=== PATIENT | female | born 1990 | race Caucasian/White ===

== ENCOUNTER 2022-12-05 13:57 | Outpatient (OUT) | payer OTHER, SELFPAY ==
--- NOTE | 2022-12-05 14:20 | CONS_ITS ---
CONSULTATION DATE: ??12/05/2022 TO:? Dayna Reeves CNP CHIEF COMPLAINT:? Left forearm pain from a work related injury. HISTORY:? She reports the pain as being 7-8/10 pain, sharp in character, seems to increase with activity such as pushing and pulling maneuvers.? She feels most comfortable in the semi-recumbent position.? Denies any change in bowel and bladder habits or new sensorimotor changes in the upper extremities. EXAM:? Notable for patient having some mild skin color changes overlying her left distal extremity, compared to the right.? She has some mild atrophy of her left thenar muscles compared to the right side.? There was no patchy dysesthesia but no true allodynia was noted in the area of pain.? There were no vascular changes.? I was unable to appreciate any nail growth changes, because the patient is wearing artificial nails.? It appears the patient has point tenderness along the medial and lateral aspect of her scar, and she has some mild myofascial spasm of various flexes of her left forearm compared to the right side. IMPRESSION:? 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 Diagnosis code G56.32 with associated myofascial spasm. PLAN:? I have placed her on baclofen 10 mg pills, half a pill to one pill b.i.d.? We will follow up with patient via telephone next week to monitor her response to the change in medication. As part of providing excellent, safe, comprehensive care, the following was completed at our patient's visit: 1. A medication reconciliation and review to ensure accurate knowledge of current/active medications, including asking our patients to inform us about any gzgj-aeu-dtijhqv medications or herbal remedies/nutritional supplements/alternative remedies. 2. A review to specifically ensure our patients have had annual screening for: elevated body mass index (BMI, see intake chart for exact total), tobacco use, screening for depression, and screening for unhealthy alcohol use.? When screening is concerning, patients are provided with education and the specific recommendation to discuss the concerning health issue and treatment options with their primary care provider. ALEXY
== END 2022-12-05 13:58 ==
PROVIDERS: PCP Nurse Practitioner Family; Visit Provider Anesthesiology Pain Medicine
DX: G56.32 Lesion of radial nerve, left upper limb (principal); G89.29 Other chronic pain; M62.838 Other muscle spasm
CPT/HCPCS: G0463

== ENCOUNTER 2023-08-22 15:29 | Outpatient (OUT) | payer OTHER, SELFPAY ==
--- NOTE | 2023-08-22 16:07 | P.CN_ITS ---
Consult Note: HPI Data of Consult Patient: known to practice within the last 3 years Requesting Physician: Tamar Guevara NP Primary Care Provider: OCTAVIA THOMAS Consult Narrative Reason for consult: f/u Narrative: Joy Arzola a pleasant 32 year old female presents for chronic left arm pain post work related injury. Pain 8/10 increasing to 10/10 with pushing, pulling, arm movement, lifting, activity. Patient has failed to benefit from tylenol, motrin, meloxicam, duloxetine, gabapentin, lyrica. Patient has had injections with orthopedics in the past without benefit. Patient has not trialed stellate ganglion nerve block or botox injections as previously recommended by other providers. Dr Feldman prescribed baclofen 10mg without benefit at last visit. cc:: CC: Tamar Guevara NP Review of Systems ROS Status of ROS 10 or more systems reviewed and unremark able except as noted in history and below Musculoskeletal Reports: extremity pain Neurological Reports: weakness in extremities Exam Narrative Exam Narrative: Notable for patient having some mild skin color changes overlying her left distal extremity, compared to the right.? She has some mild atrophy of her left thenar muscles compared to the right side.? There was no patchy dysesthesia but no true allodynia was noted in the area of pain.? There were no vascular changes. It appears the patient has point tenderness along the medial and lateral aspect of her scar, and she has some mild myofascial spasm of various flexes of her left forearm compared to the right side. Assessment and Plan Assessment and Plan (1) Entrapment of left radial nerve: (2) De Quervain's tenosynovitis: (3) Other synovitis and tenosynovitis, left hand: Plan start zonegran 50mg hs start tens f/u with Dr Feldman
== END 2023-08-22 15:30 | disposition home or self-care (01) ==
PROVIDERS: PCP Nurse Practitioner Family; Visit Provider Nurse Practitioner
DX: G58.8 Other specified mononeuropathies (principal); M65.4 Radial styloid tenosynovitis [de Quervain]
CPT/HCPCS: G0463

== ENCOUNTER 2023-09-18 15:09 | Outpatient (OUT) | payer OTHER, SELFPAY ==
--- NOTE | 2023-09-18 | CONS_ITS ---
CONSULTATION DATE: 09/18/2023 TO: Dr. Holden CHIEF COMPLAINT: Includes left upper extremity pain, left forearm pain. HISTORY: She reports the pain being 7/10, a deep aching pain, which is fairly constant. She states this is exacerbated by lifting maneuvers, pushing/pulling maneuvers. She feels most comfortable in the semi-recumbent position. Denies any change in bowel and bladder habits or new sensorimotor changes in her upper extremities. CURRENT MEDICATION: Includes Zonegran 50 mg at h.s. She denies any side effects and reports she does not see much benefit at this dose currently. She is also taking ibuprofen 400 mg daily p.r.n., which she uses infrequently. EXAM: Her examination is notable for the patient having dysesthesia, actually has allodynia along the dorsal portion of her forearm, along her scar, as well as positive dermatographia in various distributions of her left forearm. She demonstrates nail growth changes and skin color changes of her left upper extremity compared to her right. IMPRESSION: Our impression is patient appears to have chronic pain secondary to a work related injury, radial tunnel syndrome (diagnosis code G56.32). RECOMMENDATIONS: I have recommended she consider increasing her Zonegran 50 mg pills to a total of three pills at h.s. as tolerated, and she is to restart her baclofen 10 mg pills one at h.s. I have asked her to stagger the initiation and increase in the dose of these medication respectively. I will see her back in the office in four weeks? time or sooner if needed. As part of providing excellent, safe, comprehensive care, the following was completed at our patient's visit: 1. A medication reconciliation and review to ensure accurate knowledge of current/active medications, including asking our patients to inform us about any gfzs-wom-zrjwirh medications or herbal remedies/nutritional supplements/alternative remedies. 2. A review to specifically ensure our patients have had annual screening for: elevated body mass index (BMI, see intake chart for exact total), tobacco use, screening for depression, and screening for unhealthy alcohol use. When screening is concerning, patients are provided with education and the specific recommendation to discuss the concerning health issue and treatment options with their primary care provider. ALEXY
== END 2023-09-18 15:10 | disposition home or self-care (01) ==
LOC: PM 15:15
PROVIDERS: PCP Nurse Practitioner Family; Visit Provider Nurse Practitioner
DX: G56.32 Lesion of radial nerve, left upper limb (principal)
CPT/HCPCS: G0463

== ENCOUNTER 2023-12-04 14:59 | Outpatient (OUT) | payer SELFPAY ==
--- NOTE | 2023-12-04 | CONS_ITS ---
CONSULTATION DATE: 12/04/2023 TO: Dr. Holden HISTORY: Patient returns today complaining of pain in her left upper extremity. She describes this as two different kinds of pain; one is a sensitivity pain near the proximal portion of her scar, and one is a deep aching pain, which is in the lateral portion of her scar, involving her forearm. EXAM: She appears to have some very mild dermatographia on the left upper extremity compared to the right. She has some mild dysesthesia and hypoesthesia, as well as allodynia in patchy areas of her left upper extremity compared to the right. She has no appreciable nail growth changes and possibly some mild hair growth changes of her left upper extremity compared to the right. IMPRESSION: Our impression is patient appears to have chronic pain secondary to work related injury. Diagnosis Code: G56.32. RECOMMENDATIONS: At this point, I recommend she consider a left steroid block under fluoroscopic guidance. Gone over the details of the procedure with the patient. All questions answered. She agrees to proceed with the outlined plan. As part of providing excellent, safe, comprehensive care, the following was completed at our patient's visit: 1. A medication reconciliation and review to ensure accurate knowledge of current/active medications, including asking our patients to inform us about any rqeu-xkg-kvqaihj medications or herbal remedies/nutritional supplements/alternative remedies. 2. A review to specifically ensure our patients have had annual screening for: elevated body mass index (BMI, see intake chart for exact total), tobacco use, screening for depression, and screening for unhealthy alcohol use. When screening is concerning, patients are provided with education and the specific recommendation to discuss the concerning health issue and treatment options with their primary care provider. ALEXY
== END 2023-12-04 15:00 | disposition home or self-care (01) ==
LOC: PM 14:59
PROVIDERS: PCP Nurse Practitioner Family; Visit Provider Anesthesiology Pain Medicine
DX: G56.32 Lesion of radial nerve, left upper limb (principal)
CPT/HCPCS: G0463

== ENCOUNTER 2024-04-03 08:08 | Outpatient (OUT) | payer OTHER, SELFPAY ==
--- NOTE | 2024-04-03 08:08 | NM_ITS ---
[address] [address] Patient Name: TORREY ANTONY MRN: [id number] date: 1990 Sex: F Assigned Patient Location: [place] Current Patient Location: [place] Accession/Order Number: [id number] Exam Date: 04/03/2024 08:08 Report Date: 04/03/2024 14:14 At the request of: MIRIAM MADRID Procedure: NE bone 3 phase EXAMINATION: NE bone 3 phase HISTORY: CELLULITIS OF THE LEFT UPPER LIMB COMPARISON: No relevant comparison available. TECHNIQUE: 24.8 mCi Technetium 99m MDP was injected intravenously followed by acquisition of dynamic flow, immediate blood pool, and delayed static images. FINDINGS: IMAGED AREA: Chest and left arm FLOW PHASE: Normal. BLOOD POOL PHASE: Normal. DELAYED IMAGES: Normal. OTHER: Negative. NE/NE bone 3 phase IMPRESSION: No abnormality Electronically authenticated by: MAURO POSADAS Date: 04/03/2024 14:14
--- OUTSIDE RECORDS SUMMARY | 2024-04-03 08:13 | XMS_ITS | CCD ---
Author Organization [facility] Care Team Providers Care Irrigationist Designer Name Role Phone Turowski, Mani Unavailable Unavailable UNKNOWN, PROVIDER Unavailable Unavailable Petrilla, Andrés Unavailable Unavailable Turowski, Mani Unavailable Unavailable UNKNOWN, PROVIDER Unavailable Unavailable Petrilla, Andrés Unavailable Unavailable UNKNOWN, PROVIDER Unavailable Unavailable Petrilla, Andrés Unavailable Unavailable Turowski, Mani Unavailable Unavailable UNKNOWN, PROVIDER Unavailable Unavailable Petrilla, Andrés Unavailable Unavailable Turowski, Mani Unavailable Unavailable UNKNOWN, PROVIDER Unavailable Unavailable Petrilla, Andrés Unavailable Unavailable Turowski, Mani Unavailable Unavailable UNKNOWN, PROVIDER Unavailable Unavailable Petrilla, Andrés Unavailable Unavailable PROVIDER, UNKNOWN Unavailable Unavailable UNKNOWN, PROVIDER Unavailable Unavailable Petrilla, Andrés Unavailable Unavailable PROVIDER, UNKNOWN Unavailable Unavailable UNKNOWN, PROVIDER Unavailable Unavailable Petrilla, Andrés Unavailable Unavailable Sands, Nile Unavailable Unavailable UNKNOWN, PROVIDER Unavailable Unavailable Petrilla, Andrés Unavailable Unavailable PROVIDER, UNKNOWN Unavailable Unavailable UNKNOWN, PROVIDER Unavailable Unavailable Petrilla, Andrés Unavailable Unavailable PROVIDER, UNKNOWN Unavailable Unavailable UNKNOWN, PROVIDER Unavailable Unavailable Petrilla, Andrés Unavailable Unavailable Turowski, Mani Unavailable Unavailable UNKNOWN, PROVIDER Unavailable Unavailable Petrilla, Andrés Unavailable Unavailable Gabriel Oscar Unavailable Unavailable KAMRAN WALLIS (MARCIN-C) Unavailable Unavai lable Turowski, Mani Unavailable Unavailable UNKNOWN, PROVIDER Unavailable Unavailable Petrilla, Andrés Unavailable Unavailable PETRILLA, ANDRÉS Unavailable Unavailable PETRILLA, ANDRÉS Unavailable Unavailable GAICH, POLINA A Unavailable Unavailable GAICH, POLINA A Unavailable Unavailable BONNIE, ABDULAZIM Attending Unavailable BONNIE, ABDULAZIM Surgeon Unavailable BONNIE, ABDULAZIM Admitting Unavailable JULIUS, MIRIAM Primary Care Unavailable JULIUS, MIRIAM Referring Unavailable MN Procedure Practitioner Unavailab le BONNIE, ABDULAZIM Attending Unavailable BONNIE, ABDULAZIM Surgeon Unavailable BONNIE, ABDULAZIM Admitting Unavailable JULIUS, MIRIAM Referring Unavailable JULIUS, MIRIAM Primary Care Unavailable MN Procedure Practitioner Unavailab Mark Llanos Unavailable Dorina Latif Unavailable JoseFabiánel Unavailable Arely Jackman Unavailable Devi Tiki Unavailable WILLIAM, TIKI Primary Care Unavailable WILLIAM, TIKI Attending Unavailable WILLIAM, TIKI Admitting Unavailable LAKSHMIPATHY ., NARENDRANATH Attending Ada vailable WILLIAM, TIKI Primary Care Unavailable LAKSHMIPATHY ., NARENDRANATH Admitting Ada vailable PRACHI ., DR DIMPLE Melendrez Admitting Unavailable VELARDE ., DR DIMPLE Melendrez Consulting Unavailable VELARDE ., DR DIMPLE Melendrez Attending Unavailable WILLIAM, TIKI Primary Care Unavailable VELARDE ., DR DIMPLE Melendrez Attending Unavailable VELARDE ., DR DIMPLE Melendrez Admitting Unavailable SHANTELLE MILLER Consulting Unavailable WILLIAM, TIKI Primary Care Unavailable ROSA, HOME Consulting Unavailable ROSA, HOME Attending Unavailable WILLIAM, TIKI Primary Care Unavailable ROSA, HOME Admitting Unavailable ROSA, HOME Admitting Unavailable ROSA, HOME Attending Unavailable WILLIAM, TIKI Primary Care Unavailable BRIAN ., MARCIN MORENO Consulting UnavailMAURO Lr Unavailable TANI ., SHALA Attending Unavailable WILLIAM, TIKI Primary Care Unavailable TANI Jones, SHALA Admitting Unavailable DR MAURO POSADAS V Consulting Unavailable BRIAN Jones, MARCIN MORENO Consulting Unavailabl e WILLIAM, TIKI Primary Care Unavailable MIRIAM REEVES Attending Unavailable MIRIAM REEVES Admitting Unavailable RAMEZ, MARK Attending Unavailable WILLIAM, TIKI Primary Care Unavailable RAMEZ, MARK Admitting Unavailable WILLIAM, TIKI Primary Care Unavailable WILLIAM, TIKI Consulting Unavailable WILLIAM, TIKI Attending Unavailable WILLIAM, TIKI Admitting Unavailable WILLIAM, TIKI Consulting Unavailable WILLIAM, TIKI Primary Care Unavailable DR RUSS MARTIN Attending Unavailable DR RUSS MARTIN Admitting Unavailable WILLIAM, TIKI Consulting Unavailable WILLIAM, TIKI Attending Unavailable WILLIAM, TIKI Admitting Unavailable WILLIAM, TIKI Primary Care Unavailable Han Aronld Consulting Unavailable KEVIN JAMIL Attending Unavailable DR MAURO POSADAS V Consulting Unavailable KEVIN JAMIL Admitting Unavailable TIKI THOMAS Primary Care Unavailable KEVIN JAMIL Consulting Unavailable TIKI THOMAS Attending Unavailable TIKI THOMAS Admitting Unavailable TIKI THOMAS Primary Care Unavailable DARYL NICOLE Attending Unavailable NITZA Thomas Primary Care Provider MD Mark Myrick Attending Provider NITZA Thomas Primary Care Provider DO Oh Aparicio Emergency Provider [phone] Tiki Thomas Primary Care Unavailable Mark Myrick Attending Unavailable Mark Myrick Admitting Unavailable Oh Aparicio Attending Unavailable Oh Aparicio Admitting Unavailable Tiki Thomas Primary Care Unavailable Allergies Allergy Classification Reported Allergen(s) Allergy Type Date of Onset Reaction(s) Facility Penicillins (antibiotic) (1 source) Penicillin; Translations: [PENICILLIN] Drug Allergy 0 [facility] Repository (20 sources) Bee/Wasp/Ant venom Propensity to adverse reactions localized reaction [facility] Other (20 sources) Penicillin Drug Allergy [employer] [facility] Other (5 sources) Penicillins; Translations: [PENICILLINS] Drug allergy (disorder) 9 [facility] Repository (4 sources) BEE VENOM PROTEIN (HONEY BEE); Translations: [BEE VENOM PROTEIN (HONEY BEE)] Propensity to adverse reactions to drug (disorder) 5 localized reaction [facility] Repository (1 source) Penicillins Drug allergy (disorder) [address] [facility] Repository Medications Current Medications Medication Drug Class(es) Dates Sig (Normalized) Sig (Original) amphetamine aspartate 3.75 mg / amphetamine sulfate 3.75 mg / dextroamphetamine saccharate 3.75 mg / dextroamphetamine sulfate 3.75 mg oral tablet (1 source) Central Nervous System Stimulant Start: 10-16-2023 take 15 mg by mouth once daily Dextroamphetamine- Amphetamine Active 15 MG PO Daily October 16, 2023 12:00am 24 hr desvenlafaxine succinate 25 mg extended release oral tablet (1 source) Serotonin and Norepinephrine Reuptake Inhibitor Start: 10-16-2023 take 25 mg by mouth once daily Desvenlafaxine Succinate Active 25 MG PO Daily October 16, 2023 12:00am metoprolol tartrate 25 mg oral tablet (20 sources) beta-Adrenergic David Start: 07-13-2021 take 25 mg by mouth twice daily Metoprolol Tartrate Active 25 MG PO Twice daily July 13, 2021 1:00am take 1 tablet by mary th every twelve hours Lopressor 50 MG 1 tablet with food Orall y Twice a day Active Multivitamin preparation (3 sources) Start: 07-13-2021 take 1 tablet by mouth once daily Multivitamin Active 1 TAB PO Daily July 13, 2021 1:00am ondansetron 4 mg oral tablet (8 sources) Serotonin-3 Receptor Antagonist Start: 10-16-2023 take 4 mg by mouth every six hours Ondansetron Active 4 MG PO Q6H 14 October 16, 2023 12:00am Start: 10-16-2023 take 4 mg by mouth once daily Ondansetron Hcl Active 4 MG PO Daily October 16, 2023 12:00am Start: 01-18-2020 End: 07-13-2021 Ondansetron Discontinued 4 M G PO every 6 to 8 hours January 18, 2020 12:00am January 19, 2020 3:47pm predniSONE 20 mg oral tablet (2 sources) predniSONE 20 MG 1 tablet Orally bid for 4 days, then once daily for 8 days Active rimegepant 75 mg disintegrating oral tablet (1 source) Start: 10-16-19 take 1 tablet by mouth once daily Rimegepant (Nurtec Odt) 75 mg tablet,disintegrati ng Active 75 MG PO Daily October 16, 2023 12:00am Semaglutide (Ozempic) 2 mg/dose (8 mg/3 mL) pen injector (1 source) Start: 10-16-19 inject 2 mg by subcutaneous injection every week Semaglutide (Ozempic) 2 mg/dose (8 mg/3 mL) pen injector Active 2 MG SUBCUT every week October 16, 2023 12:00am SUMAtriptan 25 mg oral tablet (20 sources) Serotonin-1b and Serotonin-1d Receptor Agonist take 1 tablet by mouth every two hours as needed, then take 1 tablet by mouth twice daily as needed Imitrex 25 MG 1 tablet at least 2 hours between doses as needed Orally Twice a day Active Thyroid (Pork) (Tyler Thyroid) 90 mg tablet (1 source) Start: 12-07-19 take 1 tablet by mouth once daily Thyroid (Pork) (Tyler Thyroid) 90 mg tablet Active 90 MG PO Daily December 06, 2022 12:00am thyroid (prison) 90 mg oral tablet (2 sources) Start: 12-07-19 take 1 tablet by mouth once daily Thyroid (Pork) (Tyler Thyroid) 90 mg tablet Active 90 MG PO Daily December 06, 2022 12:00am Completed/Discontinued Medications Medication Drug Class(es) Dates Sig (Normalized) Sig (Original) acetaminophen 325 mg / HYDROcodone bitartrate 5 mg oral tablet (3 sources) Opioid Agonist Start: 01-18-2020 End: 07-13-2021 take 1 tablet by mouth every four to six hours Hydrocodone-Acetam inophen ([place]) 5-325 mg Tablet Discontinued 1 TAB PO EVERY 4-6 HOURS 7 3 January 18, 2020 July 13, 2021 11:53am Botulinum Toxin Type A (20 sources) Acetylcholine Release Inhibitor Start: 03-22-2023 Botox Mar, 10 mL Start: 12-14-2022 Botox Nov, 155 units Start: 12-14-2022 Botox Nov, 155 U Start: 08-24-2022 Botox Aug, 10 mL Start: 11-24-2021 Botox Nov, 10 mL 24 hr buPROPion hydrochloride 150 mg extended release oral tablet (3 sources) Aminoketone Start: 01-19-2020 End: 07-13-2021 take 1 tablet by mouth once daily Bupropion Hcl (Wellbutrin Xl) 150 mg tablet extended release 24 hr Discontinued 150 MG PO Daily January 19, 2020 12:00am July 13, 2021 11:53am cephalexin 500 mg oral capsule (20 sources) Cephalosporin Antibacterial take 2 capsules by mouth every twelve hours Cephalexin 500 MG 2 cap(s) Orally bid Not-Taking/PRN cetirizine hydrochloride 10 mg oral tablet (20 sources) Histamine-1 Receptor Antagonist Start: 09-28-2021 End: 10-16-2023 take 1 tablet by mouth once daily Cetirizine (Zyrtec) 10 mg Tablet Discontinued 10 MG PO Daily September 28, 2021 12:00am October 16, 2023 12:13pm citalopram 10 mg oral tablet (3 sources) Serotonin Reuptake Inhibitor Start: 01-19-2020 End: 07-13-2021 take 1 tablet by mouth once daily Citalopram (Celexa) 10 mg tablet Discontinued 10 MG PO Daily January 19, 2020 12:00am July 13, 2021 11:53am doxycycline hyclate 100 mg oral capsule (3 sources) Tetracycline-class Drug Start: 09-07-2021 End: 12-06-2022 take 100 mg by mouth once daily Doxycycline Hyclate Discontinued 100 MG PO Daily September 07, 2021 12:00am December 06, 2022 9:35am escitalopram 20 mg oral tablet (3 sources) Serotonin Reuptake Inhibitor Start: 07-13-2021 End: 07-13-2021 take 1 tablet by mouth once daily Escitalopram Oxalate (Lexapro) 20 mg Tablet Discontinued 20 MG PO Daily July 13, 2021 1:00am July 13, 2021 11:59am fexofenadine hydrochloride 180 mg oral tablet (3 sources) Histamine-1 Receptor Antagonist Start: 09-28-2021 End: 12-06-2022 take 1 tablet by mouth once daily Fexofenadine (Lorena Allergy) 180 mg Tablet Discontinued 180 MG PO Daily September 28, 2021 12:00am December 06, 2022 9:35am ibuprofen 800 mg oral tablet (3 sources) Nonsteroidal Anti-inflammatory Drug Start: 07-02-2018 End: 01-15-2020 take 800 mg by mouth three times daily Ibuprofen Discontinued 800 MG PO Three times daily July 02, 2018 1:00am January 15, 2020 8:18am levonorgestrel 0.898224 mg/hr intrauterine system (3 sources) Progestin, Progestin-containin g Intrauterine Device Start: 01-15-2020 End: 07-13-2021 Levonorgestrel (Anjana) 14 mcg/24 hrs (3 yrs) 13.5 mg Intrauterine Device Discontinued 1 DEVICE INTRAUTERI Once January 15, 2020 12:00am July 13, 2021 11:54am methylPREDNISolone (20 sources) Corticosteroid Start: 03-13-2019 Depo-Medrol 80 mg Feb, 80 mg phentermine hydrochloride 37.5 mg oral tablet (6 sources) Sympathomimetic Amine Anorectic Start: 09-07-2021 End: 10-16-2023 take 1 tablet by mouth once daily Phentermine (Adipex-P) 37.5 mg tablet Discontinued 37.5 MG PO Daily September 07, 2021 12:00am October 16, 2023 12:17pm Start: 01-15-2020 End: 07-13-2021 take 1 tablet by mouth once daily Phentermine (Adipex-P) 37.5 mg Tablet Discontinued 37.5 MG PO Daily January 15, 2020 12:00am July 13, 2021 11:54am promethazine hydrochloride 25 mg oral tablet (6 sources) Phenothiazine Start: 01-16-2020 End: 07-13-2021 take 25 mg by mouth every four to six hours Promethazine Discontinued 25 MG PO EVERY 4-6 HOURS January 16, 2020 12:00am January 19, 2020 3:47pm [email or web address] Amitriptyline HCL 2%, Capsaicin 0.025%, Clonidine HCL 0.23%, Gabapentin 6%, Lidocaine HCL 5% (20 sources) Start: 04-08-2021 [id number] Amitriptyline HCL 2%, Capsaicin 0.025%, Clonidine HCL 0.23%, Gabapentin 6%, Lidocaine HCL 5% as directed Topical rub 1-2 grams every 6-8 hours as needed for 30 days Mar, Not-Taking/PRN Start: 04-08-2021 [email or web address] Amitr iptyline HCL 2%, Capsaicin 0.025%, Clonidine HCL 0.23%, Gabapentin 6%, Lidocaine HCL 5% as directed Topical rub 1-2 grams every 6-8 hours as needed for 30 days Mar, Not-Taking Start: 04-08-2021 Start: 04-08-2021 [email or web address] Amitr iptyline HCL 2%, Capsaicin 0.025%, Clonidine HCL 0.23%, Gabapentin 6%, Lidocaine HCL 5% as directed Topical rub 1-2 grams every 6-8 hours as needed for 30 days Mar, Active triamcinolone acetonide 40 mg/ml injectable suspension (20 sources) Corticosteroid Start: 01-11-2022 Kenalog-40 Aug, 60 mg Start: 12-23-2020 Kenalog -40 mg Dec, 60 mg Problems Active Problems Problem Classification Problem Date Documented Da te Episodic/Chronic Abdominal pain (9 sources) Epigastric pain; Translations: [Unspecified abdominal pain] Onset: 12-12-2016 10-16-2023 Episodic Adjustment disorders (20 sources) Adjustment disorder with anxious mood; Translations: [Adjustment disorder with anxiety] Chronic Anxiety disorders (20 sources) Anxiety disorder, unspecified; Translations: [Claustrophobia] Onset: 11-13-2017 Chronic Complications of surgical procedures or medical care (6 sources) Headache following lumbar puncture; Translations: [Other reaction to spinal and lumbar puncture] 01-19-2020 Episodic Deficiency and other anemia (2 sources) Iron deficiency anemia secondary to blood loss (chronic); Translations: [Iron deficiency anemia secondary to blood loss (chronic)] Onset: 12-07-2016 Chronic Genitourinary symptoms and ill-defined conditions (1 source) Personal history of urinary (tract) infections; Translations: [PERS HX URINARY TRACT INFECTIONS] Onset: 11-14-2022 Episodic Headache, including migraine (20 sources) Migraine, unspecified, not intractable, without status migrainosus; Translations: [Migraine without aura, intractable, without status migrainosus] Onset: 02-02-2017 Resolved: 02-03-2022 Chronic Headache, including migraine (6 sources) Headache; Translations: [Headache] Onset: 03-08-2017 01-18-2020 Episodic Inflammatory diseases of female pelvic organs (4 sources) Acute vaginitis; Translations: [ACUTE VAGINITIS] Onset: 11-13-2022 Episodic Menstrual disorders (1 source) Excessive and frequent menstruation with irregular cycle; Translations: [Excessive and frequent menstruation with irregular cycle] Onset: 12-08-2016 Chronic Mood disorders (20 sources) Recurrent major depressive episodes, mild ; Translations: [Major depressive disorder, recurrent, mild] Chronic Mood disorders (2 sources) Major depressive disorder, single episode, unspecified; Translations: [Major depressive disorder, single episode, unspecified] Onset: 11-13-2017 Other aftercare (1 source) 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; Translations: [[facility] CURRENT DRUG THERAPY] Onset: 11-14-2022 Episodic Other connective tissue disease (20 sources) Extensor tenosynovitis of wrist; Translations: [Other synovitis and tenosynovitis, left hand] Episodic Other connective tissue disease (20 sources) Radial styloid tenosynovitis; Translations: [Radial styloid tenosynovitis [de Quervain]] Episodic Other connective tissue disease (10 sources) Myalgia, other site Onset: 11-11-2021 Resolved: 01-11-2022 Episodic Other gastrointestinal disorders (2 sources) Irritable bowel syndrome without diarrhea; Translations: [Irritable bowel syndrome without diarrhea] Onset: 12-12-2016 Chronic Other lower respiratory disease (1 source) Personal history of pneumonia (recurrent); Translations: [PERSONAL HX OF PNEUMONIA RECURRENT] Onset: 11-14-2022 Episodic Other nervous system disorders (20 sources) Cerebral cyst; Translations: [Cerebral cysts] Chronic Other nervous system disorders (20 sources) Arachnoid cyst; Translations: [Cerebral cysts] Chronic Other nervous system disorders (20 sources) Chronic pain; Translations: [Other chronic pain] 10-15-2023 Chronic Other nervous system disorders (20 sources) Other chronic pain; Translations: [Other chronic pain] Onset: 03-14-2021 Resolved: 02-03-2022 Chronic Other nervous system disorders (20 sources) Lesion of radial nerve; 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, 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 Other nervous system disorders (5 sources) Lesion of radial nerve, left upper limb; Translations: [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] Onset: 04-08-2021 Resolved: 04-08-2021 Chronic Other nervous system disorders (1 source) Cerebral cysts Onset: 07-06-2021 Resolved: 07-06-2021 Chronic Other non-traumatic joint disorders (2 sources) Pain in left elbow; Translations: [Pain in left elbow] Onset: 11-30-2022 Episodic Other nutritional; endocrine; and metabolic disorders (7 sources) Obesity; Translations: [Obesity, unspecified] Chronic Other upper respiratory infections (1 source) Acute upper respiratory infection, unspecified; Translations: [ACUTE UP RESPIRATORY INFECTION UNS] Onset: 11-04-2022 Episodic Spondylosis; intervertebral disc disorders; other back problems (20 sources) Cervical spondylosis; Translations: [Spondylosis without myelopathy or radiculopathy, cervical region] Onset: 06-06-2021 Resolved: 10-20-2021 Chronic Spondylosis; intervertebral disc disorders; other back problems (20 sources) Cervico-occipital neuralgia; Translations: [Occipital neuralgia] Onset: 03-14-2021 Resolved: 02-03-2022 Episodic Sprains and strains (20 sources) Sprain of left wrist; Translations: [Unspecified sprain of left wrist, initial encounter] Onset: 04-08-2021 Resolved: 10-18-2021 Episodic Unclassified (2 sources) Family history of familial hypercholesterolemi a; Translations: [Family history of familial hypercholesterolemi a] Onset: 05-02-2017 Unclassified (3 sources) ACUTE COUGH; Translations: [ACUTE COUGH] Onset: 11-10-2022 Unclassified (3 sources) COUGH, UNSPECIFIED; Translations: [COUGH, UNSPECIFIED] Onset: 11-04-2022 Unclassified (3 sources) CONTACT W/AND (SUSP) EXPOS COVID-19; Translations: [CONTACT W/AND (SUSP) EXPOS COVID-19] Onset: 05-27-2022 Past or Other Problems Problem Classification Problem Date Documented Da te Episodic/Chronic Allergic reactions (2 sources) Bee allergy status; Translations: [Bee allergy status] Onset: 05-02-2017 Episodic Deficiency and other anemia (1 source) Anemia, unspecified; Translations: [ANEMIA UNSPECIFIED] Onset: 04-07-2022 Episodic Fluid and electrolyte disorders (2 sources) Dehydration; Translations: [Dehydration] Onset: 05-22-2017 Episodic Gastritis and duodenitis (3 sources) Gastritis, unspecified, without bleeding; Translations: [Gastritis, unspecified, without bleeding] Onset: 04-07-2017 Episodic Gastrointestinal hemorrhage (4 sources) Hemorrhage of anus and rectum; Translations: [Hematemesis] Onset: 12-12-2016 Episodic Hemorrhoids (2 sources) First degree hemorrhoids; Translations: [First degree hemorrhoids] Onset: 12-12-2016 Episodic Malaise and fatigue (1 source) Other fatigue; Translations: [OTHER FATIGUE] Onset: 04-07-2022 Episodic Nausea and vomiting (8 sources) Nausea; Translations: [Nausea with vomiting, unspecified] Onset: 05-22-2017 Episodic Nonspecific chest pain (2 sources) Chest pain, unspecified; Translations: [Chest pain, unspecified] Onset: 04-07-2017 Episodic Other and unspecified benign neoplasm (1 source) Benign neoplasm of peripheral nerves and autonomic nervous system, unspecified; Translations: [BENIGN YAW PERIPH NERVES AND ANS UNS] Onset: 06-03-2022 Episodic Other connective tissue disease (1 source) Other synovitis and tenosynovitis, left hand; Translations: [Extensor tenosynovitis of left wrist M65.842] Onset: 04-08-2021 Resolved: 04-08-2021 Episodic Other connective tissue disease (1 source) Radial styloid tenosynovitis [de Quervain]; Translations: [De Quervain's disease (tenosynovitis) M65.4] Onset: 04-08-2021 Resolved: 04-08-2021 Episodic Other connective tissue disease (1 source) Pain in left hand Onset: 10-18-2021 Resolved: 10-18-2021 Episodic Other connective tissue disease (4 sources) Other enthesopathies, not elsewhere classified; Translations: [OTHER ENTHESOPATHIES NEC] Onset: 05-30-2022 Episodic Other connective tissue disease (1 source) Other muscle spasm; Translations: [OTHER MUSCLE SPASM] Onset: 06-03-2022 Episodic Other disorders of stomach and duodenum (2 sources) Other diseases of stomach and duodenum; Translations: [Other diseases of stomach and duodenum] Onset: 12-12-2016 Episodic Other gastrointestinal disorders (2 sources) Diarrhea, unspecified; Translations: [Diarrhea, unspecified] Onset: 05-22-2017 Episodic Other nutritional; endocrine; and metabolic disorders (4 sources) Abnormal weight gain; Translations: [ABNORMAL WEIGHT GAIN] Onset: 04-04-2022 Episodic Other screening for suspected conditions (not mental disorders or infectious disease) (4 sources) Abnormal results of thyroid function studies; Translations: [ABNORMAL RESULTS THR FUNCTION STDY] Onset: 07-07-2022 Episodic Other upper respiratory disease (1 source) Nasal congestion; Translations: [NASAL CONGESTION] Onset: 05-27-2022 Episodic Residual codes; unclassified (1 source) Acquired absence of both cervix and uterus; Translations: [ACQUIRED ABSENCE BOTH CERVIX AND UTERUS] Onset: 02-17-2022 Episodic Unclassified (4 sources) Family history of other mental and behavioral disorders; Translations: [Family history of ischemic heart disease and other diseases of the circulatory system] Onset: 02-02-2017 Episodic Unclassified (1 source) ACUTE COUGH; Translations: [ACUTE COUGH] Onset: 11-09-2022 Unclassified (1 source) COUGH, UNSPECIFIED; Translations: [COUGH, UNSPECIFIED] Onset: 11-02-2022 Unclassified (1 source) CONTACT W/AND (SUSP) EXPOS COVID-19; Translations: [CONTACT W/AND (SUSP) EXPOS COVID-19] Onset: 05-22-2022 Results Test Name Value Interpretation Reference Range Facility Alanine aminotransferase [En zymatic activity/volume] in Serum or PlasmaOrdered By: Oh Aparicio on 10-16-2023 ALT [Catalytic activity/Vol] 20 U/L 7-[address] [facility] Albumin [Mass/volume] in Ser um or Plasma by Bromocresol green (BCG) dye binding methoOrdered By: Oh Aparicio on 10-16-2023 Albumin BCG dye [Mass/Vol] 4.3 g/dL 3.5-5.[address] [facility] Alkaline phosphatase [Enzyma tic activity/volume] in Serum or PlasmaOrdered By: Oh Aparicio on 10-16-2023 ALP [Catalytic activity/Vol] 54 U/L 34-[address] [facility] Aspartate aminotransferase [ Enzymatic activity/volume] in Serum or PlasmaOrdered By: Oh Aparicio on 10-16-2023 AST [Catalytic activity/Vol] 17 U/L 13-[address] [facility] Basic Metabolic Panelon 04-3 Anion gap [Moles/Vol] 12.0 mmol/L Normal 6.0-15.0 [facility] Comment on above: Order Comment: helga r Performed By: #### B MP, LIPASE, SCAN CBC, HEPATIC #### [facility] [address] [place] [address] [place] Calcium [Mass/Vol] 9.4 mg/dL Normal 8.6-10.3 [facility] Comment on above: Order Comment: helga r Performed By: #### B MP, LIPASE, SCAN CBC, HEPATIC #### [facility] [address] [place] [id number] [place] Chloride [Moles/Vol] 103 mmol/L Normal 98-107 [facility] Group Comment on above: Order Comment: helga r Performed By: #### B MP, LIPASE, SCAN CBC, HEPATIC #### [facility] [address] CO2 [Moles/Vol] 30.1 mmol/L Normal 21.0-31.0 [facility] Comment on above: Order Comment: helga r Performed By: #### B MP, LIPASE, SCAN CBC, HEPATIC #### [facility] [address] Creatinine [Mass/Vol] 0.67 mg/dL Normal 0.60-1.20 [facility] Comment on above: Order Comment: helga r Performed By: #### B MP, LIPASE, SCAN CBC, HEPATIC #### [facility] [address] Creatinine Clr Calc Pharmacy 110.48 Normal [facility] Comment on above: Order Comment: helga r Performed By: #### B MP, LIPASE, SCAN CBC, HEPATIC #### [facility] [address] [place] [address] [place] GFR/1.73 sq M.predicted MDRD (S/P/Bld) [Vol rate/Area] mL/min/{1.73_m2} Normal [facility] Comment on above: Order Comment: helga r Performed By: #### B MP, LIPASE, SCAN CBC, HEPATIC #### [facility] [address] Glucose [Mass/Vol] 75 mg/dL Normal 70-100 [facility] Comment on above: Order Comment: helga r Result Comment: [place] om Glucose Reference Range is dependent on time and content of last meal. Glucose of more than 200 mg/dL in a nonstressed, ambulatory subject supports the diagnosis of Diabetes Mellitus. ADA recommended reference range Performed By: #### B MP, LIPASE, SCAN CBC, HEPATIC #### [facility] [address] Potassium [Moles/Vol] 4.1 mmol/L Normal 3.5-5.1 [facility] Comment on above: Order Comment: helga r Performed By: #### B MP, LIPASE, SCAN CBC, HEPATIC #### [facility] [address] Sodium [Moles/Vol] 141 mmol/L Normal 136-145 [facility] Comment on above: Order Comment: helga r Performed By: #### B MP, LIPASE, SCAN CBC, HEPATIC #### [facility] [address] Urea nitrogen [Mass/Vol] 8 mg/dL Normal 7-25 [facility] Comment on above: Order Comment: helga r Performed By: #### B MP, LIPASE, SCAN CBC, HEPATIC #### [facility] [address] Basophils Auto (Bld) [#/Vol] Ordered By: Oh Aparicio on 10-16-2023 Basophils (Bld) [#/Vol] 0.0 10*3/uL 0.0-0.[address] [facility] Basophils/100 WBC Auto (Bld) Ordered By: Oh Aparicio on 10-16-2023 Basophils/100 WBC (Bld) 0.3 % . [facility] Bilirubin Test strip Ql (U)O rdered By: Oh Aparicio on 10-16-2023 Bilirubin Ql (U) Negative Negative [facility] Bilirubin.direct [Mass/volum e] in Serum or PlasmaOrdered By: Oh Aparicio on 10-16-2023 Bilirubin.direct [Mass/Vol] 0.10 mg/dL 0.03-0.[address] [facility] Bilirubin.total [Mass/volume ] in Serum or PlasmaOrdered By: Oh Aparicio on 10-16-2023 Bilirubin [Mass/Vol] 0.4 mg/dL 0.3-1.[address] [facility] [address] abdomen pelvis w conon CT abdomen pelvis w [facility] [place] [address] [place] [address] CT Scan Report Signed Patient: Torrey Antony MR#: [id number] : 1990 Acct:[id number] Age/Sex: 32 / F ADM Date: 10/16/23 Loc: ER Room: Type: [facility] ER Attending Dr: Copies to: Oh Aparicio DO Ordering Provider: Oh Aparicio DO Date of Service: 10/16/23 CT/CT abdomen pelvis w con: abd pain CT abdomen and pelvis with contrast COMPARISON: None CLINICAL DATA: Right upper quadrant pain with nausea and vomiting for the past 2 days. Spiral images were obtained through the abdomen and pelvis following 90 mL Isovue-300. This CT exam was performed using one or more following dose reduction techniques: Automated exposure control, adjustment of the mA and/or kV according to patient size, or use of iterative reconstruction technique. Limited cuts through the lung bases show no contributory findings. There is focal fat within the liver near the fossa of the ligamentum teres. There is minimal nonspecific periportal edema. No calcified gallstones are identified. The spleen is slightly heterogeneous. The pancreas and adrenal glands show no acute findings. There are symmetric renal nephrograms, without hydronephrosis. The abdominal aorta is normal caliber. There are small mesenteric and retroperitoneal lymph nodes. No ascites is seen. There is fluid within the stomach. The small bowel loops are not distended. There is stool along the colon. A tiny umbilical hernia is visualized containing fat. Slight levoscoliotic curvature is present at the spine. Images through the pelvis show normal caliber small bowel loops. No appendiceal inflammation is seen. Stool is visualized at the distal colon. No diverticular disease is noted. The uterus is surgically absent. There is a small cystic area within the left ovary with irregular enhancing rim that may be an involuting corpus luteum of menstruation. There is a small amount of fluid at the posterior cul-de-sac that may be physiologic. No bladder abnormalities are seen. CT/CT abdomen pelvis w con IMPRESSION: NO BOWEL OR URINARY TRACT OBSTRUCTION. NO APPENDICITIS. TRACE AMOUNT OF FREE PELVIC FLUID, POTENTIALLY PHYSIOLOGIC. Impression dictated by: Anastasia Nunez M.D.10/16/2023 2:09 PM Dictation Location: [place] [address] Transcribed By: [facility] 10/16/23 1404 Dictated By: Anastasia Nunez MD 10/16/23 1355 Signed By: 10/16/23 1404 Normal [facility] Calcium [Mass/volume] in Ser um or PlasmaOrdered By: Oh Aparicio on 10-16-2023 Calcium [Mass/Vol] 9.4 mg/dL 8.6-10.3 [facility] Carbon dioxide, total [Moles /volume] in Serum or PlasmaOrdered By: Oh Aparicio on 10-16-2023 CO2 [Moles/Vol] 30.1 mmol/L 21.0-31.0 [facility] Chloride [Moles/volume] in S kusum or PlasmaOrdered By: Oh Aparicio on 10-16-2023 Chloride [Moles/Vol] 103 mmol/L 98-107 [facility] Color Auto (U)Ordered By: Lele Aparicio on 10-16-2023 Color (U) Yellow Yellow [facility] Creatinine [Mass/volume] in Serum or PlasmaOrdered By: Oh Aparicio on 10-16-2023 Creatinine [Mass/Vol] 0.67 mg/dL 0.60-1.20 [facility] Eosinophils Auto (Bld) [#/Vo l]Ordered By: Oh Aparicio on 10-16-2023 Eosinophils (Bld) [#/Vol] 0.2 10*3/uL 0.0-0.[address] [facility] Eosinophils/100 WBC Auto (Bl d)Ordered By: Oh Aparicio on 10-16-2023 Eosinophils/100 WBC (Bld) 2.5 % . [facility] Erythrocyte distribution wid th Auto (RBC) [Ratio]Ordered By: Oh Aparicio on 10-16-2023 Erythrocyte distribution width (RBC) [Ratio] 13.7 % 11.9-15.[address] [facility] Globulin Calc (S) [Mass/Vol] Ordered By: Oh Aparicio 10-16-2023 Globulin (S) [Mass/Vol] 2.3 g/dL [facility] Glucose [Mass/volume] in Ser um or PlasmaOrdered By: Oh Aparicio on 10-16-2023 Glucose [Mass/Vol] 75 mg/dL 70-100 [facility] Comment on above: ADA recommended refe rence rangeRandom Glucose Reference Range is dependent on time and content of last meal. Glucose of more than 200 mg/dL in a nonstressed, ambulatory subject supports the diagnosis of Diabetes Mellitus. HCG ( test) IA.rapi d Ql (U)Ordered By: Oh Aparicio on 10-16-2023 HCG ( test) Ql (U) Negative [facility] HCG,Urineon 10-16-2023 Beta HCG ( test) Ql (U) Negative Normal [facility] Comment on above: Order Comment: Name Collection Type:: Voided Result Comment: PERF ORMED BY: [place] [address] PATHOLOGIST [employer]ARING [employer]G TRAINER TAZ DALY M.D. Performed By: #### U HCG, UA #### [address] Hematocrit Auto (Bld) [Volum e fraction]Ordered By: Oh Aparicio on 10-16-2023 Hematocrit (Bld) [Volume fraction] 40.4 % 34.0-46.[address] [facility] Hemoglobin [Mass/volume] in BloodOrdered By: Oh Aparicio on 10-16-2023 Hemoglobin (Bld) [Mass/Vol] 13.7 g/dL 11.8-15.[address] [facility] Hepatic Panelon 10-16-2023 Albumin [Mass/Vol] 4.3 g/dL Normal 3.5-5.7 [facility] Comment on above: Order Comment: helga r Performed By: #### B MP, LIPASE, SCAN CBC, HEPATIC #### [place] [address] [place] Albumin/Globulin [Mass ratio] 1.9 {ratio} Normal [facility] Comment on above: Order Comment: helga r Performed By: #### B MP, LIPASE, SCAN CBC, HEPATIC #### [place] [address] [place] ALP [Catalytic activity/Vol] 54 U/L Normal 34-104 [facility] Comment on above: Order Comment: helga r Performed By: #### B MP, LIPASE, SCAN CBC, HEPATIC #### [address] ALT [Catalytic activity/Vol] 20 U/L Normal 7-52 [facility] Comment on above: Order Comment: helga r Performed By: #### B MP, LIPASE, SCAN CBC, HEPATIC #### [address] AST [Catalytic activity/Vol] 17 U/L Normal 13-39 [facility] Comment on above: Order Comment: helga r Performed By: #### B MP, LIPASE, SCAN CBC, HEPATIC #### [address] Bilirubin [Mass/Vol] 0.4 mg/dL Normal 0.3-1.0 [facility] Comment on above: Order Comment: helga r Performed By: #### B MP, LIPASE, SCAN CBC, HEPATIC #### [address] Bilirubin,Indirect 0.3 mg/dL Normal [facility] Comment on above: Order Comment: helga r Performed By: #### B MP, LIPASE, SCAN CBC, HEPATIC #### [address] Bilirubin.indirect [Mass/Vol] 0.10 mg/dL Normal 0.03-0.18 [facility] Comment on above: Order Comment: helga r Performed By: #### B MP, LIPASE, SCAN CBC, HEPATIC #### [address] Globulin (S) [Mass/Vol] 2.3 g/dL Normal [facility] Comment on above: Order Comment: helga r Performed By: #### B MP, LIPASE, SCAN CBC, HEPATIC #### [address] Protein [Mass/Vol] 6.6 g/dL Normal 6.4-8.9 [facility] Comment on above: Order Comment: helga r Performed By: #### B MP, LIPASE, SCAN CBC, HEPATIC #### [address] Ketones Auto test strip (U) [Mass/Vol]Ordered By: Oh Aparicio on 10-16-2023 Ketones (U) [Mass/Vol] Negative Negative [facility] Leukocytes [#/volume] correc milla for nucleated erythrocytes in Blood by Automated counOrdered By: Oh Aparicio on 10-16-2023 WBC corrected for nucl RBC Auto (Bld) [#/Vol] 6.3 10*3/uL 3.8-11.[address] [facility] Lipaseon 10-16-2023 Lipase [Catalytic activity/Vol] 7.0 U/L Low 11.0-82.0 [facility] Comment on above: Order Comment: helga r Result Comment: PERF ORMED BY: [facility] [address] [place] [address] PATHOLOGIST [employer]ING [employer] TRAINER TAZ DALY M.D. Performed By: #### B MP, LIPASE, SCAN CBC, HEPATIC #### [address] Lipase [Enzymatic activity/v olume] in Serum or PlasmaOrdered By: Oh Aparicio on 10-16-2023 Lipase [Catalytic activity/Vol] 7.0 U/L 11.0-82.[address] [facility] Lymphocytes Auto (Bld) [#/Vo l]Ordered By: Oh Aparicio on 10-16-2023 Lymphocytes (Bld) [#/Vol] 2.2 10*3/uL 1.00-4.[address] [facility] Lymphocytes/100 WBC Auto (Bl d)Ordered By: Oh Aparicio on 10-16-2023 Lymphocytes/100 WBC (Bld) 34.2 % . [facility] MCH Auto (RBC) [Entitic mass ]Ordered By: Oh Aparicio on 10-16-2023 MCH (RBC) [Entitic mass] 31.0 pg 24.7-34.[address] [facility] MCHC Auto (RBC) [Mass/Vol]Or dered By: Oh Aparicio on 10-16-2023 MCHC (RBC) [Mass/Vol] 33.9 g/dL 32.0-35.0 [facility] MCV Auto (RBC) [Entitic vol] Ordered By: Oh Aparicio on 10-16-2023 MCV (RBC) [Entitic vol] 91.5 fL 80-[address] [facility] Monocyte distribution width [Entitic volume] in Blood by AutomatedOrdered By: Oh Aparicio on 10-16-2023 Monocyte distribution width Auto (Bld) [Entitic vol] 17.06 % 0.00-20.[address] [facility] Monocytes Auto (Bld) [#/Vol] Ordered By: Oh Aparicio on 10-16-2023 Monocytes (Bld) [#/Vol] 0.4 10*3/uL 0.0-0.[address] [facility] Monocytes/100 WBC Auto (Bld) Ordered By: Oh Aparicio on 10-16-2023 Monocytes/100 WBC (Bld) 5.9 % . [facility] Neutrophils Auto (Bld) [#/Vo l]Ordered By: Oh Aparicio on 10-16-2023 Neutrophils (Bld) [#/Vol] 3.6 10*3/uL 1.8-7.[address] [facility] Neutrophils/100 WBC Auto (Bl d)Ordered By: Oh Aparicio on 10-16-2023 Neutrophils/100 WBC (Bld) 57.1 % . [facility] Nitrite Test strip Ql (U)Ord ered By: Oh Aparicio on 10-16-2023 Nitrite Ql (U) Negative Negative [facility] No Panel InformationOrdered By: Oh Aparicio on 10-16-2023 Estimated GFR (CKD-EPI) > 60.0 mL/Min [facility] Creatinine Clearance (Chem 110.[address] [facility] Nucleated erythrocytes [Pres ence] in Blood by Automated countOrdered By: Oh Aparicio on 10-16-2023 Nucleated RBC Auto Ql (Bld) 0.2 /100{WBC} 0-0.[address] [facility] Platelet adequacy [Presence] in Blood by Light microscopyOrdered By: Oh Aparicio on 10-16-2023 Platelets LM Ql (Bld) Normal Normal [facility] Platelet mean volume Auto (B ld) [Entitic vol]Ordered By: Oh Aparicio on 10-16-2023 Platelet mean volume (Bld) [Entitic vol] 11.6 fL 6.3-10.[address] [facility] Platelet morphology finding [Identifier] in BloodOrdered By: Oh Aparicio on 10-16-2023 Platelet morphology finding Nom (Bld) N/A [facility] Platelets Auto (Bld) [#/Vol] Ordered By: Oh Aparicio on 10-16-2023 Platelets (Bld) [#/Vol] 174 10*3/uL 150-[address] [facility] Platelets Large [Presence] i n Blood by Light microscopyOrdered By: Oh Aparicio on 10-16-2023 Platelets Large LM Ql (Bld) Slight [facility] Potassium [Moles/volume] in Serum or PlasmaOrdered By: Oh Aparicio on 10-16-2023 Potassium [Moles/Vol] 4.1 mmol/L 3.5-5.1 [facility] Protein Auto test strip (U) [Mass/Vol]Ordered By: Oh Aparicio on 10-16-2023 Protein (U) [Mass/Vol] Negative Negative [facility] Protein [Mass/volume] in Ser um or PlasmaOrdered By: Oh Aparicio on 10-16-2023 Protein [Mass/Vol] 6.6 g/dL 6.4-8.9 [facility] RBC Auto (Bld) [#/Vol]Ordere d By: Oh Aparicio on 10-16-2023 RBC (Bld) [#/Vol] 4.42 10*6/uL 3.60-5.00 [facility] RBC morphologyOrdered By: Lele Aparicio on 10-16-2023 RBC morphology finding Nom (Bld) Normal Normal [facility] Scan and CBCon 10-16-2023 Basophils (Bld) [#/Vol] 0.0 10*3/uL Normal 0.0-0.2 [facility] Comment on above: Order Comment: helga r Performed By: #### B MP, LIPASE, SCAN CBC, HEPATIC #### [facility] [address] [place] [address] [place] Basophils/100 WBC (Bld) 0.3 % Normal . [facility] Comment on above: Order Comment: helga r Performed By: #### B MP, LIPASE, SCAN CBC, HEPATIC #### [facility] [address] [place] [address] [place] Eosinophils (Bld) [#/Vol] 0.2 10*3/uL Normal 0.0-0.45 [facility] Comment on above: Order Comment: helga r Performed By: #### B MP, LIPASE, SCAN CBC, HEPATIC #### [address] Eosinophils/100 WBC (Bld) 2.5 % Normal . [facility] Comment on above: Order Comment: helga r Performed By: #### B MP, LIPASE, SCAN CBC, HEPATIC #### [address] Erythrocyte distribution width (RBC) [Ratio] 13.7 % Normal 11.9-15.3 [facility] Comment on above: Order Comment: helga r Performed By: #### B MP, LIPASE, SCAN CBC, HEPATIC #### [address] Hematocrit (Bld) [Volume fraction] 40.4 % Normal 34.0-46.4 [facility] Comment on above: Order Comment: helga r Performed By: #### B MP, LIPASE, SCAN CBC, HEPATIC #### [address] Hemoglobin (Bld) [Mass/Vol] 13.7 g/dL Normal 11.8-15.4 [facility] Comment on above: Order Comment: helga r Performed By: #### B MP, LIPASE, SCAN CBC, HEPATIC #### [address] Large Platelets Slight Normal The Replaced By [facility] Comment on above: Order Comment: helga r Result Comment: PERF ORMED BY: [place] [address] PATHOLOGIST HEARING DOG TRAINER TAZ DALY M.D. Performed By: #### B MP, LIPASE, SCAN CBC, HEPATIC #### [address] Lymphocytes (Bld) [#/Vol] 2.2 10*3/uL Normal 1.00-4.8 [facility] Comment on above: Order Comment: helga r Performed By: #### B MP, LIPASE, SCAN CBC, HEPATIC #### [address] Lymphocytes/100 WBC (Bld) 34.2 % Normal . [facility] Comment on above: Order Comment: helga r Performed By: #### B MP, LIPASE, SCAN CBC, HEPATIC #### [address] MCH (RBC) [Entitic mass] 31.0 pg Normal 24.7-34.3 [facility] Comment on above: Order Comment: helga r Performed By: #### B MP, LIPASE, SCAN CBC, HEPATIC #### [address] MCV (RBC) [Entitic vol] 91.5 fL Normal 80-100 [facility] Comment on above: Order Comment: helga r Performed By: #### B MP, LIPASE, SCAN CBC, HEPATIC #### [address] Mean Corpuscular HGB Conc 33.9 g/dL Normal 32.0-35.0 [facility] Comment on above: Order Comment: helga r Performed By: #### B MP, LIPASE, SCAN CBC, HEPATIC #### [address] Monocytes (Bld) [#/Vol] 0.4 10*3/uL Normal 0.0-0.8 [facility] Comment on above: Order Comment: helga r Performed By: #### B MP, LIPASE, SCAN CBC, HEPATIC #### [address] Monocytes/100 WBC (Bld) 17.06 % Normal 0.00-20.00 [facility] Comment on above: Order Comment: helga r Performed By: #### B MP, LIPASE, SCAN CBC, HEPATIC #### [address] Monocytes/100 WBC (Bld) 5.9 % Normal . [facility] Comment on above: Order Comment: helga r Performed By: #### B MP, LIPASE, SCAN CBC, HEPATIC #### [address] Neutrophils (Bld) [#/Vol] 3.6 10*3/uL Normal 1.8-7.7 [facility] Comment on above: Order Comment: helga r Performed By: #### B MP, LIPASE, SCAN CBC, HEPATIC #### [address] Neutrophils/100 WBC (Bld) 57.1 % Normal . [facility] Comment on above: Order Comment: helga r Performed By: #### B MP, LIPASE, SCAN CBC, HEPATIC #### [address] NRBC% 0.2 /100{WBC} Normal 0-0.5 [facility] Comment on above: Order Comment: helga r Performed By: #### B MP, LIPASE, SCAN CBC, HEPATIC #### [address] Platelet Estimate Normal Normal Normal [facility] Comment on above: Order Comment: helga r Performed By: #### B MP, LIPASE, SCAN CBC, HEPATIC #### [address] Platelet mean volume (Bld) [Entitic vol] 11.6 fL High 6.3-10.7 [facility] Comment on above: Order Comment: helga r Performed By: #### B MP, LIPASE, SCAN CBC, HEPATIC #### [address] Platelets (Bld) [#/Vol] 174 10*3/uL Normal 150-450 [facility] Comment on above: Order Comment: helga r Performed By: #### B MP, LIPASE, SCAN CBC, HEPATIC #### [address] RBC (Bld) [#/Vol] 4.42 10*6/uL Normal 3.60-5.00 [facility] Comment on above: Order Comment: helga r Performed By: #### B MP, LIPASE, SCAN CBC, HEPATIC #### [facility] [address] RBC morphology finding Nom (Bld) Normal Normal Normal [facility] Comment on above: Order Comment: helga r Performed By: #### B MP, LIPASE, SCAN CBC, HEPATIC #### [facility] [address] WBC (Bld) [#/Vol] 6.3 10*3/uL Normal 3.8-11.6 [facility] Comment on above: Order Comment: helga r Performed By: #### B MP, LIPASE, SCAN CBC, HEPATIC #### [facility] [address] Serum or plasma albumin/glob ulin mass ratioOrdered By: Oh Aparicio on 10-16-2023 Albumin/Globulin [Mass ratio] 1.9 {ratio} [facility] Serum or plasma anion gap de terminationOrdered By: Oh Aparicio on 10-16-2023 Anion gap [Moles/Vol] 12.0 mmol/L 6.0-15.0 [facility] Serum or plasma non-glucuron idated bilirubin measurement (mass/volume)Ordered By: Oh Aparicio on 10-16-2023 Bilirubin.indirect [Mass/Vol] 0.3 mg/dL [facility] Sodium [Moles/volume] in Ser um or PlasmaOrdered By: Oh Aparicio on 10-16-2023 Sodium [Moles/Vol] 141 mmol/L 136-145 [facility] Specific gravity Auto test s trip (U) [Rel density]Ordered By: Oh Aparicio on 10-16-2023 Specific gravity (U) [Rel density] 1.006 1.001-1.[address] [facility] US gall bladderon 10-16-2023 US gall bladder [facility] [place] [address] [place] [address] Ultrasound Report Signed Patient: Torrey Antony MR#: [id number] : 1990 Acct:[id number] Age/Sex: 32 / F ADM Date: 10/16/23 Loc: ER Room: Type: [facility] ER Attending Dr: Ordering Provider: Oh Aparicio DO Date of Service: 10/16/23 US/US gall bladder: upper abd pain Copies to: Oh Aparicio DO LIMITED ABDOMINAL ULTRASOUND - GALLBLADDER CLINICAL HISTORY: Right upper quadrant pain, nausea and vomiting COMPARISON: None The gallbladder is physiologically distended without shadowing calculi, wall thickening or pericholecystic fluid. No intra- or extrahepatic biliary dilatation is evident. The common duct measures 2 - 3 mm. The liver and pancreas show no acute findings. Limited imaging of the right kidney shows no hydronephrosis or perinephric fluid. US/US gall bladder IMPRESSION: NO GALLBLADDER PATHOLOGY. Impression dictated by: Anastasia Nunez M.D.10/16/2023 1:27 PM Dictation Location: [place] [address] Tech: Katharina Melvin Transcribed By: DIANA 10/16/23 1327 Dictated By: Anastasia Nunez MD 10/16/23 1325 Signed By: 10/16/23 1327 Normal [facility] Urea nitrogen [Mass/volume] in Serum or PlasmaOrdered By: Oh Aparicio on 10-16-2023 Urea nitrogen [Mass/Vol] 8 mg/dL 01-[address] [facility] Urinalysison 10-16-2023 Appearance (U) Clear Normal Clear [facility] Comment on above: Order Comment: Name Collection Type:: Voided Performed By: #### U HCG, UA #### [place] [address] [place] Bilirubin,Urine Negative Normal Negative [facility] Comment on above: Order Comment: Name Collection Type:: Voided Performed By: #### U HCG, UA #### [facility] [address] [place] [address] [place] Color (U) Yellow Normal Yellow [facility] Comment on above: Order Comment: Name Collection Type:: Voided Performed By: #### U HCG, UA #### [facility] [address] [place] [id number] [place] Glucose Ql (U) Normal Normal Normal [facility] [facility] Comment on above: Order Comment: Name Collection Type:: Voided Performed By: #### U HCG, UA #### [facility] [address] [place] [address] [place] Ketones Ql (U) Negative Normal Negative The [facility] Comment on above: Order Comment: Name Collection Type:: Voided Performed By: #### U HCG, UA #### [facility] [address] Leukocyte esterase Test strip Ql (U) Negative Normal Negative The [facility] Comment on above: Order Comment: Name Collection Type:: Voided Performed By: #### U HCG, UA #### [place] [address] [place] Nitrite,Urine Negative Normal Negative The [facility] Comment on above: Order Comment: Name Collection Type:: Voided Performed By: #### U HCG, UA #### [address] Occult Blood,Urine Negative Normal Negative The [facility] Comment on above: Order Comment: Name Collection Type:: Voided Performed By: #### U HCG, UA #### [place] [address] [place] pH (U) 7.0 [pH] Normal 5.0-9.0 [facility] Comment on above: Order Comment: Name Collection Type:: Voided Performed By: #### U HCG, UA #### [place] [address] [place] Protein,Urine Negative Normal Negative The [facility] Comment on above: Order Comment: Name Collection Type:: Voided Performed By: #### U HCG, UA #### [place] [address] [place] Specificy [place],Urine 1.006 Normal 1.001-1.030 [facility] Comment on above: Order Comment: Name Collection Type:: Voided Performed By: #### U HCG, UA #### [place] [address] [place] Urobilinogen,Urine Normal Normal Normal The [facility] Comment on above: Order Comment: Name Collection Type:: Voided Performed By: #### U HCG, UA #### [facility] [address] [id number] [facility] [[email or web address]] Urine clarity by refractomet ry automatedOrdered By: Oh Aparicio on 10-16-2023 Clarity Refractometry automated (U) Clear Clear [facility] Urine glucose measurement by automated test strip (mass/volume)Ordered By: Oh Aparicio on 10-16-2023 Glucose Auto test strip (U) [Mass/Vol] Normal mg/dL Normal [facility] Urine hemoglobin detection b y automated test stripOrdered By: Oh Aparicio on 10-16-2023 Hemoglobin Auto test strip Ql (U) Negative Negative [facility] Urine leukocyte esterase det ection by automated test stripOrdered By: Oh Aparicio on 10-16-2023 Leukocyte esterase Auto test strip Ql (U) Negative Negative [facility] Urobilinogen Auto test strip (U) [Mass/Vol]Ordered By: Oh Aparicio on 10-16-2023 Urobilinogen (U) [Mass/Vol] Normal mg/dL Normal [facility] WBC Auto (Bld) [#/Vol]Ordere d By: Oh Aparicio on 10-16-2023 WBC (Bld) [#/Vol] 6.3 10*3/uL 3.8-11.6 [facility] pH Auto test strip (U)Ordere d By: Oh Aparicio on 10-16-2023 pH (U) 7.0 [pH] 5.0-9.[address] [facility] Office Visiton 11-30-2022 Follow-up visit [id number] Torrey Antony 1990 F Date Provider Department Center 11/30/2022 [facility] MP[facility]THO Family History Problem Relation Age of Onset No Known Problems Mother Hypertension Father Hyperlipidemia Father Family Status - Relation Status Age at Mother Alive Father Alive Level of Service:02381 [place] OFFICE/OUTPATIENT ESTABLISHED LOW MDM 20-29 MIN Reason for Visit and Comments: Pain [136] Normal [facility] XR CHEST 2 Von 11-09-2022 XR CHEST 2 V XR CHEST 2 V COMPARISON: October 2022 chest x-ray CLINICAL HISTORY: Cough TECHNIQUE: 2 views FINDINGS: There is a normal cardiac and mediastinal contour. The pulmonary vascular pattern is normal. The lungs are clear and the pleural margins are sharp. There are no significant skeletal abnormalities. IMPRESSION: NO ACUTE RADIOGRAPHIC FINDINGS. Electronically authenticated by: HAN ARNOLD Date: 2022-11-09 17:20 Normal [facility] XR CHEST 1 Von 11-02-2022 XR CHEST 1 V EXAMINATION: XR CHES T 1 V HISTORY: Cough and congestion COMPARISON: X-rays 02/15/2022 TECHNIQUE: Portable chest FINDINGS: The lung parenchyma is free of consolidation or infiltrate. No pneumothorax or pleural effusion. The cardiac, mediastinal and hilar contours are normal. The visualized osseous structures exhibit no gross abnormality. IMPRESSION: No acute cardiopulmonary abnormality. Electronically authenticated by: MAURO NUNEZ Date: 2022-11-02 20:46 Normal [facility] THYROID ANTIBODIESon 023 Thyroglobulin Antibody <1.0 Normal 0.0-0.9 Th e [facility] Comment on above: Result Comment: Thyr oglobulin Antibody measured by [employer] Methodology Performed By: #### T HYSANKET #### [facility] [address] [place] [address] Dr. Rigo Sands Thyroid Peroxidase (TPO) Ab <9 Normal 0-34 [facility] Comment on above: Performed By: #### T HYSANKET #### [facility] [address] [place] [address] Dr. Rigo Sands US THYROIDon 07-10-2022 US THYROID EXAMINATION: US THYR OID HISTORY: Thyroid function tests abnormal COMPARISON: No relevant comparison available. TECHNIQUE: Sonographic images of the thyroid gland were obtained. FINDINGS: The right thyroid lobe is normal in size, contour and homogeneous echotexture measuring 4.8 x 1.2 x 1.6 cm. Single 3 mm area of anechoic echogenicity, cyst. No significant nodules The thyroid isthmus measures 3 mm, homogeneous. No focal nodule The left thyroid lobe is normal in size, contour and homogeneous echotexture measuring 4.5 x 0.8 x 1.5 cm. Single 3 mm area of anechoic echogenicity with an echogenic focus, colloid cyst is favored. No significant nodules IMPRESSION: No significant thyroid nodules Electronically authenticated by: MAURO POSADAS Date: 2022-07-10 06:33 Normal [facility] FREE T3on 07-07-2022 FREE T3 2.99 pg/mlL Normal 2.18-3.98 [facility] Comment on above: Performed By: #### T SH, FT3 #### [facility] [address] [place] [address] Dr. Rigo Sands FREE T4on 07-07-2022 Free T4 [Mass/Vol] 0.64 ng/dL Critically low 0.76-1.46 Th [facility] Comment on above: Performed By: #### F T4 #### [facility] [address] [place] [address] Dr. Rigo Sands TSHon 07-07-2022 TSH 0.764 uIU/mL Normal 0.358-3.740 [facility] Comment on above: Performed By: #### T SH, FT3 #### [facility] [address] [place] [address] Dr. Rigo Sands Covid-19 PCR (CVDTB)on SARS-CoV-2 (COVID-19) RNA OK+probe Ql (Unsp spec) Not detected Normal NOT DETECTED The [facility] Comment on above: Result Comment: When diagnostic testing is negative, the possibility of a false negative should be considered in the context of a patient's recent exposures and the presence of clinical signs and symptoms consistent with SARS-CoV-2. This test is not yet approved or cleared by the [place] FDA. When there are no FDA-approved or cleared tests available, and other criteria are met, FDA can make tests available under an emergency access mechanism called an Emergency Use Authorization (EUA). The EUA for this test is supported by the Annual Giving Manager of Health and Human Service's declaration that circumstances exist to justify the emergency use of in vitro diagnostics for the detection and/or diagnosis of the virus that causes COVID-19. This EUA will remain in effect for the duration of the COVID-19 declaration justifying emergency of IVDs, unless it is terminated or revoked by the FDA (after which the test may no longer be used). Performed By: #### C VDTBH #### [facility] [address] [place] [address] Dr. Rigo Sands CBC AUTO DIFFon 04-04-2022 BASO # 0.0 103/ul Normal 0.0-0.1 The [facility] Comment on above: Performed By: #### C BC ####[facility] [address] [address]Dr. Rigo Sands Basophils/100 WBC (Bld) 0.3 % Normal 0.2-2.0 The [facility] Comment on above: Performed By: #### C BC ####[facility] [address] [place], [place] [address]Dr. Rigo Sands EO # 0.1 103/ul Normal 0.0-0.7 The [facility] Comment on above: Performed By: #### C BC ####[facility] [address] [place], [place] [address]Dr. Hilarygilma Sands Eosinophils/100 WBC (Bld) 0.8 % Critically low 0.9-7.0 The [facility] Comment on above: Performed By: #### C BC ####[facility] [address] [place], [place] [address]Dr. Rigo Sands Erythrocyte distribution width (RBC) [Ratio] 13.2 % Normal 11.0-15.0 The [facility] Comment on above: Performed By: #### C BC ####[facility] [address] [place], [place] [address]Dr. Rigo Sands Hematocrit (Bld) [Volume fraction] 42.0 % Normal 36.0-48.0 The [facility] Comment on above: Performed By: #### C BC ####[facility] [address] [place], [place] [address]Dr. Rigo Sands Hemoglobin (Bld) [Mass/Vol] 13.8 g/dL Normal 12.0-16.0 The [facility] Comment on above: Performed By: #### C BC ####[facility] [address] [place], [place] [address]Dr. Rigo Sands IG # 0.04 10e3/ul Critically high 0.00-0.03 The [facility] Comment on above: Performed By: #### C BC ####[facility] [address] [id number]. Rigo Sands IG % 0.5 % Normal 0.0-0.5 The [facility] Comment on above: Performed By: #### C BC ####[facility] [address] [id number]. Rigo Sands LYMPH # 1.9 103/ul Normal 1.2-3.8 The [facility] Comment on above: Performed By: #### C BC ####[facility] [address] [id number]. Rigo Sands Lymphocytes/100 WBC (Bld) 25.5 % Normal 20.5-60.0 The [facility] Comment on above: Performed By: #### C BC ####[facility] [address] [address]Dr. Rigo Sands MANUAL DIFF REQ NO Normal The [facility] Comment on above: Performed By: #### C BC ####[facility] [address] [address]Dr. Rigo Wicho MCH (RBC) [Entitic mass] 30.4 pg Normal 26.7-34.0 The [facility] Comment on above: Performed By: #### C BC ####[facility] [address] [address]Dr. Rigo Wicho MCHC (RBC) [Mass/Vol] 32.9 g/dL Normal 29.9-35.2 The [facility] Comment on above: Performed By: #### C BC ####[facility] [address] [address]Dr. Hilarygilma Sands MCV (RBC) [Entitic vol] 92.5 fL Normal 81.0-99.0 [facility] Comment on above: Performed By: #### C BC ####[facility] [address] [address]Dr. Rigo Sands MONO # 0.5 103/ul Normal 0.3-0.8 The [facility] Comment on above: Performed By: #### C BC ####[facility] [address] [place], [place] [address]Dr. Rigo Sands Monocytes/100 WBC (Bld) 6.0 % Normal 1.7-12.0 [facility] Comment on above: Performed By: #### C BC ####[facility] [address] [address]Dr. Rigo Sands NEUT # 5.0 103/ul Normal 1.4-6.5 [facility] Comment on above: Performed By: #### C BC ####[facility] [address] [address]Dr. Rigo Sands Neutrophils/100 WBC (Bld) 66.9 % Normal 43.0-75.0 [facility] Comment on above: Performed By: #### C BC ####[facility] [address] [address]Dr. Rigo Sands Platelet mean volume (Bld) [Entitic vol] 12.7 fL Normal 9.5-13.5 [facility] Comment on above: Performed By: #### C BC ####[facility] [address] [place] [address]Dr. Rigo Sands PLT 196 103/ul Normal 150-450 [facility] Comment on above: Performed By: #### C BC ####[facility] [address] [place], [place] [address]Dr. Rigo Sands RBC 4.54 106/ul Normal 4.20-5.40 [facility] Comment on above: Performed By: #### C BC ####[facility] [address] [place], [place] [address]Dr. Rigo Sands WBC 7.5 103/ul Normal 4.0-11.0 [facility] Comment on above: Performed By: #### C BC ####[facility] [address] [address]Dr. Rigo Sands IRONon 04-04-2022 Iron [Mass/Vol] 65.0 ug/dL Normal 50.0-170.0 The [facility] Comment on above: Performed By: #### V ITAD, IRON, VITB12 ####[facility] [address] [address]Dr. Rigo Sands VITAMIN B12on 04-04-2022 Cobalamin (Vitamin B12) [Mass/Vol] 369.0 pg/mL Normal 193.0-986.0 The [facility] Comment on above: Performed By: #### V ITAD, IRON, VITB12 ####[facility] [address] [address]Dr. Rigo Sands VITAMIN D 25 OHon 04-04-2022 VIT D 25-OH 59.2 ng/mL Normal [facility] Comment on above: Performed By: #### V ITAD, IRON, VITB12 ####[facility] [address] [place], [place] [address]Dr. Rigo Sands VIT D RANGES SEE BELOW Normal [facility] Comment on above: Result Comment: <20 ng/mL Vit D deficient 20 - <30 ng/mL Vit D insufficient 30 - 100 ng/mL Vit D sufficient >100 ng/mL Potential Toxicity Performed By: #### V ITAD, IRON, VITB12 ####[facility] [address] [place], [place] [address]Dr. Rigo Sands CBC AUTO DIFFon 02-15-2022 BASO # 0.0 103/ul Normal 0.0-0.1 [facility] Comment on above: Performed By: #### C BC #### [facility] [address] [place] [address] Dr. Rigo Sands Basophils/100 WBC (Bld) 0.2 % Normal 0.2-2.0 [facility] Comment on above: Performed By: #### C BC #### [facility] [address] [place] [address] Dr. Rigo Sands EO # 0.0 103/ul Normal 0.0-0.7 [facility] Comment on above: Performed By: #### C BC #### [facility] [address] [place] [address] Dr. Rigo Sands Eosinophils/100 WBC (Bld) 0.1 % Critically low 0.9-7.0 [facility] Comment on above: Performed By: #### C BC #### [facility] [address] [place] [address] Dr. Rigo Sands Erythrocyte distribution width (RBC) [Ratio] 13.5 % Normal 11.0-15.0 [facility] Comment on above: Performed By: #### C BC #### [facility] [address] [place] [address] Dr. Rigo Sands Hematocrit (Bld) [Volume fraction] 40.0 % Normal 36.0-48.0 [facility] Comment on above: Performed By: #### C BC #### [facility] [address] [place] [address] Dr. Rigo Sands Hemoglobin (Bld) [Mass/Vol] 13.4 g/dL Normal 12.0-16.0 [facility] Comment on above: Performed By: #### C BC #### [facility] [address] [place] [address] Dr. Rigo Sands IG # 0.04 10e3/ul Critically high 0.00-0.03 [facility] Comment on above: Performed By: #### C BC #### [facility] [address] [place] [address] Dr. Rigo Sands IG % 0.4 % Normal 0.0-0.5 [facility] Comment on above: Performed By: #### C BC #### [facility] [address] [place] [address] Dr. Rigo Sands LYMPH # 1.6 103/ul Normal 1.2-3.8 [facility] Comment on above: Performed By: #### C BC #### [facility] [address] [place] [address] Dr. Rigo Sands Lymphocytes/100 WBC (Bld) 17.2 % Critically low 20.5-60.0 [facility] Comment on above: Performed By: #### C BC #### [facility] [address] [place] [address] Dr. Rigo Sands MANUAL DIFF REQ NO Normal [facility] Comment on above: Performed By: #### C BC #### [facility] [address] [address] [address] Rigo Sands MCH (RBC) [Entitic mass] 30.7 pg Normal 26.7-34.0 [facility] Comment on above: Performed By: #### C BC #### [facility] [address] [place] [address] Dr. Rigo Sands MCHC (RBC) [Mass/Vol] 33.5 g/dL Normal 29.9-35.2 [facility] Comment on above: Performed By: #### C BC #### [facility] [address] [place] [address] Dr. Rigo Sands MCV (RBC) [Entitic vol] 91.5 fL Normal 81.0-99.0 [facility] Comment on above: Performed By: #### C BC #### [facility] [address] [place] [address] Dr. Rigo Sands MONO # 0.4 103/ul Normal 0.3-0.8 [facility] Comment on above: Performed By: #### C BC #### [facility] [address] [place] [address] Dr. Rigo Sands Monocytes/100 WBC (Bld) 4.0 % Normal 1.7-12.0 [facility] Comment on above: Performed By: #### C BC #### [facility] [address] [place] [address] Dr. Rigo Sands NEUT # 7.4 103/ul Critically high 1.4-6.5 [facility] Comment on above: Performed By: #### C BC #### [facility] [address] [place] [address] Dr. Rigo Sands Neutrophils/100 WBC (Bld) 78.1 % Critically high 43.0-75.0 [facility] Comment on above: Performed By: #### C BC #### [facility] [address] [place] [address] Dr. Rigo Sands Platelet mean volume (Bld) [Entitic vol] 12.3 fL Normal 9.5-13.5 [facility] Comment on above: Performed By: #### C BC #### [facility] [address] [address] [address] Rigo Sands PLT 199 103/ul Normal 150-450 [facility] Comment on above: Performed By: #### C BC #### [facility] [address] [address] [address] Rigo Sands RBC 4.37 106/ul Normal 4.20-5.40 [facility] Comment on above: Performed By: #### C BC #### [facility] [address] [address] [address] Rigo Sands WBC 9.5 103/ul Normal 4.0-11.0 [facility] Comment on above: Performed By: #### C BC #### [facility] [address] [place] [address] Dr. Rigo Sands ER URINE PROFILEon 2 Bilirubin Ql (U) Negative Normal NEGATIVE [facility] Comment on above: Performed By: #### E RUR ####[facility] [address] [place], [place] [address]Dr. Rigo Sands Clarity (U) CLEAR Normal CLEAR [facility] Comment on above: Performed By: #### E RUR ####[facility] [address] [place], [place] [address]Dr. Rigo Sands Color (U) LT. YELLOW Normal YELLOW [facility] Comment on above: Performed By: #### E RUR ####[facility] [address] [place], [place] [address]Dr. Rigo MINORD A micrscopic examination will be performed if indicated. Normal [facility] Comment on above: Performed By: #### E RUR ####[facility] [address] [address]Dr. Rigo Sands Glucose Ql (U) Negative Normal NEGATIVE [facility] Comment on above: Performed By: #### E RUR ####[facility] [address] [address]Dr. Rigo Sands Hemoglobin Ql (U) Negative Normal NEGATIVE [facility] Comment on above: Performed By: #### E RUR ####[facility] [address] [place] [address]Dr. Rigo Sands Ketones Ql (U) 15 mg/dl Abnormal NEGATIVE [facility] Comment on above: Performed By: #### E RUR ####[facility] [address] [place], [place] [address]Dr. Rigo Sands LEUKOCYTES Negative Normal NEGATIVE [facility] Comment on above: Performed By: #### E RUR ####[facility] [address] [place], [place] [address]Dr. Rigo Wicho Nitrite Ql (U) Negative Normal NEGATIVE [facility] Comment on above: Performed By: #### E RUR ####[facility] [address] [place], [place] [address]Dr. Rigo Sands pH (U) 6.0 [pH] Normal 5-9 [facility] Comment on above: Performed By: #### E RUR ####[facility] [address] [place], [place] [address]Dr. Rigo Sands SPEC GRAVITY <=1.005 Abnormal 1.005-<=1.0 25 [facility] Comment on above: Performed By: #### E RUR ####[facility] [address] [place], [place] [address]Dr. Rigo Sands UA PROTEIN Negative Normal NEGATIVE/ TRACE [facility] Comment on above: Performed By: #### E RUR ####[facility] [address] [place], [place] [address]Dr. Rigo Sands UR MICRO IND NOT INDICATED Normal [facility] Comment on above: Performed By: #### E RUR ####[facility] [address] [place], [place] [address]Dr. Rigo Sands Urobilinogen Qn (U) 0.2 {Keegan'U}/dL Normal 0.2 - 1. 0 [facility] Comment on above: Performed By: #### E RUR ####[facility] [address] [place], [place] [address]Dr. Rigo Sands LIPASEon 02-15-2022 Lipase [Catalytic activity/Vol] 50.0 U/L Critically low 73.0-393.0 [facility] Comment on above: Performed By: #### C MP, LIPA #### [facility] [address] [place] [address] Dr. Rigo Sands PROF 14(COMP METB)on 022 Albumin [Mass/Vol] 3.8 g/dL Normal 3.4-5.0 [facility] Comment on above: Performed By: #### C MP, LIPA #### [facility] [address] [place] [address] Dr. Rigo Sands Albumin/Globulin [Mass ratio] 1.2 {ratio} Normal [facility] Comment on above: Performed By: #### C ANALIA, LIPA #### [facility] [address] [place] [address] Dr. Rigo Sands ALP [Catalytic activity/Vol] 60 U/L Normal 46-116 [facility] Comment on above: Performed By: #### C ANALIA, LIPA #### [facility] [address] [place] [address] Dr. Rigo Sands ALT [Catalytic activity/Vol] 36 U/L Normal 14-59 [facility] Comment on above: Performed By: #### C ANALIA, LIPA #### [facility] [address] [place] [address] Dr. Rigo Sands Anion gap [Moles/Vol] 12.0 mmol/L Normal [facility] Comment on above: Performed By: #### C MP, LIPA #### [facility] [address] [place] [address] Dr. Rigo Sands AST [Catalytic activity/Vol] 16 U/L Normal 15-37 [facility] Comment on above: Performed By: #### C MP, LIPA #### [facility] [address] [place] [address] Dr. Rigo Sands Bilirubin [Mass/Vol] 0.3 mg/dL Normal 0.2-1.0 [facility] Comment on above: Performed By: #### C MP, LIPA #### [facility] [address] [address] [address] Rigo Sands Calcium [Mass/Vol] 8.8 mg/dL Normal 8.5-10.1 [facility] Comment on above: Performed By: #### C MP, LIPA #### [facility] [address] [place] [address] Dr. Rigo Sands Chloride [Moles/Vol] 104 mmol/L Normal 98-107 [facility] Comment on above: Performed By: #### C MP, LIPA #### [facility] [address] [place] [address] Dr. Rigo Sands CO2 [Moles/Vol] 27.6 mmol/L Normal 21.0-32.0 [facility] Comment on above: Performed By: #### C MP, LIPA #### [facility] [address] [place] [address] Dr. Rigo Sands Creatinine [Mass/Vol] 0.78 mg/dL Normal 0.55-1.02 [facility] Comment on above: Performed By: #### C MP, LIPA #### [facility] [address] [place] [address] Dr. Rigo Sands EGFR-AF VINCENTIAN >60 Normal >=60 [facility] Comment on above: Performed By: #### C MP, LIPA #### [facility] [address] [place] [address] Dr. Rigo Sands EGFR-NON AF VINCENTIAN >60 Normal >=60 [facility] Comment on above: Performed By: #### C MP, LIPA #### [facility] [address] [place] [address] Dr. Rigo Sands Globulin (S) [Mass/Vol] 3.2 g/dL Normal [facility] Comment on above: Performed By: #### C MP, LIPA #### [facility] [address] [place] [address] Dr. Rigo Sands Glucose [Mass/Vol] 83 mg/dL Normal 74-106 [facility] Comment on above: Performed By: #### C MP, LIPA #### [facility] [address] [place] [address] Dr. Rigo Sands Potassium [Moles/Vol] 3.6 mmol/L Normal 3.5-5.1 [facility] Comment on above: Performed By: #### C MP, LIPA #### [facility] [address] [address] [address] Rigo Sands Protein [Mass/Vol] 7.0 g/dL Normal 6.4-8.2 [facility] Comment on above: Performed By: #### C MP, LIPA #### [facility] [address] [address] [address] Rigo Sands Sodium [Moles/Vol] 140 mmol/L Normal 136-145 [facility] Comment on above: Performed By: #### C MP, LIPA #### [facility] [address] [address] [address] iRgo Sands Urea nitrogen [Mass/Vol] 16.0 mg/dL Normal 7.0-18.0 [facility] Comment on above: Performed By: #### C MP, LIPA #### [facility] [address] [address] [address] Rigo Sands Urea nitrogen/Creatinine [Mass ratio] 20.5 mg/mg Normal [facility] Comment on above: Performed By: #### C MP, LIPA #### [facility] [address] [address] [address] Rigo Sands PROTIMEon 02-15-2022 INR Coag (PPP) [Relative time] 1.03 {INR} Normal [facility] Comment on above: Performed By: #### P TT, PT ####[facility] [address] [address]Dr. Rigo Sands INR GUIDELINES SEE BELOW Normal The [facility] Comment on above: Result Comment: SERINA RED INR: 2.0 - 3.0 CONDITIONS NOT LISTED BELOW 2.5 - 3.5 FOR PROSTHETIC HEART VALVE REPLACEMENT 2.5 - 3.5 RECURRENT THROMBOSIS Performed By: #### P TT, PT ####[facility] [address] [address]Dr. Rigo Sands PT Coag (PPP) [Time] 11.1 s Normal 9.0-11.6 [facility] Comment on above: Performed By: #### P TT, PT ####[facility] [address] [place], [place] [address]Xe. Rigo Sands PTTon 02-15-2022 aPTT Coag (Bld) [Time] 26.8 s Normal 22.3-36.2 Th [facility] Comment on above: Performed By: #### P TT, PT ####[facility] [address] [place], [place] [address]Os. Rigo Sands XR ABD FLAT UP_PA Jeannette 02-15 XR ABD FLAT UP_PA CH EXAMINATION: XR ABD FLAT UP_PA CH HISTORY: Hematemesis COMPARISON: No relevant comparison available. FINDINGS: LUNGS: No infiltrate, pneumothorax, or pleural effusion. MEDIASTINUM: No abnormal widening. BOWEL GAS PATTERN: Non-obstructed. FREE AIR: None. CALCIFICATIONS: None significant. BONES: No fracture or visible bone lesion. OTHER: Negative. IMPRESSION: Clear lungs Nonobstructive bowel gas pattern Electronically authenticated by: MAURO POSADAS Date: 2022-02-15 14:44 Normal [facility] XR hand LT min 3V*on 022 XR hand LT min 3V* [facility] [employer] Other XR hand LT min 3V* [facility] [employer] Other XR hand LT min 3V* [address] [place] [address] [employer] Other XR hand LT min 3V* [place] [address] [employer] Other XR hand LT min 3V* XRay Report [employer] Other XR hand LT min 3V* Signed [employer] Other XR hand LT min 3V* Patient: Torrey Antony MR#: [id number] [employer] [facility] [employer] Other XR hand LT min 3V* [id number] [employer] [facility] [employer] Other XR hand LT min 3V* : 1990 Acct:[id number] [employer] Other XR hand LT min 3V* Age/Sex: 30 / F ADM Date: 10/18/21 [employer] Other XR hand LT min 3V* Loc: XDUCLY Room: pe: REG CLI [employer] Other XR hand LT min 3V* Attending Dr: Tiki GODDARD [employer] Other XR hand LT min 3V* Ordering Provider: NITZA Edgar [employer] Other XR hand LT min 3V* Date of Service: 10/18/21 [employer] Other XR hand LT min 3V* XR/XR hand LT min 3V*: Left hand pain [employer] Other XR hand LT min 3V* Copies to: NITZA Edgar [employer] Other XR hand LT min 3V* 4 viewsleft hand denise in film [employer] Other XR hand LT min 3V* COMPARISON:None [employer] Other XR hand LT min 3V* HISTORY:Left hand injury. [employer] Other XR hand LT min 3V* No fracture, dislocation or focal soft tissue abnormality seen. [employer] Other XR hand LT min 3V* XR/XR hand LT min 3V* [employer] Other XR hand LT min 3V* IMPRESSION:No acute findings [employer] Other XR hand LT min 3V* Impression dictated by: Elton Rodrigez M.D.10/18/2021 11:50 AM [employer] Other XR hand LT min 3V* Dictation Location: RADIO-PC-13 [employer] Other XR hand LT min 3V* Transcribed By: PWS 10/18/21 1150 [employer] Other XR hand LT min 3V* Dictated By: Elton Rodrigez DO 10/18/21 1149 [employer] Other XR hand LT min 3V* Signed By: [employer] Other XR hand LT min 3V* 10/18/[address] [facility] [employer] Other Phone Msgoliseth 04-22-2021 Phone Msg Entered by NAZ LONG MD, FACOG on April 22, 2021 15:42:24 EDT From: NAZ LONG MD, FACOG To: [facility]/pharmacy #[id number] Sent: 04/22/2021 15:42:23 EDT Subject: Medication Management Not Approved: Patient should contact Prescriber first ibuprofen = Motrin, Advil (IBUPROFEN 600 MG TABLET) TAKE 1 TABLET BY MOUTH EVERY 6 HOURS Qty: 40 tabs Days Supply: 10 Refills: 0 Substitutions Allowed Route To Pharmacy - [facility]/pharmacy #[id number] From: [id number] To: NAZ LONG MD Sent: April 22, 2021 3:29:46 PM EDT Subject: Medication Management Due: April 08, 2021 4:20:54 PM EDT On Hold Pending Signature Dispensed Drug: ibuprofen = Motrin, Advil (ibuprofen 600 mg oral tablet), TAKE 1 TABLET BY MOUTH EVERY 6 HOURS Quantity: 40 tabs Days Supply: 10 Refills: 0 Substitutions Allowed Notes from Pharmacy: Normal [facility] Operative Reporton Operative Report MR#: [id number] [facility] Pt. Name: Torrey Antony Room #: 0C Discharge Date: Birthdate: 1990 OPERATIVE REPORT DATE OF SURGERY: 11/30/2020 SURGEON: Frances Nicole M.D. DOG HANDLER OR TRAINER: Maribel Vazquez MD PREAMBLE: A 29-year-old female has had refractory left forearm pain. Despite undergoing exhaustive course of occupational therapy and rehabilitation. If the pain is coming from her repetitive loads sustained in the work environment. Preoperative assessment was consistent with left radial tunnel syndrome given localized tenderness to the radial tunnel region. Informed consent was obtained to proceed with a left radial nerve decompression. PREOPERATIVE DIAGNOSIS: Left radial tunnel syndrome. POSTOPERATIVE DIAGNOSIS: Left radial tunnel syndrome. OPERATIVE PROCEDURE: Decompression left radial nerve. INTRAOPERATIVE FINDINGS: Noted was that the nerve appeared grossly normal. There was one slight area just distal to the arcade of Frohse where there appeared to be some compression of the nerve. The overlying fascia was significantly thickened and fairly constrictive. DESCRIPTION OF PROCEDURE: Under regional anesthetic, the patient's left upper extremity was prepped and draped for the proposed procedure. Tourniquet applied to left proximal humerus, was inflated to 250 mmHg following exsanguination of the limb by application of an Esmarch bandage. A longitudinal incision was made between the interval of the brachioradialis and ECRL. Dissection performed under 3.5 times loupe magnification. Once the subcutaneous tissues were bluntly dissected, the posterior cutaneous nerve was identified and preserved. This aided in identification of the interval as well as the different fascial coloration. The fascia was incised and the interval was easily delineated between the ECRL and brachioradialis. The blunt dissection was used to retract the muscle groups, whereby the superficial radial nerve was identified and traced. It was traced both proximally and distally. The nerve to the ECRB was also identified and traced distally. Overlying fascia of the ECRB was then incised allowing identification of the posterior interosseous nerve. This was traced and noted its pathway just deep to the arcade of Frohse. This was incised and a complete decompression was performed. Hemostasis was obtained with the use of bipolar cautery. Complete decompression of the posterior interosseous nerve was performed both proximally and distally releasing the overlying fascia of the supinator. The nerve was then probed ensuring no remaining restricting fibers. Wound then irrigated with normal saline solution and wound closed subcutaneous tissue with 2-0 and 3-0 Vicryl and closure of skin with a 4-0 Biosyn established in a running subcuticular fashion. Sterile bulky hand dressing applied extending to the elbow. There were no complications. The patient was transferred to recovery room in stable condition. Electronically Signed by: Frances Nicole M.D. 12/02/2020 07:05 A Frances Nicole M.D. Date Dict: 11/30/2020/09:48 Mathew/Frances Nicole M.D. Date Trans: 11/30/2020 10:59 A/simran [id number] cc: Miriam Reeves, MIXED LIVESTOCK FARMER [address] [id number] Normal [facility] POC GLUCOSE LABon 11-30-2020 Glucose [Mass/Vol] 75 mg/dL Normal 70-100 [facility] Comment on above: Performed By: #### 8 [id number] #### [facility] [address] [place] [address], [facility] [[email or web address] POC URINE PREGNANCYon 2020 Beta HCG ( test) Ql (U) Negative Normal NEGATIVE [facility] Comment on above: Result Comment: Perf ormed in PACU Performed By: #### 8 [id number] #### [facility] [address] [place] [address], [facility] [[email or web address]] Phone Msgon 11-21-2020 Phone Msg - From: NAZ LONG MD, FACOG To: TORREY ANTONY Sent: 11/20/2020 22:44:14 EDT Subject: Normal pap Torrey, Your pap smear was normal. Naz Long MD Normal [facility] THIN PREP IMAGE SEND OUTon 0 11-20-2020 THIN PREP IMAGE SEND OUT See Report Normal [facility] Comment on above: Performed By: #### C [id number] #### [facility] [address] [place] [address] Naturalization Examiner: Yobany Diaz MD Operative Reporton Operative Report Indication for Surge ry Desires sterilization Preoperative Diagnosis Desires sterilization Postoperative Diagnosis Desires sterilization Operation Laparoscopic bilateral salpingectomy for sterilization Surgeon(s) Mercedes Anesthesia GET Estimated Blood Loss <5 mL Urine Output 50 mL Findings Normal uterus and left ovary Specimen(s) Bilateral fallopian tubes Complications none Technique Torrey was taken to the operating room where general endotracheal anesthesia was obtained without difficulty. She was placed in the dorsal lithotomy position. A speculum was placed in her vagina. The anterior lip of the cervix was grasped with a single-toothed tenaculum. The cervix was dilated and a uterine manipulator was placed in the uterus. I changed gloves. Attention was turned to her abdomen where a 5 mm incision was made in the umbilicus with a scalpel. A 5 mm trocar was placed under direct visualization. CO2 gas was used to create a pneumoperitoneum. We inspected the pelvis. The left ovary and fallopian tubes appeared normal. I placed 2 additional ports in the left lower quadrant under direct visualization. I used the Campbell-Geck graspers to grasp the left fallopian tube and I came through the mesosalpinx with the harmonic scalpel. The tube was cut near the cornua and removed through the 5 mm port. The same was done on the right side without incident. Her right ovary was noted to be surgically absent. There was no active bleeding. The procedure was terminated. All instruments were removed from the pelvis. Sponge, lap and needle counts were correct. The 5 mm ports were reapproximated with a 4-0 vicryl and surgical glue was placed over all incisions. She was awoken from anesthesia and taken to the recovery room in stable and satisfactory condition. Sponge, lap and needle counts were correct at the end of the procedure. Normal [facility] Amb Office-Progress Notes-Pr ovideron 11-08-2020 Amb Office-Progress Notes-Provider Assessment/Plan 1. 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 She is still a bit depressed but better than it was last visit. Anjana is helping with bleeding profile. Discussed plan for tubal on the . Physical Exam Vitals & Measurements BP: 120/80 HT: 168 cm WT: 93.8 kg BMI: 33.23 Depression Screening Scores Initial Depression Screen Score: 0 (11/08/20 11:47:00) Fall Risk Assessment Is the patient ambulatory (mobile): Yes (11/08/20 11:47:00) Have you had a fall within the past: No (11/08/20 11:47:00) Have you had 2 or more falls in the past: No (11/08/20 11:47:00) The vital signs were reviewed and are normal. General appearance: well developed and well nourished Lungs: Normal respiratory effort, clear to auscultation Heart: regular, rate and rhythm Extremities: No edema or clubbing Psychiatric: Mood normal: yes Affect normal: yes Insight and judgement normal: yes COAL CONVEYOR OPERATOR: External genitalia: normal, no lesions Urethra: normal meatus Vagina: normal no lesions, no discharge, vault normal Cervix: no lesions, no cervical motion tenderness, normal appearance Uterus: normal mobility, non-tender, normal size, shape and consistency Adnexa: normal Cul de sac: normal Perineum: no hemorrhoids, masses or warts noted COAL CONVEYOR OPERATOR Additional Details Menstrual History Menstrual StatusProphylaxis Problem List/Past Medical History Ongoing Anxiety BMI 33.0-33.9,adult Gastritis Irregular periods IUD (intrauterine device) in place Migraine with aura Historical Procedure/Surgical History Anjana IUD Lot # [id number] (07/29/2020) LAPAROSCOPIC RIGHT OOPHERECTOMY (12/24/2018) D&C/Nexplanon removal () D&C, retained placenta (2014) Pap negative (06/16/2014) Medications ibuprofen 600 mg oral tablet, 600 mg= 1 tabs, ORAL, [id number] Anjana 13.5 mg intrauterine device, 13.5 mg= 1 EA, Intrauteral, ONCE SUMAtriptan 100 mg oral tablet Allergies penicillin (rxn approx 1-2 yrs ago, hives) Social History Alcohol - Denies Alcohol Use, 11/27/2018 Sexual Sexually active: Yes. Other contraceptive use: Anjana IUD inserted 07/29/2020., 07/29/2020 Substance Abuse - Denies Substance Abuse, 11/27/2018 Tobacco Never (less than 100 in lifetime) Tobacco Use:., 11/28/2018 Family History Hypertension: Father. Ovarian cancer..: Grandmother (Dx about 70). Stroke..: Grandfather and Grandmother. Normal [facility] Ambulatory Clinical Summaryo n 11-08-2020 Ambulatory Clinical Summary TORREY ANTONY :1990 Visit Date:11/08/2020 Ambulatory Visit Instructions Your Care Team Attending Physician - NAZ LONG MD, FACOG Primary Care Physician - NO FAMILY PHYSICIAN, 837 Procedures Performed Anjana IUD Lot # [id number] (07/29/2020) LAPAROSCOPIC RIGHT OOPHERECTOMY (12/24/2018) D&C/Nexplanon removal () D&C, retained placenta (2014) Pap negative (06/16/2014) Discharge Vitals Blood Pressure 120/80 Height 168 cm Weight 93.8 kg BMI 33.23 Systolic Blood Pressure: 120 mmHg (11/08/20 11:47:00) Diastolic Blood Pressure: 80 mmHg (11/08/20 11:47:00) Mean Arterial Pressure: 93 mmHg (11/08/20 11:47:00) Height/Length Measured: 168 cm (11/08/20 11:47:00) Weight Measured: 93.8 kg (11/08/20 11:47:00) Body Mass Index Measured: 33.23 kg/m2 (11/08/20 11:47:00) Ht/Wt Measurement Refused by Patient?2: No (11/08/20 11:47:00) What to do next Scheduled Follow-Up Appointments Sunday 7:30 AM EDT With: NAZ LONG MD, FACOG Where: [facility] 2020 8:00 AM EDT With: NAZ LONG MD, FACOG Where: [facility] Medications What How Much When Instructions Changed SUMAtriptan (SUMAtriptan 100 mg oral tablet) Unchanged ibuprofen = Motrin, Advil (ibuprofen 600 mg oral tablet) 1 Tabs Oral EVERY SIX HOURS Unchanged levonorgestrel (Anjana 13.5 mg intrauterine device) 1 Each Intrauteral ONCE Allergies penicillin (rxn approx 1-2 yrs ago, hives) Problems Ongoing - Any problem that you are currently receiving treatment for. Anxiety BMI 33.0-33.9,adult Gastritis Irregular periods IUD (intrauterine device) in place Migraine with aura Historical - Any problem that you are no longer receiving treatment for. Common Emergency Awareness Tips IS IT A STROKE? Act FAST and Check for these signs: FACE Does the face look uneven? ARM Does one arm drift down? SPEECH Does their speech sound strange? TIME Call at any sign of stroke Heart Attack Signs Chest discomfort: Most heart attacks involve discomfort in the center of the chest and lasts more than a few minutes, or goes away and comes back. It can feel like uncomfortable pressure, squeezing, fullness or pain. Discomfort in upper body: Symptoms can include pain or discomfort in one or both arms, back, neck, jaw or stomach. Shortness of breath: With or without discomfort. Other signs: Breaking out in a cold sweat, nausea, or lightheaded. Remember, MINUTES DO MATTER. If you experience any of these heart attack warning signs, call to get immediate medical attention! Normal [facility] Phone Msgon 09-15-2020 Phone Msg Entered by Luli Ribeiro on September 15, 2020 11:07:26 EDT I called and left her a voice mail to call and scheduled her surgery. Please find the order information listed below. Ordered By:NAZ LONG MD, FACOG REGIMEN_DETAIL: Requested Start Date/Time: 09/14/2020 11:37:00 EDT Intent of therapy: From: Luli Ribeiro ([facility] [place]) To: NAZ LONG MD; Sent: 09/15/2020 16:07:14 EDT Subject: RE: GARRETT Schedule Surgery called back and scheduled her, made her post op appt. she is scheduled for 11/19/2020 scheduled her, made her post op appt. she is scheduled for 11/19/2020 scanned in chart Normal [facility] Phone Msg - From: Luli Ribeiro ([facility] [place]) To: NAZ LONG MD; Sent: 09/15/2020 11:06:57 EDT Subject: RE: GARRETT Schedule Surgery Called and left her a voice mail to call and schedule her surgery, I am looking at 10/15/2020 at the [facility] [place]. Please find the order information listed below. Ordered By:NAZ LONG MD, FACOG REGIMEN_DETAIL: Requested Start Date/Time: 09/14/2020 11:37:00 EDT Intent of therapy: Normal [facility] Ambulatory Clinical Summaryo n 09-14-2020 Ambulatory Clinical Summary TORREY ANTONY :1990 Visit Date:09/14/2020 Ambulatory Visit Instructions Your Diagnosis Mastalgia Your Care Team Attending Physician - NAZ LONG MD, FACOG Primary Care Physician - NO FAMILY PHYSICIAN, 837 Procedures Performed Anjana IUD Lot # [id number] (07/29/2020) LAPAROSCOPIC RIGHT OOPHERECTOMY (12/24/2018) Laparoscopy, surgical; with removal of adnexal structures (partial or total oophorectomy and/or salpingectomy) (12/24/2018) D&C/Nexplanon removal () D&C, retained placenta (2014) Pap negative (06/16/2014) Discharge Vitals Blood Pressure 116/86 Systolic Blood Pressure: 116 mmHg (09/14/20 11:05:00) Diastolic Blood Pressure: 86 mmHg (09/14/20 11:05:00) Height/Length Measured: 168 cm (09/14/20 11:05:00) Weight Measured: 92.6 kg (09/14/20 11:05:00) Body Mass Index Measured: 32.81 kg/m2 (09/14/20 11:05:00) What to do next Scheduled Follow-Up Appointments Sunday 1:30 PM EDT With: MERCEDES HOPKINS FACOGNAZ Where: [facility] You Need to Schedule the Following Appointments US BREAST RIGHT COMPLETE, 09/14/2020, Routine, PAIN, Cart, Isolation Precautions: NONE, Mastalgia Medications What How Much When Instructions Unchanged ibuprofen = Motrin, Advil (ibuprofen 600 mg oral tablet) 1 Tabs Oral EVERY SIX HOURS Unchanged levonorgestrel (Anjana 13.5 mg intrauterine device) 1 Each Intrauteral ONCE Unchanged SUMAtriptan (SUMAtriptan 50 mg oral tablet) 1 Tabs Oral DAILY as needed for as needed for migraine headache What How Much When Comments Stop Taking buPROPion (buPROPion 150 mg/ 24 hours (XL) oral tablet, extended release) Stop Taking busPIRone = BuSpar (busPIRone 10 mg oral tablet) Stop Taking miSOPROStol (Cytotec 200 mcg oral tablet) See instructions Take one tablet the night before procedure and one tablet the morning of procedure Allergies penicillin (rxn approx 1-2 yrs ago, hives) Problems Ongoing - Any problem that you are currently receiving treatment for. Anxiety BMI 32.0-32.9,adult Gastritis Irregular periods IUD (intrauterine device) in place Migraine with aura Historical - Any problem that you are no longer receiving treatment for. Common Emergency Awareness Tips IS IT A STROKE? Act FAST and Check for these signs: FACE Does the face look uneven? ARM Does one arm drift down? SPEECH Does their speech sound strange? TIME Call at any sign of stroke Heart Attack Signs Chest discomfort: Most heart attacks involve discomfort in the center of the chest and lasts more than a few minutes, or goes away and comes back. It can feel like uncomfortable pressure, squeezing, fullness or pain. Discomfort in upper body: Symptoms can include pain or discomfort in one or both arms, back, neck, jaw or stomach. Shortness of breath: With or without discomfort. Other signs: Breaking out in a cold sweat, nausea, or lightheaded. Remember, MINUTES DO MATTER. If you experience any of these heart attack warning signs, call to get immediate medical attention! Normal [facility] Phone Msgon 09-14-2020 Phone Msg - From: Cat Diaz To: Luli Ribeiro; Sent: 09/14/2020 12:57:29 EDT Subject: Surgery Pt needs scheduled for a tubal ligation. Forms have been scanned into documents - consent. Normal [facility] Ambulatory Clinical Summaryo n 07-29-2020 Ambulatory Clinical Summary TORREY ANTONY :1990 Visit Date:07/29/2020 Ambulatory Visit Instructions Your Diagnosis Pre-procedure lab exam Encounter for IUD removal and reinsertion Tests Performed AMB Urine POC 86432 Your Care Team Attending Physician - MERCEDES HOPKINS FACOG, NAZ Primary Care Physician - NO FAMILY PHYSICIAN, 837 Procedures Performed Anjana IUD Lot # [id number] (07/29/2020) Kyleena Iud removed 07/29/20 (12/24/2018) LAPAROSCOPIC RIGHT OOPHERECTOMY (12/24/2018) Laparoscopy, surgical; with removal of adnexal structures (partial or total oophorectomy and/or salpingectomy) (12/24/2018) D&C/Nexplanon removal () D&C, retained placenta (2014) Pap negative (06/16/2014) Discharge Vitals Blood Pressure 104/76 Systolic Blood Pressure: 104 mmHg (07/29/20 11:16:00) Diastolic Blood Pressure: 76 mmHg (07/29/20 11:16:00) Height/Length Measured: 168 cm (07/29/20 11:16:00) Weight Measured: 95.9 kg (07/29/20 11:16:00) Body Mass Index Measured: 33.98 kg/m2 (07/29/20 11:16:00) Medications What How Much When Instructions Unchanged buPROPion (buPROPion 150 mg/ 24 hours (XL) oral tablet, extended release) Unchanged busPIRone = BuSpar (busPIRone 10 mg oral tablet) Unchanged ibuprofen = Motrin, Advil (ibuprofen 600 mg oral tablet) 1 Tabs Oral EVERY SIX HOURS Unchanged miSOPROStol (Cytotec 200 mcg oral tablet) See instructions Take one tablet the night before procedure and one tablet the morning of procedure Unchanged SUMAtriptan (SUMAtriptan 50 mg oral tablet) 1 Tabs Oral DAILY as needed for as needed for migraine headache Test Results AMB Urine POC 24120 (07/29/2020) U beta hCG Ql - Negative Medications and Immunizations Administered Given Anjana (levonorgestrel) 13.5 mg intrauteral device, 1 g/day, Intrauteral. For: Encounter for IUD removal and reinsertion Allergies penicillin (rxn approx 1-2 yrs ago, hives) Problems Ongoing - Any problem that you are currently receiving treatment for. Anxiety BMI 33.0-33.9,adult Gastritis Irregular periods IUD (intrauterine device) in place Migraine with aura Historical - Any problem that you are no longer receiving treatment for. Common Emergency Awareness Tips IS IT A STROKE? Act FAST and Check for these signs: FACE Does the face look uneven? ARM Does one arm drift down? SPEECH Does their speech sound strange? TIME Call at any sign of stroke Heart Attack Signs Chest discomfort: Most heart attacks involve discomfort in the center of the chest and lasts more than a few minutes, or goes away and comes back. It can feel like uncomfortable pressure, squeezing, fullness or pain. Discomfort in upper body: Symptoms can include pain or discomfort in one or both arms, back, neck, jaw or stomach. Shortness of breath: With or without discomfort. Other signs: Breaking out in a cold sweat, nausea, or lightheaded. Remember, MINUTES DO MATTER. If you experience any of these heart attack warning signs, call to get immediate medical attention! Normal [facility] Phone Msgon 07-14-2020 Phone Msg - From: Gay Lam To: Kathleen Lopez RN; Sent: 07/13/2020 15:20:51 EST Subject: test results Patient is calling and would like to have the results from her genetic testing. If you can please call her. [phone] From: Kathleen Lopez RN To: NAZ LONG MD; Sent: 07/13/2020 15:29:49 EST Subject: FW: test results I spoke with her about her results. Normal [facility] C GENITALon 06-26-2020 C GENITAL [facility] [address] [place] [address] Name: TORREY ANTONY : 1990 Admitting Provider: Gender: Female [facility] [phone] Number: Location: [facility]. Admit 06/22/2020 Date: Discharge 06/22/2020 Date: Microbiology PROCEDURE: C GENITAL [] SOURCE: VAGINAL BODY SITE: COLLECTED DATE/TIME: 06/22/2020 12:20 EST RECEIVED DATE/TIME: 06/23/2020 07:14 EST START DATE/TIME: 06/23/2020 07:14 EST FREE TEXT SOURCE: ORDERING PHYSICIAN: NAZ LONG MD, FACOG FINAL REPORTS Final Report [] Verified Date/Time: 06/26/2020 10:59 EST Normal Vaginal Darya isolated. STAINS GS [] Verified Date/Time: 06/23/2020 08:45 EST Few epithelial cells Moderate Gram Positive Rods. Gram Stain consistent with normal vaginal secretions. ____ L=Low, H= High, *= Abnormal, C=Critical, f=Footnote, c=Corrected, i=Interp Data Name: TORREY ANTONY Print Date/ 06/28/2020 08:29 EST Time: Normal [facility] Comment on above: Performed By: #### 1 [id number] #### [facility] [address] [place] [address] Naturalization Examiner: Yobany Diaz MD GP CHLAMon 06-23-2020 Genprobe Chlamydia Negative Normal [facility] Comment on above: Order Comment: Order ed on Fin# [id number] Result Comment: This Chlamydia assay is being performed via a second generation NAAT that utilizes target capture, photocopying equipment mechanic mediated amplification and dual kenetic assay technologies. Performed By: #### C [id number] ####[facility] [id number] [place] [address] Medical Director: Yobany Diaz MD GP GCon 06-23-2020 Genprobe GC Negative [facility] Comment on above: Order Comment: Order ed on Fin# [id number] Result Comment: This Gonorrhoea assay is being performed via a second generation NAAT that utilizes target capture, photocopying equipment mechanic mediated amplification and dual kenetic assay technologies. Performed By: #### C [id number], [id number] ####[facility] [id number] [place] [address] Medical Director: Yobany Diaz MD GP Trichomonason 06-23-2020 GP Trichomonas Negative [facility] Comment on above: Order Comment: Order ed on Fin# [id number] Result Comment: This Trichomonas assay is being performed via a second generation NAAT that utilizes target capture, photocopying equipment mechanic mediated amplification and dual kenetic assay technologies. Performed By: #### C [id number], [id number], [id number] ####[facility] [id number] [place] [address] Medical Director: Yobany Diaz MD HEP B AGon 06-23-2020 Hepatitis B Surface Antigen Non-Reactive Normal [facility] Comment on above: Order Comment: Order ed on Fin# [id number] Result Comment: High levels of serum biotin may interfere with this test. Performed By: #### 1 [id number], [id number] #### [facility] [address] [place] [address] Naturalization Examiner: Yobany Diaz MD HEP C ABon 06-23-2020 Hepatitis C Antibody Non-Reactive Normal [facility] Comment on above: Order Comment: Order ed on Fin# [id number] Performed By: #### 1 [id number], [id number] #### [facility] [address] [place] [address] Naturalization Examiner: Yobany Diaz MD HIV 1O2on 06-23-2020 HIV Panel 1&2 Non-Reactive Normal [facility] Comment on above: Order Comment: Order ed on Fin# [id number] Performed By: #### 1 [id number] #### [facility] [address] [place] [address] Naturalization Examiner: Yobany Diaz MD RPRon 06-23-2020 Reagin Ab RPR Ql (S) Non-Reactive Normal [facility] Comment on above: Order Comment: Order ed on Fin# [id number] Performed By: #### 1 [id number] #### [facility] [address] [place] [address] Naturalization Examiner: Yobany Diaz MD Ambulatory Clinical Summaryo n 06-22-2020 Ambulatory Clinical Summary TORREY ANTONY :1990 Visit Date:06/22/2020 Ambulatory Visit Instructions Your Diagnosis Exposure to sexually transmitted disease (STD) Family history of ovarian cancer Ovarian cyst Pain due to intrauterine contraceptive device (IUD) Tests Performed US TV ECHO NON OB OFFICE READ -- Results Pending -- You will be contacted within 72 hours with your results. Your Care Team Attending Physician - MERCEDES HOPKINS FACOG, NAZ Primary Care Physician - NO FAMILY PHYSICIAN, 837 Procedures Performed Kyleena Iud (12/24/2018) LAPAROSCOPIC RIGHT OOPHERECTOMY (12/24/2018) Laparoscopy, surgical; with removal of adnexal structures (partial or total oophorectomy and/or salpingectomy) (12/24/2018) D&C/Nexplanon removal () D&C, retained placenta (2014) Pap negative (06/16/2014) Discharge Vitals Blood Pressure 124/86 Systolic Blood Pressure: 124 mmHg (06/22/20 11:06:00) Diastolic Blood Pressure: 86 mmHg (06/22/20 11:06:00) Height/Length Measured: 168 cm (06/22/20 11:06:00) Weight Measured: 94.6 kg (06/22/20 11:06:00) Body Mass Index Measured: 33.52 kg/m2 (06/22/20 11:06:00) Last Menstrual Period: 06/19/20 (06/22/20 11:06:00) What to do next Scheduled Follow-Up Appointments 2020 11:20 AM EST Where: [facility] 2020 11:30 AM EST With: MERCEDES HOPKINS FACOG, NAZ Where: [facility] You Need to Schedule the Following Appointments C GENITAL, ROUTINE, 06/22/2020, Specimen type: Vaginal, Exposure to sexually transmitted disease (STD) GP CHLAM, ROUTINE, 06/22/2020, Specimen type: Cervical, Dx: Exposure to sexually transmitted disease (STD) GP GC, ROUTINE, 06/22/2020, Specimen type: Cervical, Dx: Exposure to sexually transmitted disease (STD) GP Trichomonas, ROUTINE, 06/22/2020, Specimen type: Cervical, Dx: Exposure to sexually transmitted disease (STD) HEP C AB, ROUTINE, 06/22/2020, Order for future visit, Dx: Exposure to sexually transmitted disease (STD) HEPATITIS B ANTIGEN, ROUTINE, 06/22/2020, Order for future visit, Dx: Exposure to sexually transmitted disease (STD) HIV 1O2, ROUTINE, 06/22/2020, Order for future visit, Dx: Exposure to sexually transmitted disease (STD) MISC SEND1, ROUTINE, 06/22/2020, Order for future visit, Dx: Family history of ovarian cancer RPR, ROUTINE, 06/22/2020, Order for future visit, Dx: Exposure to sexually transmitted disease (STD) Medications What How Much When Instructions Unchanged buPROPion (buPROPion 150 mg/ 24 hours (XL) oral tablet, extended release) Unchanged busPIRone = BuSpar (busPIRone 10 mg oral tablet) Unchanged ibuprofen = Motrin, Advil (ibuprofen 600 mg oral tablet) 1 Tabs Oral EVERY SIX HOURS Unchanged SUMAtriptan (SUMAtriptan 50 mg oral tablet) 1 Tabs Oral DAILY as needed for as needed for migraine headache What How Much When Comments Stop Taking fluconazole (Diflucan 150 mg oral tablet) 1 Tabs Oral ONCE Stop Taking nitrofurantoin (Macrobid 100 mg oral capsule) 1 Capsules Oral TWICE A DAY Duration: 7 Days Allergies penicillin (rxn approx 1-2 yrs ago, hives) Problems Ongoing - Any problem that you are currently receiving treatment for. BMI 33.0-33.9,adult Gastritis Irregular periods IUD (intrauterine device) in place Migraine with aura Historical - Any problem that you are no longer receiving treatment for. Common Emergency Awareness Tips IS IT A STROKE? Act FAST and Check for these signs: FACE Does the face look uneven? ARM Does one arm drift down? SPEECH Does their speech sound strange? TIME Call at any sign of stroke Heart Attack Signs Chest discomfort: Most heart attacks involve discomfort in the center of the chest and lasts more than a few minutes, or goes away and comes back. It can feel like uncomfortable pressure, squeezing, fullness or pain. Discomfort in upper body: Symptoms can include pain or discomfort in one or both arms, back, neck, jaw or stomach. Shortness of breath: With or without discomfort. Other signs: Breaking out in a cold sweat, nausea, or lightheaded. Remember, MINUTES DO MATTER. If you experience any of these heart attack warning signs, call to get immediate medical attention! Normal [facility] Phone Msgoliseth 06-22-2020 Phone Msg - From: Johnna Wilkinson To: Kathleen Lopez RN; Sent: 06/22/2020 12:48:37 EST Subject: Cytotec Patient is scheduled to have her Kyleena removed and Anjana inserted on 07/[address] Long. She does not get periods. Will you please call her in a prescription for the cytotec?? She is aware that she needs to pick it up when it is called in. Cytotec proposed Normal [facility] US TV ECHO NON OB OFFICE REVA Bustillo 06-22-2020 US TV ECHO NON OB OFFICE READ Indication: IUD break through bleeding and RLQ pain A transvaginal ultrasound was performed. The uterus was visualized. The uterus measured 8.8 by 4.2 by 5.4 cm. The uterus was anteverted. The myometrium was homogeneous. The endometrium was thin and measured 3.3 mm. The IUD was noted to be in the correct position and orientation. The right ovary was not visualized. The left ovary was normal in appearance and measured 2.5 by 1.8 by 1.6 cm. There were 2 simple follicles that measured 1.2 by 1.2 by 1.1 cm and 1.2 by 0.7 by 0.9 cm. There was no free fluid in the pelvis. Impression: Normal uterus with IUD noted in correct position and orientation. Normal left ovary. Normal [facility] Comment on above: Order Comment: Order ed on [facility]# [id number] Result Comment: Tech nologist: DM Dictated By: NAZ LONG MD, FACOG Signed By: NAZ LONG MD, FACOG Transcribed: 06.22.2020 14:34 Signed Out: 06/22/20 14:34:04 Operative Reporton 0 Operative Report MR#: [id number] [facility] Pt. Name: Torrey Antony Room #: 0C Discharge Date: Birthdate: 1990 OPERATIVE REPORT DATE OF SURGERY: 04/26/2020 SURGEON: Frances Nicole M.D. DOG HANDLER OR TRAINER: Maribel Vazquez MD PREOPERATIVE DIAGNOSIS: Left wrist intersection syndrome. POSTOPERATIVE DIAGNOSIS: Left wrist intersection syndrome. PROCEDURE PERFORMED: Left wrist tenosynovectomy x2. DRAINS: None. SPECIMENS: None. IMPLANTS: None. ANESTHESIA: Regional. COMPLICATIONS: None. INTRAOPERATIVE FINDINGS: The patient had no significant fascial band between the 1st and 2nd extensor compartments. She did have tenosynovitis involving the 2nd compartment. INDICATIONS FOR PROCEDURE: This is a 29-year-old female, previously suffered a blow to her left wrist while at work with acute onset of pain at that time. She tried and failed conservative treatment including therapy, bracing, injections. At that time operative intervention was discussed with the patient, with which she elected to proceed. PROCEDURE IN DETAIL: The patient was met in the preoperative holding area where the operative site was marked by the attending physician. Informed consent was reviewed and deemed appropriate. The patient was taken back to the operating room. She was placed supine on operating table. Regional anesthesia was induced. Preoperative antibiotics were administered. Tourniquet was placed in the left upper extremity. Left upper extremity was then sterilely prepped and draped in usual fashion. Operative time-out was performed. Esmarch was used to exsanguinate the limb and the tourniquet was inflated. We began by making a transverse incision of 5 cm proximal to the radial styloid. Blunt dissection was used down to the level of the extensor tendon sheath, which was then identified. Rent was made in the fascia and then this was sharply incised under direct visualization. The tendons of the 1st extensor compartment were identified and were retracted radially. The 2nd extensor compartment tendons were then identified. There was noted to be abundant tenosynovitis about these tendons, which was sharply removed. Upon further inspection of the 2 compartments, there was no significant fascial band divided in 2 compartments. We placed a hemostat both proximally and distally to ensure that there was no compression over the 2nd extensor compartment, which was found to be free. We then thoroughly irrigated the wound with normal saline. Wound was closed in layered fashion using 3-0 Vicryl followed by 4-0 Biosyn. Wound was dressed with Steri-Strips followed by 4x4s, Kerlix, and Andres bandage. Tourniquet was let down. The patient was placed into a sling, she was awoken from anesthesia and transferred to the PACU in stable condition. POSTOPERATIVE INSTRUCTIONS: She will be weightbearing as tolerated in the left upper extremity. She will follow up with Dr. Nicole in clinic in 10-[address] Nicole was present for all critical portions of the case and was otherwise immediately available to assist. Electronically Signed by: Frances Nicole M.D. 04/26/2020 02:21 P Frances Nicole M.D. I was present for the entire procedure. Date Dict: 04/26/2020/09:00 A/Maribel Vazquez MD Date Trans: 04/26/2020 11:31 A/simran [id number] cc: Miriam Reeves, MIXED LIVESTOCK FARMER [address] [facility] [address] Normal [facility] POC GLUCOSE LABon 04-26-2020 Glucose [Mass/Vol] 81 mg/dL Normal 70-100 [facility] Comment on above: Performed By: #### 8 [id number] #### [facility] [address] [facility] POC URINE PREGNANCYon 2019 Beta HCG ( test) Ql (U) Negative Normal NEGATIVE [facility] Comment on above: Result Comment: Perf ormed in PACU Performed By: #### 8 4140 #### [facility] [address] [facility]. [address] *SARS-CoV-2 COVID-19on 04-24 SARS-CoV-2 (COVID-19) RNA OK+probe Ql (Unsp spec) Not detected Normal Not Detected [facility] Comment on above: Order Comment: The A ptima SARS-CoV-2 assay is a nucleic acid amplification test intended for the qualitative detection of RNA from SARS-CoV-2 isolated and purified from nasopharyngeal (F[employer]ONGE [employer]OOKING),oropharyngeal (OP), nasal swab, sputum, and bronchoalveolar lavage (BAL) specimens from patients with signs and symptoms of infection who are suspected of COVID-19. Results are for the identification of SARS-CoV-2 RNA. The SARS-CoV-2 RNA is generally detectable during the acute phase of infection. The Aptima SARS-CoV-2 Assay on the [employer] and Bone Gap Fusion system is intended for use by laboratory personnel specifically instructed and trained in the operation of the Bone Gap and Bone Gap Fusion system. The Aptima SARS-CoV-2 assay is only for use under the Food and Drug Administration Emergency Use Authorization. Testing is limited to laboratories certified under the Clinical Laboratory Improvement Amendments of 1988 (CLIA), 42 U.S.C. ???263a, to perform high complexity tests. Not Detected: Not detected does not preclude SARS-CoV-2 infection and should not be used as the sole basis for patient management decisions. Not detected results must be combined with clinical observations, patient history, and epidemiological information. Performed By: #### 3 [id number] #### [facility] [address] [facility]. [address] NM Hepatobiliary System w/ P fonseca 06-12-2017 NM Hepatobiliary System w/ Pharm Patient Name: TORREY ANTONY Nuc Med Exam Date/Time 06/12/2017 13:09:26 EST Exam NM Hepatobiliary Duct System Imaging Ordering Physician DO ROWELL PAUL FRANCIS Accession Number [id number] CPT4 Codes 02668 () Reason For Exam Nausea Report Study: HEPATOBILIARY SCANwith CCK CLINICAL INDICATION: abdominal pain TECHNIQUE: Following the intravenous administration of 3.5 mCi Tc-99m Choletec a hepatobiliary study was performed. Images were then acquired over the abdomen in the anterior projection for approximately one hour. Thereafter post-CCK imaging was performed. COMPARISON: None FINDINGS: Normal radiopharmaceutical uptake is demonstrated within the liver, with excretion into the biliary tree. Activity is demonstrated within the gallbladder within 60 minutes. Tracer also passes into the small bowel. The gallbladder ejection fraction is 65 percent. The normal range is 35 percent or greater. IMPRESSION: Normal biliary function in response to CCK. Report Dictated on Final Dictating Physician: MD BERGER JOHN Signed Date and Time: 06/12/2017 1:27 pm Signed by: MD BERGER JOHN Transcribed Date and Time: 06/12/2017 1:28 Normal [facility] CNOVon 05-22-2017 CNOV Office Visit (WALKWA) [facility]ONTORREY ([id number]) 1990 [facility] Uaugozzwcd89/5/17 9:30 AM KAMRAN WALLIS) GABY During your visit today, we recorded the following information about you: Temperature Pulse Respiration Blood pressure 96.8 degrees 101/minute 16/minute 113/80 Weight 87.1 kgRachel Amee Wallis PA-C, MARCIN 05/22/2017 10:14 AM Mfyxbc2505/22/2017Patient presents with:Acute VisitSUBJECTIVE: This is a 26 year old female that is here today for vomitingShe complains of persistent NBNB nausea and vomiting over the past day- ANDquot;Ican't keep anything downANDquot;. She states that she had n/v last week, but itresolved over a couple of days. Now she is tearful with 10/10 generalizedabdominal pain, more focused to central abdomen and possible the epigastricarea.She denies constipation, bloating, heart burn, reflux feelings, diarrhea, backpain, chest pain, or UTI symptoms.She reports h/o ANDquot;gallbladder issuesANDquot; but states that all studiesANDquot;never show anythingANDquot;.Denies fever, chills, sweats, or fatigue.Patient denies wheezing, shortness of breath, increased WOB, or chest pain.No other URI symptoms.No other sick symptoms.Pain on scale of 0-10 with 0 being no pain and 10 being greatest pain: 0Nothing makes the symptoms better. Nothing makes them worse.Self-treatment:. noneThe severity is mild and the symptoms are not improving.The patient did not have a similar problem in the last 3 months.The patient did not take any antibiotics in the last 3 months.Barriers to learning: none.Reviewed meds, OTCs, herbals or supplements.Reviewed allergies, medications, and past medical history..PAST MEDICAL HISTORYDiagnosis Date- AnxietyALLERGIES Review of patient's allergies indicates no known allergies.MEDICATIONSCu rrent Outpatient Prescriptions:ibuprofen (MOTRIN) 600 mg tablet Take 1 tablet by mouth every 6 hours as neededfor Pain.oxyCODONE-acetamin ophen (PERCOCET) 5-325 mg tablet Take 1 tablet by mouth every4 hours as needed for Pain.ONABOTULINUMTOXINA (BOTOX INJECTION) by INJECTION(UNSPECIFIED PARENTERALROUTES) route.No current facility-administered medications for this visit.Medications and allergies reviewed by this provider.SOCIAL HISTORYSocial History Marital status: Single Spouse name: Years of education: Number of children:Social History Main Topics Smoking status: Never Smoker Smokeless status: Never Used Alcohol use: Yes Comment: 1-2 per month Drug use: No Sexual activity: Yes Partners with: Male Comment: depo shotREVIEW OF SYSTEMSReview of SystemsROS: constitutional-neg, heent-neg, heart-neg, respiratory-neg, GI-n/v, -neg,skin-neg, lymph-neg, All systems neg except as noted above in HPI.OBJECTIVE:BP 113/80 Pulse 101 Temp 36 ?C (96.8 ?F) (Left Tympanic) Resp 16 Wt87.1 kg (192 lb) BMI 31.95 kg/m2. Vital signs reviewed by this provider.Physical ExamAAOx3, no acute distress, patient is pleasant, well groomed, dressedappropriately.Ge neral: WD, WN, NAD, alert.Chest: CTA bilaterally with equal breath sounds; good air exchange throughout.No wheezing, rhonchi, or crackles; no retractions, tripoding, or nasal flaringnoted.Heart: RRR, no murmur, rub, or gallop..Abdomen: BS x 4 quads, soft, nondistended, generalized pain and became tearfulwith exam 10/10 pain with palpation- no specific focus of pain, no masses ororganomegaly, no rebound tenderness or guarding. No CVA tenderness topercussion.Skin: no rash noted, cap refill ANDlt;3sec, normal skin turgor noted.ASSESSMENT/PLAN:1 . Generalized abdominal pain - ICD9: 789.07, ICD10: R10.84 (primary diagnosis)2. Epigastric abdominal pain - ICD9: 789.06, ICD10: R10.133. Non-intractable vomiting with nausea, unspecified vomiting type - ICD9:787.01, ICD10: R11.2- 10/10 abdominal pain (tearful) - generalized, but more specific to centraland epigastric- Recurring vomiting and nausea- States she is Unable to keep food/fluids down- She reports h/o ANDquot;gallbladder issuesANDquot; but states that all studiesANDquot;never show anythingANDquot;- Vitals stable, no fever. She refused offer of antiemetics, PPI, and watch ansee option for likely simply viral cause- and go to ER this afternoon ifpersisting. She would prefer ER now. Unable to order labs, fluids, or any imaging from [facility] Care settingReferred to ER for further eval of pain- labs, fluids, may need imaging- [facility] ERVitals stable, no fever. She refused offer of antiemetics, PPI, and watch ansee option for possible simply viral cause- and go to ER this afternoon ifpersisting. She would prefer ER now.No further questions.Follow up as needed.Barriers to learning: none.The patient verbalizes understanding and is in agreement with plan of care.MARCIN Krishnamurthy-Radha Wallis PA-C, MARCIN 05/22/2017 9:36 AM SignedASSESSMENT/PLAN:1 . Generalized abdominal pain -2. Epigastric abdominal pain -3. Vomiting with nausea, unspecified vomiting type -- 10/10 abdominal pain (tearful) - generalized, but more epigastric and RUQ- Recurring vomiting and nausea- Unable to keep food/fluids downReferred to ER for further eval of pain- labs, fluids, may need imagingNo further questions.Follow up as needed.Barriers to learning: none.The patient verbalizes understanding and is in agreement with plan of care.MARCIN Krishnamurthy-CReferring Provider: SELF [[id number]]Allergies As of Date: 05/22/2017(No Known Allergies)Date Reviewed: 05/22/2017Reviewed by: Regine Turcios Ma - Fully AssessedReason for Visit: Acute Visit [896]Primary Visit Diagnosis:Generalized abdominal pain [R10.84] Other Visit Diagnoses:Epigastric abdominal pain [R10.13] Non-intractable vomiting with nausea, unspecified vomiting type [R11.2]Prescriptions as of 05/22/2017 Sig: IBUPROFEN 600 MG TABLET Take 1 tablet by mouth every * BOTOX INJECTION by INJECTION(UNSPECIFIED PARE* OXYCODONE-ACETAMINOPHEN 5 MG-* Take 1 tablet by mouth every *Problem List As Of Date 05/22/2017 Noted Resolved Abdominal pain [R10.9] INVALID FOR* arrhythmia affecting , antepartu*INVALID FOR*03/31/2015 Irregular bleeding [N92.6] INVALID FOR* Menometrorrhagia [N92.1] INVALID FOR* Other instructions from your clinician: ASSESSMENT/PLAN: 1. Generalized abdominal pain - 2. Epigastric abdominal pain - 3. Vomiting with nausea, unspecified vomiting type - - 03/27 abdominal pain (tearful) - generalized, but more epigastric and RUQ - Recurring vomiting and nausea - Unable to keep food/fluids down Referred to ER for further eval of pain- labs, fluids, may need imaging No further questions. Follow up as needed. Barriers to learning: none. The patient verbalizes understanding and is in agreement with plan of care. Suzie Krishnamurthy PA-[facility]re[facility] [address], [address] [place], [place] [address]Phone: Mai: [phone] P [place] 2016RE: Torrey AntonyTo Whom it May Concern:This is to certify that Torrey Antony was seen here for medical care.Please excuse them from work today.Thank you for your cooperation in this matter.Sincerely,Kamran Wallis PA-C(Electronically signed to expedite processing) Status:Closed by KARMAN WALLIS on 05/22/17 Normal [facility] PROGRESSon 05-22-2017 PROGRESS HNO ID: [id number]: Kamran Lubin (Tatiana) Jesus Wallis: (none)Author Type: Physician AssistantType: Progress NotesFiled: 05/22/2017 10:14 AMNote Text:05/22/2017Patient presents with:Acute VisitSUBJECTIVE: This is a 26 year old female that is here today for vomitingShe complains of persistent NBNB nausea and vomiting over the past day- Ican't keep anything down . She states that she had n/v last week, but itresolved over a couple of days. Now she is tearful with 10/10 generalizedabdominal pain, more focused to central abdomen and possible theepigastric area.She denies constipation, bloating, heart burn, reflux feelings, diarrhea,back pain, chest pain, or UTI symptoms.She reports h/o gallbladder issues but states that all studies nevershow anything .Denies fever, chills, sweats, or fatigue.Patient denies wheezing, shortness of breath, increased WOB, or chestpain.No other URI symptoms.No other sick symptoms.Pain on scale of 0-10 with 0 being no pain and 10 being greatest pain: 0Nothing makes the symptoms better. Nothing makes them worse.Self-treatment:. noneThe severity is mild and the symptoms are not improving.The patient did not have a similar problem in the last 3 months.The patient did not take any antibiotics in the last 3 months.Barriers to learning: none.Reviewed meds, OTCs, herbals or supplements.Reviewed allergies, medications, and past medical history..PAST MEDICAL HISTORYDiagnosis Date- AnxietyALLERGIES Review of patient's allergies indicates no known allergies.MEDICATIONSCu rrent Outpatient Prescriptions:ibuprofen (MOTRIN) 600 mg tablet Take 1 tablet by mouth every 6 hours asneeded for Pain.oxyCODONE-acetamin ophen (PERCOCET) 5-325 mg tablet Take 1 tablet by mouthevery 4 hours as needed for Pain.ONABOTULINUMTOXINA (BOTOX INJECTION) by INJECTION(UNSPECIFIED PARENTERALROUTES) route.No current facility-administered medications for this visit.Medications and allergies reviewed by this provider.SOCIAL HISTORYSocial History Marital status: Single Spouse name: Years of education: Number of children:Social History Main Topics Smoking status: Never Smoker Smokeless status: Never Used Alcohol use: Yes Comment: 1-2 per month Drug use: No Sexual activity: Yes Partners with: Male Comment: depo shotREVIEW OF SYSTEMSReview of SystemsROS: constitutional-neg, heent-neg, heart-neg, respiratory-neg, GI-n/v,-neg, skin-neg, lymph-neg, All systems neg except as noted above inHPI.OBJECTIVE:BP 113/80 Pulse 101 Temp 36 ?C (96.8 ?F) (Left Tympanic) Resp 16 Wt 87.1 kg (192 lb) BMI 31.95 kg/m2. Vital signs reviewed by thisprovider.Physical ExamAAOx3, no acute distress, patient is pleasant, well groomed, dressedappropriately.Ge neral: WD, WN, NAD, alert.Chest: CTA bilaterally with equal breath sounds; good air exchangethroughout. No wheezing, rhonchi, or crackles; no retractions, tripoding,or nasal flaring noted.Heart: RRR, no murmur, rub, or gallop..Abdomen: BS x 4 quads, soft, nondistended, generalized pain and becametearful with exam 10/10 pain with palpation- no specific focus of pain, nomasses or organomegaly, no rebound tenderness or guarding. No CVAtenderness to percussion.Skin: no rash noted, cap refill <3sec, normal skin turgor noted.ASSESSMENT/PLAN:1 . Generalized abdominal pain - ICD9: 789.07, ICD10: R10.84 (primarydiagnosis)2. Epigastric abdominal pain - ICD9: 789.06, ICD10: R10.133. Non-intractable vomiting with nausea, unspecified vomiting type - ICD9:787.01, ICD10: R11.2- 10/10 abdominal pain (tearful) - generalized, but more specific tocentral and epigastric- Recurring vomiting and nausea- States she is Unable to keep food/fluids down- She reports h/o gallbladder issues but states that all studies nevershow anything - Vitals stable, no fever. She refused offer of antiemetics, PPI, andwatch an see option for likely simply viral cause- and go to ER thisafternoon if persisting. She would prefer ER now. Unable to order labs, fluids, or any imaging from this [facility]aresettingReferred to ER for further eval of pain- labs, fluids, may need imaging-[facility] ERVitals stable, no fever. She refused offer of antiemetics, PPI, and watchan see option for possible simply viral cause- and go to ER this afternoonif persisting. She would prefer ER now.No further questions.Follow up as needed.Barriers to learning: none.The patient verbalizes understanding and is in agreement with plan ofcare.Kamran Wallis PA-C Normal [facility] CR Chest PA/LATon 04-07-2017 CR Chest PA/LAT Patient Name: TORREY CAAL Diagnostic Radiology Exam Date/Time 04/07/2017 10:07:18 EDT Exam CR Chest PA/LAT Ordering Physician MD HENDRICKS DAVID L Accession Number [id number] CPT4 Codes 73662 () Reason For Exam dyspnea Report CHEST X-RAY PA/LATERAL CLINICAL INDICATION: Dyspnea Frontal and lateral plain films of the chest were obtained. COMPARISON: 07/23/2007 FINDINGS: The cardiac silhouette is within normal limits. No focal consolidation is seen within the lungs. No pleural effusion or pneumothorax is identified. The bony structures of the chest are unremarkable as visualized. IMPRESSION: No acute cardiopulmonary disease. Report Dictated on Final Dictating Physician: CHRISTIAN ADAM Signed Date and Time: 04/07/2017 10:24 am Signed by: CHRISTIAN ADAM Transcribed Date and Time: 04/07/2017 10:25 Normal [facility] RF Small Bowel w/ Serial Ryan mson 01-01-2017 RF Small Bowel w/ Serial Films Patient Name: TORREY ANTONY Fluoroscopy Exam Date/Time 01/01/2017 10:06:32 EDT Exam RF Small Bowel w/ Serial Films Ordering Physician DO ROWELL PAUL FRANCIS Accession Number [id number] CTP4 Codes 65203 () Reason For Exam epigastric pain Report Small bowel follow-through: 01/01/2017. CLINICAL INFORMATION: Epigastric pain. FINDINGS: A small bowel follow-through only was performed as requested. The upper gastrointestinal system was not evaluated as that was not requested. 0.5 minutes of fluoroscopic time was used for the examination. Four fluoroscopic spot films were obtained. There is no thickening of small bowel folds and no separation of small bowel loops. No areas of stricturing or narrowing were seen. No filling defects in the barium column were identified. The terminal ileum was isolated as a separate structure and appears unremarkable. IMPRESSION: No acute process. Report Dictated on Final Dictated: 01/01/2017 11:18 am Dictating Physician: MD FONG RISA Signed Date and Time: 01/01/2017 12:11 pm Signed by: MD FONG RISA Transcribed Date and Time: 01/01/2017 11:18 Normal [facility] Surgical Pathologyon 12-12-2 017 Surgical Pathology [id number] [facility] PATHOLOGY AND LABORATORY MEDICINE [address] [place] [phone] Fax - FINAL SURGICAL PATHOLOGY REPORT NAME: TORREY ANTONY .O.B.: 1990 25 Y F BILLING NO.: [id number]: WENDO PROCEDURE 12/12/2016 DATE:SURGEON: MANI ROWELL DO RECEIVED 12/13/2016 DATE:ATTENDING: MANI ROWELL DO REPORT DATE: 12/14/2016 COPIES TO: DIAGNOSIS:A. DUODENUM, SECOND PART, BIOPSY - UNREMARKABLE DUODENAL MUCOSA Comment: The specimen demonstrates an unremarkable villous architecture without significantly increased intraepithelial lymphocytes. Whipple's disease is not identified. Parasites are not identified.B. STOMACH, ANTRUM, BIOPSY - REACTIVE GASTROPATHY Comment: Evaluation of the H of Helicobacter pylori or any morphologic features to suggest infection with the organism; as such, further studies for Helicobacter are not indicated. There is no evidence of intestinal metaplasia, dysplasia or malignancy. Reference: Marko KHAN et al. Appropriate use of special stains for identifying Helicobacter pylori: Recommendations from the Behzad Erin. [place] Gastrointestinal [employer] Society. Am J Surg Pathol. 2013 Nov;37(11):e12-22.ASJ/0 RW ANNMARIE HUERTA M.D. CLINICAL INFORMATION: Epigastric abdominal pain, hematemesisSPECIMEN: (A) DUODENUM, BIOPSY (B) GASTRIC BIOPSY GROSS DESCRIPTION:A. Duodenum, second part Received in formalin are two charles soft mucosal fragments that are 0.1and 0.2 cm in greatest dimension. Submitted entirely in one cassette.(2 ns, 1)B. Antrum, rule out Helicobacter pylori Received in formalin are two charles soft mucosal fragments that are each0.2 cm in greatest dimension. Submitted entirely in one cassette. (2ns, 1) MLC1/LDA7Lspagjmatg: The following statement applies to allimmunohistochemistry , in situ hybridization, molecular studies, andimmunofluorescence testing.The use of one or more reagents in the above tests is regulated as ananalyte specific reagent (ASR). These tests were developed and theirperformance characteristics determined by the [facility]. They have not been cleared by the US Food and DrugAdministration (FDA). The FDA has determined that such clearance orapproval is not necessary.All the above immunostains were performed on paraffin embedded tissue.Appropriate positive and negative controls (where applicable) were runin parallel with the patient's specimen; these controls showed expectedstaining pattern, with acceptable intensity of staining.Immunohistoche mical assays have not been validated on decalcifiedtissues. Results should be interpreted with caution given the raisedpossibility of false negativity on decalcified specimens.Case reviewed at [facility] [address], [place]. DEPARTMENT OF PATHOLOGY AND LABORATORY MEDICINE [place], [place] [address] Normal [facility] Comment on above: Performed By: #### S UR ####Performing Lab is in report US Abdomen Limitedon 017 US Abdomen Limited Patient Name: TORREY CAAL Ultrasound Exam Date/Time 12/12/2016 12:25:54 EDT Exam US Abdomen Limited Ordering Physician DO ROWELL PAUL FRANCIS Accession Number [id number] CPT4 Codes 57392 () Reason For Exam epigasric pain Report RIGHT UPPER QUADRANT ULTRASOUND CLINICAL INDICATION: Epigastric pain Multiple sonographic images of the gallbladder and right upper quadrant of the abdomen were obtained. COMPARISON: 07/07/2011 FINDINGS: The gallbladder is unremarkable in appearance. No gallstones, gallbladder wall thickening, or pericholecystic fluid is identified. Sonographic Mast's sign is negative. The liver is normal in size. Parenchymal echotexture is normal. No focal hepatic lesions are seen. There is no intrahepatic or extrahepatic biliary dilatation. The common bile duct is normal, measuring 4 mm. The pancreas is not well seen distally due to overlying bowel gas. Survey views of the right kidney are unremarkable. There is no hydronephrosis. IMPRESSION: Suboptimal visualization of the distal pancreas due to overlying bowel gas. Otherwise unremarkable right upper quadrant ultrasound. Report Dictated on Final Dictating Physician: CHRISTIAN ADAM Signed Date and Time: 12/12/2016 3:06 pm Signed by: CHRISTIAN ADAM Transcribed Date and Time: 12/12/2016 3:07 Normal [facility] Anti-Nuclear Antibodyon 11-17 VLADISLAV Titer <1:40 Normal <1:40 [facility] Comment on above: Performed By: #### A NA ####[facility] [place] [address] Vital Signs Date Time Vital Sign Value Performing Clinician Facility 10-16-2023 14:50-0400 Body temperature 97.8 [degF] [employer] Tiki William Work Phone: [facility] 10-16-2023 14:50-0400 Diastolic blood pressure 78 mm[Hg] [employer] Tiki William Work Phone: [facility] 10-16-2023 14:50-0400 Heart rate 77 /min [employer] Tiki William Work Phone: [facility] 10-16-2023 14:50-0400 Respiratory rate 16 /min [employer] Tiki William Work Phone: [facility] 10-16-2023 14:50-0400 SaO2% (BldA) [Mass fraction] 98 % [employer] Tikithania Wrightmer Work Phone: [facility] 10-16-2023 14:50-0400 Systolic blood pressure 120 mm[Hg] [employer] Tiki William Work Phone: [facility] 10-16-2023 10:05-0400 Body height 165.1 cm [employer] Tikithania Wrightmer Work Phone: [facility] 10-16-2023 10:05-0400 Body weight 66.1 kg [employer] Tikithania Wrightmer Work Phone: [facility] 10-15-2023 16:25-0400 Diastolic blood pressure 80 mm[Hg] [facility] 10-15-2023 16:25-0400 Heart rate 95 /min [facility] 10-15-2023 16:25-0400 SaO2% (BldA) [Mass fraction] 99 % [facility] 10-15-2023 16:25-0400 Systolic blood pressure 102 mm[Hg] [facility] 03-22-2023 16:00-0400 Body height 167.64 cm Mark Myrick Other [facility] Other 03-22-2023 16:00-0400 Diastolic blood pressure 80 mm[Hg] Mark Myrick Other [facility] Other 03-22-2023 16:00-0400 SaO2% (BldA) [Mass fraction] 98 % Mark Myrick Other [facility] Other 03-22-2023 16:00-0400 Systolic blood pressure 120 mm[Hg] Mark Myrick Other [facility] Other 12-20-2022 09:00-0400 Body height 167.64 cm Arely Jackman Other [facility] Other 12-20-2022 09:00-0400 Body mass index (BMI) [Ratio] 30.37 kg/m2 Arely Jackman Other [facility] Other 12-20-2022 09:00-0400 Body weight 85.37 kg Arely Jackman Other [facility] Other 12-20-2022 09:00-0400 Diastolic blood pressure 70 mm[Hg] Arely Jackman Other [facility] Other 12-20-2022 09:00-0400 SaO2% (BldA) [Mass fraction] 99 % Arely Jackman Other [facility] Other 12-20-2022 09:00-0400 Systolic blood pressure 118 mm[Hg] Arely Jackman Other [facility] Other 12-14-2022 13:15-0400 Body height 167.64 cm Mark Myrick Other [facility] Other 12-14-2022 13:15-0400 Diastolic blood pressure 86 mm[Hg] Mark Myrick Other [facility] Other 12-14-2022 13:15-0400 SaO2% (BldA) [Mass fraction] 98 % Mark Myrick Other [facility] Other 12-14-2022 13:15-0400 Systolic blood pressure 122 mm[Hg] Mark Myrick Other [facility] Other 12-06-2022 13:08-0400 Diastolic blood pressure 84 mm[Hg] [employer] Tiki William Work Phone: [facility] 12-06-2022 13:08-0400 Heart rate 87 /min [employer] Tiki William Work Phone: [facility] 12-06-2022 13:08-0400 Respiratory rate 16 /min [employer] Tiki William Work Phone: [facility] 12-06-2022 13:08-0400 SaO2% (BldA) [Mass fraction] 98 % [employer] Tiki William Work Phone: [facility] 12-06-2022 13:08-0400 Systolic blood pressure 126 mm[Hg] [employer] Tiki William Work Phone: [facility] 12-06-2022 12:21-0400 Inhaled oxygen flow rate 3 L/min [employer] Tiki William Work Phone: [facility] 12-06-2022 09:28-0400 Body height 165.1 cm [employer] Tiki William Work Phone: [facility] 12-06-2022 09:28-0400 Body weight 85.27 kg [employer] Tiki William Work Phone: [facility] 10-16-2022 17:00-0400 Body height 167.64 cm Mark Myrick Other [facility] Other 10-16-2022 17:00-0400 Diastolic blood pressure 80 mm[Hg] Mark Myrick Other [facility] Other 10-16-2022 17:00-0400 SaO2% (BldA) [Mass fraction] 98 % Mark Myrick Other [facility] Other 10-16-2022 17:00-0400 Systolic blood pressure 122 mm[Hg] Mark Myrick Other [facility] Other 09-14-2022 16:30-0400 Body height 167.64 cm Mark Myrick Other [facility] Other 09-14-2022 16:30-0400 Body mass index (BMI) [Ratio] 30.73 kg/m2 Mark Myrick Other [facility] Other 09-14-2022 16:30-0400 Body weight 86.37 kg Mark Myrick Other [facility] Other 09-14-2022 16:30-0400 Diastolic blood pressure 78 mm[Hg] Mark Myrick Other [facility] Other 09-14-2022 16:30-0400 SaO2% (BldA) [Mass fraction] 99 % Mark Myrick Other [facility] Other 09-14-2022 16:30-0400 Systolic blood pressure 124 mm[Hg] Mark Myrick Other [facility] Other 08-24-2022 15:15-0500 Body height 167.64 cm Mark Ramez Other [facility] Other 08-24-2022 15:15-0500 Diastolic blood pressure 80 mm[Hg] Mark Ramez Other [facility] Other 08-24-2022 15:15-0500 SaO2% (BldA) [Mass fraction] 98 % Mark Ramez Other [facility] Other 08-24-2022 15:15-0500 Systolic blood pressure 120 mm[Hg] Mark Ramez Other [facility] Other 08-01-2022 10:45-0500 Body height 167.64 cm Mark Ramez Other [facility] Other 08-01-2022 10:45-0500 Diastolic blood pressure 80 mm[Hg] Mark Ramez Other [facility] Other 08-01-2022 10:45-0500 SaO2% (BldA) [Mass fraction] 99 % Mark Ramez Other [facility] Other 08-01-2022 10:45-0500 Systolic blood pressure 126 mm[Hg] Mark Ramez Other [facility] Other 05-24-2022 17:00-0500 Body height 167.64 cm Mark Ramez Other [facility] Other 05-24-2022 17:00-0500 Diastolic blood pressure Mark Ramez Other [facility] Other 05-24-2022 17:00-0500 Systolic blood pressure 110 mm[Hg] Mark Myrick Other [facility] Other 05-02-2022 15:15-0500 Body height 167.64 cm Arely Jackman Other [facility] Other 05-02-2022 15:15-0500 Body mass index (BMI) [Ratio] 31.53 kg/m2 Arely Jackman Other [facility] Other 05-02-2022 15:15-0500 Body weight 88.63 kg Arely Jackman Other [facility] Other 05-02-2022 15:15-0500 Diastolic blood pressure 64 mm[Hg] Arely Jackman Other [facility] Other 05-02-2022 15:15-0500 Respiratory rate 18 /min Arely Jackman Other [facility] Other 05-02-2022 15:15-0500 SaO2% (BldA) [Mass fraction] 99 % Arely Jackman Other [facility] Other 05-02-2022 15:15-0500 Systolic blood pressure 118 mm[Hg] Arely Jackman Other [facility] Other 02-03-2022 12:00-0400 Body height 167.64 cm Mark Myrick Other [facility] Other 02-03-2022 12:00-0400 Body mass index (BMI) [Ratio] 32.28 kg/m2 Mark Myrick Other [facility] Other 02-03-2022 12:00-0400 Body weight 90.72 kg Markandrés Myrick Other [facility] Other 02-03-2022 12:00-0400 Diastolic blood pressure 80 mm[Hg] Mark Ramez Other [facility] Other 02-03-2022 12:00-0400 SaO2% (BldA) [Mass fraction] 99 % Mark Ramez Other [facility] Other 02-03-2022 12:00-0400 Systolic blood pressure 120 mm[Hg] Mark Ramez Other [facility] Other 01-11-2022 16:45-0400 Body height 167.64 cm Markandrés Myrick Other [facility] Other 01-11-2022 16:45-0400 Diastolic blood pressure 80 mm[Hg] Mark Ramez Other [facility] Other 01-11-2022 16:45-0400 SaO2% (BldA) [Mass fraction] 99 % Mark Ramez Other [facility] Other 01-11-2022 16:45-0400 Systolic blood pressure 124 mm[Hg] Mark Ramez Other [facility] Other 12-26-2021 12:30-0400 Body height 167.64 cm Mark Myrick Other [facility] Other 12-26-2021 12:30-0400 Body mass index (BMI) [Ratio] 33.25 kg/m2 Markandrés Myrick Other [facility] Other 12-26-2021 12:30-0400 Body weight 93.44 kg Mark Myrick Other [facility] Other 12-26-2021 12:30-0400 Diastolic blood pressure 80 mm[Hg] Mark Ramez Other [facility] Other 12-26-2021 12:30-0400 SaO2% (BldA) [Mass fraction] 99 % Mark Ramez Other [facility] Other 12-26-2021 12:30-0400 Systolic blood pressure 124 mm[Hg] Mark Ramez Other [facility] Other 11-24-2021 14:45-0400 Body height 167.64 cm Mark Myrick Other [facility] Other 11-24-2021 14:45-0400 Body mass index (BMI) [Ratio] 34.05 kg/m2 Mark Myrick Other [facility] Other 11-24-2021 14:45-0400 Body weight 95.71 kg Mark Myrick Other [facility] Other 11-24-2021 14:45-0400 Diastolic blood pressure 80 mm[Hg] Mark Ramez Other [facility] Other 11-24-2021 14:45-0400 SaO2% (BldA) [Mass fraction] 99 % Mark Myrick Other [facility] Other 11-24-2021 14:45-0400 Systolic blood pressure 122 mm[Hg] Mark Ramez Other [facility] Other 11-11-2021 11:00-0400 Body height 167.64 cm Mark Myrick Other [facility] Other 11-11-2021 11:00-0400 Body mass index (BMI) [Ratio] 33.89 kg/m2 Mark Myrick Other [facility] Other 11-11-2021 11:00-0400 Body weight 95.26 kg Mark Myrick Other [facility] Other 11-11-2021 11:00-0400 Diastolic blood pressure 82 mm[Hg] Mark Myrick Other [facility] Other 11-11-2021 11:00-0400 SaO2% (BldA) [Mass fraction] 93 % Mark Myrick Other [facility] Other 11-11-2021 11:00-0400 Systolic blood pressure 126 mm[Hg] Mark Myrick Other [facility] Other 10-20-2021 12:15-0400 Body height 167.64 cm Arely Jackman Other [facility] Other 10-20-2021 12:15-0400 Body mass index (BMI) [Ratio] 33.25 kg/m2 Arely Jackman Other [facility] Other 10-20-2021 12:15-0400 Body weight 93.44 kg Arely Jackman Other [facility] Other 10-20-2021 12:15-0400 Diastolic blood pressure 74 mm[Hg] Arely Jackman Other [facility] Other 10-20-2021 12:15-0400 Systolic blood pressure 104 mm[Hg] Arely Jackman Other [facility] Other 10-18-2021 12:15-0400 Body height 167.64 cm Tiki Talleymond Other [facility] Other 10-18-2021 12:15-0400 Body mass index (BMI) [Ratio] 33.41 kg/m2 Tiki Talleymond Other [facility] Other 10-18-2021 12:15-0400 Body temperature 98.7 [degF] Tiki Talleymond Other [facility] Other 10-18-2021 12:15-0400 Body weight 93.9 kg Tiki Devi Other [facility] Other 10-18-2021 12:15-0400 Diastolic blood pressure 88 mm[Hg] Tiki Devi Other [facility] Other 10-18-2021 12:15-0400 Respiratory rate 18 /min Tiki Devi Other [facility] Other 10-18-2021 12:15-0400 SaO2% (BldA) [Mass fraction] 99 % Tiki Devi Other [facility] Other 10-18-2021 12:15-0400 Systolic blood pressure 123 mm[Hg] Tiki Devi Other [facility] Other 09-14-2021 14:00-0400 Body height 167.64 cm Mark Myrick Other [facility] Other 09-14-2021 14:00-0400 Body mass index (BMI) [Ratio] 33.54 kg/m2 Mark Myrick Other [facility] Other 09-14-2021 14:00-0400 Body weight 94.26 kg Mark Myrick Other [facility] Other 09-14-2021 14:00-0400 SaO2% (BldA) [Mass fraction] 99 % Mark Myrick Other [facility] Other 08-29-2021 11:15-0400 Body height 167.64 cm Mark Myrick Other [facility] Other 08-29-2021 11:15-0400 Body mass index (BMI) [Ratio] 2.19 kg/m2 Mark Myrick Other [facility] Other 08-29-2021 11:15-0400 Body weight 6.17 kg Mark Myrick Other [facility] Other 08-29-2021 11:15-0400 Diastolic blood pressure 70 mm[Hg] Mark Myrick Other [facility] Other 08-29-2021 11:15-0400 SaO2% (BldA) [Mass fraction] 99 % Mark Myrick Other [facility] Other 08-29-2021 11:15-0400 Systolic blood pressure 110 mm[Hg] Mark Myrick Other [facility] Other 08-11-2021 11:45-0500 Body height 167.64 cm Arely Jackman Other [facility] Other 08-11-2021 11:45-0500 Body mass index (BMI) [Ratio] 34.59 kg/m2 Arely Jackman Other [facility] Other 08-11-2021 11:45-0500 Body weight 97.21 kg Arely Jackman Other [facility] Other 08-11-2021 11:45-0500 Diastolic blood pressure 64 mm[Hg] Arely Jackman Other [facility] Other 08-11-2021 11:45-0500 Respiratory rate 18 /min Arely Jackman Other [facility] Other 08-11-2021 11:45-0500 SaO2% (BldA) [Mass fraction] 98 % Arely Jackman Other [facility] Other 08-11-2021 11:45-0500 Systolic blood pressure 108 mm[Hg] Arely Jackman Other [facility] Other 07-28-2021 11:30-0500 Body height 167.64 cm Arely Jackman Other [facility] Other 07-28-2021 11:30-0500 Body mass index (BMI) [Ratio] 34.76 kg/m2 Arely Jackman Other [facility] Other 07-28-2021 11:30-0500 Body weight 97.71 kg Arely Jackman Other [facility] Other 07-28-2021 11:30-0500 Diastolic blood pressure 62 mm[Hg] Arely Jackman Other [facility] Other 07-28-2021 11:30-0500 Respiratory rate 18 /min Arely Jackman Other [facility] Other 07-28-2021 11:30-0500 SaO2% (BldA) [Mass fraction] 98 % Arely Jackman Other [facility] Other 07-28-2021 11:30-0500 Systolic blood pressure 104 mm[Hg] Arely Jackman Other [facility] Other 07-06-2021 15:00-0500 Body height 167.64 cm Kevin Garcia Other [facility] Other 07-06-2021 15:00-0500 Body mass index (BMI) [Ratio] 34.38 kg/m2 Kevin Garcia Other [facility] Other 07-06-2021 15:00-0500 Body weight 96.62 kg Kevin Garcia Other [facility] Other 05-24-2021 14:00-0500 Body height 167.64 cm Dorinara Latif Other [facility] Other 05-24-2021 14:00-0500 Body mass index (BMI) [Ratio] 34.38 kg/m2 Dorinara Latif Other [facility] Other 05-24-2021 14:00-0500 Body weight 96.62 kg Dorinara Latif Other [facility] Other 05-24-2021 14:00-0500 Diastolic blood pressure 70 mm[Hg] Dorina Salomon Other [facility] Other 05-24-2021 14:00-0500 Systolic blood pressure 120 mm[Hg] Dorina Salomon Other [facility] Other 04-08-2021 13:15-0400 Body height 167.64 cm Markandrés Myrick Other [facility] Other 04-08-2021 13:15-0400 Body mass index (BMI) [Ratio] 33.89 kg/m2 Markandrés Myrick Other [facility] Other 04-08-2021 13:15-0400 Body weight 95.26 kg Mark Myrick Other [facility] Other 04-08-2021 13:15-0400 Diastolic blood pressure 70 mm[Hg] Mark Ramez Other [facility] Other 04-08-2021 13:15-0400 Systolic blood pressure 120 mm[Hg] Mark Ramez Other [facility] Other 03-14-2021 16:30-0400 Body height 167.64 cm Mark Myrick Other [facility] Other 03-14-2021 16:30-0400 Body mass index (BMI) [Ratio] 34.31 kg/m2 Markandrés Myrick Other [facility] Other 03-14-2021 16:30-0400 Body weight 96.44 kg Markandrés Myrick Other [facility] Other 03-14-2021 16:30-0400 Diastolic blood pressure 88 mm[Hg] Mark Myrick Other [facility] Other 03-14-2021 16:30-0400 SaO2% (BldA) [Mass fraction] 99 % Mark Myrick Other [facility] Other 03-14-2021 16:30-0400 Systolic blood pressure 130 mm[Hg] Mark Myrick Other [facility] Other Encounters Encounter Date Encounter Type Care Provider Facility Start: 10-16-2023 End: 10-16-2023 Emergency department patient visit Oh Carmona Markus Facility:[facility] Start: 10-16-2023 End: 10-16-2023 Emergency department patient visit NITZA Thomas Work Phone: [facility] Work Phone: Start: 10-15-2023 End: 10-15-2023 ambulatory [facility] Work Phone: Start: 10-15-2023 End: 10-15-2023 Patient encounter procedure [facility] Work Phone: Start: 07-12-2023 End: 07-12-2023 ambulatory Mark Myrick Other [facility] Other Start: 07-12-2023 Patient encounter procedure Mark Myrick [facility] Start: 06-05-2023 End: 06-05-2023 ambulatory Arely Jackman Other [facility] Other Start: 06-05-2023 Office outpatient visit 15 minutes Arely Jackman [facility] [place] Start: 03-22-2023 End: 03-22-2023 ambulatory Mark Myrick Other [facility] Other Start: 03-22-2023 Patient encounter procedure Mark Myrick [facility] Start: 02-20-2023 End: 02-20-2023 ambulatory Arely Jackman Other [facility] Other Start: 02-20-2023 Office outpatient visit 15 minutes Arely Jackman [facility] Start: 12-20-2022 End: 12-20-2022 ambulatory Arely Jackman Other [facility] Other Start: 12-20-2022 Office outpatient visit 15 minutes Arely Jackman [facility] Start: 12-14-2022 End: 12-14-2022 ambulatory Mark Myrick Other [facility] Other Start: 12-14-2022 Patient encounter procedure Mark Myrick [facility] Start: 12-06-2022 (PROC) PROCEDURE Mark Myrick [facility] Start: 12-06-2022 End: 12-06-2022 ambulatory Tiki Thomas Facility:[facility] Start: 12-06-2022 End: 12-06-2022 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 same day surgery center [facility] Tiki Thomas Work Phone: [facility] Work Phone: Start: 12-06-2022 End: 12-06-2022 ambulatory [facility] Tiki Thomas Work Phone: [facility] Work Phone: Start: 11-30-2022 End: 11-30-2022 ambulatory [facility] Start: 11-13-2022 End: 11-13-2022 ambulatory HOME LEE Facility:[facility] Start: 11-09-2022 End: 11-10-2022 ambulatory TIKI THOMAS Facility:[facility] Start: 11-02-2022 End: 11-02-2022 ambulatory HOME LEE Facility:[facility] Start: 10-16-2022 End: 10-16-2022 ambulatory Mark Myrick Other [facility] Other Start: 10-16-2022 Office outpatient visit 25 minutes Mark Myrick [facility] Start: 09-14-2022 End: 09-14-2022 ambulatory Mark Myrick Other [facility] Other Start: 09-14-2022 Patient encounter procedure Mark Myrick [facility] Start: 09-12-2022 End: 10-20-2022 ambulatory TIKITHANIA WRIGHTMER Facility:[facility] Start: 08-30-2022 ambulatory TIKITHANIA WRIGHTMER Facility: [facility] Start: 08-24-2022 End: 08-24-2022 ambulatory Mark Myrick Other [facility] Other Start: 08-24-2022 Patient encounter procedure Mark Myrick [facility] Start: 08-01-2022 End: 08-01-2022 ambulatory Mark Myrick Other [facility] Other Start: 08-01-2022 Office outpatient visit 25 minutes Mark Myrick [facility] Start: 07-20-2022 End: 07-21-[address] DIMPLE VELARDE . Facility:[facility] Start: 07-07-2022 End: 07-08-2022 ambulatory KEVIN JAMIL Facility:[facility] Start: 05-30-2022 End: 05-31-[address] DIMPLE VELARDE . Facility:[facility] Start: 05-24-2022 End: 05-24-2022 ambulatory Mark Myrick Other [facility] Other Start: 05-24-2022 Follow-up encounter Mark Myrick [facility] Start: 05-22-2022 End: 05-22-2022 ambulatory TIKI THOMAS Facility:[facility] Start: 05-02-2022 End: 05-02-2022 ambulatory Arely Jackman Other [facility] Other Start: 05-02-2022 Office outpatient visit 15 minutes Arely Jackman [facility] Start: 04-14-2022 ambulatory TIKI THOMAS Facility: [facility] Start: 04-04-2022 End: 04-05-2022 ambulatory TIKI THOMAS Facility:[facility] Start: 02-15-2022 End: 02-15-2022 ambulatory SHALA FREIRE . Facility:[facility] Start: 02-03-2022 End: 02-03-2022 ambulatory Mark Myrick Other [facility] Other Start: 02-03-2022 Office outpatient visit 15 minutes Mark Ramez [facility] Start: 01-11-2022 End: 01-11-2022 ambulatory Mark Ramez Other [facility] Other Start: 01-11-2022 Patient encounter procedure Mark Ramez [facility] Start: 01-05-2022 End: 02-16-2022 ambulatory MARKANDRÉS MYRICK Facility:[facility] Start: 12-26-2021 End: 12-26-2021 ambulatory Mark Ramez Other [facility] Other Start: 12-26-2021 Office outpatient visit 25 minutes Mark Ramez [facility] Start: 11-24-2021 End: 11-24-2021 ambulatory Mark Ramez Other [facility] Other Start: 11-24-2021 Patient encounter procedure Mark Ramez [facility] Start: 11-11-2021 End: 11-11-2021 ambulatory Mark Ramez Other [facility] Other Start: 11-11-2021 Office outpatient visit 15 minutes Mark Ramez [facility] Start: 10-20-2021 End: 10-20-2021 ambulatory Arely Jackman Other [facility] Other Start: 10-20-2021 Office outpatient visit 15 minutes Arely Jackman [facility] Start: 10-18-2021 End: 10-18-2021 ambulatory Tiki Quinonez Other [facility] Other Start: 10-18-2021 Office outpatient visit 15 minutes Tiki Quinonez [facility] Start: 09-28-2021 (Procedure) Short Mark Myrick [facility] Start: 09-28-2021 End: 09-28-2021 ambulatory Mark Myrick Other [facility] Other Start: 09-14-2021 End: 09-14-2021 ambulatory Mark Myrick Other [facility] Other Start: 09-14-2021 Office outpatient visit 25 minutes Markandrés Myrick [facility] Start: 09-07-2021 (Procedure) Short Mark Myrick [facility] Start: 09-07-2021 End: 09-07-2021 ambulatory Mark Ramez Other [facility] Other Start: 08-29-2021 End: 08-29-2021 ambulatory Mark Ramez Other [facility] Other Start: 08-29-2021 Patient encounter procedure Markandrés Myrick [facility] Start: 08-11-2021 End: 08-11-2021 ambulatory Arely Jackman Other [facility] Other Start: 08-11-2021 Office outpatient visit 25 minutes Arely Jackman [facility] Start: 07-28-2021 End: 07-28-2021 ambulatory Arely Jackman Other [facility] Other Start: 07-28-2021 Office outpatient visit 15 minutes Arely Jackman [facility] Start: 07-13-2021 (Procedure) Short Markandrés Myrick [facility] Start: 07-13-2021 End: 07-13-2021 ambulatory Mark Myrick Other [facility] Other Start: 07-12-2021 End: 07-12-2021 ambulatory Mark Myrick Other [facility] Other Start: 07-12-2021 Telephone encounter Mark Myrick [facility] Start: 07-06-2021 End: 07-06-2021 ambulatory Kevin Garcia Other [facility] Other Start: 07-06-2021 Office outpatient visit 15 minutes Kevin Garcia [facility] [place] Start: 06-06-2021 End: 06-06-2021 ambulatory Mark Myrick Other [facility] Other Start: 06-06-2021 Follow-up encounter Mark Myrick [facility] Start: 05-24-2021 End: 05-24-2021 ambulatory Dorinara Briscoez Other [facility] Other Start: 05-24-2021 Office outpatient visit 15 minutes Dorina Salomon [facility] Start: 04-08-2021 Office outpatient visit 25 minutes Mark Ramez [facility] [place] Start: 03-14-2021 Office outpatient visit 15 minutes Mark Ramez [facility] Start: 11-30-2020 End: 12-01-2020 ambulatory ABDULAZIM BONNIE Facility:[facility] Start: 04-26-2020 End: 04-27-2020 ambulatory ABDULAZIM BONNIE Facility:[facility] Start: 11-13-2017 Emergency department patient visit PROVIDER UNKNOWN [facility] Start: 06-12-2017 Ambulatory PROVIDER UNKNOWN [facility] Start: 05-28-2017 Ambulatory PROVIDER UNKNOWN [facility] Start: 05-22-2017 End: 05-22-2017 Ambulatory PROVIDER UNKNOWN [facility] Start: 05-02-2017 Ambulatory PROVIDER UNKNOWN [facility] Start: 04-07-2017 Ambulatory PROVIDER UNKNOWN [facility] Start: 02-02-2017 Emergency department patient visit PROVIDER UNKNOWN [facility] Start: 01-04-2017 Ambulatory PROVIDER UNKNOWN [facility] Start: 01-01-[address] [facility] Start: 12-26-2016 Ambulatory PROVIDER UNKNOWN [facility] Start: 12-12-[address] [facility] Start: 12-08-2016 End: 12-08-2016 Ambulatory POLINA A [facility] Start: 12-07-[address] [facility] Start: 10-13-2015 Ambulatory ANDRÉS MAGANA Facilit y:[facility] Procedures Date Procedure Procedure Detail Performing Clinician Start: 10-16-2023 Computed tomography of abdomen and pelvis with contrast [facility] Tiki Thomas Work Phone: Start: 10-16-2023 US scan of gallbladder [facility] Tiki Thomas Work Phone: Start: 12-06-2022 Radiofrequency destr uction of peripheral nerve [facility] Tiki Thomas Work Phone: Start: 11-30-2020 REVISE ARM/LEG NERVE AB DULAZIM BONNIE Start: 04-26-2020 ANESTH LOWER ARM SURGERY ABDULAZIM BONNIE Start: 04-26-2020 REMOVE WRIST/FOREARM LESION ABDULAZIM BONNIE Plan of Treatment Date Care Activity Detail Author Start: 12-06-[address] [facility] Start: 12-05-2022 ambulatory Ambulatory Facility:[facility] Patient Education [facility] Work Phone: Patient referral [facility] Work Phone: Immunizations Immunization Date Immunization Notes Care Provider Fa britty 12-23-2020 Kenalog -40 mg Mark Ramez Other [facility] Other 07-17-2019 influenza, seasonal, injectable Mark Ramez Other [facility] Other 03-13-2019 Depo-Medrol 80 mg Mark Levy y Other [facility] Other NEGATED: Highlighted row has not occurred!07-17-2019 influenza, seasonal, injectable Dorina Salomon Other [facility] Other Payers Date Payer Category Payer Private Health Insurance [id number] 2020 Worker's Compensation [id number] 2019 Unknown [id number] 1992 Unknown [id number] 2.16.840.1.994297.3.579.2.6 47 1992 Unknown [id number] 2.16.840.1.900645.3.579.2.6 47 1992 Unknown [id number] 2.16.840.1.099880.3.579.2.5 93 1992 Unknown [id number] 2.16.840.1.133800.3.579.2.5 93 1992 Unknown [id number] 2.16.840.1.174196.3.579.2.5 93 1992 Unknown [id number] 2.16.840.1.086890.3.579.2.5 93 1992 Unknown [id number] 2.16.840.1.925461.3.579.2.5 93 1992 Unknown [id number] 2.16.840.1.024531.3.579.2.5 93 1992 Unknown [id number] 2.16.840.1.912521.3.579.2.5 93 1992 Unknown [id number] 2.16.840.1.074979.3.579.2.5 93 1992 Unknown [id number] 2.16.840.1.106048.3.579.2.5 1992 Unknown [id number] 2.16.840.1.862738.3.579.2.5 93 1992 Unknown [id number] 2.16.840.1.085700.3.579.2.5 93 1992 Unknown [id number] 2.16.840.1.969530.3.579.2.5 93 1992 Unknown [id number] 2.16.840.1.858103.3.579.2.5 93 1992 Unknown [id number] 2.16.840.1.799257.3.579.2.5 93 1959 Self-pay 1959 Unknown [id number] 2.16.840.1.960391.19 1959 Unknown [id number] 2.16.840.1.837330.19 1959 Unknown [id number] Medicaid [id number] Private Health Insurance Private Health Insurance [id number] Unknown Unknown [id number] Unknown O [employer] Access [id number] Unknown Regular Auto/Liability [id number] Unknown [id number] 16.840.1.196751.3.579.2.5 31 Unknown [id number] 31 Social History Date Type Detail Facility Unknown if ever smoked [facility] Other Sex Assigned At Sex Assigned At Bir th [facility] Other Start: 02-05-2020 End: 10-16-2023 Tobacco smoking status NHIS Never smoked tobacco (finding) [facility] Start: 1990 Sex Assigned At Female F [facility] Goals Date Patient Goal Desired Activity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 her with 90-100% releif of migraines for at least 2 months. Jul, Thoracic spondylosis (ICD-10 - M47.814) Patient is not a surgical candidate at this time. Different treatment options were discussed in detail with patient in regards to patients condition. Patient is a candidate to proceed with a confirmatory left thoracic facet medial branch nerve block under fluoroscopic guidance, as previously discussed. Risks and benefits of procedure explained to patient; patient verbalizes understanding. Jul, Chronic pain (ICD-10 - G89.29) Continue medications as prescribed [facility] Other 02-10-2022 Evaluation note* Encounter Date Diagnosis Assessment Notes Treatment Notes Treatment Clinical Notes Jul, Other migraine without status migrainosus, not intractable (ICD-10 - G43.809) Patient is encouraged to follow up in 2 weeks as scheduled. Jul, Thoracic spondylosis (ICD-10 - M47.814) 53 year old female here for follow up status post left thoracic facet medial branch nerve block at T6, T7, T8 and T9 under fluoroscopic guidance. Patient reports 80% pain relief and improved walking, standing and daily functions for 6-7 hours following procedure. She voices continued complaints of mid back pain today as expected. Different treatment options were discussed in detail with patient in regards to patients condition. Patient is a candidate to proceed with a confirmatory left thoracic facet medial branch nerve block under fluoroscopic guidance. Patient would like to follow up with Dr Garcia as scheduled next week. We will discuss proceeding with injections in the future. Jul, Chronic pain (ICD-10 - G89.29) Continue medications as prescribed [facility] Other 01-19-2022 Evaluation note* Encounter Date Diagnosis Assessment Notes Treatment Notes Treatment Clinical Notes Jun, Subarachnoid cyst (ICD-10 - G93.0) I have discussed management options with the patient extensively. Her pain seems to be at the level of T8 which is where this lesion is and she is really failed to respond to most conservative treatments. She has failed respond to physical therapy in the past. Surgical treatment would be lysis of the arachnoid cyst in order to marsupialize it and have it equilibrate with the basic subarachnoid space. That is a fairly extensive surgery my recommendation is for her to have facet injections on that side first to see if she had at least temporary relief if she had temporary relief that I be more inclined to proceed with surgical intervention. Surgery of course was fraught with the risk of causing her chronic pain to begin with. I would hope her insurance company would understand the value of these diagnostic procedures prior to surgical intervention. [facility] Other 12-07-2021 Evaluation note* Encounter Date Diagnosis Assessment Notes Treatment Notes Treatment Clinical Notes May, Chronic pain (ICD-10 - G89.29) Continue taking medications as prescribed. May, Other migraine without status migrainosus, not intractable (ICD-10 - G43.809) 30 year old female here for follow up for chronic pain. She voices continued complaints of chronic migraines in the last week. She reports 90-100% relief of her migraines for the first 2 months following botox injections. She continues taking Sumatriptan for Migraine control. She feels pain can negatively impact her ADLs and sleeping pattern. Treatment options were discussed in detail with the patient. She is encouraged to proceed with botox injections as previously discussed. In the meantime, she can continue taking medications as prescribed. May, Mid back pain (ICD-10 - M54.9) F/u as scheduled for mid back pain. [facility] Other 10-22-2021 Evaluation note* Encounter Date Diagnosis Assessment Notes Treatment Notes Treatment Clinical Notes Mar, Left wrist sprain (ICD-10 - S63.502A) 30 y/o female here with complaints of left wrist and forearm pain which started 2 years ago during a work related accident. She states she has had 2 surgeries for her pain which have provided minimal pain relief. She is currently in OT which is not helping. I will add desensitization therapy. In the meantime will order a topical compound cream as needed. Mar, Extensor tenosynovitis of left wrist (ICD-10 - M65.842) Stable. 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 Mar, De Quervain's disease (tenosynovitis) (ICD-10 - M65.4) Stable, follow up as needed. [facility] Other 09-27-2021 Evaluation note* Encounter Date Diagnosis Assessment Notes Treatment Notes Treatment Clinical Notes Feb, Chronic pain (ICD-10 - G89.29) Proceed with treatment plan. Feb, Other migraine without status migrainosus, not intractable (ICD-10 - G43.809) 30 year old female here for follow up for chronic pain. She voices continued complaints of daily migraines with photosensitivity, nausea and vomiting. She states migraines can last a week at a time. She also complains of mid back pain which wraps around to the chest wall on the left. Botox for migraine control was performed today. In the meantime we will wait on the appeal for the denial related to the thoracic facet medial branch nerve block. I will consider a paravertebral nerve block in the future. Feb, Mid back pain (ICD-10 - M54.9) Patient was previously scheduled for a thoracic facet medial branch nerve block however this was denied by insurance, we have subsquently appealed this denial and await on insurance decision. If the appeal continues to be denied I will consider a paravertebral nerve block. [employer] Other Evaluation noteNort [employer] Other Evaluation noteNo InformationNort [employer] Other Evaluation noteNo assessment information available [facility] Work Phone: Evaluation note* Diagnosis Onset Date Resolution Status Chronic pain acute Other migraine, not intracta ble, without status migrainosus acute [facility] Work Phone: History general Narrative - Reported* Type Description Date Medical History Depression Medical History Back Pain Medical History torn tendons Larm Surgical History D&C x2 Surgical History EGD Surgical History Colonoscopy Surgical History oophorectomy Surgical History ovarian cyst Surgical History Right Ovary Removal 01/2019 Surgical History left wrist Surgical History tendon repair L forearm 11/30/20 Hospitalization History Child Birthx1 [facility] Other History [facility] - [facility] Discharge instructions Additional Instructions If your symptoms return/worsen or you develop any further concerns or symptoms please see your doctor or return to the emergency department immediately.[facility] Work Phone: Summary Purpose Family History No Family History Records Found Relationship Condition Age at Onset Recorded Date/T te Not Specified No pertinent family history Unknown Relationship Condition Age at Onset Recorded Date/T te Not Specified No pertinent family history Unknown father Hypertension Unknown Advance Directives No Advanced Directives Records Found Advance Directive Response Recorded Date/ Time Advance Directives No July 02, 2018 7:19pm Chief Complaint and Reason for Visit Chief Complaint Back Pain Chief Complaint 2 Month follow up af ter botox Reason for Visit Chronic pain Other migraine, not intractable, without status migrainosus Chief Complaint [address] Month [address] up af [address] botox right abd pain Reason for Visit Chronic pain Other migraine, not intractable, without status migrainosus Additional Source Comments INFORMATION SOURCE (unrecogn ized section and content) DATE CREATED AUTHOR 12/05/2017 [facility] [employer] DATE CREATED AUTHOR AUTHOR'S ORGANIZ ATION 12/11/2017 [facility] DATE CREATED AUTHOR AUTHOR'S ORGANIZ ATION 12/11/2017 [facility] DATE CREATED AUTHOR AUTHOR'S ORGANIZ ATION 12/12/2017 [facility] DATE CREATED AUTHOR AUTHOR'S ORGANIZ ATION 12/12/2017 [facility] DATE CREATED AUTHOR AUTHOR'S ORGANIZ ATION 01/14/2021 [facility] DATE CREATED AUTHOR AUTHOR'S ORGANIZ ATION 04/24/2021 [facility] DATE CREATED AUTHOR AUTHOR'S ORGANIZ ATION 11/24/2022 [facility] DATE CREATED AUTHOR AUTHOR'S ORGANIZ ATION 12/02/2022 [facility] DATE CREATED AUTHOR AUTHOR'S ORGANIZ ATION 10/27/2023 [facility] REASON FOR VISIT (unrecogniz ed section and content) BOTOX FOR MIGRAINE CONTROLBW CLEFT WRIST PAIN2 1/2 month follow up after botoxpain, backNo InformationLEFT THORACIC FACET MEDIAL BRANCH T6-7, T7-8, T8-9/ELFOLLOW UP AFTER LEFT THORACIC MBB2 1/2 MONTH FOLLOW UP AFTER BOTOX L THORACIC MBB T6-T7,T7-T8,T8-9BotoxONE WEEK FOLLOW UP AFTER THORACIC MBBleft thoracic facet medial branch radiofrequency ablation T6-T7, T7-8, T8-9LEFT MIDDLE FINGER BRUISED, SLAMMED IN DOOR LAST WEEKFOLLOW UP AFTER THORACIC FACET MEDIAL BRANCH RFA2 1/2 month f/u for botoxBOTOX FOR MIGRAINE CONTROLincrease back painTRIGGER TO LEFT THORACIC MUSCLES2 1/2 month f/u after botox2 1/2 MONTH FOLLOW UP AFTER BOTOXBotoxMID BACK PAIN- FOLLOW UP FOR BOTOXBOTOXTPI LEFT INTERSCAPULAR MUSCLESFOLLOW UP AFTER TPI TO THORACIC MUSCLESLEFT T6,7,8,9 THORACIC FACET RFABOTOX INJECTIONS FOR MIGRAINE CONTROL2 WEEK F/U AFTER THORACIC RFA2.5 month follow up after botox, Patient consents to be evaluated and treated via telemedicine, risks benefits and alternatives explained., Patient at home virtually seen from office. Patient unable to come to office today due to transportation issues, [employer] platform used for virtual visitbotox for migraine relief2 1/2 month f/u for Botox, Patient consents to be evaluated and treated via telemedicine, risks benefits and alternatives explained., Patient at home virtually seen from office.BOTOX FOR MIGRAINE CONTROL Care Teams (unrecognized sec tion and content) Team Status: Active Member Role Status Dates NITZA Marcos Primary Care Provider Active Team Status: Inactive Member Role Status Dates NITZA Marcos Primary Care Provider Active Mark Myrick MD Attending Provider Active Team Status: Inactive Member Role Status Dates NITZA Marcos Primary Care Provider Active Start: October 15, 2023 End: October 15, 2023 Mark Myrick MD Attending Provider Active Sta rt: October 15, 2023 End: October 15, 2023 Team Status: Inactive Member Role Status Dates NITZA Marcos Primary Care Provider Active Start: October 16, 2023 End: October 16, 2023 Oh Aapricio DO Emergency Provider Active Start: October 16, 2023 End: October 16, 2023 Goals (unrecognized section and content) Goals may be documented in a n alternate section FOR RECORDS PERTAINING TO PATIENTS WHO ARE OR HAVE BEEN ENROLLED IN A CHEMICAL DEPENDENCY/SUBSTANCEABUSE PROGRAM, SOME INFORMATION MAY BE OMITTED. This clinical summary was aggregated from multiple sources. Caution should be exercised in using it in the provision of clinical care. This summary normalizes information from multiple sources, and as a consequence, information in this document may materially change the coding, format and clinical context of patient data. In addition, data may be omitted in some cases. CLINICAL DECISIONS SHOULD BE BASED ON THE PRIMARY CLINICAL RECORDS. [employer] provides no warranty or guarantee of the accuracy or completeness of information in this document.
== END 2024-04-03 08:09 | disposition home or self-care (01) ==
PROVIDERS: PCP Nurse Practitioner Family; Visit Provider Nurse Practitioner Family
DX: M77.12 Lateral epicondylitis, left elbow (principal); M65.4 Radial styloid tenosynovitis [de Quervain]; S63.502A Unspecified sprain of left wrist, initial encounter; L03.114 Cellulitis of left upper limb; G56.32 Lesion of radial nerve, left upper limb; M65.842 Other synovitis and tenosynovitis, left hand
CPT/HCPCS: 78315; A9503

== ENCOUNTER 2024-05-06 14:35 | Outpatient (OUT) | payer OTHER, SELFPAY ==
--- NOTE | 2024-05-06 | CONS_ITS ---
CONSULTATION DATE: 05/06/2024 TO: MARCIN Brown at [facility] HISTORY: Patient returns today complaining of persistent pain in her left forearm. She reports the pain as being at least 5/10, sharp in certain areas. She denies any change in bowel and bladder habits or new sensorimotor changes in her upper extremities. Her MACK on today?s visit is 27%. She was denied a left stellate ganglion blockade by [facility]. RECOMMENDATIONS: I have recommended she consider a trigger point injection using a combination of Marcaine and lidocaine to the affected area of her left forearm, just proximal to her surgical scar. I have gone over the details of the procedure with the patient. All her questions were answered. She agrees to proceed with the outlined plan. As part of providing excellent, safe, comprehensive care, the following was completed at our patient's visit: 1. A medication reconciliation and review to ensure accurate knowledge of current/active medications, including asking our patients to inform us about any [id number] medications or herbal remedies/nutritional supplements/alternative remedies. 2. A review to specifically ensure our patients have had annual screening for: elevated body mass index (BMI, see intake chart for exact total), tobacco use, screening for depression, and screening for unhealthy alcohol use. When screening is concerning, patients are provided with education and the specific recommendation to discuss the concerning health issue and treatment options with their primary care provider. [employer]
--- OUTSIDE RECORDS SUMMARY | 2024-05-06 14:57 | XMS_ITS | CCD ---
Author Organization [facility] Care Team Providers Care Staff Research Scientist Name Role Phone Turowski, Mani Unavailable Unavailable [...] Unavailable KAMRAN WALLIS (MARCIN-C) Unavailable Unavai lable Rosendoowski, Mani Unavailable Unavailable UNKNOWN, PROVIDER Unavailable Unavailable Petrilla, Andrés Unavailable Unavailable PETRILLA, ANDRÉS Unavailable Unavailable PETRILLA, ANDRÉS Unavailable Unavailable GAICH, POLINA A Unavailable Unavailable GAICH, POLINA A Unavailable Unavailable BONNIE, ABDULAZIM Attending Unavailable BONNIE, ABDULAZIM Surgeon Unavailable BONNIE, ABDULAZIM Admitting Unavailable JULIUS, MIRIAM Primary Care Unavailable JULIUS, MIRIAM Referring Unavailable ME Procedure Practitioner Unavailab le BONNIE, ABDULAZIM Attending Unavailable BONNIE, ABDULAZIM Surgeon Unavailable BONNIE, ABDULAZIM Admitting Unavailable JULIUS, MIRIAM Referring Unavailable JULIUS, MIRIAM Primary Care Unavailable ME Procedure Practitioner Unavailab salvador Myrick, Mark Unavailable Dorina Latif Unavailable Kevin Garcia Unavailable Arely Jackman Unavailable DeviTiki Unavailable WILLIAM, TIKI Primary Care Unavailable WILLIAM, TIKI Attending Unavailable WILLIAM, TIKI Admitting Unavailable LAKSHMIPATHY ., NARENDRANATH Attending Ada vailable WILLIAM, TIKI Primary Care Unavailable LAKSHMIPATHY ., NARADAM Admitting Ada vailable PRACHI ., DR DIMPLE [...] Attending Unavailable WILLIAM, TIKI Primary Care Unavailable MARCIN MEJIA Consulting UnavailMAURO Lr Unavailable TANI Jones, SHALA Attending Unavailable WILLIAM, TIKI Primary Care Unavailable TANI Jones, SHALA Admitting Unavailable DR MAURO POSADAS V Consulting Unavailable MARCIN MEJIA Consulting Unavailoneida e WILLIAM, TIKI Primary Care Unavailable MIRIAM REEVES Attending Unavailable MIRIAM REEVES Admitting Unavailable RAMEZ, MARK Attending Unavailable WILLIAM, TIKI Primary Care Unavailable RAMEZ, MARK Admitting Unavailable WILLIAM, TIKI Primary Care Unavailable WILLIAM, TIKI Consulting Unavailable WILLIAM, TIKI Attending Unavailable WILLIAM, TIKI Admitting Unavailable WILLIAM, TIKI Consulting Unavailable WILLIAM, TIKI Primary Care Unavailable MILO Jones, DR SOLANO Attending Unavailable MILO Jones, DR SOLANO Admitting Unavailable WILLIAM, TIKI Consulting Unavailable WILLIAM, TIKI Attending Unavailable WILLIAM, TIKI Admitting Unavailable WILLIAM, TIKI Primary Care Unavailable Han Arnold Consulting Unavailable KEVIN JAMIL Attending Unavailable DR MAURO POSADAS V Consulting Unavailable OMERO, AHMAD Admitting Unavailable TIKI THOMAS Primary Care Unavailable OMERO, AHMAD Consulting Unavailable TIKI THOMAS Attending Unavailable TIKI THOMAS Admitting Unavailable TIKI THOMAS Primary Care Unavailable DARYL NICOLE Attending Unavailable NITZA Thomas Keren Primary Care Provider MD Mark Myrick Attending Provider NITZA Thomas Primary Care Provider DO Oh Aparicio Emergency Provider [phone] Tiki Thomas Primary Care Unavailable Mark Myrick Attending Unavailable Mark Myrick Admitting Unavailable Oh Aparicio Attending Unavailable Oh Aparicio Admitting Unavailable Tiki Thomas Primary Care Unavailable KRANTHI ACHARYA Attending Unavailable KRANTHI ACHARYA Admitting Unavailable Provider, None Primary Care Unavailable Allergies Allergy Classification Reported Allergen(s) Allergy Type Date of Onset Reaction(s) Facility Penicillins (antibiotic) (1 source) Penicillin; Translations: [PENICILLIN] Drug Allergy 0 [facility] Repository (20 sources) Bee/Wasp/Ant venom Propensity to adverse reactions localized reaction [facility] [employer] Other (20 sources) Penicillin Drug Allergy [facility] [employer] Other (5 sources) Penicillins; Translations: [PENICILLINS] Drug allergy (disorder) 9 [facility] Repository (4 sources) BEE VENOM PROTEIN (HONEY BEE); Translations: [BEE VENOM PROTEIN (HONEY BEE)] Propensity to adverse reactions to drug (disorder) 5 localized reaction [facility] Repository (1 source) Penicillins Drug allergy (disorder) 4 [facility] Repository Medications Current Medications Medication Drug [...] Orally Twice a day Active Thyroid (Pork) ([place] Thyroid) 90 mg tablet (1 source) Start: 12-07-19 take 1 tablet by mouth once daily Thyroid (Pork) ([place] Thyroid) 90 mg tablet Active 90 MG PO Daily December 06, 2022 12:00am thyroid (intermediate) 90 mg oral tablet (2 sources) Start: 12-07-19 take 1 tablet by mouth once daily Thyroid (Pork) ([place] Thyroid) 90 mg tablet Active 90 MG PO Daily December 06, 2022 12:00am Completed/Discontinued Medications Medication Drug Class(es) Dates Sig (Normalized) Sig (Original) acetaminophen 325 mg / HYDROcodone bitartrate 5 mg oral tablet (3 sources) Opioid Agonist Start: 01-18-2020 End: 07-13-2021 take 1 tablet by mouth every four to six hours Hydrocodone-Acetam inophen ([place]) 5-325 mg Tablet Discontinued 1 TAB PO [...] 2018 1:00am January 15, 2020 8:18am levonorgestrel 0.371744 mg/hr intrauterine system (3 sources) Progestin, Progestin-containin [...] 16, 2020 12:00am January 19, 2020 3:47pm CELSOVE1 Amitriptyline HCL 2%, Capsaicin 0.025%, Clonidine HCL 0.23%, Gabapentin 6%, Lidocaine HCL 5% (20 sources) Start: 04-08-2021 CELSOVE1 Amitriptyline HCL 2%, Capsaicin 0.025%, Clonidine HCL 0.23%, Gabapentin 6%, Lidocaine HCL 5% as directed Topical rub 1-2 grams every 6-8 hours as needed for 30 days Mar, Not-Taking/PRN Start: 04-08-2021 CELSOVE1 Amitr iptyline HCL 2%, Capsaicin 0.025%, Clonidine HCL 0.23%, Gabapentin 6%, Lidocaine HCL 5% as directed Topical rub 1-2 grams every 6-8 hours as needed for 30 days Mar, Not-Taking Start: 04-08-2021 Start: 04-08-2021 CELSOVE1 Amitr iptyline HCL 2%, Capsaicin 0.025%, Clonidine [...] Onset: 11-13-2017 Other aftercare (1 source) Other intermediate designer (current) drug therapy; Translations: [OTH USP CURRENT DRUG THERAPY] Onset: 11-14-2022 Episodic Other [...] Test Name Value Interpretation Reference Range Facility Coding Summaryon 05-03-2024 Coding Summary HTMLBase 64 WoutlzvrILi7oNk+PGhlYWQ +AT3PWIBnG13znAPwsZ7oW8 NMTElOSywgQVBQTElOSyIgb wBlPT2kmBIaSSKb IC8+KI3fTKAdOvxwcFUgv1L 0wFE9V03vkc3aRKgtbAH9XN QlCsIjsnfji4eiaWb0LAhmW mluOyBt LXGtsJ32SJK2bO13Ua51sCS qqFBso8edjUs5QnBwINHsGU S1fLyqRKjsq5LqMEVxE73ds ORvs0H9 UVVsaZrtcJSdNjGgcWE4vG9 eCKrbwchcb9qkaltjFbh2ss 97eMWao9D0nCW8N0BapdW6Z GJvbGQg YvfreRFFeO8krzaer5tswpo sTkUoILKeBXm2OTz9MUFwiP jmDrWdYI64JJU6YHWrbqCiV 2FsLWFs lDvpFtP3l9W8Yi1SE3IGSwf yB1LPMNHDJOmovUF+PC90cj 17J3OlChljScj2EUWbUCI0u OY1fI5h WRWdSYhpt4Y9pYD9W3HyvxA mrl2eo8ylQUFbDLfgC85kcA Dpw3Q4JWWpyBQ6DVTooSwpK iBzaG93 Oyc+SDEklAsqr3JyWhpph4x vs6mfaGz0EjrwAPQmonKeoI cyNPL6r8OnRu4aOHElxBG3b KL5lU5c YaTmHwY6ZCwaR410MoUfaHF xKhdpJ51pX1PwbXN+PHRyPj e8GOWpgEohJK8hK9VdKWDyy mctbGVm oKydIQ8iMGBqyescYFDjgP3 iVWMzA1n2TkXeDbU1NKhsI7 DdCTPmtjvoEe67bF0dDbMpP hT3MIij Y4FspxG2RINzaYXoCOslKDS 9X39oo5S7GYNvCRReIAG0gO R4lZ9tnNmidtatiRShaEwig mVydGlj NEsmROgbA684KAAoeWpcRrS vZGluZyBEYXRlOiAgMTEvMT YvMjAyNDwvdGQ+HXZfGJR4q WxlPSAn lDSrYQqgXn2ayXapqGebDN6 sOKAkkrhiCQTiyQ8sIWPjjL WqlSdjYF9yQDSrdjgho834A iAxMHB0 ABDrnZSkX3DmnY3tQsCsUSQ zWTHrP8WsqQKaPRaxW689ZQ tmLbD3HMDndcDgR7CbSDYfk WduOiB0 w4T1Ji6Po0IupmniJ1YquSU rOrPoQqesPKs4Z2WnMrolkX I+OS55EILwAH33YEv6POO7a WxlPSdi YTHzO2ErmB3tStDeRBXiTQJ kOyc+PHRhYmxlIHdpZHRoPS wvXHLnMzCesXioAN4iVh0mM GVyLWNv zBagwCTrWmOdh0voUJEtUPy nZA7ozZatC9XgsBI4OPUls7 x6Tu87Q37vI6HkqYS+PGNvb OL2zOX3 bY1oZfLnGgB7RAaeY226NkI mrKPrScckj1kxv9pniDv0Yn P7GIJfubZnpKnnXYO9n1PoZ e57F54v IHdpZHRoPSIxNSUiIHZhbGl zui5aaF5zJa6+GCVyyKO0uP G9jO3xHfIcUnN6UVuyN461S nRvcCIv Leccn2vid1pvhKy2GqGpFYX fliEpgQgmGUV1b9DoQg24X0 HvtBxno2WfQnd6di42xAWkn 6O9fYD0 T0QyLSCychqvvSDnrRbsPP8 nEURtejotGURwnQ4zFPBoL4 s8AsNjMuN0DWopJ9DwyjS8R GJvbGQg GMIpsJOBoT2zojrwi2ohovt aQlYoLKMwRCv1DLp9ZTGwwZ tuGdXvHVO7NnF7ZUI2oTHbv F7djUyr hrmryE6bGvg+BZS1xSLpeRC UWR4wFkljnVK+ZHNiJCI3iG npYNfrDVUiiR1dUSDfN4u9L iAwLjA1 FDyrC1WtadM5MLLuuDFsPMX umHLOjN5mmrmap1rlbiieIv PbEMDkUHp1XRj2ZKIziPnvX iBsZWZ0 IyV9OIO2fHVtgT9ijLypwrh bnN5yNff+QovwyTxlNPK3LD a3H3VtTjw6TRLurHtbVI7ue GFkZGlu Zj1vhQltpZzyBS6wYDTmzbx mt977YxJgo8nhPSKlhVAuPW peIIT9B19rl8U9LGIwSJPrP GU2tWF6 dW9piOtsqtcisTBtdBtacmW dhEzcJAvuQFmpI906JKKzkN ccRvDzVJk0I8NxPuz6RJYiv TlxBX0c hFDuCQkeRk9yaFuzsMdpGC5 zMUSupvkby865WqBnq7iaZR UvpRUqAVdqYSZ5R86cc4P4F CMwMDAw ZSP8wBV1fG3xoMfryugtaAN mdDsgdmVydGljYWwtYWxpZ2 65QWJpuYiaCaQzySy8Q6IqH xi3MQDu oRyxKR4kiRMfYYcpPr7axTc toIozJI0zJAMdkuqwz165Iu Dgz7hnROSuhWCwGEcgNUM8W 08zp8E1 XXTmWAQcUFJ8xMV9yQ4clSq nbjogbGVmdDsgdmVydGljYW myFQdeI959TZOyvCizJePax GllbnQg IZcyFRf8E0HcWzuulMK+PC9 8JMCxQA54tNFrdIDhu9dddE y0LlJrQUVnKDK4uMpyHMqhm 3JkZXIt C31ejDHgm1G5JKHmkDhfwHM uBiCkvTW4sL4lUNskkmzkk8 tuxdehRyhak6bjtm62gR13B 29sIHdp ZHRoPSIzMCUiIHZhbGlnbj0 xcC3bWh9+EWGdaRW5gVC1mT 0tQMXaSnL9TIjkA473EdOfq CIvPjxj d9uos5iwaTl8JpU3JSDkcsE wuBnyWZP7l7ZuVe64O05vVF dpZHRoPSIyMCUiIHZhbGlnb d2kaZ6u Ii8+ZVGxuQL1yLX0wW8vSbQ tXcF5PNscL463PfWtaVCpFp xeA23jM2OroIF+CAOvYjm3N CBzdHls VA6ndYCaKQfoQu4aVRG4UyD sOvPaKClrG4DbQGDckxobgp qldCR7LHFeMYHmhR87Ac2rl DogMTBw aDNAdW7fpoijv8gpfiixYcU eCXCfNXk6JXl0WLDthBunWb TuRYW6ApP1NGM6sYPmfO2xe Glnbjog iF1kS2CzWBTswphqUz39bU3 fPwBdHxP3WVhyTxj+TUlMTE VSLCBCUklUVEFOWSBQQUlHR TwvdGQ+ FQCgYJV5eLojEWapODMmpI4 iLVSuZ7h3YpLcKfF8INhmJ8 ArVZFuqxdoDc50mP1nDoNxM pA8KWhc W7PdapN3XGZtmEJwONfcDCZ 0Z92vb9O4GYTmTLOoOUO4dO M1sZ6anTurjbdutMZboPdff mVydGlj HEsyIIepG083EXKxuHerKfD 9KeZjUeY9GKY7P9KxTdc7PA FbxWlkHX6otSIgVIgcTs9cq WdodDog MG1iDVGenqhqPMUifO3xYDT dlQUrlDmtTH7yVNApweprq8 19ZmIrKXP9PNCzfNGqU9Uky W2kWaTv DXOkXHJoI2YhuGFqNOozS98 2FOptUbQ4IOMndaRcF5GzEQ UhgAdoAoR9c5Q4Xl5dGTYGO WFyczwv dGQ+SCOdGYS6bCbhNWbgQWS ehR4rUBOfW2r3HoHmAzF5UG lrZ1MpXOZulroyXp77oF7aU iAwLjA1 BUkqY7HbxhH7DCIofTKqXBs fEAW3L86ax5P0BIDcLVWeHE G5cTF6nJ9ceWegzaefiWHyf DsgdmVy xZnaGZbyLHsrR776KQMteMj nPkZFTUFMRTwvdGQ+PHRkIH K9wIgpGNjoSJUjmG3yNVXiA 2t3CnHu YpX6YAdmO2HwOOPaebhuSu0 7kI6xJkQfWzM1WQqjO1Nzap D8XDIfdAPjHTacMNM0E72gx 5S4CQUr BFOlFFW7vLD0jM6ovUoukhp gbGVmdDsgdmVydGljYWwtYW rqH038UWBukMriJg8FKC45V Z83S8Fc PjwvdGFibGU+PHRhYmxlIHd pZHRoPScxMDAlJyBzdHlsZT 1rLo4lPQEbAIVknDmywQOeF dJvl4wr XMDgAHzrNA3seVyjW3IwaSF 6NZCkp4e3Bg01O16qK0NwsQ A+TMOeeUE0kYI7mG1zNvPaI eA8HLrn Z020HmZedRGpFgokn7zuu6v jvBb4ToFbVKXjfdOnfAjeML Y4c3WxUg76R38nRHliGRCqZ SIyMCUi HLTicEdecr7obV5yHf3+PGN etGD3kPV1uF1jWyAnJeF1SA vtN226TcUzbHBnYvofD35eY 3JvdXA+ TSUcRmx6CLWeiXveJH3ppVA sZYqfEl9tQOL3OgAxRsYpBM grW3HeMRDvnwqlhwhvxCG3X DAuMDUw oY91Ll0zyDiqJc3jGZVgPTB 7MHConSYsA8JgeX4xXgLwAQ KmGXKuN5BpsYBjMHjmY734I GxlZnQ7 XKHzbnSwF8MpYJKxiShgHdK 3v6B0Ue6RfOybiWDaZJ4nWi UbPMl4S7PkEzc2HEWaaWzaU Q6jmMNt CFuhIb7tfVxqbXctDB5iLBK lhubcp837XaGwa4muHNNgaC XsHWomUZH8D03ot5Q3UIToP DAwMDA7 uBB9lS4brZotvortaKCwqCc zckSjtHyqDIaaMEfnY108KO GfbObpBrEEEvm1L2OdBvb1N CBzdHls DD7stTHwSHrsXq2otHmgeBo oMD4aRDNpfinck141SoNcv6 hvBXPmtNEcRBxvNDC8K93dx 7Q4FFVt AYUtUUS2fHM0gL7elBvfysv gbGVmdDsgdmVydGljYWwtYW yoN711ITMkhKxkSu6CPtz3I 7PwJov7 QCVvsKarSY4zuBYrKHxzGa3 feTdrxIkmEN9oVDNgsqovb7 25IuUti5jaLMHegTLgPJoxO BT3N61f j8B7RIBxBCEyBLD4kFV5cV2 hbGlnbjogbGVmdDsgdmVydG xuHQfvZXhsV550KFTjbZapJ lBheWVy OjwvdGQ+JV82tc86U0XdVrl rYsd4TYUvOAY9yPJ7vG7qIL MwEQhbx7K3sBF6U9XpoxMaa c2be9mx YXB (more content not included)... Normal [facility] ED Clinical Summaryon 2023 ED Clinical Summary [facility] ? Urgent Care [address] [place] [address] Clinical Summary PERSON INFORMATION Name: TORREY GAYLE Age: 33 Years Sex: FEMALE : 1990 MRN: Acct#: Visit Reason: Medical screening exam; [facility] F/U - LEFT ARM INJURY Arrival: 04/25/2024 16:23:07 Discharge: 04/25/2024 17:25:00 LOS: 000 01:02 Check In: 04/25/2024 16:23:07 Checkout: 04/25/2024 17:25:00 Address: [address] [place] [address] PCP: Provider, None PROVIDER INFORMATION Provider Role Assigned Unassigned Deniz Okeefe PA-C ED PA 04/25/2024 16:26:05 Nitesh RN, Amanda ED Nurse 04/25/2024 16:34:34 VITALS INFORMATION Vital Sign Triage Latest Temperature Tympanic Temperature Temporal Artery Pulse Rate O2 Sat 98 % 98 % Respiratory Rate Blood Pressure /88 mmHg /88 mmHg MEDICAL INFORMATION Medications Given: Allergy Information: No known allergies PHYSICIAN DOCUMENTATION DISCHARGE INFORMATION: Discharge Disposition: Home Discharge Location: Home PATIENT EDUCATION INFORMATION Instructions: Follow-Up: With: Address: When: Return to this practice Comments: as scheduled in 3 months DIAGNOSIS: Cellulitis of left upper limb; De Quervain's tenosynovitis, left; Disorder of left radial nerve; Lateral epicondylitis of left elbow; Left wrist sprain; Other synovitis and tenosynovitis, left hand Patient Understands: Yes - Patient/family/caregive r verbalizes understanding of instructions given Comment: Normal [facility] ED Patient Summaryon 024 ED Patient Summary [facility] ? Urgent Care [address] [place] [address] PATIENT DISCHARGE INSTRUCTIONS Patient Information Name: TORREY GAYLE Age: 33 Years Date of : 1990 Reason For Visit: Medical screening exam; [facility] F/U - LEFT ARM INJURY Arrival Time: 04/25/2024 16:23:07 Primary Care Physician: Provider, Nicolette Attending Physician: KRANTHI ACHARYA Comment: Patient Education With: Address: When: Return to this practice Comments: as scheduled in 3 months Medication Information: The exam and treatment you received today in the [facility] Emergency Department were for an urgent problem and are not intended as complete care. It is important for you to follow up with a doctor, nurse practitioner, or physician?s registrar assistant for ongoing care. If your symptoms become worse or you do not improve as expected and you are unable to reach your usual health care provider, you should return to the Emergency Department, we are available 24 hours a day. For those patients who have received Radiology results, the interpretation of your X-ray as given to you by our Emergency Department physician is only a preliminary report. The Radiologist will review your films and if there is a change in the diagnosis you will be notified by phone. Please make sure you have provided a working phone number so we can reach you if necessary. In the event that you had a lab culture while you were a patient in the Emergency Department, you will be notified by phone if there is a need to change your antibiotic. Please make sure you have provided a working phone number so we can reach you if necessary. [facility] Emergency Department has provided you with a complete list of medications post discharge. Please inform your pharmacist/provider of your visit and for further instruction on these medications. Any specific questions regarding your chronic medications and dosages should be discussed with your primary care physician(s) and/or pharmacist. Additional medications on your home medication list not specifically addressed. Please contact the ordering physician if you have questions about these medications. amphetamine-dextroamphe tamine (amphetamine-dextroamph etamine 15 mg oral tablet) 1 tab(s) Oral (given by mouth) once a day (in the morning). metoprolol (metoprolol succinate 25 mg oral tablet, extended release) 1 tab(s) Oral (given by mouth) every day. 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 Do not drive a car. ? Do not operate machinery such as power tools, lawn mowers, drills, sewing machines, or stoves ? Avoid alcoholic beverages and drugs for allergies, nerves, or sleep ? Do not make important personal or business decisions or sign any legal documents Reason for Visit: Medical exam- [facility] -to establish with new POR, initial injury Lt forearm 04/07/2019 twisted by patient while doing care-subsequent surgery, describes increasing pain/ tingling X months dorsum forearm/thumb, tylenol daily Allergies: Substance Reaction Symptoms Type Comments No known allergies Drug Vital Signs: Vitals and Measurements this Visit (last charted value for your 04/25/2024 visit) Vital Signs This Visit Temperature Oral: 36.6 DegC Peripheral Pulse Rate: 59 bpm Respiratory Rate: 18 br/min Systolic Blood Pressure: 124 mmHg Diastolic Blood Pressure: 88 mmHg SpO2: 98 % Oxygen Therapy: Room air Blood Pressure Method: Automatic Measurements This Visit Height/Length Measured: 167.64 cm Weight Measured: 63.96 kg Weight Dosin.960 kg Body Mass Index: 22.76 kg/m2 BSA Measured: 1.73 m2 Problems List: Problem Onset Comments Cellulitis of left upper limb De Quervain's tenosynovitis, left Disorder of left radial nerve Irregular heart rate Lateral epicondylitis of left elbow Other synovitis and tenosynovitis, left hand Major Tests and Procedures: The following procedures and tests were performed during your ED visit. Laboratory Radiology Cardiology Viruses or Bacteria What?s got you sick? Antibiotics only treat bacterial infections. Viral illnesses cannot be treated with antibiotics. When an antibiotic is not prescribed, ask your healthcare professional for tips on how to relieve symptoms and feel better. Usual Cause Illness Viruses Bacteria Antibiotic Needed Cold/Runny Nose NO Bronchitis/Chest Cold (in otherwise healthy children and adults) NO Whooping Cou (more content not included)... Normal [facility] Urgent Care Note- Provideron 04-25-2024 Urgent Care Note- Provider Patient: TORREY GAYLE Age: 33 years Sex: FEMALE : 1990 Associated Diagnoses: Disorder of left radial nerve; Cellulitis of left upper limb; De Quervain's tenosynovitis, left; Other synovitis and tenosynovitis, left hand; Lateral epicondylitis of left elbow; Left wrist sprain Author: Deniz Okeefe PA-C History of Present Illness OCCUPATIONAL HEALTH FOLLOW-UP Date of injury: 04/07/2019 Claim #: [id number] Employer: [employer] Mechanism of Injury: Turning a patient and arm was grabbed her wrist. Diagnosis: Lesion of radial nerve, left, cellulitis left upper limb, radial styloid tenosynovitis, other synovitis and tenosynovitis left hand, lateral epicondylitis left elbow, sprain left wrist This is a 33-year-old who presents to occupational health to establish a new physician of record after her previous physician of record is no longer practicing at the [facility]. 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 She had immediate pain. A co-worker actually had to help free her from the patient. She completed her shift of work, as she only had 20 minutes left of her shift, but reported the following day to get evaluated because of persisting pain. X-rays were non acute. She followed with Occupational Health at [facility]. She was referred to Dr. Nicole with persisting symptoms. She had injections which were not particularly helpful and then proceeded to have 2 surgeries. She has now been seeing pain management for the past 2 years in [place]. She has tried PT, creams, injections, medications including OTC Motrin/Tylenol, Lyrica, Neurontin, muscle relaxers and Mobic/Celebrex all without good relief and so she takes no medications for this. She states her most recent testing was a bone scan done on 04/03 in [place] and it was reported as normal. She has an upcoming extent of disability exam. She describes pain that extends from her axilla to her wrist and hand. She reports temperature changes. Her hand on that side is always cooler than the other side. She has tingling and numbness that comes and goes to her left thumb. Luckily she is right handed. She reports intermittent cellulitis to that forearm that will present with intense redness and warmth with pain that is generally treated with prompt Keflex. She said her arm can be pale at times, appear more purplish than the rest of her skin and have swelling. She states she wakes with 8/10 pain in the morning. It lessens to some degree throughout the day, but then will worsen again at night. [facility] with her left side. Her job has now been eliminated. She states she really cannot and has never been able to lift more than 5 lbs with that arm. 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 With this she reports elbow pain seems to be worsening. 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 She states she has had EMG's which have been normal in the past and she's anxious to see what pain management recommends when she sees them again on May 06. There are no fevers, chills or malaise. No other joint pains or myalgias. No other numbness, tingling or weakness. + skin changes as mentioned above, no skin rashes or lesions. There are no other associated symptoms. It is made worse with any use of that arm and with any attempts of lifting with that arm. Nothing else makes the symptoms better or worse. Symptoms are described as sudden onset, moderate in nature and persisting. Health Status Allergies: No active allergies have been recorded.. Past Medical/ Family/ Social History Medical history: No active or resolved past medical history items have been selected or recorded.. Surgical history: No active procedure history items have been selected or recorded.. Family history: No family history items have been selected or recorded.. Social history: Social & Psychosocial Habits No Data Available . Problem list: No qualifying data available . Physical Examination Vital Signs Vital Signs 04/25/2024 16:28 EST Temperature Oral 36.6 DegC Peripheral Pulse Rate 59 bpm LOW Respiratory Rate 18 br/min Systolic Blood Pressure 124 mmHg HI Diastolic Blood Pressure 88 mmHg HI SpO2 98 % Oxygen Therapy Room air BP Method Automatic . GENERAL: Awake, alert and oriented to person, place and situation. Well nourished, well developed, non toxic, NAD. NECK: No bony TTP, normal range of motion, no meningismus, trachea is midline. No anterior or posterior lymphadenopathy. CARDIOVASCULAR: Regular rate and rhythm. +S1 +S2. No murmurs or rubs. RESPIRATORY: Clear to auscultation bilaterally without rales, rhonchi or wheeze. EXT (more content not included)... Normal [facility] Urgent Care [place] 024 Urgent Care Record [facility] ? Urgent Care [address] [place] [address] PATIENT DISCHARGE INSTRUCTIONS Patient Information Name: TORREY GAYLE Age: 33 Years Date of : 1990 Reason For Visit: Medical screening exam; 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 Do not drive a car. ? Do not operate machinery such as power tools, lawn mowers, drills, sewing machines, or stoves ? Avoid alcoholic beverages and drugs for allergies, nerves, or sleep ? Do not make important personal or business decisions or sign any legal documents With: Address: When: Return to this practice Comments: as scheduled in 3 months Medication Information: The exam and treatment you received today in the [facility] were for an urgent problem and are not intended as complete care. It is important for you to follow up with a doctor, nurse practitioner, or physician?s registrar assistant for ongoing care. If your symptoms become worse or you do not improve as expected and you are unable to reach your usual health care provider, you should return to the Emergency Department, we are available 24 hours a day. For those patients who have received Radiology results, the interpretation of your X-ray as given to you by our Urgent Care physician is only a preliminary report. The Radiologist will review your films and if there is a change in the diagnosis you will be notified by phone. Please make sure you have provided a working phone number so we can reach you if necessary. In the event that you had a lab culture while you were a patient in the Urgent Care, you will be notified by phone if there is a need to change your antibiotic. Please make sure you have provided a working phone number so we can reach you if necessary. [facility] has provided you with a complete list of medications post discharge. Please inform your pharmacist/provider of your visit and for further instruction on these medications. Any specific questions regarding your chronic medications and dosages should be discussed with your primary care physician(s) and/or pharmacist. Additional medications on your home medication list not specifically addressed. Please contact the ordering physician if you have questions about these medications. amphetamine-dextroamphe tamine (amphetamine-dextroamph etamine 15 mg oral tablet) 1 tab(s) Oral (given by mouth) once a day (in the morning). metoprolol (metoprolol succinate 25 mg oral tablet, extended release) 1 tab(s) Oral (given by mouth) every day. Visit Information Allergies: Substance Reaction Symptoms Type Comments No known allergies Drug Vital Signs: Vitals and Measurements this Visit (last charted value for your 04/25/2024 visit) Vital Signs This Visit Temperature Oral: 36.6 DegC Peripheral Pulse Rate: 59 bpm Respiratory Rate: 18 br/min Systolic Blood Pressure: 124 mmHg Diastolic Blood Pressure: 88 mmHg SpO2: 98 % Oxygen Therapy: Room air Blood Pressure Method: Automatic Measurements This Visit Height/Length Measured: 167.64 cm Weight Measured: 63.96 kg Weight Dosin.960 kg Body Mass Index: 22.76 kg/m2 BSA Measured: 1.73 m2 Problems List: Problem Onset Comments Cellulitis of left upper limb De Quervain's tenosynovitis, left Disorder of left radial nerve Irregular heart rate Lateral epicondylitis of left elbow Other synovitis and tenosynovitis, left hand Patient Education Viruses or Bacteria What?s got you sick? Antibiotics only treat bacterial infections. Viral illnesses cannot be treated with antibiotics. When an antibiotic is not prescribed, ask your healthcare professional for tips on how to relieve symptoms and feel better. Usual Cause Illness Viruses Bacteria Antibiotic Needed Cold/Runny Nose NO Bronchitis/Chest Cold (in otherwise healthy children and adults) NO Whooping Cough Yes Flu NO Strep Throat Yes Sore Throat (except strep) NO Fluid in the middle ear (otitis media with effusion) NO Urinary Tract Infection Yes Antibiotics Aren?t Always the Answer www.cdc.gov/getsmart GET SMART Know When Antibiotics Work U.S. Department of Health and Human Services Centers for Disease Control and Prevention February 2014 [facility] Alanine aminotransferase [En zymatic activity/volume] in Serum or PlasmaOrdered By: Oh Aparicio on 10-16-2023 ALT [Catalytic activity/Vol] 20 U/L [facility] Albumin [Mass/volume] in Ser um or Plasma by Bromocresol green (BCG) dye binding methoOrdered By: Oh Aparicio on 10-16-2023 Albumin BCG dye [Mass/Vol] 4.3 g/dL 3.5-5.7 [facility] Alkaline phosphatase [Enzyma tic activity/volume] in Serum or PlasmaOrdered By: Oh Aparicio on 10-16-2023 ALP [Catalytic activity/Vol] 54 U/L 34-104 [facility] Aspartate aminotransferase [ Enzymatic activity/volume] in Serum or PlasmaOrdered By: Oh Aparicio on 10-16-2023 AST [Catalytic activity/Vol] 17 U/L 13-39 [facility] Basic Metabolic Panelon 09-18 Anion gap [Moles/Vol] 12.0 mmol/L Normal 6.0-15.0 [facility] Comment on above: Order Comment: helga r Performed By: #### B MP, LIPASE, SCAN CBC, HEPATIC #### [facility] [address] Calcium [Mass/Vol] 9.4 mg/dL Normal 8.6-10.3 [facility] Comment on above: Order Comment: helga r Performed By: #### B MP, LIPASE, SCAN CBC, HEPATIC #### [facility] [address] [place] [address] [place] Chloride [Moles/Vol] 103 mmol/L Normal 98-107 [facility] Comment on above: Order Comment: helga r Performed By: #### B MP, LIPASE, SCAN CBC, HEPATIC #### [facility] [address] [place] [id number] [place] CO2 [Moles/Vol] 30.1 mmol/L Normal 21.0-31.0 [facility] Comment on above: Order Comment: helga r Performed By: #### B MP, LIPASE, SCAN CBC, HEPATIC #### [facility] [address] [place] [id number] [place] Creatinine [Mass/Vol] 0.67 mg/dL Normal 0.60-1.20 [facility] Comment on above: Order Comment: helga r Performed By: #### B MP, LIPASE, SCAN CBC, HEPATIC #### [facility] [address] [place] [id number] [place] Creatinine Clr Calc Pharmacy 110.48 Normal [facility] Comment on above: Order Comment: helga r Performed By: #### B MP, LIPASE, SCAN CBC, HEPATIC #### [facility] [address] GFR/1.73 sq M.predicted MDRD (S/P/Bld) [Vol rate/Area] mL/min/{1.73_m2} Normal [facility] Comment on above: Order Comment: helga r Performed By: #### B MP, LIPASE, SCAN CBC, HEPATIC #### [facility] [address] Glucose [Mass/Vol] 75 mg/dL Normal 70-100 [facility] Comment on above: Order Comment: helga r Result Comment: [place] Glucose Reference Range is dependent on time and content of last meal. Glucose of more than 200 mg/dL in a nonstressed, ambulatory subject supports the diagnosis of Diabetes Mellitus. ADA recommended reference range Performed By: #### B MP, LIPASE, SCAN CBC, HEPATIC #### [facility] [address] Potassium [Moles/Vol] 4.1 mmol/L Normal 3.5-5.1 [facility] Comment on above: Order Comment: helga r Performed By: #### B MP, LIPASE, SCAN CBC, HEPATIC #### [facility] [address] [place] [id number] [facility] Sodium [Moles/Vol] 141 mmol/L Normal 136-145 [facility] Comment on above: Order Comment: helga r Performed By: #### B MP, LIPASE, SCAN CBC, HEPATIC #### [facility] [address] [place] [id number] [facility] Urea nitrogen [Mass/Vol] 8 mg/dL Normal 7-25 [facility] Comment on above: Order Comment: helga r Performed By: #### B MP, LIPASE, SCAN CBC, HEPATIC #### [facility] [address] [place] [id number] [facility] Basophils Auto (Bld) [#/Vol] Ordered By: Oh Aparicio on 10-16-2023 Basophils (Bld) [#/Vol] 0.0 10*3/uL 0.0-0.2 [facility] Basophils/100 WBC Auto (Bld) Ordered By: Oh Aparicio on 10-16-2023 Basophils/100 WBC (Bld) 0.3 % . [facility] Bilirubin Test strip Ql (U)O rdered By: Oh Aparicio on 10-16-2023 Bilirubin Ql (U) Negative Negative [facility] Bilirubin.direct [Mass/volum e] in Serum or PlasmaOrdered By: Oh Aparicio on 10-16-2023 Bilirubin.direct [Mass/Vol] 0.10 mg/dL 0.03-0.18 [facility] Bilirubin.total [Mass/volume ] in Serum or PlasmaOrdered By: Oh Aparicio on 10-16-2023 Bilirubin [Mass/Vol] 0.4 mg/dL 0.3-1.0 [facility] CT abdomen pelvis w conon CT abdomen pelvis w con [facility] [place] [address] CT Scan Report Signed Patient: Torrey Antony MR#: [id number] : 1990 Acct:[id number] Age/Sex: 32 / F ADM Date: 10/16/23 Loc: ER Room: Type: [facility] ER Attending Dr: Copies to: Oh Aparicio [...] Anastasia Nunez M.D.10/16/2023 2:09 PM Dictation Location: [place] [address] Transcribed By: [facility] 10/16/23 1409 Dictated By: Anastasia Nunez MD 10/16/23 1355 Signed By: 10/16/23 1409 Normal [facility] Calcium [Mass/volume] in Ser um or PlasmaOrdered By: Oh Aparicio on 10-16-2023 Calcium [Mass/Vol] 9.4 mg/dL 8.6-10.3 [facility] Carbon dioxide, total [Moles /volume] in Serum or PlasmaOrdered By: Oh Aparicio on 10-16-2023 CO2 [Moles/Vol] 30.1 mmol/L 21.0-31.0 [facility] Chloride [Moles/volume] in S kusum or PlasmaOrdered By: Oh Aparicio on 10-16-2023 Chloride [Moles/Vol] 103 mmol/L 98-107 [facility] Color Auto (U)Ordered By: Lele Aparicio on 10-16-2023 Color (U) Yellow Yellow [facility] Creatinine [Mass/volume] in Serum or PlasmaOrdered By: Oh Aparicio on 10-16-2023 Creatinine [Mass/Vol] 0.67 mg/dL 0.60-1.20 [facility] Eosinophils Auto (Bld) [#/Vo l]Ordered By: Oh Aparicio on 10-16-2023 Eosinophils (Bld) [#/Vol] 0.2 10*3/uL 0.0-0.45 [facility] Eosinophils/100 WBC Auto (Bl d)Ordered By: hO Aparicio on 10-16-2023 Eosinophils/100 WBC (Bld) 2.5 % . [facility] Erythrocyte distribution wid th Auto (RBC) [Ratio]Ordered By: Oh Aparicio on 10-16-2023 Erythrocyte distribution width (RBC) [Ratio] 13.7 % 11.9-15.3 [facility] Globulin Calc (S) [Mass/Vol] Ordered By: Oh Aparicio on 10-16-2023 Globulin (S) [Mass/Vol] 2.3 g/dL [facility] Glucose [Mass/volume] in Ser um or PlasmaOrdered By: Oh Aparicio on 10-16-2023 Glucose [Mass/Vol] 75 mg/dL 70-100 [facility] Comment on above: ADA recommended refe rence rangeRandom Glucose Reference Range is dependent on time and content of last meal. Glucose of more than 200 mg/dL in a nonstressed, ambulatory subject supports the diagnosis of Diabetes Mellitus. HCG ( test) IA.rapi d Ql (U)Ordered By: Oh Aparicio on 10-16-2023 HCG ( test) Ql (U) Negative [facility] HCG,Urineon 10-16-2023 Beta HCG ( test) Ql (U) Negative Normal [facility] Comment on above: Order Comment: Name Collection Type:: Voided Result Comment: PERF ORMED BY: [place] [address] PATHOLOGIST TRUCK STRIKER TAZ DALY M.D. Performed By: #### U HCG, UA #### [address] Hematocrit Auto (Bld) [Volum e fraction]Ordered By: Oh Aparicio on 10-16-2023 Hematocrit (Bld) [Volume fraction] 40.4 % 34.0-46.4 [facility] Hemoglobin [Mass/volume] in BloodOrdered By: Oh Aparicio on 10-16-2023 Hemoglobin (Bld) [Mass/Vol] 13.7 g/dL 11.8-15.4 [facility] Hepatic Panelon 10-16-2023 Albumin [Mass/Vol] 4.3 g/dL Normal 3.5-5.7 [facility] Comment on above: Order Comment: helga r Performed By: #### B MP, LIPASE, SCAN CBC, HEPATIC #### [facility] [address] Albumin/Globulin [Mass ratio] 1.9 {ratio} Normal [facility] Comment on above: Order Comment: helga r Performed By: #### B MP, LIPASE, SCAN CBC, HEPATIC #### [facility] [address] ALP [Catalytic activity/Vol] 54 U/L Normal 34-104 [facility] Comment on above: Order Comment: helga r Performed By: #### B MP, LIPASE, SCAN CBC, HEPATIC #### [facility] [address] [place] [address] [place] ALT [Catalytic activity/Vol] 20 U/L Normal 7-52 [facility] Comment on above: Order Comment: helga r Performed By: #### B MP, LIPASE, SCAN CBC, HEPATIC #### [facility] [address] [place], [place] [id number] [place] AST [Catalytic activity/Vol] 17 U/L Normal 13-39 [facility] Comment on above: Order Comment: helga r Performed By: #### B MP, LIPASE, SCAN CBC, HEPATIC #### [facility] [address] [place] [phone] [place] Bilirubin [Mass/Vol] 0.4 mg/dL Normal 0.3-1.0 [facility] Comment on above: Order Comment: helga r Performed By: #### B MP, LIPASE, SCAN CBC, HEPATIC #### [facility] [address] [place] [phone] [place] Bilirubin,Indirect 0.3 mg/dL Normal [facility] Comment on above: Order Comment: helga r Performed By: #### B MP, LIPASE, SCAN CBC, HEPATIC #### [address] Bilirubin.indirect [Mass/Vol] 0.10 mg/dL Normal 0.03-0.18 [facility] Comment on above: Order Comment: helga r Performed By: #### B MP, LIPASE, SCAN CBC, HEPATIC #### [address] Globulin (S) [Mass/Vol] 2.3 g/dL Normal [facility] Comment on above: Order Comment: helga r Performed By: #### B MP, LIPASE, SCAN CBC, HEPATIC #### [address] Protein [Mass/Vol] 6.6 g/dL Normal 6.4-8.9 [facility] Comment on above: Order Comment: helga r Performed By: #### B MP, LIPASE, SCAN CBC, HEPATIC #### [address] Ketones Auto test strip (U) [Mass/Vol]Ordered By: Oh Aparicio on 10-16-2023 Ketones (U) [Mass/Vol] Negative Negative [facility] Leukocytes [#/volume] correc milla for nucleated erythrocytes in Blood by Automated counOrdered By: Oh Aparicio on 10-16-2023 WBC corrected for nucl RBC Auto (Bld) [#/Vol] 6.3 10*3/uL 3.8-11.6 [facility] Lipaseon 10-16-2023 Lipase [Catalytic activity/Vol] 7.0 U/L Low 11.0-82.0 [facility] Comment on above: Order Comment: helga r Result Comment: PERF ORMED BY: [place] [address] PATHOLOGIST TRUCK STRIKER TAZ DALY M.D. Performed By: #### B MP, LIPASE, SCAN CBC, HEPATIC #### [address] Lipase [Enzymatic activity/v olume] in Serum or PlasmaOrdered By: Oh Aparicio on 10-16-2023 Lipase [Catalytic activity/Vol] 7.0 U/L 11.0-82.0 [facility] Lymphocytes Auto (Bld) [#/Vo l]Ordered By: Oh Aparicio on 10-16-2023 Lymphocytes (Bld) [#/Vol] 2.2 10*3/uL 1.00-4.8 [facility] Lymphocytes/100 WBC Auto (Bl d)Ordered By: Oh Aparicio on 10-16-2023 Lymphocytes/100 WBC (Bld) 34.2 % . [facility] MCH Auto (RBC) [Entitic mass ]Ordered By: Oh Aparicio on 10-16-2023 MCH (RBC) [Entitic mass] 31.0 pg 24.7-34.3 [facility] MCHC Auto (RBC) [Mass/Vol]Or dered By: Oh Aparicio on 10-16-2023 MCHC (RBC) [Mass/Vol] 33.9 g/dL 32.0-35.0 [facility] MCV Auto (RBC) [Entitic vol] Ordered By: Oh Aparicio on 10-16-2023 MCV (RBC) [Entitic vol] 91.5 fL 80-100 [facility] Monocyte distribution width [Entitic volume] in Blood by AutomatedOrdered By: Oh Aparicio on 10-16-2023 Monocyte distribution width Auto (Bld) [Entitic vol] 17.06 % 0.00-20.00 [facility] Monocytes Auto (Bld) [#/Vol] Ordered By: Oh Aparicio on 10-16-2023 Monocytes (Bld) [#/Vol] 0.4 10*3/uL 0.0-0.8 [facility] Monocytes/100 WBC Auto (Bld) Ordered By: Oh Aparicio on 10-16-2023 Monocytes/100 WBC (Bld) 5.9 % . [facility] Neutrophils Auto (Bld) [#/Vo l]Ordered By: Oh Aparicio on 10-16-2023 Neutrophils (Bld) [#/Vol] 3.6 10*3/uL 1.8-7.7 [facility] Neutrophils/100 WBC Auto (Bl d)Ordered By: Oh Aparicio on 10-16-2023 Neutrophils/100 WBC (Bld) 57.1 % . [facility] Nitrite Test strip Ql (U)Ord ered By: Oh Aparicio on 10-16-2023 Nitrite Ql (U) Negative Negative [facility] No Panel InformationOrdered By: Oh Aparicio on 10-16-2023 Estimated GFR (CKD-EPI) > 60.0 mL/Min [facility] Creatinine Clearance (Chem 110.48 [facility] Nucleated erythrocytes [Pres ence] in Blood by Automated countOrdered By: Oh Aparicio on 10-16-2023 Nucleated RBC Auto Ql (Bld) 0.2 /100{WBC} 0-0.5 [facility] Platelet adequacy [Presence] in Blood by Light microscopyOrdered By: Oh Aparicio on 10-16-2023 Platelets LM Ql (Bld) Normal Normal [facility] Platelet mean volume Auto (B ld) [Entitic vol]Ordered By: Oh Aparicio on 10-16-2023 Platelet mean volume (Bld) [Entitic vol] 11.6 fL 6.3-10.7 [facility] Platelet morphology finding [Identifier] in BloodOrdered By: Oh Aparicio on 10-16-2023 Platelet morphology finding Nom (Bld) N/A [facility] Platelets Auto (Bld) [#/Vol] Ordered By: Oh Aparicio on 10-16-2023 Platelets (Bld) [#/Vol] 174 10*3/uL 150-450 [facility] Platelets Large [Presence] i n Blood by Light microscopyOrdered By: Oh Aparicio on 10-16-2023 Platelets Large LM Ql (Bld) Slight [facility] Potassium [Moles/volume] in Serum or PlasmaOrdered By: Oh Aparicio on 10-16-2023 Potassium [Moles/Vol] 4.1 mmol/L 3.5-5.1 [facility] Protein Auto test strip (U) [Mass/Vol]Ordered By: Oh Aparicio on 10-16-2023 Protein (U) [Mass/Vol] Negative Negative [facility] Protein [Mass/volume] in Ser um or PlasmaOrdered By: Oh Aparicio on 10-16-2023 Protein [Mass/Vol] 6.6 g/dL 6.4-8.9 [facility] RBC Auto (Bld) [#/Vol]Ordere d By: Oh Aparicio on 10-16-2023 RBC (Bld) [#/Vol] 4.42 10*6/uL 3.60-5.00 [facility] RBC morphologyOrdered By: Lele Aparicio on 10-16-2023 RBC morphology finding Nom (Bld) Normal Normal [facility] Scan and CBCon 10-16-2023 Basophils (Bld) [#/Vol] 0.0 10*3/uL Normal 0.0-0.2 [facility] Comment on above: Order Comment: helga r Performed By: #### B MP, LIPASE, SCAN CBC, HEPATIC #### [facility] [address] Basophils/100 WBC (Bld) 0.3 % Normal . [facility] Comment on above: Order Comment: helga r Performed By: #### B MP, LIPASE, SCAN CBC, HEPATIC #### [facility] [address] Eosinophils (Bld) [#/Vol] 0.2 10*3/uL Normal 0.0-0.45 [facility] Comment on above: Order Comment: helga r Performed By: #### B MP, LIPASE, SCAN CBC, HEPATIC #### [facility] [address] Eosinophils/100 WBC (Bld) 2.5 % Normal . [facility] Comment on above: Order Comment: helga r Performed By: #### B MP, LIPASE, SCAN CBC, HEPATIC #### [facility] [address] Erythrocyte distribution width (RBC) [Ratio] 13.7 % Normal 11.9-15.3 [facility] Comment on above: Order Comment: helga r Performed By: #### B MP, LIPASE, SCAN CBC, HEPATIC #### [facility] [address] Hematocrit (Bld) [Volume fraction] 40.4 % Normal 34.0-46.4 [facility] Comment on above: Order Comment: helga r Performed By: #### B MP, LIPASE, SCAN CBC, HEPATIC #### [address] Hemoglobin (Bld) [Mass/Vol] 13.7 g/dL Normal 11.8-15.4 [facility] Comment on above: Order Comment: helga r Performed By: #### B MP, LIPASE, SCAN CBC, HEPATIC #### [address] Large Platelets Slight Normal [facility] Comment on above: Order Comment: helga r Result Comment: PERF ORMED BY: [place] [address] PATHOLOGIST TRUCK STRIKER TAZ DALY M.D. Performed By: #### B MP, LIPASE, SCAN CBC, HEPATIC #### [address] Lymphocytes (Bld) [#/Vol] 2.2 10*3/uL Normal 1.00-4.8 [facility] Comment on above: Order Comment: helga r Performed By: #### B MP, LIPASE, SCAN CBC, HEPATIC #### [address] Lymphocytes/100 WBC (Bld) 34.2 % Normal . [facility] Comment on above: Order Comment: helga r Performed By: #### B MP, LIPASE, SCAN CBC, HEPATIC #### [address] MCH (RBC) [Entitic mass] 31.0 pg Normal 24.7-34.3 [facility] Comment on above: Order Comment: helga r Performed By: #### B MP, LIPASE, SCAN CBC, HEPATIC #### [address] MCV (RBC) [Entitic vol] 91.5 fL Normal 80-100 [facility] Comment on above: Order Comment: helga r Performed By: #### B MP, LIPASE, SCAN CBC, HEPATIC #### [address] Mean Corpuscular HGB Conc 33.9 g/dL Normal 32.0-35.0 [facility] Comment on above: Order Comment: helga r Performed By: #### B MP, LIPASE, SCAN CBC, HEPATIC #### [address] Monocytes (Bld) [#/Vol] 0.4 10*3/uL Normal 0.0-0.8 [facility] Comment on above: Order Comment: helga r Performed By: #### B MP, LIPASE, SCAN CBC, HEPATIC #### [address] Monocytes/100 WBC (Bld) 17.06 % Normal 0.00-20.00 [facility] Comment on above: Order Comment: helga r Performed By: #### B MP, LIPASE, SCAN CBC, HEPATIC #### [address] Monocytes/100 WBC (Bld) 5.9 % Normal . [facility] Comment on above: Order Comment: helga r Performed By: #### B MP, LIPASE, SCAN CBC, HEPATIC #### [address] Neutrophils (Bld) [#/Vol] 3.6 10*3/uL Normal 1.8-7.7 [facility] Comment on above: Order Comment: helga r Performed By: #### B MP, LIPASE, SCAN CBC, HEPATIC #### [address] Neutrophils/100 WBC (Bld) 57.1 % Normal . [facility] Comment on above: Order Comment: helga r Performed By: #### B MP, LIPASE, SCAN CBC, HEPATIC #### [address] NRBC% 0.2 /100{WBC} Normal 0-0.5 [facility] Comment on above: Order Comment: helga r Performed By: #### B MP, LIPASE, SCAN CBC, HEPATIC #### [facility] [address] Platelet Estimate Normal Normal Normal [facility] Comment on above: Order Comment: helga r Performed By: #### B MP, LIPASE, SCAN CBC, HEPATIC #### [facility] [address] Platelet mean volume (Bld) [Entitic vol] 11.6 fL High 6.3-10.7 [facility] Comment on above: Order Comment: helga r Performed By: #### B MP, LIPASE, SCAN CBC, HEPATIC #### [facility] [address] Platelets (Bld) [#/Vol] 174 10*3/uL Normal 150-450 [facility] Comment on above: Order Comment: helga r Performed By: #### B MP, LIPASE, SCAN CBC, HEPATIC #### [facility] [address] RBC (Bld) [#/Vol] 4.42 10*6/uL Normal 3.60-5.00 [facility] Comment on above: Order Comment: helga r Performed By: #### B MP, LIPASE, SCAN CBC, HEPATIC #### [facility] [address] RBC morphology finding Nom (Bld) Normal Normal Normal [facility] Comment on above: Order Comment: helga r Performed By: #### B MP, LIPASE, SCAN CBC, HEPATIC #### [facility] [address] WBC (Bld) [#/Vol] 6.3 10*3/uL Normal 3.8-11.6 [facility] Comment on above: Order Comment: helga r Performed By: #### B MP, LIPASE, SCAN CBC, HEPATIC #### [facility] [address] Serum or plasma albumin/glob ulin mass ratioOrdered By: Oh Aparicio on 10-16-2023 Albumin/Globulin [Mass ratio] 1.9 {ratio} [facility] Serum or plasma anion gap de terminationOrdered By: Oh Aparicio on 10-16-2023 Anion gap [Moles/Vol] 12.0 mmol/L 6.0-15.0 [facility] Serum or plasma non-glucuron idated bilirubin measurement (mass/volume)Ordered By: Oh Aparicio on 10-16-2023 Bilirubin.indirect [Mass/Vol] 0.3 mg/dL [facility] Sodium [Moles/volume] in Ser um or PlasmaOrdered By: Oh Aparicio on 10-16-2023 Sodium [Moles/Vol] 141 mmol/L 136-145 [facility] Specific gravity Auto test s trip (U) [Rel density]Ordered By: Oh Aparicio on 10-16-2023 Specific gravity (U) [Rel density] 1.006 1.001-1.030 [facility] US gall bladderon 10-16-2023 US gall bladder [facility] [place] [address] Ultrasound Report Signed Patient: Torrey Antony MR#: [id number] : 1990 Acct:[id number] Age/Sex: 32 / F ADM Date: 10/16/23 Loc: ER Room: Type: [facility] ER Attending Dr: Ordering Provider: Oh Aparicio [...] Anastasia Nunez M.D.10/16/2023 1:27 PM Dictation Location: [place] [address] Tech: Katharina Melvin Transcribed By: DIANA 10/16/23 1327 Dictated By: Anastasia Nunez MD 10/16/23 1325 Signed By: 10/16/23 1327 Normal [facility] Urea nitrogen [Mass/volume] in Serum or PlasmaOrdered By: Oh Aparicio on 10-16-2023 Urea nitrogen [Mass/Vol] 8 mg/dL 01-09 [facility] Urinalysison 10-16-2023 Appearance (U) Clear Normal Clear [facility] Comment on above: Order Comment: Name Collection Type:: Voided Performed By: #### U HCG, UA #### [place] [address] [place] Bilirubin,Urine Negative Normal Negative [facility] Comment on above: Order Comment: Name Collection Type:: Voided Performed By: #### U HCG, UA #### [address] Color (U) Yellow Normal Yellow [facility] Comment on above: Order Comment: Name Collection Type:: Voided Performed By: #### U HCG, UA #### [place] [address] [place] Glucose Ql (U) Normal Normal Normal [facility] Comment on above: Order Comment: Name Collection Type:: Voided Performed By: #### U HCG, UA #### [place] [address] [place] Ketones Ql (U) Negative Normal Negative [facility] Comment on above: Order Comment: Name Collection Type:: Voided Performed By: #### U HCG, UA #### [place] [id number] [place] Leukocyte esterase Test strip Ql (U) Negative Normal Negative [facility] Comment on above: Order Comment: Name Collection Type:: Voided Performed By: #### U HCG, UA #### [place] [address] [place] Nitrite,Urine Negative Normal Negative [facility] Comment on above: Order Comment: Name Collection Type:: Voided Performed By: #### U HCG, UA #### [place] [id number] [place] Occult Blood,Urine Negative Normal Negative [facility] Comment on above: Order Comment: Name Collection Type:: Voided Performed By: #### U HCG, UA #### [address] pH (U) 7.0 [pH] Normal 5.0-9.0 [facility] Comment on above: Order Comment: Name Collection Type:: Voided Performed By: #### U HCG, UA #### [address] Protein,Urine Negative Normal Negative [facility] Comment on above: Order Comment: Name Collection Type:: Voided Performed By: #### U HCG, UA #### [address] Specificy Wittmann,Urine 1.006 Normal 1.001-1.030 [facility] Comment on above: Order Comment: Name Collection Type:: Voided Performed By: #### U HCG, UA #### [address] Urobilinogen,Urine Normal Normal Normal [facility] Comment on above: Order Comment: Name Collection Type:: Voided Performed By: #### U HCG, UA #### [address] Urine clarity by refractomet ry automatedOrdered By: Oh Aparicio on 10-16-2023 Clarity Refractometry automated (U) Clear Clear [facility] Urine glucose measurement by automated test strip (mass/volume)Ordered By: Oh Aparicio on 10-16-2023 Glucose Auto test strip (U) [Mass/Vol] Normal mg/dL Normal [facility] Urine hemoglobin detection b y automated test stripOrdered By: Oh Aparicio on 10-16-2023 Hemoglobin Auto test strip Ql (U) Negative Negative [facility] Urine leukocyte esterase det ection by automated test stripOrdered By: Oh Aparicio on 10-16-2023 Leukocyte esterase Auto test strip Ql (U) Negative Negative [facility] Urobilinogen Auto test strip (U) [Mass/Vol]Ordered By: Oh Aparicio on 10-16-2023 Urobilinogen (U) [Mass/Vol] Normal mg/dL Normal [facility] WBC Auto (Bld) [#/Vol]Ordere d By: Oh Aparicio on 10-16-2023 WBC (Bld) [#/Vol] 6.3 10*3/uL 3.8-11.6 [facility] pH Auto test strip (U)Ordere d By: Oh Aparicio on 10-16-2023 pH (U) 7.0 [pH] 5.0-9.0 [facility] Office Visiton 11-30-2022 Follow-up visit [id number] Torrey Antony 1990 F Date Provider Department Center 11/30/2022 [facility] Family History Problem Relation Age of Onset No Known Problems Mother Hypertension Father Hyperlipidemia Father Family Status - Relation Status Age at Mother Alive Father Alive Level of Service:49116 ME OFFICE/OUTPATIENT ESTABLISHED LOW [facility] 20-29 MIN Reason for Visit and Comments: Pain [136] Normal [facility] XR CHEST 2 Von 11-09-2022 [...] by: HAN ARNOLD Date: 2022-11-09 17:20 Normal [facility] XR CHEST 1 Von 11-02-2022 XR CHEST [...] by: MAURO NUNEZ Date: 2022-11-02 20:46 Normal [facility] THYROID ANTIBODIESon 023 Thyroglobulin Antibody <1.0 Normal 0.0-0.9 Th e [facility] Comment on above: Result Comment: Thyr oglobulin Antibody measured by [employer] Performed By: #### T HYRABS #### [facility] [address] [place] [address] Dr. Rigo Sands Thyroid Peroxidase (TPO) Ab <9 Normal 0-34 [facility] Comment on above: Performed By: #### T HYRABS #### [facility] [address] [place] [address] Dr. Rigo Sands US THYROIDon 07-10-2022 US [...] by: MAURO POSADAS Date: 2022-07-10 06:33 Normal [facility] FREE T3on 07-07-2022 FREE T3 2.99 pg/mlL Normal 2.18-3.98 [facility] Comment on above: Performed By: #### T SH, FT3 #### [facility] [address] [place] [address] Dr. Rigo Sands FREE T4on 07-07-2022 Free T4 [Mass/Vol] 0.64 ng/dL Critically low 0.76-1.46 Th [facility] Comment on above: Performed By: #### F T4 #### [facility] [address] [place] [address] Dr. Rigo Sands TSHon 07-07-2022 TSH 0.764 uIU/mL Normal 0.358-3.740 [facility] Comment on above: Performed By: #### T SH, FT3 #### [facility] [address] [place] [address] Dr. Rigo Sands Covid-19 PCR (CVDTB)on SARS-CoV-2 (COVID-19) RNA OK+probe Ql (Unsp spec) Not detected Normal NOT DETECTED [facility] Comment on above: Result Comment: When diagnostic [...] for this test is supported by the [place] of Health and Human Service's declaration that [...] used). Performed By: #### C VDTBH #### [facility] [address] [place] [address] Dr. Rigo Sands CBC AUTO DIFFon 04-04-2022 BASO # 0.0 103/ul Normal 0.0-0.1 [facility] Comment on above: Performed By: #### C BC ####[facility] [address] [place], [place] [address]DrRobert Sands Basophils/100 WBC (Bld) 0.3 % Normal 0.2-2.0 [facility] Comment on above: Performed By: #### C BC ####[facility] [address] [place] [address]DrRobert Sands EO # 0.1 103/ul Normal 0.0-0.7 [facility] Comment on above: Performed By: #### C BC ####[facility] [address] [place] [address]DrRobert Sands Eosinophils/100 WBC (Bld) 0.8 % Critically low 0.9-7.0 [facility] Comment on above: Performed By: #### C BC ####[facility] [address] [place], [place] [address]Dr. Rigo Sands Erythrocyte distribution width (RBC) [Ratio] 13.2 % Normal 11.0-15.0 [facility] Comment on above: Performed By: #### C BC ####[facility] [address] [place], [place] [address]Dr. Rigo Sands Hematocrit (Bld) [Volume fraction] 42.0 % Normal 36.0-48.0 [facility] Comment on above: Performed By: #### C BC ####[facility] [address] [place], [place] [address]Dr. Rigo Sands Hemoglobin (Bld) [Mass/Vol] 13.8 g/dL Normal 12.0-16.0 [facility] Comment on above: Performed By: #### C BC ####[facility] [address] [place], [place] [address]Dr. Riog Sands IG # 0.04 10e3/ul Critically high 0.00-0.03 [facility] Comment on above: Performed By: #### C BC ####[facility] [address] [place], [place] [address]Dr. Rigo Sands IG % 0.5 % Normal 0.0-0.5 [facility] Comment on above: Performed By: #### C BC ####[facility] [address] [place], [place] [address]Dr. Rigo Sands LYMPH # 1.9 103/ul Normal 1.2-3.8 [facility] Comment on above: Performed By: #### C BC ####[facility] [address] [place], [place] [address]Dr. Rigo Sands Lymphocytes/100 WBC (Bld) 25.5 % Normal 20.5-60.0 [facility] Comment on above: Performed By: #### C BC ####[facility] [address] [place], [place] [address]Dr. Rigo Sands MANUAL DIFF REQ NO Normal [facility] Comment on above: Performed By: #### C BC ####[facility] [address] [place] [address]DrRobert Sands MCH (RBC) [Entitic mass] 30.4 pg Normal 26.7-34.0 [facility] Comment on above: Performed By: #### C BC ####[facility] [address] [place] [address]DrRobert Sands MCHC (RBC) [Mass/Vol] 32.9 g/dL Normal 29.9-35.2 [facility] Comment on above: Performed By: #### C BC ####[facility] [address] [place], [place] [address]DrRobert Sands MCV (RBC) [Entitic vol] 92.5 fL Normal 81.0-99.0 [facility] Comment on above: Performed By: #### C BC ####[facility] [address] [place], [place] [address]DrRobert Sands MONO # 0.5 103/ul Normal 0.3-0.8 [facility] Comment on above: Performed By: #### C BC ####[facility] [address] [place], [place] [address]DrRobert Sands Monocytes/100 WBC (Bld) 6.0 % Normal 1.7-12.0 [facility] Comment on above: Performed By: #### C BC ####[facility] [address] [place], [place] [address]DrRobert Sands NEUT # 5.0 103/ul Normal 1.4-6.5 [facility] Comment on above: Performed By: #### C BC ####[facility] [address] [place], [place] [address]DrRobert Sands Neutrophils/100 WBC (Bld) 66.9 % Normal 43.0-75.0 [facility] Comment on above: Performed By: #### C BC ####[facility] [address] [place], [place] [address]DrRobert Sands Platelet mean volume (Bld) [Entitic vol] 12.7 fL Normal 9.5-13.5 [facility] Comment on above: Performed By: #### C BC ####[facility] [address] [place] [address]Dr. Rigo Sands PLT 196 103/ul Normal 150-450 [facility] Comment on above: Performed By: #### C BC ####[facility] [address] [place], [place] [address]Dr. Rigo Sands RBC 4.54 106/ul Normal 4.20-5.40 [facility] Comment on above: Performed By: #### C BC ####[facility] [address] [place], [place] [address]Dr. Rigo Sands WBC 7.5 103/ul Normal 4.0-11.0 [facility] Comment on above: Performed By: #### C BC ####[facility] [address] [place], [place] [address]Dr. Rigo Sands IRONon 04-04-2022 Iron [Mass/Vol] 65.0 ug/dL Normal 50.0-170.0 [facility] Comment on above: Performed By: #### V ITAD, IRON, VITB12 ####[facility] [address] [place], [place] [address]Dr. Rigo Sands VITAMIN B12on 04-04-2022 Cobalamin (Vitamin B12) [Mass/Vol] 369.0 pg/mL Normal 193.0-986.0 [facility] Comment on above: Performed By: #### V ITAD, IRON, VITB12 ####[facility] [address] [place], [place] [address]Dr. Rigo Sands VITAMIN D 25 OHon 04-04-2022 VIT D 25-OH 59.2 ng/mL Normal [facility] Comment on above: Performed By: #### V ITAD, IRON, VITB12 ####[facility] [address] [place], [place] [address]Dr. Rigo Sands VIT D RANGES SEE BELOW Normal [facility] Comment on above: Result Comment: <20 ng/mL Vit D deficient 20 - <30 ng/mL Vit D insufficient 30 - 100 ng/mL Vit D sufficient >100 ng/mL Potential Toxicity Performed By: #### V ITAD, IRON, VITB12 ####[facility] [address] [place] [address]Dr. Rigo Sands CBC AUTO DIFFon 02-15-2022 BASO # 0.0 103/ul Normal 0.0-0.1 [facility] Comment on above: Performed By: #### C BC #### [facility] [address] [place] [address] [address] Rigo Sands Basophils/100 WBC (Bld) 0.2 % Normal 0.2-2.0 [facility] Comment on above: Performed By: #### C BC #### [facility] [address] [place] [address] Dr. Rigo Sands EO # 0.0 103/ul Normal 0.0-0.7 [facility] Comment on above: Performed By: #### C BC #### [facility] [address] [place] [address] Dr. Rigo Sands Eosinophils/100 WBC (Bld) 0.1 % Critically low 0.9-7.0 [facility] Comment on above: Performed By: #### C BC #### [facility] [address] [place] [address] Dr. Rigo Sands Erythrocyte distribution width (RBC) [Ratio] 13.5 % Normal 11.0-15.0 [facility] Comment on above: Performed By: #### C BC #### [facility] [address] [place] [address] Dr. Rigo Sands Hematocrit (Bld) [Volume fraction] 40.0 % Normal 36.0-48.0 [facility] Comment on above: Performed By: #### C BC #### [facility] [address] [place] [address] Dr. Rigo Sands Hemoglobin (Bld) [Mass/Vol] 13.4 g/dL Normal 12.0-16.0 [facility] Comment on above: Performed By: #### C BC #### [facility] [address] [place] [address] Dr. Rigo Sands IG # 0.04 10e3/ul Critically high 0.00-0.03 [facility] Comment on above: Performed By: #### C BC #### [facility] [address] [place] [address] Dr. Rigo Sands IG % 0.4 % Normal 0.0-0.5 [facility] Comment on above: Performed By: #### C BC #### [facility] [address] [place] [address] Dr. Rigo Sands LYMPH # 1.6 103/ul Normal 1.2-3.8 [facility] Comment on above: Performed By: #### C BC #### [facility] [address] [place] [address] Dr. Rigo Sands Lymphocytes/100 WBC (Bld) 17.2 % Critically low 20.5-60.0 [facility] Comment on above: Performed By: #### C BC #### [facility] [address] [place] [address] Dr. Rigo Sands MANUAL DIFF REQ NO Normal [facility] Comment on above: Performed By: #### C BC #### [facility] [address] [place] [address] Dr. Rigo Sands MCH (RBC) [Entitic mass] 30.7 pg Normal 26.7-34.0 [facility] Comment on above: Performed By: #### C BC #### [facility] [address] [place] [address] Dr. Rigo Sands MCHC (RBC) [Mass/Vol] 33.5 g/dL Normal 29.9-35.2 [facility] Comment on above: Performed By: #### C BC #### [facility] [address] [place] [address] Dr. Rigo Sands MCV (RBC) [Entitic vol] 91.5 fL Normal 81.0-99.0 [facility] Comment on above: Performed By: #### C BC #### [facility] [address] [place] [address] Dr. Rigo Sands MONO # 0.4 103/ul Normal 0.3-0.8 [facility] Comment on above: Performed By: #### C BC #### [facility] [address] [place] [address] Dr. Rigo Sands Monocytes/100 WBC (Bld) 4.0 % Normal 1.7-12.0 [facility] Comment on above: Performed By: #### C BC #### [facility] [address] [place] [address] Dr. Rigo Sands NEUT # 7.4 103/ul Critically high 1.4-6.5 [facility] Comment on above: Performed By: #### C BC #### [facility] [address] [place] [address] Dr. Rigo Sands Neutrophils/100 WBC (Bld) 78.1 % Critically high 43.0-75.0 [facility] Comment on above: Performed By: #### C BC #### [facility] [address] [place] [address] Dr. Rigo Sands Platelet mean volume (Bld) [Entitic vol] 12.3 fL Normal 9.5-13.5 [facility] Comment on above: Performed By: #### C BC #### [facility] [address] [place] [address] Dr. Rigo Sands PLT 199 103/ul Normal 150-450 [facility] Comment on above: Performed By: #### C BC #### [facility] [address] [place] [address] Dr. Rigo Sands RBC 4.37 106/ul Normal 4.20-5.40 [facility] Comment on above: Performed By: #### C BC #### [facility] [address] [place] [address] Dr. Rigo Sands WBC 9.5 103/ul Normal 4.0-11.0 [facility] Comment on above: Performed By: #### C BC #### [facility] [address] [place] [address] Dr. Rigo Sands ER URINE PROFILEon 2 Bilirubin Ql (U) Negative Normal NEGATIVE [facility] Comment on above: Performed By: #### E RUR ####[facility] [address] [place], [place] [address]Dr. Rigo Sands Clarity (U) CLEAR Normal CLEAR [facility] Comment on above: Performed By: #### E RUR ####[facility] [address] [place], [place] [address]Dr. Hilarygilma Sands Color (U) LT. YELLOW Normal YELLOW [facility] Comment on above: Performed By: #### E RUR ####[facility] [address] [place], [place] [address]Dr. Rigo Sands ERUAHD A micrscopic examination will be performed if indicated. Normal [facility] Comment on above: Performed By: #### E RUR ####[facility] [address] [place], [place] [address]Dr. Rigo Sands Glucose Ql (U) Negative Normal NEGATIVE [facility] Comment on above: Performed By: #### E RUR ####[facility] [address] [place], [place] [address]Dr. Rigo Sands Hemoglobin Ql (U) Negative Normal NEGATIVE [facility] Comment on above: Performed By: #### E RUR ####[facility] [address] [place], [place] [address]Dr. Rigo Sands Ketones Ql (U) 15 mg/dl Abnormal NEGATIVE [facility] Comment on above: Performed By: #### E RUR ####[facility] [address] [place], [place] [address]Dr. Rigo Sands LEUKOCYTES Negative Normal NEGATIVE [facility] Comment on above: Performed By: #### E RUR ####[facility] [address] [place], [place] [address]Dr. Rigo Sands Nitrite Ql (U) Negative Normal NEGATIVE [facility] Comment on above: Performed By: #### E RUR ####[facility] [address] [place], [place] [address]Dr. Rigo Sands pH (U) 6.0 [pH] Normal 5-9 [facility] Comment on above: Performed By: #### E RUR ####[facility] [address] [place] [address]DrRobert Sands SPEC GRAVITY <=1.005 Abnormal 1.005-<=1.0 25 [facility] Comment on above: Performed By: #### E RUR ####[facility] [address] [place] [address]DrRobert aSnds UA PROTEIN Negative Normal NEGATIVE/ TRACE [facility] Comment on above: Performed By: #### E RUR ####[facility] [address] [place] [address]Dr. Rigo Sands UR MICRO IND NOT INDICATED Normal [facility] Comment on above: Performed By: #### E RUR ####[facility] [address] [place] [address]Dr. Rigo Sands Urobilinogen Qn (U) 0.2 {Keegan'U}/dL Normal 0.2 - 1. 0 [facility] Comment on above: Performed By: #### E RUR ####[facility] [address] [place] [address]DrRobert Sands LIPASEon 02-15-2022 Lipase [Catalytic activity/Vol] 50.0 U/L Critically low 73.0-393.0 [facility] Comment on above: Performed By: #### C ANALIA LIPA #### [facility] [address] [place] [address] Dr. Rigo Sands PROF 14(COMP METB)on 022 Albumin [Mass/Vol] 3.8 g/dL Normal 3.4-5.0 [facility] Comment on above: Performed By: #### C ANALIA LIPA #### [facility] [address] [place] [address] Dr. Rigo Sands Albumin/Globulin [Mass ratio] 1.2 {ratio} Normal [facility] Comment on above: Performed By: #### C ANALIA LIPA #### [facility] [address] [place] [address] Dr. Rigo Sands ALP [Catalytic activity/Vol] 60 U/L Normal 46-116 [facility] Comment on above: Performed By: #### C MP, LIPA #### [facility] [address] [place] [address] Dr. Rigo Sands ALT [Catalytic activity/Vol] 36 U/L Normal 14-59 [facility] Comment on above: Performed By: #### C MP, LIPA #### [facility] [address] [place] [address] Dr. Rigo Sands Anion gap [Moles/Vol] 12.0 mmol/L Normal [facility] Comment on above: Performed By: #### C MP, LIPA #### [facility] [address] [place] [address] Dr. Rigo Sands AST [Catalytic activity/Vol] 16 U/L Normal 15-37 [facility] Comment on above: Performed By: #### C MP, LIPA #### [facility] Laboratory [address] [place] [address] Dr. Rigo Sands Bilirubin [Mass/Vol] 0.3 mg/dL Normal 0.2-1.0 [facility] Comment on above: Performed By: #### C MP, LIPA #### [facility] Laboratory [address] [place] [address] Dr. Rigo Sands Calcium [Mass/Vol] 8.8 mg/dL Normal 8.5-10.1 [facility] Comment on above: Performed By: #### C MP, LIPA #### [facility] Laboratory [address] [place] [address] Dr. Rigo Sands Chloride [Moles/Vol] 104 mmol/L Normal 98-107 [facility] Comment on above: Performed By: #### C MP, LIPA #### [facility] [address] [place] [address] Dr. Rigo Sands CO2 [Moles/Vol] 27.6 mmol/L Normal 21.0-32.0 [facility] Comment on above: Performed By: #### C MP, LIPA #### [facility] [address] [place] [address] Dr. Rigo Sands Creatinine [Mass/Vol] 0.78 mg/dL Normal 0.55-1.02 [facility] Comment on above: Performed By: #### C MP, LIPA #### [facility] Laboratory [address] [place] [address] Dr. Rigo Sands EGFR-AF BRUNEIAN >60 Normal >=60 [facility] Comment on above: Performed By: #### C MP, LIPA #### [facility] [address] [address] [address] Rigo Sands EGFR-NON AF BRUNEIAN >60 Normal >=60 [facility] Comment on above: Performed By: #### C MP, LIPA #### [facility] [address] [place] [address] Dr. Rigo Sands Globulin (S) [Mass/Vol] 3.2 g/dL Normal [facility] Comment on above: Performed By: #### C MP, LIPA #### [facility] [address] [place] [address] Dr. Rigo Sands Glucose [Mass/Vol] 83 mg/dL Normal 74-106 [facility] Comment on above: Performed By: #### C MP, LIPA #### [facility] Laboratory [address] [place] [address] Dr. Rigo Sands Potassium [Moles/Vol] 3.6 mmol/L Normal 3.5-5.1 [facility] Comment on above: Performed By: #### C MP, LIPA #### [facility] Laboratory [address] [place] [address] Dr. Rigo Sands Protein [Mass/Vol] 7.0 g/dL Normal 6.4-8.2 [facility] Comment on above: Performed By: #### C MP, LIPA #### [facility] Laboratory [address] [place] [address] Dr. Rigo Sands Sodium [Moles/Vol] 140 mmol/L Normal 136-145 [facility] Comment on above: Performed By: #### C MP, LIPA #### [facility] [address] [place] [address] Dr. Rigo Sands Urea nitrogen [Mass/Vol] 16.0 mg/dL Normal 7.0-18.0 [facility] Comment on above: Performed By: #### C ANALIA, LIPMathew #### [facility] [address] [address] [address] Rigo Sands Urea nitrogen/Creatinine [Mass ratio] 20.5 mg/mg Normal [facility] Comment on above: Performed By: #### C MP, LIPA #### [facility] [address] [address] [address] Rigo Sands PROTIMEon 02-15-2022 INR Coag (PPP) [Relative time] 1.03 {INR} Normal [facility] Comment on above: Performed By: #### P TT, PT ####[facility] [address] [address]Dr. Rigo Sands INR GUIDELINES SEE BELOW Normal The [facility] Comment on above: Result Comment: SERINA RED INR: 2.0 - 3.0 CONDITIONS NOT LISTED BELOW 2.5 - 3.5 FOR PROSTHETIC HEART VALVE REPLACEMENT 2.5 - 3.5 RECURRENT THROMBOSIS Performed By: #### P TT, PT ####[facility] [address] [address]Dr. Rigo Sands PT Coag (PPP) [Time] 11.1 s Normal 9.0-11.6 [facility] Comment on above: Performed By: #### P TT, PT ####[facility] [address] [address]Dr. Rigo Sands PTTon 02-15-2022 aPTT Coag (Bld) [Time] 26.8 s Normal 22.3-36.2 Th [facility] Comment on above: Performed By: #### P TT, PT ####[facility] [address] [place], [place] [address]Dr. Rigo Sands XR ABD FLAT UP_PA Jeannette [...] MAURO POSADAS Date: 2022-02-15 14:44 Normal The [facility] XR hand LT min 3V*on 022 XR hand LT min 3V* [facility] Other XR hand LT min 3V* [facility] Other XR hand LT min 3V* [address] [place] [address] [employer] Other XR hand LT min 3V* LIA Roman [address] [employer] Other XR hand LT min 3V* XRay Report [employer] Other XR hand LT min 3V* Signed [employer] Other XR hand LT min 3V* Patient: Torrey Antony MR#: [id number] [employer] Other XR hand LT min 3V* [id number] [employer] Other XR hand LT min 3V* : 1990 Acct:[id number] [employer] Other XR hand LT min 3V* Age/Sex: 30 / F ADM Date: 10/18/21 [employer] Other XR hand LT min 3V* Loc: XDUCLY Room: pe: REG CLI [employer] Other XR hand LT min 3V* Attending Dr: Tiki GODDARD [employer] Other XR hand LT min 3V* Ordering Provider: NITZA Edgar [employer] Other XR hand LT min 3V* Date of Service: 10/18/21 [employer] Other XR hand LT min 3V* XR/XR hand LT min 3V*: Left hand pain [employer] Other XR hand LT min 3V* Copies to: NITZA Edgar [employer] Other XR hand LT min 3V* 4 viewsleft hand denise in film [employer] Other XR hand LT min 3V* COMPARISON:None [employer] Other XR hand LT min 3V* HISTORY:Left hand injury. [employer] Other XR hand LT min 3V* No fracture, dislocation or focal soft tissue abnormality seen. [employer] Other XR hand LT min 3V* XR/XR hand LT min 3V* [employer] Other XR hand LT min 3V* IMPRESSION:No acute findings [employer] Other XR hand LT min 3V* Impression dictated by: Elton Rodrigez M.D.10/18/2021 11:50 AM [employer] Other XR hand LT min 3V* Dictation Location: [address] [address] [employer] Other XR hand LT min 3V* Transcribed By: DIANA 10/18/21 1150 [employer] Other XR hand LT min 3V* Dictated By: Elton Rodrigez DO 10/18/21 1149 [employer] Other XR hand LT min 3V* Signed By: [employer] Other XR hand LT min 3V* 10/18/21 1150 [facility] Other Phone Sunita 04-22-2021 Phone Msg Entered by MERCEDES HOPKINS FACOG, NAZ on April 22, 2021 15:42:24 EDT From: NAZ LONG MD, FACOG To: [facility] #[id number] Sent: 04/22/2021 15:42:23 EDT Subject: Medication Management Not Approved: Patient should contact Prescriber first ibuprofen = Motrin, Advil (IBUPROFEN 600 MG TABLET) TAKE 1 TABLET BY MOUTH EVERY 6 HOURS Qty: 40 tabs Days Supply: 10 Refills: 0 Substitutions Allowed Route To Pharmacy - [facility] #[id number] From: [id number] To: NAZ LONG MD Sent: April 22, 2021 3:29:46 PM EDT Subject: Medication Management Due: April 08, 2021 4:20:54 PM EDT On Hold Pending Signature Dispensed Drug: ibuprofen = Motrin, Advil (ibuprofen 600 mg oral tablet), TAKE 1 TABLET BY MOUTH EVERY 6 HOURS Quantity: 40 tabs Days Supply: 10 Refills: 0 Substitutions Allowed Notes from Pharmacy: Normal [facility] Operative Reporton Operative Report MR#: [id number] S [facility] Pt. Name: Torrey Antony Room #: 0C Discharge Date: Birthdate: 1990 OPERATIVE REPORT DATE OF SURGERY: 11/30/2020 SURGEON: Frances Nicole M.D. EARLY CHILDHOOD DIRECTOR: Maribel Vazquez MD PREAMBLE: A 29-year-old female [...] A Frances Nicole M.D. Date Dict: 11/30/2020/09:48 A/Frances Nicole M.D. Date Trans: 11/30/2020 10:59 A/simran [id number] cc: Miriam Reeves, AUTO APPRENTICE MECHANIC [address] [facility] [address] Normal The [facility] POC GLUCOSE LABon 11-30-2020 Glucose [Mass/Vol] 75 mg/dL Normal 70-100 The [facility] Comment on above: Performed By: #### 8 5499 #### [facility] [address] [facility] POC URINE PREGNANCYon 2020 Beta HCG ( test) Ql (U) Negative Normal NEGATIVE The [facility] Comment on above: Result Comment: Perf ormed in PACU Performed By: #### 8 4140 #### [facility] [address] [facility] Phone Msgon 11-21-2020 Phone Msg - From: NAZ LONG MD, FACOG To: TORREY ANTONY Sent: 11/20/2020 22:44:14 EDT Subject: Normal pap Torrey, Your pap smear was normal. Naz Long MD Normal [facility] THIN PREP IMAGE SEND OUTon 0 11-20-2020 THIN PREP IMAGE SEND OUT See Report Normal [facility] Comment on above: Performed By: #### C D:[id number] #### [facility] Services [address] [place], [place] [id number] Straightening Press Operator: Yobany Diaz MD Operative Reporton Operative Report [...] quadrant under direct visualization. I used the Campbell-GeKionix graspers to grasp the left fallopian tube [...] at the end of the procedure. Normal [facility] Amb Office-Progress Notes-Pr ovideron 11-08-2020 Amb Office-Progress Notes-Provider Assessment/Plan 1. Cervical cancer screening Z12.4 Ordered: AMB Office/Outpt Est Pt SF MDM / 10-19 min 50145, 11/08/2020 12:43:00 EDT, Cervical cancer screening THIN PREP IMAGE SEND OUT, ROUTINE, 11/08/2020, Specimen type: SYSTEMS ARCHITECTURE ANALYST Spec, Dx: Cervical cancer screening Chief Complaint [...] normal: yes Insight and judgement normal: yes SYSTEMS ARCHITECTURE ANALYST: External genitalia: normal, no lesions Urethra: normal meatus Vagina: normal no lesions, no discharge, vault normal Cervix: no lesions, no cervical motion tenderness, normal appearance Uterus: normal mobility, non-tender, normal size, shape and consistency Adnexa: normal Cul de sac: normal Perineum: no hemorrhoids, masses or warts noted SYSTEMS ARCHITECTURE ANALYST Additional Details Menstrual History Menstrual StatusProphylaxis Problem List/Past Medical History Ongoing Anxiety BMI 33.0-33.9,adult Gastritis Irregular periods IUD (intrauterine device) in place Migraine with aura Historical Procedure/Surgical History Anjana IUD Lot # [id number] (07/29/2020) LAPAROSCOPIC RIGHT OOPHERECTOMY (12/24/2018) D&C/Nexplanon removal () D&C, retained placenta (2014) Pap negative (06/16/2014) Medications ibuprofen 600 mg oral tablet, 600 mg= 1 tabs, ORAL, [id number] Anjana 13.5 mg intrauterine device, 13.5 mg= [...] about 70). Stroke..: Grandfather and Grandmother. Normal [facility] Ambulatory Clinical Summaryo n 11-08-2020 Ambulatory Clinical Summary TORREY ANTONY :1990 Visit Date:11/08/2020 Ambulatory Visit Instructions Your Care Team Attending Physician - NAZ LONG MD, FACOG Primary Care Physician - EMILY FAMILY PHYSICIAN, 837 Procedures Performed Anjana IUD Lot # [id number] (07/29/2020) LAPAROSCOPIC RIGHT OOPHERECTOMY (12/24/2018) D&C/Nexplanon removal [...] call to get immediate medical attention! Normal [facility] Phone Msgon 09-15-2020 Phone Msg Entered by Luli Ribeiro on September 15, 2020 11:07:26 EDT I called and left her a voice mail to call and scheduled her surgery. Please find the order information listed below. Ordered By:NAZ LONG MD, FACOG REGIMEN_DETAIL: Requested Start Date/Time: 09/14/2020 11:37:00 EDT Intent of therapy: From: Luli Ribeiro ([facility] Surgery Scheduling) To: NAZ LONG MD; Sent: 09/15/2020 16:07:14 EDT Subject: RE: AMB Schedule Surgery called back and scheduled her, made her post op appt. she is scheduled for 11/19/2020 scheduled her, made her post op appt. she is scheduled for 11/19/2020 scanned in chart Normal [facility] Phone Msg - From: Luli Ribeiro ([facility] Surgery Scheduling) To: NAZ LONG MD; Sent: 09/15/2020 11:06:57 EDT Subject: RE: AMB Schedule Surgery Called and left her a voice mail to call and schedule her surgery, I am looking at 10/15/2020 at the [facility]. Please find the order information listed below. Ordered By:NAZ LONG MD, FACOG REGIMEN_DETAIL: Requested Start Date/Time: 09/14/2020 11:37:00 EDT Intent of therapy: Normal [facility] Ambulatory Clinical Summaryo n 09-14-2020 Ambulatory Clinical Summary TORREY ANTONY :1990 Visit Date:09/14/2020 Ambulatory Visit Instructions Your Diagnosis Mastalgia Your Care Team Attending Physician - ANZ LONG MD, FACOG Primary Care Physician - NO FAMILY PHYSICIAN, 837 Procedures Performed Anjana IUD Lot # [id number] (07/29/2020) LAPAROSCOPIC RIGHT OOPHERECTOMY (12/24/2018) Laparoscopy, surgical; [...] What to do next Scheduled Follow-Up Appointments Sunday. 2020 1:30 PM EDT With: NAZ LONG MD, FACOG Where: [facility] You Need to Schedule the Following Appointments [...] call to get immediate medical attention! Normal [facility] Phone Msgon 09-14-2020 Phone Msg - From: Cat Diaz To: Luli Ribeiro; Sent: 09/14/2020 12:57:29 EDT Subject: Surgery Pt needs scheduled for a tubal ligation. Forms have been scanned into documents - consent. Normal [facility] Ambulatory Clinical Summaryo n 07-29-2020 Ambulatory Clinical Summary TORREY ANTONY :1990 Visit Date:07/29/2020 Ambulatory Visit Instructions Your Diagnosis Pre-procedure lab exam Encounter for IUD removal and reinsertion Tests Performed AMB Urine POC 02269 Your Care Team Attending Physician - MERCEDES HOPKINS FACOG, NAZ Primary Care Physician - EMILY FAMILY PHYSICIAN, 837 Procedures Performed Anjana IUD Lot # [id number] (07/29/2020) Kyleena Iud removed 07/29/20 (12/24/2018) LAPAROSCOPIC [...] migraine headache Test Results AMB Urine POC 22746 (07/29/2020) U beta hCG Ql - Negative [...] call to get immediate medical attention! Normal [facility] Phone Msgon 07-14-2020 Phone Msg - From: Gay Lam To: Kathleen Lopez RN; Sent: 07/13/2020 15:20:51 EST Subject: test results Patient is calling and would like to have the results from her genetic testing. If you can please call her. [phone] From: Kathleen Lopez RN To: NAZ LONG MD; Sent: 07/13/2020 15:29:49 EST Subject: FW: test results I spoke with her about her results. Normal [facility] C GENITALon 06-26-2020 C GENITAL [facility] [address] [place] [id number] Name: TORREY ANTONY : 1990 Admitting Provider: Gender: Female Financial [phone] Number: Location: [facility]. Admit 06/22/2020 Date: Discharge 06/22/2020 Date: Microbiology PROCEDURE: C GENITAL [] SOURCE: VAGINAL BODY SITE: COLLECTED DATE/TIME: 06/22/2020 12:20 EST RECEIVED DATE/TIME: 06/23/2020 07:14 EST START DATE/TIME: 06/23/2020 07:14 EST FREE TEXT SOURCE: ORDERING PHYSICIAN: MERCEDES ARREAGAOGNAZ FINAL REPORTS Final Report [] Verified Date/Time: 06/26/2020 10:59 EST Normal Vaginal Darya isolated. STAINS GS [] Verified Date/Time: 06/23/2020 08:45 EST Few epithelial cells Moderate Gram Positive Rods. Gram Stain consistent with normal vaginal secretions. ____ L=Low, H= High, *= Abnormal, C=Critical, f=Footnote, c=Corrected, i=Interp Data Name: TORREY ANTONY Print Date/ 06/28/2020 08:29 EST Time: Normal [facility] Comment on above: Performed By: #### 1 [id number] #### [facility] Services [address] [place] [address] Straightening Press Operator: Yobany Diaz MD GP [place] 06-23-2020 Genprobe Chlamydia Negative Normal [facility] Comment on above: Order Comment: Order ed on [facility]# [id number] Result Comment: This Chlamydia assay is being performed via a second generation NAAT that utilizes target capture, transcription coordinator mediated amplification and dual kenetic assay technologies. Performed By: #### C [id number], [id number], [id number] ####[facility] [address] [place] [address] Medical Director: Yobany Diaz MD GP GCon 06-23-2020 Genprobe GC Negative Normal [facility] Comment on above: Order Comment: Order ed on Fin# [id number] Result Comment: This Gonorrhoea assay is being performed via a second generation NAAT that utilizes target capture, transcription coordinator mediated amplification and dual kenetic assay technologies. Performed By: #### C D:[id number], [id number], [id number] ####[facility] [address] [place] [address] Medical Director: Yobany Diaz MD GP Trichomonason 06-23-2020 GP Trichomonas Negative Normal [facility] Comment on above: Order Comment: Order ed on Fin# [id number] Result Comment: This Trichomonas assay is being performed via a second generation NAAT that utilizes target capture, transcription coordinator mediated amplification and dual kenetic assay technologies. Performed By: #### C D:[id number], [id number], [id number] ####[facility] [address] [place] [address] Medical Director: Yobany Diaz MD HEP B AGon 06-23-2020 Hepatitis B Surface Antigen Non-Reactive Normal [facility] Comment on above: Order Comment: Order ed on Fin# [id number] Result Comment: High levels of serum biotin may interfere with this test. Performed By: #### 1 [id number], [id number] #### [facility] [address] [place] [address] Straightening Press Operator: Yobany Diaz MD HEP C ABon 06-23-2020 Hepatitis C Antibody Non-Reactive Normal [facility] Comment on above: Order Comment: Order ed on Fin# [id number] Performed By: #### 1 [id number], [id number] #### [facility] [address] [place] [address] Straightening Press Operator: Yobany Diaz MD HIV 1O2on 06-23-2020 HIV Panel 1&2 Non-Reactive Normal [facility] Comment on above: Order Comment: Order ed on Fin# [id number] Performed By: #### 1 [id number] #### [facility] [address] [place] [address] Straightening Press Operator: Yobany Diaz MD RPRon 06-23-2020 Reagin Ab RPR Ql (S) Non-Reactive Normal [facility] Comment on above: Order Comment: Order ed on Fin# [id number] Performed By: #### 1 51716 #### [facility] [address] [place] [address] Straightening Press Operator: Yobany Diaz MD [facility] Amb[facility] Clinical Summary TORREY ANTONY :1990 [...] ROBLES 2020 11:30 AM EST With: MERCEDES ARREAGAOGNAZ Where: [facility] [place] You Need to Schedule [...] call to get immediate medical attention! Normal [facility] Phone Msgon 06-22-2020 Phone Msg - From: Johnna Wilkinson To: John ALEGRIA, Kathleen; Sent: 06/22/2020 12:48:37 EST Subject: Cytotec Patient is scheduled to have her Kyleena removed and Anjana inserted on 07/[address]. She does not get periods. Will you please call her in a prescription for the cytotec?? She is aware that she needs to pick it up when it is called in. Cytote proposed Normal [facility] US TV ECHO NON OB OFFICE REVA [...] position and orientation. Normal left ovary. Normal [facility] Comment on above: Order Comment: Order ed on Fin# [id number] Result Comment: Tech nologist: LEE Dictated By: NAZ LONG MD, FACOG Signed By: NAZ LONG MD, FACOG Transcribed: 06.22.2020 14:34 Signed Out: 06/22/20 14:34:04 Operative Reporton 0 Operative Report MR#: [id number] S [facility] Pt. Name: Torrey Antony Room #: 0C Discharge Date: Birthdate: 1990 OPERATIVE REPORT DATE OF SURGERY: 04/26/2020 SURGEON: Frances Nicole M.D. EARLY CHILDHOOD DIRECTOR: Maribel Vazquez MD PREOPERATIVE DIAGNOSIS: Left wrist [...] for the entire procedure. Date Dict: 04/26/2020/09:00 Mathew/Maribel Vazquez MD Date Trans: 04/26/2020 11:31 A/simran [id number] cc: Miriam Reeves, AUTO APPRENTICE MECHANIC [address] [facility] [address] Normal The [facility] POC GLUCOSE LABon 04-26-2020 Glucose [Mass/Vol] 81 mg/dL Normal 70-100 The [facility] Comment on above: Performed By: #### 8 5499 #### [facility] [address] POC URINE PREGNANCYon 2019 Beta HCG ( test) Ql (U) Negative Normal NEGATIVE The [facility] Comment on above: Result Comment: Perf ormed in PACU Performed By: #### 8 4140 #### [address] *SARS-CoV-2 COVID-19on 04-24 SARS-CoV-2 (COVID-19) RNA OK+probe Ql (Unsp spec) Not detected Normal Not Detected The [facility] Comment on above: Order Comment: The A ptima SARS-CoV-2 assay is a nucleic acid amplification test intended for the qualitative detection of RNA from SARS-CoV-2 isolated and purified from nasopharyngeal (HOME DESIGNER),oropharyngeal (OP), nasal swab, sputum, and bronchoalveolar lavage (BAL) specimens from patients with signs and symptoms of infection who are suspected of COVID-19. Results are for the identification of SARS-CoV-2 RNA. The SARS-CoV-2 RNA is generally detectable during the acute phase of infection. The Aptima SARS-CoV-2 Assay on the Identia and Clayton Fusion system is intended for use by laboratory personnel specifically instructed and trained in the operation of the Clayton and Identia Fusion system. The Aptima SARS-CoV-2 assay is [...] information. Performed By: #### 3 1792 #### [address] NM Hepatobiliary System w/ P fonseca 06-12-2017 NM Hepatobiliary System w/ Pharm Patient Name: TORREY ANTONY Nuc Med Exam Date/Time 06/12/2017 13:09:26 EST Exam NM Hepatobiliary Duct System Imaging Ordering Physician ROSENDODO MOSCOSO PAUL FRANCIS Accession Number [id number] CPT4 Codes 04305 () Reason For Exam Nausea Report Study: [...] Transcribed Date and Time: 06/12/2017 1:28 Normal [facility] CNOVon 05-22-2017 CNOV Office Visit (WALKWA) TORREY ACEVEDO ([id number]) 1990 [facility] Time Provider Kccrzeghdl52/5/17 9:30 AM KAMRAN WALLIS) GABY During your visit today, we recorded the following information about you: Temperature Pulse Respiration Blood pressure 96.8 degrees 101/minute 16/minute 113/80 Weight 87.1 kgRachel Amee Wallis PA-C, PA 05/22/2017 10:14 AM Ktbzja2405/22/2017Patient presents with:Acute VisitSUBJECTIVE: This is a 24 [...] labs, fluids, or any imaging from this [facility] Care settingReferred to ER for further eval of pain- labs, fluids, may need imaging- [facility] ERVitals stable, no fever. She refused offer [...] with nausea, unspecified vomiting type - - 10/10 abdominal pain (tearful) - generalized, but more epigastric and RUQ - Recurring vomiting and nausea - Unable to keep food/fluids down Referred to ER for further eval of pain- labs, fluids, may need imaging No further questions. Follow up as needed. Barriers to learning: none. The patient verbalizes understanding and is in agreement with plan of care. Sameer KrishnamurthyMARCIN [facility] Networkrebecca [address], [address], [place] [address]Cbgsr: [phone]: [phone] P [place] 2016RE: Torrey AntonyTo Whom it May Concern:This is to certify that Torrey Antony was seen here for medical care.Please excuse them from work today.Thank you for your cooperation in this matter.Sincerely,Kamran Wallis PA-C(Electronically signed to expedite processing) Status:Closed by KAMRAN WALLIS on 05/22/17 Normal [facility] PROGRESSon 05-22-2017 PROGRESS HNO ID: [id number]: Kamran Lubin (Tatiana) Jesus Wallis: (none)Author Type: [...] unspecified vomiting type - ICD9:787.01, ICD10: R11.2- 03/27 abdominal pain (tearful) - generalized, but [...] pain- labs, fluids, may need imaging-[facility] ERVitals stable, no fever. She refused offer of antiemetics, PPI, and watchan see option for possible simply viral cause- and go to ER this afternoonif persisting. She would prefer ER now.No further questions.Follow up as needed.Barriers to learning: none.The patient verbalizes understanding and is in agreement with plan ofcare.Kamran Wallis PA-C Normal [facility] CR Chest PA/LATon 04-07-2017 CR Chest PA/LAT Patient Name: TORREY CAAL Diagnostic Radiology Exam Date/Time 04/07/2017 10:07:18 EDT Exam CR Chest PA/LAT Ordering Physician MD RUTHIE, MAURO Lubin Accession Number [id number] CPT4 Codes 04599 () Reason For Exam dyspnea Report CHEST [...] Transcribed Date and Time: 04/07/2017 10:25 Normal [facility] RF Small Bowel w/ Serial Ryan mson 01-01-2017 RF Small Bowel w/ Serial Films Patient Name: TORREY ANTONY Fluoroscopy Exam Date/Time 01/01/2017 10:06:32 EDT Exam RF Small Bowel w/ Serial Films Ordering Physician DO ROWELL PAUL FRANCIS Accession Number [id number] [facility] Codes 97382 () Reason For Exam epigastric pain Report [...] Transcribed Date and Time: 01/01/2017 11:18 Normal [facility] Surgical Pathologyon 06-27-2 017 Surgical Pathology [id number] [facility] DEPARTMENT OF [facility] PATHOLOGY AND LABORATORY MEDICINE [address] [place] [id number] Fax - FINAL SURGICAL PATHOLOGY REPORT NAME: TORREY ANTONY .O.B.: 1990 25 Y F BILLING NO.: [id number]: WENDO PROCEDURE 12/12/2016 DATE:SURGEON: MANI ROWELL DO [...] Submitted entirely in one cassette. (2ns, 1) MLC1/[id number]: The following statement applies to allimmunohistochemistry , in situ hybridization, molecular studies, andimmunofluorescence testing.The use of one or more reagents in the above tests is regulated as ananalyte specific reagent (ASR). These tests were developed and theirperformance characteristics determined by the clinical laboratories [facility]. They have not been cleared by the [...] false negativity on decalcified specimens.[place] [address]. DEPARTMENT OF PATHOLOGY AND LABORATORY MEDICINE [place], [place] [address] Normal [facility] Comment on above: Performed By: #### S UR ####Performing Lab is in report US Abdomen Limitedon 017 US Abdomen Limited Patient Name: TORREY CAAL Ultrasound Exam Date/Time 12/12/2016 12:25:54 EDT Exam US Abdomen Limited Ordering Physician DO ROWELL PAUL FRANCIS Accession Number [id number] CPT4 Codes 40656 () Reason For Exam epigasric pain Report [...] Transcribed Date and Time: 12/12/2016 3:07 Normal [facility] Anti-Nuclear Antibodyon 11-17 VLADISLAV Titer <1:40 Normal <1:40 [facility] Comment on above: Performed By: #### A NA ####[address] [address] Vital Signs Date Time Vital Sign Value Performing Clinician Facility 10-16-2023 14:50-0400 Body temperature 97.8 [degF] HOME DESIGNER-C Tiki Thomas Work Phone: [facility] 10-16-2023 14:50-0400 Diastolic blood pressure 78 mm[Hg] HOME DESIGNER-C Tiki Thomas Work Phone: [facility] 10-16-2023 14:50-0400 Heart rate 77 /min HOME DESIGNER-C Tiki Thomas Work Phone: [facility] 10-16-2023 14:50-0400 Respiratory rate 16 /min HOME DESIGNER-C Tiki Thomas Work Phone: [facility] 10-16-2023 14:50-0400 SaO2% (BldA) [Mass fraction] 98 % HOME DESIGNER-C Tiki Thomas Work Phone: [facility] 10-16-2023 14:50-0400 Systolic blood pressure 120 mm[Hg] HOME DESIGNER-C Tiki Thomas Work Phone: [facility] 10-16-2023 10:05-0400 Body height 165.1 cm HOME DESIGNER-C Tiki Thomas Work Phone: [facility] 10-16-2023 10:05-0400 Body weight 66.1 kg HOME DESIGNER-C Tiki Thomas Work Phone: [facility] 10-15-2023 16:25-0400 Diastolic blood pressure 80 mm[Hg] [facility] 10-15-2023 16:25-0400 Heart rate 95 /min [facility] 10-15-2023 16:25-0400 SaO2% (BldA) [Mass fraction] 99 % [facility] 10-15-2023 16:25-0400 Systolic blood pressure 102 mm[Hg] [facility] 03-22-2023 16:00-0400 Body height 167.64 cm Mark Myrick Other [facility] [employer] Other 03-22-2023 16:00-0400 Diastolic blood pressure 80 mm[Hg] Mark Myrick Other [facility] [employer] Other 03-22-2023 16:00-0400 SaO2% (BldA) [Mass fraction] 98 % Mark Myrick Other [facility] Other 03-22-2023 16:00-0400 Systolic blood pressure 120 mm[Hg] Mark Myrick Other [facility] Other 12-20-2022 09:00-0400 Body height 167.64 cm Arely Jackman Other [facility] Other 12-20-2022 09:00-0400 Body mass index (BMI) [Ratio] 30.37 kg/m2 Arely Jackman Other [facility] Other 12-20-2022 09:00-0400 Body weight 85.37 kg Arely Jackman Other [facility] Other 12-20-2022 09:00-0400 Diastolic blood pressure 70 mm[Hg] Arely Jackman Other [facility] Other 12-20-2022 09:00-0400 SaO2% (BldA) [Mass fraction] 99 % Arely Jackman Other [facility] Other 12-20-2022 09:00-0400 Systolic blood pressure 118 mm[Hg] Arely Jackman Other [facility] Other 12-14-2022 13:15-0400 Body height 167.64 cm Mark Ramez Other [facility] Other 12-14-2022 13:15-0400 Diastolic blood pressure 86 mm[Hg] Mark Myrick Other [facility] Other 12-14-2022 13:15-0400 SaO2% (BldA) [Mass fraction] 98 % Mark Myrick Other [facility] Other 12-14-2022 13:15-0400 Systolic blood pressure 122 mm[Hg] Mark Myrick Other [facility] Other 12-06-2022 13:08-0400 Diastolic blood pressure 84 mm[Hg] HOME DESIGNER-C Tiki Thomas Work Phone: [facility] 12-06-2022 13:08-0400 Heart rate 87 /min HOME DESIGNER-C Tiki Thomas Work Phone: [facility] 12-06-2022 13:08-0400 Respiratory rate 16 /min HOME DESIGNER-C Tiki Thomas Work Phone: [facility] 12-06-2022 13:08-0400 SaO2% (BldA) [Mass fraction] 98 % HOME DESIGNER-C Tiki Thomas Work Phone: [facility] 12-06-2022 13:08-0400 Systolic blood pressure 126 mm[Hg] HOME DESIGNER-C Tiki Thomas Work Phone: [facility] 12-06-2022 12:21-0400 Inhaled oxygen flow rate 3 L/min HOME DESIGNER-C Tiki Thomas Work Phone: [facility] 12-06-2022 09:28-0400 Body height 165.1 cm HOME DESIGNER-C Tiki Thomas Work Phone: [facility] 12-06-2022 09:28-0400 Body weight 85.27 kg HOME DESIGNER-C Tiki Thomas Work Phone: [facility] 10-16-2022 17:00-0400 Body height 167.64 cm Mark Myrick Other [facility] [employer] Other 10-16-2022 17:00-0400 Diastolic blood pressure 80 mm[Hg] Mark Myrick Other [facility] [employer] Other 10-16-2022 17:00-0400 SaO2% (BldA) [Mass fraction] 98 % Mark Myrick Other [facility] Other 10-16-2022 17:00-0400 Systolic blood pressure 122 mm[Hg] Mark Myrick Other [facility] Other 09-14-2022 16:30-0400 Body height 167.64 cm Mark Myrick Other [facility] Other 09-14-2022 16:30-0400 Body mass index (BMI) [Ratio] 30.73 kg/m2 Mark Myrick Other [facility] Other 09-14-2022 16:30-0400 Body weight 86.37 kg Mark Myrick Other [facility] Other 09-14-2022 16:30-0400 Diastolic blood pressure 78 mm[Hg] Mark Myrick Other [facility] Other 09-14-2022 16:30-0400 SaO2% (BldA) [Mass fraction] 99 % Mark Myrick Other [facility] Other 09-14-2022 16:30-0400 Systolic blood pressure 124 mm[Hg] Mark Myrick Other [facility] Other 08-24-2022 15:15-0500 Body height 167.64 cm Mark Myrick Other [facility] Other 08-24-2022 15:15-0500 Diastolic blood pressure 80 mm[Hg] Mark Myrick Other [facility] Other 08-24-2022 15:15-0500 SaO2% (BldA) [Mass fraction] 98 % Mark Myrick Other [facility] Other 08-24-2022 15:15-0500 Systolic blood pressure 120 mm[Hg] Mark Ramez Other [facility] Other 08-01-2022 10:45-0500 Body height 167.64 cm Mark Myrick Other [facility] Other 08-01-2022 10:45-0500 Diastolic blood pressure 80 mm[Hg] Mark Myrick Other [facility] Other 08-01-2022 10:45-0500 SaO2% (BldA) [Mass fraction] 99 % Mark Myrick Other [facility] Other 08-01-2022 10:45-0500 Systolic blood pressure 126 mm[Hg] Mark Myrick Other [facility] Other 05-24-2022 17:00-0500 Body height 167.64 cm Mark Myrick Other [facility] Other 05-24-2022 17:00-0500 Diastolic blood pressure Mark Myrick Other [facility] Other 05-24-2022 17:00-0500 Systolic blood pressure 110 mm[Hg] Mark Myrick Other [facility] Other 05-02-2022 15:15-0500 Body height 167.64 cm Arely Jackman Other [facility] Other 05-02-2022 15:15-0500 Body mass index (BMI) [Ratio] 31.53 kg/m2 Arely Jackman Other [facility] Other 05-02-2022 15:15-0500 Body weight 88.63 kg Arely Jackman Other [facility] Other 05-02-2022 15:15-0500 Diastolic blood pressure 64 mm[Hg] Arely Jackman Other [facility] Other 05-02-2022 15:15-0500 Respiratory rate 18 /min Arely Jackman Other [facility] Other 05-02-2022 15:15-0500 SaO2% (BldA) [Mass fraction] 99 % Arely Jackman Other [facility] Other 05-02-2022 15:15-0500 Systolic blood pressure 118 mm[Hg] Arely Jackman Other [facility] Other 02-03-2022 12:00-0400 Body height 167.64 cm Mark Medeirosky Other [facility] Other 02-03-2022 12:00-0400 Body mass index (BMI) [Ratio] 32.28 kg/m2 Mark Myrick Other [facility] Other 02-03-2022 12:00-0400 Body weight 90.72 kg Mark Myrick Other [facility] Other 02-03-2022 12:00-0400 Diastolic blood pressure 80 mm[Hg] Markandrés Myrick Other [facility] Other 02-03-2022 12:00-0400 SaO2% (BldA) [Mass fraction] 99 % Mark Ramez Other [facility] Other 02-03-2022 12:00-0400 Systolic blood pressure 120 mm[Hg] Mark Ramez Other [facility] Other 07-27-2022 16:45-0400 Body height 167.64 cm Mark Myrick Other [facility] Other 01-11-2022 16:45-0400 Diastolic blood pressure 80 mm[Hg] Mark Ramez Other [facility] Other 01-11-2022 16:45-0400 SaO2% (BldA) [Mass fraction] 99 % Mark Ramez Other [facility] Other 01-11-2022 16:45-0400 Systolic blood pressure 124 mm[Hg] Mark Ramez Other [facility] Other 12-26-2021 12:30-0400 Body height 167.64 cm Mark Myrick Other [facility] Other 12-26-2021 12:30-0400 Body mass index (BMI) [Ratio] 33.25 kg/m2 Mark Myrick Other [facility] Other 12-26-2021 12:30-0400 Body weight 93.44 kg Mark Myrick Other [facility] Other 12-26-2021 12:30-0400 Diastolic blood pressure 80 mm[Hg] Mark Ramez Other [facility] Other 12-26-2021 12:30-0400 SaO2% (BldA) [Mass fraction] 99 % Mark Myrick Other [facility] Other 12-26-2021 12:30-0400 Systolic blood pressure 124 mm[Hg] Mark Ramez Other [facility] Other 11-24-2021 14:45-0400 Body height 167.64 cm Mark Myrick Other [facility] Other 11-24-2021 14:45-0400 Body mass index (BMI) [Ratio] 34.05 kg/m2 Mark Myrick Other [facility] Other 11-24-2021 14:45-0400 Body weight 95.71 kg Mark Myrick Other [facility] Other 11-24-2021 14:45-0400 Diastolic blood pressure 80 mm[Hg] Mark Myrick Other [facility] Other 11-24-2021 14:45-0400 SaO2% (BldA) [Mass fraction] 99 % Mark Myrick Other [facility] Other 11-24-2021 14:45-0400 Systolic blood pressure 122 mm[Hg] Mark Myrick Other [facility] Other 11-11-2021 11:00-0400 Body height 167.64 cm Mark Myrick Other [facility] Other 11-11-2021 11:00-0400 Body mass index (BMI) [Ratio] 33.89 kg/m2 Mark Myrick Other [facility] Other 11-11-2021 11:00-0400 Body weight 95.26 kg Mark Myrick Other [facility] Other 11-11-2021 11:00-0400 Diastolic blood pressure 82 mm[Hg] Mark Myrick Other [facility] Other 11-11-2021 11:00-0400 SaO2% (BldA) [Mass fraction] 93 % Mark Myrick Other [facility] Other 11-11-2021 11:00-0400 Systolic blood pressure 126 mm[Hg] Mark Myrick Other [facility] Other 10-20-2021 12:15-0400 Body height 167.64 cm Arely Jackman Other [facility] Other 10-20-2021 12:15-0400 Body mass index (BMI) [Ratio] 33.25 kg/m2 Arely Jackman Other [facility] Other 10-20-2021 12:15-0400 Body weight 93.44 kg Arely Jackman Other [facility] Other 10-20-2021 12:15-0400 Diastolic blood pressure 74 mm[Hg] Arely Jackman Other [facility] Other 10-20-2021 12:15-0400 Systolic blood pressure 104 mm[Hg] Arely Jackman Other [facility] Other 10-18-2021 12:15-0400 Body height 167.64 cm Tkii Quinonez Other [facility] Other 10-18-2021 12:15-0400 Body mass index (BMI) [Ratio] 33.41 kg/m2 Tiki Quinonez Other [facility] Other 10-18-2021 12:15-0400 Body temperature 98.7 [degF] Tiki Quinonez Other [facility] Other 10-18-2021 12:15-0400 Body weight 93.9 kg Tiki Quinonez Other [facility] Other 10-18-2021 12:15-0400 Diastolic blood pressure 88 mm[Hg] Tiki Quinonez Other [facility] Other 10-18-2021 12:15-0400 Respiratory rate 18 /min Tiki Quinonez Other [facility] Other 10-18-2021 12:15-0400 SaO2% (BldA) [Mass fraction] 99 % Tiki Quinonez Other [facility] Other 10-18-2021 12:15-0400 Systolic blood pressure 123 mm[Hg] Tiki Quinonez Other [facility] Other 09-14-2021 14:00-0400 Body height 167.64 cm Mark Myrick Other [facility] Other 09-14-2021 14:00-0400 Body mass index (BMI) [Ratio] 33.54 kg/m2 Mark Myrick Other [facility] Other 09-14-2021 14:00-0400 Body weight 94.26 kg Makr Myrick Other [facility] Other 09-14-2021 14:00-0400 SaO2% (BldA) [Mass fraction] 99 % Mark Myrick Other [facility] Other 08-29-2021 11:15-0400 Body height 167.64 cm Mark Myrick Other [facility] Other 08-29-2021 11:15-0400 Body mass index (BMI) [Ratio] 2.19 kg/m2 Mark Myrick Other [facility] Other 08-29-2021 11:15-0400 Body weight 6.17 kg Mark Myrick Other [facility] Other 08-29-2021 11:15-0400 Diastolic blood pressure 70 mm[Hg] Mark Myrick Other [facility] Other 08-29-2021 11:15-0400 SaO2% (BldA) [Mass fraction] 99 % Mark Myrick Other [facility] Other 08-29-2021 11:15-0400 Systolic blood pressure 110 mm[Hg] Mark Myrick Other [facility] Other 08-11-2021 11:45-0500 Body height 167.64 cm Arely Jackamn Other [facility] Other 08-11-2021 11:45-0500 Body mass index (BMI) [Ratio] 34.59 kg/m2 Arely Jackman Other [facility] Other 08-11-2021 11:45-0500 Body weight 97.21 kg Arely Jackman Other [facility] Other 08-11-2021 11:45-0500 Diastolic blood pressure 64 mm[Hg] Arely Jackman Other [facility] Other 08-11-2021 11:45-0500 Respiratory rate 18 /min Arely Jackman Other [facility] Other 08-11-2021 11:45-0500 SaO2% (BldA) [Mass fraction] 98 % Arely Jackman Other [facility] Other 08-11-2021 11:45-0500 Systolic blood pressure 108 mm[Hg] Arely Jackman Other [facility] Other 07-28-2021 11:30-0500 Body height 167.64 cm Arely Jackman Other [facility] Other 07-28-2021 11:30-0500 Body mass index (BMI) [Ratio] 34.76 kg/m2 Arely Jackman Other [facility] Other 07-28-2021 11:30-0500 Body weight 97.71 kg Arely Jackman Other [facility] Other 07-28-2021 11:30-0500 Diastolic blood pressure 62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
== END 2024-05-06 14:36 | disposition home or self-care (01) ==
LOC: PM 14:35
PROVIDERS: PCP Nurse Practitioner Family; Visit Provider Anesthesiology Pain Medicine
DX: M79.632 Pain in left forearm (principal)
CPT/HCPCS: G0463

== ENCOUNTER 2024-06-19 13:48 | Outpatient (OUT) | payer OTHER, SELFPAY ==
--- NOTE | 2024-06-19 13:52 | US_ITS ---
Patient Name: TORREY GAYLE MR#: [id number] : 1990 Exam Date: 06/19/2024 Ordering Doctor: OCTAVIA THOMAS CNP RADIOLOGY REPORT PROCEDURE: MM TOMOSYNTHESIS DIAGNOSTIC BI, 06/19/2024, 13:51 US BREAST RT LIMITED, 06/19/2024, 14:09 COMPARISON: None. INDICATIONS: Breast Lump Calculator Name NCI Breast Cancer Risk Assessment Tool 5 Year Breast Cancer Risk Not Applicable. Lifetime Breast Cancer Risk Not Applicable. Personal Breast Cancer No Personal Ovarian Cancer No Treatments None Family Cancers Grandmother-maternal with ovarian cancer at age 65. LOCATION: [facility] BREAST COMPOSITION: The breasts are heterogeneously dense,which may obscure small masses. FINDINGS: DIAGNOSTIC CATEGORY 2--BENIGN FINDING. NO CHANGE FROM COMPARISON. RIGHT BREAST: No significant suspicious finding. The right breast is asymmetrically enlarged compared to the left with significant increase in fibroglandular density. No focal architectural distortion or suspicious calcifications. Ultrasound demonstrates heterogeneous fibroglandular tissue with no focal mass. LEFT BREAST: No significant suspicious finding. RECOMMENDATIONS: CLINICAL EVALUATION. PLEASE NOTE: A NORMAL MAMMOGRAM DOES NOT EXCLUDE THE POSSIBILITY OF BREAST CANCER. A CLINICALLY SUSPICIOUS PALPABLE LUMP SHOULD BE BIOPSIED. Dictated by: Deepak Ellis MD on 06/19/2024 at 14:30 Approved by: Deepak Ellis MD on 06/19/2024 at 14:33
== END 2024-06-19 13:49 | disposition home or self-care (01) ==
LOC: MAMMO 13:48
PROVIDERS: PCP Nurse Practitioner Family; Visit Provider Nurse Practitioner Family
DX: R92.8 Other abnormal and inconclusive findings on diagnostic imaging of breast (principal); N63.0 Unspecified lump in unspecified breast; Z80.41 Family history of malignant neoplasm of ovary
CPT/HCPCS: 76642; 77066; G0279

== ENCOUNTER 2024-06-23 20:30 | Emergency (ER) | payer OTHER, SELFPAY ==
[2024-06-23] VITALS (16 sets, daily range): BP systolic 98–126; BP diastolic 70–94; PULSE 77–110; TEMP 36.6–36.8; O2SAT 97–100; BMI 22.3
--- NOTE | 2024-06-23 20:47 | PC.NURSE ---
this patient complains of abdomen pain, nausea and diarrhea onset 2 weeks ago. this patient has not seen her pcp for these complaints, this patient voices no other complaints and shows no signs of distress. this patient did provide a small amount of urine which i took to lab dept
--- NOTE | 2024-06-23 20:51 | ED.NAVMDI1 ---
HPI - Nausea/Vomiting/Diarrhea General Chief complaint: Nausea/Vomiting/Diarrhea Stated complaint: nausea/vomiting Time Seen by Provider: 06/23/24 20:33 Source: patient Mode of arrival: walk-in Limitations: no limitations History of Present Illness HPI Narrative: This 33-year-old female presents for evaluation of nausea vomiting and diarrhea. The patient states the symptoms started around [place]. She woke up 1 morning and did not feel well. Since that time she has had ongoing nausea with intermittent episodes of vomiting and nonstop diarrhea. She states that every time she tries to eat or drink something she becomes nauseated and has an episode of watery stool. She has not had any fever. She has generalized abdominal pain. She has not recently been on any antibiotics. She has not taken any trips out of the country or been on any cruise ships. She denies any chest pain or shortness of breath. She denies the possibility of because she has had a hysterectomy. She states that her family members have not been sick. She thinks she has lost between 5 and 10 pounds. She stopped taking Ozempic 3 months ago for weight loss after losing approximately 75 pounds. She does not have a history of irritable bowel syndrome or any chronic GI issues. She has not had any blood in her stool. Related Data Home Medications ?Medication ?Instructions ?Recorded ?Confirmed dextroamphetamine-amphetamine 15 15 mg PO DAILY 08/28/23 06/23/24 mg tablet (Adderall) metoprolol tartrate 50 mg tablet 25 mg PO BID 08/28/23 06/23/24 (Lopressor) multivitamin 1 tab PO DAILY 08/28/23 06/23/24 ondansetron HCl 4 mg tablet 4 mg PO PRN nausea and vomiting 06/23/24 Allergies Allergy/AdvReac Type Severity Reaction Status Date / Time Penicillins Allergy Severe Hives Verified 06/23/24 20:43 Review of Systems ROS Status of ROS 10 or more systems reviewed and unremarkable except as noted in history and below PFSH PFSH Social History Little interest or pleasure in doing things: not at all Feeling down, depressed, or hopeless: not at all Exam Narrative Exam Narrative: Vital signs and Nursing Notes reviewed: Patient is afebrile with a normal pulse, normal blood pressure, she is not hypoxic with pulse ox of 99% on room air General: Awake, alert, oriented, no acute distress, lying comfortably on the stretcher HEENT: Normocephalic atraumatic, mucous membranes are dry, no scleral icterus Neck: Supple, no meningeal signs, no anterior or posterior cervical lymphadenopathy Chest: Lungs are clear to auscultation with good air entry, there is no wheezing rhonchi or rales appreciated no accessory muscle use, patient is speaking in complete sentences-no chest wall tenderness to palpation CVS: Regular rate and rhythm S1-S2, no murmurs rubs or gallops, pulses are brisk and equal bilaterally ABD: Soft, nondistended, generalized abdominal tenderness without rebound guarding or rigidity, bowel sounds are mildly hyperactive Extremities: Moving all extremities, no lower extremity tenderness or swelling noted, negative Homans' sign, pulses are brisk and equal bilaterally Skin: Normal in appearance without rash,pallor, petechiae or purpura Neuro: No focal deficits Constitutional Vital Signs, click to edit/add: Last Vital Signs Temp 98.3 F 06/23/24 22:23 Pulse 77 06/23/24 22:23 Resp 18 06/23/24 22:23 BP 119/86 06/23/24 22:23 Pulse Ox 100 06/23/24 22:23 O2 Del Method Room Air 06/23/24 20:34 Course Vital Signs Vital signs: Vital Signs Temperature 97.9 F 06/23/24 20:34 Pulse Rate 85 06/23/24 20:34 Respiratory Rate 18 06/23/24 20:34 Blood Pressure 117/79 06/23/24 20:34 Pulse Oximetry 99 06/23/24 20:34 Oxygen Delivery Method Room Air 06/23/24 20:34 Temperature 98.3 F 06/23/24 22:23 Pulse Rate 77 06/23/24 22:23 Respiratory Rate 18 06/23/24 22:23 Blood Pressure 119/86 06/23/24 22:23 Pulse Oximetry 100 06/23/24 22:23 Oxygen Delivery Method Room Air 06/23/24 20:34 MDM - Nausea/Vomiting/Diarrhea MDM Narrative Medical decision making narrative: This 33-year-old female who is otherwise healthy presents for evaluation of nausea vomiting and diarrhea that started approximately 2 weeks ago. She has ongoing nausea but has not vomited in the past 24 hours. She does have ongoing watery diarrhea. She states that anything she eats or drinks runs right through her. She has not had any fever. She has generalized abdominal pain. She denies any recent travel out of the country. She has not had any blood in her stool. She was mildly tachycardic upon arrival with orthostatics with a pulse of 110. The remainder of her vital signs were stable. Her mucous membranes are slightly dry. An IV was placed and she was medicated with IV fluids, Bentyl and Zofran. She had mild relief of her nausea with this but was still nauseated and having pain. I was reluctant to give her any pain medication before I saw the results of her labs. She has a normal white count and hemoglobin. Electrolytes are normal with a mild decrease in her potassium at 3.3. Liver function tests are normal. Lactic acid is normal. She was given additional liter of normal saline, IV Toradol and Reglan with Benadryl with improvement in her symptoms. The skin of the abdomen pelvis with IV contrast was ordered and shows an enteritis and multiple loops of bowel without any other acute findings. The results of the CT scan were discussed with the patient and she was given a copy for her records. She has been taking Zofran at home without clinical improvement. She will be discharged home after being given a dose of Lomotil in the emergency department with prescription for Reglan and Lomotil as well as Bentyl for cramping. She was encouraged to drink plenty of fluids and discontinue the Lomotil as soon as her diarrhea stopped to avoid constipation. She is in agreement with this plan. She has not had any episodes of diarrhea while in the emergency department and declined taking anything by mouth to induce any diarrhea. She will be given a cup and requisition to drop off a sample to the lab for testing. Medical Records Medical records narrative: The [address] [address] [address] Scan Report Signed Patient: TORREY GAYLE MR#: [id number] : 1990 Acct:[id number] Age/Sex: 33 / F ADM Date: 06/23/24 Loc: ER Attending Dr: Ordering Physician: Floridalma Valentin Date of Service: 06/23/24 Procedure(s): CT abdomen pelvis w con Accession Number(s): [id number] cc: OCTAVIA THOMAS ~ The [address] [address] Patient Name: TORREY GAYLE MRN: [id number] date: 1990 Sex: F Assigned Patient Location: ER Current Patient Location: ER Accession/Order Number: [id number] Exam Date: 06/23/2024 22:13 Report Date: 06/23/2024 22:57 At the request of: FLORIDALMA MARKER Procedure: CT abdomen pelvis w con CT ABDOMEN AND PELVIS WITH CONTRAST: INDICATION: diarrhea, abd pain. COMPARISON: None. TECHNIQUE:Multiple thin section transaxial slices were acquired through the abdomen and pelvis with intravenous contrast. Coronal and sagittal reconstructed images were reviewed. Oral contrastWas not administered. FINDINGS: LOWER CHEST: The lower chest is unremarkable. LIVER: The liver is unremarkable. GALLBLADDER AND BILIARY SYSTEM: No obvious ductal dilation. No calcified stones. SPLEEN: The spleen is unremarkable. PANCREAS: The pancreas is unremarkable. ADRENAL GLANDS: The adrenal glands are unremarkable. KIDNEYS AND URETERS: There is no hydronephrosis of the kidneys.No obstructing urologic calcifications are present. VASCULATURE: Vascularity is unremarkable. PERITONEUM/RETROPERITONEUM: There is a small amount of free fluid within the pelvis. There is no free air. LYMPH NODES: No suspicious lymphadenopathy. GASTROINTESTINAL TRACT: The bowel is normal in caliber.Circumferential wall thickening is present in multiple loops of small bowel in the upper abdomen concerning for enteritis. There are no acute inflammatory changes present in the colon.The appendix is visualized and is not inflamed. BLADDER: The urinary bladder is unremarkable. REPRODUCTIVE SYSTEM: There is an involuting follicle in the left ovary measuring 1.5 cm. BODY WALL: There is a tiny fat-containing umbilical hernia. BONES: Osseous structures are unremarkable. CT/CT abdomen pelvis w con IMPRESSION: Diffuse circumferential wall thickening associated with multiple loops of small bowel in the abdomen concerning for enteritis. Electronically authenticated by: LYNN GRACE Date: 06/23/2024 22:57 Lab Data Labs: Lab Results 06/23/24 Range/Units 21:05 WBC 5.6 (4.0-11.0) 10^3/uL RBC 4.37 (4.20-5.40) 10^6/uL Hgb 13.5 (12.0-16.0) g/dL Hct 39.7 (36.0-48.0) % MCV 90.8 (81.0-99.0) fL MCH 30.9 (26.7-34.0) pg MCHC 34.0 (29.9-35.2) g/dL RDW 13.2 (11.0-15.0) % Plt Count 187 (150-450) 10^3/uL MPV 11.9 (9.5-13.5) fL Neut % (Auto) 60.4 (43.0-75.0) % Lymph % (Auto) 30.8 (20.5-60.0) % [place] % (Auto) 7.0 (1.7-12.0) % Eos % (Auto) 1.1 (0.9-7.0) % Baso % (Auto) 0.2 (0.2-2.0) % Neut # (Auto) 3.4 (1.4-6.5) 10^3/uL Lymph # (Auto) 1.7 (1.2-3.8) 10^3/uL [place] # (Auto) 0.4 (0.3-0.8) 10^3/uL Eos # (Auto) 0.1 (0.0-0.7) 10^3/uL Baso # (Auto) 0.0 (0.0-0.1) 10^3/uL Abs Immat Gran (auto) 0.03 (0.00-0.03) 10^3/uL Imm/Tot Granulo (auto) 0.5 (0.0-0.5) % Sodium 143 (136-145) mmol/L Potassium 3.3 L (3.5-5.1) mmol/L Chloride 106 (98-107) mmol/L Carbon Dioxide 26.6 (21.0-32.0) mmol/L Anion Gap 13.7 BUN 14.0 (7.0-18.0) mg/dL Creatinine 0.83 (0.55-1.02) mg/dL Est GFR ( Amer) >60 (>=60 mL/min/1.73m^2) Est GFR (Non-Af Amer) >60 (>=60 mL/min/1.73m^2) BUN/Creatinine Ratio 16.9 Glucose 84 (74-106) mg/dL Lactate 0.9 (0.4-2.0) mmol/L Calcium 8.7 (8.5-10.1) mg/dL Total Bilirubin 0.4 (0.2-1.0) mg/dL AST 10 L (15-37) U/L ALT 18 (14-59) U/L Alkaline Phosphatase 61 (46-116) U/L Total Protein 6.6 (6.4-8.2) g/dL Albumin 3.5 (3.4-5.0) g/dL Globulin 3.1 g/dL Albumin/Globulin Ratio 1.1 Discharge Plan Discharge Chief Complaint: Nausea/Vomiting/Diarrhea Clinical Impression: Enteritis Patient Disposition: Home, Self-Care Time of Disposition Decision: 23:21 Condition: Good Prescriptions / Home Meds: No Action metoprolol tartrate [Lopressor] 50 mg tablet 25 mg PO BID multivitamin Tablet 1 tab PO DAILY dextroamphetamine-amphetamine [Adderall] 15 mg tablet 15 mg PO DAILY ondansetron HCl 4 mg tablet 4 mg PO PRN (Reason: nausea and vomiting) Print Language: Norwegian Instructions: Acute Nausea and Vomiting (ED), Acute Diarrhea (ED), Enteritis (ED) Referrals: OCTAVIA THOAMS [Primary Care Provider] - 1 week
[2024-06-23 21:12] LABS: Basophils Percent Auto 0.2 % (0.2-2.0); Eosinophils Absolute Auto 0.1 10^3/uL (0.0-0.7); Eosinophils Percent Auto 1.1 % (0.9-7.0); Hematocrit 39.7 % (36.0-48.0); Hemoglobin 13.5 g/dL (12.0-16.0); Immature Granulocytes Abs Auto 0.03 10^3/uL (0.00-0.03); Immature Granulocytes Pct Auto 0.5 % (0.0-0.5); Lymphocytes Absolute Auto 1.7 10^3/uL (1.2-3.8); Lymphocytes Percent Auto 30.8 % (20.5-60.0); Mean Corpuscular Hemoglobin 30.9 pg (26.7-34.0); Mean Corpuscular Volume 90.8 fL (81.0-99.0); Mean Platelet Volume 11.9 fL (9.5-13.5); Monocytes Absolute Auto 0.4 10^3/uL (0.3-0.8); Neutrophils Absolute Auto 3.4 10^3/uL (1.4-6.5); Neutrophils Percent Auto 60.4 % (43.0-75.0); Platelet Count 187 10^3/uL (150-450); Red Blood Count 4.37 10^6/uL (4.20-5.40); Red Cell Distribution Width 13.2 % (11.0-15.0); White Blood Count 5.6 10^3/uL (4.0-11.0)
[2024-06-23] MEDS: ONDANSETRON PF 4 MG/2 ML VIAL IV (21:17)
[2024-06-23] MEDS: 0.9 % SODIUM CHLORIDE 1,000 ML 1000 ML IV ×2 (21:17→22:42)
[2024-06-23] MEDS: DICYCLOMINE HCL 10 MG CAPSULE 20 MG PO (21:17)
--- NOTE | 2024-06-23 21:31 | PC.NURSE ---
this patient aware that we are waiting on test results to come back, this patient voices no concerns and shows no signs of distress
[2024-06-23 21:33] LABS: Lactate/Lactic Acid 0.9 mmol/L (0.4-2.0)
[2024-06-23 21:36] LABS: Alanine Aminotransferase 18 U/L (14-59); Albumin Globulin Ratio 1.1; Albumin Level 3.5 g/dL (3.4-5.0); Alkaline Phosphatase 61 U/L (46-116); Anion Gap 13.7; Aspartate Amino Transferase 10 U/L (15-37); BUN Creatinine Ratio 16.9; Bilirubin Total 0.4 mg/dL (0.2-1.0); Calcium 8.7 mg/dL (8.5-10.1); Carbon Dioxide 26.6 mmol/L (21.0-32.0); Chloride 106 mmol/L (98-107); Estimated GFR (African America >60 (>=60 mL/min/1.73m^2); Estimated GFR (Non-African Ame >60 (>=60 mL/min/1.73m^2); Globulin 3.1 g/dL; Glucose 84 mg/dL (74-106); Potassium 3.3 mmol/L (3.5-5.1); Sodium 143 mmol/L (136-145); Total Protein 6.6 g/dL (6.4-8.2)
--- NOTE | 2024-06-23 21:47 | PC.NURSE ---
this patient voices abdomen pain and nausea are not better, this patient voices no other concerns and shows no signs of distress
--- NOTE | 2024-06-23 21:51 | CT_ITS ---
The [address] [address] Patient Name: TORREY GAYLE MRN: [id number] date: 1990 Sex: F Assigned Patient Location: ER Current Patient Location: ER Accession/Order Number: [id number] Exam Date: 06/23/2024 22:13 Report Date: 06/23/2024 22:57 At the request of: LUNA MARKER Procedure: CT abdomen pelvis w con CT ABDOMEN AND PELVIS WITH CONTRAST: INDICATION: diarrhea, abd pain. COMPARISON: None. TECHNIQUE:Multiple thin section transaxial slices were acquired through the abdomen and pelvis with intravenous contrast. Coronal and sagittal reconstructed images were reviewed. Oral contrastWas not administered. FINDINGS: LOWER CHEST: The lower chest is unremarkable. LIVER: The liver is unremarkable. GALLBLADDER AND BILIARY SYSTEM: No obvious ductal dilation. No calcified stones. SPLEEN: The spleen is unremarkable. PANCREAS: The pancreas is unremarkable. ADRENAL GLANDS: The adrenal glands are unremarkable. KIDNEYS AND URETERS: There is no hydronephrosis of the kidneys.No obstructing urologic calcifications are present. VASCULATURE: Vascularity is unremarkable. PERITONEUM/RETROPERITONEUM: There is a small amount of free fluid within the pelvis. There is no free air. LYMPH NODES: No suspicious lymphadenopathy. GASTROINTESTINAL TRACT: The bowel is normal in caliber.Circumferential wall thickening is present in multiple loops of small bowel in the upper abdomen concerning for enteritis. There are no acute inflammatory changes present in the colon.The appendix is visualized and is not inflamed. BLADDER: The urinary bladder is unremarkable. REPRODUCTIVE SYSTEM: There is an involuting follicle in the left ovary measuring 1.5 cm. BODY WALL: There is a tiny fat-containing umbilical hernia. BONES: Osseous structures are unremarkable. CT/CT abdomen pelvis w con IMPRESSION: Diffuse circumferential wall thickening associated with multiple loops of small bowel in the abdomen concerning for enteritis. Electronically authenticated by: LYNN GRACE Date: 06/23/2024 22:57
[2024-06-23] MEDS: METOCLOPRAMIDE HCL 10 MG/2 ML VIAL IVP (22:24)
[2024-06-23] MEDS: DIPHENHYDRAMINE HCL 50 MG/ML VIAL 12.5 MG IV (22:24)
[2024-06-23] MEDS: KETOROLAC TROMETHAMINE 30 MG/ML VIAL IVP (22:25)
--- NOTE | 2024-06-23 23:38 | PC.NURSE ---
i gave this patient verbal and paper discharge orders along with 4 Rx, and this patient voices yes to understanding these. at time of discharge this patient voices no concerns and shows no signs of distress. this patient was given items to collected her stool sample that she is aware that she must return this sample to the lab dept at this hospital
== END 2024-06-23 23:47 | disposition home or self-care (01) ==
PROVIDERS: Emergency Provider Emergency Medicine; PCP Nurse Practitioner Family
DX: K52.9 Noninfective gastroenteritis and colitis, unspecified (principal); R10.84 Generalized abdominal pain; Z90.710 Acquired absence of both cervix and uterus
CPT/HCPCS: 36415; 74177; 80053; 83605; 85025; 96361; 96374; 96375; 99285; J1200; J1885; J2405; J2765; Q9967

== ENCOUNTER 2024-07-08 10:22 | Outpatient (OUT) | payer OTHER, SELFPAY ==
--- NOTE | 2024-07-08 | CONS_ITS ---
PROCEDURE DATE: 07/08/2024 PROCEDURE: Trigger point injection left extensor digitorum. 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 SOLUTION USED FOR INJECTION: 2 mL of 2% lidocaine, 2 mL of 0.25% Marcaine and 40 mg of Kenalog, total of 5 mL, and 5 mL used for the injection in divided doses. IMMEDIATE COMPLICATIONS: None. PROCEDURE: After informed consent was obtained from the patient, placed in the sitting position. Skin overlying the area was prepped with alcohol. A 25 gauge, 1?? needle inserted into the substance of the left extensor digitorum muscle. A total of 5 mL was given in three divided doses in three different locations. No indication of intravascular or intraneural needle tip placement or injection. Patient discharged home after meeting criteria. Follow up with the patient in two weeks? time or sooner if needed. ALE[facility]
--- OUTSIDE RECORDS SUMMARY | 2024-07-08 10:43 | XMS_ITS | CCD ---
Author Organization [facility] Care Team Providers Care Printing Estimator Name Role Phone Turowski, Mani Unavailable Unavailable [...] Primary Care Unavailable JULIUS, MIRIAM Referring Unavailable [place] Procedure Practitioner Unavailab le BONNIE, ABDULAZIM Attending Unavailable BONNIE, ABDULAZIM Surgeon Unavailable BONNIE, ABDULAZIM Admitting Unavailable JULIUS, MIRIAM Referring Unavailable JULIUS, MIRIAM Primary Care Unavailable [place] Procedure Practitioner Unavailab salvador Myrick, Mark Unavailable [...] Care Provider DO Oh Aparicio Emergency Provider [phone] Tiki Thomas Primary Care Unavailable Mark Myrick Attending Unavailable Mark Myrick Admitting Unavailable Oh Aparicio Attending Unavailable Oh Aparicio Admitting Unavailable Tiki Thomas Primary Care Unavailable KRANTHI ACHARYA Attending Unavailable KRANTHI ACHARYA Admitting Unavailable Provider, None Primary Care Unavailable Allergies Allergy Classification Reported Allergen(s) Allergy Type Date of Onset Reaction(s) Facility Penicillins (antibiotic) (1 source) Penicillin; Translations: [PENICILLIN] Drug Allergy 0 [facility] Repository (20 sources) Bee/Wasp/Ant venom Propensity to adverse reactions localized reaction [facility] Other (20 sources) Penicillin Drug Allergy [employer] [facility] [employer] Other (5 sources) Penicillins; Translations: [PENICILLINS] Drug allergy (disorder) 9 [facility] Repository (4 sources) BEE VENOM PROTEIN (HONEY BEE); Translations: [BEE VENOM PROTEIN (HONEY BEE)] Propensity to adverse reactions to drug (disorder) 5 localized reaction [facility] Repository (1 source) Penicillins Drug allergy (disorder) 4 [facility] Repository Medications Current Medications Medication Drug [...] Orally Twice a day Active Thyroid (Pork) (Todd Thyroid) 90 mg tablet (1 source) Start: 12-07-19 take 1 tablet by mouth once daily Thyroid (Pork) (Todd Thyroid) 90 mg tablet Active 90 MG PO Daily December 06, 2022 12:00am thyroid (long term) 90 mg oral tablet (2 sources) Start: 12-07-19 take 1 tablet by mouth once daily Thyroid (Pork) (Todd Thyroid) 90 mg tablet Active 90 MG PO Daily December 06, 2022 12:00am Completed/Discontinued Medications Medication Drug Class(es) Dates Sig (Normalized) Sig (Original) acetaminophen 325 mg / HYDROcodone bitartrate 5 mg oral tablet (3 sources) Opioid Agonist Start: 01-18-2020 End: 07-13-2021 take 1 tablet by mouth every four to six hours Hydrocodone-Acetam inophen ([place]) 5-325 mg Tablet Discontinued 1 TAB PO [...] 2018 1:00am January 15, 2020 8:18am levonorgestrel 0.349482 mg/hr intrauterine system (3 sources) Progestin, Progestin-containin [...] Onset: 11-13-2017 Other aftercare (1 source) Other snf (current) drug therapy; Translations: [OTH [facility] CURRENT DRUG THERAPY] Onset: 11-14-2022 Episodic Other [...] Coding Summaryon 05-03-2024 Coding Summary HTMLBase 64 EpapkvbmRNv2wCy+PGhlYWQ +HJ8HHRZwN70exYWszW1lW0 NMTElOSywgQVBQTElOSyIgb aMsEY5ztEGiOORd IC8+FY5lVFUvKpiykOXig2W 6qGW5L18nkb6zHGcqvST0JH IePcHinoggo8azoUb4OBazB mluOyBt AIKniJ66IAH2xU68Iz16pJI dxNFso1puzCq8SvZxOGTsNA Y4wFybXYvmf4CuLTHgE29ok MJnm9S8 YVLyvQrylRRuDiPokOJ3nY9 mASjkvvxqw5gjfehaZii4ze 83uCXaw1L6kPR5C3LfotW1S GJvbGQg QatdiLVDoO2zquifg0vrgfy dJqDtIPWpVXs6NAn4ILYmxH zbJdUjUK60GZV4LGHzrgHpQ 2FsLWFs rKfvVwR6n6I9Yw8LC6LLPds wT0FSGLASFFrlhUJ+PC90cj 85L9GfIfqmXdv4XCKhRJE7m TA1tU1d LFCgBLpcl7Q8oWZ1Q2NowgX ynp5um5etXMVnULdbS92xsZ Ake8P3UBOgjBA9NGNorOkfG iBzaG93 Oyc+MCJnkCaoo9WvHbrxk5h xj5aifAr1FxtzDIAkznVrdU nkVZH4w9MbPm8qNORjrPT1y RR4oT4r ZjDhFiK4HTjaD727GuOfaHV gXthcL22aJ4XecSK+PHRyPj i4SDXcsYapPY7zB0PjNJYqb mctbGVm rHswYT9nTEHutwnuLPWhvB7 tSRKmD8d1ZzHkUdB8DYysL0 RgQISgprviMz31iF0mXiTsR mZ8FKcy J8YtdsQ5ZOUetKAeVVjvXSP 4P75zs0V0MGFxIUPvPNT1oP B8uD8rsKinpplspVTdeDdip mVydGlj PJvyEQxfK900TWTscVjmLxZ vZGluZyBEYXRlOiAgMTEvMT YvMjAyNDwvdGQ+KOQaQEI0x WxlPSAn lIAtZLuuJo5ihVvfrDpbIY5 pLUKwlwtuLQRgbN5cVABidA GnzSgxTX3mDMXwldqec727A iAxMHB0 JURckPAwY0DvoM0cVnAgRIQ fQQZoA8NxqMZjSRkmX252GY vfElI1WABpcxXoV2CrSSHqr WduOiB0 m5W3Pe8Oz6SqekalC5MyxAZ zByWgHuymWBk4Z4OxZfxjxS I+LP45IRJiXZ06PBk3IHQ0y WxlPSdi WZNhV3FivD7yFiZfVWOkJJJ kOyc+PHRhYmxlIHdpZHRoPS xkFYMzUaDauCgfVP8zSp9eU GVyLWNv bAzhgAGkVhErk3ogPJDzJOj uUV3dzHtcJ1LnkVO7EKLbb6 p9Ca45O63yS0OayQR+PGNvb WT6oMB1 rT0mGaSfWuD9DAglG822XkO erKRyAwanu0knx9ckqUi6Uw E4GPIgstGbkZubNUT7s1HrL w12X28i IHdpZHRoPSIxNSUiIHZhbGl dhn0vcH4sIm9+CJFgnIM0zG G7yP6sPfQnWvG2ZXjfN274J nRvcCIv Hvtke6nbu0ncsOt1KdAmNER oswIuwNqiQQK6g6ZhZd03E6 KylOtyf4HjKwy8ki93lQZud 3E0jCT0 B6VlOXIxfdheyTGwxGtmNF9 bAXZkukojYLEcoJ7wWDVvR7 z9YjGaKwH8CJrjO9FfcdQ4K GJvbGQg YFZezQVLqK5mxuluk4zsqpz kKqSgFQTaVOg3LUi7NHLtgB bcPbJeGZR2LyS2SHB9vINhl I2eoUpb gyvgmG6zBlf+CJF4aOSxpGY XUP5eMmapeCZ+TCXwDSU6dF xlRChtEPTviZ9rRGXcW5q6O iAwLjA1 WMbtJ6QeqbA4TBKgoUNtGHO rxQQWtD8bqvevc3wrgtouWc BgEUTlPTs0YVr7HAMeqSmhK iBsZWZ0 PkJ9BZA3eSJymU8ycGvkncj swR5cMiv+GbxnaNvlOSB7MU f6V9IeDvq2ZNWzvRrkBL8jl GFkZGlu Gj2fhEpkjWliNZ5tKSEnvmw cg698MdJlz5pwKLLyxERxXA ghHPC0W68jg8W5EKNfJANhU HY3rWB7 tV9viLlpmkgohDJoqJmbcsU wjCxdPEhsHIwcG122BFZamP vtPlOlXWg8T2HqLkx6FTCig FpcWG0g oRYeFYyxZw9qgMttjAzhND3 sSKWbwqlle530GyHvt6phTY RnzBNbFJbgANS3B46pw7A0Y CMwMDAw HEN5iKB3cE8feZmrrhprdDZ mdDsgdmVydGljYWwtYWxpZ2 39OLSijUsjVvJofXn5Y4VbN qn7ZIYr gSbcVP0irIJjZRxkWy8ueZo saOhnAL4sWTDotfvfc168Kt Jvy9cmYVLmuGOtBSsnSRK6E 63su2O1 TSQeFRUfGYD4dDZ7hO1fhRy nbjogbGVmdDsgdmVydGljYW rwZBwaL393FAPrjJojTzUfa GllbnQg VJbfSEl5I7QjVsrrvLN+PC9 2YPCqHB11uMOkkHZdq9hxhB y3WpXvGAHwBTS6nDjkLEsyj 3JkZXIt K90toBTyn1K3ZJMnqEbggOX bEtDllMD1xI1dFRhakmkno8 rishagRcmkg8ouhy74fY14Z 29sIHdp ZHRoPSIzMCUiIHZhbGlnbj0 dbO6yYt5+HRBqwJL5kAJ3uT 6iBSOfXhZ6QVuiB518GnExs CIvPjxj s5hnn1jwlEv5EsX5WANloqX aqZjkEFJ3j8AuLu72J52bZP dpZHRoPSIyMCUiIHZhbGlnb h7sjR0l Ii8+SYKynWW9tWL2mL8oCzC aXwD1NKjrN363NnXnpRPmTt ggW23kU1NgjII+RHShKtz9D CBzdHls JQ1jvPGmSXumZe3hODW2FsP gZmNjBEwlP6AsVLWfwfzqoz skoGM1IGMqMVBgsU68Jy7fc DogMTBw xXDYfJ1yywgat9zgipqbJoA eUTXhKXw4QAb3CDTwgJloPb EvFGJ4VeL1XPR0jVFxnH2hg Glnbjog tM5iX8XaECEostegHz51zM5 vQvKcOkO2ONvtHij+TUlMTE VSLCBCUklUVEFOWSBQQUlHR TwvdGQ+ KIZuWPS6xYgwCVpkYVSwbN8 bUNNyH1b0LqZmZwZ7EKnuJ7 MwJPZpwddmHy17hT6iRbUnE dT6ZXnt L9PongX2GMIxxHWwFGjmWJT 2E40on1J6XRPeARKwEAD6sI X5wX2yrHcewdwxuJQehZvvh mVydGlj OAjkUBznP264KBCyrLllBbB 7WpXcIsG6AWY1S0BiWtn9BC MjpTnhPZ6qfJVbHHzbIz3cc WdodDog YI4iERNgnhhoSAHdoV6xMOJ lhRVrcFnsAL6gLGJdvjtbo6 54CpUoIIK2BYHjlGOqK6Efs W6yHgEt UYPoSFIzA9XjuADkMAeuH02 3HIaxLwQ6UZZtytLwT6LrAE VilHbnTyJ2a5Y4Pr2jSCFEU WFyczwv dGQ+CDJhVFG7yQgrRIhfRZF vxT0lPSPzJ6w3YzMeWuI1LA okB7ArQBNbxtsyRn52uZ6iE iAwLjA1 IOcpX1LyflH7JORnzLNmGFb xIHQ1U76rd1A9KKRhDHTwGV M2tZQ2jH3vxWwyxwwhgKOwh DsgdmVy bUawAKpnHLstX689RXZtvBa nPkZFTUFMRTwvdGQ+PHRkIH P2uXroUFtsDBTyrJ9yVAIqB 9v7JtJo NdX9KNtgN3OqVNYogmdqZp3 6fI6dYfWnNdL5QHtdE8Jpmh G6SBMljPApHGcyJHN1O09az 3K2YCWh UEYfALG3fJG3iS4oiPhqxbl gbGVmdDsgdmVydGljYWwtYW bpY876KEWekZllXh1LQN83O V95F1Dp PjwvdGFibGU+PHRhYmxlIHd pZHRoPScxMDAlJyBzdHlsZT 8lNf5qFDBkDUNnvSmcxQAiI vWpv8gy AWXxLIwrPJ9cqEyxI1LuqFQ 1KCWnn2y4Lt98Q66qN0FhdB A+KQRfjGF7oQB6iP4gAsOfS mO3PWjx N850YrLbeZIlXtfrt2zrz1a wfCh1XlNfJUXbteVcaOrmYU R2v3KbHs24Z03hBVriOHCzK SIyMCUi IBMsvSlfcc4hvC4sDn1+PGN ixGJ7nGW0sS5uDbCpAyS3KA lcF481ZzAzjHVgEuiaV91yK 3JvdXA+ YJHvFqc8TJFwhVkkID4inEP aLDkjRc4dUME3NuOsPuOxJX ktZ2UzUBWxqnkrdswjpAT7R DAuMDUw aV12Uq9zdWqqHy3mVNFoNXH 6KILtwZNkT1AjfG4eFuSyVH MaOXJxU5HykUIcRPtlV205H GxlZnQ7 BMZoelOfL2LbQVJueEkwGyO 4u4W0Uw4BvEwnmGIrQQ7gHd XmYYb8Y4TjZrc9UOLwrKuyT J8plBEs CIvcJw4soNyuaNdcAK6hBIK aajemf096WeLem0njNUFhnZ TqGZqeXCW5N10qk7M5GJBsN DAwMDA7 yCU8zS0khQzzrqytxYLsrUx gngHvzFkpWGvyOFsvV680TS RhvRlwInGECds5F3HcFxp2R CBzdHls EL2osMUtWItdKs0kkNaujUa hEV1qMAXqnrxge847QjDkl4 lpLQPjhXEhQYswVNS8D76gj 4R6PKQd JBUqNEH7lLL8gD7wpDzztar gbGVmdDsgdmVydGljYWwtYW auM884XCAonQmqCz9FKul8B 0VkHwk8 HHLgxEulXQ6ukBOjTCbhEz4 vzExllJnmRS8jERFodhcxh0 17ZkVcp2yrJZTmzJElZKhuU YM2I07k k7N8KMOsMIYzWLX8cSQ1oQ4 hbGlnbjogbGVmdDsgdmVydG sxMStvKNlrI323HHOwbLncV lBheWVy OjwvdGQ+XF87gc28E6DpGyj eBgz4HVHkVIY3tCN2uR5kFH LsVRpst1J5qEC2X0PiacRld v5ld2vn YXB (more content not included)... Normal [facility] ED Clinical Summaryon 2023 ED Clinical Summary [facility] [address] [place] [address] Clinical Summary PERSON INFORMATION Name: TORREY GAYLE Age: 33 Years Sex: FEMALE : 1990 MRN: Acct#: Visit Reason: Medical screening exam; [facility] F/U - LEFT ARM INJURY Arrival: 04/25/2024 16:23:07 Discharge: 04/25/2024 17:25:00 LOS: 000 01:02 Check In: 04/25/2024 16:23:07 Checkout: 04/25/2024 17:25:00 Address: [address] [place] [address] PCP: Provider, None PROVIDER INFORMATION Provider Role [...] verbalizes understanding of instructions given Comment: Normal [facility] ED Patient Summaryon 024 ED Patient Summary [facility] [address] [place] [address] PATIENT DISCHARGE INSTRUCTIONS Patient Information Name: TORREY GAYLE Age: 33 Years Date of : 1990 Reason For Visit: Medical screening exam; [facility] F/U - LEFT ARM INJURY Arrival Time: 04/25/2024 16:23:07 Primary Care Physician: Provider, Nicolette Attending Physician: KRANTHI ACHARYA Comment: Patient Education With: Address: When: Return to this practice Comments: as scheduled in 3 months Medication Information: The exam and treatment you received today in the [facility] Emergency Department were for an urgent problem and are not intended as complete care. It is important for you to follow up with a doctor, nurse practitioner, or physician?s trust manager assistant for ongoing care. If your symptoms [...] so we can reach you if necessary. [facility] Emergency Department has provided you with a complete list of medications post discharge. Please inform your team primary care physician/provider of your visit and for further instruction [...] Left wrist sprain (S63.502A) Medical screening exam ([id number]) Other synovitis and tenosynovitis, left hand (M65.842) [...] legal documents Reason for Visit: Medical exam- [facility] -to establish with new POR, initial [...] Whooping Cou (more content not included)... Normal [facility] Note- Provideron 04-25-2024 Urgent Care [...] FOLLOW-UP Date of injury: 04/07/2019 Claim #: [id number] Employer: [place] Mechanism of Injury: Turning a [...] record is no longer practicing at the [facility]. 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 She was referred to Dr. Nicole with persisting symptoms. She had injections which were not particularly helpful and then proceeded to have 2 surgeries. She has now been seeing pain management for the past 2 years in [place]. She has tried PT, creams, injections, medications including OTC Motrin/Tylenol, Lyrica, Neurontin, muscle relaxers and Mobic/Celebrex all without good relief and so she takes no medications for this. She states her most recent testing was a bone scan done on 04/03 in [place] and it was reported as normal. 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 With this she reports elbow pain seems [...] wheeze. EXT (more content not included)... Normal [facility] [place] 024 Urgent Care Record [facility] ? 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 It is important for you to follow up with a doctor, nurse practitioner, or physician?s trust manager assistant for ongoing care. If your symptoms [...] so we can reach you if necessary. [facility] has provided you with a complete list of medications post discharge. Please inform your team primary care physician/provider of your visit and for further instruction [...] for Disease Control and Prevention February 2014 [facility] Alanine aminotransferase [En zymatic activity/volume] in Serum or PlasmaOrdered By: Oh Aparicio on 10-16-2023 ALT [Catalytic activity/Vol] 20 U/L [facility] Albumin [Mass/volume] in Ser um or Plasma by Bromocresol green (BCG) dye binding methoOrdered By: Oh Aparicio on 10-16-2023 Albumin BCG dye [Mass/Vol] 4.3 g/dL 3.5-5.7 [facility] Alkaline phosphatase [Enzyma tic activity/volume] in Serum or PlasmaOrdered By: Oh Aparicio on 10-16-2023 ALP [Catalytic activity/Vol] 54 U/L 34-104 [facility] Aspartate aminotransferase [ Enzymatic activity/volume] in Serum or PlasmaOrdered By: Oh Aparicio on 10-16-2023 AST [Catalytic activity/Vol] 17 U/L 13-39 [facility] Basic Metabolic Panelon 09-18 Anion gap [Moles/Vol] 12.0 mmol/L Normal 6.0-15.0 e [facility] Comment on above: Order Comment: helga r Performed By: #### B MP, LIPASE, SCAN CBC, HEPATIC #### [facility] [address] Calcium [Mass/Vol] 9.4 mg/dL Normal 8.6-10.3 [facility] Comment on above: Order Comment: helga r Performed By: #### B MP, LIPASE, SCAN CBC, HEPATIC #### [facility] [address] [place] [address] [place] Chloride [Moles/Vol] 103 mmol/L Normal 98-107 [facility] Comment on above: Order Comment: helga r Performed By: #### B MP, LIPASE, SCAN CBC, HEPATIC #### [facility] [address] [place] [id number] [place] CO2 [Moles/Vol] 30.1 mmol/L Normal 21.0-31.0 [facility] Comment on above: Order Comment: helga r Performed By: #### B MP, LIPASE, SCAN CBC, HEPATIC #### [facility] [address] [place] [id number] [place] Creatinine [Mass/Vol] 0.67 mg/dL Normal 0.60-1.20 [facility] Comment on above: Order Comment: helga r Performed By: #### B MP, LIPASE, SCAN CBC, HEPATIC #### [facility] [address] [place] [phone] [place] Creatinine Clr Calc Pharmacy 110.48 Normal [facility] Comment on above: Order Comment: helga r Performed By: #### B MP, LIPASE, SCAN CBC, HEPATIC #### [facility] [address] GFR/1.73 sq M.predicted MDRD (S/P/Bld) [Vol rate/Area] mL/min/{1.73_m2} Normal [facility] Comment on above: Order Comment: helga r Performed By: #### B MP, LIPASE, SCAN CBC, HEPATIC #### [facility] [address] Glucose [Mass/Vol] 75 mg/dL Normal 70-100 [facility] Comment on above: Order Comment: helga r Result Comment: [place] Glucose Reference Range is dependent on time and content of last meal. Glucose of more than 200 mg/dL in a nonstressed, ambulatory subject supports the diagnosis of Diabetes Mellitus. ADA recommended reference range Performed By: #### B MP, LIPASE, SCAN CBC, HEPATIC #### [facility] [address] Potassium [Moles/Vol] 4.1 mmol/L Normal 3.5-5.1 [facility] Comment on above: Order Comment: helga r Performed By: #### B MP, LIPASE, SCAN CBC, HEPATIC #### [facility] [address] [place] [id number] [facility] Sodium [Moles/Vol] 141 mmol/L Normal 136-145 [facility] Comment on above: Order Comment: helga r Performed By: #### B MP, LIPASE, SCAN CBC, HEPATIC #### [facility] [address] [place] [id number] [facility] Urea nitrogen [Mass/Vol] 8 mg/dL Normal 7-25 [facility] Comment on above: Order Comment: helga r Performed By: #### B MP, LIPASE, SCAN CBC, HEPATIC #### [facility] [address] [place] [phone] [facility] Basophils Auto (Bld) [#/Vol] Ordered By: Oh Aparicio on 10-16-2023 Basophils (Bld) [#/Vol] 0.0 10*3/uL 0.0-0.2 [facility] Basophils/100 WBC Auto (Bld) Ordered By: Oh Aparicio on 10-16-2023 Basophils/100 WBC (Bld) 0.3 % . [facility] Bilirubin Test strip Ql (U)O rdered By: Oh Aparicio on 10-16-2023 Bilirubin Ql (U) Negative Negative [facility] Bilirubin.direct [Mass/volum e] in Serum or PlasmaOrdered By: Oh Aparicio on 10-16-2023 Bilirubin.direct [Mass/Vol] 0.10 mg/dL 0.03-0.18 [facility] Bilirubin.total [Mass/volume ] in Serum or PlasmaOrdered By: Oh Aparicio on 10-16-2023 Bilirubin [Mass/Vol] 0.4 mg/dL 0.3-1.[address] [facility] [address] abdomen pelvis w conon CT abdomen pelvis w con [place] [address] CT Scan Report Signed Patient: Torrey Antony MR#: [id number] : 1990 Acct:[id number] Age/Sex: 32 / F ADM Date: 10/16/23 Loc: ER Room: Type: [facility] ER Attending Dr: Copies to: [...] Anastasia Nunez M.D.10/16/2023 2:09 PM Dictation Location: [place] [address] Transcribed By: [facility] 10/16/23 1409 Dictated By: Anastasia Nunez MD 10/16/23 1355 Signed By: 10/16/23 1409 Normal [facility] Calcium [Mass/volume] in Ser um or PlasmaOrdered By: Oh Aparicio on 10-16-2023 Calcium [Mass/Vol] 9.4 mg/dL 8.6-10.3 [facility] Carbon dioxide, total [Moles /volume] in Serum or PlasmaOrdered By: Oh Aparicio on 10-16-2023 CO2 [Moles/Vol] 30.1 mmol/L 21.0-31.0 [facility] Chloride [Moles/volume] in S kusum or PlasmaOrdered By: Oh Aparicio on 10-16-2023 Chloride [Moles/Vol] 103 mmol/L 98-107 [facility] Color Auto (U)Ordered By: Lele Aparicio on 10-16-2023 Color (U) Yellow Yellow [facility] Creatinine [Mass/volume] in Serum or PlasmaOrdered By: Oh Aparicio on 10-16-2023 Creatinine [Mass/Vol] 0.67 mg/dL 0.60-1.20 [facility] Eosinophils Auto (Bld) [#/Vo l]Ordered By: Oh Aparicio on 10-16-2023 Eosinophils (Bld) [#/Vol] 0.2 10*3/uL 0.0-0.45 [facility] Eosinophils/100 WBC Auto (Bl d)Ordered By: Oh Aparicio on 10-16-2023 Eosinophils/100 WBC (Bld) 2.5 % . [facility] Erythrocyte distribution wid th Auto (RBC) [Ratio]Ordered By: Oh Aparicio on 10-16-2023 Erythrocyte distribution width (RBC) [Ratio] 13.7 % 11.9-15.3 [facility] Globulin Calc (S) [Mass/Vol] Ordered By: Oh Aparicio on 10-16-2023 Globulin (S) [Mass/Vol] 2.3 g/dL [facility] Glucose [Mass/volume] in Ser um or PlasmaOrdered By: Oh Aparicio on 10-16-2023 Glucose [Mass/Vol] 75 mg/dL 70-100 [facility] Comment on above: ADA recommended refe rence rangeRandom Glucose Reference Range is dependent on time and content of last meal. Glucose of more than 200 mg/dL in a nonstressed, ambulatory subject supports the diagnosis of Diabetes Mellitus. HCG ( test) IA.rapi d Ql (U)Ordered By: Oh Aparicio on 10-16-2023 HCG ( test) Ql (U) Negative [facility] HCG,Urineon 10-16-2023 Beta HCG ( test) Ql (U) Negative Normal [facility] Comment on above: Order Comment: Name Collection Type:: Voided Result Comment: PERF ORMED BY: [place] [address] PATHOLOGIST [employer]MA[employer] CAMPAIGN MANAGER TAZ DALY M.D. Performed By: #### U HCG, UA #### [address] Hematocrit Auto (Bld) [Volum e fraction]Ordered By: Oh Aparicio on 10-16-2023 Hematocrit (Bld) [Volume fraction] 40.4 % 34.0-46.4 [facility] Hemoglobin [Mass/volume] in BloodOrdered By: Oh Aparicio on 10-16-2023 Hemoglobin (Bld) [Mass/Vol] 13.7 g/dL 11.8-15.4 [facility] Hepatic Panelon 10-16-2023 Albumin [Mass/Vol] 4.3 g/dL Normal 3.5-5.7 [facility] Comment on above: Order Comment: helga r Performed By: #### B MP, LIPASE, SCAN CBC, HEPATIC #### [facility] [address] Albumin/Globulin [Mass ratio] 1.9 {ratio} Normal [facility] Comment on above: Order Comment: helga r Performed By: #### B MP, LIPASE, SCAN CBC, HEPATIC #### [facility] [place] [address] ALP [Catalytic activity/Vol] 54 U/L Normal 34-104 [facility] Comment on above: Order Comment: helga r Performed By: #### B MP, LIPASE, SCAN CBC, HEPATIC #### [facility] [address] [place] [address] [place] ALT [Catalytic activity/Vol] 20 U/L Normal 7-52 [facility] Comment on above: Order Comment: helga r Performed By: #### B MP, LIPASE, SCAN CBC, HEPATIC #### [facility] [address] [place], [place] [id number] [place] AST [Catalytic activity/Vol] 17 U/L Normal 13-39 [facility] Comment on above: Order Comment: helga r Performed By: #### B MP, LIPASE, SCAN CBC, HEPATIC #### [facility] [address] [place] [id number] [place] Bilirubin [Mass/Vol] 0.4 mg/dL Normal 0.3-1.0 [facility] Comment on above: Order Comment: helga r Performed By: #### B MP, LIPASE, SCAN CBC, HEPATIC #### [facility] [address] [place] [id number] [place] Bilirubin,Indirect 0.3 mg/dL Normal [facility] Comment on above: Order Comment: helga r Performed By: #### B MP, LIPASE, SCAN CBC, HEPATIC #### [address] Bilirubin.indirect [Mass/Vol] 0.10 mg/dL Normal 0.03-0.18 [facility] Comment on above: Order Comment: helga r Performed By: #### B MP, LIPASE, SCAN CBC, HEPATIC #### [address] Globulin (S) [Mass/Vol] 2.3 g/dL Normal [facility] Comment on above: Order Comment: helga r Performed By: #### B MP, LIPASE, SCAN CBC, HEPATIC #### [address] Protein [Mass/Vol] 6.6 g/dL Normal 6.4-8.9 [facility] Comment on above: Order Comment: helga r Performed By: #### B MP, LIPASE, SCAN CBC, HEPATIC #### [address] Ketones Auto test strip (U) [Mass/Vol]Ordered By: Oh Aparicio on 10-16-2023 Ketones (U) [Mass/Vol] Negative Negative [facility] Leukocytes [#/volume] correc milla for nucleated erythrocytes in Blood by Automated counOrdered By: Oh Aparicio on 10-16-2023 WBC corrected for nucl RBC Auto (Bld) [#/Vol] 6.3 10*3/uL 3.8-11.6 [facility] Lipaseon 10-16-2023 Lipase [Catalytic activity/Vol] 7.0 U/L Low 11.0-82.0 [facility] Comment on above: Order Comment: helga r Result Comment: PERF ORMED BY: [place] [address] PATHOLOGIST [employer] TAZ DALY M.D. Performed By: #### B MP, LIPASE, SCAN CBC, HEPATIC #### [address] Lipase [Enzymatic activity/v olume] in Serum or PlasmaOrdered By: Oh Aparicio on 10-16-2023 Lipase [Catalytic activity/Vol] 7.0 U/L 11.0-82.0 [facility] Lymphocytes Auto (Bld) [#/Vo l]Ordered By: Oh Aparicio on 10-16-2023 Lymphocytes (Bld) [#/Vol] 2.2 10*3/uL 1.00-4.8 [facility] Lymphocytes/100 WBC Auto (Bl d)Ordered By: Oh Aparicio on 10-16-2023 Lymphocytes/100 WBC (Bld) 34.2 % . [facility] MCH Auto (RBC) [Entitic mass ]Ordered By: Oh Aparicio on 10-16-2023 MCH (RBC) [Entitic mass] 31.0 pg 24.7-34.3 [facility] MCHC Auto (RBC) [Mass/Vol]Or dered By: Oh Aparicio on 10-16-2023 MCHC (RBC) [Mass/Vol] 33.9 g/dL 32.0-35.0 [facility] MCV Auto (RBC) [Entitic vol] Ordered By: Oh Aparicio on 10-16-2023 MCV (RBC) [Entitic vol] 91.5 fL 80-100 [facility] Monocyte distribution width [Entitic volume] in Blood by AutomatedOrdered By: Oh Aparicio on 10-16-2023 Monocyte distribution width Auto (Bld) [Entitic vol] 17.06 % 0.00-20.00 [facility] Monocytes Auto (Bld) [#/Vol] Ordered By: Oh Aparicio on 10-16-2023 Monocytes (Bld) [#/Vol] 0.4 10*3/uL 0.0-0.8 [facility] Monocytes/100 WBC Auto (Bld) Ordered By: Oh Aparicio on 10-16-2023 Monocytes/100 WBC (Bld) 5.9 % . [facility] Neutrophils Auto (Bld) [#/Vo l]Ordered By: Oh Aparicio on 10-16-2023 Neutrophils (Bld) [#/Vol] 3.6 10*3/uL 1.8-7.7 [facility] Neutrophils/100 WBC Auto (Bl d)Ordered By: Oh Aparicio on 10-16-2023 Neutrophils/100 WBC (Bld) 57.1 % . [facility] Nitrite Test strip Ql (U)Ord ered By: Oh Aparicio on 10-16-2023 Nitrite Ql (U) Negative Negative [facility] No Panel InformationOrdered By: Oh Aparicio on 10-16-2023 Estimated GFR (CKD-EPI) > 60.0 mL/Min [facility] Creatinine Clearance (Chem 110.48 [facility] Nucleated erythrocytes [Pres ence] in Blood by Automated countOrdered By: Oh Aparicio on 10-16-2023 Nucleated RBC Auto Ql (Bld) 0.2 /100{WBC} 0-0.5 [facility] Platelet adequacy [Presence] in Blood by Light microscopyOrdered By: Oh Aparicio on 10-16-2023 Platelets LM Ql (Bld) Normal Normal [facility] Platelet mean volume Auto (B ld) [Entitic vol]Ordered By: Oh Aparicio on 10-16-2023 Platelet mean volume (Bld) [Entitic vol] 11.6 fL 6.3-10.7 [facility] Platelet morphology finding [Identifier] in BloodOrdered By: Oh Aparicio on 10-16-2023 Platelet morphology finding Nom (Bld) N/A [facility] Platelets Auto (Bld) [#/Vol] Ordered By: Oh Aparicio on 10-16-2023 Platelets (Bld) [#/Vol] 174 10*3/uL 150-450 [facility] Platelets Large [Presence] i n Blood by Light microscopyOrdered By: Oh Aparicio on 10-16-2023 Platelets Large LM Ql (Bld) Slight [facility] Potassium [Moles/volume] in Serum or PlasmaOrdered By: Oh Aparicio on 10-16-2023 Potassium [Moles/Vol] 4.1 mmol/L 3.5-5.1 [facility] Protein Auto test strip (U) [Mass/Vol]Ordered By: Oh Apariico on 10-16-2023 Protein (U) [Mass/Vol] Negative Negative [facility] Protein [Mass/volume] in Ser um or PlasmaOrdered By: Oh Aparicio on 10-16-2023 Protein [Mass/Vol] 6.6 g/dL 6.4-8.9 [facility] RBC Auto (Bld) [#/Vol]Ordere d By: Oh Aparicio on 10-16-2023 RBC (Bld) [#/Vol] 4.42 10*6/uL 3.60-5.00 [facility] RBC morphologyOrdered By: Lele Aparicio on 10-16-2023 RBC morphology finding Nom (Bld) Normal Normal [facility] Scan and CBCon 10-16-2023 Basophils (Bld) [#/Vol] 0.0 10*3/uL Normal 0.0-0.2 [facility] Comment on above: Order Comment: helga r Performed By: #### B MP, LIPASE, SCAN CBC, HEPATIC #### [facility] [address] Basophils/100 WBC (Bld) 0.3 % Normal . [facility] Comment on above: Order Comment: helga r Performed By: #### B MP, LIPASE, SCAN CBC, HEPATIC #### [facility] [address] Eosinophils (Bld) [#/Vol] 0.2 10*3/uL Normal 0.0-0.45 [facility] Comment on above: Order Comment: helga r Performed By: #### B MP, LIPASE, SCAN CBC, HEPATIC #### [facility] [address] Eosinophils/100 WBC (Bld) 2.5 % Normal . [facility] Comment on above: Order Comment: helga r Performed By: #### B MP, LIPASE, SCAN CBC, HEPATIC #### [facility] [address] Erythrocyte distribution width (RBC) [Ratio] 13.7 % Normal 11.9-15.3 [facility] Comment on above: Order Comment: helga r Performed By: #### B MP, LIPASE, SCAN CBC, HEPATIC #### [facility] [address] Hematocrit (Bld) [Volume fraction] 40.4 % Normal 34.0-46.4 [facility] Comment on above: Order Comment: helga r Performed By: #### B MP, LIPASE, SCAN CBC, HEPATIC #### [address] Hemoglobin (Bld) [Mass/Vol] 13.7 g/dL Normal 11.8-15.4 [facility] Comment on above: Order Comment: helga r Performed By: #### B MP, LIPASE, SCAN CBC, HEPATIC #### [address] Large Platelets Slight Normal [facility] Comment on above: Order Comment: hegla r Result Comment: PERF ORMED BY: [place] [address] PATHOLOGIST [employer] TAZ DALY M.D. Performed By: #### B MP, LIPASE, SCAN CBC, HEPATIC #### [address] Lymphocytes (Bld) [#/Vol] 2.2 10*3/uL Normal 1.00-4.8 [facility] Comment on above: Order Comment: helga r Performed By: #### B MP, LIPASE, SCAN CBC, HEPATIC #### [address] Lymphocytes/100 WBC (Bld) 34.2 % Normal . [facility] Comment on above: Order Comment: helga r Performed By: #### B MP, LIPASE, SCAN CBC, HEPATIC #### [address] MCH (RBC) [Entitic mass] 31.0 pg Normal 24.7-34.3 [facility] Comment on above: Order Comment: helga r Performed By: #### B MP, LIPASE, SCAN CBC, HEPATIC #### [address] MCV (RBC) [Entitic vol] 91.5 fL Normal 80-100 [facility] Comment on above: Order Comment: helga r Performed By: #### B MP, LIPASE, SCAN CBC, HEPATIC #### [address] Mean Corpuscular HGB Conc 33.9 g/dL Normal 32.0-35.0 [facility] Comment on above: Order Comment: helga r Performed By: #### B MP, LIPASE, SCAN CBC, HEPATIC #### [address] Monocytes (Bld) [#/Vol] 0.4 10*3/uL Normal 0.0-0.8 [facility] Comment on above: Order Comment: helga r Performed By: #### B MP, LIPASE, SCAN CBC, HEPATIC #### [address] Monocytes/100 WBC (Bld) 17.06 % Normal 0.00-20.00 [facility] Comment on above: Order Comment: helga r Performed By: #### B MP, LIPASE, SCAN CBC, HEPATIC #### [address] Monocytes/100 WBC (Bld) 5.9 % Normal . [facility] Comment on above: Order Comment: helga r Performed By: #### B MP, LIPASE, SCAN CBC, HEPATIC #### [address] Neutrophils (Bld) [#/Vol] 3.6 10*3/uL Normal 1.8-7.7 [facility] Comment on above: Order Comment: helga r Performed By: #### B MP, LIPASE, SCAN CBC, HEPATIC #### [address] Neutrophils/100 WBC (Bld) 57.1 % Normal . [facility] Comment on above: Order Comment: helga r Performed By: #### B MP, LIPASE, SCAN CBC, HEPATIC #### [address] NRBC% 0.2 /100{WBC} Normal 0-0.5 [facility] Comment on above: Order Comment: helga r Performed By: #### B MP, LIPASE, SCAN CBC, HEPATIC #### [facility] [address] Platelet Estimate Normal Normal Normal [facility] Comment on above: Order Comment: helga r Performed By: #### B MP, LIPASE, SCAN CBC, HEPATIC #### [facility] [address] Platelet mean volume (Bld) [Entitic vol] 11.6 fL High 6.3-10.7 [facility] Comment on above: Order Comment: helga r Performed By: #### B MP, LIPASE, SCAN CBC, HEPATIC #### [facility] [address] Platelets (Bld) [#/Vol] 174 10*3/uL Normal 150-450 [facility] Comment on above: Order Comment: helga r Performed By: #### B MP, LIPASE, SCAN CBC, HEPATIC #### [facility] [address] RBC (Bld) [#/Vol] 4.42 10*6/uL Normal 3.60-5.[address] [facility] Comment on above: Order Comment: helga r Performed By: #### B MP, LIPASE, SCAN CBC, HEPATIC #### [facility] [address] RBC morphology finding Nom (Bld) Normal Normal Normal [facility] Comment on above: Order Comment: helga r Performed By: #### B MP, LIPASE, SCAN CBC, HEPATIC #### [facility] [address] WBC (Bld) [#/Vol] 6.3 10*3/uL Normal 3.8-11.6 [facility] Comment on above: Order Comment: helga r Performed By: #### B MP, LIPASE, SCAN CBC, HEPATIC #### [facility] [address] Serum or plasma albumin/glob ulin mass ratioOrdered By: Oh Aparicio on 10-16-2023 Albumin/Globulin [Mass ratio] 1.9 {ratio} [facility] Serum or plasma anion gap de terminationOrdered By: Oh Aparicio on 10-16-2023 Anion gap [Moles/Vol] 12.0 mmol/L 6.0-15.0 [facility] Serum or plasma non-glucuron idated bilirubin measurement (mass/volume)Ordered By: Oh Aparicio on 10-16-2023 Bilirubin.indirect [Mass/Vol] 0.3 mg/dL [facility] Sodium [Moles/volume] in Ser um or PlasmaOrdered By: Oh Aparicio on 10-16-2023 Sodium [Moles/Vol] 141 mmol/L 136-145 [facility] Specific gravity Auto test s trip (U) [Rel density]Ordered By: Oh Aparicio on 10-16-2023 Specific gravity (U) [Rel density] 1.006 1.001-1.030 [facility] US gall bladderon 10-16-2023 US gall bladder [place] [address] Ultrasound Report Signed Patient: Torrey Antony MR#: [id number] : 1990 Acct:[id number] Age/Sex: 32 / F ADM Date: 10/16/23 Loc: ER Room: Type: [facility] ER Attending Dr: Ordering Provider: [...] Anastasia Nunez M.D.10/16/2023 1:27 PM Dictation Location: [place] [address] Tech: Katharina Melvin Transcribed By: DIANA 10/16/23 1327 Dictated By: Anastasia Nunez MD 10/16/23 1325 Signed By: 10/16/23 1327 Normal [facility] Urea nitrogen [Mass/volume] in Serum or PlasmaOrdered By: Oh Aparicio on 10-16-2023 Urea nitrogen [Mass/Vol] 8 mg/dL 01-09 [facility] Urinalysison 10-16-2023 Appearance (U) Clear Normal Clear [facility] Comment on above: Order Comment: Name Collection Type:: Voided Performed By: #### U HCG, UA #### [place] [address] [place] Bilirubin,Urine Negative Normal Negative [facility] Comment on above: Order Comment: Name Collection Type:: Voided Performed By: #### U HCG, UA #### [address] Color (U) Yellow Normal Yellow [facility] Comment on above: Order Comment: Name Collection Type:: Voided Performed By: #### U HCG, UA #### [place] [address] [place] Glucose Ql (U) Normal Normal Normal [facility] Comment on above: Order Comment: Name Collection Type:: Voided Performed By: #### U HCG, UA #### [place] [address] [place] Ketones Ql (U) Negative Normal Negative [facility] Comment on above: Order Comment: Name Collection Type:: Voided Performed By: #### U HCG, UA #### [place] [id number] [place] Leukocyte esterase Test strip Ql (U) Negative Normal Negative [facility] Comment on above: Order Comment: Name Collection Type:: Voided Performed By: #### U HCG, UA #### [place] [address] [place] Nitrite,Urine Negative Normal Negative [facility] Comment on above: Order Comment: Name Collection Type:: Voided Performed By: #### U HCG, UA #### [place] [id number] [place] Occult Blood,Urine Negative Normal Negative [facility] Comment on above: Order Comment: Name Collection Type:: Voided Performed By: #### U HCG, UA #### [address] pH (U) 7.0 [pH] Normal 5.0-9.0 [facility] Comment on above: Order Comment: Name Collection Type:: Voided Performed By: #### U HCG, UA #### [address] Protein,Urine Negative Normal Negative [facility] Comment on above: Order Comment: Name Collection Type:: Voided Performed By: #### U HCG, UA #### [address] Specificy [place],Urine 1.006 Normal 1.001-1.030 [facility] Comment on above: Order Comment: Name Collection Type:: Voided Performed By: #### U HCG, UA #### [address] Urobilinogen,Urine Normal Normal Normal [facility] Comment on above: Order Comment: Name Collection Type:: Voided Performed By: #### U HCG, UA #### [address] Urine clarity by refractomet ry automatedOrdered By: Oh Aparicio on 10-16-2023 Clarity Refractometry automated (U) Clear Clear [facility] Urine glucose measurement by automated test strip (mass/volume)Ordered By: Oh Aparicio on 10-16-2023 Glucose Auto test strip (U) [Mass/Vol] Normal mg/dL Normal [facility] Urine hemoglobin detection b y automated test stripOrdered By: Oh Aparicio on 10-16-2023 Hemoglobin Auto test strip Ql (U) Negative Negative [facility] Urine leukocyte esterase det ection by automated test stripOrdered By: Oh Aapricio on 10-16-2023 Leukocyte esterase Auto test strip Ql (U) Negative Negative [facility] Urobilinogen Auto test strip (U) [Mass/Vol]Ordered By: hO Aparicio on 10-16-2023 Urobilinogen (U) [Mass/Vol] Normal mg/dL Normal [facility] WBC Auto (Bld) [#/Vol]Ordere d By: Oh Aparicio on 10-16-2023 WBC (Bld) [#/Vol] 6.3 10*3/uL 3.8-11.6 [facility] pH Auto test strip (U)Ordere d By: Oh Aparicio on 10-16-2023 pH (U) 7.0 [pH] 5.0-9.0 [facility] Office Visiton 11-30-2022 Follow-up visit [id number] Torrey Antony 1990 F Date Provider Department Center 11/30/2022 [facility] Family History Problem Relation Age of Onset No Known Problems Mother Hypertension Father Hyperlipidemia Father Family Status - Relation Status Age at Mother Alive Father Alive Level of Service:31558 [place] OFFICE/OUTPATIENT ESTABLISHED LOW [facility] 20-29 MIN Reason for Visit and Comments: Pain [136] Normal [facility] XR CHEST 2 Von 11-09-2022 XR CHEST [...] by: HAN ARNOLD Date: 2022-11-09 17:20 Normal [facility] XR CHEST 1 Von 11-02-2022 XR [...] by: MAURO NUNEZ Date: 2022-11-02 20:46 Normal [facility] THYROID ANTIBODIESon 023 Thyroglobulin Antibody <1.0 Normal 0.0-0.9 Th [facility] Comment on above: Result Comment: Thyr oglobulin Antibody measured by [employer] Methodology Performed By: #### T HYRABS #### [facility] [address] [place] [address] Dr. Rigo Sands Thyroid Peroxidase (TPO) Ab <9 Normal 0-34 [facility] Comment on above: Performed By: #### T HYRABS #### [facility] [address] [place] [address] Dr. Rigo Sands US THYROIDon 07-10-2022 US [...] by: MAURO POSADAS Date: 2022-07-10 06:33 Normal [facility] FREE T3on 07-07-2022 FREE T3 2.99 pg/mlL Normal 2.18-3.98 [facility] Comment on above: Performed By: #### T SH, FT3 #### [facility] [address] [place] [address] Dr. Rigo Sands FREE T4on 07-07-2022 Free T4 [Mass/Vol] 0.64 ng/dL Critically low 0.76-1.46 Th [facility] Comment on above: Performed By: #### F T4 #### [facility] [address] [place] [address] Dr. Rigo Sands TSHon 07-07-2022 TSH 0.764 uIU/mL Normal 0.358-3.740 [facility] Comment on above: Performed By: #### T SH, FT3 #### [facility] [address] [place] [address] Dr. Rigo Sands Covid-19 PCR (CVDTB)on SARS-CoV-2 (COVID-19) RNA OK+probe Ql (Unsp spec) Not detected Normal NOT DETECTED [facility] Comment on above: Result Comment: When [...] for this test is supported by the [place] of Health and Human Service's declaration that [...] used). Performed By: #### C VDTBH #### [facility] [address] [place] [address] Dr. Rigo Sands CBC AUTO DIFFon 04-04-2022 BASO # 0.0 103/ul Normal 0.0-0.1 [facility] Comment on above: Performed By: #### C BC ####[facility] [address] [place], [place] [address]DrRobert Sands Basophils/100 WBC (Bld) 0.3 % Normal 0.2-2.0 [facility] Comment on above: Performed By: #### C BC ####[facility] [address] [place] [address]DrRobert Sands EO # 0.1 103/ul Normal 0.0-0.7 [facility] Comment on above: Performed By: #### C BC ####[facility] [address] [place] [address]DrRobert Sands Eosinophils/100 WBC (Bld) 0.8 % Critically low 0.9-7.0 [facility] Comment on above: Performed By: #### C BC ####[facility] [address] [place], [place] [address]Dr. Rigo Sands Erythrocyte distribution width (RBC) [Ratio] 13.2 % Normal 11.0-15.0 [facility] Comment on above: Performed By: #### C BC ####[facility] [address] [place], [place] [address]Dr. Rigo Sands Hematocrit (Bld) [Volume fraction] 42.0 % Normal 36.0-48.0 [facility] Comment on above: Performed By: #### C BC ####[facility] [address] [place], [place] [address]Dr. Rigo Sands Hemoglobin (Bld) [Mass/Vol] 13.8 g/dL Normal 12.0-16.0 [facility] Comment on above: Performed By: #### C BC ####[facility] [address] [place], [place] [address]Dr. Rigo Sands IG # 0.04 10e3/ul Critically high 0.00-0.03 [facility] Comment on above: Performed By: #### C BC ####[facility] [address] [place], [place] [address]Dr. Rigo Sands IG % 0.5 % Normal 0.0-0.5 [facility] Comment on above: Performed By: #### C BC ####[facility] [address] [place], [place] [address]Dr. Rigo Sands LYMPH # 1.9 103/ul Normal 1.2-3.8 [facility] Comment on above: Performed By: #### C BC ####[facility] [address] [place], [place] [address]Dr. Rigo Sands Lymphocytes/100 WBC (Bld) 25.5 % Normal 20.5-60.0 [facility] Comment on above: Performed By: #### C BC ####[facility] [address] [place], [place] [address]Dr. Rigo Sands MANUAL DIFF REQ NO Normal [facility] Comment on above: Performed By: #### C BC ####[facility] [address] [place] [address]DrRobert Sands MCH (RBC) [Entitic mass] 30.4 pg Normal 26.7-34.0 [facility] Comment on above: Performed By: #### C BC ####[facility] [address] [place] [address]DrRobert Sands MCHC (RBC) [Mass/Vol] 32.9 g/dL Normal 29.9-35.2 [facility] Comment on above: Performed By: #### C BC ####[facility] [address] [place], [place] [address]DrRobert Sands MCV (RBC) [Entitic vol] 92.5 fL Normal 81.0-99.0 [facility] Comment on above: Performed By: #### C BC ####[facility] [address] [place], [place] [address]DrRobert Sands MONO # 0.5 103/ul Normal 0.3-0.8 [facility] Comment on above: Performed By: #### C BC ####[facility] [address] [place], [place] [address]DrRobert Sands Monocytes/100 WBC (Bld) 6.0 % Normal 1.7-12.0 [facility] Comment on above: Performed By: #### C BC ####[facility] [address] [place], [place] [address]DrRobert Sands NEUT # 5.0 103/ul Normal 1.4-6.5 [facility] Comment on above: Performed By: #### C BC ####[facility] [address] [place], [place] [address]DrRobert Sands Neutrophils/100 WBC (Bld) 66.9 % Normal 43.0-75.0 [facility] Comment on above: Performed By: #### C BC ####[facility] [address] [place], [place] [address]DrRobert Sands Platelet mean volume (Bld) [Entitic vol] 12.7 fL Normal 9.5-13.5 [facility] Comment on above: Performed By: #### C BC ####[facility] [address] [place] [address]Dr. Rigo Sands PLT 196 103/ul Normal 150-450 [facility] Comment on above: Performed By: #### C BC ####[facility] [address] [place], [place] [address]Dr. Rigo Sands RBC 4.54 106/ul Normal 4.20-5.40 [facility] Comment on above: Performed By: #### C BC ####[facility] [address] [place], [place] [address]Dr. Rigo Sands WBC 7.5 103/ul Normal 4.0-11.0 [facility] Comment on above: Performed By: #### C BC ####[facility] [address] [place], [place] [address]Dr. Rigo Sands IRONon 04-04-2022 Iron [Mass/Vol] 65.0 ug/dL Normal 50.0-170.0 [facility] Comment on above: Performed By: #### V ITAD, IRON, VITB12 ####[facility] [address] [place], [place] [address]Dr. Rigo Sands VITAMIN B12on 04-04-2022 Cobalamin (Vitamin B12) [Mass/Vol] 369.0 pg/mL Normal 193.0-986.0 [facility] Comment on above: Performed By: #### V ITAD, IRON, VITB12 ####[facility] [address] [place], [place] [address]Dr. Rigo Sands VITAMIN D 25 OHon 04-04-2022 VIT D 25-OH 59.2 ng/mL Normal [facility] Comment on above: Performed By: #### V ITAD, IRON, VITB12 ####[facility] [address] [place], [place] [address]Dr. Rigo Sands VIT D RANGES SEE BELOW Normal [facility] Comment on above: Result Comment: <20 ng/mL Vit D deficient 20 - <30 ng/mL Vit D insufficient 30 - 100 ng/mL Vit D sufficient >100 ng/mL Potential Toxicity Performed By: #### V ITAD, IRON, VITB12 ####[facility] [address] [place] [address]Dr. Rigo Sands CBC AUTO DIFFon 02-15-2022 BASO # 0.0 103/ul Normal 0.0-0.1 [facility] Comment on above: Performed By: #### C BC #### [facility] [address] [place] [address] [address] Rigo Sands Basophils/100 WBC (Bld) 0.2 % Normal 0.2-2.0 [facility] Comment on above: Performed By: #### C BC #### [facility] [address] [place] [address] Dr. Rigo Sands EO # 0.0 103/ul Normal 0.0-0.7 [facility] Comment on above: Performed By: #### C BC #### [facility] [address] [place] [address] Dr. Rigo Sands Eosinophils/100 WBC (Bld) 0.1 % Critically low 0.9-7.0 [facility] Comment on above: Performed By: #### C BC #### [facility] [address] [place] [address] Dr. Rigo Sands Erythrocyte distribution width (RBC) [Ratio] 13.5 % Normal 11.0-15.0 [facility] Comment on above: Performed By: #### C BC #### [facility] [address] [place] [address] Dr. Rigo Sands Hematocrit (Bld) [Volume fraction] 40.0 % Normal 36.0-48.0 [facility] Comment on above: Performed By: #### C BC #### [facility] Laboratory [address] [place] [address] Dr. Rigo Sands Hemoglobin (Bld) [Mass/Vol] 13.4 g/dL Normal 12.0-16.0 [facility] Comment on above: Performed By: #### C BC #### [facility] [address] [place] [address] Dr. Rigo Sands IG # 0.04 10e3/ul Critically high 0.00-0.03 [facility] Comment on above: Performed By: #### C BC #### [facility] [address] [place] [address] Dr. Rigo Sands IG % 0.4 % Normal 0.0-0.5 [facility] Comment on above: Performed By: #### C BC #### [facility] [address] [place] [address] Dr. Rigo Sands LYMPH # 1.6 103/ul Normal 1.2-3.8 [facility] Comment on above: Performed By: #### C BC #### [facility] [address] [place] [address] Dr. Rigo Sands Lymphocytes/100 WBC (Bld) 17.2 % Critically low 20.5-60.0 [facility] Comment on above: Performed By: #### C BC #### [facility] [address] [place] [address] Dr. Rigo Sands MANUAL DIFF REQ NO Normal [facility] Comment on above: Performed By: #### C BC #### [facility] [address] [place] [address] Dr. Rigo Sands MCH (RBC) [Entitic mass] 30.7 pg Normal 26.7-34.0 [facility] Comment on above: Performed By: #### C BC #### [facility] [address] [place] [address] Dr. Rigo Sands MCHC (RBC) [Mass/Vol] 33.5 g/dL Normal 29.9-35.2 [facility] Comment on above: Performed By: #### C BC #### [facility] [address] [place] [address] Dr. Rigo Sands MCV (RBC) [Entitic vol] 91.5 fL Normal 81.0-99.0 [facility] Comment on above: Performed By: #### C BC #### [facility] [address] [place] [address] Dr. Rigo Sands MONO # 0.4 103/ul Normal 0.3-0.8 [facility] Comment on above: Performed By: #### C BC #### [facility] [address] [place] [address] Dr. Rigo Sands Monocytes/100 WBC (Bld) 4.0 % Normal 1.7-12.0 [facility] Comment on above: Performed By: #### C BC #### [facility] [address] [place] [address] Dr. Rigo Snads NEUT # 7.4 103/ul Critically high 1.4-6.5 [facility] Comment on above: Performed By: #### C BC #### [facility] [address] [place] [address] Dr. Rigo Sands Neutrophils/100 WBC (Bld) 78.1 % Critically high 43.0-75.0 [facility] Comment on above: Performed By: #### C BC #### [facility] [address] [place] [address] Dr. Rigo Sands Platelet mean volume (Bld) [Entitic vol] 12.3 fL Normal 9.5-13.5 [facility] Comment on above: Performed By: #### C BC #### [facility] [address] [place] [address] Dr. Rigo Sands PLT 199 103/ul Normal 150-450 [facility] Comment on above: Performed By: #### C BC #### [facility] [address] [place] [address] Dr. Rigo Sands RBC 4.37 106/ul Normal 4.20-5.40 [facility] Comment on above: Performed By: #### C BC #### [facility] [address] [place] [address] Dr. Rigo Sands WBC 9.5 103/ul Normal 4.0-11.0 [facility] Comment on above: Performed By: #### C BC #### [facility] [address] [place] [address] Dr. Rigo Sands ER URINE PROFILEon 2 Bilirubin Ql (U) Negative Normal NEGATIVE [facility] Comment on above: Performed By: #### E RUR ####[facility] [address] [place], [place] [address]Dr. Rigo Sands Clarity (U) CLEAR Normal CLEAR [facility] Comment on above: Performed By: #### E RUR ####[facility] [address] [place], [place] [address]Dr. Hilarygilma Sands Color (U) LT. YELLOW Normal YELLOW [facility] Comment on above: Performed By: #### E RUR ####[facility] [address] [place], [place] [address]Dr. Rigo Sands ERUAHD A micrscopic examination will be performed if indicated. Normal [facility] Comment on above: Performed By: #### E RUR ####[facility] [address] [place], [place] [address]Dr. Rigo Sands Glucose Ql (U) Negative Normal NEGATIVE [facility] Comment on above: Performed By: #### E RUR ####[facility] [address] [place], [place] [address]Dr. Rigo Sands Hemoglobin Ql (U) Negative Normal NEGATIVE [facility] Comment on above: Performed By: #### E RUR ####[facility] [address] [place], [place] [address]Dr. Rigo Sands Ketones Ql (U) 15 mg/dl Abnormal NEGATIVE [facility] Comment on above: Performed By: #### E RUR ####[facility] [address] [place], [place] [address]Dr. Rigo Sands LEUKOCYTES Negative Normal NEGATIVE [facility] Comment on above: Performed By: #### E RUR ####[facility] [address] [place], [place] [address]Dr. Rigo Sands Nitrite Ql (U) Negative Normal NEGATIVE [facility] Comment on above: Performed By: #### E RUR ####[facility] [address] [place], [place] [address]Dr. Rigo Sands pH (U) 6.0 [pH] Normal 5-9 [facility] Comment on above: Performed By: #### E RUR ####[facility] [address] [address]DrRobert Sands SPEC GRAVITY <=1.005 Abnormal 1.005-<=1.0 25 [facility] Comment on above: Performed By: #### E RUR ####[facility] [address] [address]DrRobert Sands UA PROTEIN Negative Normal NEGATIVE/ TRACE [facility] Comment on above: Performed By: #### E RUR ####[facility] [address] [address]Dr. Rigo Sands UR MICRO IND NOT INDICATED Normal [facility] Comment on above: Performed By: #### E RUR ####[facility] [address] [address]Dr. Rigo Sands Urobilinogen Qn (U) 0.2 {Keegan'U}/dL Normal 0.2 - 1. 0 [facility] Comment on above: Performed By: #### E RUR ####[facility] [address] [address]DrRobert Sands LIPASEon 02-15-2022 Lipase [Catalytic activity/Vol] 50.0 U/L Critically low 73.0-393.0 [facility] Comment on above: Performed By: #### C ANALIA LIPA #### [facility] [address] [place] [address] Dr. Rigo Sands PROF 14(COMP METB)on 022 Albumin [Mass/Vol] 3.8 g/dL Normal 3.4-5.0 [facility] Comment on above: Performed By: #### C ANALIA LIPA #### [facility] [address] [place] [address] Dr. Rigo Sands Albumin/Globulin [Mass ratio] 1.2 {ratio} Normal [facility] Comment on above: Performed By: #### C ANALIA LIPA #### [facility] [address] [place] [address] Dr. Rigo Sands ALP [Catalytic activity/Vol] 60 U/L Normal 46-116 [facility] Comment on above: Performed By: #### C MP, LIPA #### [facility] [address] [place] [address] Dr. Rigo Sands ALT [Catalytic activity/Vol] 36 U/L Normal 14-59 [facility] Comment on above: Performed By: #### C MP, LIPA #### [facility] [address] [place] [address] Dr. Rigo Sands Anion gap [Moles/Vol] 12.0 mmol/L Normal [facility] Comment on above: Performed By: #### C MP, LIPA #### [facility] [address] [place] [address] Dr. Rigo Sands AST [Catalytic activity/Vol] 16 U/L Normal 15-37 [facility] Comment on above: Performed By: #### C MP, LIPA #### [facility] [address] [place] [address] Dr. Rigo Sands Bilirubin [Mass/Vol] 0.3 mg/dL Normal 0.2-1.0 [facility] Comment on above: Performed By: #### C MP, LIPA #### [facility] [address] [place] [address] Dr. Rigo Sands Calcium [Mass/Vol] 8.8 mg/dL Normal 8.5-10.1 [facility] Comment on above: Performed By: #### C MP, LIPA #### [facility] [address] [place] [address] Dr. Rigo Sands Chloride [Moles/Vol] 104 mmol/L Normal 98-107 [facility] Comment on above: Performed By: #### C MP, LIPA #### [facility] [address] [place] [address] Dr. Rigo Sands CO2 [Moles/Vol] 27.6 mmol/L Normal 21.0-32.0 [facility] Comment on above: Performed By: #### C MP, LIPA #### [facility] [address] [place] [address] Dr. Rigo Sands Creatinine [Mass/Vol] 0.78 mg/dL Normal 0.55-1.02 [facility] Comment on above: Performed By: #### C MP, LIPA #### [facility] [address] [place] [address] Dr. Rigo Sands EGFR-AF ZAMBIAN >60 Normal >=60 [facility] Comment on above: Performed By: #### C MP, LIPA #### [facility] [address] [address] [address] Rigo Sands EGFR-NON AF ZAMBIAN >60 Normal >=60 [facility] Comment on above: Performed By: #### C MP, LIPA #### [facility] [address] [place] [address] Dr. Rigo Sands Globulin (S) [Mass/Vol] 3.2 g/dL Normal [facility] Comment on above: Performed By: #### C MP, LIPA #### [facility] [address] [place] [address] Dr. Rigo Sands Glucose [Mass/Vol] 83 mg/dL Normal 74-106 [facility] Comment on above: Performed By: #### C MP, LIPA #### [facility] [address] [place] [address] Dr. Rigo Sands Potassium [Moles/Vol] 3.6 mmol/L Normal 3.5-5.1 [facility] Comment on above: Performed By: #### C MP, LIPA #### [facility] [address] [place] [address] Dr. Rigo Sands Protein [Mass/Vol] 7.0 g/dL Normal 6.4-8.2 [facility] Comment on above: Performed By: #### C MP, LIPA #### [facility] [address] [place] [address] Dr. Rigo Sands Sodium [Moles/Vol] 140 mmol/L Normal 136-145 [facility] Comment on above: Performed By: #### C MP, LIPA #### [facility] [address] [place] [address] Dr. Rigo Sands Urea nitrogen [Mass/Vol] 16.0 mg/dL Normal 7.0-18.0 [facility] Comment on above: Performed By: #### C ANALIA, LIPMathew #### [facility] [address] [address] [address] Rigo Sands Urea nitrogen/Creatinine [Mass ratio] 20.5 mg/mg Normal [facility] Comment on above: Performed By: #### C MP, LIPA #### [facility] [address] [address] [address] Rigo Sands PROTIMEon 02-15-2022 INR Coag (PPP) [Relative time] 1.03 {INR} Normal [facility] Comment on above: Performed By: #### P TT, PT ####[facility] [address] [address]Dr. Rigo Sands INR GUIDELINES SEE BELOW Normal [facility] Comment on above: Result Comment: SERINA RED INR: 2.0 - 3.0 CONDITIONS NOT LISTED BELOW 2.5 - 3.5 FOR PROSTHETIC HEART VALVE REPLACEMENT 2.5 - 3.5 RECURRENT THROMBOSIS Performed By: #### P TT, PT ####[facility] [address] [address]Dr. Rigo Sands PT Coag (PPP) [Time] 11.1 s Normal 9.0-11.6 [facility] Comment on above: Performed By: #### P TT, PT ####[facility] [address] [address]Dr. Rigo Sands PTTon 02-15-2022 aPTT Coag (Bld) [Time] 26.8 s Normal 22.3-36.2 Th [facility] Comment on above: Performed By: #### P TT, PT ####[facility] [address] [place], [place] [address]Dr. Rigo Sands XR ABD FLAT UP_PA Jeannette [...] MAURO POSADAS Date: 2022-02-15 14:44 Normal [facility] XR hand LT min 3V*on 022 XR hand LT min 3V* [facility] Other XR hand LT min 3V* [facility] Other XR hand LT min 3V* [address] [place] [address] [employer] Other XR hand LT min 3V* LIA Roman [address] [employer] Other XR hand LT min 3V* XRay Report [facility] Other XR hand LT min 3V* Signed [facility] Other XR hand LT min 3V* Patient: Torrey Antony MR#: [id number] [facility] Other XR hand LT min 3V* [id number] [employer] Other XR hand LT min 3V* : 1990 Acct:[id number] [facility] Other XR hand LT min 3V* Age/Sex: 30 / F ADM Date: 10/18/21 [facility] Other XR hand LT min 3V* Loc: XDUCLY Room: pe: REG CLI [facility] Other XR hand LT min 3V* Attending Dr: Tiki GODDARD [facility] Other XR hand LT min 3V* Ordering Provider: NITZA Edgar [facility] Other XR hand LT min 3V* Date of Service: 10/18/21 [facility] Other XR hand LT min 3V* XR/XR hand LT min 3V*: Left hand pain [facility] Other XR hand LT min 3V* Copies to: NITZA Edgar [facility] Other XR hand LT min 3V* 4 viewsleft hand denise in film [facility] Other XR hand LT min 3V* COMPARISON:None N [employer] Other XR hand LT min 3V* HISTORY:Left hand injury. [facility] Other XR hand LT min 3V* No fracture, dislocation or focal soft tissue abnormality seen. [facility] Other XR hand LT min 3V* XR/XR hand LT min 3V* [facility] Other XR hand LT min 3V* IMPRESSION:No acute findings [facility] Other XR hand LT min 3V* Impression dictated by: Elton Rodrigez M.D.10/18/2021 11:50 AM [facility] Other XR hand LT min 3V* Dictation Location: [place] [address] [facility] Other XR hand LT min 3V* Transcribed By: DIANA 10/18/21 1150 [facility] Other XR hand LT min 3V* Dictated By: Elton Rodrigez DO 10/18/21 1149 [employer] Other XR hand LT min 3V* Signed By: [facility] Other XR hand LT min 3V* 10/18/21 1150 [facility] Other Phone Sunita 04-22-2021 Phone Msg Entered by MERCEDES HOPKINS FACOG, NAZ on April 22, 2021 15:42:24 EDT From: NAZ LONG MD, FACOG To: [facility]/pharmacy #[id number] Sent: 04/22/2021 15:42:23 EDT Subject: Medication Management Not Approved: Patient should contact Prescriber first ibuprofen = Motrin, Advil (IBUPROFEN 600 MG TABLET) TAKE 1 TABLET BY MOUTH EVERY 6 HOURS Qty: 40 tabs Days Supply: 10 Refills: 0 Substitutions Allowed Route To Pharmacy - [facility]/pharmacy #[id number] From: [facility] STORE [id number] To: NAZ LONG MD Sent: April 22, 2021 3:29:46 PM EDT Subject: Medication Management Due: April 08, 2021 4:20:54 PM EDT On Hold Pending Signature Dispensed Drug: ibuprofen = Motrin, Advil (ibuprofen 600 mg oral tablet), TAKE 1 TABLET BY MOUTH EVERY 6 HOURS Quantity: 40 tabs Days Supply: 10 Refills: 0 Substitutions Allowed Notes from Pharmacy: Normal [facility] Operative Reporton Operative Report MR#: [id number] [facility] Pt. Name: Torrey Antony Room #: 0C Discharge Date: Birthdate: 1990 OPERATIVE REPORT DATE OF SURGERY: 11/30/2020 SURGEON: Frances Nicole M.D. WOODENWARE ASSEMBLER: Maribel Vazquez MD PREAMBLE: A 29-year-old female [...] Nicole M.D. Date Trans: 11/30/2020 10:59 A/simran [id number] cc: Miriam Reeves, ELECTROLYSIS ENGINEER [address] [facility] [address] Normal [facility] POC GLUCOSE LABon 11-30-2020 Glucose [Mass/Vol] 75 mg/dL Normal 70-100 [facility] Comment on above: Performed By: #### 8 [id number] #### [facility] POC URINE PREGNANCYon 2020 Beta HCG ( test) Ql (U) Negative Normal NEGATIVE [facility] Comment on above: Result Comment: Perf ormed in PACU Performed By: #### 8 4140 #### [facility]. [address] Phone Msgon 11-21-2020 Phone Msg - From: NAZ LONG MD, FACOG To: TORREY ANTONY Sent: 11/20/2020 22:44:14 EDT Subject: Normal pap Torrey, Your pap smear was normal. Naz Long MD Normal [facility] THIN PREP IMAGE SEND OUTon 0 11-20-2020 THIN PREP IMAGE SEND OUT See Report Normal [facility] Comment on above: Performed By: #### C D:[id number] #### [facility] [address] [place], [place] [id number] Chef Teacher: Yobany Diaz MD Operative Reporton Operative Report [...] quadrant under direct visualization. I used the Campbell-GeBritely graspers to grasp the left fallopian tube [...] at the end of the procedure. Normal [facility] Amb Office-Progress Notes-Pr ovideron 11-08-2020 Amb Office-Progress Notes-Provider Assessment/Plan 1. Cervical cancer screening Z12.4 Ordered: AMB Office/Outpt Est Pt SF MDM / 10-19 min [id number], 11/08/2020 12:43:00 EDT, Cervical cancer screening THIN PREP IMAGE SEND OUT, ROUTINE, 11/08/2020, Specimen type: FIBROUS WALLBOARD INSPECTOR Spec, Dx: Cervical cancer screening Chief Complaint [...] normal: yes Insight and judgement normal: yes FIBROUS WALLBOARD INSPECTOR: External genitalia: normal, no lesions Urethra: normal meatus Vagina: normal no lesions, no discharge, vault normal Cervix: no lesions, no cervical motion tenderness, normal appearance Uterus: normal mobility, non-tender, normal size, shape and consistency Adnexa: normal Cul de sac: normal Perineum: no hemorrhoids, masses or warts noted FIBROUS WALLBOARD INSPECTOR Additional Details Menstrual History Menstrual StatusProphylaxis Problem List/Past Medical History Ongoing Anxiety BMI 33.0-33.9,adult Gastritis Irregular periods IUD (intrauterine device) in place Migraine with aura Historical Procedure/Surgical History Anjana IUD Lot # [id number] (07/29/2020) LAPAROSCOPIC RIGHT OOPHERECTOMY (12/24/2018) D&C/Nexplanon removal () D&C, retained placenta (2014) Pap negative (06/16/2014) Medications ibuprofen 600 mg oral tablet, 600 mg= 1 tabs, ORAL, U5EXAXV Anjana 13.5 mg intrauterine device, 13.5 mg= [...] about 70). Stroke..: Grandfather and Grandmother. Normal [facility] Ambulatory Clinical Summaryo n 11-08-2020 Ambulatory Clinical Summary TORREY ANTONY :1990 Visit Date:11/08/2020 Ambulatory Visit Instructions Your Care Team Attending Physician - NAZ LONG MD, FACOG Primary Care Physician - EMILY FAMILY PHYSICIAN, 837 Procedures Performed Anjana IUD Lot # [id number] (07/29/2020) LAPAROSCOPIC RIGHT OOPHERECTOMY (12/24/2018) D&C/Nexplanon removal [...] call to get immediate medical attention! Normal [facility] Phone Msgon 09-15-2020 Phone Msg Entered by Luli Ribeiro on September 15, 2020 11:07:26 EDT I called and left her a voice mail to call and scheduled her surgery. Please find the order information listed below. Ordered By:NAZ LONG MD, FACOG REGIMEN_DETAIL: Requested Start Date/Time: 09/14/2020 11:37:00 EDT Intent of therapy: From: Luli Ribeiro ([facility] Surgery Scheduling) To: NAZ LONG MD; Sent: 09/15/2020 16:07:14 EDT Subject: RE: AMB Schedule Surgery called back and scheduled her, made her post op appt. she is scheduled for 11/19/2020 scheduled her, made her post op appt. she is scheduled for 11/19/2020 scanned in chart Normal [facility] Phone Msg - From: Luli Ribeiro ([facility] Surgery Scheduling) To: NAZ LONG MD; Sent: 09/15/2020 11:06:57 EDT Subject: RE: AMB Schedule Surgery Called and left her a voice mail to call and schedule her surgery, I am looking at 10/15/2020 at the [facility]. Please find the order information listed below. Ordered By:NAZ LONG MD, FACOG REGIMEN_DETAIL: Requested Start Date/Time: 09/14/2020 11:37:00 EDT Intent of therapy: Normal [facility] Ambulatory Clinical Summaryo n 09-14-2020 Ambulatory Clinical Summary TORREY ANTONY :1990 Visit Date:09/14/2020 Ambulatory Visit Instructions Your Diagnosis Mastalgia Your Care Team Attending Physician - NAZ LONG MD, FACOG Primary Care Physician - NO FAMILY PHYSICIAN, 837 Procedures Performed Anjana IUD Lot # [id number] (07/29/2020) LAPAROSCOPIC RIGHT OOPHERECTOMY (12/24/2018) Laparoscopy, surgical; [...] call to get immediate medical attention! Normal [facility] Phone Msgon 09-14-2020 Phone Msg - From: Cat Diaz To: Luli Ribeiro; Sent: 09/14/2020 12:57:29 EDT Subject: Surgery Pt needs scheduled for a tubal ligation. Forms have been scanned into documents - consent. Normal [facility] Ambulatory Clinical Summaryo n 07-29-2020 Ambulatory Clinical Summary TORREY ANTONY :1990 Visit Date:07/29/2020 Ambulatory Visit Instructions Your Diagnosis Pre-procedure lab exam Encounter for IUD removal and reinsertion Tests Performed AMB Urine POC [id number] Your Care Team Attending Physician - MERCEDES HOPKINS FACOG, NAZ Primary Care Physician - EMILY FAMILY PHYSICIAN, 837 Procedures Performed Anjana IUD Lot # [id number] (07/29/2020) Kyleena Iud removed 07/29/20 (12/24/2018) LAPAROSCOPIC [...] migraine headache Test Results AMB Urine POC [id number] (07/29/2020) U beta hCG Ql - Negative [...] call to get immediate medical attention! Normal [facility] Phone Msgon 07-14-2020 Phone Msg - From: Gay Lam To: Kathleen Lopez RN; Sent: 07/13/2020 15:20:51 EST Subject: test results Patient is calling and would like to have the results from her genetic testing. If you can please call her. [phone] From: Kathleen Lopez RN To: NAZ LONG MD; Sent: 07/13/2020 15:29:49 EST Subject: FW: test results I spoke with her about her results. Normal [facility] C GENITALon 06-26-2020 C GENITAL [facility] [address] [place] [id number] Name: TORREY ATNONY : 1990 Admitting Provider: Gender: Female Financial [phone] Number: Location: [facility]. Admit 06/22/2020 Date: Discharge 06/22/2020 Date: [...] Print Date/ 06/28/2020 08:29 EST Time: Normal [facility] Comment on above: Performed By: #### 1 [id number] #### [facility] [address] [place] [address] Chef Teacher: Yobany Diaz MD GP [place] 06-23-2020 Genprobe Chlamydia Negative Normal [facility] Comment on above: Order Comment: Order ed on [facility]# [id number] Result Comment: This Chlamydia assay is being performed via a second generation NAAT that utilizes target capture, professional tutor mediated amplification and dual kenetic assay technologies. Performed By: #### C D:[id number] ####[facility] [address] [place] [address] Medical Director: Yobany Diaz MD GP GCon 06-23-2020 Genprobe GC Negative Normal [facility] Comment on above: Order Comment: Order ed on Fin# [id number] Result Comment: This Gonorrhoea assay is being performed via a second generation NAAT that utilizes target capture, professional tutor mediated amplification and dual kenetic assay technologies. Performed By: #### C D:[id number], [id number] ####[facility] [address] [place] [address] Medical Director: Yobany Diaz MD GP Trichomonason 06-23-2020 GP Trichomonas Negative Normal [facility] Comment on above: Order Comment: Order ed on Fin# [id number] Result Comment: This Trichomonas assay is being performed via a second generation NAAT that utilizes target capture, professional tutor mediated amplification and dual kenetic assay technologies. Performed By: #### C D:[id number] ####[facility] [address] [place] [address] Medical Director: Yobany Diaz MD HEP B AGon 06-23-2020 Hepatitis B Surface Antigen Non-Reactive Normal [facility] [facility] Comment on above: Order Comment: Order ed on Fin# [id number] Result Comment: High levels of serum biotin may interfere with this test. Performed By: #### 1 [id number], [id number] #### [facility] [address] [place] [address] Chef Teacher: Yobany Diaz MD HEP C ABon 06-23-2020 Hepatitis C Antibody Non-Reactive Normal So [facility] Comment on above: Order Comment: Order ed on Fin# [id number] Performed By: #### 1 [id number], [id number] #### [facility] [address] [place] [address] Chef Teacher: Yobany Diaz MD HIV 1O2on 06-23-2020 HIV Panel 1&2 Non-Reactive Normal [facility] Comment on above: Order Comment: Order ed on Fin# [id number] Performed By: #### 1 [id number] #### [facility] [address] [place] [address] Chef Teacher: Yobany Diaz MD RPRon 06-23-2020 Reagin Ab RPR Ql (S) Non-Reactive Normal So [facility] Comment on above: Order Comment: Order ed on Fin# [id number] Performed By: #### 1 [id number] #### [facility] [address] [place] [address] Chef Teacher: Yobany Diaz MD [facility] Ambulatory Clinical Summary TORREY ANTONY [...] call to get immediate medical attention! Normal [facility] Phone Msgon 06-22-2020 Phone Msg - From: [...] it is called in. Cytote proposed Normal [facility] US TV ECHO NON OB OFFICE REVA [...] position and orientation. Normal left ovary. Normal [facility] Comment on above: Order Comment: Order ed on Fin# [id number] Result Comment: Tech nologist: LEE Dictated By: NAZ LONG MD, FACOG Signed By: NAZ LONG MD, FACOG Transcribed: 06.22.2020 14:34 Signed Out: 06/22/20 14:34:04 Operative Reporton 0 Operative Report MR#: [id number] S [facility] Pt. Name: Torrey Antony Room #: 0C Discharge Date: Birthdate: 1990 OPERATIVE REPORT DATE OF SURGERY: 04/26/2020 SURGEON: Frances Nicole M.D. WOODENWARE ASSEMBLER: Maribel Vazquez MD PREOPERATIVE DIAGNOSIS: Left wrist [...] Vazquez MD Date Trans: 04/26/2020 11:31 A/simran [id number] cc: Miriam Reeves, ELECTROLYSIS ENGINEER [address] [facility] [address] Normal [facility] POC GLUCOSE LABon 04-26-2020 Glucose [Mass/Vol] 81 mg/dL Normal 70-100 [facility] Comment on above: Performed By: #### 8 [id number] #### [facility] [address] POC URINE PREGNANCYon 2019 Beta HCG ( test) Ql (U) Negative Normal NEGATIVE [facility] Comment on above: Result Comment: Perf ormed in PACU Performed By: #### 8 [id number] #### [address] *SARS-CoV-2 COVID-19on 04-24 SARS-CoV-2 (COVID-19) RNA OK+probe Ql (Unsp spec) Not detected Normal Not Detected [facility] Comment on above: Order Comment: The A ptima SARS-CoV-2 assay is a nucleic acid amplification test intended for the qualitative detection of RNA from SARS-CoV-2 isolated and purified from nasopharyngeal (GOLF BALL INSPECTOR),oropharyngeal (OP), nasal swab, sputum, and bronchoalveolar lavage (BAL) specimens from patients with signs and symptoms of infection who are suspected of COVID-19. Results are for the identification of SARS-CoV-2 RNA. The SARS-CoV-2 RNA is generally detectable during the acute phase of infection. The Aptima SARS-CoV-2 Assay on the Nouvola and Satin Fusion system is intended for use by laboratory personnel specifically instructed and trained in the operation of the Satin and Nouvola Fusion system. The Aptima SARS-CoV-2 assay is [...] information. Performed By: #### 3 1792 #### [address] NM Hepatobiliary System w/ P fonseca 06-12-2017 NM Hepatobiliary System w/ Pharm Patient Name: TORREY ANTONY Nuc Med Exam Date/Time 06/12/2017 13:09:26 EST Exam NM Hepatobiliary Duct System Imaging Ordering Physician ROSENDODO MOSCOSO PAUL FRANCIS Accession Number [id number] CPT4 Codes 19807 () Reason For Exam Nausea Report Study: [...] Transcribed Date and Time: 06/12/2017 1:28 Normal [facility] CNOVon 05-22-2017 CNOV Office Visit (WALKWA) TORREY ACEVEDO ([id number]) 1990 [facility] Time Provider Dvmpdsusfh99/5/17 9:30 AM KAMRAN WALLIS) GABY During your visit today, we recorded the following information about you: Temperature Pulse Respiration Blood pressure 96.8 degrees 101/minute 16/minute 113/80 Weight 87.1 kgRachel Amee Wallis PA-C, PA 05/22/2017 10:14 AM Ejffbd6805/22/2017Patient presents with:Acute VisitSUBJECTIVE: This is a 26 [...] labs, fluids, or any imaging from this [facility] Care settingReferred to ER for further eval of pain- labs, fluids, may need imaging- [facility] ERVitals stable, no fever. She refused [...] agreement with plan of care. Sameer KrishnamurthyMARCIN [facility] Hillrebecca [address], [address], [place] [address]Vsbnb: [phone]: [phone] P [place] 2016RE: Torrey AntonyTo Whom it May Concern:This is to certify that Torrey Antony was seen here for medical care.Please excuse them from work today.Thank you for your cooperation in this matter.Sincerely,Kamran Wallis PA-C(Electronically signed to expedite processing) Status:Closed by KAMRAN WALLIS on 05/22/17 Normal [facility] PROGRESSon 05-22-2017 PROGRESS HNO ID: [id number]: Kamran Lubin (Tatiana) Jesus Wallis: (none)Author Type: [...] pain- labs, fluids, may need imaging-[facility] ERVitals stable, no fever. She refused offer of antiemetics, PPI, and watchan see option for possible simply viral cause- and go to ER this afternoonif persisting. She would prefer ER now.No further questions.Follow up as needed.Barriers to learning: none.The patient verbalizes understanding and is in agreement with plan ofcare.Kamran Wallis PA-C Normal [facility] CR Chest PA/LATon 04-07-2017 CR Chest PA/LAT Patient Name: TORREY CAAL Diagnostic Radiology Exam Date/Time 04/07/2017 10:07:18 EDT Exam CR Chest PA/LAT Ordering Physician MD RUTHIE, MAURO Lubin Accession Number [id number] CPT4 Codes 27683 () Reason For Exam dyspnea Report CHEST [...] Transcribed Date and Time: 04/07/2017 10:25 Normal [facility] RF Small Bowel w/ Serial Ryan mson 01-01-2017 RF Small Bowel w/ Serial Films Patient Name: TORREY ANTONY Fluoroscopy Exam Date/Time 01/01/2017 10:06:32 EDT Exam RF Small Bowel w/ Serial Films Ordering Physician DO ROWELL PAUL FRANCIS Accession Number [id number] [facility] Codes 58484 () Reason For Exam epigastric pain Report [...] Transcribed Date and Time: 01/01/2017 11:18 Normal [facility] Surgical Pathologyon 06-27-2 017 Surgical Pathology [id number] [facility] PATHOLOG[facility] AND [facility]ORATORY MEDICINE [address] [place] [phone] Fax - FINAL SURGICAL PATHOLOGY REPORT NAME: TORREY ANTONY .O.B.: 1990 25 Y F BILLING NO.: [id number]: WENDO PROCEDURE 12/12/2016 DATE:SURGEON: MANI ROWELL DO [...] Submitted entirely in one cassette. (2ns, 1) MLC1/EUS2Exswinwhmb: The following statement applies to allimmunohistochemistry , in situ hybridization, molecular studies, andimmunofluorescence testing.The use of one or more reagents in the above tests is regulated as ananalyte specific reagent (ASR). These tests were developed and theirperformance characteristics determined by the clinical laboratories [facility]. They have not been cleared by [...] false negativity on decalcified specimens[place] [address]. DEPARTMENT OF PATHOLOGY AND LABORATORY MEDICINE [place], [place] [address] Normal [facility] Comment on above: Performed By: #### S UR ####Performing Lab is in report US Abdomen Limitedon 017 US Abdomen Limited Patient Name: TORREY CAAL Ultrasound Exam Date/Time 12/12/2016 12:25:54 EDT Exam US Abdomen Limited Ordering Physician DO ROWELL PAUL FRANCIS Accession Number [id number] CPT4 Codes 67216 () Reason For Exam epigasric pain Report [...] Transcribed Date and Time: 12/12/2016 3:07 Normal [facility] Anti-Nuclear Antibodyon 11-17 VLADISLAV Titer <1:40 Normal <1:40 [facility] Comment on above: Performed By: #### A NA ####[address] [address] Vital Signs Date Time Vital Sign Value Performing Clinician Facility 10-16-2023 14:50-0400 Body temperature 97.8 [degF] 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 Tiki Thomas Work Phone: [facility] 10-16-2023 14:50-0400 Diastolic blood pressure 78 mm[Hg] 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 Tiki Thomas Work Phone: [facility] 10-16-2023 14:50-0400 Heart rate 77 /min 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 Tiki Thomas Work Phone: [facility] 10-16-2023 14:50-0400 Respiratory rate 16 /min 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 Tiki Thomas Work Phone: [facility] 10-16-2023 14:50-0400 SaO2% (BldA) [Mass fraction] 98 % 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 Tiki Thomas Work Phone: [facility] 10-16-2023 14:50-0400 Systolic blood pressure 120 mm[Hg] 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 Tiki Thomas Work Phone: [facility] 10-16-2023 10:05-0400 Body height 165.1 cm 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 Tiki Thomas Work Phone: [facility] 10-16-2023 10:05-0400 Body weight 66.1 kg 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 Tiki Thomas Work Phone: [facility] 10-15-2023 16:25-0400 Diastolic blood pressure 80 mm[Hg] [facility] 10-15-2023 16:25-0400 Heart rate 95 /min [facility] 10-15-2023 16:25-0400 SaO2% (BldA) [Mass fraction] 99 % [facility] 10-15-2023 16:25-0400 Systolic blood pressure 102 mm[Hg] [facility] 03-22-2023 16:00-0400 Body height 167.64 cm Mark Myrick Other [facility] [employer] Other 03-22-2023 16:00-0400 Diastolic blood pressure 80 mm[Hg] Mark Myrick Other [facility] [employer] Other 03-22-2023 16:00-0400 SaO2% (BldA) [Mass fraction] 98 % Mark Myrick Other [facility] Other 03-22-2023 16:00-0400 Systolic blood pressure 120 mm[Hg] Mark Myrick Other [facility] Other 12-20-2022 09:00-0400 Body height 167.64 cm Arely Jackman Other [facility] Other 12-20-2022 09:00-0400 Body mass index (BMI) [Ratio] 30.37 kg/m2 Arely Jackman Other [facility] Other 12-20-2022 09:00-0400 Body weight 85.37 kg Arely Jackman Other [facility] Other 12-20-2022 09:00-0400 Diastolic blood pressure 70 mm[Hg] Arely Jackman Other [facility] Other 12-20-2022 09:00-0400 SaO2% (BldA) [Mass fraction] 99 % Arely Jackman Other [facility] Other 12-20-2022 09:00-0400 Systolic blood pressure 118 mm[Hg] Arely Jackman Other [facility] Other 12-14-2022 13:15-0400 Body height 167.64 cm Mark Ramez Other [facility] Other 12-14-2022 13:15-0400 Diastolic blood pressure 86 mm[Hg] Mark Myrick Other [facility] Other 12-14-2022 13:15-0400 SaO2% (BldA) [Mass fraction] 98 % Mark Myrick Other [facility] Other 12-14-2022 13:15-0400 Systolic blood pressure 122 mm[Hg] Mark Myrick Other [facility] Other 12-06-2022 13:08-0400 Diastolic blood pressure 84 mm[Hg] 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 Tiki Thomas Work Phone: [facility] 12-06-2022 13:08-0400 Heart rate 87 /min 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 Tiki Thomas Work Phone: [facility] 12-06-2022 13:08-0400 Respiratory rate 16 /min 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 Tiki Thomas Work Phone: [facility] 12-06-2022 13:08-0400 SaO2% (BldA) [Mass fraction] 98 % 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 Tiki Thomas Work Phone: [facility] 12-06-2022 13:08-0400 Systolic blood pressure 126 mm[Hg] 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 Tiki Thomas Work Phone: [facility] 12-06-2022 12:21-0400 Inhaled oxygen flow rate 3 L/min 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 Tiki Thomas Work Phone: [facility] 12-06-2022 09:28-0400 Body height 165.1 cm 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 Tiki Thomas Work Phone: [facility] 12-06-2022 09:28-0400 Body weight 85.27 kg 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 Tiki Thomas Work Phone: [facility] 10-16-2022 17:00-0400 Body height 167.64 cm Mark Myrick Other [facility] [employer] Other 10-16-2022 17:00-0400 Diastolic blood pressure 80 mm[Hg] Mark Myrick Other [facility] [employer] Other 10-16-2022 17:00-0400 SaO2% (BldA) [Mass fraction] 98 % Mark Myrick Other [facility] Other 10-16-2022 17:00-0400 Systolic blood pressure 122 mm[Hg] Mark Myrick Other [facility] Other 09-14-2022 16:30-0400 Body height 167.64 cm Mark Myrick Other [facility] Other 09-14-2022 16:30-0400 Body mass index (BMI) [Ratio] 30.73 kg/m2 Mark Myrick Other [facility] Other 09-14-2022 16:30-0400 Body weight 86.37 kg Mark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 note* Encounter Date Diagnosis [...] these diagnostic procedures prior to surgical intervention. [facility] Other 12-07-2021 Evaluation note* Encounter Date Diagnosis [...] F/u as scheduled for mid back pain. [facility] Other 10-22-2021 Evaluation note* Encounter Date Diagnosis [...] - M65.4) Stable, follow up as needed. [facility] Other 09-27-2021 Evaluation note* Encounter Date Diagnosis [...] I will consider a paravertebral nerve block. [facility] Other Evaluation noteNortadRise Other Evaluation noteNo InformationNortadRise Other Evaluation noteNo assessment information available [facility] Work Phone: Evaluation note* Diagnosis Onset Date Resolution Status Chronic pain acute Other migraine, not intracta ble, without status migrainosus acute [facility] Work Phone: History general Narrative - Reported* Type Description Date Medical History Depression Medical History Back Pain Medical History torn tendons Larm Surgical History D&C x2 Surgical History EGD Surgical History Colonoscopy Surgical History oophorectomy Surgical History ovarian cyst Surgical History Right Ovary Removal 01/2019 Surgical History left wrist Surgical History tendon repair L forearm 11/30/20 Hospitalization History Child Birthx1 [facility] Other History general Narrative - ReportedNoadRise Other Hospital Discharge instructions Additional Instructions If your symptoms return/worsen or you develop any further concerns or symptoms please see your doctor or return to the emergency department immediately.[facility] Work Phone: Summary Purpose Family History [...] section and content) DATE CREATED AUTHOR 12/05/2017 [facility] DATE CREATED AUTHOR AUTHOR'S ORGANIZ ATION 12/11/2017 [facility] DATE CREATED AUTHOR AUTHOR'S ORGANIZ ATION 12/11/2017 [facility] DATE CREATED AUTHOR AUTHOR'S ORGANIZ ATION 12/12/2017 [facility] DATE CREATED AUTHOR AUTHOR'S ORGANIZ ATION 12/12/2017 [facility] DATE CREATED AUTHOR AUTHOR'S ORGANIZ ATION 01/14/2021 [facility] DATE CREATED AUTHOR AUTHOR'S ORGANIZ ATION 04/24/2021 [facility] DATE CREATED AUTHOR AUTHOR'S ORGANIZ ATION 11/24/2022 [facility] DATE CREATED AUTHOR AUTHOR'S ORGANIZ ATION 12/02/2022 [facility] DATE CREATED AUTHOR AUTHOR'S ORGANIZ ATION 10/27/2023 [facility] DATE CREATED AUTHOR AUTHOR'S ORGANIZ ATION 05/05/2024 [facility] REASON FOR VISIT (unrecogniz ed [...] to office today due to transportation issues, [employer] platform used for virtual visitbotox for migraine [...] BE BASED ON THE PRIMARY CLINICAL RECORDS. [facility]. provides no warranty or guarantee of the accuracy or completeness of information in this document.
== END 2024-07-08 10:23 | disposition home or self-care (01) ==
LOC: PM 10:23
PROVIDERS: PCP Nurse Practitioner Family; Visit Provider Anesthesiology Pain Medicine
DX: M79.18 Myalgia, other site (principal); G56.32 Lesion of radial nerve, left upper limb
CPT/HCPCS: 20552; J0665; J3301

== ENCOUNTER 2024-07-10 10:44 | Outpatient (OUT) | payer OTHER, SELFPAY ==
[2024-07-10 11:08] LABS: Basophils Percent Auto 0.3 % (0.2-2.0); Eosinophils Percent Auto 0.7 % (0.9-7.0); Hematocrit 39.2 % (36.0-48.0); Hemoglobin 13.2 g/dL (12.0-16.0); Immature Granulocytes Abs Auto 0.02 10^3/uL (0.00-0.03); Immature Granulocytes Pct Auto 0.3 % (0.0-0.5); Lymphocytes Absolute Auto 1.3 10^3/uL (1.2-3.8); Lymphocytes Percent Auto 21.2 % (20.5-60.0); Mean Corpuscular HGB Conc 33.7 g/dL (29.9-35.2); Mean Platelet Volume 11.9 fL (9.5-13.5); Monocytes Absolute Auto 0.3 10^3/uL (0.3-0.8); Monocytes Percent Auto 5.1 % (1.7-12.0); Neutrophils Absolute Auto 4.3 10^3/uL (1.4-6.5); Neutrophils Percent Auto 72.4 % (43.0-75.0); Platelet Count 192 10^3/uL (150-450); Red Blood Count 4.26 10^6/uL (4.20-5.40); Red Cell Distribution Width 13.6 % (11.0-15.0); White Blood Count 5.9 10^3/uL (4.0-11.0)
[2024-07-10 11:42] LABS: Estimated Average Glucose 88 mg/dL; Glycohemoglobin A1C 4.7 % (4.5-6.2)
[2024-07-10 11:50] LABS: Alanine Aminotransferase 26 U/L (14-59); Albumin Globulin Ratio 1.2; Albumin Level 3.9 g/dL (3.4-5.0); Alkaline Phosphatase 57 U/L (46-116); Anion Gap 13.2; Aspartate Amino Transferase 15 U/L (15-37); BUN Creatinine Ratio 16.4; Bilirubin Total 0.4 mg/dL (0.2-1.0); Calcium 8.9 mg/dL (8.5-10.1); Carbon Dioxide 28.4 mmol/L (21.0-32.0); Chloride 103 mmol/L (98-107); Chol HDL Ratio 3.5; Cholesterol 197 mg/dL (<=200); Estimated GFR (African America >60 (>=60 mL/min/1.73m^2); Estimated GFR (Non-African Ame >60 (>=60 mL/min/1.73m^2); Free T3 2.26 pg/mL (2.18-3.98); Globulin 3.3 g/dL; Glucose 81 mg/dL (74-106); HDL Cholesterol 57 mg/dL (40-60); LDL Cholesterol Calculated 130.8 mg/dL; Potassium 3.6 mmol/L (3.5-5.1); Sodium 141 mmol/L (136-145); Thyroid Stimulating Hormone 2.526 uIU/mL (0.358-3.740); Total Protein 7.2 g/dL (6.4-8.2); Triglycerides 46 mg/dL (<=150); VLDL CHOLESTEROL 9.2 mg/dL
[2024-07-11 03:08] LABS: Insulin 9.5 uIU/mL (2.6-24.9)
== END 2024-07-10 10:45 | disposition home or self-care (01) ==
LOC: LAB 10:45
PROVIDERS: PCP Nurse Practitioner Family; Visit Provider Nurse Practitioner Family
DX: Z00.00 Encounter for general adult medical examination without abnormal findings (principal)
CPT/HCPCS: 36415; 80053; 80061; 83036; 83525; 84436; 84443; 84481; 85025

== ENCOUNTER 2024-07-23 12:43 | Outpatient (OUT) | payer OTHER, SELFPAY ==
--- OUTSIDE RECORDS SUMMARY | 2024-07-23 13:03 | XMS_ITS | CCD ---
Author Organization [facility] Care Team Providers Care Dye Tub Operator Name Role Phone Turowski, Mani Unavailable Unavailable [...] Primary Care Unavailable JULIUS, MIRIAM Referring Unavailable [place] Procedure Practitioner Unavailab le BONNIE, ABDULAZIM Attending Unavailable BONNIE, ABDULAZIM Surgeon Unavailable BONNIE, ABDULAZIM Admitting Unavailable JULIUS, MIRIMA Referring Unavailable JULIUS, MIRIAM Primary Care Unavailable [place] Procedure Practitioner Unavailab salvador Myrick, Mark Unavailable [...] Care Provider DO Oh Aparicio Emergency Provider Tiki Thomas Primary Care Unavailable Mark Myrick Attending Unavailable Mark Myrick Admitting Unavailable Oh Aparicio Attending Unavailable Oh Aparicio Admitting Unavailable Tiki Thomas Primary Care Unavailable KRANTHI ACHARYA Attending Unavailable KRANTHI ACHARYA Admitting Unavailable Provider, None Primary Care Unavailable Allergies Allergy Classification Reported Allergen(s) Allergy Type Date of Onset Reaction(s) Facility Penicillins (antibiotic) (1 source) Penicillin; Translations: [PENICILLIN] Drug Allergy 0 [facility] Repository (20 sources) Bee/Wasp/Ant venom Propensity to adverse reactions localized reaction [facility] [employer] Other (20 sources) Penicillin Drug Allergy Soccer Manager [facility] Other (5 sources) Penicillins; Translations: [PENICILLINS] Drug allergy (disorder) 9 [facility] Repository (4 sources) BEE VENOM PROTEIN (HONEY BEE); Translations: [BEE VENOM PROTEIN (HONEY BEE)] Propensity to adverse reactions to drug (disorder) 5 localized reaction [facility] Repository (1 source) Penicillins Drug allergy (disorder) 4 [facility] Repository Medications Current Medications Medication Drug Class(es) [...] Orally Twice a day Active Thyroid (Pork) ([place] Thyroid) 90 mg tablet (1 source) Start: 12-07-19 take 1 tablet by mouth once daily Thyroid (Pork) ([place] Thyroid) 90 mg tablet Active 90 MG PO Daily December 06, 2022 12:00am thyroid (group home) 90 mg oral tablet (2 sources) Start: 12-07-19 take 1 tablet by mouth once daily Thyroid (Pork) ([place] Thyroid) 90 mg tablet Active 90 MG PO Daily December 06, 2022 12:00am Completed/Discontinued Medications Medication Drug Class(es) Dates Sig (Normalized) Sig (Original) acetaminophen 325 mg / HYDROcodone bitartrate 5 mg oral tablet (3 sources) Opioid Agonist Start: 01-18-2020 End: 07-13-2021 take 1 tablet by mouth every four to six hours Hydrocodone-Acetam inophen ([place]) 5-325 mg Tablet Discontinued 1 TAB PO [...] 2018 1:00am January 15, 2020 8:18am levonorgestrel 0.213568 mg/hr intrauterine system (3 sources) Progestin, Progestin-containin [...] Onset: 11-13-2017 Other aftercare (1 source) Other senior care (current) drug therapy; Translations: [OTH CUSTODIAL CURRENT DRUG THERAPY] Onset: 11-14-2022 Episodic Other [...] Coding Summaryon 05-03-2024 Coding Summary HTMLBase 64 KhqvspxcMDa3oZj+PGhlYWQ +IZ5OVNMyB74kcMNoeE2gE1 NMTElOSywgQVBQTElOSyIgb eKdPX8zgHQfYHLm IC8+FP5fQMGzJifdwUIsr7L 2zSQ0G25fyd0cRNyqvOR3JP BpBxVcoveqx7ypkAd6UUmsL mluOyBt QKHzjR50ZXD8wD13Ak99lUY icVFjk0accUi1ZpYxJWBsXE X1jIyiWCykn4FxBWRcL62qa VFxa7L8 CTErzFkfjGSgTtJjxQZ9dS8 rMBdpcxwti1dnlstuNxt6ri 54oZZqu3X1kMG9C7McojV4J GJvbGQg BelhxXEMiI9jnheug9smfwt pXxBbTFKdUIp5XZe7VKHrtV kuZcUuIZ25NER7BSMtrdBeM 2FsLWFs hFkbMlJ1g9W2Pt9VF3WRCjo mT5OWSLKFSDnznVS+PC90cj 16Q7YmHsddRch2TKWxNYH0q KZ8wQ7k USBmAUwtg5F3iDX6G0JphwM add5lm4uqXBOuBIskX54cgO Qjj3P5QVKkaUR5HVAhtLsnR iBzaG93 Oyc+WIWoyJjei1ZmLuasx3g an5wszVh5IallFVNmssEldO azIZZ8h9NbNx3yZUHuoKE5i AY1sW7z DlHwPkV0BEgyA256UcRbhKR bOrwrL02pY5RbhAV+PHRyPj e7UVSekFonES9zD5NqIZHrb mctbGVm nAtcLI9lCSJbdnbeDXBpyZ6 bWSPlB2g3BxGnSzW7AGilF4 TbYIFzmmgwIs70jD6rCaQeL pO5BNlq U1SivcI3YSWwzXPfWKkwIBA 8B81td9P3CNFaEFLqDAH3iJ C4cZ6bbXqgyrnpjWShvByuc mVydGlj VBzsSOiiR140EYVnbSajQwK vZGluZyBEYXRlOiAgMTEvMT YvMjAyNDwvdGQ+TMWyKNY7t WxlPSAn oOFcAIdpXx7chFaibUljJG8 rUJMqabrzRFYgcC7ePLJkjK TnmGajGN9hCGJneassb014B iAxMHB0 OLZfoIGbY4HkpX5oTmLhPJE xENMwX7GyfTTlRPrxN725ND yxDfY2ZNQzggTwW1HeMHJwh WduOiB0 g1N8Tg0Sl2OfcpqpA4MoySO bPbQfVylfLMn6S0YuQurcfH I+GV23KIQyJJ07BPf7MRF1x WxlPSdi XQTmY2DwrG7bSgHiUQDyLQE kOyc+PHRhYmxlIHdpZHRoPS dnXLTvTiIsgUosHR0mHa9oC GVyLWNv bWcrmDIcCbZpo0apZOIoDRp yCO5pfIslM9BthBT7LXRwr3 r0Yy76L55aZ8MmtZM+PGNvb AJ9aDS2 zD8lBrGcSrQ5SFfqE313CiD ihYLwYazuf0vlp4hefGu8Yp J3CGRsjbQctJkrLGR8a3QsN j85R99q IHdpZHRoPSIxNSUiIHZhbGl eto1isZ5qAm6+LIZyiAY9pW W1tC5aXkKwIuW2KFndO030I nRvcCIv Aqgoe4rak8mrvUt2OzSuKJM qszKvySrzIHX0j1PrRj09N8 PvaFydg2AgScn1vk26tRCsv 3X0sUS6 D8KzUWBvyxnoqXOusYguPM5 sJXZqolafBMYtmG6dUFQwU4 u4WaAjZfD4VRpaV4SlwsN4E GJvbGQg TKCmfXYRtH1zyxbnr7treyf uDhJbJYDwVVd5JJt7OQLrxD bpXbMfHQO0IaQ4KSM9tFPde L5blRzq gwbliD1aVdl+GDY1pWScgKV LOJ4nAscauZO+TFHgALM0dF cdLWcgFFAjnH7sZHMgB0f7A iAwLjA1 LWvvT7KmbqK7EKDvmOWxJUQ izULBdS6ejxarn0ygizgnYn AnASDnZQt5JVk6YXVioLboF iBsZWZ0 IvG0MAI7xEWgsT2qoXojsyp mqM9cRit+ApzsjYycLCW9WH a7W7ClVla8KGBmdHxdZA6tb GFkZGlu Gn0lcEowbWefWX0dLYBzuhf qe189WvNnw7haIKZhcFFmIP hoBJF3P63yy7P2NEMiXYHbR JO4hJX0 vA8mxRmmvskfhAPhnRxdawD ejLkeRMqeKQpjW078TXLjfC erSlTmLMs4F2MeVah8QGEhk SepNE5j aFKkTVdwBm8ymVmvbNawAL5 rVZCnclklr338UbDsd2brWQ VyuONiIPqgFES3U28cl4A6D CMwMDAw KTK0tTU6sR0gbRnrlybjoVZ mdDsgdmVydGljYWwtYWxpZ2 74RDJpaIosArUcoId3L9AqZ yu1DTXs xOeqYA7uvBFtIElaNk5xoDt avIleYH2nDJJmalrxs541Jx Jae7jbSFYypNMzULhoATT9N 61bv7P9 OJKqCANdCGM2mLG9uC2isWp nbjogbGVmdDsgdmVydGljYW tlHNktF119LARmjHexZyKfu GllbnQg NZxlUNa3O4YhSzfsuAW+PC9 7TVKpCS72yVNdbSYep6fuwY z8VhAsHCWmIQO6zYlsJXakd 3JkZXIt U05zyYXej4J3KJJzwKmigTQ fErFcfPL1nC3kTXkurbhvd2 ifrhrrNblfk5dbyb95yL23N 29sIHdp ZHRoPSIzMCUiIHZhbGlnbj0 lsT9vRk0+OBHlwJG0aVE2cD 3kNTObLbQ9LGcoF103CsYex CIvPjxj r6aoc2bccZm7QeU8DSCbhdG bvGfcNZD5z2CrWo34L58jXB dpZHRoPSIyMCUiIHZhbGlnb u0uhW3q Ii8+JVYnbKW0sKB0eM6yIuH cUaS6CRklQ585HnQlzKBnLa aqZ65rC1HwyFG+GPZlOqt8T CBzdHls VW3imZKsMZxmRg6nFUH3KbJ wCbFqPZbqV3TnVUBmmtewdc ratOU0RKIeETHecM74Kq0ld DogMTBw tEXJuX6ajmzxn4pydmtfJiT zXXVmVMh4JUf3VLLkyDyhNd KsINL7QjY4WNC6sAJiqW9wh Glnbjog tZ7pB1GpIHTkxwufLe37jE4 tNmTwMyF7MZyaZen+TUlMTE VSLCBCUklUVEFOWSBQQUlHR TwvdGQ+ RXUdKDL6lPmdECkqYRUdwE5 nJQEsD6o2CmEyVlL4TXrlR1 IlYVIrxdgbOp16hX3qToGcI yL7WKrr F6FmhwD7AUWikSBhIMrrOSH 3B73sg0Z6SREhNOMkWSB9gW Z0jO1xmFbiebqioECwmCmvv mVydGlj EOnyRVgkT549KSYfsLrtAbX 0ZgYfBnH9AUD9P2JbAhk6MJ AfnNqpDI6trBZbLLbkKv0si WdodDog DF6oYPJisyamPEQexX4eGWJ keAXxaZwkOS3dTMEgpkyze6 07LaHcRNR6DRLizHEyF2Bua V6wTbEb JVOkJVRxT5TpfXCeEXnfT69 3GJtwAyA1MGUsaqFvS1KpMZ PsyJixDsO5g1D6Bm5qJYWRU WFyczwv dGQ+MRUyNYG8yYwoGNrwBJS skP4jEMOkY2v8WsDlJgI8YU fuA6EgDQJvsyulDh73nJ0fI iAwLjA1 YZrrQ7SjkyM7CJHlpZAgJRi eBCS0K43vo0M5DVGjXYBjCV G1mJI7uK4qaTqifixftHAcl DsgdmVy bDbiFYubSPcnZ681KSZghLv nPkZFTUFMRTwvdGQ+PHRkIH L9uTwoVLyeVCRdpR6hEQWrP 7w3YcLb TbW8FPpeK8PiZYHnttjyYo1 6zF0fVuQbNzX3PXmiO6Ghom X3FWQusYScQBfdGOT8Z51oe 7X3TEHv YJZoPWY9tSV3zY8ooNzluux gbGVmdDsgdmVydGljYWwtYW xvC340VZSkfXxrEu9DGS04Z K08J6Hm PjwvdGFibGU+PHRhYmxlIHd pZHRoPScxMDAlJyBzdHlsZT 6wMf5rVZSwNXOhbRkutQUcK dTgx4qi SVQqSWlmES7inLvgP8UipZX 3EFChe3v0Kx41R20jS8OjvQ A+KWRvvKX3hTX2zK6jRbAbP uU7AHkr Y589UdCtfWGaOagsq5qgo4q goYf4XnFgVYLjtaClcMwtYN X0t4BwEr20S84qENukRRUuO SIyMCUi DTJlkCvrdc5qnM8sGg0+PGN gfBE9rHX2nU5rDiAhDoD8TY nxY172EdZthRLlTzszM90nG 3JvdXA+ CFTaFhm4HKBviGxzZD5dlRR hVCiqWc2mULS2HiSnUkZpQD ckL8BjMIWwvgoopprxmPL7I DAuMDUw nT64Ik0jgMynZr8yNUPlBWG 5POYpfZQgY4ImnW3jTpEhXM AtPPCvN9IruQAhOJjgH637V GxlZnQ7 QFOttfEjX2PhYXSdaQgxWaG 5a3C6Mh5DpOuxsRTgIY5zHk IwFQc2S4JaHul7CSAtuZajT Y5hmVAy JPhzNz7nyZgurJuwSU0fAWJ drttlf820UbQac2yjGDHwvC WeOHwoSIQ3R24za0D4PADhU DAwMDA7 iNE1qU9krQthcrotaTMcaDm fwxYwpCefJDfdYOjoO507HO FscUvxWxNZRdp4H6SxObo1X CBzdHls BQ6bgDIcJUpuRg1bkRslvGc wRR1eDMXjkbrvg611WoSul3 ecOUWqcYMvOIurVTG6L74ie 3F1TFLd MKKoUQZ4bRE8xT0lgFxsdgo gbGVmdDsgdmVydGljYWwtYW osD116SNSnkHagIp9VGrr9Q 9RaByx6 PDXoyFglOJ3xiWQeYVugVg6 cvOfehUiyOT7bYEQvcprnl5 21UfGvm8trAFXqvVZxJFfxZ QJ9L12u k1I0XGPhYGZrTDD5kCT6oY1 hbGlnbjogbGVmdDsgdmVydG lcOEjjQEjbO632IUUlnYsaS lBheWVy OjwvdGQ+XL44kl85H2SoPyb fXnm7STRlPFC2iTL5kY6sKY FsZGxsv4F2uEY6N4YzgnFom s0na5xb YXB (more content not included)... Normal [facility] ED Clinical Summaryon 2023 ED Clinical Summary [facility] ? Urgent Care [address] [place] [address] Clinical Summary PERSON INFORMATION Name: TORREY GAYLE Age: 33 Years Sex: FEMALE : 1990 MRN: Acct#: Visit Reason: Medical screening exam; [facility] F/U - LEFT ARM INJURY Arrival: 04/25/2024 16:23:07 Discharge: 04/25/2024 17:25:00 LOS: 000 01:02 Check In: 04/25/2024 16:23:07 Checkout: 04/25/2024 17:25:00 Address: [address] [place] [address] PCP: Provider, None PROVIDER INFORMATION Provider Role [...] verbalizes understanding of instructions given Comment: Normal [facility] ED Patient Summaryon 024 ED Patient Summary [facility] ? Urgent Care [address] [place] [address] PATIENT DISCHARGE INSTRUCTIONS Patient Information Name: TORREY GAYLE Age: 33 Years Date of : 1990 Reason For Visit: Medical screening exam; [facility] F[facility] - [facility] INJURY Arrival Time: 04/25/2024 16:23:07 Primary Care Physician: Provider, Nicolette Attending Physician: KRANTHI ACHARYA Comment: Patient Education With: Address: When: Return to this practice Comments: as scheduled in 3 months Medication Information: The exam and treatment you received today in the [facility] Emergency Department were for an urgent problem and are not intended as complete care. It is important for you to follow up with a doctor, nurse practitioner, or physician?s golf course assistant for ongoing care. If your symptoms [...] so we can reach you if necessary. [facility] Emergency Department has provided you with a complete list of medications post discharge. Please inform your valet attendant/provider of your visit and for further instruction [...] Left wrist sprain (S63.502A) Medical screening exam ([id number]) Other synovitis and tenosynovitis, left hand (M65.842) [...] legal documents Reason for Visit: Medical exam- [facility] -to establish with new POR, initial [...] Whooping Cou (more content not included)... Normal [facility] Urgent Care Note- Provideron 04-25-2024 Urgent Care [...] FOLLOW-UP Date of injury: 04/07/2019 Claim #: [id number] Employer: [place] Mechanism of Injury: Turning a patient and [...] record is no longer practicing at the [facility]. 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 She was referred to Dr. Nicole with persisting symptoms. She had injections which were not particularly helpful and then proceeded to have 2 surgeries. She has now been seeing pain management for the past 2 years in [place]. She has tried PT, creams, injections, medications including OTC Motrin/Tylenol, Lyrica, Neurontin, muscle relaxers and Mobic/Celebrex all without good relief and so she takes no medications for this. She states her most recent testing was a bone scan done on 04/03 in [place] and it was reported as normal. 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 With this she reports elbow pain seems [...] wheeze. EXT (more content not included)... Normal [facility] Urgent Care [place] 024 Urgent Care Record [facility] ? 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 It is important for you to follow up with a doctor, nurse practitioner, or physician?s golf course assistant for ongoing care. If your symptoms [...] so we can reach you if necessary. [facility] has provided you with a complete list of medications post discharge. Please inform your valet attendant/provider of your visit and for further instruction [...] for Disease Control and Prevention February 2014 [facility] Alanine aminotransferase [En zymatic activity/volume] in Serum or PlasmaOrdered By: Oh Aparicio on 10-16-2023 ALT [Catalytic activity/Vol] 20 U/L [facility] Albumin [Mass/volume] in Ser um or Plasma by Bromocresol green (BCG) dye binding methoOrdered By: Oh Aparicio on 10-16-2023 Albumin BCG dye [Mass/Vol] 4.3 g/dL 3.5-5.7 [facility] Alkaline phosphatase [Enzyma tic activity/volume] in Serum or PlasmaOrdered By: Oh Aparicio on 10-16-2023 ALP [Catalytic activity/Vol] 54 U/L 34-104 [facility] Aspartate aminotransferase [ Enzymatic activity/volume] in Serum or PlasmaOrdered By: Oh Aparicio on 10-16-2023 AST [Catalytic activity/Vol] 17 U/L 13-39 [facility] Basic Metabolic Panelon 09-18 Anion gap [Moles/Vol] 12.0 mmol/L Normal 6.0-15.0 e [facility] Comment on above: Order Comment: helga r Performed By: #### B MP, LIPASE, SCAN CBC, HEPATIC #### [facility] [address] Calcium [Mass/Vol] 9.4 mg/dL Normal 8.6-10.3 [facility] Comment on above: Order Comment: helga r Performed By: #### B MP, LIPASE, SCAN CBC, HEPATIC #### [facility] [address] [place] [address] [place] Chloride [Moles/Vol] 103 mmol/L Normal 98-107 [facility] Comment on above: Order Comment: helga r Performed By: #### B MP, LIPASE, SCAN CBC, HEPATIC #### [facility] [address] [place] [id number] [place] CO2 [Moles/Vol] 30.1 mmol/L Normal 21.0-31.0 [facility] Comment on above: Order Comment: helga r Performed By: #### B MP, LIPASE, SCAN CBC, HEPATIC #### [facility] [address] [place] [id number] [place] Creatinine [Mass/Vol] 0.67 mg/dL Normal 0.60-1.20 [facility] Comment on above: Order Comment: helga r Performed By: #### B MP, LIPASE, SCAN CBC, HEPATIC #### [facility] [address] [place] [id number] [place] Creatinine Clr Calc Pharmacy 110.48 Normal [facility] Comment on above: Order Comment: helga r Performed By: #### B MP, LIPASE, SCAN CBC, HEPATIC #### [facility] [address] GFR/1.73 sq M.predicted MDRD (S/P/Bld) [Vol rate/Area] mL/min/{1.73_m2} Normal [facility] Comment on above: Order Comment: helga r Performed By: #### B MP, LIPASE, SCAN CBC, HEPATIC #### [facility] [address] Glucose [Mass/Vol] 75 mg/dL Normal 70-100 [facility] Comment on above: Order Comment: helga r Result Comment: [place] Glucose Reference Range is dependent on time and content of last meal. Glucose of more than 200 mg/dL in a nonstressed, ambulatory subject supports the diagnosis of Diabetes Mellitus. ADA recommended reference range Performed By: #### B MP, LIPASE, SCAN CBC, HEPATIC #### [facility] [address] Potassium [Moles/Vol] 4.1 mmol/L Normal 3.5-5.1 [facility] Comment on above: Order Comment: helga r Performed By: #### B MP, LIPASE, SCAN CBC, HEPATIC #### [facility] [address] [place] [id number] [facility] Sodium [Moles/Vol] 141 mmol/L Normal 136-145 [facility] Comment on above: Order Comment: helga r Performed By: #### B MP, LIPASE, SCAN CBC, HEPATIC #### [facility] [address] [place] [id number] [facility] Urea nitrogen [Mass/Vol] 8 mg/dL Normal 7-25 [facility] Comment on above: Order Comment: helga r Performed By: #### B MP, LIPASE, SCAN CBC, HEPATIC #### [facility] [address] [place] [id number] [facility] Basophils Auto (Bld) [#/Vol] Ordered By: Oh Aparicio on 10-16-2023 Basophils (Bld) [#/Vol] 0.0 10*3/uL 0.0-0.2 [facility] Basophils/100 WBC Auto (Bld) Ordered By: Oh Aparicio on 10-16-2023 Basophils/100 WBC (Bld) 0.3 % . [facility] Bilirubin Test strip Ql (U)O rdered By: Oh Aparicio on 10-16-2023 Bilirubin Ql (U) Negative Negative [facility] Bilirubin.direct [Mass/volum e] in Serum or PlasmaOrdered By: Oh Aparicio on 10-16-2023 Bilirubin.direct [Mass/Vol] 0.10 mg/dL 0.03-0.18 [facility] Bilirubin.total [Mass/volume ] in Serum or PlasmaOrdered By: Oh Aparicio on 10-16-2023 Bilirubin [Mass/Vol] 0.4 mg/dL 0.3-1.[address] [facility] [address] abdomen pelvis w conon CT abdomen pelvis w con [facility] [place] [address] CT Scan Report Signed Patient: Torrey Antony MR#: [id number] : 1990 Acct:[id number] Age/Sex: 32 / F ADM Date: 10/16/23 Loc: ER Room: Type: [facility] ER Attending Dr: Copies to: [...] Anastasia Nunez M.D.10/16/2023 2:09 PM Dictation Location: [place] [address] Transcribed By: [facility] 10/16/23 1409 Dictated By: Anastasia Nunez MD 10/16/23 1355 Signed By: 10/16/23 1409 Normal [facility] Calcium [Mass/volume] in Ser um or PlasmaOrdered By: Oh Aparicio on 10-16-2023 Calcium [Mass/Vol] 9.4 mg/dL 8.6-10.3 [facility] Carbon dioxide, total [Moles /volume] in Serum or PlasmaOrdered By: Oh Aparicio on 10-16-2023 CO2 [Moles/Vol] 30.1 mmol/L 21.0-31.[address] [facility] Chloride [Moles/volume] in S kusum or PlasmaOrdered By: Oh Aparicio on 10-16-2023 Chloride [Moles/Vol] 103 mmol/L 98-107 [facility] Color Auto (U)Ordered By: Lele Aparicio on 10-16-2023 Color (U) Yellow Yellow [facility] Creatinine [Mass/volume] in Serum or PlasmaOrdered By: Oh Aparicio on 10-16-2023 Creatinine [Mass/Vol] 0.67 mg/dL 0.60-1.20 [facility] Eosinophils Auto (Bld) [#/Vo l]Ordered By: Oh Aparicio on 10-16-2023 Eosinophils (Bld) [#/Vol] 0.2 10*3/uL 0.0-0.45 [facility] Eosinophils/100 WBC Auto (Bl d)Ordered By: Oh Aparicio on 10-16-2023 Eosinophils/100 WBC (Bld) 2.5 % . [facility] Erythrocyte distribution wid th Auto (RBC) [Ratio]Ordered By: Oh Aparicio on 10-16-2023 Erythrocyte distribution width (RBC) [Ratio] 13.7 % 11.9-15.3 [facility] Globulin Calc (S) [Mass/Vol] Ordered By: Oh Aparciio on 10-16-2023 Globulin (S) [Mass/Vol] 2.3 g/dL [facility] Glucose [Mass/volume] in Ser um or PlasmaOrdered By: Oh Aparicio on 10-16-2023 Glucose [Mass/Vol] 75 mg/dL 70-100 [facility] Comment on above: ADA recommended refe rence rangeRandom Glucose Reference Range is dependent on time and content of last meal. Glucose of more than 200 mg/dL in a nonstressed, ambulatory subject supports the diagnosis of Diabetes Mellitus. HCG ( test) IA.rapi d Ql (U)Ordered By: Oh Aparicio on 10-16-2023 HCG ( test) Ql (U) Negative [facility] HCG,Urineon 10-16-2023 Beta HCG ( test) Ql (U) Negative Normal [facility] Comment on above: Order Comment: Name Collection Type:: Voided Result Comment: PERF ORMED BY: [place] [address] PATHOLOGIST NEUROLOGY SPECIALIST TAZ DALY M.D. Performed By: #### U HCG, UA #### [address] Hematocrit Auto (Bld) [Volum e fraction]Ordered By: Oh Aparicio on 10-16-2023 Hematocrit (Bld) [Volume fraction] 40.4 % 34.0-46.4 [facility] Hemoglobin [Mass/volume] in BloodOrdered By: Oh Aparicio on 10-16-2023 Hemoglobin (Bld) [Mass/Vol] 13.7 g/dL 11.8-15.4 [facility] Hepatic Panelon 10-16-2023 Albumin [Mass/Vol] 4.3 g/dL Normal 3.5-5.7 [facility] Comment on above: Order Comment: helga r Performed By: #### B MP, LIPASE, SCAN CBC, HEPATIC #### [facility] [address] Albumin/Globulin [Mass ratio] 1.9 {ratio} Normal [facility] Comment on above: Order Comment: helga r Performed By: #### B MP, LIPASE, SCAN CBC, HEPATIC #### [facility] [address] ALP [Catalytic activity/Vol] 54 U/L Normal 34-104 [facility] Comment on above: Order Comment: helga r Performed By: #### B MP, LIPASE, SCAN CBC, HEPATIC #### [facility] [address] [place] [address] [place] ALT [Catalytic activity/Vol] 20 U/L Normal 7-52 [facility] Comment on above: Order Comment: helga r Performed By: #### B MP, LIPASE, SCAN CBC, HEPATIC #### [facility] [address] [place], [place] [id number] [place] AST [Catalytic activity/Vol] 17 U/L Normal 13-39 [facility] Comment on above: Order Comment: helga r Performed By: #### B MP, LIPASE, SCAN CBC, HEPATIC #### [facility] [address] [place] [id number] [place] Bilirubin [Mass/Vol] 0.4 mg/dL Normal 0.3-1.0 [facility] Comment on above: Order Comment: helga r Performed By: #### B MP, LIPASE, SCAN CBC, HEPATIC #### [facility] [address] [place] [id number] [place] Bilirubin,Indirect 0.3 mg/dL Normal [facility] Comment on above: Order Comment: helga r Performed By: #### B MP, LIPASE, SCAN CBC, HEPATIC #### [address] Bilirubin.indirect [Mass/Vol] 0.10 mg/dL Normal 0.03-0.18 [facility] Comment on above: Order Comment: helga r Performed By: #### B MP, LIPASE, SCAN CBC, HEPATIC #### [address] Globulin (S) [Mass/Vol] 2.3 g/dL Normal [facility] Comment on above: Order Comment: helga r Performed By: #### B MP, LIPASE, SCAN CBC, HEPATIC #### [address] Protein [Mass/Vol] 6.6 g/dL Normal 6.4-8.9 [facility] Comment on above: Order Comment: helga r Performed By: #### B MP, LIPASE, SCAN CBC, HEPATIC #### [address] Ketones Auto test strip (U) [Mass/Vol]Ordered By: Oh Aparicio on 10-16-2023 Ketones (U) [Mass/Vol] Negative Negative [facility] Leukocytes [#/volume] correc milla for nucleated erythrocytes in Blood by Automated counOrdered By: Oh Aparicio on 10-16-2023 WBC corrected for nucl RBC Auto (Bld) [#/Vol] 6.3 10*3/uL 3.8-11.6 [facility] Lipaseon 10-16-2023 Lipase [Catalytic activity/Vol] 7.0 U/L Low 11.0-82.0 [facility] Comment on above: Order Comment: helga r Result Comment: PERF ORMED BY: [place] [address] PATHOLOGIST NEUROLOGY SPECIALIST TAZ DALY M.D. Performed By: #### B MP, LIPASE, SCAN CBC, HEPATIC #### [address] Lipase [Enzymatic activity/v olume] in Serum or PlasmaOrdered By: Oh Aparicio on 10-16-2023 Lipase [Catalytic activity/Vol] 7.0 U/L 11.0-82.0 [facility] Lymphocytes Auto (Bld) [#/Vo l]Ordered By: Oh Aparicio on 10-16-2023 Lymphocytes (Bld) [#/Vol] 2.2 10*3/uL 1.00-4.8 [facility] Lymphocytes/100 WBC Auto (Bl d)Ordered By: Oh Aparicio on 10-16-2023 Lymphocytes/100 WBC (Bld) 34.2 % . [facility] MCH Auto (RBC) [Entitic mass ]Ordered By: Oh Aparicio on 10-16-2023 MCH (RBC) [Entitic mass] 31.0 pg 24.7-34.3 [facility] System MCHC Auto (RBC) [Mass/Vol]Or dered By: Oh Aparicio on 10-16-2023 MCHC (RBC) [Mass/Vol] 33.9 g/dL 32.0-35.0 [facility] MCV Auto (RBC) [Entitic vol] Ordered By: Oh Aparicio on 10-16-2023 MCV (RBC) [Entitic vol] 91.5 fL 80-100 [facility] Monocyte distribution width [Entitic volume] in Blood by AutomatedOrdered By: Oh Aparicio on 10-16-2023 Monocyte distribution width Auto (Bld) [Entitic vol] 17.06 % 0.00-20.00 [facility] Monocytes Auto (Bld) [#/Vol] Ordered By: Oh Aparicio on 10-16-2023 Monocytes (Bld) [#/Vol] 0.4 10*3/uL 0.0-0.8 [facility] Monocytes/100 WBC Auto (Bld) Ordered By: Oh Aparicio on 10-16-2023 Monocytes/100 WBC (Bld) 5.9 % . [facility] Neutrophils Auto (Bld) [#/Vo l]Ordered By: Oh Aparicio on 10-16-2023 Neutrophils (Bld) [#/Vol] 3.6 10*3/uL 1.8-7.7 [facility] Neutrophils/100 WBC Auto (Bl d)Ordered By: Oh Aparicio on 10-16-2023 Neutrophils/100 WBC (Bld) 57.1 % . [facility] Nitrite Test strip Ql (U)Ord ered By: Oh Aparicio on 10-16-2023 Nitrite Ql (U) Negative Negative [facility] No Panel InformationOrdered By: Oh Aparicio on 10-16-2023 Estimated GFR (CKD-EPI) > 60.0 mL/Min [facility] Creatinine Clearance (Chem 110.48 [facility] Nucleated erythrocytes [Pres ence] in Blood by Automated countOrdered By: Oh Aparicio on 10-16-2023 Nucleated RBC Auto Ql (Bld) 0.2 /100{WBC} 0-0.5 [facility] Platelet adequacy [Presence] in Blood by Light microscopyOrdered By: Oh Aparicio on 10-16-2023 Platelets LM Ql (Bld) Normal Normal [facility] Platelet mean volume Auto (B ld) [Entitic vol]Ordered By: Oh Aparicio on 10-16-2023 Platelet mean volume (Bld) [Entitic vol] 11.6 fL 6.3-10.7 [facility] Platelet morphology finding [Identifier] in BloodOrdered By: Oh Aparicio on 10-16-2023 Platelet morphology finding Nom (Bld) N/A [facility] Platelets Auto (Bld) [#/Vol] Ordered By: Oh Aparicio on 10-16-2023 Platelets (Bld) [#/Vol] 174 10*3/uL 150-450 [facility] Platelets Large [Presence] i n Blood by Light microscopyOrdered By: Oh Aparicio on 10-16-2023 Platelets Large LM Ql (Bld) Slight [facility] Potassium [Moles/volume] in Serum or PlasmaOrdered By: Oh Aparicio on 10-16-2023 Potassium [Moles/Vol] 4.1 mmol/L 3.5-5.1 [facility] Protein Auto test strip (U) [Mass/Vol]Ordered By: Oh Aparicio on 10-16-2023 Protein (U) [Mass/Vol] Negative Negative [facility] Protein [Mass/volume] in Ser um or PlasmaOrdered By: Oh Aparicio on 10-16-2023 Protein [Mass/Vol] 6.6 g/dL 6.4-8.9 [facility] RBC Auto (Bld) [#/Vol]Ordere d By: Oh Aparicio on 10-16-2023 RBC (Bld) [#/Vol] 4.42 10*6/uL 3.60-5.00 [facility] RBC morphologyOrdered By: Lele Aparicio on 10-16-2023 RBC morphology finding Nom (Bld) Normal Normal [facility] Scan and CBCon 10-16-2023 Basophils (Bld) [#/Vol] 0.0 10*3/uL Normal 0.0-0.2 [facility] Comment on above: Order Comment: helga r Performed By: #### B MP, LIPASE, SCAN CBC, HEPATIC #### [facility] [address] Basophils/100 WBC (Bld) 0.3 % Normal . [facility] Comment on above: Order Comment: helga r Performed By: #### B MP, LIPASE, SCAN CBC, HEPATIC #### [facility] [address] Eosinophils (Bld) [#/Vol] 0.2 10*3/uL Normal 0.0-0.45 [facility] Comment on above: Order Comment: helga r Performed By: #### B MP, LIPASE, SCAN CBC, HEPATIC #### [facility] [address] Eosinophils/100 WBC (Bld) 2.5 % Normal . [facility] Comment on above: Order Comment: helga r Performed By: #### B MP, LIPASE, SCAN CBC, HEPATIC #### [facility] [address] Erythrocyte distribution width (RBC) [Ratio] 13.7 % Normal 11.9-15.3 [facility] Comment on above: Order Comment: helga r Performed By: #### B MP, LIPASE, SCAN CBC, HEPATIC #### [facility] [address] Hematocrit (Bld) [Volume fraction] 40.4 % Normal 34.0-46.4 [facility] Comment on above: Order Comment: helga r Performed By: #### B MP, LIPASE, SCAN CBC, HEPATIC #### [address] Hemoglobin (Bld) [Mass/Vol] 13.7 g/dL Normal 11.8-15.4 [facility] Comment on above: Order Comment: helga r Performed By: #### B MP, LIPASE, SCAN CBC, HEPATIC #### [address] Large Platelets Slight Normal [facility] Comment on above: Order Comment: helga r Result Comment: PERF ORMED BY: [place] [address] PATHOLOGIST NEUROLOGY SPECIALIST TAZ DALY M.D. Performed By: #### B MP, LIPASE, SCAN CBC, HEPATIC #### [address] Lymphocytes (Bld) [#/Vol] 2.2 10*3/uL Normal 1.00-4.8 [facility] Comment on above: Order Comment: helga r Performed By: #### B MP, LIPASE, SCAN CBC, HEPATIC #### [address] Lymphocytes/100 WBC (Bld) 34.2 % Normal . [facility] Comment on above: Order Comment: helga r Performed By: #### B MP, LIPASE, SCAN CBC, HEPATIC #### [address] MCH (RBC) [Entitic mass] 31.0 pg Normal 24.7-34.3 [facility] Comment on above: Order Comment: helga r Performed By: #### B MP, LIPASE, SCAN CBC, HEPATIC #### [address] MCV (RBC) [Entitic vol] 91.5 fL Normal 80-100 [facility] Comment on above: Order Comment: helga r Performed By: #### B MP, LIPASE, SCAN CBC, HEPATIC #### [address] Mean Corpuscular HGB Conc 33.9 g/dL Normal 32.0-35.0 [facility] Comment on above: Order Comment: helga r Performed By: #### B MP, LIPASE, SCAN CBC, HEPATIC #### [address] Monocytes (Bld) [#/Vol] 0.4 10*3/uL Normal 0.0-0.8 [facility] Comment on above: Order Comment: helga r Performed By: #### B MP, LIPASE, SCAN CBC, HEPATIC #### [address] Monocytes/100 WBC (Bld) 17.06 % Normal 0.00-20.00 [facility] Comment on above: Order Comment: helga r Performed By: #### B MP, LIPASE, SCAN CBC, HEPATIC #### [address] Monocytes/100 WBC (Bld) 5.9 % Normal . [facility] Comment on above: Order Comment: helga r Performed By: #### B MP, LIPASE, SCAN CBC, HEPATIC #### [address] Neutrophils (Bld) [#/Vol] 3.6 10*3/uL Normal 1.8-7.7 [facility] Comment on above: Order Comment: helga r Performed By: #### B MP, LIPASE, SCAN CBC, HEPATIC #### [address] Neutrophils/100 WBC (Bld) 57.1 % Normal . [facility] Comment on above: Order Comment: helga r Performed By: #### B MP, LIPASE, SCAN CBC, HEPATIC #### [address] NRBC% 0.2 /100{WBC} Normal 0-0.5 [facility] Comment on above: Order Comment: helga r Performed By: #### B MP, LIPASE, SCAN CBC, HEPATIC #### [facility] [address] Platelet Estimate Normal Normal Normal [facility] Comment on above: Order Comment: helga r Performed By: #### B MP, LIPASE, SCAN CBC, HEPATIC #### [facility] [address] Platelet mean volume (Bld) [Entitic vol] 11.6 fL High 6.3-10.7 [facility] Comment on above: Order Comment: helga r Performed By: #### B MP, LIPASE, SCAN CBC, HEPATIC #### [facility] [address] Platelets (Bld) [#/Vol] 174 10*3/uL Normal 150-450 [facility] Comment on above: Order Comment: helga r Performed By: #### B MP, LIPASE, SCAN CBC, HEPATIC #### [facility] [address] RBC (Bld) [#/Vol] 4.42 10*6/uL Normal 3.60-5.00 [facility] Comment on above: Order Comment: helga r Performed By: #### B MP, LIPASE, SCAN CBC, HEPATIC #### [facility] [address] RBC morphology finding Nom (Bld) Normal Normal Normal [facility] Comment on above: Order Comment: helga r Performed By: #### B MP, LIPASE, SCAN CBC, HEPATIC #### [facility] [address] WBC (Bld) [#/Vol] 6.3 10*3/uL Normal 3.8-11.6 [facility] Comment on above: Order Comment: helga r Performed By: #### B MP, LIPASE, SCAN CBC, HEPATIC #### [facility] [address] Serum or plasma albumin/glob ulin mass ratioOrdered By: Oh Aparicio on 10-16-2023 Albumin/Globulin [Mass ratio] 1.9 {ratio} [facility] Serum or plasma anion gap de terminationOrdered By: Oh Aparicio on 10-16-2023 Anion gap [Moles/Vol] 12.0 mmol/L 6.0-15.0 [facility] Serum or plasma non-glucuron idated bilirubin measurement (mass/volume)Ordered By: Oh Aparicio on 10-16-2023 Bilirubin.indirect [Mass/Vol] 0.3 mg/dL [facility] Sodium [Moles/volume] in Ser um or PlasmaOrdered By: Oh Aparicio on 10-16-2023 Sodium [Moles/Vol] 141 mmol/L 136-[facility] Specific gravity Auto test s trip (U) [Rel density]Ordered By: Oh Aparicio on 10-16-2023 Specific gravity (U) [Rel density] 1.006 1.001-1.030 [facility] US gall bladderon 10-16-2023 US gall bladder [facility] [address] Ultrasound Report Signed Patient: Torrey Antony MR#: [id number] : 1990 Acct:[id number] Age/Sex: 32 / F ADM Date: 10/16/23 Loc: ER Room: Type: [facility] ER Attending Dr: Ordering Provider: [...] Anastasia Nunez M.D.10/16/2023 1:27 PM Dictation Location: [place] [address] Tech: Katharina Melvin Transcribed By: DIANA 10/16/23 1327 Dictated By: Anastasia Nunez MD 10/16/23 1325 Signed By: 10/16/23 1327 Normal [facility] Urea nitrogen [Mass/volume] in Serum or PlasmaOrdered By: Oh Aparicio on 10-16-2023 Urea nitrogen [Mass/Vol] 8 mg/dL 01-09 [facility] Urinalysison 10-16-2023 Appearance (U) Clear Normal Clear [facility] Comment on above: Order Comment: Name Collection Type:: Voided Performed By: #### U HCG, UA #### [place] [address] [place] Bilirubin,Urine Negative Normal Negative [facility] Comment on above: Order Comment: Name Collection Type:: Voided Performed By: #### U HCG, UA #### [address] Color (U) Yellow Normal Yellow [facility] Comment on above: Order Comment: Name Collection Type:: Voided Performed By: #### U HCG, UA #### [place] [address] [place] Glucose Ql (U) Normal Normal Normal [facility] Comment on above: Order Comment: Name Collection Type:: Voided Performed By: #### U HCG, UA #### [place] [address] [place] Ketones Ql (U) Negative Normal Negative [facility] Comment on above: Order Comment: Name Collection Type:: Voided Performed By: #### U HCG, UA #### [place] [id number] [place] Leukocyte esterase Test strip Ql (U) Negative Normal Negative [facility] Comment on above: Order Comment: Name Collection Type:: Voided Performed By: #### U HCG, UA #### [place] [address] [place] Nitrite,Urine Negative Normal Negative [facility] Comment on above: Order Comment: Name Collection Type:: Voided Performed By: #### U HCG, UA #### [place] [id number] [place] Occult Blood,Urine Negative Normal Negative [facility] Comment on above: Order Comment: Name Collection Type:: Voided Performed By: #### U HCG, UA #### [address] pH (U) 7.0 [pH] Normal 5.0-9.0 [facility] Comment on above: Order Comment: Name Collection Type:: Voided Performed By: #### U HCG, UA #### [address] Protein,Urine Negative Normal Negative [facility] Comment on above: Order Comment: Name Collection Type:: Voided Performed By: #### U HCG, UA #### [address] Specificy [place],Urine 1.006 Normal 1.001-1.030 [facility] Comment on above: Order Comment: Name Collection Type:: Voided Performed By: #### U HCG, UA #### [address] Urobilinogen,Urine Normal Normal Normal [facility] Comment on above: Order Comment: Name Collection Type:: Voided Performed By: #### U HCG, UA #### [address] Urine clarity by refractomet ry automatedOrdered By: Oh Aparicio on 10-16-2023 Clarity Refractometry automated (U) Clear Clear [facility] Urine glucose measurement by automated test strip (mass/volume)Ordered By: Oh Aparicio on 10-16-2023 Glucose Auto test strip (U) [Mass/Vol] Normal mg/dL Normal [facility] Urine hemoglobin detection b y automated test stripOrdered By: Oh Aparicio on 10-16-2023 Hemoglobin Auto test strip Ql (U) Negative Negative [facility] Urine leukocyte esterase det ection by automated test stripOrdered By: Oh Aparicio on 10-16-2023 Leukocyte esterase Auto test strip Ql (U) Negative Negative [facility] Urobilinogen Auto test strip (U) [Mass/Vol]Ordered By: Oh Aparicio on 10-16-2023 Urobilinogen (U) [Mass/Vol] Normal mg/dL Normal [facility] WBC Auto (Bld) [#/Vol]Ordere d By: Oh Aparicio on 10-16-2023 WBC (Bld) [#/Vol] 6.3 10*3/uL 3.8-11.6 [facility] pH Auto test strip (U)Ordere d By: Oh Aparicio on 10-16-2023 pH (U) 7.0 [pH] 5.0-9.0 [facility] Office Visiton 11-30-2022 Follow-up visit [id number] Torrey Antony 1990 F Date Provider Department Center 11/30/2022 [facility] Family History Problem Relation Age of Onset No Known Problems Mother Hypertension Father Hyperlipidemia Father Family Status - Relation Status Age at Mother Alive Father Alive Level of Service:29698 LA OFFICE/OUTPATIENT ESTABLISHED LOW [facility] 20-29 MIN Reason for Visit and Comments: Pain [136] Normal [facility] XR CHEST 2 Von 11-09-2022 XR CHEST [...] by: HAN ARNOLD Date: 2022-11-09 17:20 Normal [facility] XR CHEST 1 Von 11-02-2022 XR CHEST [...] by: MAURO NUNEZ Date: 2022-11-02 20:46 Normal [facility] THYROID ANTIBODIESon 023 Thyroglobulin Antibody <1.0 Normal 0.0-0.9 [facility] Comment on above: Result Comment: Thyr oglobulin Antibody measured by [employer] Performed By: #### T HYRABS #### [facility] [address] [place] [address] Dr. Rigo Sands Thyroid Peroxidase (TPO) Ab <9 Normal 0-34 [facility] Comment on above: Performed By: #### T HYRABS #### [facility] [address] [place] [address] Dr. Rigo Sands US THYROIDon 07-10-2022 US [...] by: MAURO POSADAS Date: 2022-07-10 06:33 Normal [facility] FREE T3on 07-07-2022 FREE T3 2.99 pg/mlL Normal 2.18-3.98 [facility] Comment on above: Performed By: #### T SH, FT3 #### [facility] [address] [place] [address] Dr. Rigo Sands FREE T4on 07-07-2022 Free T4 [Mass/Vol] 0.64 ng/dL Critically low 0.76-1.46 [facility] Comment on above: Performed By: #### F T4 #### [facility] [address] [place] [address] Dr. Rigo Sands TSHon 07-07-2022 TSH 0.764 uIU/mL Normal 0.358-3.740 [facility] Comment on above: Performed By: #### T SH, FT3 #### [facility] [address] [place] [address] Dr. Rigo Sands Covid-19 PCR (CVDTB)on SARS-CoV-2 (COVID-19) RNA OK+probe Ql (Unsp spec) Not detected Normal NOT DETECTED [facility] Comment on above: Result Comment: When [...] for this test is supported by the [place] of Health and Human Service's declaration that [...] used). Performed By: #### C VDTBH #### [facility] [address] [place] [address] Dr. Rigo Sands CBC AUTO DIFFon 04-04-2022 BASO # 0.0 103/ul Normal 0.0-0.1 [facility] Comment on above: Performed By: #### C BC ####[facility] [address] [place], [place] [address]DrRobert Sands Basophils/100 WBC (Bld) 0.3 % Normal 0.2-2.0 [facility] Comment on above: Performed By: #### C BC ####[facility] [address] [place] [address]DrRobert Sands EO # 0.1 103/ul Normal 0.0-0.7 [facility] Comment on above: Performed By: #### C BC ####[facility] [address] [place] [address]DrRobert Sands Eosinophils/100 WBC (Bld) 0.8 % Critically low 0.9-7.0 [facility] Comment on above: Performed By: #### C BC ####[facility] [address] [place], [place] [address]Dr. Rigo Sands Erythrocyte distribution width (RBC) [Ratio] 13.2 % Normal 11.0-15.0 [facility] Comment on above: Performed By: #### C BC ####[facility] [address] [place], [place] [address]Dr. Rigo Sands Hematocrit (Bld) [Volume fraction] 42.0 % Normal 36.0-48.0 [facility] Comment on above: Performed By: #### C BC ####[facility] [address] [place], [place] [address]Dr. Rigo Sands Hemoglobin (Bld) [Mass/Vol] 13.8 g/dL Normal 12.0-16.0 [facility] Comment on above: Performed By: #### C BC ####[facility] [address] [place], [place] [address]Dr. Rigo Sands IG # 0.04 10e3/ul Critically high 0.00-0.03 [facility] Comment on above: Performed By: #### C BC ####[facility] [address] [place], [place] [address]Dr. Rigo Sands IG % 0.5 % Normal 0.0-0.5 [facility] Comment on above: Performed By: #### C BC ####[facility] [address] [place], [place] [address]Dr. Rigo Sands LYMPH # 1.9 103/ul Normal 1.2-3.8 [facility] Comment on above: Performed By: #### C BC ####[facility] [address] [place], [place] [address]Dr. Rigo Sands Lymphocytes/100 WBC (Bld) 25.5 % Normal 20.5-60.0 [facility] Comment on above: Performed By: #### C BC ####[facility] [address] [place], [place] [address]Dr. Rigo Sands MANUAL DIFF REQ NO Normal [facility] Comment on above: Performed By: #### C BC ####[facility] [address] [place] [address]DrRobert Sands MCH (RBC) [Entitic mass] 30.4 pg Normal 26.7-34.0 [facility] Comment on above: Performed By: #### C BC ####[facility] [address] [place] [address]DrRobert Sands MCHC (RBC) [Mass/Vol] 32.9 g/dL Normal 29.9-35.2 [facility] Comment on above: Performed By: #### C BC ####[facility] [address] [place], [place] [address]DrRobert Sands MCV (RBC) [Entitic vol] 92.5 fL Normal 81.0-99.0 [facility] Comment on above: Performed By: #### C BC ####[facility] [address] [place], [place] [address]DrRobert Sands MONO # 0.5 103/ul Normal 0.3-0.8 [facility] Comment on above: Performed By: #### C BC ####[facility] [address] [place], [place] [address]DrRobert Sands Monocytes/100 WBC (Bld) 6.0 % Normal 1.7-12.0 [facility] Comment on above: Performed By: #### C BC ####[facility] [address] [place], [place] [address]DrRobert Sands NEUT # 5.0 103/ul Normal 1.4-6.5 [facility] Comment on above: Performed By: #### C BC ####[facility] [address] [place], [place] [address]DrRobert Sands Neutrophils/100 WBC (Bld) 66.9 % Normal 43.0-75.0 [facility] Comment on above: Performed By: #### C BC ####[facility] [address] [place], [place] [address]DrRobert Sands Platelet mean volume (Bld) [Entitic vol] 12.7 fL Normal 9.5-13.5 [facility] Comment on above: Performed By: #### C BC ####[facility] [address] [place] [address]Dr. Rigo Sands PLT 196 103/ul Normal 150-450 [facility] Comment on above: Performed By: #### C BC ####[facility] [address] [place], [place] [address]Dr. Rigo Sands RBC 4.54 106/ul Normal 4.20-5.40 [facility] Comment on above: Performed By: #### C BC ####[facility] [address] [place], [place] [address]Dr. Rigo Sands WBC 7.5 103/ul Normal 4.0-11.0 [facility] Comment on above: Performed By: #### C BC ####[facility] [address] [place], [place] [address]Dr. Rigo Sands IRONon 04-04-2022 Iron [Mass/Vol] 65.0 ug/dL Normal 50.0-170.0 [facility] Comment on above: Performed By: #### V ITAD, IRON, VITB12 ####[facility] [address] [place], [place] [address]Dr. Rigo Sands VITAMIN B12on 04-04-2022 Cobalamin (Vitamin B12) [Mass/Vol] 369.0 pg/mL Normal 193.0-986.0 [facility] Comment on above: Performed By: #### V ITAD, IRON, VITB12 ####[facility] [address] [place], [place] [address]Dr. Rigo Sands VITAMIN D 25 OHon 04-04-2022 VIT D 25-OH 59.2 ng/mL Normal [facility] Comment on above: Performed By: #### V ITAD, IRON, VITB12 ####[facility] [address] [place], [place] [address]Dr. Rigo Sands VIT D RANGES SEE BELOW Normal [facility] Comment on above: Result Comment: <20 ng/mL Vit D deficient 20 - <30 ng/mL Vit D insufficient 30 - 100 ng/mL Vit D sufficient >100 ng/mL Potential Toxicity Performed By: #### V ITAD, IRON, VITB12 ####[facility] [address] [place] [address]Dr. Rigo Sands CBC AUTO DIFFon 02-15-2022 BASO # 0.0 103/ul Normal 0.0-0.1 [facility] Comment on above: Performed By: #### C BC #### [facility] [address] [place] [address] [address] Rigo Sands Basophils/100 WBC (Bld) 0.2 % Normal 0.2-2.0 [facility] Comment on above: Performed By: #### C BC #### [facility] [address] [place] [address] Dr. Rigo Sands EO # 0.0 103/ul Normal 0.0-0.7 [facility] Comment on above: Performed By: #### C BC #### [facility] [address] [place] [address] Dr. Rigo Sands Eosinophils/100 WBC (Bld) 0.1 % Critically low 0.9-7.0 [facility] Comment on above: Performed By: #### C BC #### [facility] [address] [place] [address] Dr. Rigo Sands Erythrocyte distribution width (RBC) [Ratio] 13.5 % Normal 11.0-15.0 [facility] Comment on above: Performed By: #### C BC #### [facility] [address] [place] [address] Dr. Rigo Sands Hematocrit (Bld) [Volume fraction] 40.0 % Normal 36.0-48.0 [facility] Comment on above: Performed By: #### C BC #### [facility] [address] [place] [address] Dr. Rigo Sands Hemoglobin (Bld) [Mass/Vol] 13.4 g/dL Normal 12.0-16.0 [facility] Comment on above: Performed By: #### C BC #### [facility] [address] [place] [address] Dr. Rigo Sands IG # 0.04 10e3/ul Critically high 0.00-0.03 [facility] Comment on above: Performed By: #### C BC #### [facility] [address] [place] [address] Dr. Rigo Sands IG % 0.4 % Normal 0.0-0.5 [facility] Comment on above: Performed By: #### C BC #### [facility] [address] [place] [address] Dr. Rigo Sands LYMPH # 1.6 103/ul Normal 1.2-3.8 [facility] Comment on above: Performed By: #### C BC #### [facility] [address] [place] [address] Dr. Rigo Sands Lymphocytes/100 WBC (Bld) 17.2 % Critically low 20.5-60.0 [facility] Comment on above: Performed By: #### C BC #### [facility] [address] [place] [address] Dr. Rigo Sands MANUAL DIFF REQ NO Normal [facility] Comment on above: Performed By: #### C BC #### [facility] [address] [place] [address] Dr. Rigo Sands MCH (RBC) [Entitic mass] 30.7 pg Normal 26.7-34.0 [facility] Comment on above: Performed By: #### C BC #### [facility] [address] [place] [address] Dr. Rigo Sands MCHC (RBC) [Mass/Vol] 33.5 g/dL Normal 29.9-35.2 [facility] Comment on above: Performed By: #### C BC #### [facility] [address] [place] [address] Dr. Rigo Sands MCV (RBC) [Entitic vol] 91.5 fL Normal 81.0-99.0 [facility] Comment on above: Performed By: #### C BC #### [facility] [address] [place] [address] Dr. Rigo Sands MONO # 0.4 103/ul Normal 0.3-0.8 [facility] Comment on above: Performed By: #### C BC #### [facility] [address] [place] [address] Dr. Rigo Sands Monocytes/100 WBC (Bld) 4.0 % Normal 1.7-12.0 [facility] Comment on above: Performed By: #### C BC #### [facility] [address] [place] [address] Dr. Rigo Sands NEUT # 7.4 103/ul Critically high 1.4-6.5 [facility] Comment on above: Performed By: #### C BC #### [facility] [address] [place] [address] Dr. Rigo Sands Neutrophils/100 WBC (Bld) 78.1 % Critically high 43.0-75.0 [facility] Comment on above: Performed By: #### C BC #### [facility] [address] [place] [address] Dr. Rigo Sands Platelet mean volume (Bld) [Entitic vol] 12.3 fL Normal 9.5-13.5 [facility] Comment on above: Performed By: #### C BC #### [facility] [address] [place] [address] Dr. Rigo Sands PLT 199 103/ul Normal 150-450 [facility] Comment on above: Performed By: #### C BC #### [facility] [address] [place] [address] Dr. Rigo Sands RBC 4.37 106/ul Normal 4.20-5.40 [facility] Comment on above: Performed By: #### C BC #### [facility] [address] [place] [address] Dr. Rigo Sands WBC 9.5 103/ul Normal 4.0-11.0 [facility] Comment on above: Performed By: #### C BC #### [facility] [address] [place] [address] Dr. Rigo Sands ER URINE PROFILEon 2 Bilirubin Ql (U) Negative Normal NEGATIVE [facility] Comment on above: Performed By: #### E RUR ####[facility] [address] [place], [place] [address]Dr. Rigo Sands Clarity (U) CLEAR Normal CLEAR [facility] Comment on above: Performed By: #### E RUR ####[facility] [address] [place], [place] [address]Dr. Hilarygilma Sands Color (U) LT. YELLOW Normal YELLOW [facility] Comment on above: Performed By: #### E RUR ####[facility] [address] [place], [place] [address]Dr. Rigo Sands ERUAHD A micrscopic examination will be performed if indicated. Normal [facility] Comment on above: Performed By: #### E RUR ####[facility] [address] [place], [place] [address]Dr. Rigo Sands Glucose Ql (U) Negative Normal NEGATIVE [facility] Comment on above: Performed By: #### E RUR ####[facility] [address] [place], [place] [address]Dr. Rigo Sands Hemoglobin Ql (U) Negative Normal NEGATIVE [facility] Comment on above: Performed By: #### E RUR ####[facility] [address] [place], [place] [address]Dr. Rigo Sands Ketones Ql (U) 15 mg/dl Abnormal NEGATIVE [facility] Comment on above: Performed By: #### E RUR ####[facility] [address] [place], [place] [address]Dr. Rigo Sands LEUKOCYTES Negative Normal NEGATIVE [facility] Comment on above: Performed By: #### E RUR ####[facility] [address] [place], [place] [address]Dr. Rigo Sands Nitrite Ql (U) Negative Normal NEGATIVE [facility] Comment on above: Performed By: #### E RUR ####[facility] [address] [place], [place] [address]Dr. Rigo Sands pH (U) 6.0 [pH] Normal 5-9 [facility] Comment on above: Performed By: #### E RUR ####[facility] [address] [place] [address]DrRobert Sands SPEC GRAVITY <=1.005 Abnormal 1.005-<=1.0 25 [facility] Comment on above: Performed By: #### E RUR ####[facility] [address] [place] [address]DrRobert Sands UA PROTEIN Negative Normal NEGATIVE/ TRACE [facility] Comment on above: Performed By: #### E RUR ####[facility] [address] [place] [address]Dr. Rigo Sands UR MICRO IND NOT INDICATED Normal [facility] Comment on above: Performed By: #### E RUR ####[facility] [address] [place] [address]Dr. Rigo Sands Urobilinogen Qn (U) 0.2 {Keegan'U}/dL Normal 0.2 - 1. 0 [facility] Comment on above: Performed By: #### E RUR ####[facility] [address] [place] [address]DrRobert Sands LIPASEon 02-15-2022 Lipase [Catalytic activity/Vol] 50.0 U/L Critically low 73.0-393.0 [facility] Comment on above: Performed By: #### C ANALIA LIPA #### [facility] [address] [place] [address] Dr. Rigo Sands PROF 14(COMP METB)on 022 Albumin [Mass/Vol] 3.8 g/dL Normal 3.4-5.0 [facility] Comment on above: Performed By: #### C ANALIA LIPA #### [facility] [address] [place] [address] Dr. Rigo Sands Albumin/Globulin [Mass ratio] 1.2 {ratio} Normal [facility] Comment on above: Performed By: #### C ANALIA LIPA #### [facility] [address] [place] [address] Dr. Rigo Sands ALP [Catalytic activity/Vol] 60 U/L Normal 46-116 [facility] Comment on above: Performed By: #### C MP, LIPA #### [facility] [address] [place] [address] Dr. Rigo Sands ALT [Catalytic activity/Vol] 36 U/L Normal 14-59 [facility] Comment on above: Performed By: #### C MP, LIPA #### [facility] [address] [place] [address] Dr. Rigo Sands Anion gap [Moles/Vol] 12.0 mmol/L Normal [facility] Comment on above: Performed By: #### C MP, LIPA #### [facility] [address] [place] [address] Dr. Rigo Sands AST [Catalytic activity/Vol] 16 U/L Normal 15-37 [facility] Comment on above: Performed By: #### C MP, LIPA #### [facility] [address] [place] [address] Dr. Rigo Sands Bilirubin [Mass/Vol] 0.3 mg/dL Normal 0.2-1.0 [facility] Comment on above: Performed By: #### C MP, LIPA #### [facility] [address] [place] [address] Dr. Rigo Sands Calcium [Mass/Vol] 8.8 mg/dL Normal 8.5-10.1 [facility] Comment on above: Performed By: #### C MP, LIPA #### [facility] [address] [place] [address] Dr. Rigo Sands Chloride [Moles/Vol] 104 mmol/L Normal 98-107 [facility] Comment on above: Performed By: #### C MP, LIPA #### [facility] [address] [place] [address] Dr. Riog Sands CO2 [Moles/Vol] 27.6 mmol/L Normal 21.0-32.0 [facility] Comment on above: Performed By: #### C MP, LIPA #### [facility] [address] [place] [address] Dr. Rigo Sands Creatinine [Mass/Vol] 0.78 mg/dL Normal 0.55-1.02 [facility] Comment on above: Performed By: #### C MP, LIPA #### [facility] [address] [place] [address] Dr. Rigo Sands EGFR-AF CITIZEN [place] >60 Normal >=60 [facility] Comment on above: Performed By: #### C MP, LIPA #### [facility] [address] [place] [address] [address] Rigo Sands EGFR-NON AF CITIZEN OF [place] >60 Normal >=60 [facility] Comment on above: Performed By: #### C MP, LIPA #### [facility] [address] [place] [address] Dr. Rigo Sands Globulin (S) [Mass/Vol] 3.2 g/dL Normal [facility] Comment on above: Performed By: #### C MP, LIPA #### [facility] [address] [place] [address] Dr. Rigo Sands Glucose [Mass/Vol] 83 mg/dL Normal 74-106 [facility] Comment on above: Performed By: #### C MP, LIPA #### [facility] [address] [place] [address] Dr. Rigo Sands Potassium [Moles/Vol] 3.6 mmol/L Normal 3.5-5.1 [facility] Comment on above: Performed By: #### C MP, LIPA #### [facility] [address] [place] [address] Dr. Rigo Sands Protein [Mass/Vol] 7.0 g/dL Normal 6.4-8.2 [facility] Comment on above: Performed By: #### C MP, LIPA #### [facility] [address] [place] [address] Dr. Rigo Sands Sodium [Moles/Vol] 140 mmol/L Normal 136-145 [facility] Comment on above: Performed By: #### C MP, LIPA #### [facility] [address] [place] [address] Dr. Rigo Sands Urea nitrogen [Mass/Vol] 16.0 mg/dL Normal 7.0-18.0 [facility] Comment on above: Performed By: #### C ANALIA, LIPMathew #### [facility] [address] [address] [address] Rigo Sands Urea nitrogen/Creatinine [Mass ratio] 20.5 mg/mg Normal [facility] Comment on above: Performed By: #### C MP, LIPA #### [facility] [address] [address] [address] Rigo Sands PROTIMEon 02-15-2022 INR Coag (PPP) [Relative time] 1.03 {INR} Normal [facility] Comment on above: Performed By: #### P TT, PT ####[facility] [address] [place] [address]Dr. Rigo Sands INR GUIDELINES SEE BELOW Normal [facility] Comment on above: Result Comment: SERINA RED INR: 2.0 - 3.0 CONDITIONS NOT LISTED BELOW 2.5 - 3.5 FOR PROSTHETIC HEART VALVE REPLACEMENT 2.5 - 3.5 RECURRENT THROMBOSIS Performed By: #### P TT, PT ####[facility] [address] [place] [address]Dr. Rigo Sands PT Coag (PPP) [Time] 11.1 s Normal 9.0-11.6 [facility] Comment on above: Performed By: #### P TT, PT ####[facility] [address] [place] [address]Dr. Rigo Sands PTTon 02-15-2022 aPTT Coag (Bld) [Time] 26.8 s Normal 22.3-36.2 [facility] Comment on above: Performed By: #### P TT, PT ####[facility] [address] [place], [place] [address]Dr. Rigo Sands XR ABD FLAT UP_PA Jeannette [...] MAURO POSADAS Date: 2022-02-15 14:44 Normal [facility] XR hand LT min 3V*on 022 XR hand LT min 3V* [facility] Organizer Other XR hand LT min 3V* [facility] Organizer Other XR hand LT min 3V* [address] [place] [address] [employer] Other XR hand LT min 3V* LIA Roman [id number] [employer] Other XR hand LT min 3V* XRay Report [employer] Other XR hand LT min 3V* Signed [employer] Other XR hand LT min 3V* Patient: Torrey Antony MR#: [id number] [employer] Other XR hand LT min 3V* [id number] [employer] Other XR hand LT min 3V* : 1990 Acct:[id number] [employer] Other XR hand LT min 3V* Age/Sex: 30 / F ADM Date: 10/18/21 [employer] Other XR hand LT min 3V* Loc: XDUCLY Room: pe: REG CLI [employer] Other XR hand LT min 3V* Attending Dr: Tiki GODDARD [employer] Other XR hand LT min 3V* Ordering Provider: NITZA Edgar [employer] Other XR hand LT min 3V* Date of Service: 10/18/21 [employer] Other XR hand LT min 3V* XR/XR hand LT min 3V*: Left hand pain [employer] Other XR hand LT min 3V* Copies to: NITZA Edgar [employer] Other XR hand LT min 3V* 4 viewsleft hand denise in film [employer] Other XR hand LT min 3V* COMPARISON:None N [employer] Other XR hand LT min 3V* HISTORY:Left hand injury. [employer] Other XR hand LT min 3V* No fracture, dislocation or focal soft tissue abnormality seen. [employer] Other XR hand LT min 3V* XR/XR hand LT min 3V* [employer] Other XR hand LT min 3V* IMPRESSION:No acute findings [employer] Other XR hand LT min 3V* Impression dictated by: Elton Rodrigez M.D.10/18/2021 11:50 AM [employer] Other XR hand LT min 3V* Dictation Location: [place] [address] [employer] Other XR hand LT min 3V* Transcribed By: DIANA 10/18/21 1150 [employer] Other XR hand LT min 3V* Dictated By: Elton Rodrigez DO 10/18/21 1149 [employer] Other XR hand LT min 3V* Signed By: [employer] Other XR hand LT min 3V* 10/18/21 1150 [facility] Organizer Other Phone Sunita 04-22-2021 Phone Msg Entered by MERCEDES HOPKINS FACOG, NAZ on April 22, 2021 15:42:24 EDT From: NAZ LONG MD, FACOG To: [facility]/pharmacy #[id number] Sent: 04/22/2021 15:42:23 EDT Subject: Medication Management Not Approved: Patient should contact Prescriber first ibuprofen = Motrin, Advil (IBUPROFEN 600 MG TABLET) TAKE 1 TABLET BY MOUTH EVERY 6 HOURS Qty: 40 tabs Days Supply: 10 Refills: 0 Substitutions Allowed Route To Pharmacy - [facility]/pharmacy #[id number] From: [id number] To: NAZ LONG MD Sent: April 22, 2021 3:29:46 PM EDT Subject: Medication Management Due: April 08, 2021 4:20:54 PM EDT On Hold Pending Signature Dispensed Drug: ibuprofen = Motrin, Advil (ibuprofen 600 mg oral tablet), TAKE 1 TABLET BY MOUTH EVERY 6 HOURS Quantity: 40 tabs Days Supply: 10 Refills: 0 Substitutions Allowed Notes from Pharmacy: Normal [facility] Operative Reporton Operative Report MR#: [id number] S [facility] Pt. Name: Torrey Antony Room #: 0C Discharge Date: Birthdate: 1990 OPERATIVE REPORT DATE OF SURGERY: 11/30/2020 SURGEON: Frances Nicole M.D. BAND TEACHER: Maribel Vazquez MD PREAMBLE: A 29-year-old female [...] Nicole M.D. Date Trans: 11/30/2020 10:59 A/simran [id number] cc: Miriam Reeves, CUSTOMER SERVICE PROFESSIONAL [address] [facility] [address] Normal The [facility] POC GLUCOSE LABon 11-30-2020 Glucose [Mass/Vol] 75 mg/dL Normal 70-100 [facility] Comment on above: Performed By: #### 8 5499 #### [facility] [address] [facility]. [address] POC URINE PREGNANCYon 2020 Beta HCG ( test) Ql (U) Negative Normal NEGATIVE [facility] Comment on above: Result Comment: Perf ormed in PACU Performed By: #### 8 4140 #### [facility] [address] [facility]. [address] Phone Msgon 11-21-2020 Phone Msg - From: NAZ LONG MD, FACOG To: TORREY ANTONY Sent: 11/20/2020 22:44:14 EDT Subject: Normal pap Torrey, Your pap smear was normal. Naz Long MD Normal [facility] THIN PREP IMAGE SEND OUTon 0 11-20-2020 THIN PREP IMAGE SEND OUT See Report Normal [facility] Comment on above: Performed By: #### C D:[id number] #### [facility] Services [address] [place], [place] [id number] Representative Phlebotomy Services: Yobany Diaz MD Operative Reporton Operative Report [...] quadrant under direct visualization. I used the Campbell-GeIXcellerate graspers to grasp the left fallopian tube [...] at the end of the procedure. Normal [facility] Amb Office-Progress Notes-Pr ovideron 11-08-2020 Amb Office-Progress Notes-Provider Assessment/Plan 1. Cervical cancer screening Z12.4 Ordered: AMB Office/Outpt Est Pt SF MDM / 10-19 min [id number], 11/08/2020 12:43:00 EDT, Cervical cancer screening THIN PREP IMAGE SEND OUT, ROUTINE, 11/08/2020, Specimen type: SLOT TAG INSERTER Spec, Dx: Cervical cancer screening Chief Complaint [...] normal: yes Insight and judgement normal: yes SLOT TAG INSERTER: External genitalia: normal, no lesions Urethra: normal meatus Vagina: normal no lesions, no discharge, vault normal Cervix: no lesions, no cervical motion tenderness, normal appearance Uterus: normal mobility, non-tender, normal size, shape and consistency Adnexa: normal Cul de sac: normal Perineum: no hemorrhoids, masses or warts noted SLOT TAG INSERTER Additional Details Menstrual History Menstrual StatusProphylaxis Problem List/Past Medical History Ongoing Anxiety BMI 33.0-33.9,adult Gastritis Irregular periods IUD (intrauterine device) in place Migraine with aura Historical Procedure/Surgical History Anjana IUD Lot # [id number] (07/29/2020) LAPAROSCOPIC RIGHT OOPHERECTOMY (12/24/2018) D&C/Nexplanon removal () D&C, retained placenta (2014) Pap negative (06/16/2014) Medications ibuprofen 600 mg oral tablet, 600 mg= 1 tabs, ORAL, [id number] Anajna 13.5 mg intrauterine device, 13.5 mg= 1 [...] about 70). Stroke..: Grandfather and Grandmother. Normal [facility] Ambulatory Clinical Summaryo n 11-08-2020 Ambulatory Clinical Summary TORREY ANTONY :1990 Visit Date:11/08/2020 Ambulatory Visit Instructions Your Care Team Attending Physician - NAZ LONG MD, FACOG Primary Care Physician - EMILY FAMILY PHYSICIAN, 837 Procedures Performed Anjana IUD Lot # [id number] (07/29/2020) LAPAROSCOPIC RIGHT OOPHERECTOMY (12/24/2018) D&C/Nexplanon removal [...] call to get immediate medical attention! Normal [facility] Phone Msgon 09-15-2020 Phone Msg Entered by Luli Ribeiro on September 15, 2020 11:07:26 EDT I called and left her a voice mail to call and scheduled her surgery. Please find the order information listed below. Ordered By:NAZ LONG MD, FACOG REGIMEN_DETAIL: Requested Start Date/Time: 09/14/2020 11:37:00 EDT Intent of therapy: From: Luli Ribeiro ([facility] Surgery Scheduling) To: NAZ LONG MD; Sent: 09/15/2020 16:07:14 EDT Subject: RE: AMB Schedule Surgery called back and scheduled her, made her post op appt. she is scheduled for 11/19/2020 scheduled her, made her post op appt. she is scheduled for 11/19/2020 scanned in chart Normal [facility] Phone Msg - From: Luli Ribeiro ([facility] Surgery Scheduling) To: NAZ LONG MD; Sent: 09/15/2020 11:06:57 EDT Subject: RE: AMB Schedule Surgery Called and left her a voice mail to call and schedule her surgery, I am looking at 10/15/2020 at the [facility]. Please find the order information listed below. Ordered By:NAZ LONG MD, FACOG REGIMEN_DETAIL: Requested Start Date/Time: 09/14/2020 11:37:00 EDT Intent of therapy: Normal [facility] Ambulatory Clinical Summaryo n 09-14-2020 Ambulatory Clinical Summary TORREY ANTONY :1990 Visit Date:09/14/2020 Ambulatory Visit Instructions Your Diagnosis Mastalgia Your Care Team Attending Physician - NAZ LONG MD, FACOG Primary Care Physician - NO FAMILY PHYSICIAN, 837 Procedures Performed Anjana IUD Lot # [id number] (07/29/2020) LAPAROSCOPIC RIGHT OOPHERECTOMY (12/24/2018) Laparoscopy, surgical; [...] call to get immediate medical attention! Normal [facility] Phone Msgon 09-14-2020 Phone Msg - From: Cat Diaz To: Luli Ribeiro; Sent: 09/14/2020 12:57:29 EDT Subject: Surgery Pt needs scheduled for a tubal ligation. Forms have been scanned into documents - consent. Normal [facility] Ambulatory Clinical Summaryo n 07-29-2020 Ambulatory Clinical Summary TORREY ANTONY :1990 Visit Date:07/29/2020 Ambulatory Visit Instructions Your Diagnosis Pre-procedure lab exam Encounter for IUD removal and reinsertion Tests Performed AMB Urine POC 90678 Your Care Team Attending Physician - MERCEDES HOPKINS FACOG, NAZ Primary Care Physician - EMILY FAMILY PHYSICIAN, 837 Procedures Performed Anjana IUD Lot # [id number] (07/29/2020) Kyleena Iud removed 07/29/20 (12/24/2018) LAPAROSCOPIC [...] migraine headache Test Results AMB Urine POC 56872 (07/29/2020) U beta hCG Ql - Negative [...] call to get immediate medical attention! Normal [facility] Phone Msgon 07-14-2020 Phone Msg - From: Gay Lam To: Kathleen Lopez RN; Sent: 07/13/2020 15:20:51 EST Subject: test results Patient is calling and would like to have the results from her genetic testing. If you can please call her. [phone] From: Kathleen Lopez RN To: NAZ LONG MD; Sent: 07/13/2020 15:29:49 EST Subject: FW: test results I spoke with her about her results. Normal [facility] C GENITALon 06-26-2020 C GENITAL [facility] [address] [place] [id number] Name: TORREY ANTONY : 1990 Admitting Provider: Gender: Female Financial [id number] Number: Location: [facility]. Admit 06/22/2020 Date: Discharge 06/22/2020 Date: Microbiology [...] Print Date/ 06/28/2020 08:29 EST Time: Normal [facility] Comment on above: Performed By: #### 1 [id number] #### [facility] Services [address] [place] [address] Representative Phlebotomy Services: Yobany Diaz MD GP [place] 06-23-2020 Genprobe Chlamydia Negative Normal [facility] Comment on above: Order Comment: Order ed on [facility]# [id number] Result Comment: This Chlamydia assay is being performed via a second generation NAAT that utilizes target capture, nurse ob mediated amplification and dual kenetic assay technologies. Performed By: #### C D:[id number], [id number] ####[facility] Laboratory [address] [place] [address] Medical Director: Yobany Diaz MD GP GCon 06-23-2020 Genprobe GC Negative Normal [facility] Comment on above: Order Comment: Order ed on Fin# [id number] Result Comment: This Gonorrhoea assay is being performed via a second generation NAAT that utilizes target capture, nurse ob mediated amplification and dual kenetic assay technologies. Performed By: #### C D:[id number], [id number], [id number] ####[facility] Laboratory [address] [place] [address] Medical Director: Yobany Diaz MD GP Trichomonason 06-23-2020 GP Trichomonas Negative Normal [facility] Comment on above: Order Comment: Order ed on Fin# [id number] Result Comment: This Trichomonas assay is being performed via a second generation NAAT that utilizes target capture, nurse ob mediated amplification and dual kenetic assay technologies. Performed By: #### C D:[id number], [id number], [id number] ####[facility] Laboratory [address] [place] [address] Medical Director: Yobany Diaz MD HEP B AGon 06-23-2020 Hepatitis B Surface Antigen Non-Reactive Normal [facility] Comment on above: Order Comment: Order ed on Fin# [id number] Result Comment: High levels of serum biotin may interfere with this test. Performed By: #### 1 [id number], [id number] #### [facility] Laboratory Services [address] [place] [address] Representative Phlebotomy Services: Yobany Diaz MD HEP C ABon 06-23-2020 Hepatitis C Antibody Non-Reactive Normal [facility] Comment on above: Order Comment: Order ed on Fin# [id number] Performed By: #### 1 [id number], [id number] #### [facility] Services [address] [place] [address] Representative Phlebotomy Services: Yobany Diaz MD HIV 1O2on 06-23-2020 HIV Panel 1&2 Non-Reactive Normal [facility] Comment on above: Order Comment: Order ed on Fin# [id number] Performed By: #### 1 [id number] #### [facility] Services [address] [place] [address] Representative Phlebotomy Services: Yobany Daiz MD RPRon 06-23-2020 Reagin Ab RPR Ql (S) Non-Reactive Normal [facility] Comment on above: Order Comment: Order ed on Fin# [id number] Performed By: #### 1 [id number] #### [facility] Laboratory Services [address] [place] [address] Representative Phlebotomy Services: Yobany Diaz MD [facility] Amb[facility] Clinical Summary TORREY ANTONY :1990 [...] call to get immediate medical attention! Normal [facility] Phone Msgon 06-22-2020 Phone Msg [...] it is called in. Cytote proposed Normal [facility] US TV ECHO NON OB [...] position and orientation. Normal left ovary. Normal [facility] Comment on above: Order Comment: Order ed on Fin# [id number] Result Comment: Tech nologist: LEE Dictated By: NAZ LONG MD, FACOG Signed By: NAZ LONG MD, FACOG Transcribed: 06.22.2020 14:34 Signed Out: 06/22/20 14:34:04 Operative Reporton 0 Operative Report MR#: [id number] S [facility] Pt. Name: Torrey Antony Room #: 0C Discharge Date: Birthdate: 1990 OPERATIVE REPORT DATE OF SURGERY: 04/26/2020 SURGEON: Frances Nicole M.D. BAND TEACHER: Maribel Vazquez MD PREOPERATIVE DIAGNOSIS: Left wrist [...] Vazquez MD Date Trans: 04/26/2020 11:31 A/simran [id number] cc: Miriam Reeves, CUSTOMER SERVICE PROFESSIONAL [address] [facility] [address] Normal The [facility] POC GLUCOSE LABon 04-26-2020 Glucose [Mass/Vol] 81 mg/dL Normal 70-100 [facility] Comment on above: Performed By: #### 8 5499 #### [facility] [address] POC URINE PREGNANCYon 2019 Beta HCG ( test) Ql (U) Negative Normal NEGATIVE [facility] Comment on above: Result Comment: Perf ormed in PACU Performed By: #### 8 4140 #### [address] *SARS-CoV-2 COVID-19on 04-24 SARS-CoV-2 (COVID-19) RNA OK+probe Ql (Unsp spec) Not detected Normal Not Detected The [facility] Comment on above: Order Comment: The A ptima SARS-CoV-2 assay is a nucleic acid amplification test intended for the qualitative detection of RNA from SARS-CoV-2 isolated and purified from nasopharyngeal (SUBSTANCE ABUSE NURSE),oropharyngeal (OP), nasal swab, sputum, and bronchoalveolar lavage (BAL) specimens from patients with signs and symptoms of infection who are suspected of COVID-19. Results are for the identification of SARS-CoV-2 RNA. The SARS-CoV-2 RNA is generally detectable during the acute phase of infection. The Aptima SARS-CoV-2 Assay on the [employer] and [place] [employer] system is intended for use by laboratory personnel specifically instructed and trained in the operation of the [place] and [employer] Fusion system. The Aptima SARS-CoV-2 assay is [...] information. Performed By: #### 3 1792 #### [address] NM Hepatobiliary System w/ P fonseca 06-12-2017 NM Hepatobiliary System w/ Pharm Patient Name: TORREY ANTONY Nuc Med Exam Date/Time 06/12/2017 13:09:26 EST Exam NM Hepatobiliary Duct System Imaging Ordering Physician ROSENDODO MOSCOSO PAUL FRANCIS Accession Number [id number] CPT4 Codes 73836 () Reason For Exam Nausea Report Study: [...] Transcribed Date and Time: 06/12/2017 1:28 Normal [facility] CNOVon 05-22-2017 CNOV Office Visit (WALKWA) TORREY ACEVEDO ([id number]) 1990 [facility] Time Provider Cwnumoqvjw14/5/17 9:30 AM KAMRAN WALLIS) GABY During your visit today, we recorded the following information about you: Temperature Pulse Respiration Blood pressure 96.8 degrees 101/minute 16/minute 113/80 Weight 87.1 kgRachel Amee Wallis PA-C, PA 05/22/2017 10:14 AM Afucgv2405/22/2017Patient presents with:Acute VisitSUBJECTIVE: This is a 26 [...] labs, fluids, or any imaging from this [facility] Care settingReferred to ER for further eval of pain- labs, fluids, may need imaging- [facility] ERVitals stable, no fever. She refused offer [...] agreement with plan of care. Sameer KrishnamurthyMARCIN [facility] Childrenrebecca [address], [address], [place] [address]Fuyyl: [phone]: [phone] P [place] 2016RE: Torrey AntonyTo Whom it May Concern:This is to certify that Torrey Antony was seen here for medical care.Please excuse them from work today.Thank you for your cooperation in this matter.Sincerely,Kamran Wallis PA-C(Electronically signed to expedite processing) Status:Closed by KAMRAN WALLIS on 05/22/17 Normal [facility] PROGRESSon 05-22-2017 PROGRESS HNO ID: [id number]: Kamran Lubin (Tatiana) Jesus Wallis: (none)Author Type: [...] pain- labs, fluids, may need imaging-[facility] ERVitals stable, no fever. She refused offer of antiemetics, PPI, and watchan see option for possible simply viral cause- and go to ER this afternoonif persisting. She would prefer ER now.No further questions.Follow up as needed.Barriers to learning: none.The patient verbalizes understanding and is in agreement with plan ofcare.Kamran Wallis PA-C Normal [facility] CR Chest PA/LATon 04-07-2017 CR Chest PA/LAT Patient Name: TORREY CAAL Diagnostic Radiology Exam Date/Time 04/07/2017 10:07:18 EDT Exam CR Chest PA/LAT Ordering Physician MD RUTHIE, MAURO Lubin Accession Number [id number] CPT4 Codes 46330 () Reason For Exam dyspnea Report CHEST [...] Transcribed Date and Time: 04/07/2017 10:25 Normal [facility] RF Small Bowel w/ Serial Ryan mson 01-01-2017 RF Small Bowel w/ Serial Films Patient Name: TORREY ANTONY Fluoroscopy Exam Date/Time 01/01/2017 10:06:32 EDT Exam RF Small Bowel w/ Serial Films Ordering Physician DO ROWELL PAUL FRANCIS Accession Number [id number] [facility] Codes 85115 () Reason For Exam epigastric pain Report [...] Transcribed Date and Time: 01/01/2017 11:18 Normal [facility] Surgical Pathologyon 06-27-2 017 Surgical Pathology [id number] [facility] PATHOLOGY AND LABORATORY MEDICINE [address] [place] [phone] Fax - FINAL SURGICAL PATHOLOGY REPORT NAME: TORREY ANTONY .O.B.: 1990 25 Y F BILLING NO.: [id number]: WENDO PROCEDURE 12/12/2016 DATE:SURGEON: MANI ROWELL DO [...] Submitted entirely in one cassette. (2ns, 1) MLC1/ZQT1Ltbkrskdgb: The following statement applies to allimmunohistochemistry , in situ hybridization, molecular studies, andimmunofluorescence testing.The use of one or more reagents in the above tests is regulated as ananalyte specific reagent (ASR). These tests were developed and theirperformance characteristics determined by the clinical laboratories [facility]. They have not been cleared by [...] false negativity on decalcified specimens[place] [address]. DEPARTMENT OF PATHOLOGY AND LABORATORY MEDICINE [place], [place] [address] Normal [facility] Comment on above: Performed By: #### S UR ####Performing Lab is in report US Abdomen Limitedon 017 US Abdomen Limited Patient Name: TORREY CAAL Ultrasound Exam Date/Time 12/12/2016 12:25:54 EDT Exam US Abdomen Limited Ordering Physician DO ROWELL PAUL FRANCIS Accession Number [id number] CPT4 Codes 89143 () Reason For Exam epigasric pain Report [...] Transcribed Date and Time: 12/12/2016 3:07 Normal [facility] Anti-Nuclear Antibodyon 11-17 VLADISLAV Titer <1:40 Normal <1:40 [facility] Comment on above: Performed By: #### A NA ####[address] [address] Vital Signs Date Time Vital Sign Value Performing Clinician Facility 10-16-2023 14:50-0400 Body temperature 97.8 [degF] SUBSTANCE ABUSE NURSE-C Tiki Thomas Work Phone: [facility] 10-16-2023 14:50-0400 Diastolic blood pressure 78 mm[Hg] SUBSTANCE ABUSE NURSE-C Tiki Thomas Work Phone: [facility] 10-16-2023 14:50-0400 Heart rate 77 /min SUBSTANCE ABUSE NURSE-C Tiki Thomas Work Phone: [facility] 10-16-2023 14:50-0400 Respiratory rate 16 /min SUBSTANCE ABUSE NURSE-C Tiki Thomas Work Phone: [facility] 10-16-2023 14:50-0400 SaO2% (BldA) [Mass fraction] 98 % SUBSTANCE ABUSE NURSE-C Tiki Thomas Work Phone: [facility] 10-16-2023 14:50-0400 Systolic blood pressure 120 mm[Hg] SUBSTANCE ABUSE NURSE-C Tiki Thomas Work Phone: [facility] 10-16-2023 10:05-0400 Body height 165.1 cm SUBSTANCE ABUSE NURSE-C Tiki Thomas Work Phone: [facility] 10-16-2023 10:05-0400 Body weight 66.1 kg SUBSTANCE ABUSE NURSE-C Tiki Thomas Work Phone: [facility] 10-15-2023 16:25-0400 Diastolic blood pressure 80 mm[Hg] [facility] 10-15-2023 16:25-0400 Heart rate 95 /min [facility] 10-15-2023 16:25-0400 SaO2% (BldA) [Mass fraction] 99 % [facility] 10-15-2023 16:25-0400 Systolic blood pressure 102 mm[Hg] [facility] 03-22-2023 16:00-0400 Body height 167.64 cm Mark Myrick Other [facility] [employer] Other 03-22-2023 16:00-0400 Diastolic blood pressure 80 mm[Hg] Mark Myrick Other [facility] Other 03-22-2023 16:00-0400 SaO2% (BldA) [Mass fraction] 98 % Mark Myrick Other [employer] Other 03-22-2023 16:00-0400 Systolic blood pressure 120 mm[Hg] Mark Myrick Other [employer] Other 12-20-2022 09:00-0400 Body height 167.64 cm Arely Jackman Other [employer] Other 12-20-2022 09:00-0400 Body mass index (BMI) [Ratio] 30.37 kg/m2 Arely Jackman Other [employer] Other 12-20-2022 09:00-0400 Body weight 85.37 kg Arely Jackman Other [employer] Other 12-20-2022 09:00-0400 Diastolic blood pressure 70 mm[Hg] Arely Jackman Other [employer] [facility] [employer] Other 12-20-2022 09:00-0400 SaO2% (BldA) [Mass fraction] 99 % Arely Jackman Other [employer] Other 12-20-2022 09:00-0400 Systolic blood pressure 118 mm[Hg] Arely Jackman Other [employer] Other 12-14-2022 13:15-0400 Body height 167.64 cm Mark Ramez Other [employer] Other 12-14-2022 13:15-0400 Diastolic blood pressure 86 mm[Hg] Mark Myrick Other [employer] Other 12-14-2022 13:15-0400 SaO2% (BldA) [Mass fraction] 98 % Mark Myrick Other [employer] Other 12-14-2022 13:15-0400 Systolic blood pressure 122 mm[Hg] Mark Myrick Other [employer] Other 12-06-2022 13:08-0400 Diastolic blood pressure 84 mm[Hg] SUBSTANCE ABUSE NURSE-C Tiki Thomas Work Phone: [facility] 12-06-2022 13:08-0400 Heart rate 87 /min SUBSTANCE ABUSE NURSE-C Tiki Thomas Work Phone: [facility] 12-06-2022 13:08-0400 Respiratory rate 16 /min SUBSTANCE ABUSE NURSE-C Tiki Thomas Work Phone: [facility] 12-06-2022 13:08-0400 SaO2% (BldA) [Mass fraction] 98 % SUBSTANCE ABUSE NURSE-C Tiki Thomas Work Phone: [facility] 12-06-2022 13:08-0400 Systolic blood pressure 126 mm[Hg] SUBSTANCE ABUSE NURSE-C Tiki Thomas Work Phone: [facility] 12-06-2022 12:21-0400 Inhaled oxygen flow rate 3 L/min SUBSTANCE ABUSE NURSE-C Tiki Thomas Work Phone: [facility] 12-06-2022 09:28-0400 Body height 165.1 cm SUBSTANCE ABUSE NURSE-C Tiki Thomas Work Phone: [facility] 12-06-2022 09:28-0400 Body weight 85.27 kg SUBSTANCE ABUSE NURSE-C Tiki Thomas Work Phone: [facility] 10-16-2022 17:00-0400 Body height 167.64 cm Mark Myrick Other [facility] [employer] Other 10-16-2022 17:00-0400 Diastolic blood pressure 80 mm[Hg] Mark Myrick Other [facility]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 October, Other [employer] tape material was printed [facility] Other 03-30-2022 Evaluation note* Encounter Date Diagnosis [...] (ICD-10 - G89.29) Continue medications as prescribed [facility] Other 03-14-2022 Evaluation note* Encounter Date Diagnosis [...] (ICD-10 - G89.29) Continue medications as prescribed [facility] Other 02-24-2022 Evaluation note* Encounter Date Diagnosis [...] (ICD-10 - G89.29) Continue medications as prescribed [facility] Other 02-10-2022 Evaluation note* Encounter Date Diagnosis [...] (ICD-10 - G89.29) Continue medications as prescribed [facility] Other 01-19-2022 Evaluation note* Encounter Date Diagnosis [...] these diagnostic procedures prior to surgical intervention. [facility] Other 12-07-2021 Evaluation note* Encounter Date Diagnosis [...] F/u as scheduled for mid back pain. [facility] Other 10-22-2021 Evaluation note* Encounter Date Diagnosis [...] - M65.4) Stable, follow up as needed. [facility] Other 09-27-2021 Evaluation note* Encounter Date Diagnosis [...] I will consider a paravertebral nerve block. [employer] [facility] Other Evaluation noteNortPassionTag Other Evaluation noteNo InformationNortPassionTag Other Evaluation noteNo assessment information available [facility] Work Phone: Evaluation note* Diagnosis Onset Date Resolution Status Chronic pain acute Other migraine, not intracta ble, without status migrainosus acute [facility] Work Phone: History general Narrative - Reported* Type Description Date Medical History Depression Medical History Back Pain Medical History torn tendons Larm Surgical History D&C x2 Surgical History EGD Surgical History Colonoscopy Surgical History oophorectomy Surgical History ovarian cyst Surgical History Right Ovary Removal 01/2019 Surgical History left wrist Surgical History tendon repair L forearm 11/30/20 Hospitalization History Child Birthx1 [employer] [facility] Other History general Narrative - ReportedNoPassionTag Other Hospital Discharge instructions Additional Instructions If your symptoms return/worsen or you develop any further concerns or symptoms please see your doctor or return to the emergency department immediately.[facility] Work Phone: Summary Purpose Family [...] section and content) DATE CREATED AUTHOR 12/05/2017 [facility] DATE CREATED AUTHOR AUTHOR'S ORGANIZ ATION 12/11/2017 [facility] DATE CREATED AUTHOR AUTHOR'S ORGANIZ ATION 12/11/2017 [facility] DATE CREATED AUTHOR AUTHOR'S ORGANIZ ATION 12/12/2017 [facility] DATE CREATED AUTHOR AUTHOR'S ORGANIZ ATION 12/12/2017 [facility] DATE CREATED AUTHOR AUTHOR'S ORGANIZ ATION 01/14/2021 [facility] DATE CREATED AUTHOR AUTHOR'S ORGANIZ ATION 04/24/2021 [facility] DATE CREATED AUTHOR AUTHOR'S ORGANIZ ATION 11/24/2022 [facility] DATE CREATED AUTHOR AUTHOR'S ORGANIZ ATION 12/02/2022 [facility] DATE CREATED AUTHOR AUTHOR'S ORGANIZ ATION 10/27/2023 [facility] DATE CREATED AUTHOR AUTHOR'S ORGANIZ ATION 05/05/2024 [facility] l REASON FOR VISIT (unrecogniz ed section [...] to office today due to transportation issues, [employer] platform used for virtual visitbotox for migraine [...] BE BASED ON THE PRIMARY CLINICAL RECORDS. [employer] [facility]. provides no warranty or guarantee of the accuracy or completeness of information in this document.
--- NOTE | 2024-07-23 13:17 | P.CN_ITS ---
Consult Note: HPI Data of Consult Patient: known to practice within the last 3 years Requesting Physician: Tamar Guevara NP Primary Care Provider: OCTAVIA THOMAS Consult Narrative Reason for consult: f/u Narrative: Joy Arzola a 33 year old female presents for chronic left arm pain post work related injury. Pain 6/10 increasing to 10/10 with pushing, pulling, arm movement, lifting, activity. Patient has failed to benefit from tylenol, motrin, meloxicam, duloxetine, gabapentin, lyrica, baclofen and zonegran. has failed compound cream in the past. unfortunately [facility] decnied stellate ganglion block with current diagnosises, pt does meet criteria for RSD or CRPS which she would like added to her covered diagnosis. cc:: CC: Tamar Guevara NP Review of Systems ROS Status of ROS 10 or more systems reviewed and unremark able except as noted in history and below Musculoskeletal Reports: extremity pain PFSH PFSH Social History Little interest or pleasure in doing things: not at all Feeling down, depressed, or hopeless: not at all Meds Home Medications and Allergies Home Medications ?Medication ?Instructions ?Recorded ?Confirmed ?Type dextroamphetamine-amphetamine 15 15 mg PO DAILY 08/28/23 06/23/24 History mg tablet (Adderall) metoprolol tartrate 50 mg tablet 25 mg PO BID 08/28/23 06/23/24 History (Lopressor) multivitamin 1 tab PO DAILY 08/28/23 06/23/24 History ondansetron HCl 4 mg tablet 4 mg PO PRN nausea and vomiting 06/23/24 History Allergies Allergy/AdvReac Type Severity Reaction Status Date / Time Penicillins Allergy Severe Hives Verified 06/23/24 20:43 Exam Extremity Left upper extremity: lower arm Other: very mild dermatographia on the left upper extremity compared to the right. mild dysesthesia and hypoesthesia, as well as allodynia in patchy areas of her left upper extremity compared to the right. no appreciable nail growth changes and possibly some mild hair growth changes of her left upper extremity compared to the right. Assessment and Plan Assessment and Plan (1) Entrapment of left radial nerve: (2) De Quervain's tenosynovitis: (3) Other synovitis and tenosynovitis, left hand: (4) Reflex sympathetic dystrophy, unspecified: (5) CRPS (complex regional pain syndrome): Plan start amitriptyline 10mg HS for 2 weeks, increasing to 20mg HS. risks vs benefits reviewed plan for left stellate ganglion block under fluoroscopy in the future when RSD/CRPS added to problem list f/u to be determined
== END 2024-07-23 12:44 | disposition home or self-care (01) ==
PROVIDERS: PCP Nurse Practitioner Family; Visit Provider Nurse Practitioner
DX: M65.842 Other synovitis and tenosynovitis, left hand (principal); G58.8 Other specified mononeuropathies; M65.4 Radial styloid tenosynovitis [de Quervain]; G56.42 Causalgia of left upper limb
CPT/HCPCS: G0463

== ENCOUNTER 2024-07-25 13:13 | Outpatient (OUT) | payer OTHER, SELFPAY ==
[2024-07-25 13:46] LABS: Cannabinoid Screen Urine POSITIVE (NEGATIVE)
[2024-07-25 13:47] LABS: Amphetamine Screen Urine POSITIVE (NEGATIVE); Barbiturates Screen Urine NEGATIVE (NEGATIVE); Benzodiazepines Screen Urine NEGATIVE (NEGATIVE); Buprenorphine Screen Urine NEGATIVE (NEGATIVE); Cocaine Screen Urine NEGATIVE (NEGATIVE); Methadone Screen Urine NEGATIVE (NEGATIVE); Methamphetamines Screen Urine NEGATIVE (NEGATIVE); Opiate Screen Urine NEGATIVE (NEGATIVE); Oxycodone Screen Urine NEGATIVE (NEGATIVE); Phencyclidine Screen Urine NEGATIVE (NEGATIVE); Tricyclic Antidepressant Urine NEGATIVE (NEGATIVE)
[2024-07-26 10:09] LABS: Uric Acid, Urine 52.3 mg/dL (Not Estab.)
== END 2024-07-25 13:14 | disposition home or self-care (01) ==
LOC: LAB 13:15
PROVIDERS: PCP Nurse Practitioner Family; Visit Provider Nurse Practitioner Family
DX: Z79.899 Other long term (current) drug therapy (principal)
CPT/HCPCS: 80307; 80326; 80331; 80334; 80337; 80338; 80341; 80344; 80347; 80348; 80353; 80354; 80355; 80357; 80358; 80359; 80360; 80361; 80364; 80365; 80366; 80367; 80368; 80370; 80371; 80372; 80373; 80377; 82570; 83992; 84560

== ENCOUNTER 2024-12-23 15:27 | Outpatient (OUT) | payer OTHER, SELFPAY ==
--- OUTSIDE RECORDS SUMMARY | 2024-07-31 17:08 | XMS_ITS ---
Author Name Auto Generated Organization OHIP Care Team Providers Care Hurl Shaker Name Role Phone Deniz Okeefe Admitting Unavailable Provider, None Primary Care Unavailable Deniz Okeefe Attending Unavailable KRANTHI ACHARYA Attending Unavailable KRANTHI ACHARYA Admitting Unavailable Provider, None Primary Care Unavailable PROBLEMS No Problem Records Found PROCEDURES No Procedure Records Found RESULTS CODING SUMMARY Observed: 08/05/2024 1:24 PM Status: F Source: [facility] HTMLBase 64 [id number] ZXJu [file] [id number]== EMPLOYEE HEALTH NOTE Observed: 3:53 PM Status: F Source: [facility] [id number]#1.00OTGTIFF CODING SUMMARY Observed: 05/03/2024 12:20 PM Status: F Source: [facility] HTMLBase 64 [id number] ZXJu [file] [id number]= PATIENT HANDOUT Observed: 04/25/2024 5:37 PM Status: C Source: [facility] Patient Education Materials Follows: ED PATIENT SUMMARY Observed: 04/25/2024 5:37 PM Status: F Source: [facility] ? Urgent [address] [place] [address] PATIENT DISCHARGE INSTRUCTIONS Patient Information Name: TORREY GAYLE Age: 33 Years Date of : 1990 Reason For Visit: Medical screening exam; [facility] F/U - LEFT ARM INJURY Arrival Time: 04/25/2024 16:23:07 Primary Care Physician: Rajeev, Nicolette Attending Physician: KRANTHI ACHARYA Comment: Patient Education With: Address: When: Return to this practice Comments: as scheduled in 3 months Medication Information: The exam and treatment you received today in the [facility] Emergency Department were for an urgent problem and are not intended as complete care. It is important for you to follow up with a doctor, nurse practitioner, or physician?s programs assistant for ongoing care. If your symptoms [...] so we can reach you if necessary. [facility] Emergency Department has provided you with a complete list of medications post discharge. Please inform your laminating press operator/provider of your visit and for further instruction on these medications. Any specific questions regarding your chronic medications and dosages should be discussed with your primary care physician(s) and/or pharmacist. Additional medications on your home medication list not specifically addressed. Please contact the ordering physician if you have questions about these medications. amphetamine-dextroamphetamine (amphetamine-dextroamphetamine 15 mg oral tablet) 1 tab(s) Oral [...] Left wrist sprain (S63.502A) Medical screening exam ([id number]) Other synovitis and tenosynovitis, left hand (M65.842) [...] legal documents Reason for Visit: Medical exam- [facility] -to establish with new POR, initial [...] for Disease Control and Prevention February 2014 ED CLINICAL SUMMARY Observed: 04/25/2024 5:37 PM Status: F Source: [facility] ? Urgent C are [address] [place] [address] Clinical Summary PERSON INFORMATION Name: TORREY GAYLE Age: 33 Years Sex: FEMALE : 1990 MRN: Acct#: Visit Reason: Medical screening exam; [facility] F/U - LEFT ARM INJURY Arrival: 04/25/2024 16:23:07 Discharge: 04/25/2024 17:25:00 LOS: 000 01:02 Check In: 04/25/2024 16:23:07 Checkout: 04/25/2024 17:25:00 Address: [address] [place] [address] PCP: Provider, None PROVIDER INFORMATION Provider Role Assigned Unassigned Deniz Okeefe PA-C ED PA 04/25/2024 16:26:05 Nitesh ALEGRIA, Amanda ED Nurse 04/25/2024 16:34:34 VITALS INFORMATION [...] tenosynovitis, left hand Patient Understands: Yes - Patient/family/caregiver verbalizes understanding of instructions given Comment: URGENT CARE RECORD Observed: 04/25/2024 5:20 PM Status: C Source: [facility] ? Urgent C are [address] [place] [address] PATIENT DISCHARGE INSTRUCTIONS Patient Information Name: TORREY GAYLE Age: 33 Years Date of : 1990 Reason For Visit: Medical screening exam; [facility] F/U - LEFT ARM INJURY Arrival Time: 04/25/2024 16:23:07 Primary Care Physician: Provider, None Attending Physician: KRANTHI ACHARYA Comment: Visit Diagnosis: Diagnoses This Visit Cellulitis of left upper limb (L03.114) De Quervain's tenosynovitis, left (M65.4) Disorder of left radial nerve (G56.32) Lateral epicondylitis of left elbow (M77.12) Left wrist sprain (S63.502A) Medical screening exam ([id number]) Other synovitis and tenosynovitis, left hand (M65.842) [...] and treatment you received today in the [facility]gent [place] Emergency Department were for an urgent problem and are not intended as complete care. It is important for you to follow up with a doctor, nurse practitioner, or physician?s programs assistant for ongoing care. If your symptoms [...] of medications post discharge. Please inform your laminating press operator/provider of your visit and for further instruction on these medications. Any specific questions regarding your chronic medications and dosages should be discussed with your primary care physician(s) and/or pharmacist. Additional medications on your home medication list not specifically addressed. Please contact the ordering physician if you have questions about these medications. amphetamine-dextroamphetamine (amphetamine-dextroamphetamine 15 mg oral tablet) 1 tab(s) Oral [...] for Disease Control and Prevention February 2014 URGENT CARE NOTE- PROVIDER Observed: 01/2024 4:26 PM Status: F Source: [facility] Patient: TORREY GAYLE MARCIN VALVERDE Age: 33 years Sex: FEMALE : 1990 Associated Diagnoses: Disorder of left radial nerve; Cellulitis of left upper limb; De Quervain's tenosynovitis, left; Other synovitis and tenosynovitis, left hand; Lateral epicondylitis of left elbow; Left wrist sprain Author: Deniz Okeefe PA-C History of Present Illness OCCUPATIONAL HEALTH FOLLOW-UP Date of injury: 04/07/2019 Claim #: [id number] Employer: [place] Mechanism of Injury: Turning a patient and [...] record is no longer practicing at the [facility]. 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 She was referred to Dr. Phelps with persisting symptoms. She had injections which were not particularly helpful and then proceeded to have 2 surgeries. She has now been seeing pain management for the past 2 years in [place]. She has tried PT, creams, injections, medications including OTC Motrin/Tylenol, Lyrica, Neurontin, muscle relaxers and Mobic/Celebrex all without good relief and so she takes no medications for this. She states her most recent testing was a bone scan done on 04/03 in [place] and it was reported as normal. 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 With this she reports elbow pain seems [...] auscultation bilaterally without rales, rhonchi or wheeze. EXTREMITIES: Generalized TTP of the left upper extremity, axilla on down. No particular bony TTP, fair ROM without too much difficulty. No cyanosis, clubbing or obvious edema noted. Good muscle tone. Brisk cap refill distally, radial pulses 2+ bilaterally. SKIN: There is a purplish hue to the left upper extremity that is different than the right. The extremity is cooler to the touch than the right. Otherwise normal inspection, no visualized rash. NEUROLOGIC: Light touch sensation currently in tact, strength diminished on the left secondary to pain. Normal mentation. No focal neurological deficits appreciated. PSYCHIATRIC: Mood and affect appropriate. Medical Decision Making Await pain management visit scheduled for 05/[address] Whitaker. Bone scan was normal. She meets [place] criteria however for CRPS. 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 MEDCO updated. For now I will see her back in 3 months. We could consider a second opinion ortho consult and/or second opinion pain management consult, but will hold on both for now. Additional condition of CRPS may be appropriate in the near future. I feel with a reasonable degree of medical certainty that she has developed CRPS as a flow through injury related to her occupational injury on 04/07/19. MEDCO updated, but she can continue to function full duty with her current employer. [place] paperwork is filled out as well to allow her time away from work for [employer]. Return with new, or worsening symptoms, or symptoms failing to improve as expected and the patient voiced their understanding. Questions answered. Follow-up here as discussed in 3 months, sooner if needed. Impression and Plan Diagnosis Disorder of left radial nerve (HYZ74-AB G56.32, Discharge, Medical) Cellulitis of left upper limb (LOJ91-YB L03.114, Discharge, Medical) De Quervain's tenosynovitis, left (ASV70-OL M65.4, Discharge, Medical) Other synovitis and tenosynovitis, left hand (ZHD80-LN M65.842, Discharge, Medical) Lateral epicondylitis of left elbow (TKS00-YD M77.12, Discharge, Medical) Left wrist sprain (SJL99-VQ S63.502A, Discharge, Medical) Plan Condition: Stable. Disposition: Discharged: Time 04/25/2024 17:19:00, to home. Follow up with: ; Return to this practice as scheduled in 3 months. Counseled: Patient, Regarding diagnosis, Regarding treatment plan, Patient indicated understanding of instructions. [Electronically Signed on: 04/29/2024 11:09 EST] Deniz Okeefe PA-C[Verified on: 04/29/2024 11:09 EST] Deniz Okeefe PA-C EMPLOYEE HEALTH NOTE Observed: 4 3:52 PM Status: F Source: [facility] [id number]#1.00OTGTIFF EMPLOYEE HEALTH NOTE Observed: 4 3:55 PM Status: F Source: [facility] [id number]#1.00OTGTIFF EMPLOYEE HEALTH NOTE Observed: 4 3:50 PM Status: F Source: [facility] [id number]#1.00OTGTIFF EMPLOYEE HEALTH NOTE Observed: 4 3:48 PM Status: F Source: [facility] [id number]#1.00OTGTIFF EMPLOYEE HEALTH NOTE Observed: 4 3:46 PM Status: F Source: [facility] [id number]#1.00OTGTIFF EMPLOYEE HEALTH NOTE Observed: 4 3:43 PM Status: F Source: [facility] [id number]#1.00OTGTIFF EMPLOYEE HEALTH NOTE Observed: 4 3:27 PM Status: F Source: [facility] [id number]#1.00OTGTIFF EMPLOYEE HEALTH NOTE Observed: 4 3:41 PM Status: F Source: [facility] [id number]#1.00OTGTIFF ALLERGIES DATE TYPE / CODE NAME / CODE REACTION SEVERITY SOURCE Drug/[id number](SNOMED CT) No known allergies [facility] ENCOUNTERS ADMIT/DISCHARGE ACCOUNT NUMBER ADMITTING ENCOUNTER CLASS LOCATION SOURCE 07/31/2024 [id number] [facility]iz [facility]keefe [facility] URGENT CARERoom: UCBed: 4 [facility] 04/25/2024/ [id number] KRANTHI ACHARYA [facility] URGENT CARERoom: [facility] PAYERS ENCOUNTER GUARANTOR PAYER SUBSCRIBER SOURCE 07/31/2024 [facility]Y [facility]MAÑA [facility] [id number] [address] [address]Gfv: (HP) Primary Insurance:[facility] Number: [id number] Date:[id number] Name:Worker's CompPO [address], [place] [address]IY: 614 TORREY UMAÑA [place]: [id number] [address] [address]Dog: (HP) (WP) [facility] 04/25/2024 TORREY UMAÑA BETINAB: [id number] [address] [address]Yxk: (HP) Primary Insurance:[facility] Kasandra Number: [id number] Date:[id number] Name:Worker's CompPO [address], [place] [address]GY: 614 TORREY CHASIDY [facility]: [id number] [address] [address]Yct: (HP) (WP) [facility]
--- OUTSIDE RECORDS SUMMARY | 2024-10-30 11:45 | XMS_ITS ---
Author Organization [facility] in [place] Address [address] [place] [address] Care Team Providers Care Office Spec Name Role Phone Tiki Zheng Primary Care Provider Allergies Allergen (clinical drug ingredient) Drug/Non Drug Allergy documented on EMR Reaction Allergy Type Onset Date Status Bee Sting hives Allergy Active Penicillin hives Drug Allergy Active REASON FOR VISIT Presents to office for 6 month med check, CSA updated Medications Medication SIG (Take, Route, Frequency, Duration) Notes Start Date End Date Status Nurtec 75 MG 1 tablet on the tongue and allow to dissolve Orally daily as needed for 30 days PRN Active EpiPen 2-Dorian 0.3 MG/0.3ML as directed Injection PRN Active Adderall 15 MG 1 tablet Orally Daily for 30 days 10/30/2024 Active Ondansetron HCl 4 MG 1 tablet Orally Once a day prn for 30 days 08/14/2023 Active Ozempic (0.25 or 0.5 MG/DOSE) 2 MG/3ML 0.25 Subcutaneous once weekly for 30 days Compounded Version 04/03/2023 Not-Taking Desvenlafaxine Succinate ER 25 MG TAKE 1 TABLET BY MOUTH EVERY DAY FOR 30 DAYS for 30 Active Social History Tobacco Use: Social History Observation Description Date Details (start date - stop date) Never Smoker NA - NA Tobacco Use/Smoking Question Answer Notes Patient is a nonsmoker AUDIT-C (Standard) Question Answer Notes Did you have a drink containing alcohol in the p ast year? No Points 0 Interpretation Negative Vital Signs Weight 141.8 lbs 10/30/2024 Height 66 in 10/30/2024 BMI 22.88 kg/m2 10/30/2024 Encounters Encounter Location Date Provider Diagnosis [facility] [address] [place] [address] 10/30/2024 Tiki Norm Unable to concentrat e R41.840 and Migraine G43.909 Assessments Encounter Date Diagnosis (ICD Code) Assessment Notes Treatment Notes Treatment Clinical Notes Section Notes 10/30/2024 Unable to concentrate (ICD-10 - R41.840) CSA signed, OARRS reviewed adderall helps at work wants to continue 6m fu 10/30/2024 Migraine (ICD-10 - G43.909) med helps needs refill Plan Of Treatment Medication Medication Name Sig Start Date Stop Date Notes Nurtec 75 MG 1 tablet on the tong ue and allow to dissolve Orally daily as needed for 30 days PRN Adderall 15 MG 1 tablet Orally Daily for 30 days Treatment Notes Assessment Notes Unable to concentrate CSA signed, OARRS reviewed adderall helps at work wants to continue 6m fu Migraine med helps needs refi ll Next Appt Details Follow Up: 6 Months,prn, [place] son: Progress Notes * Joy GAYLE PDOB:1990 (33 yo F)Acc No.[id number]:10/30/2024 Progress Note Patient: Joy LOPEZ Provider: Wil Zheng ([facility]), BAG WASHER :1990 A ge:33 Y S ex:Female Date:10/30/2024 Address:[address] [place], [place] [id number] Check In:03:38 PM ESTCheck O ut:03:59 PM EST Subjective: * Chief Complaints: * 1 . Presents to office for 6 month med check. 2. CSA updated. 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 * ROS: G eneral/Constitutional: Fever d enies. H eadache d enies. W eight loss?denies. O phthalmologic: Discharge d enies. E ye Pain d enies. I tching and redness d enies. E NT: Nasal discharge d enies. N armani congestion d enies.?Sore throat d enies. C ardiovascular: Chest tightness/ heavy pressure d enies. R apid heart rate d enies. S welling of extremities d enies. C hest pain d enies. ? R espiratory: Productive cough d enies. C hest pain d enies. C ough d enies. S hortness of breath d enies. W heezing d enies. ? G astrointestinal: Abdominal pain d enies. C onstipation d enies. D ecreased appetite d enies. D iarrhea d enies. N ausea d enies. V omiting?denies. G enitourinary: Urinary incontinence d enies. P ainful urination d enies. M usculoskeletal: Back pain d enies. N davon pain d enies. M uscle aches d enies. S kin: Rash d enies. S kin lesion(s) d enies. ? 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 gregs, not elsewhere classified Modified On:10/02/2022 Status:confirmed J34.89 Other specified diso rders of nose and nasal sinuses Modified On:10/02/2022 Status:confirmed R53.83 Fatigue Modified On:01/30/2023 Status:confirmed G43.909 Migraine Modified On:01/30/2023U Status:confirmed L65.9 Hair loss Modified On:10/02/2022U Status:confirmed R55 Near syncope Modified On:10/02/2022U Status:confirmed G25.81 Restless legs Modified On:10/02/2022U Status:confirmed M54.2 Neck pain on right s silvia Modified On:10/02/2022U Status:confirmed F41.8 Anxiety and depressi on Modified On:12/22/2022 Status:confirmed U07.1 COVID-19 virus infec tion Modified On:10/02/2022/U Status:confirmed R41.840 Unable to concentrat e Modified On:06/12/2023/U Status:confirmed E66.09 Other obesity due to excess calories Modified On:01/30/2023/U Status:confirmed Z68.30 Body mass index [BMI ] 30.0-30.9, adult Modified On:01/30/2023/U Status:confirmed R13.10 Difficulty swallowin g Modified On:07/31/2023/U Status:confirmed * Medical History: N davon pain on right side, Overweight, Gastritis, Subarachnoid cyst, COVID-19 virus infection, Cellulitis of left arm, Other specified disorders of nose and nasal sinuses, Cough, unspecified, Hives, Hair loss, Near syncope, Bee sting allergy, Paresthesia, Restless legs, Fear of flying, Weight gain, External otitis of left ear, Acute sinusitis, Rash, Unable to concentrate, Other disorders of meninges, not elsewhere classified, Fatigue, Diarrhea, Nausea & vomiting, Urinary tract infection, Anxiety and depression, Migraine. * Surgical History: H ysterectomy 2020, Right Ovary removed 2019, Left arm surgeryx2 , D&C for endometriosis , Ablation T6,T7,T8 & T9 12/06/22. * Hospitalization/Major Diagno stic Procedure: s ee above . * Family History: F ather: alive 57 yrs, Hypercholesterolemia, diagnosed with Diabetes mellitus without mention of complication, type II or unspecified type, not stated as uncontrolled, Unspecified essential hypertension. M other: alive 57 yrs, thyroid disease, diagnosed with Unspecified essential hypertension. B darline(s): alive 35 yrs, Drug Abuse, ADHD. D eric(s): alive 10 yrs, ADHD. P aternal Grandfather: stroke. M aternal Grandfather: Heart Attack. 1 brother(s) . 1 daughter(s) . . * Social History: T obacco Use: T obacco Use/Smoking P atient is a n onsmoker D rug/Alcohol: A RAYSHAWN-C (Standard) D id you have a drink containing alcohol in the past year? N o P oints 0 I nterpretation N egative * Medications: T aking Adderall(Amphetamine-Dextroamphetamine) 15 MG Tablet 1 tablet Orally Daily , Taking Desvenlafaxine Succinate ER 25 MG Tablet Extended Release 24 Hour TAKE 1 TABLET BY MOUTH EVERY DAY FOR 30 DAYS , Taking EpiPen 2-Dorian(EPINEPHrine) 0.3 MG/0.3ML Solution Auto-injector as directed Injection , Notes to Pharmacist: PRN, Taking Nurtec(Rimegepant Sulfate) 75 MG Tablet Disintegrating 1 tablet on the tongue and allow to dissolve Orally daily as needed , Notes to Pharmacist: PRN, Taking Ondansetron HCl 4 MG Tablet 1 tablet Orally Once a day prn , Not-Taking/PRN Ozempic (0.25 or 0.5 MG/DOSE)(Semaglutide(0.25 or 0.5MG/DOS)) 2 MG/3ML Solution Pen- injector 0.25 Subcutaneous once weekly , Notes to Pharmacist: Compounded Version, Medication List reviewed and reconciled with the patient * Allergies: P enicillin: hives, Bee Sting: hives - Criticality High. Objective: * Vitals: W t:141.8lbs, Ht: 66 in, BMI:22.88Index, Ht-cm: 167.64 cm, Wt-k.32 kg. * Examination: G eneral Examinations: GENERAL APPEARANCE: a lert and oriented, i n no acute distress. EYES: c onjunctiva normal, sclera non-icteric. LUNGS: c lear to auscultation bilaterally. CARDIO: r egular rate and rhythm, S1, S2 normal. ABDOMEN: s oft, nontender. MUSCULOSKELETAL: G ait and station normal. SKIN: w arm and dry. Assessment: * Assessment: 1. U nable to concentrate - R41.840 (Primary) 2 . M igraine - G43.909 ? Plan: * Treatment: 2. M igraine Refill Nurtec Tablet Disintegrating, 75 MG, 1 tablet on the tongue and allow to dissolve, Orally, daily as needed, 30 days, 8, Refills 11, Notes to Pharmacist: PRN. 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
--- OUTSIDE RECORDS SUMMARY | 2024-12-22 06:35 | XMS_ITS ---
Author Organization [facility] in [place] Address [address] [place] [address] Care Team Providers Care Tube Machine Operator Name Role Phone Tiki Zheng Primary Care Provider REASON FOR VISIT DOA Encounters Encounter Location Date Provider Diagnosis [facility] [address] [place] [address] 12/22/2024 Tiki Zheng Encounter for long-term (current) drug use Z79.899 Assessments Encounter Date Diagnosis (ICD Code) Assessment Notes Treatment Notes Treatment Clinical Notes Section Notes 12/22/2024 Encounter for long-term (current) drug use (ICD-10 - Z79.899) Plan Of Treatment Pending Test Test Name Order Date URINE URIC ACID,RANDOM 12/22/2024 COMPLIANCE DRUG SCREEN 12/22/2024 DRUG SCREEN RAPID (URINE) 12/22/2024 Progress Notes * Joy GAYLE PDOB:1990 (33 yo F)Acc No.[id number]:12/22/2024 Patient: Marti Joy CARCAMO :1990 A ge:33 Y S ex:Female Address:[address] [place] [address] , [place], [address] Subjective: * Chief Complaints: * D OA * Medical History: * Surgical History: * Hospitalization/Major Diagno stic Procedure: * Medications: Objective: * Vitals: * Physical Examination: Assessment: * Assessment: 1. E ncounter for long-term (current) drug use - Z79.899 (Primary) Plan: * Treatment: * Procedure Codes: * true * Date: Generated for Marshal damon/Tadeo/Kris on: 0 12/23/2024 03:30 PM EDT
--- OUTSIDE RECORDS SUMMARY | 2024-12-23 15:31 | XMS_ITS | Patient Health Record ---
Author Organization [facility] in [place] Address [address] [place] [address] Care Team Providers Care Upset Welding Machine Operator Name Role Phone Tiki Zheng Primary Care Provider Addi Grajeda [phone] Allergies Allergen (clinical drug ingredient) Drug/Non Drug Allergy documented on EMR Reaction Allergy Type Onset Date Status Bee Sting hives Allergy Active Penicillin hives Drug Allergy Active Results Component Value Reference Range Notes CBC AUTO DIFF Reviewed date:06/24/2024 08:39:08 AM Interpretation: Performing Lab: Notes/Report: [facility] , White Blood Count 5.6 4.0-11.0 10 3/uL Red Blood Count 4.37 4.20-5.40 10 6/uL Hemoglobin 13.5 12.0-16.0 g/dL Hematocrit 39.7 36.0-48.0 % Mean Corpuscular Volume 90.8 81.0-99.0 fL Mean Corpuscular Hemoglobin 30.9 26.7-34.0 pg Mean Corpuscular HGB Conc 34.0 29.9-35.2 g/dL Red Cell Distribution Width 13.2 11.0-15.0 % Platelet Count 187 150-450 10 3/uL Mean Platelet Volume 11.9 9.5-13.5 fL Neutrophils Percent Auto 60.4 43.0-75.0 % Lymphocytes Percent Auto 30.8 20.5-60.0 % Monocytes Percent Auto 7.0 1.7-12.0 % Eosinophils Percent Auto 1.1 0.9-7.0 % Basophils Percent Auto 0.2 0.2-2.0 % Immature Granulocytes Pct Auto 0.5 0.0-0.5 % Neutrophils Absolute Auto 3.4 1.4-6.5 10 3/uL Lymphocytes Absolute Auto 1.7 1.2-3.8 10 3/uL Monocytes Absolute Auto 0.4 0.3-0.8 10 3/uL Eosinophils Absolute Auto 0.1 0.0-0.7 10 3/uL Basophils Absolute Auto 0.0 0.0-0.1 10 3/uL Immature Granulocytes Abs Auto 0.03 0.00-0.03 10 3/uL Performing Lab: see note - [facility] LB LACTATE or LACTIC ACID Reviewed date:06/24/2024 08:39:08 AM Interpretation: Performing Lab: Notes/Report: [facility] , Lactate/Lactic Acid 0.9 0.4-2.0 mmol/L Performing Lab: see note [facility] LB PROF 14(COMP METB) Reviewed date:06/24/2024 08:39:08 AM Interpretation: Performing Lab: Notes/Report: [facility] , Sodium 143 136-145 mmol/L Potassium 3.3 3.5-5.1 mmol/L Chloride 106 98-107 mmol/L Carbon Dioxide 26.6 21.0-32.0 mmol/L Anion Gap 13.7 Glucose 84 74-106 mg/dL Blood Urea Nitrogen 14.0 7.0-18.0 mg/dL Creatinine 0.83 0.55-1.02 mg/dL Estimated GFR ( Chelita >60 >=60 mL/min/1.73m 2 Estimated GFR (Non- Anum >60 >=60 mL/min/1.73m 2 BUN Creatinine Ratio 16.9 Calcium 8.7 8.5-10.1 mg/dL Bilirubin Total 0.4 0.2-1.0 mg/dL Aspartate Amino Transferase 10 15-37 U/L Alanine Aminotransferase 18 14-59 U/L Alkaline Phosphatase 61 46-116 U/L Total Protein 6.6 6.4-8.2 g/dL Albumin Level 3.5 3.4-5.0 g/dL Globulin 3.1 Albumin Globulin Ratio 1.1 Performing Lab: see note - [facility] LB CT abdomen pelvis w con Reviewed date:06/24/2024 08:39:08 AM Interpretation: Performing Lab: Notes/Report: Source Facility: [address] [address] [address] Scan Report Signed Patient: JOY GAYLE MR#: [id number] : 1990 Acct:[id number] Age/Sex: 33 / F ADM Date: 06/23/24 Loc: ER Attending Dr: Ordering Physician: Luna Valentin Date of Service: 06/23/24 Procedure(s): CT abdomen pelvis w con Accession Number(s): [id number] cc: TIKI ZHENG [place] [address] Patient Name: JOY GAYLE MRN: [id number] date: 1990 Sex: F Assigned Patient Location: ER Current Patient Location: ER Accession/Order Number: [id number] Exam Date: 06/23/2024 22:13 Report Date: 06/23/2024 22:57 At the request of: LUNA VALENTIN Procedure: CT abdomen pelvis w con CT ABDOMEN AND PELVIS WITH CONTRAST: INDICATION: diarrhea, abd pain. COMPARISON: None. TECHNIQUE:Multiple thin section transaxial slices were acquired through the abdomen and pelvis with intravenous contrast. Coronal and sagittal reconstructed images were reviewed. Oral contrastWas not administered. FINDINGS: LOWER CHEST: The lower chest is unremarkable. LIVER: The liver is unremarkable. GALLBLADDER AND BILIARY SYSTEM: No obvious ductal dilation. No calcified stones. SPLEEN: The spleen is unremarkable. PANCREAS: The pancreas is unremarkable. ADRENAL GLANDS: The adrenal glands are unremarkable. KIDNEYS AND URETERS: There is no hydronephrosis of the kidneys.No obstructing urologic calcifications are present. VASCULATURE: Vascularity is unremarkable. PERITONEUM/RETROPERITONEUM: There is a small amount of free fluid within the pelvis. There is no free air. LYMPH NODES: No suspicious lymphadenopathy. GASTROINTESTINAL TRACT: The bowel is normal in caliber.Circumferential wall thickening is present in multiple loops of small bowel in the upper abdomen concerning for enteritis. There are no acute inflammatory changes present in the colon.The appendix is visualized and is not inflamed. BLADDER: The urinary bladder is unremarkable. REPRODUCTIVE SYSTEM: There is an involuting follicle in the left ovary measuring 1.5 cm. BODY WALL: There is a tiny fat-containing umbilical hernia. BONES: Osseous structures are unremarkable. CT/CT abdomen pelvis w con IMPRESSION: Diffuse circumferential wall thickening associated with multiple loops of small bowel in the abdomen concerning for enteritis. Electronically authenticated by: FLAQUITA GRACE Date: 06/23/2024 22:57 Dictated By: Flaquita Grace M.D. Signed By: 06/23/242258 DD/ 56 TD/TT: Retirement Officer: [place] [address] CT Scan Report Signed Patient: JOY GAYLE MR#: [id number] : 1990 Acct:[id number] Age/Sex: 33 / F ADM Date: 06/23/24 Loc: ER Attending Dr: Ordering Physician: Luna Valentin Date of Service: 06/23/24 Procedure(s): CT abdomen pelvis w con Accession Number(s): [id number] cc: TIKI ZHENG [place] [id number] Patient Name: JOY GAYLE MRN: [id number] date: 1990 Sex: F Assigned Patient Location: ER Current Patient Location: ER Accession/Order Number: [id number] Exam Date: 06/23/2024 22:13 Report Date: 06/23/2024 22:57 At the request of: LUNA VALENITN Procedure: CT abdome n pelvis w con CT ABDOMEN AND PELVI S WITH CONTRAST: INDICATION: diarrhea , abd pain. COMPARISON: None. TECHNIQUE:Multiple thin section transaxial slices were acquired through the abdomen and pelvis with intravenous contrast. Coronal and sagittal reconstructed images were reviewed. Oral contrastWas not administered. FINDINGS: LOWER CHEST: The low er chest is unremarkable. LIVER: The liver is unremarkable. GALLBLADDER AND BILIARY SYSTEM: No obvious ductal dilation. No calcified stones. SPLEEN: The spleen i s unremarkable. PANCREAS: The pancre as is unremarkable. ADRENAL GLANDS: The adrenal glands are unremarkable. KIDNEYS AND URETERS: There is no hydronephrosis of the kidneys.No obstructing urologic calcifications are present. VASCULATURE: Vascularity is unremarkable. PERITONEUM/RETROPERI TO NEUM: There is a small amount of free fluid within the pelvis. There is no free air. LYMPH NODES: No suspicious lymphadenopathy. GASTROINTESTINAL TRACT: The bowel is normal in caliber.Circumferentia l wall thickening is presen t in multiple loops of small bowel in the upper abdomen concerning for enteritis. There are no acute inflammatory changes present in the colon.The append ix is visualized and is not inflamed. BLADDER: The urinary bladder is unremarkable. REPRODUCTIVE SYSTEM: There is an involuting follicle in the left ovary measuring 1.5 cm. BODY WALL: There is a tiny fat-containing umbilical hernia. BONES: Osseous structures are unremarkable. CT/CT abdomen pelvis w con IMPRESSION: Diffuse circumferential wall thickening associated with multiple loops of small bowel in the abdomen concerning for enteritis. Electronically authenticated by: FLAQUITA GRACE Date: 06/23/2024 22:57 Dictated By: Flaquita Grace M.D. Signed By: 06/23/249 DD/ 56 TD/TT: Retirement Officer: GLYCOHEMOGLOBIN A1C Reviewed date:07/10/2024 03:06:13 PM Interpretation: Performing Lab: Notes/Report: [facility] , Glycohemoglobin A1C 4.7 4.5-6.2 % ACTION SUGGESTED ADA RECOMMENDED LIMIT 4.0 - 6.0 ADA THERAPEUTIC TARGET < 7.0 > 7.0 Estimated Average Glucose 88 Performing Lab: see note - [facility] LB INSULIN Reviewed date:07/11/2024 09:38:29 AM Interpretation: Performing Lab: Notes/Report: [facility] , Insulin 9.5 2.6-24.9 uIU/mL [address] [place], [place] [id number] Performed at: [facility] Friction Welding Machine Operator: Claudio Lozano PhD, Phone: [phone] Performing Lab: see note - [facility] LB Compliance Drug Analysis, Ur Reviewed date:08/04/2024 10:35:45 AM Interpretation: Performing Lab: Notes/Report: [facility] , Summary Report (Summary) FINAL . cannabidiol (CBD) products. This test is not intended to Acetaminophen PRESENT UNEXPECTED Declared Medications: Drug Present not Declared for Prescription Verification of THC is most commonly herbal marijuana or marijuana-based Friction Welding Machine Operator: Aleksandra Shoaib [facility], Phone: [phone] inaccuracies in the declared medications. Amphetamine 5492 EXPECTED ng/mg creat Creatinine 153 mg/dL >=20 Amphetamine (Adderall) ygeuk-4-ebxisjlcgpmssvjxyd ol. Carboxy-THC is a metabolite of tetrahydrocannabinol (THC). Source medication. Trace amounts of THC can be present in hemp and Metoprolol PRESENT UNEXPECTED For clinical consultation, please call . following declared medications. Unexpected results may arise from [address] [place] [phone] distinguish between yiolj-4-wmehkhwjdzqwmetbag ol, the predominant Test Result Flag Units Ref Range Salicylate PRESENT UNEXPECTED TOXASSURE COMP DRUG ANALYSIS,UR Drug Present and Declared for Prescription Verification Carboxy-THC 14 UNEXPECTED ng/mg creat Performed at: [email or web address] form of THC in most herbal or marijuana-based products, and Note: The testing scope of this panel includes these medications: products, but THC is also present in a scheduled prescription Amphetamine is available as a schedule II prescription drug. The flagging and interpretation on this report are based on the Test Result Flag Units Performing Lab: see note LC - [facility] LB US breast RT limited Reviewed date:06/20/2024 02:57:26 PM Interpretation: Performing Lab: Notes/Report: Source Facility: [place] [address] [place] [address] Ultrasound Report Signed Patient: JYO GAYLE MR#: [id number] : 1990 Acct:[id number] Age/Sex: 33 / F ADM Date: 06/19/24 Loc: MAMMO Attending Dr: TIKI ZHENG Ordering Physician: TIKI ZHENG Date of Service: 06/19/24 Procedure(s): US breast RT limited Accession Number(s): [id number] cc: TIKI ZHENG Patient Name: JOY GAYLE MR#: [id number] : 1990 Exam Date: 06/19/2024 Ordering Doctor: TIKI ZHENG [facility] RADIOLOGY REPORT PROCEDURE: MM TOMOSYNTHESIS DIAGNOSTIC BI, 06/19/2024, 13:51 US BREAST RT LIMITED, 06/19/2024, 14:09 COMPARISON: None. INDICATIONS: Breast Lump Calculator Name NCI Breast Cancer Risk Assessment Tool 5 Year Breast Cancer Risk Not Applicable. Lifetime Breast Cancer Risk Not Applicable. Personal Breast Cancer No Personal Ovarian Cancer No Treatments None Family Cancers Grandmother-maternal with ovarian cancer at age 65. LOCATION: [facility] BREAST COMPOSITION: The breasts are heterogeneously dense,which may obscure small masses. FINDINGS: DIAGNOSTIC CATEGORY 2--BENIGN FINDING. NO CHANGE FROM COMPARISON. RIGHT BREAST: No significant suspicious finding. The right breast is asymmetrically enlarged compared to the left with significant increase in fibroglandular density. No focal architectural distortion or suspicious calcifications. Ultrasound demonstrates heterogeneous fibroglandular tissue with no focal mass. LEFT BREAST: No significant suspicious finding. RECOMMENDATIONS: CLINICAL EVALUATION. PLEASE NOTE: A NORMAL MAMMOGRAM DOES NOT EXCLUDE THE POSSIBILITY OF BREAST CANCER. A CLINICALLY SUSPICIOUS PALPABLE LUMP SHOULD BE BIOPSIED. Dictated by: Mauro Posadas MD on 06/19/2024 at 14:30 Approved by: Mauro Posadas MD on 06/19/2024 at 14:33 Dictated By: Mauro Posadas M.D. Signed By: 06/19/24 1435 DD/ 143 TD/TT: Retirement Officer: [place] [address] Ultrasound Report Signed Patient: JOY GAYLE MR#: [id number] : 1990 Acct:[id number] Age/Sex: 33 / F ADM Date: 06/19/24 Loc: MAMMO Attending Dr: TIKI ZHENG Ordering Physician: TIKI ZHENG Date of Service: 06/19/24 Procedure(s): US breast RT limited Accession Number(s): [id number] cc: TIKI ZHENG Patient Name: JOY GAYLE MR#: [id number] : 1990 Exam Date: 06/19/2024 Ordering Doctor: TIKI ZHENG [facility] RADIOLOG[facility] REPORT PROCEDURE: MM TOMOSYNTHESIS DIAGNOSTIC BI, 06/19/2024, 13:51 US BREAST RT LIMITED , 06/19/2024, 14:09 COMPARISON: None. INDICATIONS: Breast Lump Calculator Name NCI Breast Cancer Risk Assessment Tool 5 Year Breast Cancer Risk Not Applicable. Lifetime Breast Canc er Risk Not Applicable. Personal Breast Canc er No Personal Ovarian Cancer No Treatments None Family Cancers Grandmother-maternal with ovarian cancer at age 65. LOCATION: [facility] BREAST COMPOSITION: The breasts are heterogeneously dense,which may obscure small masses. FINDINGS: DIAGNOSTIC CATEGORY 2--BENIGN FINDING. NO CHANGE FROM COMPARISON. RIGHT BREAST: No significant suspicious finding. The right breast is asymmetrically enlarged compared to the left with significant increase in fibroglandular density. No focal architectural distortion or suspicious calcifications. Ultrasound demonstrates heterogeneous fibroglandular tissue with no focal mass. LEFT BREAST: No significant suspicious finding. RECOMMENDATIONS: CLINICAL EVALUATION. PLEASE NOTE: A DEANDRE L MAMMOGRAM DOES NOT EXCLUDE THE POSSIBILITY OF BREAST CANCER. A CLINICALLY SUSPICIOUS PALPABLE LUMP SHOULD BE BIOPSIED. Dictated by: Mauro Posadas MD on 06/19/2024 at 14:30 Approved by: Mauro Posadas MD on 06/19/2024 at 14:33 Dictated By: Mauro Posadas M.D. Signed By: 06/19/24 1435 DD/ 1433 TD/TT: Retirement Officer: MM tomosynthesis diagnostic BI Reviewed date:06/20/2024 02:57:18 PM Interpretation: Performing Lab: Notes/Report: Source Facility: [place] [address] [place] [address] Mammography Report Signed Patient: JOY GAYLE MR#: [id number] : 1990 Acct:[id number] Age/Sex: 33 / F ADM Date: 06/19/24 Loc: MAMMO Attending Dr: TIKI ZHENG Ordering Physician: TIKI ZHENG Results: Date of Service: 06/19/24 Follow Up: Procedure(s): MM tomosynthesis diagnostic BI Accession Number(s): [id number] cc: TIKI ZHENG Patient Name: JOY GAYLE MR#: [id number] : 1990 Exam Date: 06/19/2024 Ordering Doctor: TIKI ZHENG [facility] RADIOLOGY REPORT PROCEDURE: MM TOMOSYNTHESIS DIAGNOSTIC BI, 06/19/2024, 13:51 US BREAST RT LIMITED, 06/19/2024, 14:09 COMPARISON: None. INDICATIONS: Breast Lump Calculator Name NCI Breast Cancer Risk Assessment Tool 5 Year Breast Cancer Risk Not Applicable. Lifetime Breast Cancer Risk Not Applicable. Personal Breast Cancer No Personal Ovarian Cancer No Treatments None Family Cancers Grandmother-maternal with ovarian cancer at age 65. LOCATION: [facility] BREAST COMPOSITION: The breasts are heterogeneously dense,which may obscure small masses. FINDINGS: DIAGNOSTIC CATEGORY 2--BENIGN FINDING. NO CHANGE FROM COMPARISON. RIGHT BREAST: No significant suspicious finding. The right breast is asymmetrically enlarged compared to the left with significant increase in fibroglandular density. No focal architectural distortion or suspicious calcifications. Ultrasound demonstrates heterogeneous fibroglandular tissue with no focal mass. LEFT BREAST: No significant suspicious finding. RECOMMENDATIONS: CLINICAL EVALUATION. PLEASE NOTE: A NORMAL MAMMOGRAM DOES NOT EXCLUDE THE POSSIBILITY OF BREAST CANCER. A CLINICALLY SUSPICIOUS PALPABLE LUMP SHOULD BE BIOPSIED. Dictated by: Mauro Posadas MD on 06/19/2024 at 14:30 Approved by: Mauro Posadas MD on 06/19/2024 at 14:33 Dictated By: Mauro Posadas M.D. Signed By: 06/19/24 1434 DD/ 1433 TD/TT: Retirement Officer: [place] [address] Mammography Report Signed Patient: JOY GAYLE MR#: [id number] : 1990 Acct:[id number] Age/Sex: 33 / F ADM Date: 06/19/24 Loc: MAMMO Attending Dr: TIKI ZHENG Ordering Physician: TIKI ZHENG Results: Date of Service: 06/19/24 Follow Up: Procedure(s): MM tomosynthesis diagnostic BI Accession Number(s): [id number] cc: TIKI ZHENG Patient Name: JOY GAYLE MR#: [id number] : 1990 Exam Date: 06/19/2024 Ordering Doctor: TIKI ZHENG [facility] RADIOLOGY REPORT PROCEDURE: MM TOMOSYNTHESIS DIAGNOSTIC BI, 06/19/2024, 13:51 US BREAST RT LIMITED , 06/19/2024, 14:09 COMPARISON: None. INDICATIONS: Breast Lump Calculator Name NCI Breast Cancer Risk Assessment Tool 5 Year Breast Cancer Risk Not Applicable. Lifetime Breast Canc er Risk Not Applicable. Personal Breast Canc er No Personal Ovarian Cancer No Treatments None Family Cancers Grandmother-maternal with ovarian cancer at age 65. LOCATION: [facility] BREAST COMPOSITION: The breasts are heterogeneously dense,which may obscure small masses. FINDINGS: DIAGNOSTIC CATEGORY 2--BENIGN FINDING. NO CHANGE FROM COMPARISON. RIGHT BREAST: No significant suspicious finding. The right breast is asymmetrically enlarged compared to the left with significant increase in fibroglandular density. No focal architectural distortion or suspicious calcifications. Ultrasound demonstrates heterogeneous fibroglandular tissue with no focal mass. LEFT BREAST: No significant suspicious finding. RECOMMENDATIONS: CLINICAL EVALUATION. PLEASE NOTE: A DEANDRE L MAMMOGRAM DOES NOT EXCLUDE THE POSSIBILITY OF BREAST CANCER. A CLINICALLY SUSPICIOUS PALPABLE LUMP SHOULD BE BIOPSIED. Dictated by: Mauro Posadas MD on 06/19/2024 at 14:30 Approved by: Mauro Posadas MD on 06/19/2024 at 14:33 Dictated By: Mauro Posadas M.D. Signed By: 06/19/24 1434 DD/ 1433 TD/TT: Retirement Officer: NIKKI bone 3 phase Reviewed date:04/03/2024 02:34:01 PM Interpretation: Performing Lab: Notes/Report: Source Facility: [place] [address] Nuclear Medicine Report Signed Patient: JOY ANTONY MR#: [id number] : 1990 Acct:[id number] Age/Sex: 33 / F ADM Date: 04/03/24 Loc: NIKKI Attending Dr: Dayna Reeves Ordering Physician: Dayna Reeves Date of Service: 04/03/24 Procedure(s): NIKKI bone 3 phase Accession Number(s): [id number] cc: TIKI ZHENG ; Dayna Reeves [place] [address] Patient Name: JOY ANTONY MRN: [id number] date: 1990 Sex: F Assigned Patient Location: [place] Current Patient Location: [place] Accession/Order Number: [id number] Exam Date: 04/03/2024 08:08 Report Date: 04/03/2024 14:14 At the request of: DAYNA REEVES Procedure: NIKKI bone 3 phase EXAMINATION: NIKKI bone 3 phase HISTORY: CELLULITIS OF THE LEFT UPPER LIMB COMPARISON: No relevant comparison available. TECHNIQUE: 24.8 mCi Technetium 99m MDP was injected intravenously followed by acquisition of dynamic flow, immediate blood pool, and delayed static images. FINDINGS: IMAGED AREA: Chest and left arm FLOW PHASE: Normal. BLOOD POOL PHASE: Normal. DELAYED IMAGES: Normal. OTHER: Negative. NIKKI/NIKKI bone 3 phase IMPRESSION: No abnormality Electronically authenticated by: MAURO POSADAS Date: 04/03/2024 14:14 Dictated By: Mauro Posadas M.D. Signed By: 04/03/241415 DD/ 13 TD/TT: Retirement Officer: [place] [address] Nuclear Medicine Report Signed Patient: JOY ANTONY MR#: [id number] : 1990 Acct:[id number] Age/Sex: 33 / F ADM Date: 04/03/24 Loc: NIKKI Attending Dr: Tana Reeves Ordering Physician: Dayna Reeves Date of Service: 04/03/24 Procedure(s): NIKKI bon e 3 phase Accession Number(s): [id number] cc: TIKI ZHENG ; Dayna Reeves [place] [address] Patient Name: JOY ANTONY MRN: [facility]:[id number] date: 1990 Sex: F Assigned Patient Location: [place] Current Patient Location: [place] Accession/Order Number: [id number] Exam Date: 08:08 Report Date: 04/03/2024 14:14 At the request of: DAYNA REEVES Procedure: NIKKI bone 3 phase EXAMINATION: NIKKI bone 3 phase HISTORY: CELLULITIS OF THE LEFT UPPER LIMB COMPARISON: No relevant comparison available. TECHNIQUE: 24.8 mCi Technetium 99m MDP was injected intravenously followed by acquisition of dynam ic flow, immediate blood pool, and delayed static images. FINDINGS: IMAGED AREA: Chest a nd left arm FLOW PHASE: Normal. BLOOD POOL PHASE: Normal. DELAYED IMAGES: Normal. OTHER: Negative. NM/NIKKI bone 3 phase IMPRESSION: No abnormality Electronically authenticated by: MAURO POSADAS Date: 04/03/2024 14:14 Dictated By: Mauro Posadas M.D. Signed By: 04/03/241415 DD/ 13 TD/TT: Retirement Officer: MARLENE GROSS RAND URINE Reviewed date:08/04/2024 10:36:03 AM Interpretation: Performing Lab: Notes/Report: [facility] , Uric Acid, Urine 52.3 Not Estab. mg/dL Performed at: [facility] Friction Welding Machine Operator: Claudio Lozano PhD, Phone: [phone] [address] [place] [place], [place] [id number] Performing Lab: see note - [facility] LB DRUG SCREEN RAPID (URINE) Reviewed date:07/28/2024 08:16:02 AM Interpretation: Performing Lab: Notes/Report: [facility] , Cannabinoid Screen Urine POSITIVE NEGATIVE Phencyclidine Screen Urine NEGATIVE NEGATIVE Cocaine Screen Urine NEGATIVE NEGATIVE Methamphetamines Screen Urine NEGATIVE NEGATIVE Opiate Screen Urine NEGATIVE NEGATIVE Amphetamine Screen Urine POSITIVE NEGATIVE Benzodiazepines Screen Urine NEGATIVE NEGATIVE Tricyclic Antidepressant Urine NEGATIVE NEGATIVE Methadone Screen Urine NEGATIVE NEGATIVE Barbiturates Screen Urine NEGATIVE NEGATIVE Oxycodone Screen Urine NEGATIVE NEGATIVE Buprenorphine Screen Urine NEGATIVE NEGATIVE PCP (Phencyclidine): 25 ng/mL BZO (Benzodiazepines): 150 ng/mL MTD (Methadone): 200 ng/mL BUP (Buprenorphine): 10 ng/mL DRUG CLASS TEST SYSTEM CUT-OFF CONCENTRATIONS ARE THOMAS (Cocaine): 150 ng/mL THC (Cannabinoids): 50 ng/mL mAMP (Methamphetamine): 500 ng/mL AMP (Amphetamine): 500 ng/mL FOLLOWS: TCA (Trycyclic Antidepressants): 300 ng/mL BAR (Barbiturates): 200 ng/mL OXY (Oxycodone): 100 ng/mL OPI (Opiates): 100 ng/mL Performing Lab: see note ML - [facility] LB TSH Reviewed date:07/10/2024 03:06:13 PM Interpretation: Performing Lab: Notes/Report: [facility] , Thyroid Stimulating Hormone 2.526 0.358-3.740 uIU/mL Performing Lab: see note - [facility] LB T4 Reviewed date:07/10/2024 03:06:13 PM Interpretation: Performing Lab: Notes/Report: [facility] , T4 Thyroxine 7.00 4.80-13.90 ug/dL Performing Lab: see note - [facility] LB PROF 14(COMP METB) Reviewed date:07/10/2024 03:06:13 PM Interpretation: Performing Lab: Notes/Report: [facility] , Sodium 141 136-145 mmol/L Potassium 3.6 3.5-5.1 mmol/L Chloride 103 98-107 mmol/L Carbon Dioxide 28.4 21.0-32.0 mmol/L Anion Gap 13.2 Glucose 81 74-106 mg/dL Blood Urea Nitrogen 11.0 7.0-18.0 mg/dL Creatinine 0.67 0.55-1.02 mg/dL Estimated GFR ( Chelita >60 >=60 mL/min/1.73m 2 Estimated GFR (Non- Anum >60 >=60 mL/min/1.73m 2 BUN Creatinine Ratio 16.4 Calcium 8.9 8.5-10.1 mg/dL Bilirubin Total 0.4 0.2-1.0 mg/dL Aspartate Amino Transferase 15 15-37 U/L Alanine Aminotransferase 26 14-59 U/L Alkaline Phosphatase 57 46-116 U/L Total Protein 7.2 6.4-8.2 g/dL Albumin Level 3.9 3.4-5.0 g/dL Globulin 3.3 Albumin Globulin Ratio 1.2 Performing Lab: see note ML - [facility] LB LIPID PROFILE Reviewed date:07/10/2024 03:06:13 PM Interpretation: Performing Lab: Notes/Report: [facility] , Triglycerides 46 <=150 mg/dL Cholesterol 197 <=200 mg/dL HDL Cholesterol 57 40-60 mg/dL <40 mg/dl - HIGH CARDIOVASCULAR RISK > or =60 mg/dl - LOW CARDIOVASCULAR RISK LDL Cholesterol Calculated 130.8 130-159 mg/dl BORDERLINE HIGH 100-129 mg/dl NEAR OR ABOVE OPTIMAL >190 mg/dl VERY HIGH 160-189 mg/dl HIGH <100 mg/dl OPTIMAL VLDL CHOLESTEROL 9.2 Chol HDL Ratio 3.5 4.4 - 7.1 AVERAGE RISK >11.0 HIGH RISK 3.3 - 4.4 LOW RISK 7.1 - 11.0 MODERATE RISK Performing Lab: see note ML - [facility] LB FREE T3 Reviewed date:07/10/2024 03:06:13 PM Interpretation: Performing Lab: Notes/Report: [facility] , Free T3 2.26 2.18-3.98 pg/mL Performing Lab: see note ML - [facility] LB CBC AUTO DIFF Reviewed date:07/10/2024 03:06:13 PM Interpretation: Performing Lab: Notes/Report: [facility] , White Blood Count 5.9 4.0-11.0 10 3/uL Red Blood Count 4.26 4.20-5.40 10 6/uL Hemoglobin 13.2 12.0-16.0 g/dL Hematocrit 39.2 36.0-48.0 % Mean Corpuscular Volume 92.0 81.0-99.0 fL Mean Corpuscular Hemoglobin 31.0 26.7-34.0 pg Mean Corpuscular HGB Conc 33.7 29.9-35.2 g/dL Red Cell Distribution Width 13.6 11.0-15.0 % Platelet Count 192 150-450 10 3/uL Mean Platelet Volume 11.9 9.5-13.5 fL Neutrophils Percent Auto 72.4 43.0-75.0 % Lymphocytes Percent Auto 21.2 20.5-60.0 % Monocytes Percent Auto 5.1 1.7-12.0 % Eosinophils Percent Auto 0.7 0.9-7.0 % Basophils Percent Auto 0.3 0.2-2.0 % Immature Granulocytes Pct Auto 0.3 0.0-0.5 % Neutrophils Absolute Auto 4.3 1.4-6.5 10 3/uL Lymphocytes Absolute Auto 1.3 1.2-3.8 10 3/uL Monocytes Absolute Auto 0.3 0.3-0.8 10 3/uL Eosinophils Absolute Auto 0.0 0.0-0.7 10 3/uL Basophils Absolute Auto 0.0 0.0-0.1 10 3/uL Immature Granulocytes Abs Auto 0.02 0.00-0.03 10 3/uL Performing Lab: see note ML - [facility] Reason For Referral No Information Medications Medication SIG (Take, Route, Frequency, Duration) Notes Start Date End Date Status Nurtec 75 MG 1 tablet on the tongue and allow to dissolve Orally daily as needed for 30 days PRN Active EpiPen 2-Dorian 0.3 MG/0.3ML as directed Injection PRN Active Adderall 15 MG 1 tablet Orally Daily for 30 days 12/02/2024 Active Desvenlafaxine Succinate ER 25 MG TAKE 1 TABLET BY MOUTH EVERY DAY FOR 30 DAYS for 30 Active Ondansetron HCl 4 MG 1 tablet Orally Once a day prn for 30 days 08/14/2023 Active Ozempic (0.25 or 0.5 MG/DOSE) 2 MG/3ML 0.25 Subcutaneous once weekly for 30 days Compounded Version 04/03/2023 Not-Taking Social History Tobacco Use: Social History Observation Description Date Details (start date - stop date) Never Smoker NA - NA Tobacco Use/Smoking Question Answer Notes Patient is a nonsmoker Alcohol Screen (Audit-C) Question Answer Notes Did you have a drink contain ing alcohol in the past year? Yes How often did you have 6 or more drinks on one occasion in the past year? Never (0 point) How many drinks did you have on a typical day when you were drinking in the past year? 1 or 2 drinks (0 point) How often did you have a dri nk containing alcohol in the past year? Less than monthly (1 point) Points 1 Interpretation Negative AUDIT-C (Standard) Question Answer Notes Did you have a drink containing alcohol in the p ast year? No Points 0 Interpretation Negative Problems Problem Type SNOMED Code ICD Code Onset Dates Problem Status W/U Status Risk Notes Problem 884732588 Other obesity due to excess calories (E66.09) Active confirmed Problem Fear of flying (150743571) Fear of flying (F40.243) Active confirmed Problem Disorder of meninges (10337937) Other disorders of meninges, not elsewhere classified (G96.19) Active confirmed Problem Disorder of nasal sinus (disorder) (1345043) Other specified disorders of nose and nasal sinuses (J34.89) Active confirmed Problem Fatigue (10537788) Fatigue (R53.83) Active confirmed Problem Migraine (16654145) Migraine (G43.909) Active confirmed Problem Alopecia (03872933) Hair loss (L65.9) Active confirmed Problem Near syncope (351054932) Near syncope (R55) Active confirmed Problem Restless legs (97657901) Restless legs (G25.81) Active confirmed Problem Neck pain (16919959) Neck pain on right side (M54.2) Active confirmed Problem Difficulty swallowing (618539287) Difficulty swallowing (R13.10) Active confirmed Problem Mixed anxiety and depressive disorder (568657312) Anxiety and depression (F41.8) Active confirmed Problem Disease caused by Severe acute respiratory syndrome coronavirus 2 (disorder) (941283569) COVID-19 virus infection (U07.1) Active confirmed Problem Unable to concentrate (43304932) Unable to concentrate (R41.840) Active confirmed Problem 857784344 Body mass index [BMI] 30.0-30.9, adult (Z68.30) Active confirmed Vital Signs Blood pressure diastolic 80 mm Hg 05/30/2024 Height 66 in 10/30/2024 Blood pressure systolic 102 mm Hg 05/30/2024 Weight 141.8 lbs 10/30/2024 BMI 22.88 kg/m2 10/30/2024 Encounters Encounter Location Date Provider Diagnosis [address] [place] [address] 03/04/2024 Tiki Zheng Neck pain M54.2 and Unable to concentrate R41.840 [address] [place] [address] 05/30/2024 Tiki Zheng Breast lump N63.0 ; Wellness examination Z00.00 and Lightheaded R42 [facility] [address] [place] [place] [address] 01/17/2024 Tiki Zheng Unable to concentrat e R41.840 [address] [place] [address] 01/17/2024 Tiki Zheng Unable to concentrat e R41.840 [facility] [address] [place] [place] [address] 02/08/2024 Tiki Zheng [facility] [address] [place] [address] 03/04/2024 Tiki Zheng [facility] [address] [place] [address] 10/30/2024 Tiki Zheng Unable to concentrat e R41.840 and Migraine G43.909 [facility] [address] [place] [address] 03/04/2024 Tiki Zheng Difficulty swallowin g R13.10 [facility] [address] [place] [place] [address] 03/06/2024 Tiki Zheng Unable to concentrat e R41.840 [facility] [address] [place] [place] [address] 03/19/2024 Tiki Zheng Fatigue R53.83 [facility] [address] [place] [place] [address] 03/24/2024 Tiki Zheng [facility] [address] [facility] [place] [address] 04/17/2024 Tiki Zheng Unable to concentrat e R41.840 [facility] [address] [place] [place] [address] 05/19/2024 Tiki Zheng Unable to concentrat e R41.840 [facility] [address] [place] [address] 06/09/2024 Tiki Zheng Breast lump N63.0 [facility] [address] [place] [place] [address] 06/20/2024 Tiki Zheng [facility] [address] [place] [place] [address] 06/30/2024 Tiki Zheng Unable to concentrat e R41.840 [facility] [address] [place] [place] [address] 07/10/2024 Tiki Zheng [facility] [address] [place] [place] [address] 07/25/2024 Tiki Zheng Encounter for long-term current use of medication Z79.899 [facility] [address] [place] [place] [address] 08/06/2024 Tiki Zheng Unable to concentrat e R41.840 [facility] [address] [place] [place] [address] 09/05/2024 Addi Grajeda Unable to concentrat e R41.840 [facility] [address] [place] [address] 12/01/2024 Addi Grajeda Unable to concentrat e R41.840 [facility] [address] [place] [address] 12/22/2024 Tiki Zheng Encounter for long-term (current) drug use Z79.899 Assessments Encounter Date Diagnosis (ICD Code) Assessment Notes Treatment Notes Treatment Clinical Notes Section Notes 03/04/2024 Neck pain (ICD-10 - M54.2) did not do US neck, barium swallow ordered in Jul reordered 10/30/2024 Unable to concentrate (ICD-10 - R41.840) CSA signed, OARRS reviewed adderall helps at work wants to continue 6m fu 01/17/2024 Unable to concentrate (ICD-10 - R41.840) 01/17/2024 Unable to concentrate (ICD-10 - R41.840) 03/04/2024 Difficulty swallowing (ICD-10 - R13.10) 03/06/2024 Unable to concentrate (ICD-10 - R41.840) 03/19/2024 Fatigue (ICD-10 - R53.83) 04/17/2024 Unable to concentrate (ICD-10 - R41.840) 05/19/2024 Unable to concentrate (ICD-10 - R41.840) 06/09/2024 Breast lump (ICD-10 - N63.0) 06/30/2024 Unable to concentrate (ICD-10 - R41.840) 07/25/2024 Encounter for long-term current use of medication (ICD-10 - Z79.899) 08/06/2024 Unable to concentrate (ICD-10 - R41.840) 09/05/2024 Unable to concentrate (ICD-10 - R41.840) 12/01/2024 Unable to concentrate (ICD-10 - R41.840) 12/22/2024 Encounter for long-term (current) drug use (ICD-10 - Z79.899) 05/30/2024 Wellness examination (ICD-10 - Z00.00) no recent wellness labs 05/30/2024 Breast lump (ICD-10 - N63.0) 10/30/2024 Migraine (ICD-10 - G43.909) med helps needs refill 03/04/2024 Unable to concentrate (ICD-10 - R41.840) OARRS reviewed CSA signed adderall helps work wants continue 05/30/2024 Lightheaded (ICD-10 - R42) take 1/2 tablet metoprolol BID for one week than stop continue monitor sx BP, HR fu as needed hx tachy labs increase water, electrolytes dont skip meals 05/30/2024 Other consider decreasing Adderall dose with continued wt loss, Plan Of Treatment Pending Test Test Name Order Date CMP (COMPLETE METABOLIC PANEL) 3 CMP (COMPLETE METABOLIC PANEL) 4 HEMOGLOBIN A1C (GLYCO) 01/30/2023 HEMOGLOBIN A1C (GLYCO) 05/30/2024 INSULIN, TOTAL 05/30/2024 IRON, TOTAL 01/30/2023 LIPID PANEL (CHOL/TRIG/HDL/LDL) 01/31/20 23 LIPID PANEL (CHOL/TRIG/HDL/LDL) 05/30/20 24 CBC WITH DIFF 05/30/2024 CBC WITH DIFF 01/30/2023 VITAMIN D, 25 LEVEL (TOTAL) 01/30/2023 XR Chest PA and Lateral (Routine CXR) * 11/09/2022 URINE URIC ACID,RANDOM 12/22/2024 Insulin Level 01/30/2023 COMPLIANCE DRUG SCREEN 12/22/2024 COMPLIANCE DRUG SCREEN 07/25/2024 DRUG SCREEN RAPID (URINE) 12/22/[address] HEAD_NECK 03/04/[address] HEAD_NECK 07/31/2023 XR MODIFIED BARIUM SWALLOW 07/31/2023 XR MODIFIED BARIUM SWALLOW 03/04/2024 THYROID PANEL (T4/TSH/FREE T3) 4 THYROID PANEL (T4/TSH/FREE T3) 4 THYROID PANEL (T4/TSH/FREE T3) 3 MM diagnostic mammo BI 05/30/2024 US BREAST COMPLETE RIGHT 06/09/2024 Insurance Providers Payer Name Payer Address Payer Phone Subscriber Number Group Number Insured Name Patient Relationship to Insured Coverage Start Date Coverage End Date [employer] [facility] [address] [place] [id number] Joy Gayle Self - patient is the insured [employer] [address] [place] [phone] [id number] Edison Gayle Spouse - patient is the spouse of the insured Medications Administered Medication Instructions Date of Administration Dosage Notes Ketorolac Tromethamine 01/09/2023 60 mg Orphenadrine Citrate 01/09/2023 60 mg Medical (General) History Medical History History ICD Code Neck pain on right side M54.2 Overweight E66.3 Gastritis K29.70 Subarachnoid cyst G93.0 COVID-19 virus infection U07.1 Cellulitis of left arm L03.114 Other specified disorders of nose and na [place] sinuses J34.89 Cough, unspecified R05.9 Hives L50.9 Hair loss L65.9 Near syncope R55 Bee sting allergy Z91.030 Paresthesia R20.2 Restless legs G25.81 Fear of flying F40.243 Weight gain R63.5 External otitis of left ear H60.92 Acute sinusitis J01.90 Rash R21 Unable to concentrate R41.840 Other disorders of meninges, not elsewhe re classified G96.19 Fatigue R53.83 Diarrhea R19.7 Nausea & vomiting R11.2 Urinary tract infection N39.0 Anxiety and depression F41.8 Migraine G43.909 Surgical History Surgery Date(Month/Year) D&C for endometriosis Left arm surgeryx2 Right Ovary removed 2019 Hysterectomy 2020 Ablation T6,T7,T8 & T9 12/06/22 Hospitalization History Reason Date(Month/Year) see above
--- OUTSIDE RECORDS SUMMARY | 2024-12-23 15:31 | XMS_ITS | Patient Health Record ---
Author Organization Corporate Office Address [address] [place] [address] [address] [place] [address] Care Team Providers Care Gutter Installer Name Role Phone EstelleAndrés haas Primary Care Provider Unavailab le [place], [place] Unavailable Reason For Referral No Information Medications Medication SIG (Take, Route, Frequency, Duration) Notes Start Date End Date Status Pamelor 25 MG 1 capsule Orally QHS for 30 day(s) 03/15/2016 Active Pamelor 50 mg 1 capsule at bedtime Orally Once a day for 30 day(s) 06/21/2016 Active Nexplanon 68 MG Subcutaneous A ctive Onzetra Xsail 11 MG/NOSEPC 1 spray in each nostril as needed one time Nasally Once a day for 1 day(s) 03/15/2016 Active Zomig 5 MG 1 spray as needed Na cipriano Once a day for 30 day(s) 04/13/2016 Active Imitrex 50 MG 1 tablet as needed @ onset of migraine and may repeat in 1 hour if needed. max dose 100 mg per day Orally Twice a day for 30 days 02/14/2017 Active Amerge 2.5 mg 1 tablet as needed o ne time Orally PRN at onset of migraine, no more than 2 in 24 hrs for 30 days 04/13/2016 Active Diclofenac Potassium 50 mg 1 tablet Orally PRN for h/a onset for 30 day(s) 04/13/2016 Active Lidocaine-Prilocaine 2.5-2.5 % as directed Externally every 8 hours as needed for 30 days Active Problems Problem Type SNOMED Code ICD Code Onset Dates Problem Status W/U Status Risk Notes Problem Anxiety (76101966) Anxiety (F41.9) Active confirmed Problem 66018054 Chronic migraine (G43.709) Active confirmed Problem 234549630 Chronic migraine without aura, intractable, without status migrainosus (G43.719) Active confirmed Problem 01532130 Occipital neuralgia of left side (M54.81) Active confirmed Problem Aura (21656210) Aura (R29.818) Active confirmed Plan Of Treatment No Information Insurance Providers Payer Name Payer Address Payer Phone Subscriber Number Group Number Insured Name Patient Relationship to Insured Coverage Start Date Coverage End Date [employer] [address] [address] [place] [address] [id number] Joy Arzola Self - patient is the insured 7 Medications Administered Medication Instructions Date of Administration Dosage Notes IM PHENERGAN UP TO 50mg 09/05/2016 25 mg IM TORADOL PER 30 MG 09/05/2016 30 mg IM Benadryl up to 50mg 09/05/2016 25 mg Medical (General) History Medical History History ICD Code Migraines Anxiety Headaches Surgical History Surgery Date(Month/Year) D&C Upper GI Hospitalization History Reason Date(Month/Year) PILAR [place]-migraine 12/2015 None in the last six months. 10/25/16
[2024-12-23 15:56] LABS: Cannabinoid Screen Urine NEGATIVE (NEGATIVE); Methamphetamines Screen Urine NEGATIVE (NEGATIVE); Tricyclic Antidepressant Urine NEGATIVE (NEGATIVE)
[2024-12-24 04:08] LABS: Uric Acid, Urine 37.8 mg/dL (Not Estab.)
== END 2024-12-23 15:28 | disposition home or self-care (01) ==
PROVIDERS: PCP Nurse Practitioner Family; Visit Provider Nurse Practitioner Family
DX: Z79.899 Other long term (current) drug therapy (principal)
CPT/HCPCS: 80307; 80326; 80331; 80334; 80337; 80338; 80341; 80344; 80347; 80348; 80353; 80354; 80355; 80357; 80358; 80359; 80360; 80361; 80364; 80365; 80366; 80367; 80368; 80370; 80371; 80372; 80373; 80377; 82570; 83992; 84560

== ENCOUNTER 2024-12-31 15:31 | Outpatient (OUT) | payer OTHER, SELFPAY ==
--- NOTE | 2024-12-31 15:53 | PM.CN ---
Consult Note: HPI Data of Consult Patient: known to practice within the last 3 years Requesting Physician: Tamar Guevara NP Primary Care Provider: OCTAVIA THOMAS Consult Narrative Reason for consult: f/u Narrative: Joy Arzola a 34 year old female presents for chronic left arm pain post work related injury. Pain 6/10 increasing to 10/10 with pushing, pulling, arm movement, lifting, activity. Patient has failed to benefit from tylenol, motrin, meloxicam, duloxetine, gabapentin, lyrica, baclofen, amitritptyline and zonegran. has failed compound cream in the past. since last visit [facility] did add CRPS to approved diagnosis list, we are now able to proceed with further interventional therapy. cc:: CC: Tamar Guevara NP Review of Systems ROS Status of ROS 10 or more systems reviewed and unremarkable except as noted in history and below Musculoskeletal Reports: extremity pain PFSH PFSH Social History Little interest or pleasure in doing things: not at all Feeling down, depressed, or hopeless: not at all Meds Home Medications and Allergies Home Medications �Medication �Instructions �Recorded �Confirmed �Type dextroamphetamine-amphetamine 15 15 mg PO DAILY 08/28/23 06/23/24 History mg tablet (Adderall) metoprolol tartrate 50 mg tablet 25 mg PO BID 08/28/23 06/23/24 History (Lopressor) multivitamin 1 tab PO DAILY 08/28/23 06/23/24 History ondansetron HCl 4 mg tablet 4 mg PO PRN nausea and vomiting 06/23/24 History Allergies Allergy/AdvReac Type Severity Reaction Status Date / Time Penicillins Allergy Severe Hives Verified 06/23/24 20:43 Exam Extremity Left upper extremity: lower arm Other: very mild dermatographia on the left upper extremity compared to the right. mild dysesthesia and hypoesthesia, as well as allodynia in patchy areas of her left upper extremity compared to the right. no appreciable nail growth changes and possibly some mild hair growth changes of her left upper extremity compared to the right. Assessment and Plan Assessment and Plan (1) CRPS (complex regional pain syndrome): Assessment and Plan: Joy Arzola a 34 year old female presents for chronic left arm pain post work related injury. Pain 6/10 increasing to 10/10 with pushing, pulling, arm movement, lifting, activity. Patient has failed to benefit from tylenol, motrin, meloxicam, duloxetine, gabapentin, lyrica, baclofen, amitritptyline and zonegran. has failed compound cream in the past. since last visit [facility] did add CRPS to approved diagnosis list, we are now able to proceed with further interventional therapy. as noted above significant disproportional left upper extremity pain, will proceed with therapeutic left stellage ganglion sympathetic injection x2 for CRPS Plan defer additional medications f/u after injections complete with Dr Berger
== END 2024-12-31 15:32 | disposition home or self-care (01) ==
LOC: PM 15:32
PROVIDERS: PCP Nurse Practitioner Family; Visit Provider Nurse Practitioner
DX: G90.59 Complex regional pain syndrome I of other specified site (principal)
CPT/HCPCS: G0463

== ENCOUNTER 2025-05-18 07:45 | Day surgery (SDC) | payer OTHER, SELFPAY ==
--- OUTSIDE RECORDS SUMMARY | 2018-07-04 08:40 | XMS_ITS | Continuity of Care Document ---
[facility] Organization [facility] Address [address] [place] [address] Phone Care Team Providers Care Hand Marker Name Role Phone Comparoni OD, Nani Unavailable Unavailable Allergies, Adverse Reactions, Alerts Substance Reaction Status Criticality No Known Allergies Active No Inform ation Medications Medication Instructions Dosage Effective Dates (start - stop) Status Comments NAPROXEN (unknown strength) take 10 milliliter by oral route every 6 - 8 hours as needed with food Not Available - Active IBUPROFEN (unknown strength) take 1 capsule by oral route every 6 hours as needed Not Available - Active Procedures Procedure Date REFRACTION Routine Vision Exam Ophthalmological Services; Medical Exam And Eval, Comprehensive, New Pt REFRACTION Advance Directives Directive Yes / No Effective Date File Name No Information Encounters Encounter Description Practice Location Reason(s) For Visit Diagnoses Date Provider [facility] [address], [place], [place], [id number], [place] tel:[phone] [facility] decreased vision (chief complaint) Myopia of both eyes with astigmatismUnspecified astigmatism, bilateral Comparoni Nani. [address] , [place], [place], [id number], [place]. tel:[phone] Family History Family Member Type Diagnosis Age At Onset Father Problem (finding) Diabetes mellitus Father Problem (finding) hypertension Payers Payer name Insurance type Covered libertarian ID Authoriza tion(s) Medicare MB [id number] [facility] [id number] Social History Type Description Quantity Date Captured Comments Alcohol Use Details Unknown Caffeine Use Details Unknown Tobacco Use Status Smoking Status Unknown if ever smoked 19 Non-Smoking Tobacco Use Details : No Details Available : No Details Available [id number] SexFemale Chief Complaint And Reason For Visit From encounter dated '07/04/2018 13:40'. decreased vision (chief complaint). Description: The 27 year old female presents for evaluation of decreased vision in the right eye and left eye. It started about 1 year(s) ago. The onset was gradual. It affects distance vision. Plan Of Treatment Date Type Action Status Goal Tobacco cessation counseling completed History Of Present Illness Encounter Date Complaint History Of Prese nt Illness decreased vision The 27 year old female presents for evaluation of decreased vision in the right eye and left eye. It started about 1 year(s) ago. The onset was gradual. It affects distance vision. Instructions Date Instruction Additional Infor george Return in 2 years Nani Self for Complete Exam. Related to Myopia of both eyes with astigmatism Impression/Plan - Spec Rx given Related to Myopia of both eyes with astigmatism Assessments Type Assessment Date assessment Myopia of both eyes with astigma tism assessment Unspecified astigmatism, home vasquez impression Myopia of both eyes with astigma tism: H52.13
--- OUTSIDE RECORDS SUMMARY | 2024-10-21 10:00 | XMS_ITS ---
Author Organization [facility] in [place] Address [address] [place] [address] Care Team Providers Care Chemical Processing Technician Name Role Phone Tiki Zheng Primary Care Provider [phone] REASON FOR VISIT 6 month med check NEEDS TO SIGN CSA Encounters Encounter Location Date Provider Diagnosis [address] [address] 10/21/2024 Tiki Zheng Plan Of Treatment No Information Progress Notes * Joy GAYLE PDOB:1990 (34 yo F)Acc No.[id number]:10/21/2024 UNLOCKED PROGRESS NOTE Progress Note Patient: Joy LOPEZ :?Tiki MATHEWS), CNPDOB:1990 ???Age:33 Y???Sex:FemaleDate:10/21/2024Phone:[phone]:[address] [place], [place] [id number] Subjective: * Chief Complaints: * 1 . 6 month med check NEEDS TO SIGN CSA. * Medical History: Objective: * Vitals: Assessment: Plan: * Treatment: * * Electronic signature of Tiki Zheng NP, METAL FITTER.REVENUE COLLECTOR.[id number] on 05/18/2025 at 07:49 AM ESTSign off status: PendingVisit Status:?N/S N/C (No Show/No Charge) * Provider: Wil Zheng (TTC), REVENUE COLLECTOR Date: 0 10/21/2024 Generated for Printing/Faxing/eTransmitting on:?05/18/2025 07:49 AM EST
[2025-05-18 07:50] VITALS: BP 116/75; PULSE 90; TEMP 36.7; O2SAT 99
--- OUTSIDE RECORDS SUMMARY | 2025-05-18 07:50 | XMS_ITS | Patient Health Record ---
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 Name Role Phone Tiki Zheng Primary Care Provider Addi Grajeda [phone] Allergies Allergen (clinical drug ingredient) Drug/Non Drug Allergy documented on EMR Reaction Allergy Type Onset Date Status Bee StinghivesAllergyActivePenicillinhivesDrug AllergyActive Results Component Value Reference Range Notes MM tomosynthesis diagnostic BI Reviewed date:06/20/2024 02:57:18 PM Interpretation: Performing Lab: Notes/Report: Source Facility: [place] [address] Mammography Report Signed Patient: JOY GAYLE MR#: [id number] : 1990 Acct:[id number] Age/Sex: 33 / F ADM Date: 06/19/24 Loc: MAMMO Attending Dr: TIKI ZHENG Ordering Physician: TIKI ZHENG Results: Date of Service: 06/19/24 Follow Up: Procedure(s): MM tomosynthesis diagnostic BI Accession Number(s): [id number] cc: TIKI ZHENG Patient Name: JOY GAYLE MR#: [id number] : 1990 Exam Date: 06/19/2024 Ordering Doctor: TIKI ZHENG [facility] RADIOLOGY REPORT PROCEDURE: MM TOMOSYNTHESIS DIAGNOSTIC BI, 06/19/2024, 13:51 US BREAST RT LIMITED, 06/19/2024, 14:09 COMPARISON: None. INDICATIONS: Breast Lump Calculator Name NCI Breast Cancer Risk Assessment Tool 5 Year Breast Cancer Risk Not Applicable. Lifetime Breast Cancer Risk Not Applicable. Personal Breast Cancer No Personal Ovarian Cancer No Treatments None Family Cancers Grandmother-maternal with ovarian cancer at age 65. LOCATION: [facility] BREAST COMPOSITION: The breasts are heterogeneously [...] PALPABLE LUMP SHOULD BE BIOPSIED. Dictated by: Deepak Ellis MD on 06/19/2024 at 14:30 Approved by: Deepak Ellis MD on 06/19/2024 at 14:33 Dictated By: Deepak Ellis M.D. Signed By: 06/19/24 1434 DD/ 1433 TD/TT: Internal Combustion Engineer: US breast RT limited Reviewed date:06/20/2024 02:57:26 PM Interpretation: Performing Lab: Notes/Report: Source Facility: [place] [address] Ultrasound Report Signed Patient: JOY GAYLE MR#: [id number] : 1990 Acct:[id number] Age/Sex: 33 / F ADM Date: 06/19/24 Loc: MAMMO Attending Dr: TIKI ZHENG Ordering Physician: TIKI ZHENG Date of Service: 06/19/24 Procedure(s): US breast RT limited Accession Number(s): [id number] cc: TIKI ZHENG Patient Name: JOY GAYLE MR#: [id number] : 1990 Exam Date: 06/19/2024 Ordering Doctor: TIKI ZHENG [facility] RADIOLOGY REPORT PROCEDURE: MM TOMOSYNTHESIS DIAGNOSTIC BI, 06/19/2024, 13:51 US BREAST RT LIMITED, 06/19/2024, 14:09 COMPARISON: None. INDICATIONS: Breast Lump Calculator Name NCI Breast Cancer Risk Assessment Tool 5 Year Breast Cancer Risk Not Applicable. Lifetime Breast Cancer Risk Not Applicable. Personal Breast Cancer No Personal Ovarian Cancer No Treatments None Family Cancers Grandmother-maternal with ovarian cancer at age 65. LOCATION: [facility] BREAST COMPOSITION: The breasts are heterogeneously [...] PALPABLE LUMP SHOULD BE BIOPSIED. Dictated by: Deepak Ellis MD on 06/19/2024 at 14:30 Approved by: Deepak Ellis MD on 06/19/2024 at 14:33 Dictated By: Deepak Ellis M.D. Signed By: 06/19/24 1435 DD/ 1433 TD/TT: Internal Combustion Engineer: INSULIN Reviewed date:07/11/2024 09:38:29 AM Interpretation: Performing Lab: Notes/Report: [facility] , Insulin 9.5 2.6-24.9 uIU/mL [address] [place] [phone] Performed at: [facility] [employer]: Claudio Lozano PhD, Phone: [phone] Performing Lab: see note LC - [facility] LBURIC ACID RAND URINE Reviewed date:01/01/2025 02:21:24 PM Interpretation: Performing Lab: Notes/Report: [facility] ,Uric Acid, Urine37.8Not Estab. mg/dL Performed at: [facility] [employer]: Claudio Lozano PhD, Phone: [phone] [address] [place] [address] [phone] Performing Lab:see noteLC - [facility] LBCompliance Drug Analysis, Ur Reviewed date:01/01/2025 02:21:24 PM Interpretation: Performing Lab: Notes/Report: [facility] ,Summary Report (Summary)FINAL. Drug Present not Declared for Prescription Verification Performed at: [facility] Amphetamine is available as a schedule II prescription drug. [address] [place], [place] [id number] [employer]: Aleksandra Cramer ShaileshAZ, Phone: [phone] Test Result Flag Units TOXASSURE COMP DRUG ANALYSIS,UR inaccuracies in the declared medications. Amphetamine (Adderall) Amphetamine 3039 EXPECTED ng/mg creat For clinical consultation, please call . Declared Medications: Desmethylvenlafaxine PRESENT UNEXPECTED Desmethylvenlafaxine may be present due to administration of Creatinine 109 mg/dL >=20 The flagging and interpretation on this report are based on the following declared medications. Unexpected results may arise from Note: The testing scope of this panel includes these medications: Test Result Flag Units Ref Range desvenlafaxine; it is also an expected metabolite of venlafaxine. Drug Present and Declared for Prescription Verification Performing Lab:see noteLC - [facility] LBTSH Reviewed date:07/10/2024 03:06:13 PM Interpretation: Performing Lab: Notes/Report: [facility] ,Thyroid Stimulating Hormone2.5260.358-3.740 uIU/mLPerforming Lab:see note - [facility] LBT4 Reviewed date:07/10/2024 03:06:13 PM Interpretation: Performing Lab: Notes/Report: [facility] ,T4 Thyroxine7.004.80-13.90 ug/dLPerforming Lab:see noteML - [facility] LBLIPID PROFILE Reviewed date:07/10/2024 03:06:13 PM Interpretation: Performing Lab: Notes/Report: [facility] ,Xxbkevlbhekhr89<=150 mg/eYRjvdpesnkdn166<=200 mg/dLHDL Gdbaeitypdw6753-80 mg/dL <40 mg/dl - HIGH CARDIOVASCULAR RISK > or =60 mg/dl - LOW CARDIOVASCULAR RISK LDL Cholesterol Xlenzfexsb838.8 130-159 mg/dl BORDERLINE HIGH 100-129 mg/dl NEAR OR ABOVE OPTIMAL >190 mg/dl VERY HIGH 160-189 mg/dl HIGH <100 mg/dl OPTIMAL VLDL CHOLESTEROL9.2Chol HDL Ratio3.5 4.4 - 7.1 AVERAGE RISK >11.0 HIGH RISK 3.3 - 4.4 LOW RISK 7.1 - 11.0 MODERATE RISK Performing Lab:see noteML - [facility] LBGLYCOHEMOGLOBIN A1C Reviewed date:07/10/2024 03:06:13 PM Interpretation: Performing Lab: Notes/Report: [facility] ,Glycohemoglobin A1C4.74.5-6.2 % ACTION SUGGESTED ADA RECOMMENDED LIMIT 4.0 - 6.0 ADA THERAPEUTIC TARGET < 7.0 > 7.0 Estimated Average Efptefy79Aqgjmglmqb Lab:see noteML - [facility] LB FREE T3 Reviewed date:07/10/2024 03:06:13 PM Interpretation: Performing Lab: Notes/Report: [facility] ,Free T32.262.18-3.98 pg/mLPerforming Lab:see noteML - [facility] LB CBC AUTO DIFF Reviewed date:07/10/2024 03:06:13 PM Interpretation: Performing Lab: Notes/Report: [facility] ,White Blood Count5.94.0-11.0 10 3/uLRed Blood Count4.264.20-5.40 10 6/uL Fihuceunqv15.212.0-16.0 g/iSNseujtfiwl42.236.0-48.0 %Mean Corpuscular Pbhfvr89.0 81.0-99.0 fLMean Corpuscular Lpvczvwpqu15.026.7-34.0 pgMean Corpuscular HGB Conc 33.729.9-35.2 g/dLRed Cell Distribution Width13.611.0-15.0 %Platelet Rhdim160 150-450 10 3/uLMean Platelet Hqivfq39.99.5-13.5 fLNeutrophils Percent Auto72.4 43.0-75.0 %Lymphocytes Percent Auto21.220.5-60.0 %Monocytes Percent Auto5.11.7- 12.0 %Eosinophils Percent Auto0.70.9-7.0 %Basophils Percent Auto0.30.2-2.0 % Immature Granulocytes Pct Auto0.30.0-0.5 %Neutrophils Absolute Auto4.31.4-6.5 10 3/uLLymphocytes Absolute Auto1.31.2-3.8 10 3/uLMonocytes Absolute Auto0.30.3-0.8 10 3/uLEosinophils Absolute Auto0.00.0-0.7 10 3/uLBasophils Absolute Auto0.00.0- 0.1 10 3/uLImmature Granulocytes Abs Auto0.020.00-0.03 10 3/uLPerforming Lab:see noteML - [facility] LBCBC AUTO DIFF Reviewed date:06/24/2024 08:39:08 AM Interpretation: Performing Lab: Notes/Report: [facility] ,White Blood Count5.64.0-11.0 10 3/uLRed Blood Count4.374.20-5.40 10 6/uL Stymgacdij92.512.0-16.0 g/gKDnrgkqmsej66.736.0-48.0 %Mean Corpuscular Ppqdyb28.8 81.0-99.0 fLMean Corpuscular Hhrqlfquor16.926.7-34.0 pgMean Corpuscular HGB Conc 34.029.9-35.2 g/dLRed Cell Distribution Width13.211.0-15.0 %Platelet Uukcv001 150-450 10 3/uLMean Platelet Lmitdw73.99.5-13.5 fLNeutrophils Percent Auto60.4 43.0-75.0 %Lymphocytes Percent Auto30.820.5-60.0 %Monocytes Percent Auto7.01.7- 12.0 %Eosinophils Percent Auto1.10.9-7.0 %Basophils Percent Auto0.20.2-2.0 % Immature Granulocytes Pct Auto0.50.0-0.5 %Neutrophils Absolute Auto3.41.4-6.5 10 3/uLLymphocytes Absolute Auto1.71.2-3.8 10 3/uLMonocytes Absolute Auto0.40.3-0.8 10 3/uLEosinophils Absolute Auto0.10.0-0.7 10 3/uLBasophils Absolute Auto0.00.0- 0.1 10 3/uLImmature Granulocytes Abs Auto0.030.00-0.03 10 3/uLPerforming Lab:see noteML - [facility] LBDRUG SCREEN RAPID (URINE) Reviewed date:12/24/2024 09:02:54 AM Interpretation: Performing Lab: Notes/Report: [facility] ,Cannabinoid Screen UrineNEGATIVENEGATIVEPhencyclidine Screen UrineNEGATIVE NEGATIVECocaine Screen UrineNEGATIVENEGATIVEMethamphetamines Screen Urine NEGATIVENEGATIVEOpiate Screen UrineNEGATIVENEGATIVEAmphetamine Screen Urine POSITIVENEGATIVEBenzodiazepines Screen UrineNEGATIVENEGATIVETricyclic Antidepressant UrineNEGATIVENEGATIVEMethadone Screen UrineNEGATIVENEGATIVE Barbiturates Screen UrineNEGATIVENEGATIVEOxycodone Screen UrineNEGATIVENEGATIVE Buprenorphine Screen UrineNEGATIVENEGATIVE BUP (Buprenorphine): 10 ng/mL PCP (Phencyclidine): 25 ng/mL mAMP (Methamphetamine): 500 ng/mL THC (Cannabinoids): 50 ng/mL OPI (Opiates): 100 ng/mL THOMAS (Cocaine): 150 ng/mL OXY (Oxycodone): 100 ng/mL DRUG CLASS TEST SYSTEM CUT-OFF CONCENTRATIONS ARE BZO (Benzodiazepines): 150 ng/mL MTD (Methadone): 200 ng/mL BAR (Barbiturates): 200 ng/mL FOLLOWS: AMP (Amphetamine): 500 ng/mL TCA (Trycyclic Antidepressants): 300 ng/mL Performing Lab:see noteML - [facility] LBURIC ACID RAND URINE Reviewed date:08/04/2024 10:36:03 AM Interpretation: Performing Lab: Notes/Report: [facility] ,Uric Acid, Urine52.3Not Estab. mg/dL Performed at: - [facility] [place] [employer]: Claudio Lozano PhD, Phone: [phone] [address], [place] [phone] Performing Lab:see note - [facility] LBDRUG SCREEN RAPID (URINE) Reviewed date:07/28/2024 08:16:02 AM Interpretation: Performing Lab: Notes/Report: [facility] ,Cannabinoid Screen UrinePOSITIVENEGATIVEPhencyclidine Screen UrineNEGATIVE NEGATIVECocaine Screen UrineNEGATIVENEGATIVEMethamphetamines Screen Urine NEGATIVENEGATIVEOpiate Screen UrineNEGATIVENEGATIVEAmphetamine Screen Urine POSITIVENEGATIVEBenzodiazepines Screen UrineNEGATIVENEGATIVETricyclic Antidepressant UrineNEGATIVENEGATIVEMethadone Screen UrineNEGATIVENEGATIVE Barbiturates Screen UrineNEGATIVENEGATIVEOxycodone Screen UrineNEGATIVENEGATIVE Buprenorphine Screen UrineNEGATIVENEGATIVE PCP (Phencyclidine): 25 ng/mL BZO (Benzodiazepines): 150 ng/mL MTD (Methadone): 200 ng/mL BUP (Buprenorphine): 10 ng/mL DRUG CLASS TEST SYSTEM CUT-OFF CONCENTRATIONS ARE THOMAS (Cocaine): 150 ng/mL THC (Cannabinoids): 50 ng/mL mAMP (Methamphetamine): 500 ng/mL AMP (Amphetamine): 500 ng/mL FOLLOWS: TCA (Trycyclic Antidepressants): 300 ng/mL BAR (Barbiturates): 200 ng/mL OXY (Oxycodone): 100 ng/mL OPI (Opiates): 100 ng/mL Performing Lab:see noteML - [facility] LBCompliance Drug Analysis, Ur Reviewed date:08/04/2024 10:35:45 AM Interpretation: Performing Lab: Notes/Report: [facility] ,Summary Report (Summary)FINAL. cannabidiol (CBD) products. This test is not intended to Acetaminophen PRESENT UNEXPECTED Declared Medications: Drug Present not Declared for Prescription Verification of THC is most commonly herbal marijuana or marijuana-based [employer]: Aleskandra Cramer [facility], Phone: [phone] inaccuracies in the declared medications. Amphetamine 5492 EXPECTED ng/mg creat Creatinine 153 mg/dL >=20 Amphetamine (Adderall) ollay-3-qlsrlbyjlmwwjptlqqgk. Carboxy-THC is a metabolite of tetrahydrocannabinol (THC). Source medication. Trace amounts of THC can be present in hemp and Metoprolol PRESENT UNEXPECTED For clinical consultation, please call . following declared medications. Unexpected results may arise from [address] [place] [phone] distinguish between xynry-9-opfqaxusgjpwxckuwqez, the predominant Test Result Flag Units Ref Range Salicylate PRESENT UNEXPECTED TOXASSURE COMP DRUG ANALYSIS,UR Drug Present and Declared for Prescription Verification Carboxy-THC 14 UNEXPECTED ng/mg creat Performed at: [facility] form of THC in most herbal or marijuana-based products, and Note: The testing scope of this panel includes these medications: products, but THC is also present in a scheduled prescription Amphetamine is available as a schedule II prescription drug. The flagging and interpretation on this report are based on the Test Result Flag Units Performing Lab:see noteLC - [facility] LBPROF 14(COMP METB) Reviewed date:07/10/2024 03:06:13 PM Interpretation: Performing Lab: Notes/Report: [facility] ,Tlvqct101567-668 mmol/LPotassium3.63.5-5.1 mmol/OYahwhgrb98676-764 mmol/LCarbon Mpsmduw43.421.0-32.0 mmol/LAnion Gap13.1Zychgcz4864-465 mg/dLBlood Urea Nitrogen 11.07.0-18.0 mg/dLCreatinine0.670.55-1.02 mg/dLEstimated GFR ( Chelita>60 >=60 mL/min/1.73m 2Estimated GFR (Non- Anum>60>=60 mL/min/1.73m 2BUN Creatinine Ratio16.8Fbwfuva2.98.5-10.1 mg/dLBilirubin Total0.40.2-1.0 mg/dL Aspartate Amino Cqvwpcowhca4185-05 U/LAlanine Buepafiedbrtnlyp2750-82 U/L Alkaline Sbzljrrlqdy9878-639 U/LTotal Protein7.26.4-8.2 g/dLAlbumin Level3.93.4- 5.0 g/dLGlobulin3.3Albumin Globulin Ratio1.2Performing Lab:see noteML - [facility] LBCT abdomen pelvis w con Reviewed date:06/24/2024 08:39:08 AM Interpretation: Performing Lab: Notes/Report: Source Facility: [place] [address] CT Scan Report Signed Patient: JOY GAYLE MR#: [id number] : 1990 Acct:[id number] Age/Sex: 33 / F ADM Date: 06/23/24 Loc: ER Attending Dr: Ordering Physician: Luna Valentin Date of Service: 06/23/24 Procedure(s): CT abdomen pelvis w con Accession Number(s): [id number] cc: TIKI ZHENG [place] [address] Patient Name: JOY GAYLE MRN: [id number] date: 1990 Sex: F Assigned Patient Location: ER Current Patient Location: ER Accession/Order Number: [id number] Exam Date: 06/23/2024 22:13 Report Date: 06/23/2024 [...] FLAQUITA GRACE Date: 06/23/2024 22:57 Dictated By: Flaqutia Grace M.D. Signed By: 06/23/242258 DD/ 56 TD/TT: Internal Combustion Engineer:PROF Chen(COMP METB) Reviewed date:06/24/2024 08:39:08 AM Interpretation: Performing Lab: Notes/Report: [facility] ,Ydwgur957696-386 mmol/LPotassium3.33.5-5.1 mmol/ZLovofoqh67999-707 mmol/LCarbon Kipkvbq54.621.0-32.0 mmol/LAnion Gap13.4Bchbhvq6851-835 mg/dLBlood Urea Nitrogen 14.07.0-18.0 mg/dLCreatinine0.830.55-1.02 mg/dLEstimated GFR ( Chelita>60 >=60 mL/min/1.73m 2Estimated GFR (Non- Anum>60>=60 mL/min/1.73m 2BUN Creatinine Ratio16.6Finpgik0.78.5-10.1 mg/dLBilirubin Total0.40.2-1.0 mg/dL Aspartate Amino Uodcobqcydh7283-22 U/LAlanine Hcrkytzgpdkhsvgx5239-79 U/L Alkaline Ltjddlswrfc9547-976 U/LTotal Protein6.66.4-8.2 g/dLAlbumin Level3.53.4- 5.0 g/dLGlobulin3.1Albumin Globulin Ratio1.1Performing Lab:see noteML - [facility] LBLACTATE or LACTIC ACID Reviewed date:06/24/2024 08:39:08 AM Interpretation: Performing Lab: Notes/Report: [facility] ,Lactate/Lactic Acid0.90.4-2.0 mmol/LPerforming Lab:see noteML - [facility] LB Reason For Referral No Information Medications Medication SIG (Take, Route, Frequency, Duration) Notes Start Date End Date Status Clindamycin HCl 300 MG 1 capsule Orally QID; Dur ation: 7 days 5ActiveEpiPen 2-Dorian 0.3 MG/0.3MLas directed InjectionPRNActive Desvenlafaxine Succinate ER 25 MGTAKE 1 TABLET BY MOUTH EVERY DAY FOR 30 DAYS; Duration: 30ActiveOzempic (0.25 or 0.5 MG/DOSE) 2 MG/3ML0.25 Subcutaneous once weekly; Duration: 30 daysCompounded Zqutggj88/17/2023ActivepredniSONE 20 MG2 tablet Orally Once a day; Duration: 3 days5ActiveAdderall 15 MG1 tablet Orally Daily; Duration: 30 days5ActiveOndansetron HCl 4 MG1 tablet Orally Once a day prn; Duration: 30 days4ActiveNurtec 75 MG1 tablet on the tongue and allow to dissolve Orally daily as needed; Duration: 30 daysPRN Active Social History Tobacco Use: Social History Observation Description Date Details (start date - stop date) Never Smoker NA - NA Tobacco Use/Smoking Question Answer Notes Patient is a nonsmoker Alcohol Screen (Audit-C) Question Answer Notes Did you have a drink containing alcohol in the p ast year? Yes How often did you have 6 or more drinks on one occasion in the past year?Never (0 point)How many drinks did you have on a typical day when you were drinking in the past year?1 or 2 drinks (0 point)How often did you have a drink containing alcohol in the past year?Less than monthly (1 point)Foewbu9Qqsbqyyfrzhefd NegativeAUDIT-C (Standard) Question Answer Notes Did you have a drink containing alcohol in the p ast year? 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)Active confirmedProblemDisorder of meninges (61563798)Other disorders of meninges, not elsewhere classified (G96.19)ActiveconfirmedProblemDisorder of nasal sinus (disorder) (3152407)Other specified disorders of nose and nasal sinuses (J34.89) ActiveconfirmedProblemFatigue (17233126)Fatigue (R53.83)ActiveconfirmedProblem Migraine (60211180)Migraine (G43.909)ActiveconfirmedProblemAlopecia (74102445) Hair loss (L65.9)ActiveconfirmedProblemNear syncope (409169588)Near syncope (R55)ActiveconfirmedProblemRestless legs (04994105)Restless legs (G25.81)Active confirmedProblemNeck pain (92133453)Neck pain on right side (M54.2)Active confirmedProblemDifficulty swallowing (047303427)Difficulty swallowing (R13.10) ActiveconfirmedProblemMixed anxiety and depressive disorder (602887600)Anxiety and depression (F41.8)ActiveconfirmedProblemDisease caused by Severe acute respiratory syndrome coronavirus 2 (disorder) (102442386)COVID-19 virus infection (U07.1)ActiveconfirmedProblemUnable to concentrate (63980660)Unable to concentrate (R41.840)ActiveconfirmedProblemBody mass index 30+ - obesity (232117379)Body mass index [BMI] 30.0-30.9, adult (Z68.30)Activeconfirmed Vital Signs Blood pressure diastolic 82 mm Hg 01/26/2025 Hlbula92 in01/26/2025lood pressure mm Hg01/26/20252614Qjpcel667.4 lbs 01/26/2025BMI22.82 kg/m201/26/2025 Encounters Encounter Location Date Provider Diagnosis [facility] [address] [facility] [place] [address] 01/26/2025 Tiki Zheng Bee sting reaction T63.441A [facility] [address] [facility] [place] [address] 05/30/2024 Tiki Zheng Breast lump N63.0 ; Wellness examination Z00.00 and Lightheaded R42 [facility] [address] [place] [facility] [place] [address] 10/30/2024 Tiki Zheng Unable to concentrat e R41.840 and Migraine G43.909 [facility] [address] [facility] [place] [address] 05/19/2024 Tiki Zheng Unable to concentrat e R41.840 [facility] [address] [place] [facility] [place] [address] 06/09/2024 Tiki Zheng Breast lump N63.0 [facility] [address] [facility] [place] [address] 06/20/2024 Tiki Zheng [facility] [facility] [place] [address] 06/30/2024Pamela NormUnable to concentrate R41.840[facility] [facility] [place] [address]/23/2025Patobin Zheng [facility] [facility] [place] [address] 07/25/2024Pamelsamina ZhengEncounter for long-term current use of medication Z79.899 [facility] [facility] [place] [address] 08/06/2024Pamela CramerUnable to concentrate R41.840[facility] [facility] [place] [address]/21/2025Doug HoyUnable to concentrate R41.840[facility] [facility] [place] [address]/16/2025Doug HoyUnable to concentrate R41.840[place] [address] [facility] [place] [address]/12/2024Pamela CramerEncounter for long-term (current) drug use Z79.899[facility] [facility] [place] [address]/01/2025Pamela Norm [place] [address] [facility] [place] [address] 01/01/2025Pamela CramerUnable to concentrate R41.840[facility] [facility] [place] [address]/Pamela CramerUnable to concentrate R41.840[facility] [facility] [place] [address]/[facility]ramer[facility] [facility] [place] [address]/Pamela CramerUnable to concentrate R41.840 [facility] [facility] [place] [address] 04/17/2025Pamela CramerUnable to concentrate R41.840 Assessments Encounter Date Diagnosis (ICD Code) Assessment Notes Treatment Notes Treatment Clinical Notes Section Notes 01/26/2025 Bee sting reaction (ICD-10 - T63 .441A) fu if not oetoacxps49/02/2024Unable to concentrate (ICD-10 - R41.840)06/09/2024 Breast lump (ICD-10 - N63.0)06/30/2024Unable to concentrate (ICD-10 - R41.840) 07/25/2024Encounter for long-term current use of medication (ICD-10 - Z79.899) 08/06/2024Unable to concentrate (ICD-10 - R41.840)09/05/2024Unable to concentrate (ICD-10 - R41.840)12/01/2024Unable to concentrate (ICD-10 - R41.840) 12/22/2024Encounter for long-term (current) drug use (ICD-10 - Z79.899) 01/01/2025Unable to concentrate (ICD-10 - R41.840)02/04/2025Unable to concentrate (ICD-10 - R41.840)03/16/2025Unable to concentrate (ICD-10 - R41.840) 04/17/2025Unable to concentrate (ICD-10 - R41.840)05/30/2024reast lump (ICD-10 - N63.0)05/30/2024Wellness examination (ICD-10 - Z00.00)no recent wellness labs 10/30/2024Unable to concentrate (ICD-10 - R41.840) CSA signed, OARRS reviewed adderall helps at work wants to continue 6m fu 10/30/2024Migraine (ICD-10 - G43.909)med helps needs mhffpd3005/30/2024Lightheaded (ICD-10 - R42) take 1/2 tablet metoprolol BID for one week than stop continue monitor sx BP, HR fu as needed hx tachy labs increase water, electrolytes dont skip meals 05/30/2024Otherconsider decreasing Adderall dose with continued wt loss, Plan Of Treatment Pending Test Test Name Order Date CMP (COMPLETE METABOLIC PANEL) 3 CMP (COMPLETE METABOLIC PANEL) 4 HEMOGLOBIN A1C (GLYCO) 01/30/2023 HEMOGLOBIN A1C (GLYCO) 05/30/2024 INSULIN, TOTAL 05/30/2024 IRON, TOTAL 01/30/2023 LIPID PANEL (CHOL/TRIG/HDL/LDL) 01/31/20 23 LIPID PANEL (CHOL/TRIG/HDL/LDL) 05/30/20 24 CBC WITH DIFF (EXP 04/2025) 05/30/2024 CBC WITH DIFF (EXP 04/2025) 01/30/2023 VITAMIN D, 25 LEVEL (TOTAL) 01/30/2023 XR Chest PA and Lateral (Routine CXR) * 11/09/2022 URINE URIC ACID,RANDOM 12/22/2024 Insulin Level 01/30/2023 COMPLIANCE DRUG SCREEN 07/25/2024 COMPLIANCE DRUG SCREEN 12/22/[address] HEAD_NECK 03/04/[address] [...] Coverage Start Date Coverage End Date [employer] [address] [place] [id number] Hannah Gayle - patient is the insuredFRONTPATH NWNM PLBRS PIPEPO [address] [place], [place] [id number], RonaldSpouse - patient is the spouse of the insured Medications Administered Medication Instructions Date of Administration Dosage Notes Ketorolac Tromethamine 0 mgOrphenadrine Sidncrj530 mg Medical (General) History Medical History History [...] F41.8 Migraine G43.909 Surgical History Surgery Date(Month/Year) Left arm surgeryx2 Right Ovary bzbilgj8598Ziipkbaigduw2669R&C for endometriosisAblation T6,T7,T8 & THospitalization History Reason Date(Month/Year) see above
--- OUTSIDE RECORDS SUMMARY | 2025-05-18 07:50 | XMS_ITS | Patient Health Record ---
Author Organization Corporate Office Address [address] [place] [address] [address] [place] [address] Care Team Providers Care Hvac Sales Representative Name Role Phone ArpitAndrés ocasio Primary Care Provider Unavailab La Rodríguez Unavailable Reason For Referral No Information Medications Medication SIG (Take, Route, Frequency, Duration) Notes Start Date End Date Status Pamelor 25 MG 1 capsule Orally QHS; Duration: 30 day(s) 03/15/2016ActivePamelor 50 mg1 capsule at bedtime Orally Once a day; Duration: 30 day(s)06/21/2016ActiveNexplanon 68 MGSubcutaneousActiveOnzetra Xsail 11 MG/NOSEPC1 spray in each nostril as needed one time Nasally Once a day; Duration: 1 day(s)03/15/2016ActiveZomig 5 MG1 spray as needed Nasally Once a day; Duration: 30 day(s)04/13/2016ActiveImitrex 50 MG1 tablet as needed @ onset of migraine and may repeat in 1 hour if needed. max dose 100 mg per day Orally Twice a day; Duration: 30 days02/14/2017ActiveAmerge 2.5 mg1 tablet as needed one time Orally PRN at onset of migraine, no more than 2 in 24 hrs; Duration: 30 days04/13/2016ActiveDiclofenac Potassium 50 mg1 tablet Orally PRN for h/a onset; Duration: 30 day(s)04/13/2016ActiveLidocaine-Prilocaine 2.5-2.5 %as directed Externally every 8 hours as needed; Duration: 30 daysActive Problems Problem Type SNOMED Code ICD Code Onset Dates Problem Status W/U Status Risk Notes Problem Anxiety (42950303) Anxiety (F41.9) ActiveconfirmedProblemChronic migraine (897841965)Chronic migraine (G43.709) ActiveconfirmedProblemChronic intractable migraine without aura (286301865217369)Chronic migraine without aura, intractable, without status migrainosus (G43.719)ActiveconfirmedProblemOccipital neuralgia (38929570) Occipital neuralgia of left side (M54.81)ActiveconfirmedProblemAura (48029843) Aura (R29.818)Activeconfirmed Plan Of Treatment No Information Insurance Providers Payer Name Payer Address Payer Phone Subscriber Number Group Number Insured Name Patient Relationship to Insured Coverage Start Date Coverage End Date [employer] [address] [address] [place], [place] [address] [id number], BrittanySelf - patient is the insured 2016 Medications Administered Medication Instructions Date of Administration Dosage Notes IM PHENERGAN UP TO 50mg 09/05/201625 mgIM TORADOL PER 30 MG09/05/201630 mgIM Benadryl up to 50mg 09/05/201625 mg Medical (General) History Medical History History ICD Code Migraines AnxietyHeadachesSurgical History Surgery Date(Month/Year) Upper GI D&CHospitalization History Reason Date(Month/Year) PILAR Regalado-migraine 12/2015 None in the last six months. 10/25/16
--- OUTSIDE RECORDS SUMMARY | 2025-05-18 07:50 | XMS_ITS | CCD ---
Author Organization [facility] Care Team Providers Care Floor Scraper Name Role Phone Turowski, Mani Unavailable Unavailable UNKNOWN, PROVIDER Unavailable Unavailable Petrilla, Andrés Unavailable Unavailable Turowski, Amni Unavailable Unavailable UNKNOWN, PROVIDER Unavailable Unavailable Petrilla, Andrés Unavailable Unavailable UNKNOWN, PROVIDER Unavailable Unavailable Petrilla, Andrés Unavailable Unavailable Turowski, Mani Unavailable Unavailable UNKNOWN, PROVIDER Unavailable Unavailable Petrilla, Adnrés Unavailable Unavailable Turowski, Mani Unavailable Unavailable UNKNOWN, [...] Care Unavailable ME Procedure Practitioner Unavailab salvador Choi, Mark Unavailable Dorina Latif Unavailable Kevin Garcia [...] V Consulting Unavailable OMERO, AHMAD Admitting Unavailable WILLIAMEDUARDO ARRIETAELA Primary Care Unavailable OMERO, AHMAD Consulting Unavailable TIKI THOMAS Attending Unavailable TIKI THOMAS Admitting Unavailable TIKI THOMAS Primary Care Unavailable DARYL NICOLE Attending Unavailable NITZA Thomas Tiki Veliz Primary Care Provider MD Mark Choi Attending Provider [phone] NITZA Thomas Primary Care Provider DO Oh Aparicio Emergency Provider William Tikithania Veliz Primary Care Unavailable Mark Choi Attending Unavailable Mark Choi Admitting Unavailable Oh Aparicio Attending Unavailable Oh Aparicio Admitting Unavailable William Tiki Veliz Primary Care Unavailable Deniz Okeefe Admitting Unavailable Deniz Okeefe Attending Unavailable Provider, None Primary Care Unavailable Provider, None Primary Care Unavailable KRANTHI ACHARYA Admitting Unavailable KRANTHI ACHARYA Attending Unavailable Allergies Allergy ClassificationReported Allergen(s)Allergy TypeDate of OnsetReaction(s) FacilityPenicillins (antibiotic) (1 source)Penicillin; Translations: [PENICILLIN]Drug Urobxgn09-23-7587Xuo [facility] Repository (20 sources)Bee/Wasp/Ant venomPropensity to adverse reactionslocalized reaction [facility] Workstir Other (20 sources)PenicillinDrug AllergyhivesNortGeisinger-Bloomsburg Hospital Workstir Other (5 sources)Penicillins; Translations: [PENICILLINS]Drug allergy (disorder) 78-34-9741HejzwYebMercy Health West Hospital Repository (4 sources)BEE VENOM PROTEIN (HONEY BEE); Translations: [BEE VENOM PROTEIN (HONEY BEE)]Propensity to adverse reactions to drug (disorder)03-09-2015 localized reactionUnOhio[facility] Repository (1 source)PenicillinsDrug allergy (disorder)48-66-1355XqfkoklwrOhiohealth Doctors Hospital Repository Medications Current Medications MedicationDrug Class(es)DatesSig (Normalized)Sig (Original)amphetamine aspartate 3.75 mg / amphetamine sulfate 3.75 mg / dextroamphetamine saccharate 3.75 mg / dextroamphetamine sulfate 3.75 mg oral tablet (1 source)Central Nervous System StimulantStart: 12-59-4192bkdq 15 mg by mouth once dailyDextroamphetamine-Amphetamine Active 15 MG PO Daily October 16, 2023 12:00am24 hr desvenlafaxine succinate 25 mg extended release oral tablet (1 source)Serotonin and Norepinephrine Reuptake InhibitorStart: 72-84-0103zxro 25 mg by mouth once dailyDesvenlafaxine Succinate Active 25 MG PO Daily October 16, 2023 12:00ammetoprolol tartrate 25 mg oral tablet (20 sources)beta-Adrenergic BlockerStart: 17-49-9689lxuq 25 mg by mouth twice dailyMetoprolol Tartrate Active 25 MG PO Twice daily July 13, 2021 1:00am take 1 tablet by mouth every twelve hoursLopressor 50 MG 1 tablet with food Orally Twice a day ActiveMultivitamin preparation (3 sources)Start: 47-40-0825zfhe 1 tablet by mouth once dailyMultivitamin Active 1 TAB PO Daily July 13, 2021 1:00amondansetron 4 mg oral tablet (8 sources)Serotonin-3 Receptor AntagonistStart: 35-27-2817uhbx 4 mg by mouth every six hoursOndansetron Active 4 MG PO Q6H 14 October 16, 2023 12:00amStart: 09-31-6151ojhz 4 mg by mouth once dailyOndansetron Hcl Active 4 MG PO Daily October 16, 2023 12:00amStart: 01-18-2020 End: 05-23-0722Qorteosgkec Discontinued 4 MG PO every 6 to 8 hours 10 January 18, 2020 12:00am January 19, 2020 3:47pmpredniSONE 20 mg oral tablet (2 sources)predniSONE 20 MG 1 tablet Orally bid for 4 days, then once daily for 8 days Activerimegepant 75 mg disintegrating oral tablet (1 source)Start: 61-10-8980zidc 1 tablet by mouth once dailyRimegepant (Nurtec Odt) 75 mg tablet,disintegrating Active 75 MG PO Daily October 16, 2023 12:00am Semaglutide (Ozempic) 2 mg/dose (8 mg/3 mL) pen injector (1 source)Start: 59-00-8003xajshg 2 mg by subcutaneous injection every week Semaglutide (Ozempic) 2 mg/dose (8 mg/3 mL) pen injector Active 2 MG SUBCUT every week October 16, 2023 12:00amSUMAtriptan 25 mg oral tablet (20 sources)Serotonin-1b and Serotonin-1d Receptor Agonisttake 1 tablet by mouth every two hours as needed, then take 1 tablet by mouth twice daily as needed Imitrex 25 MG 1 tablet at least 2 hours between doses as needed Orally Twice a day ActiveThyroid (Pork) (Stilwell Thyroid) 90 mg tablet (1 source)Start: 69-60-7827gknh 1 tablet by mouth once dailyThyroid (Pork) (Stilwell Thyroid) 90 mg tablet Active 90 MG PO Daily December 06, 2022 12:00am thyroid (group home) 90 mg oral tablet (2 sources)Start: 67-88-6488fxja 1 tablet by mouth once dailyThyroid (Pork) (Stilwell Thyroid) 90 mg tablet Active 90 MG PO Daily December 06, 2022 12:00am Completed/Discontinued Medications MedicationDrug Class(es)DatesSig (Normalized)Sig (Original)acetaminophen 325 mg / HYDROcodone bitartrate 5 mg oral tablet (3 sources)Opioid AgonistStart: 01-18-2020 End: 18-02-5610qiqi 1 tablet by mouth every four to six hoursHydrocodone- Acetaminophen ([place]) 5-325 mg Tablet Discontinued 1 TAB PO EVERY 4-6 HOURS 7 3 January 18, 2020 July 13, 2021 11:53amBotulinum Toxin Type A (20 sources)Acetylcholine Release InhibitorStart: 87-20-8513Zyzog Mar, 10 mLStart: 16-48-8717Suawt Nov, 155 unitsStart: 75-22-2555Runfl Nov, 155 UStart: 34-90-9653Ismcs Aug, 10 mLStart: 47-26-0588Zqlof Nov, 10 mL24 hr buPROPion hydrochloride 150 mg extended release oral tablet (3 sources)AminoketoneStart: 01-19-2020 End: 90-44-5278cbwf 1 tablet by mouth once dailyBupropion Hcl (Wellbutrin Xl) 150 mg tablet extended release 24 hr Discontinued 150 MG PO Daily January 19, 2020 12:00am July 13, 2021 11:53amcephalexin 500 mg oral capsule (20 sources)Cephalosporin Antibacterialtake 2 capsules by mouth every twelve hoursCephalexin 500 MG 2 cap(s) Orally bid Not-Taking/PRNcetirizine hydrochloride 10 mg oral tablet (20 sources)Histamine-1 Receptor AntagonistStart: 09-28-2021 End: 17-07-0582qnfq 1 tablet by mouth once dailyCetirizine (Zyrtec) 10 mg Tablet Discontinued 10 MG PO Daily September 28, 2021 12:00am October 16, 2023 12:13pm citalopram 10 mg oral tablet (3 sources)Serotonin Reuptake InhibitorStart: 01-19-2020 End: 70-90-4286qytu 1 tablet by mouth once dailyCitalopram (Celexa) 10 mg tablet Discontinued 10 MG PO Daily January 19, 2020 12:00am June 11:53am doxycycline hyclate 100 mg oral capsule (3 sources)Tetracycline-class DrugStart: 09-07-2021 End: 02-89-2510etfz 100 mg by mouth once dailyDoxycycline Hyclate Discontinued 100 MG PO Daily September 07, 2021 12:00am December 06, 2022 9:35amescitalopram 20 mg oral tablet (3 sources)Serotonin Reuptake InhibitorStart: 07-13-2021 End: 00-17-8709lrmr 1 tablet by mouth once dailyEscitalopram Oxalate (Lexapro) 20 mg Tablet Discontinued 20 MG PO Daily July 13, 2021 1:00am July 13, 2021 11:59amfexofenadine hydrochloride 180 mg oral tablet (3 sources)Histamine-1 Receptor AntagonistStart: 09-28-2021 End: 26-88-1792nsmv 1 tablet by mouth once dailyFexofenadine (Lorena Allergy) 180 mg Tablet Discontinued 180 MG PO Daily September 28, 2021 12:00am December 06, 2022 9:35amibuprofen 800 mg oral tablet (3 sources)Nonsteroidal Anti-inflammatory DrugStart: 07-02-2018 End: 84-20-4024ifuy 800 mg by mouth three times dailyIbuprofen Discontinued 800 MG PO Three times daily July 02, 2018 1:00am January 15, 2020 8:18am levonorgestrel 0.128311 mg/hr intrauterine system (3 sources)Progestin, Progestin-containing Intrauterine DeviceStart: 01-15-2020 End: 56-40-2276Ofugdqvzagsmop (Anjana) 14 mcg/24 hrs (3 yrs) 13.5 mg Intrauterine Device Discontinued 1 DEVICE INTRAUTERI Once January 15, 2020 12:00am July 13, 2021 11:54ammethylPREDNISolone (20 sources)CorticosteroidStart: 52-63-0322Encn-Medrol 80 mg Feb, 80 mg phentermine hydrochloride 37.5 mg oral tablet (6 sources)Sympathomimetic Amine AnorecticStart: 09-07-2021 End: 43-97-5059oydb 1 tablet by mouth once dailyPhentermine (Adipex-P) 37.5 mg tablet Discontinued 37.5 MG PO Daily September 07, 2021 12:00am October 16, 2023 12:17pmStart: 01-15-2020 End: 01-03-3672xyti 1 tablet by mouth once dailyPhentermine (Adipex-P) 37.5 mg Tablet Discontinued 37.5 MG PO Daily January 15, 2020 12:00am 2021 11:54ampromethazine hydrochloride 25 mg oral tablet (6 sources)PhenothiazineStart: 01-16-2020 End: 54-81-9519shvo 25 mg by mouth every four to six hoursPromethazine Discontinued 25 MG PO EVERY 4-6 HOURS 12 January 16, 2020 12:00am January 19, 2020 3:33woFZINRFV1 Amitriptyline HCL 2%, Capsaicin 0.025%, Clonidine HCL 0.23%, Gabapentin 6%, Lidocaine HCL 5% (20 sources)Start: 05-59-0965UNGGNXD5 Amitriptyline HCL 2%, Capsaicin 0.025%, Clonidine HCL 0.23%, Gabapentin 6%, Lidocaine HCL 5% as directed Topical rub 1-2 grams every 6-8 hours as needed for 30 days Mar, Not-Taking/PRNStart: 80-55-6042CNHBIJE2 Amitriptyline HCL 2%, Capsaicin 0.025%, Clonidine HCL 0.23%, Gabapentin 6%, Lidocaine HCL 5% as directed Topical rub 1-2 grams every 6-8 hours as needed for 30 days Mar, Not-TakingStart: 69-62-8155Alkzo: 16-88-4245BNVWKZR0 Amitriptyline HCL 2%, Capsaicin 0.025%, Clonidine HCL 0.23%, Gabapentin 6%, Lidocaine HCL 5% as directed Topical rub 1-2 grams every 6-8 hours as needed for 30 days Mar, Activetriamcinolone acetonide 40 mg/ml injectable suspension (20 sources)CorticosteroidStart: 27-23-4610Sfonuam-40 Aug, 60 mgStart: 39-97-0090Dctudrt -40 mg Dec, 60 mg Problems Active Problems Problem ClassificationProblemDateDocumented DateEpisodic/ChronicAbdominal pain (9 sources)Epigastric pain; Translations: [Unspecified abdominal pain]Onset: 911244-69-1776UydhkkllNmnlgzcutl disorders (20 sources)Adjustment disorder with anxious mood; Translations: [Adjustment disorder with anxiety]ChronicAnxiety disorders (20 sources)Anxiety disorder, unspecified; Translations: [Claustrophobia]Onset: 89-65-4399JmsngcsUgzzdtjmtkgzu of surgical procedures or medical care (6 sources)Headache following lumbar puncture; Translations: [Other reaction to spinal and lumbar puncture]68-52-2423KqwylcclLesdxcfezd and other anemia (2 sources)Iron deficiency anemia secondary to blood loss (chronic); Translations: [Iron deficiency anemia secondary to blood loss (chronic)]Onset: 43-20-6803XcgcdpxEmmeelfausatr symptoms and ill-defined conditions (1 source)Personal history of urinary (tract) infections; Translations: [PERS HX URINARY TRACT INFECTIONS]Onset: 89-69-2642ZnnkuzqeEiewnjad, including migraine (20 sources)Migraine, unspecified, not intractable, without status migrainosus; Translations: [Migraine withoutaura, intractable, without status migrainosus] Onset: 02-02-2017 Resolved: 66-49-9384EuobovsYpubhyef, including migraine (6 sources)Headache; Translations: [Headache]Onset: 144458-56-1367Dammcbav Inflammatory diseases of female pelvic organs (4 sources)Acute vaginitis; Translations: [ACUTE VAGINITIS]Onset: 11-13-2022 EpisodicMenstrual disorders (1 source)Excessive and frequent menstruation with irregular cycle; Translations: [Excessive and frequent menstruation with irregular cycle]Onset: 58-38-3491WtgznunLseb disorders (20 sources)Recurrent major depressive episodes, mild ; Translations: [Major depressive disorder, recurrent, mild]ChronicMood disorders (2 sources)Major depressive disorder, single episode, unspecified; Translations: [Major depressive disorder, single episode, unspecified]Onset: 90-95-6842Wqgfk aftercare (1 source)Other four slide machine setter (current) drug therapy; Translations: [OTH CARE HOME CURRENT DRUG THERAPY]Onset: 12-42-5817PjqwlteeYbdtf connective tissue disease (20 sources)Extensor tenosynovitis of wrist; Translations: [Other synovitis and tenosynovitis, left hand]EpisodicOther connective tissue disease (20 sources)Radial styloid tenosynovitis; Translations: [Radial styloid tenosynovitis [de Quervain]]EpisodicOther connective tissue disease (10 sources)Myalgia, other siteOnset: 11-11-2021 Resolved: 36-89-5487LultaxppBwbgv gastrointestinal disorders (2 sources)Irritable bowel syndrome without diarrhea; Translations: [Irritable bowel syndrome without diarrhea]Onset: 10-76-9719TbuegkyYeqri lower respiratory disease (1 source)Personal history of pneumonia (recurrent); Translations: [PERSONAL HX OF PNEUMONIA RECURRENT]Onset: 32-67-6995WovdgbpdEgcdy nervous system disorders (20 sources)Cerebral cyst; Translations: [Cerebral cysts]ChronicOther nervous system disorders (20 sources)Arachnoid cyst; Translations: [Cerebral cysts]ChronicOther nervous system disorders (20 sources)Chronic pain; Translations: [Other chronic pain]43-20-5312Wrpakyb Other nervous system disorders (20 sources)Other chronic pain; Translations: [Other chronic pain]Onset: 03-14-2021 Resolved: 12-10-3264PygqbffLkqwt nervous system disorders (20 sources)Lesion of radial nerve; 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, left upper limb]ChronicOther nervous system disorders (5 sources)Lesion of radial nerve, left upper limb; Translations: [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]Onset: 04-08-2021 Resolved: 40-23-1743CyxlxvhSlfrd nervous system disorders (1 source)Cerebral cystsOnset: 07-06-2021 Resolved: 84-68-4360TkncnpuYojuz non-traumatic joint disorders (2 sources)Pain in left elbow; Translations: [Pain in left elbow]Onset: 07-86-1073XlvdizqcHhfxv nutritional; endocrine; and metabolic disorders (7 sources)Obesity; Translations: [Obesity, unspecified]ChronicOther upper respiratory infections (1 source)Acute upper respiratory infection, unspecified; Translations: [ACUTE UP RESPIRATORY INFECTION UNS]Onset: 32-52-2700NoqdkzllEmnqcohsqhj; intervertebral disc disorders; other back problems (20 sources)Cervical spondylosis; Translations: [Spondylosis without myelopathy or radiculopathy, cervical region]Onset: 06-06-2021 Resolved: 49-36-1213NsjhbtiVxcgnptawfk; intervertebral disc disorders; other back problems (20 sources)Cervico-occipital neuralgia; Translations: [Occipital neuralgia] Onset: 03-14-2021 Resolved: 73-93-0282EmhrdxeeOpkkzmq and strains (20 sources)Sprain of left wrist; Translations: [Unspecified sprain of left wrist, initial encounter]Onset: 04-08-2021 Resolved: 33-81-6114KqcvietnQiakuweplwyx (2 sources)Family history of familial hypercholesterolemia; Translations: [Family history of familial hypercholesterolemia]Onset: 26-77-3096Oeaftlxfppsm (3 sources)ACUTE COUGH; Translations: [ACUTE COUGH]Onset: 28-80-2726Kyhuzvqotqws (3 sources)COUGH, UNSPECIFIED; Translations: [COUGH, UNSPECIFIED]Onset: 22-94-6634Oobyqqilnptr (3 sources)CONTACT W/AND (SUSP) EXPOS COVID-19; Translations: [CONTACT W/AND (SUSP) EXPOS COVID-19]Onset: 05-27-2022 Past or Other Problems Problem ClassificationProblemDateDocumented DateEpisodic/ChronicAllergic reactions (2 sources)Bee allergy status; Translations: [Bee allergy status]Onset: 80-57-0990NbbzjxhpNomepsfbvw and other anemia (1 source)Anemia, unspecified; Translations: [ANEMIA UNSPECIFIED]Onset: 29-61-6124GecjqgzoJoxai and electrolyte disorders (2 sources)Dehydration; Translations: [Dehydration]Onset: 34-79-1275Bcscfhvp Gastritis and duodenitis (3 sources)Gastritis, unspecified, without bleeding; Translations: [Gastritis, unspecified, without bleeding]Onset: 21-21-9396EcoodaczIzxqhbftduaszwhf hemorrhage (4 sources)Hemorrhage of anus and rectum; Translations: [Hematemesis]Onset: 30-23-3511DqucleyaAezqgtmrkwe (2 sources)First degree hemorrhoids; Translations: [First degree hemorrhoids] Onset: 40-36-5819QwptfvqeNvyssji and fatigue (1 source)Other fatigue; Translations: [OTHER FATIGUE]Onset: 89-05-8627Hsdzbslz Nausea and vomiting (8 sources)Nausea; Translations: [Nausea with vomiting, unspecified]Onset: 21-48-7274XrqsrvegZbrknlaztlg chest pain (2 sources)Chest pain, unspecified; Translations: [Chest pain, unspecified] Onset: 27-64-4952ZpcxdrylCgdci and unspecified benign neoplasm (1 source)Benign neoplasm of peripheral nerves and autonomic nervous system, unspecified; Translations: [BENIGN YAW PERIPH NERVES AND ANS UNS]Onset: 65-58-6508OnudycabCdecy connective tissue disease (1 source)Other synovitis and tenosynovitis, left hand; Translations: [Extensor tenosynovitis of left wrist M65.842]Onset: 04-08-2021 Resolved: 55-26-2124NcxyeotvFpvex connective tissue disease (1 source)Radial styloid tenosynovitis [de Quervain]; Translations: [De Quervain's disease (tenosynovitis) M65.4]Onset: 04-08-2021 Resolved: 69-39-8147GuhrqanjEytvp connective tissue disease (1 source)Pain in left handOnset: 10-18-2021 Resolved: 24-70-1152CdjyvczbWrpxs connective tissue disease (4 sources)Other enthesopathies, not elsewhere classified; Translations: [OTHER ENTHESOPATHIES NEC]Onset: 65-20-4514FavqzvoxWvpys connective tissue disease (1 source)Other muscle spasm; Translations: [OTHER MUSCLE SPASM]Onset: 48-74-0394KwxbmhqxLejlx disorders of stomach and duodenum (2 sources)Other diseases of stomach and duodenum; Translations: [Other diseases of stomach and duodenum]Onset: 69-79-3755IpzqkbwrXpncb gastrointestinal disorders (2 sources)Diarrhea, unspecified; Translations: [Diarrhea, unspecified]Onset: 06-12-9212AtmybttpLgjid nutritional; endocrine; and metabolic disorders (4 sources)Abnormal weight gain; Translations: [ABNORMAL WEIGHT GAIN]Onset: 43-83-1354YgshzawdAsxdj screening for suspected conditions (not mental disorders or infectious disease) (4 sources)Abnormal results of thyroid function studies; Translations: [ABNORMAL RESULTS THR FUNCTION STDY]Onset: 53-32-2988PztdihzkXtbwd upper respiratory disease (1 source)Nasal congestion; Translations: [NASAL CONGESTION]Onset: 05-27-2022 EpisodicResidual codes; unclassified (1 source)Acquired absence of both cervix and uterus; Translations: [ACQUIRED ABSENCE BOTH CERVIX AND UTERUS]Onset: 87-61-2814NrlunbzjZpudvavrubme (4 sources)Family history of other mental and behavioral disorders; Translations: [Family history of ischemic heart disease and other diseases of the circulatory system]Onset: 33-26-1701KlicifmzTldtdhjjrmpg (1 source)ACUTE COUGH; Translations: [ACUTE COUGH]Onset: 77-53-4381Fhjzdmnnbjzd (1 source)COUGH, UNSPECIFIED; Translations: [COUGH, UNSPECIFIED]Onset: 62-61-5105Lixhoszbwvli (1 source)CONTACT W/AND (SUSP) EXPOS COVID-19; Translations: [CONTACT W/AND (SUSP) EXPOS COVID-19]Onset: 05-22-2022 Results Test NameValueInterpretationReference RangeFacilityEmpye Health Noteon 41-85-9637Duexeqnn Health Note [id number]#1.00[facility] Employee Health [id number]#1.00OTVeterans Health AdministrationEmployee Health Note [id number]#1.00[facility] Employee Health [id number]#1.00[facility] Note [id number]#1.00[facility] Employee Health [id number]#1.00[facility] Note [id number]#1.00[facility] Employee Health [id number]#1.00[facility] Note [id number]#1.00[facility] Employee Health [id number]#1.00[facility] Note [id number]#1.00[facility] Coding Summaryon 12-05-9255Flozde SummaryHTMLBase 64 UmlxgdkbCTp5oTq+PGhlYWQ+OK1YGXLyN57hwFRpxH0pL9QNWTzFGrysRLETIVfSRoUmaeDzSJ7wkDWi ZXJu [file] YXB (more content not included)...[facility] HospitalCoding Summaryon 34-65-1209Uyfxwi SummaryHTMLBase 64 QsqwnaooBFi1nWb+PGhlYWQ+LT8YYVGxQ50eyGCceG3dT0XKJEvMAwgdCAGHWNrCUnDiuwCdFA3fiQKl ZXJu [file] YXB (more content not included)...[facility] Summaryon 34-02-8633GY [facility] [address], [place] [id number] Clinical Summary PERSON INFORMATION Name: TORREY GAYLE Age: 33 Years Sex: FEMALE : 1990 MRN: Acct#: Visit Reason: Medical screening exam; [facility] F/U - LEFT ARM INJURY Arrival: 04/25/2024 16:23:07 Discharge: 04/25/2024 17:25:00 LOS: 000 01:02 Check In: 04/25/2024 16:23:07 Checkout: 04/25/2024 17:25:00 Address: [address] [place] [address] PCP: Provider, None PROVIDER INFORMATION Provider Role [...] - Patient/family/caregiver verbalizes understanding of instructions given Comment:[facility] Patient Summaryon 75-11-4697CL Patient Summary [facility] ? Urgent Care [address], [place] [id number] PATIENT DISCHARGE INSTRUCTIONS Patient Information Name: TORREY GAYLE Age: 33 Years Date of : 1990 Reason For Visit: Medical screening exam; [facility] F/U - LEFT ARM INJURY Arrival Time: 04/25/2024 16:23:07 Primary Care Physician: Provider, None Attending Physician: KRANTHI ACHARYA Comment: Patient Education With: Address: When: Return to this practice Comments: as scheduled in 3 months Medication Information: The exam and treatment you received today in the [facility] Emergency Department were for an urgent problem and are not intended as complete care. It is important for you to follow up with a doctor, nurse practitioner, or physician?s culture media laboratory assistant for ongoing care. If your symptoms become worse or you donot improve as expected and you are unable [...] so we can reach you if necessary. [facility] Department has provided you with a complete list of medications post discharge. Please inform your cigarette and filter chief inspector/provider of your visit and for further instruction [...] Left wrist sprain (S63.502A) Medical screening exam ([id number]) Other synovitis and tenosynovitis, left hand (M65.842) [...] legal documents Reason for Visit: Medical exam- [facility] -to establish with new POR, initial [...] adults) NO Whooping Cou (more content not included)...[facility]- Provideron 14-29-8317Vxsbgm Care Note- ProviderPatient: TORREY GAYLE Age: 33 years Sex: FEMALE : 1990 Associated Diagnoses: Disorder of left radial nerve; Cellulitis of left upper limb; De Quervain's tenosynovitis, left; Other synovitis and tenosynovitis, left hand; Lateral epicondylitis of left elbow; Left wrist sprain Author: Deniz Okeefe PA-C History of Present Illness OCCUPATIONAL HEALTH FOLLOW-UP Date of injury: 04/07/2019 Claim #: [id number] Employer: [place] Mechanism of Injury: Turning a patient and [...] record is no longer practicing at the [facility]. 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 She had immediate pain. A co- worker actually had to help free her from the patient. She completed her shift of work, as she only had 20 minutes left of her shift, but reported the following day to get evaluated because of persisting pain. X-rays were non acute. She followed with Occupational Health at [facility]. She was referred to Dr. Nicole with persisting symptoms. She had injections which were not particularly helpfuland then proceeded to have 2 surgeries. She has now been seeing pain management for the past 2 years in [place]. She has tried PT, creams, injections, medications including OTC Motrin/Tylenol, Lyrica, Neurontin, muscle relaxers and Mobic/Celebrex all without good relief and so she takes no medications for this. She states her most recent testing was a bone scan done on 04/03 in [place] and it was reported as normal. 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 With this she reports elbow pain seems [...] no skin rashes or lesions. There are noother associated symptoms. It is made worse with [...] rhonchi or wheeze. EXT (more content not included)...[facility] 33-[facility]-1934NfyezkProv[facility] ? 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 It is important for you to follow up with a doctor, nurse practitioner, or physician?s culture media laboratory assistant for ongoing care. If your symptoms [...] so we can reach you if necessary. [facility] has provided you with a complete list of medications post discharge. Please inform your cigarette and filter chief inspector/provider of your visit and for further instruction [...] Centers for Disease Control and Prevention February 2014[facility] Alanine aminotransferase [Enzymatic activity/volume] in Serum or PlasmaOrdered By: Oh Aparicio on 05-74-7647MDU [Catalytic activity/Vol]20 U/L7-52 [facility] HospitalAlbumin [Mass/volume] in Serum or Plasma by Bromocresol green (BCG) dye binding methoOrdered By: Oh Aparicio on 37-88-5043Aiuehjk BCG dye [Mass/Vol]4.3 g/dL3.5-5.7FSelect Medical Specialty Hospital - CantonAlkaline phosphatase [Enzymatic activity/volume] in Serum or PlasmaOrdered By: Oh Aparicio on 12-59-7071XPJ [Catalytic activity/Vol]54 U/L34-104 [facility] Doctors HospitalAspartate aminotransferase [Enzymatic activity/volume] in Serum or PlasmaOrdered By: Oh Aparicio on 10-16-2023 AST [Catalytic activity/Vol]17 U/R35-68HgjjtuoldOhiohealth Doctors HospitalBasic Metabolic Panelon 75-97-9012Zsphr gap [Moles/Vol]12.0 mmol/LNormal6.0-15.0The [facility] Physician GroupComment on above:Order Comment: waiterPerformed By: #### BMP, LIPASE, SCAN CBC, HEPATIC #### [facility] [address] [place] [address] USACalcium [Mass/Vol]9.4 mg/dLNormal8.6-10.3The [facility] Physician GroupComment on above:Order Comment: waiterPerformed By: #### BMP, LIPASE, SCAN CBC, HEPATIC #### [facility] [address] [place] [address] USAChloride [Moles/Vol]103 mmol/HDeuseo71-508Mve [facility] Physician GroupComment on above:Order Comment: waiterPerformed By: #### BMP, LIPASE, SCAN CBC, HEPATIC #### [facility] [address] [place] [address] USACO2 [Moles/Vol]30.1 mmol/AWaszwe72.0-31.0The [facility] Physician GroupComment on above:Order Comment: waiterPerformed By: #### BMP, LIPASE, SCAN CBC, HEPATIC #### [facility] [address] [place] [address] USACreatinine [Mass/Vol]0.67 mg/dLNormal0.60-1.20The [facility] Physician GroupComment on above:Order Comment: waiterPerformed By: #### BMP, LIPASE, SCAN CBC, HEPATIC #### [facility] [address] [place] [address] USACreatinine Clr Calc Etkqrlam427.48NormalThe [facility] Hospital Physician GroupComment on above:Order Comment: waiterPerformed By: #### BMP, LIPASE, SCAN CBC, HEPATIC #### [facility] [address] [place] [address] USAGFR/1.73 sq M.predicted MDRD (S/P/Bld) [Vol rate/Area] mL/min/{1.73_m2}NormalThe [facility] Physician GroupComment on above:Order Comment: waiterPerformed By: #### BMP, LIPASE, SCAN CBC, HEPATIC #### [facility] [address] [place] [id number] USAGlucose [Mass/Vol]75 mg/yNIptmnd42-956Tyx [facility] Physician GroupComment on above:Order Comment: waiterResult Comment: Random Glucose Reference Range is dependent on time and content of last meal. Glucose of more than 200 mg/dL in a nonstressed, ambulatory subject supports the diagnosis of Diabetes Mellitus. ADA recommended reference rangePerformed By: #### BMP, LIPASE, SCAN CBC, HEPATIC #### [facility] [address] [place] [address] USAPotassium [Moles/Vol]4.1 mmol/LNormal3.5-5.1The [facility] Physician GroupComment on above:Order Comment: waiterPerformed By: #### BMP, LIPASE, SCAN CBC, HEPATIC #### [facility] [address] [place] [address] USASodium [Moles/Vol]141 mmol/ALnzgoo192-855Grp [facility] Physician GroupComment on above:Order Comment: waiterPerformed By: #### BMP, LIPASE, SCAN CBC, HEPATIC #### [facility] [address] [place] [address] USAUrea nitrogen [Mass/Vol]8 mg/dLNormal7-25The [facility] Physician GroupComment on above:Order Comment: waiterPerformed By: #### BMP, LIPASE, SCAN CBC, HEPATIC #### [facility] [address] [place] [address] USABasophils Auto (Bld) [#/Vol]Ordered By: Oh Aparicio on 36-76-4752Xemoyancn (Bld) [#/Vol]0.0 10*3/uL0.0-0.2FSelect Medical Specialty Hospital - CantonBasophils/100 WBC Auto (Bld)Ordered By: Oh Aparicio on 10-16-2023 Basophils/100 WBC (Bld)0.3 %.[facility] Doctors HospitalBilirubin Test strip Ql (U)Ordered By: Oh Aparicio on 43-33-0170Tbzqgoesg Ql (U)Negative NegativeOhiohealth Doctors HospitalBilirubin.direct [Mass/volume] in Serum or PlasmaOrdered By: Oh Aparicio on 50-41-2608Gqbphsbbb.direct [Mass/Vol] 0.10 mg/dL0.03-0.18FSelect Medical Specialty Hospital - CantonBilirubin.total [Mass/volume] in Serum or PlasmaOrdered By: Oh Aparicio on 10-16-2023 Bilirubin [Mass/Vol]0.4 mg/dL0.3-1.0[facility] Doctors HospitalCT abdomen pelvis w conon 69-93-3683NM abdomen pelvis w [facility] [place] [address] [place] [address] CT Scan Report Signed Patient: Torrey Antony MR#: [id number] : 1990 Acct:[id number] Age/Sex: 32 / F ADM Date: 10/16/23 Loc: ER Room: Type: [facility] ER Attending Dr: Copies to: [...] Anastasia Nunez M.D.10/16/2023 2:09 PM Dictation Location: [place] [address] Transcribed By: DIANA 10/16/23 1409 Dictated By: Anastasia Nunez MD 10/16/23 1355 Signed By: 10/16/23 1409[facility] Physician GroupCalcium [Mass/volume] in Serum or PlasmaOrdered By: Oh Aparicio on 65-75-1731Gbnyzhk [Mass/Vol]9.4 mg/dL 8.6-10.3FSelect Medical Specialty Hospital - CantonCarbon dioxide, total [Moles/volume] in Serum or PlasmaOrdered By: Oh Aparicio on 55-74-0031DL2 [Moles/Vol]30.1 mmol/L21.0-31.0[facility] Doctors HospitalChloride [Moles/volume] in Serum or PlasmaOrdered By: Oh Aparicio 10-03-2202Szdkiifg [Moles/Vol]103 mmol/Q99-059OlczreurjOhiohealth Doctors HospitalColor Auto (U)Ordered By: Oh Aparicio on 10-69-3929Ogbtn (U)YellowYellowOhiohealth Doctors Hospital Creatinine [Mass/volume] in Serum or PlasmaOrdered By: Oh Aparicio 97-17-9984Avxmrywhym [Mass/Vol]0.67 mg/dL0.60-1.20[facility] Doctors HospitalEosinophils Auto (Bld) [#/Vol]Ordered By: Oh Aparicio on 10-16-2023 Eosinophils (Bld) [#/Vol]0.2 10*3/uL0.0-0.45[facility] Eosinophils/100 WBC Auto (Bld)Ordered By: Oh Aparicio on 10-16-2023 Eosinophils/100 WBC (Bld)2.5 %.[facility] Doctors HospitalErythrocyte distribution width Auto (RBC) [Ratio]Ordered By: Oh Aparicio on 10-16-2023 Erythrocyte distribution width (RBC) [Ratio]13.7 %11.9-15.3FSelect Medical Specialty Hospital - CantonGlobulin Calc (S) [Mass/Vol]Ordered By: Oh Aparicio 57-98-8910Ytpkeqnj (S) [Mass/Vol]2.3 g/dLOhiohealth Doctors Hospital Glucose [Mass/volume] in Serum or PlasmaOrdered By: Oh Aparicio on 06-87-7137Slxfsdu [Mass/Vol]75 mg/wA13-655IzsaortdrOhiohealth Doctors Hospital Comment on above:ADA recommended reference rangeRandom Glucose Reference Range is dependent on time and content of last meal. Glucose of more than 200 mg/dL in a nonstressed, ambulatory subject supports the diagnosisof Diabetes Mellitus. HCG ( test) IA.rapid Ql (U)Ordered By: Oh Aparicio on 10-16-2023 HCG ( test) Ql (U)NegativeOhiohealth Doctors HospitalHCG,Urineon 14-72-5620Rvyc HCG ( test) Ql (U)NegativeNormalThe [facility] Hospital Physician GroupComment on above:Order Comment: Name Collection Type:: VoidedResult Comment: PERFORMED BY: [place] [id number] PATHOLOGIST MACHINE SHOP REPAIR TECHNICIAN TAZ DALY M.D.Performed By: #### UHCG, UA #### [place] [address] USAHematocrit Auto (Bld) [Volume fraction]Ordered By: Oh Aparicio on 09-73-0606Wnvfbtlafr (Bld) [Volume fraction]40.4 %34.0-46.4 [facility] HospitalHemoglobin [Mass/volume] in BloodOrdered By: Oh Aparicio on 25-24-0441Qdurcbegvv (Bld) [Mass/Vol]13.7 g/dL11.8-15.4 [facility] HospitalHepatic Panelon 79-10-0316Pqucepj [Mass/Vol]4.3 g/dLNormal3.5-5.7The [facility] Physician GroupComment on above:Order Comment: waiterPerformed By: #### BMP, LIPASE, SCAN CBC, HEPATIC #### [facility] [address] [place] [id number] USAAlbumin/Globulin [Mass ratio]1.9 {ratio}NormalThe [facility] Hospital Physician GroupComment on above:Order Comment: waiterPerformed By: #### BMP, LIPASE, SCAN CBC, HEPATIC #### [place] [address] USAALP [Catalytic activity/Vol]54 U/SGwtbbe64-629Tax [facility] Physician GroupComment on above:Order Comment: waiterPerformed By: #### BMP, LIPASE, SCAN CBC, HEPATIC #### [place] [address] USAALT [Catalytic activity/Vol]20 U/LNormal7-52The [facility] Physician GroupComment on above:Order Comment: waiterPerformed By: #### BMP, LIPASE, SCAN CBC, HEPATIC #### [place] [address] USAAST [Catalytic activity/Vol]17 U/DPewvhy95-65Abp [facility] Physician GroupComment on above:Order Comment: waiterPerformed By: #### BMP, LIPASE, SCAN CBC, HEPATIC #### [place] [address] USABilirubin [Mass/Vol]0.4 mg/dLNormal0.3-1.0The [facility] Physician GroupComment on above:Order Comment: waiterPerformed By: #### BMP, LIPASE, SCAN CBC, HEPATIC #### [place] [address] USABilirubin,Indirect0.3 mg/dLNormBaptist Health Doctors Hospital Physician GroupComment on above:Order Comment: waiterPerformed By: #### BMP, LIPASE, SCAN CBC, HEPATIC #### [place] [address] USABilirubin.indirect [Mass/Vol]0.10 mg/dLNormal0.03-0.18The [facility] Physician GroupComment on above:Order Comment: waiterPerformed By: #### BMP, LIPASE, SCAN CBC, HEPATIC #### [place] [address] USAGlobulin (S) [Mass/Vol]2.3 g/dLNormOhioHealth Riverside Methodist Hospitale [facility] Physician GroupComment on above:Order Comment: waiterPerformed By: #### BMP, LIPASE, SCAN CBC, HEPATIC #### [place] [address] USAProtein [Mass/Vol]6.6 g/dLNormal6.4-8.9The [facility] Physician GroupComment on above:Order Comment: waiterPerformed By: #### BMP, LIPASE, SCAN CBC, HEPATIC #### [facility] [address] [place] [address] USAKetones Auto test strip (U) [Mass/Vol]Ordered By: Oh Aparicio on 63-58-8855Zbwckaa (U) [Mass/Vol]NegativeNegativeOhiohealth Doctors HospitalLeukocytes [#/volume] corrected for nucleated erythrocytes in Blood by Automated counOrdered By: Oh Aparicio on 22-65-0865MKT corrected for nucl RBC Auto (Bld) [#/Vol]6.3 10*3/uL3.8-11.6 [facility] Doctors HospitalLipaseon 04-14-2178Yrkfhr [Catalytic activity/Vol]7.0 U/LLow11.0-82.0The [facility] Physician GroupComment on above: Order Comment: waiterResult Comment: PERFORMED BY: [place] [address] PATHOLOGIST MACHINE SHOP REPAIR TECHNICIAN TAZ DALY M.D.Performed By: #### BMP, LIPASE, SCAN CBC, HEPATIC #### [facility] [address] [place] [address] USALipase [Enzymatic activity/volume] in Serum or Plasma Ordered By: Oh Aparicio on 94-52-6121Vjvitv [Catalytic activity/Vol]7.0 U/L11.0-82.0Ohio[facility] Doctors HospitalLymphocytes Auto (Bld) [#/Vol] Ordered By: Oh Aparicio on 61-55-2939Hdxqlkowafc (Bld) [#/Vol]2.2 10*3/uL 1.00-4.8[facility] Doctors HospitalLymphocytes/100 WBC Auto (Bld)Ordered By: Oh Aparicio on 56-74-6620Werihxztzde/100 WBC (Bld)34.2 %.[facility] Doctors HospitalMCH Auto (RBC) [Entitic mass]Ordered By: Oh Aparicio on 52-56-1999EGP (RBC) [Entitic mass]31.0 pg24.7-34.3FSelect Medical Specialty Hospital - CantonMCHC Auto (RBC) [Mass/Vol]Ordered By: Oh Aparicio on 05-54-6617UVDA (RBC) [Mass/Vol]33.9 g/dL32.0-35.0[facility] Doctors HospitalMCV Auto (RBC) [Entitic vol]Ordered By: Oh Aparicio on 03-52-0923SOT (RBC) [Entitic vol]91.5 rV57-890PkfbqhdzrOhiohealth Doctors HospitalMonocyte distribution width [Entitic volume] in Blood by AutomatedOrdered By: Oh Aparicio on 52-56-9343Qhxxbisq distribution width Auto (Bld) [Entitic vol]17.06 % 0.00-20.00[facility] Doctors HospitalMonocytes Auto (Bld) [#/Vol]Ordered By: Oh Aparicio on 35-95-3536Qdgfixkjz (Bld) [#/Vol]0.4 10*3/uL0.0-0.8 [facility] HospitalMonocytes/100 WBC Auto (Bld)Ordered By: Oh Aparicio on 68-18-2169Ewhxcxnya/100 WBC (Bld)5.9 %.[facility] Doctors HospitalNeutrophils Auto (Bld) [#/Vol]Ordered By: Oh Aparicio on 62-16-1768Bxrddusgris (Bld) [#/Vol]3.6 10*3/uL1.8-7.7FSelect Medical Specialty Hospital - CantonNeutrophils/100 WBC Auto (Bld)Ordered By: Oh Aparicio on 10-16-2023 Neutrophils/100 WBC (Bld)57.1 %.[facility] Doctors HospitalNitrite Test strip Ql (U)Ordered By: Oh Apariico on 32-47-9344Qsbibzh Ql (U)Negative NegativeOhiohealth Doctors HospitalNo Panel InformationOrdered By: Oh Aparicio on 37-91-2362Cevxzwpkh GFR (CKD-EPI)> 60.0 mL/MinOhiohealth Doctors HospitalPharmacy Creatinine Clearance (Jonv234.48Ohio[facility] Doctors HospitalNucleated erythrocytes [Presence] in Blood by Automated countOrdered By: Oh Aparicio on 82-09-2266Kpkgyuotj RBC Auto Ql (Bld)0.2 /100{WBC}0-0.5FSelect Medical Specialty Hospital - CantonPlatelet adequacy [Presence] in Blood by Light microscopyOrdered By: Oh Aparicio on 33-13-4381Wwzzizlqo LM Ql (Bld)NormalNormalOhiohealth Doctors HospitalPlatelet mean volume Auto (Bld) [Entitic vol]Ordered By: Oh Aparicio on 41-23-4115Kodzfrkq mean volume (Bld) [Entitic vol]11.6 fL6.3-10.7FSelect Medical Specialty Hospital - Canton Platelet morphology finding [Identifier] in BloodOrdered By: Oh Aparicio on 94-75-3627Njmkmecm morphology finding Nom (Bld)N/AFSelect Medical Specialty Hospital - CantonPlatelets Auto (Bld) [#/Vol]Ordered By: Oh Aparicio on 10-16-2023 Platelets (Bld) [#/Vol]174 10*3/qJ391-313RygyhvsreOhiohealth Doctors Hospital Platelets Large [Presence] in Blood by Light microscopyOrdered By: Oh Aparicio on 43-85-3408Uomjugzqi Large LM Ql (Bld)SlightOhiohealth Doctors HospitalPotassium [Moles/volume] in Serum or PlasmaOrdered By: hO Aparicio on 64-63-8102Norejuqgx [Moles/Vol]4.1 mmol/L3.5-5.1FSelect Medical Specialty Hospital - CantonProtein Auto test strip (U) [Mass/Vol]Ordered By: Oh Aparicio on 55-95-8048Oxwpbgo (U) [Mass/Vol]NegativeNegativeOhiohealth Doctors HospitalProtein [Mass/volume] in Serum or PlasmaOrdered By: Oh Aparicio on 73-29-4453Apeyjmp [Mass/Vol]6.6 g/dL6.4-8.9Ohio[facility] Doctors HospitalRBC Auto (Bld) [#/Vol]Ordered By: Oh Aparicio on 94-48-8206KAP (Bld) [#/Vol] 4.42 10*6/uL3.60-5.00Ohio[facility] Doctors HospitalRBC morphologyOrdered By: Oh Aparicio on 95-36-4232XCI morphology finding Nom (Bld)NormalNormal Wayne Hospitalcan and CBCon 42-23-4110Kynxmqqni (Bld) [#/Vol]0.0 10*3/uLNormal0.0-0.2The [facility] Physician GroupComment on above: Order Comment: waiterPerformed By: #### BMP, LIPASE, SCAN CBC, HEPATIC #### [place] [address] USABasophils/100 WBC (Bld)0.3 %Normal.The [facility] Physician GroupComment on above:Order Comment: waiterPerformed By: #### BMP, LIPASE, SCAN CBC, HEPATIC #### [place] [address] USAEosinophils (Bld) [#/Vol]0.2 10*3/uLNormal0.0-0.45The [facility] Physician GroupComment on above:Order Comment: waiterPerformed By: #### BMP, LIPASE, SCAN CBC, HEPATIC #### [place] [address] USAEosinophils/100 WBC (Bld)2.5 %Normal.The [facility] Physician GroupComment on above:Order Comment: waiterPerformed By: #### BMP, LIPASE, SCAN CBC, HEPATIC #### [place] [address] USAErythrocyte distribution width (RBC) [Ratio]13.7 %Normal 11.9-15.3The [facility] Physician GroupComment on above:Order Comment: cotton sampler Performed By: #### BMP, LIPASE, SCAN CBC, HEPATIC #### [place] [address] USAHematocrit (Bld) [Volume fraction]40.4 %Cywlhc92.0-46.4The [facility] Physician GroupComment on above:Order Comment: waiterPerformed By: #### BMP, LIPASE, SCAN CBC, HEPATIC #### [place] [address] USAHemoglobin (Bld) [Mass/Vol]13.7 g/uRTcqwtd42.8-15.4The [facility] Physician GroupComment on above:Order Comment: waiterPerformed By: #### BMP, LIPASE, SCAN CBC, HEPATIC #### [place] [address] USALarge PlateletsSlightNormalThe [facility] Physician Group Comment on above:Order Comment: waiterResult Comment: PERFORMED BY: [place] [address] PATHOLOGIST MACHINE SHOP REPAIR TECHNICIAN TAZ DALY M.D.Performed By: #### BMP, LIPASE, SCAN CBC, HEPATIC #### [place] [address] USALymphocytes (Bld) [#/Vol]2.2 10*3/uLNormal1.00-4.8The [facility] Physician GroupComment on above:Order Comment: waiterPerformed By: #### BMP, LIPASE, SCAN CBC, HEPATIC #### [place] [address] USALymphocytes/100 WBC (Bld)34.2 %Normal.The [facility] Physician GroupComment on above:Order Comment: waiterPerformed By: #### BMP, LIPASE, SCAN CBC, HEPATIC #### [address]H (RBC) [Entitic mass]31.0 kiVbbeiz21.7-34.3The [facility] Physician GroupComment on above:Order Comment: waiterPerformed By: #### BMP, LIPASE, SCAN CBC, HEPATIC #### [address]V (RBC) [Entitic vol]91.5 hAHtzfsc02-763Yix [facility] Physician GroupComment on above:Order Comment: waiterPerformed By: #### BMP, LIPASE, SCAN CBC, HEPATIC #### [place] [address] USAMean Corpuscular HGB Conc33.9 g/kBQplqkz62.0-35.0The [facility] Physician GroupComment on above:Order Comment: waiterPerformed By: #### BMP, LIPASE, SCAN CBC, HEPATIC #### [place] [address] USAMonocytes (Bld) [#/Vol]0.4 10*3/uLNormal0.0-0.8The [facility] Physician GroupComment on above:Order Comment: waiterPerformed By: #### BMP, LIPASE, SCAN CBC, HEPATIC #### [facility] [address] [place] [address] USAMonocytes/100 WBC (Bld)17.06 %Normal0.00-20.00The [facility] Physician GroupComment on above:Order Comment: waiterPerformed By: #### BMP, LIPASE, SCAN CBC, HEPATIC #### [facility] [address] [place] [address] USAMonocytes/100 WBC (Bld)5.9 %Normal.The [facility] Physician GroupComment on above:Order Comment: waiterPerformed By: #### BMP, LIPASE, SCAN CBC, HEPATIC #### [place] [address] USANeutrophils (Bld) [#/Vol]3.6 10*3/uLNormal1.8-7.7The [facility] Physician GroupComment on above:Order Comment: waiterPerformed By: #### BMP, LIPASE, SCAN CBC, HEPATIC #### [facility] [address] [place] [address] USANeutrophils/100 WBC (Bld)57.1 %Normal.The [facility] Physician GroupComment on above:Order Comment: waiterPerformed By: #### BMP, LIPASE, SCAN CBC, HEPATIC #### [facility] [address] [place] [address] USANRBC%0.2 /100{WBC}Normal0-0.5The [facility]ician Group Comment on above:Order Comment: waiterPerformed By: #### BMP, LIPASE, SCAN CBC, HEPATIC #### [facility] [address] [place] [address] USAPlatelet EstimateNormalNormalNormalThe [facility] Physician GroupComment on above:Order Comment: waiterPerformed By: #### BMP, LIPASE, SCAN CBC, HEPATIC #### [address] [address] USAPlatelet mean volume (Bld) [Entitic vol]11.6 fLHigh 6.3-10.7The [facility] Physician GroupComment on above:Order Comment: cotton sampler Performed By: #### BMP, LIPASE, SCAN CBC, HEPATIC #### [facility] [address] [place] [address] USAPlatelets (Bld) [#/Vol]174 10*3/cMTuzeci910-253Yyk [facility] Physician GroupComment on above:Order Comment: waiterPerformed By: #### BMP, LIPASE, SCAN CBC, HEPATIC #### [facility] [address] [place] [address] USARBC (Bld) [#/Vol]4.42 10*6/uLNormal3.60-5.00The [facility] Physician GroupComment on above:Order Comment: waiterPerformed By: #### BMP, LIPASE, SCAN CBC, HEPATIC #### [facility] [address] [place] [address] USARBC morphology finding Nom (Bld)NormalNormalNormalThe [facility] Physician GroupComment on above:Order Comment: waiterPerformed By: #### BMP, LIPASE, SCAN CBC, HEPATIC #### [facility] [address] [place] [address] USAWBC (Bld) [#/Vol]6.3 10*3/uLNormal3.8-11.6The [facility] Physician GroupComment on above:Order Comment: waiterPerformed By: #### BMP, LIPASE, SCAN CBC, HEPATIC #### [facility] [address] [place] [address] USASerum or plasma albumin/globulin mass ratioOrdered By: Oh Aparicio on 79-33-5981Tycztos/Globulin [Mass ratio]1.9 {ratio}Wayne Hospitalerum or plasma anion gap determinationOrdered By: Oh Aparicio on 01-12-8996Gmlma gap [Moles/Vol]12.0 mmol/L6.0-15.0Wayne Hospitalerum or plasma non-glucuronidated bilirubin measurement (mass/volume)Ordered By: Oh Aparicio on 77-59-4063Cbuobuwni.indirect [Mass/Vol]0.3 mg/dLWayne Hospitalodium [Moles/volume] in Serum or PlasmaOrdered By: Oh Aparicio on 33-49-9069Ejzdoy [Moles/Vol]141 mmol/S339-071PliblirodWayne Hospitalpecific gravity Auto test strip (U) [Rel density]Ordered By: Oh Aparicio on 55-22-2034Wvoafcyz gravity (U) [Rel density]1.0061.001-1.030Ohio[facility] Doctors HospitalUS gall bladderon 02-93-2658MR gall bladderPIKE COMM[place] [address] Ultrasound Report Signed Patient: Torrey Antony MR#: [id number] : 1990 Acct:[id number] Age/Sex: 32 / F ADM Date: 10/16/23 Loc: ER Room: Type: [facility] ER Attending Dr: Ordering Provider: [...] Anastasia Nunez M.D.10/16/2023 1:27 PM Dictation Location: [place] [address] Tech: Katharina Burger Transcribed By: DIANA 10/16/23 1327 Dictated By: Anastasia Nunez MD 10/16/23 1325 Signed By: 10/16/23 1327[facility] Physician GroupUrea nitrogen [Mass/volume] in Serum or PlasmaOrdered By: Oh Aparicio on 66-71-9346Wais nitrogen [Mass/Vol]8 mg/dL7-25Ohiohealth Doctors HospitalUrinalysison 10-16-2023 Appearance (U)ClearNormalClearThe [facility] Physician GroupComment on above: Order Comment: Name Collection Type:: VoidedPerformed By: #### UHCG, UA #### [facility] [address] [place] [address] USABilirubin,UrineNegativeNormalNegativeThe [facility] Physician GroupComment on above:Order Comment: Name Collection Type:: Voided Performed By: #### UHCG, UA #### [address] [address] USAColor (U)YellowNormalYellowHca Florida West Hospital [facility]ician Group Comment on above:Order Comment: Name Collection Type:: VoidedPerformed By: #### UHCG, UA #### [address] [address] USAGlucose Ql (U)NormalNormalNormalThe [facility] Physician GroupComment on above:Order Comment: Name Collection Type:: VoidedPerformed By: #### UHCG, UA #### [address] [address] USAKetones Ql (U)NegativeNormalNegativeHca Florida [facility] Hospital Physician GroupComment on above:Order Comment: Name Collection Type:: Voided Performed By: #### UHCG, UA #### [facility] [address] [place] [address] USALeukocyte esterase Test strip Ql (U)NegativeNormalNegative [facility] Physician GroupComment on above:Order Comment: Name Collection Type:: VoidedPerformed By: #### UHCG, UA #### [facility] [address] [place] [address] USANitrite,UrineNegativeNormalNegativeThe [facility] Physician GroupComment on above:Order Comment: Name Collection Type:: VoidedPerformed By: #### UHCG, UA #### [address] [address] USAOccult Blood,UrineNegativeNormalNegativeThe [facility] Physician GroupComment on above:Order Comment: Name Collection Type:: Voided Performed By: #### UHCG, UA #### [facility] [address] [place] [address] USApH (U)7.0 [pH]Normal5.0-9.0The [facility] Comment on above:Order Comment: Name Collection Type:: VoidedPerformed By: #### UHCG, UA #### [facility] [address] [id number] USAProtein,UrineNegativeNormalNegativeThe [facility] Physician GroupComment on above:Order Comment: Name Collection Type:: VoidedPerformed By: #### UHCG, UA #### [place] [address] USASpecificy [place],Urine1.504Ufnuyh8.001-1.030The [facility] Physician GroupComment on above:Order Comment: Name Collection Type:: Voided Performed By: #### UHCG, UA #### [place] [address] USAUrobilinogen,UrineNormalNormalNormalThe [facility] Physician GroupComment on above:Order Comment: Name Collection Type:: Voided Performed By: #### UHCG, UA #### [place] [address] USAUrine clarity by refractometry automatedOrdered By: Oh Aparicio on 26-66-3113Jkgifdc Refractometry automated (U)ClearClear [facility] Doctors HospitalUrine glucose measurement by automated test strip (mass/volume)Ordered By: Oh Aparicio on 78-57-4698Xjltlel Auto test strip (U) [Mass/Vol]Normal mg/dLNormalOhiohealth Doctors HospitalUrine hemoglobin detection by automated test stripOrdered By: Oh Aparicio on 44-24-7933Lukanmryhr Auto test strip Ql (U)NegativeNegKettering Health TroyUrine leukocyte esterase detection by automated test stripOrdered By: Oh Aparicio on 88-24-3795Jteaceicf esterase Auto test strip Ql (U) NegativeNegKettering Health TroyUrobilinogen Auto test strip (U) [Mass/Vol]Ordered By: Oh Aparicio on 78-36-3202Ufatvnvkmstb (U) [Mass/Vol]Normal mg/dLNoRiverside Methodist HospitalWBC Auto (Bld) [#/Vol]Ordered By: Oh Aparicio on 88-72-1738TZU (Bld) [#/Vol]6.3 10*3/uL 3.8-11.6FSelect Medical Specialty Hospital - CantonpH Auto test strip (U)Ordered By: Oh Aparicio on 56-33-6677iC (U)7.0 [pH]5.0-9.0Ohio[facility] Doctors HospitalOffice Visiton 21-53-2547Jzncxc-up [id number] Torrey Antony 1990 F Date Provider Department Center 11/30/2022 [facility] MPORTHO Family History Problem Relation Age of Onset No Known Problems Mother Hypertension Father Hyperlipidemia Father Family Status - Relation Status Age at Mother Alive Father Alive Level of Service:92433 ME OFFICE/OUTPATIENT ESTABLISHED LOW MDM 20-29 MIN Reason for Visit and Comments: Pain [136]NormalUnOhioHealth Marion General HospitalXR CHEST 2 Von 93-87-4151AB CHEST 2 VXR CHEST 2 V COMPARISON: October 2022 chest x-ray CLINICAL HISTORY: Cough TECHNIQUE: 2 views FINDINGS: There is a normal cardiac and mediastinal contour. The pulmonary vascular pattern is normal. The lungs are clear and the pleural margins are sharp. There are no significant skeletal abnormalities. IMPRESSION: NO ACUTE RADIOGRAPHIC FINDINGS. Electronically authenticated by: HAN ARNOLD Date: 2022-11-09 17:20[facility] Von 68-57-2679UD CHEST 1 VEXAMINATION: XR CHEST 1 V HISTORY: Cough and congestion COMPARISON: X-rays 02/15/2022 TECHNIQUE: Portable chest FINDINGS: The lung parenchyma is free of consolidation or infiltrate. No pneumothorax or pleural effusion. The cardiac, mediastinal and hilar contours are normal. The visualized osseous structures exhibit no gross abnormality. IMPRESSION: No acute cardiopulmonary abnormality. Electronically authenticated by: MAURO NUNEZ Date: 2022-11-02 20:46NoClinton Memorial HospitalTHYROID ANTIBODIESon 20-95-6712Gtambowptjwnl Antibody<1.0Normal 0.0-0.9The Mark HospitalComment on above:Result Comment: Thyroglobulin Antibody measured by [employer] MethodologyPerformed By: #### THYRABS #### [facility] [address] [place] [address] Dr. Rigo SandsThyroid Peroxidase (TPO) Ab<9Adbmpt2-34ZxbSelect Medical Specialty Hospital - [facility] South Comment on above:Performed By: #### THYRABS #### [facility] [address] [place] [address] Dr. Rigo Arceo THYROIDon 74-38-4933OE THYROIDEXAMINATION: US THYROID HISTORY: Thyroid function tests abnormal COMPARISON: No [...] Electronically authenticated by: MAURO POSADAS Date: 2022-07-10 06:33NormalThe [facility] HospitalFREE T3on 55-97-1002SROV T32.99 pg/mlLNormal2.18-3.98The [facility] HospitalComment on above:Performed By: #### TSH, FT3 #### [facility] [address] [place] [address] Dr. Rigo Martinez T4on 61-21-2943Lnrn T4 [Mass/Vol]0.64 ng/dLCritically low 0.76-1.46The [facility] HospitalComment on above:Performed By: #### FT4 #### [facility] [address] [place] [address] Dr. Rigo Harmon 06-69-9727ZSH7.764 uIU/mLNormal0.358-3.740The [facility] HospitalComment on above:Performed By: #### TSH, FT3 #### [facility] [address] [place] [address] Dr. Rigo SandsCovid-19 PCR (CVDTB)on 36-54-7602EUBY-CoV-2 (COVID-19) RNA OK+probe Ql (Unsp spec)Not detectedNormalNOT DETECTEDThe [facility] Comment on above:Result Comment: When diagnostic testing is negative, the [...] for this test is supported by the [place] of Health and Human Service's declaration that circumstances exist to justify the emergency use of in vitro diagnostics for the detection and/or diagnosis of the virus that causes COVID-19. This EUA will remain in effect for the duration of the COVID-19 declaration justifying emergency of IVDs, unless it is terminated or revoked by the FDA (after which the test may no longer be used).Performed By: #### CVDTBH #### [facility] [address] [place] [address] Dr. Rigo Tracey AUTO DIFFon 88-50-8833LXIZ #0.0 103/ulNormal0.0-0.1The [facility] HospitalComment on above:Performed By: #### CBC ####[facility] [address] [address]Dr.Rigo SandsBasophils/100 WBC (Bld)0.3 %Normal0.2-2.0The [facility] County HospitalComment on above:Performed By: #### CBC ####[facility] [address] [address]Dr.Hilarylan ChangEO #0.1 103/ulNormal0.0-0.7The [facility] HospitalComment on above:Performed By: #### CBC ####[facility] [address] [address]Dr.Hilarylan ChangEosinophils/100 WBC (Bld)0.8 %Critically low0.9-7.0The [facility] HospitalComment on above:Performed By: #### CBC ####[facility] Eukrlmo[address] [place], [place] [address]Dr. Hilarylan ChangErythrocyte distribution width (RBC) [Ratio]13.2 %Yxybzr67.0-15.0The [facility] HospitalComment on above:Performed By: #### CBC ####[facility] [address]xhl[address] [place], [place] [address]Dr.Yilan ChangHematocrit (Bld) [Volume fraction]42.0 %Refiss37.0-48.0The [facility] HospitalComment on above:Performed By: #### CBC ####[facility] [address] [place], [place] [address]Dr.Rigo ChangHemoglobin (Bld) [Mass/Vol]13.8 g/dL Xwdwfh80.0-16.0The [facility] HospitalComment on above:Performed By: #### CBC ####[facility] Awbibbnvss[address] [place], [place] [address]Dr. Yilan ChangIG #0.04 10e3/ulCritically high0.00-0.03The [facility] HospitalComment on above:Performed By: #### CBC ####[facility] Ehvoiew[address] [place], [place] [address]Dr.Yilan ChangIG %0.5 %Normal0.0-0.5The [facility] HospitalComment on above:Performed By: #### CBC ####[facility] K[address] [place], [place] [address]Dr.Yilan ChangLYMPH #1.9 103/ulNormal1.2-3.8The [facility] HospitalComment on above:Performed By: #### CBC ####[facility] Qcludwkrff[address] [place], [place] [address]Dr. Yilan ChangLymphocytes/100 WBC (Bld)25.5 %Chtlxn86.5-60.0The [facility] Comment on above:Performed By: #### CBC ####[facility] [address] [place] [address]Dr.Rigo SandsMANUAL DIFF REQNONormalThe [facility] HospitalComment on above:Performed By: #### CBC ####[facility] [address] [address]Dr.Hilarygilma SandsH (RBC) [Entitic mass]30.4 kfTmmhxq51.7-34.0The [facility] HospitalComment on above: Performed By: #### CBC ####[facility] [address] [address]Dr.Rigo SandsHC (RBC) [Mass/Vol]32.9 g/dLNormal 29.9-35.2The [facility] HospitalComment on above:Performed By: #### CBC ####[facility] [address]fsar[address] [place], [place] [address]Dr. Rigo SandsV (RBC) [Entitic vol]92.5 jUUflfzw25.0-99.0[facility] Comment on above:Performed By: #### CBC ####[facility] [address]cgfv[address]sws[address] [place], [place] [address]Dr.Rigo SandsMONO #0.5 103/ulNormal0.3-0.8 The [facility] HospitalComment on above:Performed By: #### CBC ####[facility] [address]encshuess[address] [place], [place] [address]Dr.Rigo Sands Monocytes/100 WBC (Bld)6.0 %Normal1.7-12.0The [facility] HospitalComment on above: Performed By: #### CBC ####[facility] Chdoydjgol[address] [place], [place] [address]Dr.Rigo SandsNEUT #5.0 103/ulNormal1.4-6.5The [facility] HospitalComment on above:Performed By: #### CBC ####[facility] Fbztnkjwbo[address] [place], [place] [address]Dr.Rigo SandsNeutrophils/100 WBC (Bld)66.9 %Vwbcft78.0-75.0[facility] SouthComment on above:Performed By: #### CBC ####[facility] Wyfbowiouy[address] [place], [place] [address]Dr.Rigo SandsPlatelet mean volume (Bld) [Entitic vol]12.7 fLNormal9.5-13.5 The [facility] HospitalComment on above:Performed By: #### CBC ####[facility] Efqpqnxvnd[address] [place], [place] [address]Dr.Rigo SandsPLT196 103/skCsgqxa198-176Ymt [facility] HospitalComment on above:Performed By: #### CBC ####[facility] Dwbtbyjqff[address] [place], [place] [address]Dr. Rigo SnadsRBC4.54 106/ulNormal4.20-5.40The [facility] HospitalComment on above: Performed By: #### CBC ####[facility] Wftaiesklu[address] [place], [place] [address]Dr.Rigo SandsWBC7.5 103/ulNormal4.0-11.0The [facility] HospitalComment on above:Performed By: #### CBC ####[facility] Uesyloszxy[address] [place], [place] [address]Dr.Rigo SandsIRONon 48-48-3271Pdjm [Mass/Vol]65.0 ug/qILswnzm28.0-170.0The [facility] HospitalComment on above:Performed By: #### VITAD, IRON, VITB12 ####[facility] [address]lgtorrffp[address] [place], [place] [address]Dr. Rigo SandsVITAMIN B12on 53-12-0719Chmzyetxd (Vitamin B12) [Mass/Vol]369.0 pg/dCRvxvac328.0-986.0The [facility] HospitalComment on above:Performed By: #### VITAD, IRON, VITB12 ####[facility] [address]iuwpb[address] [place], [place] [address]Dr. Hilarygilma SandsVITAMIN D 25 OHon 22-07-0651OTE D 25-OH59.2 ng/mLNormalThe [facility] HospitalComment on above:Performed By: #### VITAD, IRON, VITB12 ####[facility] [address] [address]Dr. Rigo Cerna [facility] Campus Medical CenterComment on above:Result Comment: <20 ng/mL Vit D deficient 20 - <30 ng/mL Vit D insufficient 30 - 100 ng/mL Vit D sufficient >100 ng/mL Potential ToxicityPerformed By: #### VITAD, IRON, VITB12 ####[facility] [address] [address]Dr. Rigo Tovar AUTO DIFFon 78-78-9125TOHD #0.0 103/ulNormal0.0-0.1The [facility] on above:Performed By: #### CBC #### [facility] [address] [place] [address] Dr. Rigo SandsBasophils/100 WBC (Bld)0.2 %Normal0.2-2.0[facility] Comment on above:Performed By: #### CBC #### [facility] [address] [address] [address] Rigo Helton #0.0 103/ulNormal0.0-0.7The [facility] HospitalComment on above: Performed By: #### CBC #### [facility] [address] [address] [address] Rigo Dennyosinophils/100 WBC (Bld)0.1 %Critically low0.9-7.0The [facility] HospitalComment on above:Performed By: #### CBC #### [facility] [address] [address] [address] Rigo Dennyrythrocyte distribution width (RBC) [Ratio]13.5 %Vqfogy35.0-15.0 The [facility] HospitalComment on above:Performed By: #### CBC #### [facility] [address] [address] [address] Rigo SandsHematocrit (Bld) [Volume fraction]40.0 %Gdhkwm62.0-48.0The [facility] HospitalComment on above:Performed By: #### CBC #### [facility] [address] [address] [address] Rigo SandsHemoglobin (Bld) [Mass/Vol]13.4 g/oPOytsbo19.0-16.0The [facility] HospitalComment on above:Performed By: #### CBC #### [facility] [address] [address] [address] Rigo Nielson #0.04 10e3/ulCritically high0.00-0.03The [facility] Comment on above:Performed By: #### CBC #### [facility] [address] [address] [address] Rigo Nielson %0.4 %Normal0.0-0.5The [facility] HospitalComment on above: Performed By: #### CBC #### [facility] [address] [place] [address] Dr. Rigo Avina #1.6 103/ulNormal1.2-3.8The [facility] HospitalComment on above:Performed By: #### CBC #### [facility] [address] [address] [address] Rigo Shethhocytes/100 WBC (Bld)17.2 %Critically low20.5-60.0The [facility] HospitalComment on above:Performed By: #### CBC #### [facility] [address] [address] [address] Rigo MotaUAL DIFF REQNONormalThe [facility] HospitalComment on above: Performed By: #### CBC #### [facility] [address] [address] [address] Rigo Talamantes (RBC) [Entitic mass]30.7 uuPyxftf40.7-34.0The [facility] HospitalComment on above:Performed By: #### CBC #### [facility] [address] [address] [address] Rigo James (RBC) [Mass/Vol]33.5 g/eWMyulif68.9-35.2The [facility] HospitalComment on above:Performed By: #### CBC #### [facility] [address] [address] [address] Rigo JamesV (RBC) [Entitic vol]91.5 sFOwayqu81.0-99.0The [facility] HospitalComment on above:Performed By: #### CBC #### [facility] [address] [place] [address] Dr. Rigo Pedraza #0.4 103/ulNormal0.3-0.8The [facility] HospitalComment on above:Performed By: #### CBC #### [facility] [address] [place] [address] Dr. Rigo Stallingsocytes/100 WBC (Bld)4.0 %Normal1.7-12.0[facility] Comment on above:Performed By: #### CBC #### [facility] [address] [place] [address] Dr. Rigo Brandt #7.4 103/ulCritically high1.4-6.5The [facility] Comment on above:Performed By: #### CBC #### [facility] [address] [place] [address] Dr. Rigo Corralutrophils/100 WBC (Bld)78.1 %Critically high43.0-75.0The [facility] HospitalComment on above:Performed By: #### CBC #### [facility] [address] [place] [address] Dr. Rigo Lamlet mean volume (Bld) [Entitic vol]12.3 fLNormal9.5-13.5The [facility] HospitalComment on above:Performed By: #### CBC #### [facility] [address] [place] [address] Dr. Rigo SandsPLT199 103/ptAnrhxn118-183Njy [facility] HospitalComment on above: Performed By: #### CBC #### [facility] [address] [place] [address] Dr. Rigo SandsRBC4.37 106/ulNormal4.20-5.40[facility] Centerment on above:Performed By: #### CBC #### [facility] [address] [address] [address] Rigo SandsWBC9.5 103/ulNormal4.0-11.0[facility] SouthCommunson healthcare cadillac hospital on above: Performed By: #### CBC #### [facility] [address] [address] [address] Sierra ChangEGarrick URINE PROFILEon 63-95-9503Uxhjdzudf Ql (U)NegativeNormal NEGATIVESelect Medical Specialty Hospital - Columbus SouthComment on above:Performed By: #### ERUR ####[facility] [address]xmaj[address] [place], [place] [address]Dr. Rigo ChangClarity (U)CLEARNormalCLEARSelect Medical Specialty Hospital - Columbus SouthComment on above: Performed By: #### ERUR ####[facility] [address]vrpgnbuq[address] [place], [place] [address]Dr. Rigo ChangColor (U)LT. YELLOWNormalYELLOWSelect Medical Specialty Hospital - Columbus SouthComment on above:Performed By: #### ERUR ####[facility] [address]egyc[address] [place], [place] [address]Dr. Rigo ColeDA micrscopic examination will be performed if indicated.NormalThe [facility] HospitalComment on above:Performed By: #### ERUR ####[facility] [address]ggi[address] [place], [place] [address]Dr. Rigo ChangGlucose Ql (U) NegativeNormalNEGATIVESelect Medical Specialty Hospital - Columbus SouthComment on above:Performed By: #### ERUR ####[facility] Xtgychsyzn[address] [place], [place] [address]Dr. Hilarylan ChangHemoglobin Ql (U)NegativeNormalNEGATIVESelect Medical Specialty [facility] Comment on above:Performed By: #### ERUR ####[facility] [address]yxocpeejm[address] [place], [place] [address]Dr. Hilarylan ChangKetones Ql (U)15 mg/dl AbnormalNEGATIVESelect Medical Specialty Hospital - Columbus SouthComment on above:Performed By: #### ERUR ####[facility] [address] [address]Dr. Rigo ChangLEUKOCYTESNegativeNormalNEGATIVEThe Elkins HospitalComment on above:Performed By: #### ERUR ####[facility] [address]xotlazi[address] [place], [place] [address]Dr. Rigo SandsNitrite Ql (U)NegativeNormalNEGATIVEThe [facility]kins HospitalComment on above:Performed By: #### ERUR ####[facility] [address] [address]Dr. Rigo ChangpH (U)6.0 [pH] Normal5-9The [facility] HospitalComment on above:Performed By: #### ERUR ####[facility] [address] [place], [place] [address]Dr. Rigo ChangSPEC GRAVITY<=1.692Rcqbgxow9.005-<=1.025The [facility] HospitalComment on above:Performed By: #### ERUR ####[facility] [address]ga[address] [place], [place] [address]Dr. Hilarygilma ChangUA PROTEINNegativeNormalNEGATIVE/ TRACE The [facility]kins HospitalComment on above:Performed By: #### ERUR ####[facility] [address]swxcway[address] [place], [place] [address]Dr. Rigo SandsUR MICRO INDNOT INDICATEDNormalThe [facility] HospitalComment on above:Performed By: #### ERUR ####[facility] [address] [place], [place] [address]Dr. Hilarygilma WichoUrobilinogen Qn (U)0.2 {Keegan'U}/dLNormal0.2 - 1.0The [facility] HospitalComment on above:Performed By: #### ERUR ####[facility] [address]ugkt[address] [place], [place] [address]Dr. Rigo SandsLIPASEon 34-81-6208Wbdiai [Catalytic activity/Vol]50.0 U/LCritically low73.0-393.0The [facility] HospitalComment on above:Performed By: #### CMP, LIPA #### [facility] [address] [address] [address] Rigo SandsPROF 14(COMP METB)on 72-90-1701Mnncwia [Mass/Vol]3.8 g/dLNormal 3.4-5.0The [facility] HospitalComment on above:Performed By: #### CMP, LIPA #### [facility] [address] [address] [address] Rigo SandsAlbumin/Globulin [Mass ratio]1.2 {ratio}NormalThe [facility] HospitalComment on above:Performed By: #### CMP, LIPA #### [facility] [address] [address] [address] Rigo VirkP [Catalytic activity/Vol]60 U/JQtkjhv01-963Iqi [facility] HospitalComment on above:Performed By: #### CMP, LIPA #### [facility] [address] [address] [address] Rigo VirkT [Catalytic activity/Vol]36 U/PFfcpyc96-27Roq [facility] HospitalComment on above:Performed By: #### CMP, LIPA #### [facility] [address] [address] [address] Rigo Lee gap [Moles/Vol]12.0 mmol/LNormalThe [facility] Comment on above:Performed By: #### CMP, LIPA #### [facility] [address] [address] [address] Rigo SandsAST [Catalytic activity/Vol]16 U/GIaryua31-11Ubk [facility] Hospitalment on above:Performed By: #### CMP, LIPA #### [facility] [address] [address] [address] Rigo SandsBilirubin [Mass/Vol]0.3 mg/dLNormal0.2-1.0The [facility] Comment on above:Performed By: #### CMP, LIPA #### [facility] [address] [address] [address] Rigo SandsCalcium [Mass/Vol]8.8 mg/dLNormal8.5-10.1The [facility] Comment on above:Performed By: #### CMP, LIPA #### [facility] [address] [address] [address] Rigo SandsChloride [Moles/Vol]104 mmol/HObhces32-310Awh [facility] Comment on above:Performed By: #### CMP, LIPA #### [facility] [address] [address] [address] Rigo SandsCO2 [Moles/Vol]27.6 mmol/LQhtwps18.0-32.0The [facility] Comment on above:Performed By: #### CMP, LIPA #### [facility] [address] [address] [address] Rigo SandsCreatinine [Mass/Vol]0.78 mg/dLNormal0.55-1.02[facility] SouthComment on above:Performed By: #### CMP, LIPA #### [facility] [address] [place] [address] Dr. Rigo DennyGFR-AF ETHIOPIAN>60Normal>=60The [facility] HospitalComment on above:Performed By: #### CMP, LIPA #### [facility] [address] [place] [address] Dr. Rigo Soto-NON AF ETHIOPIAN>60Normal>=60The [facility] HospitalComment on above:Performed By: #### CMP, LIPA #### [facility] [address] [address] [address] Rigo SandsGlobulin (S) [Mass/Vol]3.2 g/dLNormalThe [facility] HospitalComment on above:Performed By: #### CMP, LIPA #### [facility] [address] [place] [address] Dr. Rigo SandsGlucose [Mass/Vol]83 mg/mMIpdnqv72-256Ayi [facility] Comment on above:Performed By: #### CMP, LIPA #### [facility] [address] [place] [address] Dr. Rgio SandsPotassium [Moles/Vol]3.6 mmol/LNormal3.5-5.1[facility] Comment on above:Performed By: #### CMP, LIPA #### [facility] [address] [address] [address] Rigo SandsProtein [Mass/Vol]7.0 g/dLNormal6.4-8.2[facility] Comment on above:Performed By: #### CMP, LIPA #### [facility] [address] [address] [address] Rigo SandsSodium [Moles/Vol]140 mmol/REvjzrb512-102Ttx [facility] Comment on above:Performed By: #### CMP, LIPA #### [facility] [address] [place] [address] Dr. Rigo SandsUrea nitrogen [Mass/Vol]16.0 mg/dLNormal7.0-18.0[facility] SouthComment on above:Performed By: #### CMP, LIPA #### [facility] Laboratory [address] [place] [address] Dr. Rigo Adrian nitrogen/Creatinine [Mass ratio]20.5 mg/mgNoClinton Memorial HospitalComment on above:Performed By: #### CMP, LIPA #### [facility] [address] [place] [address] Dr. Rigo Roach 27-43-2035FSI Coag (PPP) [Relative time]1.03 {INR} NormalSelect Medical Specialty Hospital - Columbus SouthComment on above:Performed By: #### PTT, PT ####[facility] [address] [place], [place] [address]Dr. Rigo Johnson GUIDELINESSEE BELOWTwin City HospitalComment on above: Result Comment: DESIRED INR: 2.0 - 3.0 CONDITIONS NOT LISTED BELOW 2.5 - 3.5 FOR PROSTHETIC HEART VALVE REPLACEMENT 2.5 - 3.5 RECURRENT THROMBOSISPerformed By: #### PTT, PT ####[facility] [address] [place] [address]Dr. Rigo SandsPT Coag (PPP) [Time]11.1 sNormal9.0-11.6The Mark HospitalComment on above:Performed By: #### PTT, PT ####[facility] [address] [place], [place] [address]Fz. Rigo Mendoza 23-59-6550cUAD Coag (Bld) [Time]26.8 zWfgqfw88.3-36.2The [facility] Comment on above:Performed By: #### PTT, PT ####[facility] [address] [place], [place] [address]Qe. Rigo SandsXR ABD FLAT UP_PA Jeannette 70-90-8774WS ABD FLAT UP_PA CHEXAMINATION: XR ABD FLAT UP_PA CH HISTORY: Hematemesis COMPARISON: No relevant comparison available. FINDINGS: LUNGS: No infiltrate, pneumothorax, or pleural effusion. MEDIASTINUM: No abnormal widening. BOWEL GAS PATTERN: Non-obstructed. FREE AIR: None. CALCIFICATIONS: None significant. BONES: No fracture or visible bone lesion. OTHER: Negative. IMPRESSION: Clear lungs Nonobstructive bowel gas pattern Electronically authenticated by: MAURO POSADAS Date: 2022-02-15 14:44Twin City HospitalXR hand LT min 3V*on 42-97-7059WJ hand LT min 3V*[facility] [place] Workstir Other XR hand LT min 3V*[facility] Workstir Other XR hand LT min 3V*[address] [facility] Workstir Other XR hand LT min 3V*[place] [id number] Medical Center Ballard Workstir Other XR hand LT min 3V*[facility] Workstir Other xr hand LT min 3V*[facility] NoiseFree Other XR hand LT min 3V*Patient: Torrey Antony MR#: [id number] NoiseFree Other XR hand LT min 3V*[id number] NoiseFree Other XR hand LT min 3V*: 1990 Acct:[id number] NoiseFree Other XR hand LT min 3V*Age/Sex: 30 / F ADM Date: 10/18/21 [place] NoiseFree Other XR hand LT min 3V*Loc: XDUCLY Room: Type: [facility] NoiseFree Other XR hand LT min 3V*Attending Dr: Tiki GODDARD [place] NoiseFree Other XR hand LT min 3V*Ordering Provider: BROOKLYNN EdgarBarnes-Jewish [facility] NoiseFree Other XR hand LT min 3V*Date of Service: 10/18/21[place] NoiseFree Other XR hand LT min 3V* XR/XR hand LT min 3V*: Left hand painBagwell NoiseFree Other XR hand LT min 3V*Copies to: NITZA Edgar [place] NoiseFree Other XR hand LT min 3V*4 viewsleft hand plain filmBagwell NoiseFree Other XR hand LT min 3V*COMPARISON:[facility] NoiseFree Other XR hand LT min 3V*HISTORY:Left hand injury.[place] Other XR hand LT min 3V*No fracture, dislocation or focal soft tissue abnormality seen.[place] Other XR hand LT min 3V* XR/XR hand LT min 3V*[place] Other XR hand LT min 3V*IMPRESSION:No acute findingsBagwell NoiseFree Other XR hand LT min 3V*Impression dictated by: Elton Rodrigez M.D.10/18/2021 11:50 [facility] NoiseFree Other xr hand LT min 3V*Dictation Location: [id number] NoiseFree Other xr hand LT min 3V*Transcribed By: DIANA 10/18/21 1150 [place] Other xr hand LT min 3V*Dictated By: Elton Rodrigez DO 10/18/21 1149[employer] NoiseFree Other xr hand LT min 3V*Signed By:[place] Other xr hand LT min 3V*10/18/21 115Rusk Rehabilitation CenterNitro PDF Other phone Msgon [phone] MsgEntered by NAZ LONG MD, FACOG on April 22, 2021 15:42:24 EDT From: NAZ LONG MD, FACOG To: [facility]/pharmacy #[id number] Sent: 04/22/2021 15:42:23 EDT Subject: Medication Management Not Approved: Patient should contact Prescriber first ibuprofen = Motrin, Advil (IBUPROFEN 600 MG TABLET) TAKE 1 TABLET BY MOUTH EVERY 6 HOURS Qty: 40 tabs Days Supply: 10 Refills: 0 Substitutions Allowed Route To Pharmacy - [facility]/pharmacy #[id number] From: [id number] To: NAZ LONG MD Sent: April 22, 2021 3:29:46 PM EDT Subject: Medication Management Due: April 08, 2021 4:20:54 PM EDT On Hold Pending Signature Dispensed Drug: ibuprofen = Motrin, Advil (ibuprofen 600 mg oral tablet), TAKE 1 TABLET BY MOUTH EVERY 6 HOURS Quantity: 40 tabs Days Supply: 10 Refills: 0 Substitutions Allowed Notes from Pharmacy: [facility] Operative Reporton [id number] ReportMR#: [id number] S [facility] Pt. Name: Torrey Antony Room #: 0C Discharge Date: Birthdate: 1990 OPERATIVE REPORT DATE OF SURGERY: 11/30/2020 SURGEON: Frances Nicole M.D. DAT INSTRUCTOR: Maribel Vazquez MD PREAMBLE: A 29-year-old female [...] Mathew/Frances Nicole M.D. Date Trans: 11/30/2020 10:59 A/mmo DN_JN:[id number] cc: Miriam Reeves, ASBESTOS REMOVAL SUPERVISOR [address] [facility] [address]PzosgkOfjBarberton Citizens Hospital GLUCOSE LABon 04-63-4325Dqzlnsn [Mass/Vol]75 mg/nNJtgojk89-724Emg [facility] HospitalComment on above:Performed By: #### [id number] #### [facility] [address] [place] [address], [facility] URINE PREGNANCYon 80-43-6104Bdgy HCG ( test) Ql (U)NegativeNormalNEGATIVEThe [facility] HospitalComment on above:Result Comment: Performed in PACUPerformed By: #### [id number] #### [facility] [address] [place] [address], [facility] MEDICAL CENTERPhone Msgon [phone] Msg From: MERCEDES HOPKINS FACOGNAZ To: TORREY ANTONY Sent: 11/20/2020 22:44:14 EDT Subject: Normal pap Torrey, Your pap smear was normal. Naz Long MDNoKettering Health Washington TownshipTHIN PREP IMAGE SEND OUT on 42-62-1449VSUZ PREP IMAGE SEND OUTSee ReportNoKettering Health Washington TownshipComment on above:Performed By: #### CD:[id number] #### [facility] Services [address] [place] [address] Major Account Manager: Yobany Diaz MDOperative Reporton [id number] ReportIndication for Surgery Desires sterilization Preoperative Diagnosis Desires sterilization Postoperative Diagnosis Desires sterilization Operation Laparoscopic bilateral salpingectomy for sterilization Surgeon(s) Mercedes Anesthesia GET Estimated Blood Loss <5 mL Urine Output 50 mL Findings Normal uterus and left ovary Specimen(s) Bilateral fallopian tubes Complications none Technique Torrey was taken to the operating room where general endotracheal anesthesia was obtained withoutdifficulty. She was placed in the dorsal lithotomy position. A speculum was placed in her vagina. The anterior lip of the cervix was grasped with a single-toothed tenaculum. The cervix was dilated and a uterine manipulator was placed in the uterus. I changed gloves. Attention was turned to her abdomen where a 5 mm incision was made in the umbilicus with a scalpel.A 5 mm trocar was placed under direct visualization. CO2 gas was used to create a pneumoperitoneum.We inspected the pelvis. The left ovary and [...] absent. There was no active bleeding. The proc edure was terminated. All instruments were removed from the pelvis. Sponge, lap and needle counts were correct. The 5 mm ports were reapproximated with a 4-0 vicryl and surgical glue was placed over all incisions. She was awoken from anesthesia and taken to the recovery room in stable and satisfactory condition.Sponge, lap and needle counts were correct at the end of the procedure. t. Rita's HospitalAmb Office-Progress Notes-Provideron 94-56-1236Zep Office-Progress Notes-ProviderAssessment/Plan 1. Cervical cancer screening Z12.4 Ordered: AMB Office/Outpt Est Pt SF MDM / 10-19 min 00704, 11/08/2020 12:43:00 EDT, Cervical cancer screening THIN PREP IMAGE SEND OUT, ROUTINE, 11/08/2020, Specimen type: LOG ROLLER Spec, Dx: Cervical cancer screening Chief Complaint [...] normal: yes Insight and judgement normal: yes LOG ROLLER: External genitalia: normal, no lesions Urethra: normal meatus Vagina: normal no lesions, no discharge, vault normal Cervix: no lesions, no cervical motion tenderness, normal appearance Uterus: normal mobility, non-tender, normal size, shape and consistency Adnexa: normal Cul de sac: normal Perineum: no hemorrhoids, masses or warts noted LOG ROLLER Additional Details Menstrual History Menstrual StatusProphylaxis Problem List/Past Medical History Ongoing Anxiety BMI 33.0-33.9,adult Gastritis Irregular periods IUD (intrauterine device) in place Migraine with aura Historical Procedure/Surgical History Anjana IUD Lot # [id number] (07/29/2020) LAPAROSCOPIC RIGHT OOPHERECTOMY (12/24/2018) D&C/Nexplanon removal () D&C, retained placenta (2014) Pap negative (06/16/2014) Medications ibuprofen 600 mg oral tablet, 600 mg= 1 tabs, ORAL, [id number] Anjana 13.5 mg intrauterine device, 13.5 mg= [...] (Dx about 72). Stroke..: Grandfather and Grandmother. [facility] DaytonAmbulatory Clinical Summaryon [id number] Clinical SummaryDODIETORREY SON :1990 Visit Date:11/08/2020 Ambulatory Visit Instructions Your Care Team Attending Physician - NAZ LONG MD, FACOG Primary Care Physician - NO FAMILY PHYSICIAN, 837 Procedures Performed Anjana IUD Lot # [id number] (07/29/2020) LAPAROSCOPIC RIGHT OOPHERECTOMY (12/24/2018) D&C/Nexplanon removal [...] signs, call to get immediate medical attention! t. Rita's HospitalPhone Msgon 72-68-5335Wozkm MsgEntered by Luli Ribeiro on September 15, 2020 11:07:26 EDT I called and left her a voice mail to call and scheduled her surgery. Please find the order information listed below. Ordered By:NAZ LONG MD, FACOG REGIMEN_DETAIL: Requested Start Date/Time: 09/14/2020 11:37:00 EDT Intent of therapy: From: Luli Ribeiro ([facility] Surgery Scheduling) To: NAZ LONG MD; Sent: 09/15/2020 16:07:14 EDT Subject: RE: AMB Schedule Surgery called back and scheduled her, made her post op appt. she is scheduled for 11/19/2020 scheduled her, made her post op appt. she is scheduled for 11/19/2020 [facility] CenterPhone Msg From: Luli Ribeiro ([facility] Surgery Scheduling) To: NAZ LONG MD; Sent: 09/15/2020 11:06:57 EDT Subject: RE: AMB Schedule Surgery Called and left her a voice mail to call and schedule her surgery, I am looking at 10/15/2020 at the [facility]. Please find the order information listed below. Ordered By:NAZ LONG MD, FACOG REGIMEN_DETAIL: Requested Start Date/Time: 09/14/2020 11:37:00 EDT Intent of therapy:[facility] HospitalAmbulatory Clinical Summaryon 12-90-3065Cdeeuoxsop Clinical SummaryHATORREY ABREU :1990 Visit Date:09/14/2020 Ambulatory Visit Instructions Your Diagnosis Mastalgia Your Care Team Attending Physician - NAZ LONG MD, FACOG Primary Care Physician - NO FAMILY PHYSICIAN, 837 Procedures Performed Anjana IUD Lot # [id number] (07/29/2020) LAPAROSCOPIC RIGHT OOPHERECTOMY (12/24/2018) Laparoscopy, surgical; [...] Appointments Sunday. 2020 1:30 PM EDT With: MERCEDES HOPKINS FACOG, NAZ Where: [facility] [...] Oral DAILY as needed for as needed formigraine headache What How Much When Comments Stop [...] warning signs, call to get immediate medical attention![facility] HospitalPhone Msgon [phone] Msg From: Cat Diaz To: Luli Ribeiro; Sent: 09/14/2020 12:57:29 EDT Subject: Surgery Pt needs scheduled for a tubal ligation. Forms have been scanned into documents - consent.[facility] HospitalAmbulatory Clinical Summaryon 98-99-1658Sddyhwgrlj Clinical SummaryHATORREY ABREU :1990 Visit Date:07/29/2020 Ambulatory Visit Instructions Your Diagnosis Pre-procedure lab exam Encounter for IUD removal and reinsertion Tests Performed AMB Urine POC 03170 Your Care Team Attending Physician - MERCEDES HOPKINS FACOG, NAZ Primary Care Physician - NO FAMILY PHYSICIAN, 837 Procedures Performed Anjana IUD Lot # [id number] (07/29/2020) Kyleena Iud removed 07/29/20 (12/24/2018) LAPAROSCOPIC [...] Oral DAILY as needed for as needed formigraine headache Test Results AMB Urine POC 14534 (07/29/2020) U beta hCG Ql - Negative [...] warning signs, call to get immediate medical attention![facility] HospitalPhone Msgon [phone] Msg From: Gay Lam To: Kathleen Lopez RN; Sent: 07/13/2020 15:20:51 EST Subject: test results Patient is calling and would like to have the results from her genetic testing. If you can please call her. [phone] From: Kathleen Lopez RN To: NAZ LONG MD; Sent: 07/13/2020 15:29:49 EST Subject: FW: test results I spoke with her about her results.[facility] GENITALon 06-26-2020 [facility] Dept of Laboratory Services [address] [place] [id number] Name: TORREY ANTONY : 1990 Admitting Provider: Gender: Female [facility] [phone] Number: Location: [facility]. Admit 06/22/2020 Date: Discharge 06/22/2020 [...] Gram Stain consistent with normal vaginal secretions. L=Low, H= High, *= Abnormal, C=Critical, f=Footnote, c=Corrected, i=Interp Data Name: TORREY ANTONY Print Date06/28/2020 08:29 EST Time:St. Rita's HospitalComment on above:Performed By: #### [id number] #### [facility] [address] [place] [address] Major Account Manager: OBDULIO Jackson CHLAMon 99-82-5187Dqwdlszu Chlamydia NegativeSt. Rita's HospitalComment on above:Order Comment: Ordered on Fin# [id number] Comment: This Chlamydia assay is being performed via a second generation NAAT that utilizes target capture, inventory accountant mediated amplification and dual kenetic assay technologies. Performed By: #### CD:[id number], [id number], [id number] ####[facility] [address] [place] [address] Medical Director: OBDULIO Jackson GCon 65-23-1242Euzaloqo GCNegativeFulton Medical Center- Fultonal [facility] Hospital - WestComment on above:Order Comment: Ordered on Fin# [id number] Comment: This Gonorrhoea assay is being performed via a second generation NAAT that utilizestarget capture, inventory accountant mediated amplification and dual kenetic assay technologies.Performed By: #### CD:[id number], [id number], [id number] ####[facility] [address] [place] [address] Medical Director: OBDULIO Jackson Trichomonason 30-90-5796BW TrichomonasNegativeSt. Rita's HospitalComment on above:Order Comment: Ordered on Fin# [id number] Comment: This Trichomonas assay is being performed via a second generation NAAT that utilizes target capture, inventory accountant mediated amplification and dual kenetic assay technologies.Performed By: #### CD:[id number], [id number], 324267 ####[facility] [address] [place] [address] Medical Director: CYNTHIA Jackson B AGon 46-13-7417Licbbrbya B Surface AntigenNon-ReactiveNormal [facility] - WestComment on above:Order Comment: Ordered on Fin# [id number] Comment: High levels of serum biotin may interfere with this test.Performed By: #### [id number], [id number] #### [facility] [address] [place] [address] Major Account Manager: CYNTHIA Jackson C ABon 70-90-5839Jwjqmrerx C Antibody Non-ReactiveSt. Rita's HospitalComment on above:Order Comment: Ordered on Fin# [id number] By: #### [id number], [id number] #### [facility] [address] [place] [address] Major Account Manager: TAQUERIA Jackson 1O2on 65-39-6591QWE Panel 1&2 Non-ReactiveSt. Rita's HospitalComment on above:Order Comment: Ordered on Fin# [id number] By: #### [id number] #### [facility] [address] [place] [address] Major Account Manager: ARMINDA JacksonPRoliseth 93-48-2624Owxzrj Ab RPR Ql (S) Non-ReactiveSt. Rita's HospitalComment on above:Order Comment: Ordered on Fin# [id number] By: #### [id number] #### [facility] [address] [place] [address] Major Account Manager: Dayana Jacksonmayo clinic [place] Clinical Summaryon 06-22-2020 Ambulatory Clinical SummaryTORREY ABREU:1990 Visit Date:06/22/2020 Ambulatory Visit Instructions Your Diagnosis Exposure to sexually transmitted disease (STD) Family history of ovarian cancer Ovarian cyst Pain due to intrauterine contraceptive device (IUD) Tests Performed US TV ECHO NON OB OFFICE READ -- Results Pending -- You will be contacted within 72 hours with your results. Your Care Team Attending Physician - NAZ [...] Agatha ROBLES 2020 11:30 AM EST With: NZA LONG MD, FACOG Where: [facility] You Need to Schedule the Following [...] future visit, Dx: Exposure to sexually transmitted disease(STD) HEPATITIS B ANTIGEN, ROUTINE, 06/22/2020, Order for [...] Oral DAILY as needed for as needed formigraine headache What How Much When Comments Stop [...] of these heart attack warning signs, call 02-16- to get immediate medical attention!St. Rita's HospitalPhone Sunita [phone] Msg From: Johnna Wilkinson To: John ALEGRIA, Kathleen; Sent: 06/22/2020 12:48:37 EST Subject: Cytote Patient is scheduled to have her Kyleena removed and Anjana inserted on 07/[address]. She does not get periods. Will you please call her in a prescription for the cytotec?? She is aware thatshe needs to pick it up when it is called in. Cytote proposedNormKettering Health – Soin Medical CenterUS TV ECHO NON OB OFFICE READon [id number] TV ECHO NON OB OFFICE READIndication: IUD break through bleeding and RLQ pain A transvaginal ultrasound was performed. The uterus was visualized. The uterus measured 8.8 by 4.2 by 5.4 cm. The uterus was anteverted. Themyometrium was homogeneous. The endometrium was thin and [...] in correct position and orientation. Normal left ovary.St. Rita's HospitalComment on above:Order Comment: Ordered on Fin# [id number] Comment: Technologist: DM Dictated By: NAZ LONG MD, FACOG Signed By: NAZ LONG MD, FACOG Transcribed: 06.22.2020 14:34 Signed Out: 06/22/20 14:34:04Operative Reporton [id number] ReportMR#: [id number] S [facility] Pt. Name: Torrey Antony Room #: 0C Discharge Date: Birthdate: 1990 OPERATIVE REPORT DATE OF SURGERY: 04/26/2020 SURGEON: Frances Nicole M.D. DAT INSTRUCTOR: Maribel Vazquez MD PREOPERATIVE DIAGNOSIS: Left wrist [...] Vazquez MD Date Trans: 04/26/2020 11:31 A/simran DN_JN:[id number] cc: Miriam Reeves, ASBESTOS REMOVAL SUPERVISOR [address] [facility] [address]VlgfqhSqzBarberton Citizens Hospital GLUCOSE LABon [id number] [Mass/Vol]81 mg/gKHrxpxp89-163Hej [facility] HospitalComment on above:Performed By: #### [id number] #### [facility] [address] [place] [address], [facility]ENTERPO URINE PREGNANCYon 53-56-8160Ldri HCG ( test) Ql (U)NegativeNormalNEGATIVEThe [facility] HospitalComment on above:Result Comment: Performed in PACUPerformed By: #### [id number] #### [facility] [address] [place] [address], [facility]*SARS-CoV-2 COVID-19on 97-75-4509QAKA-CoV-2 (COVID-19) RNA OK+probe Ql (Unsp spec)Not detectedNormalNot DetectedThe [facility] HospitalComment on above:Order Comment: The Aptima SARS-CoV-2 assay is a nucleic acid amplification test intended for the qualitative detection of RNA from SARS-CoV-2 isolated and purified from nasopharyngeal (FLOOR SCRAPER),oropharyngeal (OP), nasal swab, sputum, and bronchoalveolar lavage (BAL) specimens from patients with signs and symptoms of infection who are suspected of COVID-19. Results are for the identification of SARS-CoV-2 RNA. The SARS-CoV-2 RNA is generally detectable during the acute phase of infection. The Aptima SARS-CoV-2 Assay on the PowerVision system is intended for use by laboratory personnel specifically instructed and trained in the operation of the TVbeat and TVbeat Fusion system. The Aptima SARS-CoV-2 assay is [...] with clinical observations, patient history, and epidemiological information.Performed By: #### [id number] #### [address] Hepatobiliary System w/ Pharmon [id number] Hepatobiliary System w/ PharmPatient Name: TORREY ANTONY Nuc Med Exam Date/Time 06/12/2017 13:09:26 EST Exam NM Hepatobiliary Duct System Imaging Ordering Physician DO ROWELL PAUL FRANCIS Accession Number [id number] CPT4 Codes 41542 () Reason For Exam Nausea Report Study: HEPATOBILIARY SCANwith CCK CLINICAL INDICATION: abdominal pain TECHNIQUE: Following the intravenous administration of 3.5 mCi Tc-99m Choletec a hepatobiliary study was performed. Images were then acquiredover the abdomen in the anterior projection for [...] by: MD BERGER JOHN Transcribed Date and Time:06/12/2017 1:28Sam[facility]itan Medical CenterCNOVon [id number] Visit (GABY) --------TORREY ANTONY ([id number]) 1990 FDate Time Provider Skegjkjvoz14/5/17 9:30 AM KAMRAN WALLIS) GABY During your visit today, we recorded the following information about you: Temperature Pulse Respiration Blood pressure 96.8 degrees 101/minute 16/minute 113/80 Weight 87.1 kgRachel L CHASIDY Wallis PA 05/22/2017 10:14 AM Uskwop7705/22/2017Patient presents with:Acute VisitSUBJECTIVE: This is a 26 [...] diarrhea, backpain, chest pain, or UTI symptoms.She reportsh/o ANDquot;gallbladder issuesANDquot; but states that all studiesANDquot;never [...] none.Reviewed meds, OTCs, herbals or supplements.Reviewed allergies, medications , and past medical history..PAST MEDICAL HISTORYDiagnosis Date- AnxietyALLERGIES Review of patient's allergies indicates no known allergies.MEDICATIONSCurrent Outpatient Prescriptions:ibuprofen (MOTRIN) 600 mg tablet Take 1 tablet by mouth every 6 hours as neededfor Pain.oxyCODONE-acetaminophen (PERCOCET) 5-325 mg tablet Take 1 tablet by mouth every4 hours as needed for Pain.ONABOTULINUMTOXINA (BOTOX INJECTION) by INJECTION(UNSPECIFIED PARENTERALROUTES) route.No current facility-administered medications for this visit.Medications and allergies reviewed by this provider.SOCIAL HISTORYSocial History Marital status: Single Spouse name: Years of education: Number of children:Social History MainTopics Smoking status: Never Smoker Smokeless status: Never Used Alcohol use: Yes Comment: 1-2 per month Drug use: No Sexual activity: Yes Partners with: Male Comment: depo shotREVIEW OF SYSTEMSReview of SystemsROS: constitutional-neg, heent-neg, heart-neg, respiratory-neg, GI-n/v, -neg,skin-neg,lymph-neg, All systems neg except as noted above in HPI.OBJECTIVE:BP 113/80 Pulse 101 Temp 36 ?C (96.8 ?F) (Left Tympanic) Resp 16 Wt87.1 kg (192 lb) BMI 31.95 kg/m2. Vital signs reviewed by this provider.Physical ExamAAOx3, no acute distress, patient is pleasant, well groomed, dressedappropriately.General: WD, WN, NAD, alert.Chest: CTA bilaterally with equal breath sounds; good air exch charlee throughout.No wheezing, rhonchi, or crackles; no retractions, tripoding, or nasal flaringnoted.Heart: RRR, no murmur, rub, or gallop..Abdomen: BS x 4 quads, soft, nondistended, generalized pain and became tearfulwith exam 10/10 pain with palpation- no specific focus of pain, no masses ororganomegaly, no rebound tenderness or guarding. No CVA tenderness topercussion.Skin: no rash noted, cap refill ANDlt;3sec, normal skin turgor noted.ASSESSMENT/PLAN:1. Generalized abdominal pain - ICD9: 789.07, ICD10: R10.84 (primary diagnosis)2. Epigastric abdominal pain - ICD9: 789.06, ICD10: R10.133. Non-intractable vomiting with nausea, unspecified vomiting type - ICD9:787.01, ICD10: R11.2- 10/10 abdominal pain (tearful) - generalized, but more specific to centraland epigastric- Recurring vomitingand nausea- States she is Unable to keep food/fluids down- She reports h/o ANDquot;gallbladder issuesANDquot; but states that all studiesANDquot;never show anythingANDquot;- Vitals stable, no fever. S he refused offer of antiemetics, PPI, and watch ansee option for likely simply viral cause- and go to ER this afternoon ifpersisting. She would prefer ER now. Unable to order labs, fluids, or any imaging from [facility] Care settingReferred to ER for further eval of pain- labs, fluids, [facility], no fever. She refused offer of antiemetics, PPI, and watch ansee option for possible simply viral cause- and go to ER this afternoon ifpersisting. She would prefer ER now.No further questions.Follow up as needed.Barriers to learning: none.The patient verbalizes understanding and is in agreement with plan of care.Cristino Krishnamurthy PA-C, MARCIN 05/22/2017 9:36 AM SignedASSESSMENT/PLAN:1. Generalized abdominal pain -2. Epigastric abdominal pain -3. Vomiting with nausea, unspecified vomiting type -- 10/10 abdominal pain (tearful) - generalized, but more epigastric and RUQ- Recurring vomiting and nausea- Unable to keep food/fluids downReferred to ER for further eval of pain- labs, fluids, may need imagingNo further questions.Follow up as needed.Barriers to learning: none.The patient verbalizes understanding and is in agreement withplan of care.MARCIN Krishnamurthy-CReferring Provider: SELF [[id number]]Allergies As [...] food/fluids down Referred to ER for further evalof pain- labs, fluids, may need imaging No further questions. Follow up as needed. Barriers to learning: none. The patient verbalizes understanding and is in agreement with plan of care. FRANSISCO [facility]urthyMount [facility] MARCIN Jorgensen-[address], [address] [place] [id number]: [phone]: [phone] P [place] 2016RE: Torrey AntonyTo Whom it May Concern:This is to certify that Torrey Antony was seen here for medical care.Please excuse them from work today.Thank you for your cooperation in this matter.Sincerely,Kamran Wallis PA-C(Electronically signed to expedite processing) Status:Closed by KAMRAN WALLIS on 05/22/17[facility] HospitalPROESSon [id number] HNO ID: [id number]: Kamran Lubin (Chasidy) Jesus Wallis: (none)Author Type: Physician AssistantType: Progress [...] studies nevershow anything .Denies fever, chills, sweats, orfatigue.Patient denies wheezing, shortness of breath, increased WOB, [...] supplements.Reviewed allergies, medications, and past medical history..PAST MED ICAL HISTORYDiagnosis Date- AnxietyALLERGIES Review of patient's allergies indicates no known allergies.MEDICATIONSCurrent Outpatient Prescriptions:ibuprofen (MOTRIN) 600 mg tablet Take 1 tablet by mouth every 6 hours asneeded for Pain.oxyCODONE-acetaminophen (PERCOCET) 5-325 mg tablet Take 1 tablet by mouthevery 4 hours as needed for Pain.ONABOTULINUMTOXINA (BOTOX INJECTION) by INJECTION(UNSPECIFIED PARENTERALROUTES) route.No current facility- administered medications for this visit.Medicationsand allergies reviewed by this provider.SOCIAL HISTORYSocial History Marital status: Single Spouse name: Years of education: Number of children:Social History Main Topics Smoking status: Never SmokerSmokeless status: Never Used Alcohol use: Yes Comment: 1-2 per month Drug use: No Sexual activity: Yes Partners with: Male Comment: depo shotREVIEW OF SYSTEMSReview of SystemsROS: constitutional-neg,heent-neg, heart- neg, respiratory-neg, GI-n/v,-neg, skin-neg, lymph-neg, All systems neg except as noted above inHPI.OBJECTIVE:BP 113/80 Pulse 101 Temp 36 ?C (96.8 ?F) (Left Tympanic) Resp 16 Wt 87.1 kg (192 lb) BMI 31.95 kg/m2. Vital signs reviewed by thisprovider.Physical ExamAAOx3, noacute distress, patient is pleasant, well groomed, dressedappropriately.General: WD, WN, NAD, alert.Chest: CTA bilaterally with equal breath sounds; good air exchangethroughout. No wheezing, rhonchi,or crackles; no retractions, tripoding,or nasal flaring noted.Heart: RRR, no murmur, rub, or gallop..Abdomen: BS x 4 quads, soft, nondistended, generalized pain and becametearful with exam 10/10 painwith palpation- no specific focus of pain, nomasses or organomegaly, no rebound tenderness or guarding. No CVAtenderness to percussion.Skin: no rash noted, cap refill <3sec, normal skin turgor noted.ASSESSMENT/PLAN:1. Generalized abdominal pain - ICD9: 789.07, ICD10: R10.84 (primarydiagnosis)2. Epigastric abdominal pain - ICD9: 789.06, ICD10: R10.133. Non-intractable vomiting with nausea, unspe cified vomiting type - ICD9:787.01, ICD10: R11.2- 10/10 abdominal pain (tearful) - generalized, butmore specific tocentral and epigastric- Recurring vomiting and nausea- States she is Unable to keepfood/fluids down- She reports h/o gallbladder issues but states that all studies nevershow anything - Vitals stable, no fever. She refused offer of antiemetics, PPI, andwatch an see option for likely simply viral cause- and go to ER thisafternoon if persisting. She would prefer ER now. Unable toorder labs, fluids, or any imaging from this [facility] CaresettingReferred to ER for further eval of pain- labs, fluids, may need imaging-[facility] ERVitals stable, no fever. She refused offerof antiemetics, PPI, and watchan see option for possible simply viral cause- and go to ER this afternoonif persisting. She would prefer ER now.No further questions.Follow up as needed.Barriers to learning: none.The patient verbalizes understanding and is in agreement with plan ofcare.Adam Krishnamurthy [facility] Chest PA/LATon [id number] Chest PA/LATPatient Name: TORREY ANTONY Diagnostic Radiology Exam Date/Time 04/07/2017 10:07:18 EDT Exam CR Chest PA/LAT Ordering Physician MD RUTHIE, MAURO Lubin Accession Number [id number] CPT4 Codes 39232 () Reason For Exam dyspnea Report CHEST [...] CHRISTIAN ADAM Transcribed Date and Time: 04/07/2017 10:25[facility] CenterRF Small Bowel w/ Serial Filmson [id number] Small Bowel w/ Serial FilmsPatient Name: TORREY ANTONY Fluoroscopy Exam Date/Time01/01/2017 10:06:32 EDT Exam RF Small Bowel w/ Serial Films Ordering Physician DO ROWELL PAUL FRANCIS Accession Number [id number] [facility]4 Codes 52617 () Reason For Exam epigastric pain Report Small bowel follow-through: 01/01/2017. CLINICAL INFORMATION: Epigastric pain. FINDINGS: A small bowel fo llow-through only was performed as requested. The upper [...] FONG RISA Transcribed Date and Time: 01/01/2017 11:18[facility] Hospitalurgical Pathologyon [id number] [id number] [facility] PATHOLOG[facility] AND LABORATO [address] [address] Fax - FINAL SURGICAL PATHOLOGY REPORT NA ME: TORREY ANTONY .O.B.: 1990 25 Y F BILLING NO.: [id number]: WENDO PROCEDURE 12/12/2016 DATE:SURGEON: MANI ROWELL DO RECEIVED 12/13/2016 DATE:ATTENDING: MANI ROWELL DO REPORT DATE: 12/14/2016 COPIES TO: ____DIAGNOSIS:A. DUODENUM, SECOND PART, BIOPSY - UNREMARKABLE DUODENAL MUCOSA Comment: The specimendemonstrates an unremarkable villous architecture without significantly increased intraepithelial lymphocytes. Whipple's disease is not identified. Parasites are not identified.B. STOMACH, ANTRUM, BIOPSY - REACTIVE GASTROPATHY Comment: Evaluation of the H of Helicobacter pylori or any morphologic features to suggest infection with the organism; as such, further studies for Helicobacter are not indicated. There is no evidence of intestinal metaplasia, dysplasia or malignancy. Reference: Marko Toscano al. Appropriate use of special stains for identifying Helicobacter pylori: Recommendations from the Behzad Joya Haggitt Gastrointestinal Pathology Society. Am J Surg Pathol. 2013 Nov;37(11):e12-22.ASJ/0RW ANNMARIE HUERTA M.D. CLI NICAL INFORMATION: Epigastric abdominal pain, hematemesisSPECIMEN: (A) DUODENUM, BIOPSY (B) GASTRIC BIOPSY GR OSS DESCRIPTION:A. Duodenum, second part Received in formalin are two charles soft mucosal fragments that are 0.1and 0.2 cm in greatest dimension. Submitted entirely in one cassette.(2 ns, 1)B. Antrum, rule out Helicobacter pylori Received in formalin are two charles soft mucosal fragments that are each0.2 cm in greatest dimension. Submitted entirely in one cassette. (2ns, 1) MLC1/VHJ7Sicguznxsh: The following statement applies to allimmunohistochemistry, in situ hybridization, molecular studies, andimmunofluorescence testing.The use of one or more reagents in the above tests is regulated as ananalyte specific reagent(ASR). These tests were developed and theirperformance characteristics determined by the clinical laboratories [facility]. They have not been cleared by the US Food and DrugAdministration (FDA). The FDA has determined that such clearance orapproval is not necessary.All the above immunostains were performed on paraffin embedded tissue.Appropriate positive and negative controls (where applicable) were runin parallel with the patient's specimen; these controls showed expectedstaining pattern, with acceptable intensity of staining.Immunohistochemical assays have not been validated on de calcifiedtissues. Results should be interpreted with caution given the raisedpossibility of false negativity on decalcified specimens[place] [address]. DEPARTMENT OF PATHOLOGY AND LABORATORY MEDICINE [place], [place] [address]OtxjduQmgzkSamaritan Medical CenterComment on above:Performed By: #### SHAQ ####Performing Lab is in reportUS Abdomen Limitedon [id number] Abdomen LimitedPatient Name: TORREY ANTONY Ultrasound Exam Date/Time 12/12/2016 12:25:54 EDT Exam US Abdomen Limited Ordering Physician DO ROWELL PAUL FRANCIS Accession Number [id number] CPT4 Codes 64074 () Reason For Exam epigasric pain Report RIGHT UPPER QUADRANT ULTRASOUND CLINICAL INDICATION: Epigastric pain Multiple sonographic images of the gallbladder and right upper quadrant of the abdomen were obtained. COMPARISON: 07/07/2011 FINDINGS: The gallbladderis unremarkable in appearance. No gallstones, gallbladder wall thickening, or pericholecystic fluidis identified. Sonographic Mast's sign is negative. The [...] CHRISTIAN ADAM Transcribed Date and Time: 12/12/2016 3:07NormalSMcLaren Lapeer RegionAnti-Nuclear Antibodyon [id number] Titer<1:40Normal<1:40SMcLaren Lapeer RegionComment on above:Performed By: #### VLADISLAV ####[address] [address] Vital Signs Date TimeVital SignValuePerforming [id number] 14:50-0400Body ymvviitcbzw63.8 [degF]FLOOR SCRAPER-C Tiki Thomas Work Phone: [phone] [place], [place] 6003504-30-2024 14:50-0400 Diastolic blood gudwfkky90 mm[Hg]FLOOR SCRAPER-C Tiki Thomas Work Phone: 1([phone] [place], [place] 6003504-30-2024 14:50-0400 Heart rate77 /minNP-C Tiki Thomas Work Phone: [phone] [place], [place] 6003504-30-2024 14:50-0400 Respiratory rate16 /minNP-C Tiki Thomas Work Phone: [phone] [place], [place] 6003[address]-30-2024 14:50-0400 SaO2% (BldA) [Mass fraction]98 %FLOOR SCRAPER-C Tiki Thomas Work Phone: [phone])[address] [place], [place] 6003[address]-30-2024 14:50-0400 Systolic blood grnkqetz599 mm[Hg]FLOOR SCRAPER-C Tiki William Work Phone: 1(526)[address] [place], [place] 6003504-30-2024 10:05-0400 Body ugthwt136.1 cmNP-C Tiki Thomas Work Phone: 1(950)[address] [place], [place] 6003504-30-2024 10:05-0400 Body htzyur70.1 kgNP-C Tiki Thomas Work Phone: [facility]04-29-2024 16:25-0400 Diastolic blood aolumgzx72 mm[Hg][facility]04-29-2024 16:25-0400Heart rate95 /minOhiohealth Doctors Hospital04-29-2024 16:25-0430OaF8% (BldA) [Mass fraction]99 %[facility] 10-15-2023 16:25-0400Systolic blood ybgusrwz064 mm[Hg][facility]10-05-2023 16:00-0400Body daqkpv918.64 cmStushar Choi Other [employer] Other 10-05-2023 16:00-0400Diastolic blood fqemulgv29 mm[Hg] Mark Choi Other [employer] Other 10-05-2023 16:00-2530UlF4% (BldA) [Mass fraction]98 % Mark Choi Other [employer] Other 10-05-2023 16:00-0400Systolic blood jcboigar672 mm[Hg] Mark Choi Other [employer] Other 07-05-2023 09:00-0400Body .64 Vinh Jackman Other [employer] Other 07-05-2023 09:00-0400Body mass index (BMI) [Ratio] 30.37 kg/t3OykzeArely Jackman Other [employer] Other 07-05-2023 09:00-0400Body .37 kgPekavitha Jackman Other [employer] Other 07-05-2023 09:00-0400Diastolic blood wsayufdv93 mm[Hg] Arely Jackman Other [facility] [employer] Other 07-05-2023 09:00-1484WaY9% (BldA) [Mass fraction]99 % Arely Jackman Other [facility] [employer] Other 07-05-2023 09:00-0400Systolic blood ifhnfjey573 mm[Hg] Arely Jackman Other [employer] Other 06-29-2023 13:15-0400Body zaupai833.64 cmStushar Choi Other [employer] Other 06-29-2023 13:15-0400Diastolic blood bnuswmtd02 mm[Hg] Mark Choi Other [employer] Other 06-29-2023 13:15-2779ZxR0% (BldA) [Mass fraction]98 % Mark Choi Other [employer] Other 06-29-2023 13:15-0400Systolic blood tsjnuocg549 mm[Hg] Mark Choi Other [employer] Other 06-21-2023 13:08-0400Diastolic blood sjdpkxob05 mm[Hg] FLOOR SCRAPER-C Tiki William Work Phone: [facility]06-21-2023 13:08-0400 Heart rate87 /minNP-C Tiki William Work Phone: [facility]06-21-2023 13:08-0400 Respiratory rate16 /minNP-C Tiki William Work Phone: [facility]06-21-2023 13:08-0400 SaO2% (BldA) [Mass fraction]98 %FLOOR SCRAPER-C Tiki Thomas Work Phone: [facility]06-21-2023 13:08-0400 Systolic blood ymowsrgh029 mm[Hg]FLOOR SCRAPER-C Tiki Thomas Work Phone: [phone] [place], [place] 4589406-21-2023 12:21-0400 Inhaled oxygen flow rate3 L/minNP-C Tiki Thomas Work Phone: [facility]06-21-2023 09:28-0400 Body ntglne630.1 cmNP-C Tiki Thomas Work Phone: [facility]06-21-2023 09:28-0400 Body .27 kgNP-C Tiki Thomas Work Phone: 1([phone] [place], [place] 4589405-01-2023 17:00-0400 Body gyxhgh164.64 Timmy Choi Other [employer] Other 05-01-2023 17:00-0400Diastolic blood ufjedfus27 mm[Hg] Mark Choi Other [employer] Other 05-01-2023 17:00-9186OwY4% (BldA) [Mass fraction]98 % Mark Choi Other [employer] Other 05-01-2023 17:00-0400Systolic blood dbohwzav764 mm[Hg] Mark Choi Other [employer] Other 03-30-2023 16:30-0400Body .64 Mickytushar Choi Other [employer] Other 03-30-2023 16:30-0400Body mass index (BMI) [Ratio] 30.73 kg/h7KodfkzMark Choi Other [employer] Other 03-30-2023 16:30-0400Body eiaxdx06.37 kgMark Choi Other [facility] Other 03-30-2023 16:30-0400Diastolic blood rxvkhwwa83 mm[Hg] Mark Ramez Other [employer] Other 03-30-2023 16:30-4431MrB5% (BldA) [Mass fraction]99 % Mark Ramez Other [facility] Other 03-30-2023 16:30-0400Systolic blood ytkwuvia394 mm[Hg] Mark Ramez Other [employer] Other 03-09-2023 15:15-0500Body oowlvn261.64 cmStushar Ramez Other [facility] Other 03-09-2023 15:15-0500Diastolic blood jkxtrtis93 mm[Hg] Mark Ramez Other [employer] Other 03-09-2023 15:15-8360NsM7% (BldA) [Mass fraction]98 % Mark Choi Other [employer] Other 03-09-2023 15:15-0500Systolic blood qszmagqh703 mm[Hg] Mark Choi Other [employer] Other 02-14-2023 10:45-0500Body umorvw025.64 cmSherif Ramez Other [employer] Other 02-14-2023 10:45-0500Diastolic blood vpjnovrs05 mm[Hg] Mark Choi Other [employer] Other 02-14-2023 10:45-0714BsU8% (BldA) [Mass fraction]99 % Mark Choi Other [employer] [employer] Other 02-14-2023 10:45-0500Systolic blood wbjyxohm641 mm[Hg] Mark Choi Other [employer] Other 12-07-2022 17:00-0500Body xevjvo203.64 cmStushar Choi Other [employer] [employer] Other 12-07-2022 17:00-0500Diastolic blood pressureStushar Choi Other [facility] Other 12-07-2022 17:00-0500Systolic blood ejnxvssg799 mm[Hg] Mark Choi Other [employer] Other 11-15-2022 15:15-0500Body htiojk519.64 Vinh Jackman Other [facility] [employer] Other 11-15-2022 15:15-0500Body mass index (BMI) [Ratio] 31.53 kg/m0JndcnArely Jackman Other [employer] Other 11-15-2022 15:15-0500Body .63 kgPekavitha Jackman Other [employer] Other 11-15-2022 15:15-0500Diastolic blood tyqcinbx88 mm[Hg] Arely Jackman Other [facility] [employer] Other 11-15-2022 15:15-0500Respiratory rate18 /minPeggy Jackman Other [employer] [employer] Other 11-15-2022 15:15-8679UwC9% (BldA) [Mass fraction]99 % Arely Jackman Other [employer] Other 11-15-2022 15:15-0500Systolic blood umtgctjf152 mm[Hg] Arely Jackman Other [employer] Other 08-19-2022 12:00-0400Body bbvybd014.64 cmStushar Choi Other [employer] Other 08-19-2022 12:00-0400Body mass index (BMI) [Ratio] 32.28 kg/k8GlcuaqMark Choi Other [employer] Other 08-19-2022 12:00-0400Body yqtvpq53.72 kgSheverton Choi Other [employer] [employer] Other 08-19-2022 12:00-0400Diastolic blood fncpeycz19 mm[Hg] Mark Choi Other [facility] Other 08-19-2022 12:00-7782YeU5% (BldA) [Mass fraction]99 % Mark Choi Other [employer] Other 08-19-2022 12:00-0400Systolic blood djibsdrt412 mm[Hg] Mark Choi Other [facility] [employer] Other 07-27-2022 16:45-0400Body neuumd891.64 cmStushar Choi Other [facility] [employer] Other 07-27-2022 16:45-0400Diastolic blood rdszdkec19 mm[Hg] Mark Choi Other [employer] Other 07-27-2022 16:45-2399EvB6% (BldA) [Mass fraction]99 % Mark Choi Other [facility] Other 07-27-2022 16:45-0400Systolic blood rdcvseoe335 mm[Hg] Mark Choi Other [employer] Other 07-11-2022 12:30-0400Body bhoxnu877.64 Timmy Choi Other [employer] Other 07-11-2022 12:30-0400Body mass index (BMI) [Ratio] 33.25 kg/p8Favvok Ramez Other [employer] Other 07-11-2022 12:30-0400Body xoqxoe34.44 kgShketurahasa Ramez Other [employer] Other 07-11-2022 12:30-0400Diastolic blood qacnkyrd76 mm[Hg] Mark Choi Other [facility] Other 07-11-2022 12:30-0932JdL7% (BldA) [Mass fraction]99 % Mark Choi Other [employer] Other 07-11-2022 12:30-0400Systolic blood edqwycnf286 mm[Hg] Mark Medeirosky Other [employer] Other 06-09-2022 14:45-0400Body .64 cmStushar Choi Other [employer] [employer] Other 06-09-2022 14:45-0400Body mass index (BMI) [Ratio] 34.05 kg/v5Xqbniw Zaky Other [employer] Other 06-09-2022 14:45-0400Body ycaogv38.71 kgSheverton Choi Other [facility] Other 06-09-2022 14:45-0400Diastolic blood jgybpvvq71 mm[Hg] Mark Ramez Other [facility] Other 06-09-2022 14:45-3336EaQ6% (BldA) [Mass fraction]99 % Mark Choi Other [facility] Other 06-09-2022 14:45-0400Systolic blood mm[Hg] Mark Ramez Other [employer] Other 05-27-2022 11:00-0400Body upcmvn216.64 cmStushar Choi Other [employer] Other 05-27-2022 11:00-0400Body mass index (BMI) [Ratio] 33.89 kg/o4Lnrviw Zaky Other [employer] Other 05-27-2022 11:00-0400Body wjqjyo02.26 kgShketurahasa Choi Other [facility] Other 05-27-2022 11:00-0400Diastolic blood mm[Hg] Mark Choi Other [facility] Other 05-27-2022 11:00-7367DxO5% (BldA) [Mass fraction]93 % Mark Choi Other [employer] Other 05-27-2022 11:00-0400Systolic blood mosvotxf002 mm[Hg] Mark Choi Other [employer] Other 05-05-2022 12:15-0400Body ipcthg727.64 cmPegleopoldo Jackman Other [employer] Other 05-05-2022 12:15-0400Body mass index (BMI) [Ratio] 33.25 kg/m1Zxwri Jackman Other [employer] Other 05-05-2022 12:15-0400Body mbdppo26.44 kgPeggy Jackman Other [employer] Other 05-05-2022 12:15-0400Diastolic blood abgpwioz96 mm[Hg] Arely Jackman Other [facility] Other 05-05-2022 12:15-0400Systolic blood rjtmalvk623 mm[Hg] Arely Jackman Other [employer] Other 05-03-2022 12:15-0400Body .64 Ketty Quinonez Other [employer] Other 05-03-2022 12:15-0400Body mass index (BMI) [Ratio] 33.41 kg/e3SoongvTiki Quinonez Other [facility] Other 05-03-2022 12:15-0400Body jkmrygvdjbj27.7 [degF]Tiki Quinonez Other [employer] Other 05-03-2022 12:15-0400Body getkba97.9 kgTiki Quinonez Other [facility] Other 05-03-2022 12:15-0400Diastolic blood oqgiakgk07 mm[Hg] Tiki Quinonez Other [employer] Other 05-03-2022 12:15-0400Respiratory rate18 /minTiki Quinonez Other [facility] Other 05-03-2022 12:15-0084FmN5% (BldA) [Mass fraction]99 % Tiki Quinonez Other [facility] Other 05-03-2022 12:15-0400Systolic blood fsceavht252 mm[Hg] Tiki Quinonez Other [employer] Other 03-30-2022 14:00-0400Body henilo399.64 cmSandrés Choi Other [facility] [employer] Other 03-30-2022 14:00-0400Body mass index (BMI) [Ratio] 33.54 kg/p3Pnkjud Ramez Other [employer] Other 03-30-2022 14:00-0400Body xiyhou15.26 kgMark Choi Other [facility] Other 03-30-2022 14:00-6118XyJ8% (BldA) [Mass fraction]99 % Mark Choi Other [employer] Other 03-14-2022 11:15-0400Body .64 cmSherif Ramez Other [facility] Other 03-14-2022 11:15-0400Body mass index (BMI) [Ratio]2.19 kg/x9JgmimdMark Choi Other [facility] Other 03-14-2022 11:15-0400Body weight6.17 kgSheverton Choi Other [facility] Other 03-14-2022 11:15-0400Diastolic blood srtqowbn93 mm[Hg] Mark Choi Other [facility] Other 03-14-2022 11:15-3027SyR1% (BldA) [Mass fraction]99 % Mark Choi Other [facility] Other 03-14-2022 11:15-0400Systolic blood wvbeplrq854 mm[Hg] Mark Medeirosky Other [facility] Other 02-24-2022 11:45-0500Body .64 cmPeggy Jackman Other [employer] Other 02-24-2022 11:45-0500Body mass index (BMI) [Ratio] 34.59 kg/f9Kouzw Jackman Other [facility] Other 02-24-2022 11:45-0500Body awkizi46.21 kgPeggy Jackman Other [employer] Other 02-24-2022 11:45-0500Diastolic blood mm[Hg] Arely Jackman Other [employer] Other 02-24-2022 11:45-0500Respiratory rate18 /minPeggy Jackman Other [employer] Other 02-24-2022 11:45-8955YfS5% (BldA) [Mass fraction]98 % Arely Jackman Other [employer] Other 02-24-2022 11:45-0500Systolic blood dtljewxl698 mm[Hg] Arely Jackman Other [employer] Other 02-10-2022 11:30-0500Body cfnkwu360.64 cmPeggy Jackman Other [facility] Other 02-10-2022 11:30-0500Body mass index (BMI) [Ratio] 34.76 kg/v2Hmyuz Jackman Other [employer] Other 02-10-2022 11:30-0500Body cylclz94.71 kgPeggy Jackman Other [facility] Other 02-10-2022 11:30-0500Diastolic blood swaybzpp28 mm[Hg] Arely Jackman Other [employer] Other 02-10-2022 11:30-0500Respiratory rate18 /minPeggy Jackman Other [facility] Other 02-10-2022 11:30-6291TwR6% (BldA) [Mass fraction]98 % Arely Jackman Other [employer] Other 02-10-2022 11:30-0500Systolic blood nojqwbqy311 mm[Hg] Arely Jackman Other [employer] Other 01-19-2022 15:00-0500Body hjtipt387.64 cmDaniyaz Garcia Other [facility] Other 01-19-2022 15:00-0500Body mass index (BMI) [Ratio] 34.38 kg/q7Iepkpq Jose Other [facility] Other 01-19-2022 15:00-0500Body rqilue71.62 kgDaniyaz Garcia Other [employer] Other 12-07-2021 14:00-0500Body aphgnj566.64 cmAndra Salomon Other [employer] Other 12-07-2021 14:00-0500Body mass index (BMI) [Ratio] 34.38 kg/j7Whdeb Salomon Other [facility] Other 12-07-2021 14:00-0500Body ajxzjn75.62 kgAndra Salomon Other [facility] Other 12-07-2021 14:00-0500Diastolic blood odbseuck25 mm[Hg] Dorinara Briscoez Other [employer] Other 12-07-2021 14:00-0500Systolic blood pufupegj868 mm[Hg] Dornia Salomon Other [employer] Other 10-22-2021 13:15-0400Body knreyl152.64 cmStushar Choi Other [facility] Other 10-22-2021 13:15-0400Body mass index (BMI) [Ratio] 33.89 kg/c7Ipaeel Zaky Other [employer] Other 10-22-2021 13:15-0400Body hscuez03.26 kgSheriasa Choi Other [employer] Other 10-22-2021 13:15-0400Diastolic blood lxynfxsc86 mm[Hg] Mark Choi Other [employer] Other 10-22-2021 13:15-0400Systolic blood pnxespfr269 mm[Hg] Mark Choi Other [employer] Other 09-27-2021 16:30-0400Body txnoao667.64 cmSherandrés Ramez Other [employer] Other 09-27-2021 16:30-0400Body mass index (BMI) [Ratio] 34.31 kg/l5Xzhdyt Zaky Other [employer] Other 09-27-2021 16:30-0400Body weqxsi69.44 kgAlessandraasa Choi Other [facility] [employer] Other 09-27-2021 16:30-0400Diastolic blood ctpxchro28 mm[Hg] Mark Choi Other [facility] [employer] Other 09-27-2021 16:30-2007CsA6% (BldA) [Mass fraction]99 % Mark Choi Other [facility] [employer] Other 09-27-2021 16:30-0400Systolic blood pmxbaqgz255 mm[Hg] Mark Choi Other [facility] [employer] Other Encounters Encounter DateEncounter TypeCare ProviderFacilityStart: 79-22-4532fscgtcflqp Deniz Lubin FoxFacility:[facility]: 04-25-2024 End: 64-21-9722yenhmdgqsySndw ProviderFacility:[facility]: 10-16-2023 End: 03-34-9776Uamyxxqma department patient visitAlexalisa Aparicio [facility]23 End: 71-43-8820Zphbkfvuw department patient visitLEE ANN-Erin Thomas Work Phone: [facility] Work Phone: Start: 10-15-2023 End: 41-07-5146hnuzcvoqkqDvokuetlaUniversity Hospitals [facility]hu[facility] Work Phone: Start: 10-15-2023 End: 82-14-1039Azcplgp encounter procedureCare[facility] Work Phone: Start: 07-12-2023 End: 80-88-9978ifpbfejvixRwqssf Zaky Other [facility] [employer] Other Start: 31-22-6297Wfduoil encounter procedureSherif ZakyFPG Pain ManagementStart: 06-05-2023 End: 60-12-6201ooretyatvfRbldc Jackman Other [facility] [employer] Other Start: 63-76-5447Knyjft outpatient visit 15 minutes Arely HartFPG Pain Management [place]Start: 03-22-2023 End: 96-75-4987gusotgrckiZchuex Ramez Other [facility] [employer] Other Start: 81-41-6900Cmagndr encounter procedureSherif ZakyFPG Pain ManagementStart: 02-20-2023 End: 06-62-4218ndsmrrggkzXnbed Jackman Other [facility] [employer] Other Start: 80-28-4486Uevqvo outpatient visit 15 minutes Arely HartFPG Pain ManagementStart: 12-20-2022 End: 25-11-3484synrrxjlmpMzkoz Jackman Other [employer] Other Start: 57-87-7055Nbiros outpatient visit 15 minutes Arely HartFPG Pain ManagementStart: 12-14-2022 End: 53-45-3306kfylkwocztIotaav Ramez Other [facility] [employer] Other Start: 48-48-8442Vywsfbz encounter procedureSherif ZakyFPG Pain ManagementStart: 12-06-2022(PROC) PROCEDURESherif [facility] OutPtStart: 12-06-2022 End: 52-76-4352euxlnuyczeRweoos Sue CramerFacility:[facility] Hospital[facility]art: 12-06-2022 End: 27-30-8044Bbmlblxab to same day surgery centerNITZA Thomas Work Phone: [facility] Work Phone: Start: 12-06-2022 End: 97-11-8121mbekvosfyqDS-C Tiki Keren William Work Phone: [facility] Work Phone: Start: 11-30-2022 End: 49-42-0495ihasrrbpxeLNGED MUSTAPHAUniversity [facility] Hospitaltart: 11-13-2022 End: 21-37-4859vrxbdglmovKQOYB PARKERFacility:Q2Uqjti: 11-09-2022 End: 41-72-7533zsmgkmhpixFIUMJM CRAMERFacility:Y0Rslfj: 11-02-2022 End: 80-98-5615kpwixlnktjIKLQY PARKERFacility:B9Uyexl: 10-16-2022 End: 55-73-1026ehnzqkqgdkGnkksz Ramez Other [facility] Other Start: 96-53-1189Szvojb outpatient visit 25 minutes Mark ZakyFPG Pain ManagementStart: 09-14-2022 End: 23-35-0014lzihhqwsilZkslti Ramez Other [facility] Other Start: 75-54-3224Oggirhg encounter procedureSherif ZakyFPG Pain ManagementStart: 09-12-2022 End: 82-82-0781llirmwhbxkHGXTQX CRAMERFacility:E9Myvco: 99-13-4392pnorsmwksy TIKI CRAMERFacility:P7Llcwb: 08-24-2022 End: 52-65-1741plxninrabpGayqlb Ramez Other [facility] Other Start: 66-98-5832Poxxwws encounter procedureSherif ZakyFPG Pain ManagementStart: 08-01-2022 End: 86-16-5840ntvvxywfwiVnnsgi Ramez Other [facility] Other Start: 70-65-9753Jmdkrf outpatient visit 25 minutes Mark RamezFPG Pain ManagementStart: 07-20-2022 End: 29-58-1360pclkespdkgPX DIMPLE S VELARDE .Facility:H5Pkwub: 07-07-2022 End: 48-59-9487vcezmhmhfzTREAC SABBAGHFacility:M8Scvyw: 05-30-2022 End: 75-11-2849maqapagwilFP DIMPLE S VELARDE .Facility:M7Cpism: 05-24-2022 End: 40-39-3237zihhforwtlHfrymi Ramez Other [facility] Other Start: 47-55-3123Xlnmbk-up encounterSherif ZavivianFPG Pain ManagementStart: 05-22-2022 End: 55-99-3092zdjtreztbbTYIPOQ CRAMERFacility:P1Xpmfj: 05-02-2022 End: 38-74-3375lnnvemxngpOsgks Jackman Other [facility] Other Start: 88-53-4139Dwofyp outpatient visit 15 minutes Arely HartFPG Pain ManagementStart: 76-18-6271jnhgymuwuaJBPQBN CRAMERFacility:H1 Start: 04-04-2022 End: 29-10-2246xlhrlsefxrXCBMYA CRAMERFacility:X3Dclkq: 02-15-2022 End: 19-75-0729gbksdmneekQUJBVS TANI .Facility:D4Wfols: 02-03-2022 End: 68-92-9304kqfksfqtliDjlaan Ramez Other [facility] Other Start: 41-69-4422Kxvsxz outpatient visit 15 minutes Mark RamezFPG Pain ManagementStart: 01-11-2022 End: 26-96-4699mhotbbbnxnStiefq Ramez Other [facility] Other start: 25-10-9960Rqiowdk encounter procedureSherif ZakyFPG Pain ManagementStart: 01-05-2022 End: 21-88-3848nthnbybyljVXGOXN ZAKYFacility:W1Otgim: 12-26-2021 End: 16-38-3806pejfrcuoasKfaxmp Ramez Other [facility] [employer] Other Start: 78-11-2537Dwyuzw outpatient visit 25 minutes Mark ZakyFPG Pain ManagementStart: 11-24-2021 End: 95-38-3192xgcqpesqqvYlfqyr Ramez Other [facility] [employer] Other Start: 10-58-0572Xhxaycr encounter procedureSherif ZakyFPG Pain ManagementStart: 11-11-2021 End: 95-35-2917qugivuemnuFoxleg Ramez Other [facility] [employer] Other Start: 68-46-8701Mfqnrm outpatient visit 15 minutes Mark ZakyFPG Pain ManagementStart: 10-20-2021 End: 75-78-4660iacgivesfhSmyyk Jackman Other [facility] [employer] Other Start: 95-17-8356Kuygfb outpatient visit 15 minutes Arely HartFPG Pain ManagementStart: 10-18-2021 End: 75-42-6260jvjwkojeceKwiyfl Devi Other [facility] [employer] Other Start: 62-82-9316Uiapdi outpatient visit 15 minutes Tiki QuinonezFPG Urgent Care ClydeStart: 09-28-2021(Procedure) Shad Choi [facility] OutPtStart: 09-28-2021 End: 66-41-7386bdrvyfxianIlaykp Ramez Other [facility] [employer] Other start: 09-14-2021 End: 89-22-1081xncqoqyjnaAhapoo Ramez Other [employer] Other Start: 30-97-1755Kemlqu outpatient visit 25 minutes Mark ZakyFPG Pain ManagementStart: 09-07-2021(Procedure) Shad Choi [facility] OutPtStart: 09-07-2021 End: 06-50-2639usdycswnjpNszbfv Ramez Other [employer] Other Start: 08-29-2021 End: 24-22-0151afspsxktulXgcwxd Ramez Other [employer] Other Start: 09-79-6366Jqefdkm encounter procedureSherif ZakyFPG Pain ManagementStart: 08-11-2021 End: 90-53-1018puoohqarudPaerb Jackman Other [employer] Other Start: 50-76-1601Xdzzve outpatient visit 25 minutes Arely HartFPG Pain ManagementStart: 07-28-2021 End: 64-26-3542lyzygmmlqaVxerm Jackman Other [employer] Other Start: 84-16-0883Ixdvfk outpatient visit 15 minutes Arely HartFPG Pain ManagementStart: 07-13-2021(Procedure) Shad Choi [facility] OutPtStart: 07-13-2021 End: 05-07-8812fudqxyuyaeWzuflb Ramez Other [employer] Other Start: 07-12-2021 End: 33-40-9183bvtapkjzcjYnimdl Ramez Other [facility] Other Start: 26-76-3087Gqdpovgcz encounterSherif ZakyFPG Pain ManagementStart: 07-06-2021 End: 45-21-7320ixqfvdfwvaCkxoes Elskens Other [facility] [employer] Other start: 07-65-6760Gedvjg outpatient visit 15 minutes Kevin JoseFPG Neurosurgery BellevueStart: 06-06-2021 End: 89-43-0623mvetlcxdyjTtofsp Ramez Other [facility] [employer] Other Start: 78-98-1096Ncqaqj-up encounterSherif ZakyFPG Pain ManagementStart: 05-24-2021 End: 10-74-0064nhztbuierbGvoat Salomon Other [facility] [employer] Other Start: 77-81-3376Dzzmlg outpatient visit 15 minutes Dorina SalomonFPG Pain ManagementStart: 10-45-7330Dzxusg outpatient visit 25 minutesSherif ZakyFPG Pain Management [place]walkStart: 74-38-7322Jsjeln outpatient visit 15 minutesSherif ZakyFPG Pain ManagementStart: 11-30-2020 End: 88-56-2811rqzhxsgwkvEEGEQGVVI MUSTAPHAFacility:[facility]MCStart: 04-26-2020 End: 10-50-5868kptqdtkjxlRDMZUOUNM MUSTAPHAFacility:UTMCStart: 11-13-2017 Emergency department patient [facility]PR[facility]ER [facility]: 61-22-1585ZixogsyupaZZDLMPOR [facility]: 05-28-2017 AmbulatoryPROVIDER [facility]art: 05-22-2017 End: 76-78-2143RuavvgpwygRSFZFJES [facility]: 05-02-2017 AmbulatoryPROVIDER [facility]art: 04-32-7786YtrnzldusbLDQLOYZW [facility]: 89-35-7125Lthfglesz department patient visit [facility]: 68-57-0277ZptlunifcxHSZTNRQI [facility] SystemStart: 68-15-9423SgiztnngqqScrnCHI St[facility] Start: 22-78-0247IxicfsdjnxZQPDJXTI [facility] SystemStart: 12-12-2016 [facility] SystemStart: 12-08-2016 End: 82-02-2696IhmuuocutvXUSQQB A [facility]AM[facility] HospitalStart: 12-07-2016 AmbulatoryLev[facility] SystemStart: 91-36-2841VhupklraddDHDPRF PETRILLAFacility:[facility] Procedures DateProcedureProcedure DetailPerforming ClinicianStart: 25-67-9436Tmvsyekh tomography of abdomen and pelvis with contrastLEE ANN-C Tiki Thomas Work Phone: Start: 02-32-3971DP scan of gallbladderNP-Erin Thomas Work Phone: Start: 30-21-4284Klbpjbozmhxajv destruction of peripheral nerveLEE ANN-Erin Thomas Work Phone: Start: 38-81-9524YORIEX ARM/LEG NERVEABDULAZIM MUSTAPHAStart: 69-10-0743AFFOPG LOWER ARM SURGERYABDULAZIM MUSTAPHAStart: 58-66-6699HRVVTV WRIST/FOREARM LESIONABDULAZIM BONNIE Plan of Treatment DateCare ActivityDetailAuthorStart: 68-78-7384ZdlmfvhxeOhiohealth Doctors Hospital Start: 85-08-2860bciazxdlfsNxbreqnowaCvhzsrbv:S0Mrehjjp EducationUniversity [facility]als [facility]tr Work Phone: Patient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 AUTHOR'S ORGANIZ ATION 10/12/2024 [facility] REASON FOR VISIT (unrecogniz ed section and [...] to office today due to transportation issues, [employer] platform used for virtual visitbotox for migraine relief2 1/2 month f/u for Botox, Patient consents to be evaluated and treated via telemedicine, risks benefits and alternatives explained., Patient at home virtually seen from office.BOTOX FOR MIGRAINE CONTROL Care Teams (unrecognized sec tion and content) Team Status: Active Member Role Status Dates Tiki Thomas NP-C Primary Care Provider Active Team Status: Inactive Member Role Status Dates Tiki Thomas NP-Erin Primary Care Provider Active Rosalba Butler ProviderActive Team Status: Inactive Member Role Status Dates Tiki Thomas NP-Erin Primary Care Provider Active Start: October 15, 2023 End: October 15, 2023Rosalba Butler ProviderActiveStart: October 15, 2023 End: October 15, 2023 Team Status: Inactive Member Role Status Dates Tiki Thomas NP-Erin Primary Care Provider Active Start: October 16, 2023 End: October 15Sy De La Fuente ProviderActiveStart: October 16, 2023 End: October 16, 2023 [...] BE BASED ON THE PRIMARY CLINICAL RECORDS. [facility]. provides no warranty or guarantee of the accuracy or completeness of information in this document.
[2025-05-18] MEDS: 0.9 % SODIUM CHLORIDE 500 ML IV (08:12)
[2025-05-18] MEDS: DEXAMETHASONE SOD PHOS 10 MG/ML VIAL INJ (08:35)
[2025-05-18] MEDS: 0.9 % SODIUM CHLORIDE 10 ML SYRINGE - SALINE FLUSH 5 ML INJ (08:35)
[2025-05-18] MEDS: IOHEXOL 240 MG/ML - 50 ML VIAL 24 MG INJ (08:35)
[2025-05-18] MEDS: BUPIVACAINE HCL 0.25% PF 25 MG/10 ML VIAL 4 ML INJ (08:35)
[2025-05-18] MEDS: LIDOCAINE HCL 2% 400 MG/20 ML MDV INJ (08:36)
--- NOTE | 2025-05-18 08:39 | P.ON_ITS ---
Date of procedure: 05/18/25 Pre-op diagnosis: G90.512 Post-op diagnosis: same as pre-op Procedure: Procedure: left stellate ganglion nerve block Medications: Bupivacaine 0.25% 4cc, normal saline 0.9% 5cc, dexamethasone 10mg The patient was seen and examined in the preoperative holding areas where the site was marked.? A written informed consent was obtained and placed on the chart.? The patient was brought to the medical procedures unit and placed in the supine position.? The area overlying the left anterolateral vertebral body of the C6 vertebral element was identified under fluoroscopic guidance.? The area was prepped and draped in usual sterile fashion.? Strict aseptic technique was used throughout.? The C-arm was rotated obliquely until the intervertebral foramen were well-visualized. Lidocaine 1% was used to anesthetize the skin overlying the base of the C7 uncinate process. A 25-gauge 3-1/2 inch Quincke tipped spinal needle was advanced to the above mentioned target point under AP fluoroscopic guidance.? Then Omnipaque dye was injected and verified that no v ascular uptake was seen.? Then the above-mentioned aliquot was delivered in 1 mL boluses.? The needle was removed.? The needle insertion site was covered.? The patient tolerated the procedure well and was found suitable for discharge in the company of a responsible adult. Anesthesia: MAC Surgeon: Richard Berger Pathology: none sent Condition: stable Disposition: no change
[2025-05-18 08:42] VITALS: BP 112/75; PULSE 93; TEMP 37.1; O2SAT 100
[2025-05-18 08:45] VITALS: BP 108/74; PULSE 95; TEMP 37.1; O2SAT 100
== END 2025-05-18 09:03 | disposition home or self-care (01) ==
PROVIDERS: PCP Nurse Practitioner Family; Visit Provider Anesthesiology
DX: G90.512 Complex regional pain syndrome I of left upper limb (principal)
CPT/HCPCS: 64510; J0665; J1100; J2704; Q9966

== ENCOUNTER 2025-05-28 15:17 | Outpatient (OUT) | payer OTHER, SELFPAY ==
--- OUTSIDE RECORDS SUMMARY | 2025-05-28 15:22 | XMS_ITS | CCD ---
Author Organization [facility] Care Team Providers Care Manager Digital Name Role Phone Turowski, Mani Unavailable Unavailable [...] ABDULAZIM Attending Unavailable BONNIE, ABDULAZIM Surgeon Unavailable BONNEI, ABDULAZIM Admitting Unavailable JULIUS, MIRIAM Primary Care Unavailable JULIUS, MIRIAM Referring Unavailable CO Procedure Practitioner Unavailab le BONNIE, ABDULAZIM Attending Unavailable BONNIE, ABDULAZIM Surgeon Unavailable BONNIE, ABDULAZIM Admitting Unavailable JULIUS, MIRIAM Referring Unavailable JULIUS, MIRIAM Primary Care Unavailable CO Procedure Practitioner Unavailab salvador Choi, Mark Unavailable [...] Melend[employer] Consulting Unavailable VELARDE ., DR DIMPLE eMlendrez Attending Unavailable WILLIAM, TIKI Primary Care Unavailable [...] Care Provider MD Mark Choi Attending Provider NITZA Thomas Primary Care Provider DO Oh Aparicio Emergency Provider [phone] William Tikithania Veliz Primary Care Unavailable Mark [...] OnsetReaction(s) FacilityPenicillins (antibiotic) (1 source)Penicillin; Translations: [PENICILLIN]Drug Yezstyk70-95-5736Cjs [facility] Repository (20 sources)Bee/Wasp/Ant venomPropensity to adverse reactionslocalized reaction [facility] DoseMe Other (20 sources)PenicillinDrug AllergyhivesNortHaven Behavioral [facility] DoseMe Other (5 sources)Penicillins; Translations: [PENICILLINS]Drug allergy (disorder) 74-33-5321OfzimXojGreen Cross Hospital Repository (4 sources)BEE VENOM PROTEIN (HONEY BEE); Translations: [BEE VENOM PROTEIN (HONEY BEE)]Propensity to adverse reactions to drug (disorder)03-09-2015 localized [facility]UnC[facility] Repository (1 source)PenicillinsDrug allergy (disorder)30-49-8567LsrqobgsiSt. [facility] Rep[facility] Medications Current Medications MedicationDrug Class(es)DatesSig (Normalized)Sig (Original)amphetamine aspartate 3.75 mg / amphetamine sulfate 3.75 mg / dextroamphetamine saccharate 3.75 mg / dextroamphetamine sulfate 3.75 mg oral tablet (1 source)Central Nervous System StimulantStart: 58-68-2316fhmy 15 mg by mouth once dailyDextroamphetamine-Amphetamine Active 15 MG PO Daily October 16, 2023 12:00am24 hr desvenlafaxine succinate 25 mg extended release oral tablet (1 source)Serotonin and Norepinephrine Reuptake InhibitorStart: 02-95-9114idwq 25 mg by mouth once dailyDesvenlafaxine Succinate Active 25 MG PO Daily October 16, 2023 12:00ammetoprolol tartrate 25 mg oral tablet (20 sources)beta-Adrenergic BlockerStart: 17-63-9781xegq 25 mg by mouth twice dailyMetoprolol Tartrate Active 25 MG PO Twice daily July 13, 2021 1:00am take 1 tablet by mouth every twelve hoursLopressor 50 MG 1 tablet with food Orally Twice a day ActiveMultivitamin preparation (3 sources)Start: 06-41-9621vxik 1 tablet by mouth once dailyMultivitamin Active 1 TAB PO Daily July 13, 2021 1:00amondansetron 4 mg oral tablet (8 sources)Serotonin-3 Receptor AntagonistStart: 83-32-5858xbsj 4 mg by mouth every six hoursOndansetron Active 4 MG PO Q6H 14 October 16, 2023 12:00amStart: 18-66-2302xafb 4 mg by mouth once dailyOndansetron Hcl Active 4 MG PO Daily October 16, 2023 12:00amStart: 01-18-2020 End: 34-49-3020Jthcnleluxe Discontinued 4 MG PO every 6 to 8 hours 10 January 18, 2020 12:00am January 19, 2020 3:47pmpredniSONE 20 mg oral tablet (2 sources)predniSONE 20 MG 1 tablet Orally bid for 4 days, then once daily for 8 days Activerimegepant 75 mg disintegrating oral tablet (1 source)Start: 81-51-2591ghmy 1 tablet by mouth once dailyRimegepant (Nurtec Odt) 75 mg tablet,disintegrating Active 75 MG PO Daily October 16, 2023 12:00am Semaglutide (Ozempic) 2 mg/dose (8 mg/3 mL) pen injector (1 source)Start: 27-92-8608imkztk 2 mg by subcutaneous injection every week [...] needed Orally Twice a day ActiveThyroid (Pork) (Edna Thyroid) 90 mg tablet (1 source)Start: 14-61-6592ddeo 1 tablet by mouth once dailyThyroid (Pork) (Edna Thyroid) 90 mg tablet Active 90 MG PO Daily December 06, 2022 12:00am thyroid (prison) 90 mg oral tablet (2 sources)Start: 32-88-4113nmfs 1 tablet by mouth once dailyThyroid (Pork) (Edna Thyroid) 90 mg tablet Active 90 MG PO Daily December 06, 2022 12:00am Completed/Discontinued Medications MedicationDrug Class(es)DatesSig (Normalized)Sig (Original)acetaminophen 325 mg / HYDROcodone bitartrate 5 mg oral tablet (3 sources)Opioid AgonistStart: 01-18-2020 End: 03-84-2079oanf 1 tablet by mouth every four to six hoursHydrocodone- Acetaminophen ([place]) 5-325 mg Tablet Discontinued 1 TAB PO EVERY 4-6 HOURS 7 3 January 18, 2020 July 13, 2021 11:53amBotulinum Toxin Type A (20 sources)Acetylcholine Release InhibitorStart: 59-02-4504Kskbv Mar, 10 mLStart: 56-68-8127Gnoku Nov, 155 unitsStart: 79-69-4246Kxssm Nov, 155 UStart: 65-90-2645Opqvh Aug, 10 mLStart: 59-60-3711Zsjjy Nov, 10 mL24 hr buPROPion hydrochloride 150 mg extended release oral tablet (3 sources)AminoketoneStart: 01-19-2020 End: 27-95-6907qqaq 1 tablet by mouth once dailyBupropion Hcl (Wellbutrin Xl) 150 mg tablet extended release 24 hr Discontinued 150 MG PO Daily January 19, 2020 12:00am July 13, 2021 11:53amcephalexin 500 mg oral capsule (20 sources)Cephalosporin Antibacterialtake 2 capsules by mouth every twelve hoursCephalexin 500 MG 2 cap(s) Orally bid Not-Taking/PRNcetirizine hydrochloride 10 mg oral tablet (20 sources)Histamine-1 Receptor AntagonistStart: 09-28-2021 End: 55-85-0983alwe 1 tablet by mouth once dailyCetirizine (Zyrtec) 10 mg Tablet Discontinued 10 MG PO Daily September 28, 2021 12:00am October 16, 2023 12:13pm citalopram 10 mg oral tablet (3 sources)Serotonin Reuptake InhibitorStart: 01-19-2020 End: 86-57-6650cxik 1 tablet by mouth once dailyCitalopram (Celexa) 10 mg tablet Discontinued 10 MG PO Daily January 19, 2020 12:00am June 11:53am doxycycline hyclate 100 mg oral capsule (3 sources)Tetracycline-class DrugStart: 09-07-2021 End: 19-85-8898xybw 100 mg by mouth once dailyDoxycycline Hyclate Discontinued 100 MG PO Daily September 07, 2021 12:00am December 06, 2022 9:35amescitalopram 20 mg oral tablet (3 sources)Serotonin Reuptake InhibitorStart: 07-13-2021 End: 28-22-7484gqfn 1 tablet by mouth once dailyEscitalopram Oxalate (Lexapro) 20 mg Tablet Discontinued 20 MG PO Daily July 13, 2021 1:00am July 13, 2021 11:59amfexofenadine hydrochloride 180 mg oral tablet (3 sources)Histamine-1 Receptor AntagonistStart: 09-28-2021 End: 84-98-2594zeyk 1 tablet by mouth once dailyFexofenadine (Lorena Allergy) 180 mg Tablet Discontinued 180 MG PO Daily September 28, 2021 12:00am December 06, 2022 9:35amibuprofen 800 mg oral tablet (3 sources)Nonsteroidal Anti-inflammatory DrugStart: 07-02-2018 End: 78-46-8985ovka 800 mg by mouth three times dailyIbuprofen Discontinued 800 MG PO Three times daily July 02, 2018 1:00am January 15, 2020 8:18am levonorgestrel 0.484356 mg/hr intrauterine system (3 sources)Progestin, Progestin-containing Intrauterine DeviceStart: 01-15-2020 End: 05-90-7352Rlvdctxmrihgeo (Anjana) 14 mcg/24 hrs (3 yrs) 13.5 mg Intrauterine Device Discontinued 1 DEVICE INTRAUTERI Once January 15, 2020 12:00am July 13, 2021 11:54ammethylPREDNISolone (20 sources)CorticosteroidStart: 73-98-1595Ditq-Medrol 80 mg Feb, 80 mg phentermine hydrochloride 37.5 mg oral tablet (6 sources)Sympathomimetic Amine AnorecticStart: 09-07-2021 End: 94-48-8377dsgs 1 tablet by mouth once dailyPhentermine (Adipex-P) 37.5 mg tablet Discontinued 37.5 MG PO Daily September 07, 2021 12:00am October 16, 2023 12:17pmStart: 01-15-2020 End: 60-22-8169iywa 1 tablet by mouth once dailyPhentermine (Adipex-P) 37.5 mg Tablet Discontinued 37.5 MG PO Daily January 15, 2020 12:00am 2021 11:54ampromethazine hydrochloride 25 mg oral tablet (6 sources)PhenothiazineStart: 01-16-2020 End: 15-38-7797mxcd 25 mg by mouth every four to six hoursPromethazine Discontinued 25 MG PO EVERY 4-6 HOURS 12 January 16, 2020 12:00am January 19, 2020 3:91rhZDANGWF5 Amitriptyline HCL 2%, Capsaicin 0.025%, Clonidine HCL 0.23%, Gabapentin 6%, Lidocaine HCL 5% (20 sources)Start: 68-44-4876DIOICUV6 Amitriptyline HCL 2%, Capsaicin 0.025%, Clonidine HCL 0.23%, Gabapentin 6%, Lidocaine HCL 5% as directed Topical rub 1-2 grams every 6-8 hours as needed for 30 days Mar, Not-Taking/PRNStart: 67-72-0814LMGDRGN2 Amitriptyline HCL 2%, Capsaicin 0.025%, Clonidine HCL 0.23%, Gabapentin 6%, Lidocaine HCL 5% as directed Topical rub 1-2 grams every 6-8 hours as needed for 30 days Mar, Not-TakingStart: 06-84-5258Wxppi: 66-85-3130CLXBEWN4 Amitriptyline HCL 2%, Capsaicin 0.025%, Clonidine HCL 0.23%, Gabapentin 6%, Lidocaine HCL 5% as directed Topical rub 1-2 grams every 6-8 hours as needed for 30 days Mar, Activetriamcinolone acetonide 40 mg/ml injectable suspension (20 sources)CorticosteroidStart: 27-53-2853Bakfpqu-40 Aug, 60 mgStart: 36-92-6463Hvarwqe -40 mg Dec, 60 mg Problems Active Problems Problem ClassificationProblemDateDocumented DateEpisodic/ChronicAbdominal pain (9 sources)Epigastric pain; Translations: [Unspecified abdominal pain]Onset: 135982-44-9013QgsjafhzZtwixaxspl disorders (20 sources)Adjustment disorder with anxious mood; Translations: [Adjustment disorder with anxiety]ChronicAnxiety disorders (20 sources)Anxiety disorder, unspecified; Translations: [Claustrophobia]Onset: 21-70-9666ZtrqintHrposcnwpfmzk of surgical procedures or medical care (6 sources)Headache following lumbar puncture; Translations: [Other reaction to spinal and lumbar puncture]16-68-0903WstezryoMgdytkfmwn and other anemia (2 sources)Iron deficiency anemia secondary to blood loss (chronic); Translations: [Iron deficiency anemia secondary to blood loss (chronic)]Onset: 69-20-3695UhoctgfQzeqcezprkcdv symptoms and ill-defined conditions (1 source)Personal history of urinary (tract) infections; Translations: [PERS HX URINARY TRACT INFECTIONS]Onset: 37-78-1856VhpduxleTpxakwte, including migraine (20 sources)Migraine, unspecified, not intractable, without status migrainosus; Translations: [Migraine withoutaura, intractable, without status migrainosus] Onset: 02-02-2017 Resolved: 22-69-2480NshhnhdWdtnqnro, including migraine (6 sources)Headache; Translations: [Headache]Onset: 839703-30-5945Ygcifitw Inflammatory diseases of female pelvic organs (4 sources)Acute vaginitis; Translations: [ACUTE VAGINITIS]Onset: 11-13-2022 EpisodicMenstrual disorders (1 source)Excessive and frequent menstruation with irregular cycle; Translations: [Excessive and frequent menstruation with irregular cycle]Onset: 56-23-2866BixeothNkdm disorders (20 sources)Recurrent major depressive episodes, mild ; Translations: [Major depressive disorder, recurrent, mild]ChronicMood disorders (2 sources)Major depressive disorder, single episode, unspecified; Translations: [Major depressive disorder, single episode, unspecified]Onset: 27-19-5899Eclph aftercare (1 source)Other creative assistant (current) drug therapy; Translations: [OTH MCFP CURRENT DRUG THERAPY]Onset: 79-56-5424CcnecruvMkeyx connective tissue disease (20 sources)Extensor tenosynovitis of wrist; Translations: [Other synovitis and tenosynovitis, left hand]EpisodicOther connective tissue disease (20 sources)Radial styloid tenosynovitis; Translations: [Radial styloid tenosynovitis [de Quervain]]EpisodicOther connective tissue disease (10 sources)Myalgia, other siteOnset: 11-11-2021 Resolved: 20-88-9762RprcdlbxUkpbg gastrointestinal disorders (2 sources)Irritable bowel syndrome without diarrhea; Translations: [Irritable bowel syndrome without diarrhea]Onset: 09-68-9189CrtuknhCqprs lower respiratory disease (1 source)Personal history of pneumonia (recurrent); Translations: [PERSONAL HX OF PNEUMONIA RECURRENT]Onset: 87-72-1720FudkjllyHhrvc nervous system disorders (20 sources)Cerebral cyst; Translations: [Cerebral cysts]ChronicOther nervous system disorders (20 sources)Arachnoid cyst; Translations: [Cerebral cysts]ChronicOther nervous system disorders (20 sources)Chronic pain; Translations: [Other chronic pain]10-49-3272Rstaror Other nervous system disorders (20 sources)Other chronic pain; Translations: [Other chronic pain]Onset: 03-14-2021 Resolved: 38-80-1256BwdhzrvBtvmw nervous system disorders (20 sources)Lesion of radial nerve; 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, left upper limb]ChronicOther nervous system disorders (5 sources)Lesion of radial nerve, left upper limb; Translations: [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]Onset: 04-08-2021 Resolved: 70-66-4661SvalbfxEsfek nervous system disorders (1 source)Cerebral cystsOnset: 07-06-2021 Resolved: 54-21-5205ZgczcnpCvkji non-traumatic joint disorders (2 sources)Pain in left elbow; Translations: [Pain in left elbow]Onset: 08-67-8505BafayvprQjhok nutritional; endocrine; and metabolic disorders (7 sources)Obesity; Translations: [Obesity, unspecified]ChronicOther upper respiratory infections (1 source)Acute upper respiratory infection, unspecified; Translations: [ACUTE UP RESPIRATORY INFECTION UNS]Onset: 69-55-2391XyfewxbeLsjayiewitd; intervertebral disc disorders; other back problems (20 sources)Cervical spondylosis; Translations: [Spondylosis without myelopathy or radiculopathy, cervical region]Onset: 06-06-2021 Resolved: 98-35-6428UqcwggzRcascfplpsh; intervertebral disc disorders; other back problems (20 sources)Cervico-occipital neuralgia; Translations: [Occipital neuralgia] Onset: 03-14-2021 Resolved: 96-95-4041RkdvdaceNkbrfai and strains (20 sources)Sprain of left wrist; Translations: [Unspecified sprain of left wrist, initial encounter]Onset: 04-08-2021 Resolved: 80-21-6044XlcnksycFyctvzqvqsdm (2 sources)Family history of familial hypercholesterolemia; Translations: [Family history of familial hypercholesterolemia]Onset: 35-26-7379Eygcotteholk (3 sources)ACUTE COUGH; Translations: [ACUTE COUGH]Onset: 92-89-6882Tlrxhrtafzwf (3 sources)COUGH, UNSPECIFIED; Translations: [COUGH, UNSPECIFIED]Onset: 79-02-8634Avvqqsezkkvc (3 sources)CONTACT W/AND (SUSP) EXPOS COVID-19; Translations: [CONTACT W/AND (SUSP) EXPOS COVID-19]Onset: 05-27-2022 Past or Other Problems Problem ClassificationProblemDateDocumented DateEpisodic/ChronicAllergic reactions (2 sources)Bee allergy status; Translations: [Bee allergy status]Onset: 20-46-4541JmqrosooLxkjkhstkk and other anemia (1 source)Anemia, unspecified; Translations: [ANEMIA UNSPECIFIED]Onset: 83-72-0427BcockxdmTbocs and electrolyte disorders (2 sources)Dehydration; Translations: [Dehydration]Onset: 30-55-0840Xasgyngr Gastritis and duodenitis (3 sources)Gastritis, unspecified, without bleeding; Translations: [Gastritis, unspecified, without bleeding]Onset: 81-75-4172GxmookxwHskwnkmnupcuhtlu hemorrhage (4 sources)Hemorrhage of anus and rectum; Translations: [Hematemesis]Onset: 69-99-8694NbzkpvdhHpglnvtvzmx (2 sources)First degree hemorrhoids; Translations: [First degree hemorrhoids] Onset: 83-49-0595GvvmvdovHcnpmpm and fatigue (1 source)Other fatigue; Translations: [OTHER FATIGUE]Onset: 44-14-3890Nubtybzd Nausea and vomiting (8 sources)Nausea; Translations: [Nausea with vomiting, unspecified]Onset: 27-27-0196UkuplppnEfrohwnlglu chest pain (2 sources)Chest pain, unspecified; Translations: [Chest pain, unspecified] Onset: 31-95-9639FxoxrzyjWihhy and unspecified benign neoplasm (1 source)Benign neoplasm of peripheral nerves and autonomic nervous system, unspecified; Translations: [BENIGN YAW PERIPH NERVES AND ANS UNS]Onset: 69-97-7326ApdothlnCfdiu connective tissue disease (1 source)Other synovitis and tenosynovitis, left hand; Translations: [Extensor tenosynovitis of left wrist M65.842]Onset: 04-08-2021 Resolved: 54-38-9149JnauexavUjcqs connective tissue disease (1 source)Radial styloid tenosynovitis [de Quervain]; Translations: [De Quervain's disease (tenosynovitis) M65.4]Onset: 04-08-2021 Resolved: 52-57-5482KyvzxkkjTzkxx connective tissue disease (1 source)Pain in left handOnset: 10-18-2021 Resolved: 95-64-6097OwmmrtdjUyyml connective tissue disease (4 sources)Other enthesopathies, not elsewhere classified; Translations: [OTHER ENTHESOPATHIES NEC]Onset: 27-99-6198UdiisxlrBmwek connective tissue disease (1 source)Other muscle spasm; Translations: [OTHER MUSCLE SPASM]Onset: 23-22-7111LdjemajmWxdkr disorders of stomach and duodenum (2 sources)Other diseases of stomach and duodenum; Translations: [Other diseases of stomach and duodenum]Onset: 08-70-4130XibhgpfjLlxim gastrointestinal disorders (2 sources)Diarrhea, unspecified; Translations: [Diarrhea, unspecified]Onset: 51-86-5698NffajeveWgmzg nutritional; endocrine; and metabolic disorders (4 sources)Abnormal weight gain; Translations: [ABNORMAL WEIGHT GAIN]Onset: 93-79-5458GjjibbqdMhstx screening for suspected conditions (not mental disorders or infectious disease) (4 sources)Abnormal results of thyroid function studies; Translations: [ABNORMAL RESULTS THR FUNCTION STDY]Onset: 41-59-5987IplypmyoYdcvq upper respiratory disease (1 source)Nasal congestion; Translations: [NASAL CONGESTION]Onset: 05-27-2022 EpisodicResidual codes; unclassified (1 source)Acquired absence of both cervix and uterus; Translations: [ACQUIRED ABSENCE BOTH CERVIX AND UTERUS]Onset: 39-76-8524XeneqscxCjdahfvxrnlm (4 sources)Family history of other mental and behavioral disorders; Translations: [Family history of ischemic heart disease and other diseases of the circulatory system]Onset: 35-53-3092YjhqxhicRdvtzgjfojql (1 source)ACUTE COUGH; Translations: [ACUTE COUGH]Onset: 36-17-9752Ujeiooevlzeo (1 source)COUGH, UNSPECIFIED; Translations: [COUGH, UNSPECIFIED]Onset: 02-11-0975Qhpskwfgdjrj (1 source)CONTACT W/AND (SUSP) EXPOS COVID-19; Translations: [CONTACT W/AND (SUSP) EXPOS COVID-19]Onset: 05-22-2022 Results Test NameValueInterpretationReference RangeFacilityEmpye Health Noteon 59-86-2432Egxkgdjl Health Note [id number]#1.00[facility] Employee Health [id number]#1.00[facility] [id number]#1.00[facility] Employee Health [id number]#1.00[facility] Health Note [id number]#1.00[facility] Employee Health [id number]#1.00[facility] Health Note [id number]#1.00[facility] Employee Health [id number]#1.00[facility] Health Note [id number]#1.00[facility] Employee Health [id number]#1.00[facility] Health Note [id number]#1.00[facility] Coding Summaryon 50-44-9390Xnhlnz SummaryHTMLBase 64 TilbwgmmREx5qYf+PGhlYWQ+WJ8GMRKjH27oaMJshE7oT5AEUNfPElvoKWPRNUyCBrTmhkRhJA8abEGd ZXJu [file] YXB (more content not included)...[facility] HospitalC[facility] Summaryon 85-26-4895Umjlch SummaryHTMLBase 64 KwgdkdxcKMz3qKw+PGhlYWQ+FF8JAEMgU05uwCVbaR4aF2RINTiWZadtXJQVMRoSOaOgruQzTJ8kkZLn ZXJu [file] YXB (more content not included)...[facility] Summaryon 43-91-7588SE [facility] [address], [place] [id number] Clinical Summary PERSON INFORMATION Name: TORREY GAYLE Age: 33 Years Sex: FEMALE : 1990 MRN: Acct#: Visit Reason: Medical screening exam; [facility] F/U - LEFT ARM INJURY Arrival: 04/25/2024 16:23:07 Discharge: 04/25/2024 17:25:00 LOS: 000 01:02 Check In: 04/25/2024 16:23:07 Checkout: 04/25/2024 17:25:00 Address: [address] [place] [address] PCP: Provider, None PROVIDER INFORMATION Provider Role [...] - Patient/family/caregiver verbalizes understanding of instructions given Comment:[facility] Patient Summaryon 82-76-0061JU Patient Summary [facility] ? Urgent Care [address], [place] [id number] PATIENT DISCHARGE INSTRUCTIONS Patient Information Name: TORREY [...] and treatment you received today in the [facility] Emergency Department were for an urgent problem and are not intended as complete care. It is important for you to follow up with a doctor, nurse practitioner, or physician?s physiotherapist's assistant for ongoing care. If your symptoms [...] can reach you if necessary. [facility] Emergency Department has provided you with a complete list of medications post discharge. Please inform your cap and stud machine operator/provider of your visit and for further [...] Left wrist sprain (S63.502A) Medical screening exam ([id number]) Other synovitis and tenosynovitis, left hand (M65.842) [...] legal documents Reason for Visit: Medical exam- [facility] -to establish with new POR, initial injury [...] adults) NO Whooping Cou (more content not included)...[facility] Note- Provideron 96-89-1156Qlhsqs Care Note- ProviderPatient: TORREY GAYLE Age: 33 years Sex: FEMALE : 1990 Associated Diagnoses: Disorder of left radial nerve; Cellulitis of left upper limb; De Quervain's tenosynovitis, left; Other synovitis and tenosynovitis, left hand; Lateral epicondylitis of left elbow; Left wrist sprain Author: Deniz Okeefe PA-C History of Present Illness OCCUPATIONAL HEALTH FOLLOW-UP Date of injury: 04/07/2019 Claim #: [id number] Employer: [employer] Mechanism of Injury: Turning a patient and [...] record is no longer practicing at the [facility]. 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 She was referred to Dr. Nicole with persisting symptoms. She had injections which were not particularly helpfuland then proceeded to have 2 surgeries. She has now been seeing pain management for the past 2 years in [place]. She has tried PT, creams, injections, medications including OTC Motrin/Tylenol, Lyrica, Neurontin, muscle relaxers and Mobic/Celebrex all without good relief and so she takes no medications for this. She states her most recent testing was a bone scan done on 04/03 in [place] and it was reported as normal. 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 With this she reports elbow pain seems [...] rhonchi or wheeze. EXT (more content not included)...[facility] 62-[facility]-8143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 It is important for you to follow up with a doctor, nurse practitioner, or physician?s physiotherapist's assistant for ongoing care. If your symptoms [...] can reach you if necessary. [facility] has provided you with a complete list of medications post discharge. Please inform your cap and stud machine operator/provider of your visit and for further [...] Centers for Disease Control and Prevention February 2014[facility] Alanine aminotransferase [Enzymatic activity/volume] in Serum or PlasmaOrdered By: Oh Aparicio on 90-40-5020JGV [Catalytic activity/Vol]20 U/L7-52 [facility] CampusAlbumin [Mass/volume] in Serum or Plasma by Bromocresol green (BCG) dye binding methoOrdered By: Oh Aparicio on 36-61-3465Omotcpr BCG dye [Mass/Vol]4.3 g/dL3.5-5.7FOhioHealth Dublin Methodist HospitalAlkaline phosphatase [Enzymatic activity/volume] in Serum or PlasmaOrdered By: Oh Aparicio on 27-84-4741ZRK [Catalytic activity/Vol]54 U/L34-104 [facility] CampusAspartate aminotransferase [Enzymatic activity/volume] in Serum or PlasmaOrdered By: Oh Aparicio on 10-16-2023 AST [Catalytic activity/Vol]17 U/Y31-74ZpcflokurSt. Mary'S Medical Center, [facility] CampusBasic Metabolic Panelon 28-34-4325Eomqp gap [Moles/Vol]12.0 mmol/LNormal6.0-15.0The Unc Health Physician GroupComment on above:Order Comment: waiterPerformed By: #### BMP, LIPASE, SCAN CBC, HEPATIC #### [facility] [address] [place] [address] USACalcium [Mass/Vol]9.4 mg/dLNormal8.6-10.3The Unc Health Physician GroupComment on above:Order Comment: waiterPerformed By: #### BMP, LIPASE, SCAN CBC, HEPATIC #### [facility] [address] [place] [address] USAChloride [Moles/Vol]103 mmol/HJevikn69-645Uce Firelands Physician GroupComment on above:Order Comment: waiterPerformed By: #### BMP, LIPASE, SCAN CBC, HEPATIC #### [facility] [address] [place] [address] USACO2 [Moles/Vol]30.1 mmol/VJkupki32.0-31.0The Unc Health Physician GroupComment on above:Order Comment: waiterPerformed By: #### BMP, LIPASE, SCAN CBC, HEPATIC #### [facility] [address] [place] [address] USACreatinine [Mass/Vol]0.67 mg/dLNormal0.60-1.20The Unc Health Physician GroupComment on above:Order Comment: waiterPerformed By: #### BMP, LIPASE, SCAN CBC, HEPATIC #### [facility] [address] [place] [address] USACreatinine Clr Calc Jccswsim387.48NormalThe Unc Health Physician GroupComment on above:Order Comment: waiterPerformed By: #### BMP, LIPASE, SCAN CBC, HEPATIC #### [facility] [address] [place] [address] USAGFR/1.73 sq M.predicted MDRD (S/P/Bld) [Vol rate/Area] mL/min/{1.73_m2}NormalThe Unc Health Physician GroupComment on above:Order Comment: waiterPerformed By: #### BMP, LIPASE, SCAN CBC, HEPATIC #### [facility] [address] [place] [id number] USAGlucose [Mass/Vol]75 mg/wNHstlqp94-673Sfh Un[facility] Health Physician GroupComment on above:Order Comment: waiterResult Comment: Random Glucose Reference Range is dependent on time and content of last meal. Glucose of more than 200 mg/dL in a nonstressed, ambulatory subject supports the diagnosis of Diabetes Mellitus. ADA recommended reference rangePerformed By: #### BMP, LIPASE, SCAN CBC, HEPATIC #### [facility] [address] [place] [address] USAPotassium [Moles/Vol]4.1 mmol/LNormal3.5-5.1The Unc Health Physician GroupComment on above:Order Comment: waiterPerformed By: #### BMP, LIPASE, SCAN CBC, HEPATIC #### [facility] [address] [place] [address] USASodium [Moles/Vol]141 mmol/NGewqhc388-282Mpi [facility] Health Physician GroupComment on above:Order Comment: waiterPerformed By: #### BMP, LIPASE, SCAN CBC, HEPATIC #### [facility] [address] [place] [address] USAUrea nitrogen [Mass/Vol]8 mg/dLNormal7-25The Unc Health Physician GroupComment on above:Order Comment: waiterPerformed By: #### BMP, LIPASE, SCAN CBC, HEPATIC #### [facility] [address] [place] [address] USABasophils Auto (Bld) [#/Vol]Ordered By: Oh Aparicio on 71-88-6598Psdjhwnon (Bld) [#/Vol]0.0 10*3/uL0.0-0.2FOhioHealth Dublin Methodist HospitalBasophils/100 WBC Auto (Bld)Ordered By: Oh Aparicio on 10-16-2023 Basophils/100 WBC (Bld)0.3 %.[facility] CampusBilirubin Test strip Ql (U)Ordered By: Oh Aparicio on 13-20-4338Ruxikmdlf Ql (U)Negative NegativeSt. Mary'S Medical Center, [place] CampusBilirubin.direct [Mass/volume] in Serum or PlasmaOrdered By: Oh Aparicio on 93-04-9330Johkenqsm.direct [Mass/Vol] 0.10 mg/dL0.03-0.18FOhioHealth Dublin Methodist HospitalBilirubin.total [Mass/volume] in Serum or PlasmaOrdered By: Oh Aparicio on 10-16-2023 Bilirubin [Mass/Vol]0.4 mg/dL0.3-1.0[facility] CampusCT abdomen pelvis w conon 92-53-4282UV abdomen pelvis w [facility] [address] [place] [address] CT Scan Report Signed Patient: Torrey Antony MR#: [id number] : 1990 Acct:[id number] Age/Sex: 32 / F ADM Date: 10/16/23 Loc: ER Room: Type: [facility] ER Attending Dr: Copies to: Oh [...] Anastasia Nunez M.D.10/16/2023 2:09 PM Dictation Location: [place] [address] Transcribed By: DIANA 10/16/23 1409 Dictated By: Anastasia Nunez MD 10/16/23 1355 Signed By: 10/16/23 1409[facility] Physician GroupCalcium [Mass/volume] in Serum or PlasmaOrdered By: Oh Aparicio on 01-71-6278Cxbyuty [Mass/Vol]9.4 mg/dL 8.6-10.3FOhioHealth Dublin Methodist HospitalCarbon dioxide, total [Moles/volume] in Serum or PlasmaOrdered By: Oh Aparicio on 02-80-3259LE5 [Moles/Vol]30.1 mmol/L21.0-31.0[facility] CampusChloride [Moles/volume] in Serum or PlasmaOrdered By: Oh Aparicio 42-69-7523Kiupvccq [Moles/Vol]103 mmol/V51-243GfebholqySt. Mary'S Medical Center, [place] CampusColor Auto (U)Ordered By: Oh Aparicio on 46-65-7565Riqzz (U)YellowYellowSt. Mary'S Medical Center, [facility] Campus Creatinine [Mass/volume] in Serum or PlasmaOrdered By: Oh Aparicio 48-71-7737Mbnnfmwajl [Mass/Vol]0.67 mg/dL0.60-1.20[facility] CampusEosinophils Auto (Bld) [#/Vol]Ordered By: Oh Aparicio on 10-16-2023 Eosinophils (Bld) [#/Vol]0.2 10*3/uL0.0-0.45[facility] Eosinophils/100 WBC Auto (Bld)Ordered By: Oh Aparicio on 10-16-2023 Eosinophils/100 WBC (Bld)2.5 %.[facility] CampusErythrocyte distribution width Auto (RBC) [Ratio]Ordered By: Oh Aparicio on 10-16-2023 Erythrocyte distribution width (RBC) [Ratio]13.7 %11.9-15.3FOhioHealth Dublin Methodist HospitalGlobulin Calc (S) [Mass/Vol]Ordered By: Oh Aparicio 48-99-5957Arzczjth (S) [Mass/Vol]2.3 g/dLSt. Mary'S Medical Center, [facility] Campus Glucose [Mass/volume] in Serum or PlasmaOrdered By: Oh Aparicio on 00-69-7796Dkzufni [Mass/Vol]75 mg/wF92-618IpplkmqlbSt. Mary'S [facility] Campus Comment on above:ADA recommended reference rangeRandom Glucose Reference Range is dependent on time and content of last meal. Glucose of more than 200 mg/dL in a nonstressed, ambulatory subject supports the diagnosisof Diabetes Mellitus. HCG ( test) IA.rapid Ql (U)Ordered By: Oh Aparicio on 10-16-2023 HCG ( test) Ql (U)NegativeSt. Mary'S Medical Center, [facility] CampusHCG,Urineon 44-01-1725Ingd HCG ( test) Ql (U)NegativeNormalThe Unc Health Physician GroupComment on above:Order Comment: Name Collection Type:: VoidedResult Comment: PERFORMED BY: [place] [address] PATHOLOGIST PUBLISHING SPECIALIST TAZ DALY M.D.Performed By: #### UHCG, UA #### [place] [address] USAHematocrit Auto (Bld) [Volume fraction]Ordered By: Oh Aparicio on 34-31-9100Icpgfazauz (Bld) [Volume fraction]40.4 %34.0-46.4 [facility] CampusHemoglobin [Mass/volume] in BloodOrdered By: Oh Aparicio on 10-80-9433Tbxcdwrpqo (Bld) [Mass/Vol]13.7 g/dL11.8-15.4 [facility] CampusHepatic Panelon 66-73-1524Wrsljks [Mass/Vol]4.3 g/dLNormal3.5-5.7The Unc Health Physician GroupComment on above:Order Comment: waiterPerformed By: #### BMP, LIPASE, SCAN CBC, HEPATIC #### [facility] [address] [place] [id number] USAAlbumin/Globulin [Mass ratio]1.9 {ratio}NormalThe Unc Health Physician GroupComment on above:Order Comment: waiterPerformed By: #### BMP, LIPASE, SCAN CBC, HEPATIC #### [place] [address] USAALP [Catalytic activity/Vol]54 U/YKwllii01-595Eiz Unc Health Physician GroupComment on above:Order Comment: waiterPerformed By: #### BMP, LIPASE, SCAN CBC, HEPATIC #### [place] [address] USAALT [Catalytic activity/Vol]20 U/LNormal7-52The Unc Health Physician GroupComment on above:Order Comment: waiterPerformed By: #### BMP, LIPASE, SCAN CBC, HEPATIC #### [place] [address] USAAST [Catalytic activity/Vol]17 U/SKkvrnj50-77Qky Un[facility] Health Physician GroupComment on above:Order Comment: waiterPerformed By: #### BMP, LIPASE, SCAN CBC, HEPATIC #### [place] [address] USABilirubin [Mass/Vol]0.4 mg/dLNormal0.3-1.0The Unc Health Physician GroupComment on above:Order Comment: waiterPerformed By: #### BMP, LIPASE, SCAN CBC, HEPATIC #### [place] [address] USABilirubin,Indirect0.3 mg/dLNormAdventHealth Daytona Beach Physician GroupComment on above:Order Comment: waiterPerformed By: #### BMP, LIPASE, SCAN CBC, HEPATIC #### [place] [address] USABilirubin.indirect [Mass/Vol]0.10 mg/dLNormal0.03-0.18The Un[facility] Health Physician GroupComment on above:Order Comment: waiterPerformed By: #### BMP, LIPASE, SCAN CBC, HEPATIC #### [place] [address] USAGlobulin (S) [Mass/Vol]2.3 g/dLNormFairfield Medical Centere Unc Health Physician GroupComment on above:Order Comment: waiterPerformed By: #### BMP, LIPASE, SCAN CBC, HEPATIC #### [place] [address] USAProtein [Mass/Vol]6.6 g/dLNormal6.4-8.9The Un[facility] Health Physician GroupComment on above:Order Comment: waiterPerformed By: #### BMP, LIPASE, SCAN CBC, HEPATIC #### [facility] [address] [place] [address] USAKetones Auto test strip (U) [Mass/Vol]Ordered By: Oh Aparicio on 43-95-6106Wfpvxxe (U) [Mass/Vol]NegativeNegativeSt. Mary'S Medical Center, [facility] CampusLeukocytes [#/volume] corrected for nucleated erythrocytes in Blood by Automated counOrdered By: Oh Aparicio on 02-47-3550WJW corrected for nucl RBC Auto (Bld) [#/Vol]6.3 10*3/uL3.8-11.6 [facility] CampusLipaseon 14-96-1154Xwxhmh [Catalytic activity/Vol]7.0 U/LLow11.0-82.0The Unc Health Physician GroupComment on above: Order Comment: waiterResult Comment: PERFORMED BY: [place] [address] PATHOLOGIST PUBLISHING SPECIALIST TAZ DALY M.D.Performed By: #### BMP, LIPASE, SCAN CBC, HEPATIC #### [facility] [address] [place] [address] USALipase [Enzymatic activity/volume] in Serum or Plasma Ordered By: Oh Aparicio on 81-35-2294Jsjayr [Catalytic activity/Vol]7.0 U/L11.0-82.0[facility] CampusLymphocytes Auto (Bld) [#/Vol] Ordered By: Oh Aparicio on 16-20-6937Hjsltfzmate (Bld) [#/Vol]2.2 10*3/uL 1.00-4.8[facility] CampusLymphocytes/100 WBC Auto (Bld)Ordered By: Oh Aparicio on 21-11-2267Rkieepyosbz/100 WBC (Bld)34.2 %.[facility] CampusMCH Auto (RBC) [Entitic mass]Ordered By: Oh Aparicio on 09-10-9320EBY (RBC) [Entitic mass]31.0 pg24.7-34.3FOhioHealth Dublin Methodist HospitalMCHC Auto (RBC) [Mass/Vol]Ordered By: Oh Aparicio on 37-52-1800USRG (RBC) [Mass/Vol]33.9 g/dL32.0-35.0[facility] CampusMCV Auto (RBC) [Entitic vol]Ordered By: Oh Aparicio on 44-16-9385QHY (RBC) [Entitic vol]91.5 eR07-286VuilqxzcrSt. Mary'S Medical Center, [place] CampusMonocyte distribution width [Entitic volume] in Blood by AutomatedOrdered By: Oh Aparicio on 64-58-1537Ifalewcm distribution width Auto (Bld) [Entitic vol]17.06 % 0.00-20.00[facility] CampusMonocytes Auto (Bld) [#/Vol]Ordered By: Oh Aparicio on 34-29-4920Ghdluapsv (Bld) [#/Vol]0.4 10*3/uL0.0-0.8 [facility] CampusMonocytes/100 WBC Auto (Bld)Ordered By: Oh Aparicio on 68-73-3316Ydyawbxoa/100 WBC (Bld)5.9 %.[facility] CampusNeutrophils Auto (Bld) [#/Vol]Ordered By: Oh Aparicio on 09-89-7307Mkylegfwzfo (Bld) [#/Vol]3.6 10*3/uL1.8-7.7FOhioHealth Dublin Methodist HospitalNeutrophils/100 WBC Auto (Bld)Ordered By: Oh Aparicio on 10-16-2023 Neutrophils/100 WBC (Bld)57.1 %.[facility] CampusNitrite Test strip Ql (U)Ordered By: Oh Aparicio on 71-27-0685Qbrxrxr Ql (U)Negative NegativeSt. Mary'S Medical Center, [facility] CampusNo Panel InformationOrdered By: Oh Aparicio on 80-93-6131Azdzbmneu GFR (CKD-EPI)> 60.0 mL/MinSt. Mary'S Medical Center, Iront[facility] CampusPharmacy Creatinine Clearance (Jhrt390.48[facility]. [facility] CampusNucleated erythrocytes [Presence] in Blood by Automated countOrdered By: Oh Aparicio on 06-23-6902Hfkrciscq RBC Auto Ql (Bld)0.2 /100{WBC}0-0.5FOhioHealth Dublin Methodist HospitalPlatelet adequacy [Presence] in Blood by Light microscopyOrdered By: Oh Aparicio on 63-86-0027Qsldpyeaf LM Ql (Bld)NormalNormalSt. Mary'S Medical Center, [facility] CampusPlatelet mean volume Auto (Bld) [Entitic vol]Ordered By: Oh Aparicio on 95-61-0833Dzjdfboj mean volume (Bld) [Entitic vol]11.6 fL6.3-10.7FOhioHealth Dublin Methodist Hospital Platelet morphology finding [Identifier] in BloodOrdered By: Oh Aparicio on 99-91-4686Evppeqfi morphology finding Nom (Bld)N/AFOhioHealth Dublin Methodist HospitalPlatelets Auto (Bld) [#/Vol]Ordered By: Oh Aparicio on 10-16-2023 Platelets (Bld) [#/Vol]174 10*3/bH226-244FatwqoftzSt. Mary'S [facility] Platelets Large [Presence] in Blood by Light microscopyOrdered By: Oh Aparicio on 69-42-6724Vyijpfzep Large LM Ql (Bld)SlightSt. Mary'S Medical Center, Ironton CampusPotassium [Moles/volume] in Serum or PlasmaOrdered By: Oh Aparicio on 12-75-4659Ydtyfmuly [Moles/Vol]4.1 mmol/L3.5-5.1FOhioHealth Dublin Methodist HospitalProtein Auto test strip (U) [Mass/Vol]Ordered By: Oh Aparicio on 02-60-6544Nbjcrdd (U) [Mass/Vol]NegativeNegativeSt. Mary'S Medical Center, [facility] CampusProtein [Mass/volume] in Serum or PlasmaOrdered By: Oh Aparicio on 02-27-2043Sfvfacn [Mass/Vol]6.6 g/dL6.4-8.9[facility] CampusRBC Auto (Bld) [#/Vol]Ordered By: Oh Aparicio on 83-59-5125BSY (Bld) [#/Vol] 4.42 10*6/uL3.60-5.00[facility] CampusRBC morphologyOrdered By: Oh Aparicio on 74-64-0301KKF morphology finding Nom (Bld)NormalNormal [facility] Ohiocan and CBCon 70-37-3954Fcixkpius (Bld) [#/Vol]0.0 10*3/uLNormal0.0-0.2The Unc Health Physician GroupComment on above: Order Comment: waiterPerformed By: #### BMP, LIPASE, SCAN CBC, HEPATIC #### [place] [address] USABasophils/100 WBC (Bld)0.3 %Normal.The Unc Health Physician GroupComment on above:Order Comment: waiterPerformed By: #### BMP, LIPASE, SCAN CBC, HEPATIC #### [place] [address] USAEosinophils (Bld) [#/Vol]0.2 10*3/uLNormal0.0-0.45The Unc Health Physician GroupComment on above:Order Comment: waiterPerformed By: #### BMP, LIPASE, SCAN CBC, HEPATIC #### [place] [address] USAEosinophils/100 WBC (Bld)2.5 %Normal.The Unc Health Physician GroupComment on above:Order Comment: waiterPerformed By: #### BMP, LIPASE, SCAN CBC, HEPATIC #### [place] [address] USAErythrocyte distribution width (RBC) [Ratio]13.7 %Normal 11.9-15.3The Unc Health Physician GroupComment on above:Order Comment: backbreaker Performed By: #### BMP, LIPASE, SCAN CBC, HEPATIC #### [place] [address] USAHematocrit (Bld) [Volume fraction]40.4 %Avszme00.0-46.4The Unc Health Physician GroupComment on above:Order Comment: waiterPerformed By: #### BMP, LIPASE, SCAN CBC, HEPATIC #### [place] [address] USAHemoglobin (Bld) [Mass/Vol]13.7 g/fDGipvmu43.8-15.4The Unc Health Physician GroupComment on above:Order Comment: waiterPerformed By: #### BMP, LIPASE, SCAN CBC, HEPATIC #### [place] [address] USALarge PlateletsSlightNormalThe [facility]c Health Physician Group Comment on above:Order Comment: waiterResult Comment: PERFORMED BY: [place] [address] PATHOLOGIST PUBLISHING SPECIALIST TAZ DALY M.D.Performed By: #### BMP, LIPASE, SCAN CBC, HEPATIC #### [place] [address] USALymphocytes (Bld) [#/Vol]2.2 10*3/uLNormal1.00-4.8The [facility] Health Physician GroupComment on above:Order Comment: waiterPerformed By: #### BMP, LIPASE, SCAN CBC, HEPATIC #### [place] [address] USALymphocytes/100 WBC (Bld)34.2 %Normal.The Unc Health Physician GroupComment on above:Order Comment: waiterPerformed By: #### BMP, LIPASE, SCAN CBC, HEPATIC #### [address]H (RBC) [Entitic mass]31.0 cgXjpmnu19.7-34.3The Unc Health Physician GroupComment on above:Order Comment: waiterPerformed By: #### BMP, LIPASE, SCAN CBC, HEPATIC #### [address]V (RBC) [Entitic vol]91.5 vBDxazfh75-600Wmz [facility] Health Physician GroupComment on above:Order Comment: waiterPerformed By: #### BMP, LIPASE, SCAN CBC, HEPATIC #### [place] [address] USAMean Corpuscular HGB Conc33.9 g/uFZerlze31.0-35.0The [facility] Health Physician GroupComment on above:Order Comment: waiterPerformed By: #### BMP, LIPASE, SCAN CBC, HEPATIC #### [place] [address] USAMonocytes (Bld) [#/Vol]0.4 10*3/uLNormal0.0-0.8The [facility] Health Physician GroupComment on above:Order Comment: waiterPerformed By: #### BMP, LIPASE, SCAN CBC, HEPATIC #### [facility] [address] [place] [address] USAMonocytes/100 WBC (Bld)17.06 %Normal0.00-20.00The [facility] Health Physician GroupComment on above:Order Comment: waiterPerformed By: #### BMP, LIPASE, SCAN CBC, HEPATIC #### [facility] [address] [place] [address] USAMonocytes/100 WBC (Bld)5.9 %Normal.The [facility] Health Physician GroupComment on above:Order Comment: waiterPerformed By: #### BMP, LIPASE, SCAN CBC, HEPATIC #### [place] [address] USANeutrophils (Bld) [#/Vol]3.6 10*3/uLNormal1.8-7.7The [facility] Health Physician GroupComment on above:Order Comment: waiterPerformed By: #### BMP, LIPASE, SCAN CBC, HEPATIC #### [facility] [address] [place] [address] USANeutrophils/100 WBC (Bld)57.1 %Normal.The Un[facility] Health Physician GroupComment on above:Order Comment: waiterPerformed By: #### BMP, LIPASE, SCAN CBC, HEPATIC #### [facility] [address] [place] [address] USANRBC%0.2 /100{WBC}Normal0-0.5The [facility] Comment on above:Order Comment: waiterPerformed By: #### BMP, LIPASE, SCAN CBC, HEPATIC #### [facility] [address] [place] [address] USAPlatelet EstimateNormalNormalNormalThe Unc Health Physician GroupComment on above:Order Comment: waiterPerformed By: #### BMP, LIPASE, SCAN CBC, HEPATIC #### [address] [address] USAPlatelet mean volume (Bld) [Entitic vol]11.6 fLHigh 6.3-10.7The [facility]c Health Physician GroupComment on above:Order Comment: backbreaker Performed By: #### BMP, LIPASE, SCAN CBC, HEPATIC #### [facility] [address] [place] [address] USAPlatelets (Bld) [#/Vol]174 10*3/pKIqgkkn995-858Ycc [facility] Health Physician GroupComment on above:Order Comment: waiterPerformed By: #### BMP, LIPASE, SCAN CBC, HEPATIC #### [facility] [address] [place] [address] USARBC (Bld) [#/Vol]4.42 10*6/uLNormal3.60-5.00The [facility] Health Physician GroupComment on above:Order Comment: waiterPerformed By: #### BMP, LIPASE, SCAN CBC, HEPATIC #### [facility] [address] [place] [address] USARBC morphology finding Nom (Bld)NormalNormalNormalThe Unc Health Physician GroupComment on above:Order Comment: waiterPerformed By: #### BMP, LIPASE, SCAN CBC, HEPATIC #### [facility] [address] [place] [address] USAWBC (Bld) [#/Vol]6.3 10*3/uLNormal3.8-11.6The [facility] Health Physician GroupComment on above:Order Comment: waiterPerformed By: #### BMP, LIPASE, SCAN CBC, HEPATIC #### [facility] [address] [place] [address] USASerum or plasma albumin/globulin mass ratioOrdered By: Oh Aparicio on 96-63-5191Mzwdxts/Globulin [Mass ratio]1.9 {ratio}[facility] Ohioerum or plasma anion gap determinationOrdered By: Oh Aparicio on 16-90-4346Jveyc gap [Moles/Vol]12.0 mmol/L6.0-15.0[facility] Ohioerum or plasma non-glucuronidated bilirubin measurement (mass/volume)Ordered By: Oh Aparicio on 15-18-5132Rwatmyqrx.indirect [Mass/Vol]0.3 mg/dLSelect Medical Specialty Hospital - Southeast Ohioodium [Moles/volume] in Serum or PlasmaOrdered By: Oh Aparicio on 11-31-4979Xnnsim [Moles/Vol]141 mmol/Y989-723DeqqhkjsvSelect Medical Specialty Hospital - Southeast Ohiopecific gravity Auto test strip (U) [Rel density]Ordered By: Oh Aparicio on 88-10-6861Csarrhtl gravity (U) [Rel density]1.0061.001-1.030[facility] CampusUS gall bladderon 21-26-3587QK gall bladderTHE [place] [address] Ultrasound Report Signed Patient: Torrey Antony MR#: [id number] : 1990 Acct:[id number] Age/Sex: 32 / F ADM Date: 10/16/23 Loc: ER Room: Type: [facility] ER Attending Dr: Ordering Provider: Oh [...] Anastasia Nunez M.D.10/16/2023 1:27 PM Dictation Location: [place] [address] Tech: Katharina Burger Transcribed By: DIANA 10/16/23 1327 Dictated By: Anastasia Nunez MD 10/16/23 1325 Signed By: 10/16/23 1327[facility]oral Physician GroupUrea nitrogen [Mass/volume] in Serum or PlasmaOrdered By: Oh Aparicio on 99-48-6396Wyza nitrogen [Mass/Vol]8 mg/dL7-25[facility] CampusUrinalysison 10-16-2023 Appearance (U)ClearNormalClearThe Unc Health Physician GroupComment on above: Order Comment: Name Collection Type:: VoidedPerformed By: #### UHCG, UA #### [facility] [address] [place] [address] USABilirubin,UrineNegativeNormalNegativeThe Unc Health Physician GroupComment on above:Order Comment: Name Collection Type:: Voided Performed By: #### UHCG, UA #### [address] [address] USAColor (U)YellowNormalYellowNch Healthcare System [facility] Downtown Naples Physician Group Comment on above:Order Comment: Name Collection Type:: VoidedPerformed By: #### UHCG, UA #### [address] [address] USAGlucose Ql (U)NormalNormalNormalThe Unc Health Physician GroupComment on above:Order Comment: Name Collection Type:: VoidedPerformed By: #### UHCG, UA #### [address] [address] USAKetones Ql (U)NegativeNormalNegativeNch Healthcare System - [facility] [place] Physician GroupComment on above:Order Comment: Name Collection Type:: Voided Performed By: #### UHCG, UA #### [facility] [address] [place] [address] USALeukocyte esterase Test strip Ql (U)NegativeNormalNegative [facility] [place] Physician GroupComment on above:Order Comment: Name Collection Type:: VoidedPerformed By: #### UHCG, UA #### [facility] [address] [place] [address] USANitrite,UrineNegativeNormalNegativeThe Unc Health Physician GroupComment on above:Order Comment: Name Collection Type:: VoidedPerformed By: #### UHCG, UA #### [address] [address] USAOccult Blood,UrineNegativeNormalNegativeThe Unc Health Physician GroupComment on above:Order Comment: Name Collection Type:: Voided Performed By: #### UHCG, UA #### [facility] [address] [place] [address] USApH (U)7.0 [pH]Normal5.0-9.0The [facility] Comment on above:Order Comment: Name Collection Type:: VoidedPerformed By: #### UHCG, UA #### [facility] [address] [place] [id number] USAProtein,UrineNegativeNormalNegativeThe Unc Health Physician GroupComment on above:Order Comment: Name Collection Type:: VoidedPerformed By: #### UHCG, UA #### [place] [address] USASpecificy Liverpool,Urine1.275Xmmtwx9.001-1.030The [facility] Health Physician GroupComment on above:Order Comment: Name Collection Type:: Voided Performed By: #### UHCG, UA #### [place] [address] USAUrobilinogen,UrineNormalNormalNormalThe Unc Health Physician GroupComment on above:Order Comment: Name Collection Type:: Voided Performed By: #### UHCG, UA #### [place] [address] USAUrine clarity by refractometry automatedOrdered By: Oh Aparicio on 78-44-3794Meeeugc Refractometry automated (U)ClearClear [facility] CampusUrine glucose measurement by automated test strip (mass/volume)Ordered By: Oh Aparicio on 03-87-1316Knnfryu Auto test strip (U) [Mass/Vol]Normal mg/dLNormalSt. Mary'S Medical Center, [facility]onton CampusUrine hemoglobin detection by automated test stripOrdered By: Oh Aparicio on 50-50-8649Ihdgessnoz Auto test strip Ql (U)NegativeNegTrumbull Regional Medical CenterUrine leukocyte esterase detection by automated test stripOrdered By: Oh Aparicio on 06-13-6049Qnhihbvdt esterase Auto test strip Ql (U) NegativeNegTrumbull Regional Medical CenterUrobilinogen Auto test strip (U) [Mass/Vol]Ordered By: Oh Aparicio on 91-73-5976Fpvfcgfqgphm (U) [Mass/Vol]Normal mg/dLNoOur Lady of Mercy Hospital - AndersonWBC Auto (Bld) [#/Vol]Ordered By: Oh Aparicio on 77-39-2431AOJ (Bld) [#/Vol]6.3 10*3/uL 3.8-11.6FOhioHealth Dublin Methodist HospitalpH Auto test strip (U)Ordered By: Oh Aparicio on 80-32-9242uY (U)7.0 [pH]5.0-9.0[facility] CampusOffice Visiton 43-85-7269Gjxdtx-up [id number] Torrey Antony 1990 F Date Provider Department Center 11/30/2022 [facility] POE [facility] MPORTHO Family History Problem Relation Age of Onset No Known Problems Mother Hypertension Father Hyperlipidemia Father Family Status - Relation Status Age at Mother Alive Father Alive Level of Service:83960 CO OFFICE/OUTPATIENT ESTABLISHED LOW MDM 20-29 MIN Reason for Visit and Comments: Pain [136]NormalUnCleveland ClinicXR CHEST 2 Von 17-57-7046YZ CHEST 2 VXR CHEST 2 V COMPARISON: October 2022 chest x-ray CLINICAL HISTORY: Cough TECHNIQUE: 2 views FINDINGS: There is a normal cardiac and mediastinal contour. The pulmonary vascular pattern is normal. The lungs are clear and the pleural margins are sharp. There are no significant skeletal abnormalities. IMPRESSION: NO ACUTE RADIOGRAPHIC FINDINGS. Electronically authenticated by: HAN ARNOLD Date: 2022-11-09 17:20[facility] HospitalXR CHEST 1 Von 10-85-4951JA CHEST 1 VEXAMINATION: XR CHEST 1 V HISTORY: Cough and congestion COMPARISON: X-rays 02/15/2022 TECHNIQUE: Portable chest FINDINGS: The lung parenchyma is free of consolidation or infiltrate. No pneumothorax or pleural effusion. The cardiac, mediastinal and hilar contours are normal. The visualized osseous structures exhibit no gross abnormality. IMPRESSION: No acute cardiopulmonary abnormality. Electronically authenticated by: MAURO NUNEZ Date: 2022-11-02 20:46NoBlanchard Valley Health System Bluffton HospitalTHYROID ANTIBODIESon 55-06-4438Fiyqnikjvwibo Antibody<1.0Normal 0.0-0.9The Mark HospitalComment on above:Result Comment: Thyroglobulin Antibody measured by Global [employer] Source MethodologyPerformed By: #### THYRABS #### [facility] [address] [place] [address] Dr. Rigo SandsThyroid Peroxidase (TPO) Ab<5Bmltlu3-93ZpeSelect Medical Specialty Hospital - [facility] Comment on above:Performed By: #### THYRABS #### [facility] [address] [place] [address] Dr. Rigo Arceo THYROIDon 51-39-7753NI THYROIDEXAMINATION: US THYROID HISTORY: Thyroid function tests [...] authenticated by: MAURO POSADAS Date: 2022-07-10 06:33NormalThe [facility] HospitalFREE T3on 34-39-5424IQCP T32.99 pg/mlLNormal2.18-3.98The [facility] HospitalComment on above:Performed By: #### TSH, FT3 #### [facility] [address] [place] [address] Dr. Rigo Martinez T4on 54-11-2821Qstu T4 [Mass/Vol]0.64 ng/dLCritically low 0.76-1.46The [facility] HospitalComment on above:Performed By: #### FT4 #### [facility] [address] [place] [address] Dr. Rigo Harmon 63-10-4558VEF5.764 uIU/mLNormal0.358-3.740The [facility] City HospitalComment on above:Performed By: #### TSH, FT3 #### [facility] [address] [place] [address] Dr. Rigo SandsCovid-19 PCR (CVDTB)on 83-10-0419OYLO-CoV-2 (COVID-19) RNA OK+probe Ql (Unsp spec)Not detectedNormalNOT DETECTEDThe [facility] Comment on above:Result Comment: When diagnostic [...] for this test is supported by the [place] of Health and Human Service's declaration that [...] longer be used).Performed By: #### CVDTBH #### [facility] [address] [place] [address] Dr. Rigo Tracey AUTO DIFFon 92-08-7710GNKJ #0.0 103/ulNormal0.0-0.1The [facility] HospitalComment on above:Performed By: #### CBC ####[facility] [address] [address]Dr.Rigo SandsBasophils/100 WBC (Bld)0.3 %Normal0.2-2.0The [facility] City HospitalComment on above:Performed By: #### CBC ####[facility] [address] [address]Dr.Hilarylan ChangEO #0.1 103/ulNormal0.0-0.7The [facility] HospitalComment on above:Performed By: #### CBC ####[facility] [address] [address]Dr.Hilarylan ChangEosinophils/100 WBC (Bld)0.8 %Critically low0.9-7.0The [facility] HospitalComment on above:Performed By: #### CBC ####[facility] Acxlaiwsg[address] [place], [place] [address]Dr. Hilarylan ChangErythrocyte distribution width (RBC) [Ratio]13.2 %Opfssx81.0-15.0The [facility] HospitalComment on above:Performed By: #### CBC ####[facility] Ooljipmsto[address] [place], [place] [address]Dr.Yilan ChangHematocrit (Bld) [Volume fraction]42.0 %Vdiujz24.0-48.0The [facility] HospitalComment on above:Performed By: #### CBC ####[facility] Ejkpktwdem[address] [place], [place] [address]Dr.Rigo ChangHemoglobin (Bld) [Mass/Vol]13.8 g/dL Knwyji15.0-16.0The [facility] HospitalComment on above:Performed By: #### CBC ####[facility] Vefkgeectn[address] [place], [place] [address]Dr. Yilan ChangIG #0.04 10e3/ulCritically high0.00-0.03The [facility] HospitalComment on above:Performed By: #### CBC ####[facility] Xxkwvyoowj[address] [place], [place] [address]Dr.Yilan ChangIG %0.5 %Normal0.0-0.5The [facility] HospitalComment on above:Performed By: #### CBC ####[facility] [address]eaygnzfml[address] [place], [place] [address]Dr.Yilan ChangLYMPH #1.9 103/ulNormal1.2-3.8The [facility] HospitalComment on above:Performed By: #### CBC ####[facility] Cdmlelulbz[address] [place], [place] [address]Dr. Yilan ChangLymphocytes/100 WBC (Bld)25.5 %Kzamdv43.5-60.0The [facility] Comment on above:Performed By: #### CBC ####[facility] [address] [address]Dr.Rigo SandsMANUAL DIFF REQNONormalThe [facility] HospitalComment on above:Performed By: #### CBC ####[facility] [address] [address]Dr.Hilarygilma SandsH (RBC) [Entitic mass]30.4 dcVtqpmp00.7-34.0The [facility] HospitalComment on above: Performed By: #### CBC ####[facility] [address] [address]Dr.Rigo SandsHC (RBC) [Mass/Vol]32.9 g/dLNormal 29.9-35.2The [facility] HospitalComment on above:Performed By: #### CBC ####[facility] Qejelvjmte[address] [place], [place] [address]Dr. Rigo SandsV (RBC) [Entitic vol]92.5 pEUlzotg65.0-99.0[facility] Comment on above:Performed By: #### CBC ####[facility] Udfodaswet[address] [place], [place] [address]Dr.Rigo SandsMONO #0.5 103/ulNormal0.3-0.8 The [facility] HospitalComment on above:Performed By: #### CBC ####[facility] Eiqrmbomxr[address] [place], [place] [address]Dr.iRgo Sands Monocytes/100 WBC (Bld)6.0 %Normal1.7-12.0The [facility] HospitalComment on above: Performed By: #### CBC ####[facility] Dahravsqxo[address] [place], [place] [address]Dr.Rigo SandsNEUT #5.0 103/ulNormal1.4-6.5The [facility] HospitalComment on above:Performed By: #### CBC ####[facility] Ieyvtlegal[address] [place], [place] [address]Dr.Rigo SandsNeutrophils/100 WBC (Bld)66.9 %Fympym59.0-75.0[facility] Hospital - CincinnatiComment on above:Performed By: #### CBC ####[facility] Xbekzwrfcp[address] [place], [place] [address]Dr.Rigo SandsPlatelet mean volume (Bld) [Entitic vol]12.7 fLNormal9.5-13.5 The [facility] HospitalComment on above:Performed By: #### CBC ####[facility] Ayqoziluyz[address] [place], [place] [address]Dr.Rigo SandsPLT196 103/vrYumemd642-546Miz [facility] HospitalComment on above:Performed By: #### CBC ####[facility] Wapqobjsgi0[address] [place], [place] [address]Dr. Rigo SandsRBC4.54 106/ulNormal4.20-5.40The [facility] HospitalComment on above: Performed By: #### CBC ####[facility] Bbtihiemcn[address] [place], [place] [address]Dr.Rigo SandsWBC7.5 103/ulNormal4.0-11.0The [facility] HospitalComment on above:Performed By: #### CBC ####[facility] Jgmeykeiwa[address] [place], [place] [address]Dr.Rigo SandsIRONon 79-55-7707Swhv [Mass/Vol]65.0 ug/xBYgpgtg61.0-170.0The [facility] HospitalComment on above:Performed By: #### VITAD, IRON, VITB12 ####[facility] Zbqdlrmzuy[address] [place], [place] [address]Dr. Rigo SandsVITAMIN B12on 62-51-3420Sbsxefqww (Vitamin B12) [Mass/Vol]369.0 pg/qLIhevdq426.0-986.0The [facility] HospitalComment on above:Performed By: #### VITAD, IRON, VITB12 ####[facility] Ngpgezdyuu[address] [place], [place] [address]Dr. Hilarygilma SandsVITAMIN D 25 OHon 00-81-3480NTN D 25-OH59.2 ng/mLNormalThe [facility] HospitalComment on above:Performed By: #### VITAD, IRON, VITB12 ####[facility] [address] [address]Dr. Rigo Cerna [place]ES[place] Genesis HospitalComment on above:Result Comment: <20 ng/mL Vit D deficient 20 - <30 ng/mL Vit D insufficient 30 - 100 ng/mL Vit D sufficient >100 ng/mL Potential ToxicityPerformed By: #### VITAD, IRON, VITB12 ####[facility] [address] [address]Dr. Rigo Tovar AUTO DIFFon 98-42-5912QUTB #0.0 103/ulNormal0.0-0.1The [facility] on above:Performed By: #### CBC #### [facility] [address] [place] [address] Dr. Rigo SandsBasophils/100 WBC (Bld)0.2 %Normal0.2-2.0[facility] Comment on above:Performed By: #### CBC #### [facility] [address] [address] [address] Rigo Helton #0.0 103/ulNormal0.0-0.7The [facility] HospitalComment on above: Performed By: #### CBC #### [facility] [address] [address] [address] Rigo Dennyosinophils/100 WBC (Bld)0.1 %Critically low0.9-7.0The [facility] HospitalComment on above:Performed By: #### CBC #### [facility] [address] [address] [address] Rigo Dennyrythrocyte distribution width (RBC) [Ratio]13.5 %Gbcgur78.0-15.0 The [facility] HospitalComment on above:Performed By: #### CBC #### [facility] [address] [address] [address] Rigo SandsHematocrit (Bld) [Volume fraction]40.0 %Dfmhzg59.0-48.0The [facility] HospitalComment on above:Performed By: #### CBC #### [facility] [address] [address] [address] Rigo SandsHemoglobin (Bld) [Mass/Vol]13.4 g/lYNxhdzk43.0-16.0The [facility] HospitalComment on above:Performed By: #### CBC #### [facility] [address] [address] [address] Rigo Nielson #0.04 10e3/ulCritically high0.00-0.03The [facility] Comment on above:Performed By: #### CBC #### [facility] [address] [address] [address] Rigo Nielson %0.4 %Normal0.0-0.5The [facility] HospitalComment on above: Performed By: #### CBC #### [facility] [address] [place] [address] Dr. Rigo Avina #1.6 103/ulNormal1.2-3.8The [facility] HospitalComment on above:Performed By: #### CBC #### [facility] [address] [address] [address] Rigo Shethhocytes/100 WBC (Bld)17.2 %Critically low20.5-60.0The [facility] HospitalComment on above:Performed By: #### CBC #### [facility] [address] [address] [address] Rigo MotaUAL DIFF REQNONormalThe [facility] HospitalComment on above: Performed By: #### CBC #### [facility] [address] [address] [address] Rigo Talamantes (RBC) [Entitic mass]30.7 upTtwbcu07.7-34.0The [facility] HospitalComment on above:Performed By: #### CBC #### [facility] [address] [address] [address] Rigo James (RBC) [Mass/Vol]33.5 g/rQXrcuqw54.9-35.2The [facility] HospitalComment on above:Performed By: #### CBC #### [facility] [address] [address] [address] Rigo JamesV (RBC) [Entitic vol]91.5 qYAkkjgv98.0-99.0The [facility] HospitalComment on above:Performed By: #### CBC #### [facility] [address] [place] [address] Dr. Rigo Pedraza #0.4 103/ulNormal0.3-0.8The [facility] HospitalComment on above:Performed By: #### CBC #### [facility] [address] [place] [address] Dr. Rigo Stallingsocytes/100 WBC (Bld)4.0 %Normal1.7-12.0[facility] Comment on above:Performed By: #### CBC #### [facility] [address] [place] [address] Dr. Rigo Brandt #7.4 103/ulCritically high1.4-6.5The [facility] Comment on above:Performed By: #### CBC #### [facility] [address] [place] [address] Dr. Rigo Corralutrophils/100 WBC (Bld)78.1 %Critically high43.0-75.0The [facility] HospitalComment on above:Performed By: #### CBC #### [facility] [address] [place] [address] Dr. Rigo Lamlet mean volume (Bld) [Entitic vol]12.3 fLNormal9.5-13.5The [facility] HospitalComment on above:Performed By: #### CBC #### [facility] [address] [place] [address] Dr. Rigo SandsPLT199 103/loUjyhbm661-599Jyr [facility] HospitalComment on above: Performed By: #### CBC #### [facility] [address] [place] [address] Dr. Rigo SandsRBC4.37 106/ulNormal4.20-5.40[facility] Municipal Hospitalment on above:Performed By: #### CBC #### [facility] [address] [address] [address] Rigo SandsWBC9.5 103/ulNormal4.0-11.0[facility] - CincinnatiComva medical center on above: Performed By: #### CBC #### [facility] [address] [address] [address] Sierra ChangEGarrick URINE PROFILEon 46-63-3577Fmmkypahy Ql (U)NegativeNormal NEGATIVESelect Medical Specialty Hospital - CincinnatiComment on above:Performed By: #### ERUR ####[facility] [address]chaw[address] [place], [place] [address]Dr. Rigo ChangClarity (U)CLEARNormalCLEARSelect Medical Specialty Hospital - CincinnatiComment on above: Performed By: #### ERUR ####[facility] [address]xsqz[address] [place], [place] [address]Dr. Rigo ChangColor (U)LT. YELLOWNormalYELLOWSelect Medical Specialty Hospital - CincinnatiComment on above:Performed By: #### ERUR ####[facility] [address]bmxcrzh[address] [place], [place] [address]Dr. Rigo ColeDA micrscopic examination will be performed if indicated.NormalThe [facility] HospitalComment on above:Performed By: #### ERUR ####[facility] [address]noc[address] [place], [place] [address]Dr. Rigo ChangGlucose Ql (U) NegativeNormalNEGATIVESelect Medical Specialty Hospital - CincinnatiComment on above:Performed By: #### ERUR ####[facility] [address] [place], [place] [address]Dr. Hilarylan ChangHemoglobin Ql (U)NegativeNormalNEGATIVESelect Medical Specialty Hospital - [facility] Comment on above:Performed By: #### ERUR ####[facility] [address]ftyi[address] [place], [place] [address]Dr. Hilarylan ChangKetones Ql (U)15 mg/dl AbnormalNEGATIVESelect Medical Specialty Hospital - CincinnatiComment on above:Performed By: #### ERUR ####[facility] [address] [address]Dr. Rigo ChangLEUKOCYTESNegativeNormalNEGATIVEThe [facility] HospitalComment on above:Performed By: #### ERUR ####[facility] [address] [place], [place] [address]Dr. Rigo SandsNitrite Ql (U)NegativeNormalNEGATIVEThe [facility] HospitalComment on above:Performed By: #### ERUR ####[facility] [address] [address]Dr. Rigo ChangpH (U)6.0 [pH] Normal5-9The [facility] HospitalComment on above:Performed By: #### ERUR ####[facility] [address]peip[address] [place], [place] [address]Dr. Rigo ChangSPEC GRAVITY<=1.974Sfuhtjhg3.005-<=1.025The [facility] HospitalComment on above:Performed By: #### ERUR ####[facility] [address]an[address] [place], [place] [address]Dr. Hilarygilma ChangUA PROTEINNegativeNormalNEGATIVE/ TRACE The [facility] HospitalComment on above:Performed By: #### ERUR ####[facility] [address]daur[address] [place], [place] [address]Dr. Rigo SandsUR MICRO INDNOT INDICATEDNormalThe [facility] HospitalComment on above:Performed By: #### ERUR ####[facility] [address]sg[address]ithin[address] [place], [place] [address]Dr. Hilarygilma WichoUrobilinogen Qn (U)0.2 {Keegan'U}/dLNormal0.2 - 1.0The [facility] HospitalComment on above:Performed By: #### ERUR ####[facility] [address]sws[address]ugn[address] [place], [place] [address]Dr. Rigo SandsLIPASEon 16-71-8392Gkweyq [Catalytic activity/Vol]50.0 U/LCritically low73.0-393.0The [facility] HospitalComment on above:Performed By: #### CMP, LIPA #### [facility] [address] [address] [address] Rigo SandsPROF 14(COMP METB)on 66-30-1381Wwjmzvv [Mass/Vol]3.8 g/dLNormal 3.4-5.0The [facility] HospitalComment on above:Performed By: #### CMP, LIPA #### [facility] [address] [address] [address] Rigo SandsAlbumin/Globulin [Mass ratio]1.2 {ratio}NormalThe [facility] HospitalComment on above:Performed By: #### CMP, LIPA #### [facility] [address] [address] [address] Rigo VirkP [Catalytic activity/Vol]60 U/LPjdqbd59-845Ivn [facility] HospitalComment on above:Performed By: #### CMP, LIPA #### [facility] [address] [address] [address] Rigo VirkT [Catalytic activity/Vol]36 U/LLsdzyu79-30Vpo [facility] HospitalComment on above:Performed By: #### CMP, LIPA #### [facility] [address] [address] [address] Rigo Lee gap [Moles/Vol]12.0 mmol/LNormalThe [facility] Comment on above:Performed By: #### CMP, LIPA #### [facility] [address] [address] [address] Rigo SandsAST [Catalytic activity/Vol]16 U/RXdvrdg42-79Bba Newark Hospitalment on above:Performed By: #### CMP, LIPA #### [facility] [address] [address] [address] Rigo SandsBilirubin [Mass/Vol]0.3 mg/dLNormal0.2-1.0The [facility] Comment on above:Performed By: #### CMP, LIPA #### [facility] [address] [address] [address] Rigo SandsCalcium [Mass/Vol]8.8 mg/dLNormal8.5-10.1The [facility] Comment on above:Performed By: #### CMP, LIPA #### [facility] [address] [address] [address] Rigo SandsChloride [Moles/Vol]104 mmol/NTwodqa09-887Hlv [facility] Comment on above:Performed By: #### CMP, LIPA #### [facility] [address] [address] [address] Rigo SandsCO2 [Moles/Vol]27.6 mmol/NXacnsm92.0-32.0The [facility] Comment on above:Performed By: #### CMP, LIPA #### [facility] [address] [address] [address] Rigo SandsCreatinine [Mass/Vol]0.78 mg/dLNormal0.55-1.02[facility] - CincinnatiComment on above:Performed By: #### CMP, LIPA #### [facility] [address] [place] [address] Dr. Rigo DennyGFR-AF CUBAN>60Normal>=60The [facility] HospitalComment on above:Performed By: #### CMP, LIPA #### [facility] [address] [place] [address] Dr. Rigo Soto-NON AF CUBAN>60Normal>=60The [facility] HospitalComment on above:Performed By: #### CMP, LIPA #### [facility] [address] [address] [address] Rigo SandsGlobulin (S) [Mass/Vol]3.2 g/dLNormalThe [facility] HospitalComment on above:Performed By: #### CMP, LIPA #### [facility] [address] [place] [address] Dr. Rigo SandsGlucose [Mass/Vol]83 mg/bIDwukww79-215Ndj [facility] Comment on above:Performed By: #### CMP, LIPA #### [facility] [address] [place] [address] Dr. Rigo SandsPotassium [Moles/Vol]3.6 mmol/LNormal3.5-5.1[facility] Comment on above:Performed By: #### CMP, LIPA #### [facility] [address] [address] [address] Rigo SandsProtein [Mass/Vol]7.0 g/dLNormal6.4-8.2[facility] Comment on above:Performed By: #### CMP, LIPA #### [facility] [address] [address] [address] Rigo SandsSodium [Moles/Vol]140 mmol/PAxjtdb289-223Etf [facility] Comment on above:Performed By: #### CMP, LIPA #### [facility] [address] [place] [address] Dr. Rigo SandsUrea nitrogen [Mass/Vol]16.0 mg/dLNormal7.0-18.0[facility] - CincinnatiComment on above:Performed By: #### CMP, LIPA #### [facility] [address] [place] [address] Dr. Rigo Adrian nitrogen/Creatinine [Mass ratio]20.5 mg/mgNoBlanchard Valley Health System Bluffton HospitalComment on above:Performed By: #### CMP, LIPA #### [facility] [address] [place] [address] Dr. Rigo Roach 15-05-5029FMQ Coag (PPP) [Relative time]1.03 {INR} NormalSelect Medical Specialty Hospital - CincinnatiComment on above:Performed By: #### PTT, PT ####[facility] [address] [place], [place] [address]Dr. Rigo Johnson GUIDELINESSEE BELOWOhioHealth Mansfield HospitalComment on above: Result Comment: DESIRED INR: 2.0 - 3.0 CONDITIONS NOT LISTED BELOW 2.5 - 3.5 FOR PROSTHETIC HEART VALVE REPLACEMENT 2.5 - 3.5 RECURRENT THROMBOSISPerformed By: #### PTT, PT ####[facility] [address] [address]Dr. Rigo SandsPT Coag (PPP) [Time]11.1 sNormal9.0-11.6The [facility] HospitalComment on above:Performed By: #### PTT, PT ####[facility] [address] [place], [place] [address]Ma. Rigo Mendoza 43-96-4107hQHV Coag (Bld) [Time]26.8 dMltfdg66.3-36.2The [facility] Comment on above:Performed By: #### PTT, PT ####[facility] [address] [place], [place] [address]Io. Rigo SandsXR ABD FLAT UP_PA Jeannette 53-10-8271CI ABD FLAT UP_PA CHEXAMINATION: XR ABD FLAT UP_PA CH HISTORY: Hematemesis COMPARISON: No relevant comparison available. FINDINGS: LUNGS: No infiltrate, pneumothorax, or pleural effusion. MEDIASTINUM: No abnormal widening. BOWEL GAS PATTERN: Non-obstructed. FREE AIR: None. CALCIFICATIONS: None significant. BONES: No fracture or visible bone lesion. OTHER: Negative. IMPRESSION: Clear lungs Nonobstructive bowel gas pattern Electronically authenticated by: MAURO POSADAS Date: 2022-02-15 14:44[facility] HospitalXR hand LT min 3V*on 83-44-9938XG hand LT min 3V*[facility] DoseMe Other XR hand LT min 3V*[facility] DoseMe Other XR hand LT min 3V*[facility] DoseMe Other XR hand LT min 3V*[place] [address]Y[facility]qsO[facility] DoseMe Other XR hand LT min 3V*[facility] DoseMe Other xr hand LT min 3V*[facility] MedWhat Other XR hand LT min 3V*Patient: Torrey Antony MR#: [id number] MedWhat Other XR hand LT min 3V*[id number] MedWhat Other XR hand LT min 3V*: 1990 Acct:[id number] MedWhat Other XR hand LT min 3V*Age/Sex: 30 / F ADM Date: 10/18/21 [place] MedWhat Other XR hand LT min 3V*Loc: XDUCLY Room: Type: [facility] MedWhat Other XR hand LT min 3V*Attending Dr: Tiki GODDARD [place] MedWhat Other XR hand LT min 3V*Ordering Provider: BROOKLYNN [facility]Cap[facility] MedWhat Other XR hand LT min 3V*Date of Service: 10/18/21[place] MedWhat Other XR hand LT min 3V* XR/XR hand LT min 3V*: Left hand painMendenhall MedWhat Other XR hand LT min 3V*Copies to: NITZA Edgar [place] MedWhat Other XR hand LT min 3V*4 viewsleft hand plain filmMendenhall MedWhat Other XR hand LT min 3V*COMPARISON:[facility] MedWhat Other XR hand LT min 3V*HISTORY:Left hand injury.[facility] Other XR hand LT min 3V*No fracture, dislocation or focal soft tissue abnormality seen.[facility] Other XR hand LT min 3V* XR/XR hand LT min 3V*[facility] Other XR hand LT min 3V*IMPRESSION:No acute findingsMendenhall MedWhat Other XR hand LT min 3V*Impression dictated by: Elton Rodrigez M.D.10/18/2021 11:50 [facility] MedWhat Other xr hand LT min 3V*Dictation Location: JCIEV-CY-42Flxwe MedWhat Other xr hand LT min 3V*Transcribed By: DIANA 10/18/21 1150 [employer] Other xr hand LT min 3V*Dictated By: Elton Rodrigez DO 10/18/21 1149Ivaldi MedWhat Other xr hand LT min 3V*Signed By:[employer] Other xr hand LT min 3V*10/18/21 115[facility] HospitalLegUP Other phone Msgon 68-62-7979Jbezg MsgEntered by NAZ LONG MD, FACOG on April 22, 2021 15:42:24 EDT From: NAZ LONG MD, FACOG To: [facility]/pharmacy #[id number] Sent: 04/22/2021 15:42:23 EDT Subject: Medication Management Not Approved: Patient should contact Prescriber first ibuprofen = Motrin, Advil (IBUPROFEN 600 MG TABLET) TAKE 1 TABLET BY MOUTH EVERY 6 HOURS Qty: 40 tabs Days Supply: 10 Refills: 0 Substitutions Allowed Route To Pharmacy - [facility]/pharmacy #[id number] From: [id number] To: NAZ LONG MD Sent: April 22, 2021 3:29:46 PM EDT Subject: Medication Management Due: April 08, 2021 4:20:54 PM EDT On Hold Pending Signature Dispensed Drug: ibuprofen = Motrin, Advil (ibuprofen 600 mg oral tablet), TAKE 1 TABLET BY MOUTH EVERY 6 HOURS Quantity: 40 tabs Days Supply: 10 Refills: 0 Substitutions Allowed Notes from Pharmacy: [facility] Operative Reporton [id number] ReportMR#: [id number] [facility] Pt. Name: Torrey Antony Room #: 0C Discharge Date: Birthdate: 1990 OPERATIVE REPORT DATE OF SURGERY: 11/30/2020 SURGEON: Frances Nicole M.D. FIRE BOSS: Maribel Vazquez MD PREAMBLE: A 29-year-old female [...] Nicole M.D. Date Trans: 11/30/2020 10:59 A/mmo DN_JN:[id number] cc: Miriam Reeves, PRESTIDIGITATOR [address] [facility] [address]EoxfnsSbrParkview Health [facility]pelier [facility] GLUCOSE LABon 63-33-7385Ghbxidg [Mass/Vol]75 mg/fAEutlwl11-423Aaq [facility] CenterComment on above:Performed By: #### [id number] #### [facility] [address] [place] [address], [facility] URINE PREGNANCYon 61-40-8700Vykr HCG ( test) Ql (U)NegativeNormalNEGATIVEThe [facility] CenterComment on above:Result Comment: Performed in PACUPerformed By: #### [id number] #### [facility] [address] [place] [address], [facility]Phone Msgon [phone] Msg From: MERCEDES HOPKINS FACOGNAZ To: TORREY ANTONY Sent: 11/20/2020 22:44:14 EDT Subject: Normal pap Torrey, Your pap smear was normal. Naz Long MDNoPremier Health Miami Valley Hospital NorthTHIN PREP IMAGE SEND OUT on 29-22-3557RNEI PREP IMAGE SEND OUTSee ReportNoPremier Health Miami Valley Hospital NorthComment on above:Performed By: #### CD:[id number] #### [facility] [address] [place] [address] Airborne Sensor Specialist: Yobany Diaz MDOperative Reporton 86-38-7487Qzwekvtit ReportIndication for Surgery Desires sterilization Preoperative Diagnosis [...] correct at the end of the procedure. [facility] HospitalAmb Office-Progress Notes-Provideron 88-99-2009Ktz Office-Progress Notes-ProviderAssessment/Plan 1. Cervical cancer screening Z12.4 Ordered: AMB Office/Outpt Est Pt SF MDM / 10-19 min 17143, 11/08/2020 12:43:00 EDT, Cervical cancer screening THIN PREP IMAGE SEND OUT, ROUTINE, 11/08/2020, Specimen type: ULTRASOUND TECH Spec, Dx: Cervical cancer screening Chief Complaint [...] normal: yes Insight and judgement normal: yes ULTRASOUND TECH: External genitalia: normal, no lesions Urethra: normal meatus Vagina: normal no lesions, no discharge, vault normal Cervix: no lesions, no cervical motion tenderness, normal appearance Uterus: normal mobility, non-tender, normal size, shape and consistency Adnexa: normal Cul de sac: normal Perineum: no hemorrhoids, masses or warts noted ULTRASOUND TECH Additional Details Menstrual History Menstrual StatusProphylaxis Problem List/Past Medical History Ongoing Anxiety BMI 33.0-33.9,adult Gastritis Irregular periods IUD (intrauterine device) in place Migraine with aura Historical Procedure/Surgical History Anjana IUD Lot # [id number] (07/29/2020) LAPAROSCOPIC RIGHT OOPHERECTOMY (12/24/2018) D&C/Nexplanon removal () D&C, retained placenta (2014) Pap negative (06/16/2014) Medications ibuprofen 600 mg oral tablet, 600 mg= 1 tabs, ORAL, [id number] Anjana 13.5 mg intrauterine device, 13.5 mg= [...] (Dx about 72). Stroke..: Grandfather and Grandmother. [facility] SystemAmbulatory Clinical Summaryon 33-27-1757Jwhfmkupte Clinical SummaryDODIETORREY SON :1990 Visit Date:11/08/2020 Ambulatory Visit Instructions Your Care Team Attending Physician - NAZ LONG MD, FACOG Primary Care Physician - NO FAMILY PHYSICIAN, 837 Procedures Performed Anjana IUD Lot # [id number] (07/29/2020) LAPAROSCOPIC RIGHT OOPHERECTOMY (12/24/2018) D&C/Nexplanon removal [...] signs, call to get immediate medical attention! [facility] HospitalPhone Msgon 41-16-5899Wxzpf MsgEntered by Luli Ribeiro on September 15, 2020 11:07:26 EDT I called and left her a voice mail to call and scheduled her surgery. Please find the order information listed below. Ordered By:NAZ LONG MD, FACOG REGIMEN_DETAIL: Requested Start Date/Time: 09/14/2020 11:37:00 EDT Intent of therapy: From: Luli Ribeiro ([facility] Surgery Scheduling) To: NAZ LONG MD; Sent: 09/15/2020 16:07:14 EDT Subject: RE: AMB Schedule Surgery called back and scheduled her, made her post op appt. she is scheduled for 11/19/2020 scheduled her, made her post op appt. she is scheduled for 11/19/2020 scanned in [facility]sg From: Luli Ribeiro ([facility] Surgery Scheduling) To: NAZ LONG MD; Sent: 09/15/2020 11:06:57 EDT Subject: RE: AMB Schedule Surgery Called and left her a voice mail to call and schedule her surgery, I am looking at 10/15/2020 at the [facility]. Please find the order information listed below. Ordered By:NAZ LONG MD, FACOG REGIMEN_DETAIL: Requested Start Date/Time: 09/14/2020 11:37:00 EDT Intent of therapy:[facility] HospitalAmbulatory Clinical Summaryon 27-67-8462Bhljikjkkm Clinical SummaryHATORREY ABREU :1990 Visit Date:09/14/2020 Ambulatory Visit Instructions Your Diagnosis Mastalgia Your Care Team Attending Physician - NAZ LONG MD, FACOG Primary Care Physician - NO FAMILY PHYSICIAN, 837 Procedures Performed Anjana IUD Lot # [id number] (07/29/2020) LAPAROSCOPIC RIGHT OOPHERECTOMY (12/24/2018) Laparoscopy, surgical; [...] warning signs, call to get immediate medical attention![facility] HospitalPhone Msgon [phone] Msg From: Cat Diaz To: Luli Ribeiro; Sent: 09/14/2020 12:57:29 EDT Subject: Surgery Pt needs scheduled for a tubal ligation. Forms have been scanned into documents - consent.[facility] HospitalAmbulatory Clinical Summaryon 03-63-1155Zldcivckpl Clinical SummaryHATORREY ABREU :1990 Visit Date:07/29/2020 Ambulatory Visit Instructions Your Diagnosis Pre-procedure lab exam Encounter for IUD removal and reinsertion Tests Performed AMB Urine POC [address]9638 Your Care Team Attending Physician - MERCEDES HOPKINS FACOG, NAZ Primary Care Physician - NO FAMILY PHYSICIAN, 837 Procedures Performed Anjana IUD Lot # [id number] (07/29/2020) Kyleena Iud removed 07/29/20 (12/24/2018) LAPAROSCOPIC [...] formigraine headache Test Results AMB Urine POC 60352 (07/29/2020) U beta hCG Ql - Negative [...] warning signs, call to get immediate medical attention![facility] HospitalPhone Msgon [phone] Msg From: Gay Lam To: Kathleen Lopez RN; Sent: 07/13/2020 15:20:51 EST Subject: test results Patient is calling and would like to have the results from her genetic testing. If you can please call her. [phone] From: Kathleen Lopez RN To: NAZ LONG MD; Sent: 07/13/2020 15:29:49 EST Subject: FW: test results I spoke with her about her results.[facility] GENITALon 06-26-2020 [facility] Dept of Laboratory Services [address] [place] [address] Name: TORREY ANTONY : 1990 Admitting Provider: Gender: Female [facility] [phone] Number: Location: [facility]. Admit 06/22/2020 Date: Discharge 06/22/2020 Date: Microbiology [...] Name: TORREY ANTONY Print Date06/28/2020 08:29 EST Time:[facility] HospitalComment on above:Performed By: #### [id number] #### [facility] [address] [place] [address] Airborne Sensor Specialist: OBDULIO Jackson CHLAMon 08-56-1440Xixiuouh Chlamydia NegativeElyria Memorial HospitalComment on above:Order Comment: Ordered on Fin# [id number] Comment: This Chlamydia assay is being performed via a second generation NAAT that utilizes target capture, material disposition inspector mediated amplification and dual kenetic assay technologies. Performed By: #### CD:[id number], [id number], [id number] ####[facility] [address] [place] [address] Medical Director: OBDULIO Jackson GCon 22-48-3060Sgkxjfzx GCNegativeCox Northal [facility] Memorial HospitalComment on above:Order Comment: Ordered on Fin# [id number] Comment: This Gonorrhoea assay is being performed via a second generation NAAT that utilizestarget capture, material disposition inspector mediated amplification and dual kenetic assay technologies.Performed By: #### CD:[id number], [id number], [id number] ####[facility] [address] [place] [address] Medical Director: OBDULIO Jackson Trichomonason 12-67-8734QK TrichomonasNegativeElyria Memorial HospitalComment on above:Order Comment: Ordered on Fin# [id number] Comment: This Trichomonas assay is being performed via a second generation NAAT that utilizes target capture, material disposition inspector mediated amplification and dual kenetic assay technologies.Performed By: #### CD:[id number], [id number], [id number] ####[facility] [address] [place] [address] Medical Director: CYNTHIA Jackson B AGon 53-88-9460Swenkgsgk B Surface AntigenNon-ReactiveNormal [facility] HospitalComment on above:Order Comment: Ordered on Fin# [id number] Comment: High levels of serum biotin may interfere with this test.Performed By: #### [id number], [id number] #### [facility] [address] [place] [address] Airborne Sensor Specialist: CYNTHIA Jackson C ABon 96-71-8738Xhrmrxvje C Antibody Non-ReactiveElyria Memorial HospitalComment on above:Order Comment: Ordered on Fin# [id number] By: #### [id number], [id number] #### [facility] [address] [place] [address] Airborne Sensor Specialist: TAQUERIA Jackson 1O2on 87-86-7147RZN Panel 1&2 Non-ReactiveElyria Memorial HospitalComment on above:Order Comment: Ordered on Fin# [id number] By: #### [id number] #### [facility] [address] [place] [address] Airborne Sensor Specialist: ARMINDA JacksonPRoliseth 13-11-6130Vnxzix Ab RPR Ql (S) Non-ReactiveElyria Memorial HospitalComment on above:Order Comment: Ordered on Fin# [id number] By: #### [id number] #### [facility] [address] [place] [address] Airborne Sensor Specialist: Dayana Jacksontgh [facility] [place] Clinical Summaryon 06-22-2020 Ambulatory Clinical SummaryTORREY ABREU:1990 [...] Agatha [facility] 2020 11:30 AM EST With: NAZ LONG MD, FACOG Where: Agatha ROBLES You Need to Schedule [...] signs, call 02-16- to get immediate medical attention![facility] Memorial HospitalPhone Sunita [phone] Msg From: Johnna Wilkinson To: John ALEGRIA, Kathleen; Sent: 06/22/2020 12:48:37 EST Subject: Cytote Patient is scheduled to have her Kyleena removed and Anjana inserted on 07/[address] Long. She does not get periods. Will you please call her in a prescription for the cytotec?? She is aware thatshe needs to pick it up when it is called in. Cytote proposedNormHocking Valley Community HospitalUS TV ECHO NON OB OFFICE READon 25-26-2031SS TV ECHO NON OB OFFICE READIndication: IUD [...] in correct position and orientation. Normal left ovary.[facility] Memorial HospitalComment on above:Order Comment: Ordered on Fin# [id number] Comment: Technologist: DM Dictated By: NAZ LONG MD, FACOG Signed By: NAZ LONG MD, FACOG Transcribed: 06.22.2020 14:34 Signed Out: 06/22/20 14:34:04Operative Reporton [id number] ReportMR#: [id number] [facility] Pt. Name: Torrey Antony Room #: 0C Discharge Date: Birthdate: 1990 OPERATIVE REPORT DATE OF SURGERY: 04/26/2020 SURGEON: Frances Nicole M.D. FIRE BOSS: Maribel Vazquez MD PREOPERATIVE DIAGNOSIS: Left wrist [...] Vazquez MD Date Trans: 04/26/2020 11:31 A/simran DN_JN:[id number] cc: Miriam Reeves, PRESTIDIGITATOR [address] [facility] [address]RzufxjFxtParkview Health Montpelier Hospital GLUCOSE LABon 48-91-0470Tjsqipa [Mass/Vol]81 mg/wANdlbfy69-560Qba [facility] CenterComment on above:Performed By: #### 92459 #### [facility] [address] [place] [address], [facility]PO URINE PREGNANCYon 84-89-3197Zrzs HCG ( test) Ql (U)NegativeNormalNEGATIVEThe [facility] CenterComment on above:Result Comment: Performed in PACUPerformed By: #### 32674 #### [facility] [address] [place] [address], [facility]*SARS-CoV-2 COVID-19on 73-27-4661OUWF-CoV-2 (COVID-19) RNA OK+probe Ql (Unsp spec)Not detectedNormalNot DetectedThe [facility] Medical CenterComment on above:Order Comment: The Aptima SARS-CoV-2 assay is a nucleic acid amplification test intended for the qualitative detection of RNA from SARS-CoV-2 isolated and purified from nasopharyngeal (FACS TEACHER),oropharyngeal (OP), nasal swab, sputum, and bronchoalveolar lavage (BAL) specimens from patients with signs and symptoms of infection who are suspected of COVID-19. Results are for the identification of SARS-CoV-2 RNA. The SARS-CoV-2 RNA is generally detectable during the acute phase of infection. The Aptima SARS-CoV-2 Assay on the [employer] system is intended for use by laboratory personnel specifically instructed and trained in the operation of the marinanow and marinanow Fusion system. The Aptima SARS-CoV-2 assay is [...] patient history, and epidemiological information.Performed By: #### [id number] #### [address] Hepatobiliary System w/ Pharmon 55-32-1550KG Hepatobiliary System w/ PharmPatient Name: TORREY ANTONY Nuc Med Exam Date/Time 06/12/2017 13:09:26 EST Exam NM Hepatobiliary Duct System Imaging Ordering Physician DO ROWELL PAUL FRANCIS Accession Number [id number] CPT4 Codes 56018 () Reason For Exam Nausea Report Study: [...] MD BERGER JOHN Transcribed Date and Time:06/12/2017 1:28[facility] ManhattanCNOVon 16-49-2965DJHXSprena Visit (GABY) --------TORREY ANTNOY ([id number]) 1990 FDate Time Provider Otbxfixnay86/5/17 9:30 AM KAMRAN WALLIS) GABY During your visit today, we recorded the following information about you: Temperature Pulse Respiration Blood pressure 96.8 degrees 101/minute 16/minute 113/80 Weight 87.1 kgRachel L CHASIDY Wallis PA 05/22/2017 10:14 AM Ygthle8405/22/2017Patient presents with:Acute VisitSUBJECTIVE: This is a 26 [...] labs, fluids, or any imaging from this [facility] Care settingReferred to ER for further eval of pain- labs, fluids, may need imaging- [facility] ERVitals stable, no fever. She refused offer [...] in agreement with plan of care. FRANSISCO KrishnamurthyKnox Community Hospital MARCIN Jorgensen-[address], [address] [place] [address]Sudzt: [phone]: [phone] P [place] 2016RE: Torrey AntonyTo Whom it May Concern:This is to certify that Torrey Antony was seen here for medical care.Please excuse them from work today.Thank you for your cooperation in this matter.Sincerely,Kamran Wallis PA-C(Electronically signed to expedite processing) Status:Closed by KAMRAN WALLIS on 05/22/17[facility]'s HospitalPROESSon [id number] HNO ID: [id number]: Kamran Lubin (Chasidy) Jesus Wallis: (none)Author Type: [...] pain- labs, fluids, may need imaging-[facility] ERVitals stable, no fever. She refused offerof antiemetics, PPI, and watchan see option for possible simply viral cause- and go to ER this afternoonif persisting. She would prefer ER now.No further questions.Follow up as needed.Barriers to learning: none.The patient verbalizes understanding and is in agreement with plan ofcare.Adam Krishnamurthy [facility] Chest PA/LATon [id number] Chest PA/LATPatient Name: TORREY ANTONY Diagnostic Radiology Exam Date/Time 04/07/2017 10:07:18 EDT Exam CR Chest PA/LAT Ordering Physician MD RUTHIE, MAURO Lubin Accession Number [id number] CPT4 Codes 34615 () Reason For Exam dyspnea Report CHEST [...] CHRISTIAN ADAM Transcribed Date and Time: 04/07/2017 10:25[facility] ManhattanRF Small Bowel w/ Serial Filmson 58-95-1777WC Small Bowel w/ Serial FilmsPatient Name: TORREY ANTONY Fluoroscopy Exam Date/Time01/01/2017 10:06:32 EDT Exam RF Small Bowel w/ Serial Films Ordering Physician DO ROWELL PAUL FRANCIS Accession Number [id number] [facility]4 Codes 17900 () Reason For Exam epigastric pain Report [...] FONG RISA Transcribed Date and Time: 01/01/2017 11:18[facility] Bismarckurgical Pathologyon 26-03-9289Rqygigmx JhlixpcoiYT96-17397 [facility]PART[facility] PATHOLOGY AND LABORATO [address] [address] Fax - FINAL SURGICAL PATHOLOGY REPORT NA ME: TORREY ANTONY .O.B.: 1990 25 Y F BILLING NO.: [id number]: WENDO PROCEDURE 12/12/2016 DATE:SURGEON: MANI ROWELL DO [...] Submitted entirely in one cassette. (2ns, 1) MLC1/ARM8Ujzpzzrvzm: The following statement applies to allimmunohistochemistry, in situ hybridization, molecular studies, andimmunofluorescence testing.The use of one or more reagents in the above tests is regulated as ananalyte specific reagent(ASR). These tests were developed and theirperformance characteristics determined by the clinical laboratories [facility]. They have not been cleared [...] false negativity on decalcified specimens.[place] [address]. DEPARTMENT OF PATHOLOGY AND LABORATORY MEDICINE [place], [place] [address]DpelqgIgogeSt. Vincent's Catholic [facility], ManhattanComment on above:Performed By: #### SHAQ ####Performing Lab is in reportUS Abdomen Limitedon 50-43-0560OH Abdomen LimitedPatient Name: TORREY ANTONY Ultrasound Exam Date/Time 12/12/2016 12:25:54 EDT Exam US Abdomen Limited Ordering Physician DO ROWELL PAUL FRANCIS Accession Number [id number] CPT4 Codes 17903 () Reason For Exam epigasric pain Report [...] CHRISTIAN ADAM Transcribed Date and Time: 12/12/2016 3:07NormalSCorewell Health Pennock HospitalAnti-Nuclear Antibodyon 79-99-6487MKB Titer<1:40Normal<1:40SCorewell Health Pennock HospitalComment on above:Performed By: #### VLADISLAV ####[address] [address] Vital Signs Date TimeVital SignValuePerforming BkaqanxyqHowohnyj09-32-6138 14:50-0400Body wsgrnfubete58.8 [degF]FACS TEACHER-C Tiki Thomas Work Phone: 1(116)[address] [place], [place] 3281004-30-2024 14:50-0400 Diastolic blood nteeazpi40 mm[Hg]FACS TEACHER-C Tiki Thomas Work Phone: 1(850)[address] [place], [place] 3281004-30-2024 14:50-0400 Heart rate77 /minNP-C Tiki Thomas Work Phone: 1(278)[address] [place], [place] 3281004-30-2024 14:50-0400 Respiratory rate16 /minNP-C Tiki Thomas Work Phone: 1(318)[address] [place], [place] 3281004-30-2024 14:50-0400 SaO2% (BldA) [Mass fraction]98 %FACS TEACHER-C Tiki Thomas Work Phone: 1(850)[address] [place], [place] 3281004-30-2024 14:50-0400 Systolic blood hjlzwbon750 mm[Hg]FACS TEACHER-C Tiki William Work Phone: 1(467)[address] [place], [place] 3281004-30-2024 10:05-0400 Body giltov839.1 cmNP-C Tiki Thomas Work Phone: 1(989)[address] [place], [place] 3281004-30-2024 10:05-0400 Body nywnjn69.1 kgNP-C Tiki Thomas Work Phone: [facility]04-29-2024 16:25-0400 Diastolic blood mm[Hg][facility]04-29-2024 16:25-0400Heart rate95 /minSt. Mary'[facility]04-29-2024 16:25-8879NnQ6% (BldA) [Mass fraction]99 %[facility] 10-15-2023 16:25-0400Systolic blood hifzmogm278 mm[Hg][facility]10-05-2023 16:00-0400Body zmwent613.64 cmStushar Choi Other noIvaldi MedWhat Other 10-05-2023 16:00-0400Diastolic blood hhahnwgh89 mm[Hg] Mark Choi Other noLegUP Other 10-05-2023 16:00-8098EyC4% (BldA) [Mass fraction]98 % Mark Choi Other noLegUP Other 10-05-2023 16:00-0400Systolic blood gneynoit100 mm[Hg] Mark Choi Other noLegUP Other 07-05-2023 09:00-0400Body xzbcuv759.64 Vinh Jackman Other noLegUP Other 07-05-2023 09:00-0400Body mass index (BMI) [Ratio] 30.37 kg/g0ZwasfArely Jackman Other [employer] Other 07-05-2023 09:00-0400Body mxugya67.37 kgPekavitha Jackman Other noLegUP Other 07-05-2023 09:00-0400Diastolic blood aemkzomm93 mm[Hg] Arely Jackman Other [facility] MedWhat Other 07-05-2023 09:00-1210KoF7% (BldA) [Mass fraction]99 % Arely Jackman Other [facility] MedWhat Other 07-05-2023 09:00-0400Systolic blood koddxgol383 mm[Hg] Arely Jackman Other [place] MedWhat Other 06-29-2023 13:15-0400Body .64 cmStushar Choi Other [place] MedWhat Other 06-29-2023 13:15-0400Diastolic blood xysycnum85 mm[Hg] Mark Choi Other [place] Med[facility] Other 06-29-2023 13:15-7374KtR4% (BldA) [Mass fraction]98 % Mark Choi Other [place] Med[facility] Other 06-29-2023 13:15-0400Systolic blood nctkaiwc930 mm[Hg] Mark Choi Other [place] Med[facility] Other 06-21-2023 13:08-0400Diastolic blood ghfhfqoe05 mm[Hg] FACS TEACHER-C Tiki William Work Phone: [facility]06-21-2023 13:08-0400 Heart rate87 /minNP-C Tiki William Work Phone: [facility]06-21-2023 13:08-0400 Respiratory rate16 /minNP-C Tiki William Work Phone: [facility]06-21-2023 13:08-0400 SaO2% (BldA) [Mass fraction]98 %FACS TEACHER-C Tiki Thomas Work Phone: [facility]06-21-2023 13:08-0400 Systolic blood nafuxvma714 mm[Hg]FACS TEACHER-C Tiki Thomas Work Phone: [phone] [place], [place] 7576506-21-2023 12:21-0400 Inhaled oxygen flow rate3 L/minNP-C Tiki Thomas Work Phone: [facility]06-21-2023 09:28-0400 Body yyjteb042.1 cmNP-C Tiki Thomas Work Phone: [facility]06-21-2023 09:28-0400 Body .27 kgNP-C Tiki Thomas Work Phone: [phone] [place], [place] 7576505-01-2023 17:00-0400 Body aoddfg309.64 Timmy Choi Other [employer] Other 05-01-2023 17:00-0400Diastolic blood mm[Hg] Mark Choi Other [employer] Other 05-01-2023 17:00-2632HmO2% (BldA) [Mass fraction]98 % Mark Choi Other noLegUP Other 05-01-2023 17:00-0400Systolic blood gkpfbijh950 mm[Hg] Mark Choi Other [employer] Other 03-30-2023 16:30-0400Body ceubit972.64 Mickytushar Choi Other [employer] Other 03-30-2023 16:30-0400Body mass index (BMI) [Ratio] 30.73 kg/p5QpzjqaMark Choi Other [facility] Other 03-30-2023 16:30-0400Body mhooxz45.37 kgMark Choi Other [employer] Other 03-30-2023 16:30-0400Diastolic blood uyqbhepp49 mm[Hg] Mark Ramez Other [employer] Other 03-30-2023 16:30-8241RxO1% (BldA) [Mass fraction]99 % Mark Ramez Other [employer] Other 03-30-2023 16:30-0400Systolic blood btzdhiir883 mm[Hg] Mark Ramez Other [facility] Other 03-09-2023 15:15-0500Body .64 cmStushar Ramez Other [employer] Other 03-09-2023 15:15-0500Diastolic blood lcqyudzq14 mm[Hg] Mark Ramez Other [employer] Other 03-09-2023 15:15-3751FbJ1% (BldA) [Mass fraction]98 % Mark Choi Other [employer] Other 03-09-2023 15:15-0500Systolic blood tsqhyzfx628 mm[Hg] Mark Choi Other [employer] Other 02-14-2023 10:45-0500Body .64 cmSherif Ramez Other [employer] Other 02-14-2023 10:45-0500Diastolic blood mm[Hg] Mark Choi Other [place] MedWhat Other 02-14-2023 10:45-4703UfO8% (BldA) [Mass fraction]99 % Makr Choi Other [facility] Other 02-14-2023 10:45-0500Systolic blood axxnygpw424 mm[Hg] Mark Choi Other [facility] Other 12-07-2022 17:00-0500Body newpeb120.64 cmStushar Choi Other [facility] Other 12-07-2022 17:00-0500Diastolic blood pressureStushar [facility]oi Other [facility] 12-07-2022 17:00-0500Systolic blood mm[Hg] Mark Choi Other [facility] Other 11-15-2022 15:15-0500Body igntql854.64 Vinh Jackman Other [facility] Other 11-15-2022 15:15-0500Body mass index (BMI) [Ratio] 31.53 kg/l1KjhimArely Jackman Other [facility] Other 11-15-2022 15:15-0500Body ciaxxk32.63 kgPekavitha Jackman Other [facility] Other 11-15-2022 15:15-0500Diastolic blood ddywyrex74 mm[Hg] Arely Jackman [facility] Other 11-15-2022 15:15-0500Respiratory rate18 /minPeggy Jackman Other [facility] Other 11-15-2022 15:15-2243YfV0% (BldA) [Mass fraction]99 % Arely Jackman Other [facility] Other 11-15-2022 15:15-0500Systolic blood eqbofjtr538 mm[Hg] Arely Jackman Other [facility] Other 08-19-2022 12:00-0400Body amxbox828.64 cmStushar Choi Other [facility] Other 08-19-2022 12:00-0400Body mass index (BMI) [Ratio] 32.28 kg/c2CnlbnqMark Choi Other [facility] Other 08-19-2022 12:00-0400Body vorcih44.72 kgSheverton Choi Other [facility] Other 08-19-2022 12:00-0400Diastolic blood krzpczew97 mm[Hg] Mark Choi Other [facility] Other 08-19-2022 12:00-8102GqJ9% (BldA) [Mass fraction]99 % Mark Choi Other [facility] Other 08-19-2022 12:00-0400Systolic blood bggxlyjq338 mm[Hg] Mark Choi Other [facility] Other 07-27-2022 16:45-0400Body isfett625.64 cmStushar Choi Other [facility] Other 07-27-2022 16:45-0400Diastolic blood ndirwxhq83 mm[Hg] Mark Choi Other [facility] Other 07-27-2022 16:45-9619TtK9% (BldA) [Mass fraction]99 % [facility] 07-27-2022 16:45-0400Systolic blood inovmbks076 mm[Hg] Mark Choi Other [facility] Other 07-11-2022 12:30-0400Body .64 Timmy Choi Other [facility] Other 07-11-2022 12:30-0400Body mass index (BMI) [Ratio] 33.25 kg/l6Paicxa Ramez Other [facility] Other 07-11-2022 12:30-0400Body neqkic68.44 kgShketurahasa Ramez Other [facility] Other 07-11-2022 12:30-0400Diastolic blood mm[Hg] Mark Choi Other [facility] Other 07-11-2022 12:30-1544ZpV9% (BldA) [Mass fraction]99 % Mark Choi Other [facility] Other 07-11-2022 12:30-0400Systolic blood majrczyo366 mm[Hg] Mark Medeirosky Other [facility] Other 06-09-2022 14:45-0400Body aopteh455.64 cmStushar Choi Other [facility] Other 06-09-2022 14:45-0400Body mass index (BMI) [Ratio] 34.05 kg/k4Lfzgmu Zaky Other [facility] Other 06-09-2022 14:45-0400Body tblpan96.71 kgSheverton Choi [facility] 06-09-2022 14:45-0400Diastolic blood aiiellqj26 mm[Hg] Mark Ramez [facility] 06-09-2022 14:45-2762NzS5% (BldA) [Mass fraction]99 % [facility] 06-09-2022 14:45-0400Systolic blood xltymckc805 mm[Hg] Mark Ramez Other [facility] Other 05-27-2022 11:00-0400Body rwuxzp385.64 cmStushar Choi Other [facility] Other 05-27-2022 11:00-0400Body mass index (BMI) [Ratio] 33.89 kg/m3Wiyvnc Zaky Other [facility] Other 05-27-2022 11:00-0400Body .26 kgShketurahasa Choi Other [facility] Other 05-27-2022 11:00-0400Diastolic blood zyvajirw39 mm[Hg] [facility] 05-27-2022 11:00-8907LvC8% (BldA) [Mass fraction]93 % Mark Choi Other [facility] Other 05-27-2022 11:00-0400Systolic blood gibtngyx131 mm[Hg] Mark Choi Other [facility] Other 05-05-2022 12:15-0400Body .64 cmPegleopoldo Jackman Other [facility] Other 05-05-2022 12:15-0400Body mass index (BMI) [Ratio] 33.25 kg/g7Hcrgx Jackman Other [facility] Other 05-05-2022 12:15-0400Body oqeafu36.44 kgPeggy Jackman Other [facility] Other 05-05-2022 12:15-0400Diastolic blood ucvmhqzi52 mm[Hg] Arely Jackman Other [facility] Other 05-05-2022 12:15-0400Systolic blood arbtsobf117 mm[Hg] Arely Jackman Other [facility] Other 05-03-2022 12:15-0400Body ezcutu019.64 Ketty Quinonez Other [facility] Other 05-03-2022 12:15-0400Body mass index (BMI) [Ratio] 33.41 kg/p4EaamgvTiki Quinonez Other [facility] Other 05-03-2022 12:15-0400Body pgbmaqexlho38.7 [degF]Tiki Quinonez Other [facility] Other 05-03-2022 12:15-0400Body potggh79.9 kgTiki Quinonez Other [facility] Other 05-03-2022 12:15-0400Diastolic blood abshfvuu67 mm[Hg] Tiki Quinonez Other [facility] Other 05-03-2022 12:15-0400Respiratory rate18 /minTiki Quinonez Other [facility] Other 05-03-2022 12:15-0764KcQ2% (BldA) [Mass fraction]99 % Tiki Quinonez Other [facility] Other 05-03-2022 12:15-0400Systolic blood cygmkkjy993 mm[Hg] Tiki Quinonez Other [facility] Other 03-30-2022 14:00-0400Body jepzvj319.64 cmSandrés Choi Other [facility] Other 03-30-2022 14:00-0400Body mass index (BMI) [Ratio] 33.54 kg/i7Hrvuyg Ramez Other [facility] Other 03-30-2022 14:00-0400Body kscabo42.26 kgMark Choi Other [facility] Other 03-30-2022 14:00-4873WfH2% (BldA) [Mass fraction]99 % Mark Choi Other [facility] Other 03-14-2022 11:15-0400Body .64 cmSherif Ramez Other [facility] Other 03-14-2022 11:15-0400Body mass index (BMI) [Ratio]2.19 kg/r7RrmsmyMark Choi Other [facility] Other 03-14-2022 11:15-0400Body weight6.17 kgSheverton Choi Other [facility] Other 03-14-2022 11:15-0400Diastolic blood djpmcjea57 mm[Hg] Mark Choi Other [facility] Other 03-14-2022 11:15-4926MlC4% (BldA) [Mass fraction]99 % Mark Choi Other [facility] Other 03-14-2022 11:15-0400Systolic blood atwpoquw210 mm[Hg] Mark Medeirosky Other [facility] Other 02-24-2022 11:45-0500Body tfearf871.64 cmPeggy Jackman Other [facility] Other 02-24-2022 11:45-0500Body mass index (BMI) [Ratio] 34.59 kg/t4Zxlmk Jackman Other [facility] Other 02-24-2022 11:45-0500Body ylsjdv73.21 kgPeggy Jackman Other [facility] Other 02-24-2022 11:45-0500Diastolic blood cbcezkyt43 mm[Hg] Arely Jackman Other [facility] Other 02-24-2022 11:45-0500Respiratory rate18 /minPeggy Jackman Other [facility] Other 02-24-2022 11:45-7075IpW6% (BldA) [Mass fraction]98 % Arely Jackman Other [facility] Other 02-24-2022 11:45-0500Systolic blood owvkiagt423 mm[Hg] Arely Jackman Other [facility] Other 02-10-2022 11:30-0500Body qlwjyk007.64 cmPeggy Jackman Other [facility] Other 02-10-2022 11:30-0500Body mass index (BMI) [Ratio] 34.76 kg/r0Zeusu Jackman Other [facility] Other 02-10-2022 11:30-0500Body ajzayq91.71 kgPeggy Jackman Other [facility] Other 02-10-2022 11:30-0500Diastolic blood spjclsys97 mm[Hg] Arely Jackman Other [facility] Other 02-10-2022 11:30-0500Respiratory rate18 /minPeggy Jackman Other [facility] Other 02-10-2022 11:30-6937MwU9% (BldA) [Mass fraction]98 % Arely Jackman Other [facility] Other 02-10-2022 11:30-0500Systolic blood smlyvhek535 mm[Hg] Arely Jackman Other [facility] Other 01-19-2022 15:00-0500Body erwapz277.64 cmDaniyaz Garcia Other [facility] Other 01-19-2022 15:00-0500Body mass index (BMI) [Ratio] 34.38 kg/w8Uxatvn Jose Other [facility] Other 01-19-2022 15:00-0500Body .62 kgDaniyaz Garcia Other [facility] Other 12-07-2021 14:00-0500Body adxnhp541.64 cmAndra Salomon Other [facility] Other 12-07-2021 14:00-0500Body mass index (BMI) [Ratio] 34.38 kg/j7Ahkie Salomon Other [facility] Other 12-07-2021 14:00-0500Body .62 kgAndra Salomon Other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
--- NOTE | 2025-05-28 15:37 | PM.CN ---
Consult Note: HPI Data of Consult Patient: known to practice within the last 3 years Requesting Physician: Tamar Guevara NP Primary Care Provider: OCTAVIA THOMAS Consult Narrative Reason for consult: f/u Narrative: Joy Arzola a 34 year old female presents for chronic left arm pain post work related injury. Pain 4/10 increasing to 10/10 with pushing, pulling, arm movement, lifting, activity. Patient has failed to benefit from tylenol, motrin, meloxicam, duloxetine, gabapentin, lyrica, baclofen, amitritptyline and zonegran. has failed compound cream in the past. since last visit [facility] did add CRPS to approved diagnosis list, we are now able to proceed with further interventional therapy. Pt recently underwent left stellate ganglion block #1 with mild relief, noting around 35% improvement in pain, noting improvement in aching pain however she continues to endorse edema and hyperalgesia to left lower arm. cc:: CC: Tamar Guevara NP Review of Systems ROS Status of ROS 10 or more systems reviewed and unremarkable except as noted in history and below Musculoskeletal Reports: extremity pain PFSH PFSH Medical History (Updated 04/14/25 @ 13:19 by Gayle Haywood, AIRAM) CRPS (complex regional pain syndrome), upper limb ?G90.519 - Complex regional pain syndrome I of unspecified upper limb (ICD-10) Hypothyroid ?E03.9 - Hypothyroidism, unspecified (ICD-10) Irregular heart beat ?I49.9 - Cardiac arrhythmia, unspecified (ICD-10) Surgical History (Updated 04/14/25 @ 13:19 by Gayle Haywood RN) History of surgery on arm ?Z98.890 - Other specified postprocedural states (ICD-10) History of hysterectomy ?Z90.710 - Acquired absence of both cervix and uterus (ICD-10) Social History Little interest or pleasure in doing things: not at all Feeling down, depressed, or hopeless: not at all Meds Home Medications and Allergies Home Medications ?Medication ?Instructions ?Recorded ?Confirmed ?Type dextroamphetamine-amphetamine 15 15 mg PO DAILY 08/28/23 05/18/25 History mg tablet (Adderall) multivitamin 1 tab PO DAILY 08/28/23 05/18/25 History ondansetron HCl 4 mg tablet 4 mg PO PRN nausea and vomiting 06/23/24 History desvenlafaxine succinate 25 mg 25 mg PO DAILY 05/18/25 05/18/25 History tablet,extended release 24 hr (Pristiq) mecobalamin (vitamin B12) 1,000 1,000 mcg PO DAILY 05/18/25 05/18/25 History mcg chewable tablet Allergies Allergy/AdvReac Type Severity Reaction Status Date / Time Penicillins Allergy Severe Hives Verified 05/18/25 07:54 Exam Constitutional Documenting provider has reviewed patient's vital signs: yes Common normals: no apparent distress, oriented x3 and alert General appearance: cooperative HENID Common normals: normocephalic, hearing grossly normal bilaterally and moist oral mucous membranes Head and scalp: normocephalic Eye Common normals: PERRL Pupil: PERRL Neck & C-Spine Common normals: full ROM General: normal visual inspection Chest Common normals: inspection of chest normal Respiratory Common normals: normal respiratory effort, no retractions and no use of accessory muscles Extremity Left upper extremity: lower arm Other: very mild dermatographia on the left upper extremity compared to the right. mild dysesthesia and hypoesthesia, as well as allodynia in patchy areas of her left upper extremity compared to the right. no appreciable nail growth changes and possibly some mild hair growth changes of her left upper extremity compared to the right. strength 3/5 in LUE and 5/5 in RUE Neuro Common normals: oriented x3 Sensorium/orientation: alert Psych Common normals: mental status grossly normal, thought process normal, cooperative, affect normal, speech normal and activity/motor behavior normal Speech: normal speech Thought process: normal thought process Results Additional Findings Additional findings: If on a controlled substance or opioids, I have checked an [place] report on this patient and there are no aberrancies noted in the prescribing history.??If on a controlled substance or opioid a drug screen was completed and reviewed within the last year, and if there has not been a drug screen completed we ordered one today to monitor higher risk, state monitored pain medication use. As part of providing excellent, safe, comprehensive care, the following was completed at our patient's visit: 1. A medication reconciliation and review to ensure accurate knowledge of current/active medications, including asking our patients to inform us about any [id number] medications or herbal remedies/nutritional supplements/alternative remedies. 2. A review to specifically ensure our patients have had annual screening for screening for depression, screening for tobacco use, and screening for unhealthy alcohol use. For concerning screenings had a discussion with the patient, provided patient education, and recommended follow-up with primary care provider when appropriate. If patient noted with a risk of falling, they received education on strength, gait, and balance training to prevent future risk of falling. Portions of this note may have been carried over from the previous visit and updated as appropriate. Please note this office utilizes paper charting in addition to the electronic medical record. A list of current medications, vitals, and PMH is available there as the clinical staff outside of myself do not have access to [employer] charting during the clinic day operations. As part of providing quality comprehensive care the current medications, vitals, and PMH were reviewed in the paper chart. Assessment and Plan Assessment and Plan (1) CRPS (complex regional pain syndrome): Assessment and Plan: Joy Arzola a 34 year old female presents for chronic left arm pain post work related injury. Pain 4/10 increasing to 10/10 with pushing, pulling, arm movement, lifting, activity. Patient has failed to benefit from tylenol, motrin, meloxicam, duloxetine, gabapentin, lyrica, baclofen, amitritptyline and zonegran. has failed compound cream in the past. since last visit [facility] did add CRPS to approved diagnosis list, we are now able to proceed with further interventional therapy. 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
== END 2025-05-28 15:18 | disposition home or self-care (01) ==
LOC: PM 15:18
PROVIDERS: PCP Nurse Practitioner Family; Visit Provider Nurse Practitioner
DX: G90.512 Complex regional pain syndrome I of left upper limb (principal)
CPT/HCPCS: G0463